=== PATIENT | male | born 1950 | race Caucasian/White ===

== ENCOUNTER 2019-07-11 11:51 | Emergency (ER) | payer MEDICARE, OTHER, SELFPAY ==
[2019-07-11 12:06] VITALS: BP 115/64; PULSE 85; RESP 18; TEMP 36.9; O2SAT 100
--- NOTE | 2019-07-11 12:30 | ED.WOUNDLAC ---
HPI - Wound/Laceration General Chief Complaint: Wound/Laceration Stated Complaint: fall Time Seen by Provider: 07/11/19 12:16 Source: patient and RN notes reviewed Mode of arrival: ambulatory Limitations: no limitations History of Present Illness HPI narrative: 69-year-old male presents with concern for skin tears after a fall last night. Reports bilateral skin tears on dorsal aspect of hands. Reports he dressed them last night, has not seen them since he put dressing on them. He denies any hand pain, decreased facial motion, swelling, decreased sensation. Extremity Location: Bilateral: hand Related Data Home Medications Medication Instructions Recorded Confirmed albuterol sulfate INHALATION 07/11/19 albuterol sulfate [ProAir HFA] INHALATION 07/11/19 atorvastatin 07/11/19 brimonidine 07/11/19 clobetasol TOPICAL 07/11/19 cyclobenzaprine mg 07/11/19 dorzolamide-timolol 07/11/19 furosemide 07/11/19 gabapentin 07/11/19 glimepiride mg 07/11/19 hydrochlorothiazide 07/11/19 meloxicam 07/11/19 metformin mg PO 07/11/19 prednisone 07/11/19 tamsulosin mg PO 07/11/19 tramadol mg 07/11/19 trimethoprim 07/11/19 Allergies Allergy/AdvReac Type Severity Reaction Status Date / Time No Known Allergies Allergy Unknown Verified 06/26/18 07:50 Review of Systems Review of Systems: Narrative: CONSTITUTIONAL: Denies malaise, chills, sweats, or fever. CARDIOVASCULAR: Denies chest pain, palpitations RESPIRATORY: Denies dyspnea. SKIN: Reports skin tears bilateral dorsal aspect of hands MUSCULOSKELETAL: Denies decreased range of motion, musculoskeletal pain NEUROLOGIC: Denies numbness, weakness. All systems reviewed & are unremarkable except as noted in HPI and below PMFSH Comments At time of signature, agree with nursing past medical, surgical, social and family history. There is no relevant family history pertinent to the presenting complaint Exam Narrative: Exam Narrative: GENERAL: Well-appearing, well-nourished, and in no acute distress. HEAD: Normocephalic, atraumatic. EYES: PERRLA, conjunctivae clear ENT: Mucous membranes moist. NECK: Supple. CHEST: No respiratory distress. Speaks in full sentences. HEART: Regular rate and rhythm EXTREMITIES: Bilateral upper extremities have normal range of motion, no edema, normal strength and sensation. SKIN: Warm, dry, no rash. Superficial skin tears noted to dorsal aspect of hands bilaterally, ranging in size from 2 cm x 1.5cm to 2 cm x 4 cm. No surrounding erythema, edema, induration, drainage, wound beds pink. NEURO: Alert and oriented x3. PSYCH: Normal mood and affect Course Course Emergency Course: Patient is aware of diagnosis, understands and agrees to treatment plan. Anticipatory guidance given. Patient agrees to follow-up as directed and is aware of reasons to seek care at the emergency department. Portions of this record may have been created with voice recognition software Vital Signs Vital signs: Vital Signs Temperature 98.5 F 07/11/19 12:06 Pulse Rate 85 07/11/19 12:06 Respiratory Rate 18 07/11/19 12:06 Blood Pressure 115/64 07/11/19 12:06 Pulse Oximetry 100 07/11/19 12:06 Temperature 98.5 F 07/11/19 12:06 Pulse Rate 85 07/11/19 12:06 Respiratory Rate 18 07/11/19 12:06 Blood Pressure 115/64 07/11/19 12:06 Pulse Oximetry 100 07/11/19 12:06 Reviewed. MDM - Wound/Laceration MDM Narrative Medical decision making narrative: Exam findings show no acute concerns or changes; patient is non-toxic appearing and is in no distress. Patient is appropriate for outpatient treatment and follow-up. Differential Diagnosis Differential diagnosis: Likely laceration, abrasion and avulsion of skin Critical Care Time Critical Care Time Critical Care Time: No Discharge Plan Discharge Clinical Impression: Skin tear of hand without complication Qualifiers: Encounter type: sequela Laterality: unspecified laterality Qu
== END 2019-07-11 12:43 | disposition home or self-care (01) ==
PROVIDERS: Emergency Provider Nurse Practitioner; PCP Family Medicine Adolescent Medicine
DX: S61.412A Laceration without foreign body of left hand, initial encounter (principal); S61.411A Laceration without foreign body of right hand, initial encounter; W19.XXXA Unspecified fall, initial encounter; E11.9 Type 2 diabetes mellitus without complications; Z79.84 Long term (current) use of oral hypoglycemic drugs
CPT/HCPCS: 99212; G0463

== ENCOUNTER 2019-10-27 05:35 | Emergency (ER) | payer MEDICARE, OTHER, SELFPAY ==
[2019-10-27] VITALS (19 sets, daily range): BP systolic 123–176; BP diastolic 95–125; PULSE 81–113; RESP 16–18; TEMP 36.1; O2SAT 70–100
--- NOTE | ~2019-10-27 | CT_ITS ---
EXAMINATION: CT abdomen pelvis w con INDICATION: Severe abdominal pain TECHNIQUE: Computed tomographic images of the abdomen and pelvis were obtained after the administrati on of 100 cc of Omnipaque 350 intravenous contrast. The dose-length product (DLP) was 990.89 mGy-cm. Automated exposure control and iterative reconstruction technique were employed. COMPARISON: 10/21/2016 FINDINGS: Minimal dependent atelectasis is present in the lung bases. The heart size is normal. Calci fied coronary artery atherosclerosis is noted. Punctate calcifications in otherwise normal appearing liver and spleen likely represent healed granulomatous disease. The pancreas, gallbladder, and adrena l glands are normal. Cysts of the kidneys measure up to 2.6 cm on the left. No pathologically enlarge d abdominal or pelvic lymph nodes are identified. There is no free intraperitoneal gas or evidence of bowel obstruction. A moderate volume of colonic stool is present. The appendix is normal. A a penile pump reservoir is present anteriorly in the left pelvis. There are changes of posterior fusion and l aminectomy from L3 through L5. There has been interval development of near-complete posterior subluxa tion of L2 on L3 with central canal stenosis. There is worsened anterior wedging of the L2 vertebral body. The L3 stabilization screw penetrates through the superior endplate of the vertebral body. Ther e are no significant signs to suggest discitis/osteomyelitis. Changes of right sacroiliac fusion are noted. IMPRESSION: 1. Near complete posterior subluxation of L2 on L3 with central canal stenosis. Emergent spine surgic al evaluation is recommended. These findings and recommendations were discussed with Dr. Leroy in the Emergency Department at 0750 hours on 10/27/2019. Reviewed, dictated and finalized at location A. IMPRESSION: 1. Near complete posterior subluxation of L2 on L3 with central canal stenosis. Emergent spine surgical evaluation is recommended. These findings and recommen dations were discussed with Dr. Leroy in the Emergency Department at 0750 hours on 10/27/2019.
--- NOTE | 2019-10-27 06:09 | ED.ABDPAIN ---
HPI - Abdominal Pain General Chief Complaint: Abdominal Pain <Ana Maria Rosales MD - Last Filed: 10/27/19 21:01> Stated Complaint: BACK & ABD PAIN <Ana Maria Rosales MD - Last Filed: 10/27/19 21:01> Time Seen by Provider: 10/27/19 05:58 <Ana Maria Rosales MD - Last Filed: 10/27/19 21:01> Source: patient <Ana Maria Rosales MD - Last Filed: 10/27/19 21:01> Mode of arrival: ambulatory <Ana Maria Rosales MD - Last Filed: 10/27/19 21:01> Limitations: no limitations <Ana Maria Rosales MD - Last Filed: 10/27/19 21:01> History of Present Illness HPI narrative: This patient is a 69 year old male who with chronic back pain who presents for evaluation of abdominal pain and back pain. PAtient reports he has history of chronic back pain and he is suppose to have surgery in November. His back pain has gotten worse over the past day. HE normally takes ibuprofen for his pain but he tried taking tramadol tonight. He reports his pain is 11/10 . He also developed diffuse abdominal pain last. He believe his back pain is so severe that it is causing his abdominal pain. He has nausea but no vomiting or diarrhea. He also denies fever , chills or urinary complaints, <Ana Maria Rosales MD - Last Filed: 10/27/19 21:01> Related Data Home Medications: Home Medications Medication Instructions Recorded Confirmed albuterol sulfate INHALATION 07/11/19 albuterol sulfate [ProAir HFA] INHALATION 07/11/19 atorvastatin 07/11/19 brimonidine 07/11/19 clobetasol TOPICAL 07/11/19 cyclobenzaprine mg 07/11/19 dorzolamide-timolol 07/11/19 furosemide 07/11/19 gabapentin 07/11/19 glimepiride mg 07/11/19 hydrochlorothiazide 07/11/19 meloxicam 07/11/19 metformin mg PO 07/11/19 prednisone 07/11/19 tamsulosin mg PO 07/11/19 tramadol mg 07/11/19 trimethoprim 07/11/19 <Ana Maria Rosales MD - Last Filed: 10/27/19 21:01> Allergies/Adverse Reactions: Allergies Allergy/AdvReac Type Severity Reaction Status Date / Time No Known Allergies Allergy Unknown Verified 10/27/19 05:37 <Ana Maria Rosales MD - Last Filed: 10/27/19 21:01> Review of Systems Review of Systems: All systems reviewed & are unremarkable except as noted in HPI and below <Ana Maria Rosales MD - Last Filed: 10/27/19 21:01> Constitutional: Constitutional: Denies chills and Denies fever(s) <Ana Maria Rosales MD - Last Filed: 10/27/19 21:01> Gastrointestinal: Gastrointestinal: Reports abdominal pain and Reports nausea <Ana Maria Rosales MD - Last Filed: 10/27/19 21:01> Genitourinary: Genitourinary: Denies hematuria, Denies dysuria, Denies urinary frequency and Denies urinary incontinence <Ana Maria Rosales MD - Last Filed: 10/27/19 21:01> Musculoskeletal: Musculoskeletal: Reports back pain <Ana Maria Rosales MD - Last Filed: 10/27/19 21:01> [facility] Past Medical History Medical History: Medical History (Updated 10/27/19 @ 11:27 by Efrain Leroy MD) Diabetes mellitus Hypertension <Ana Maria Rosales MD - Last Filed: 10/27/19 21:01> Surgical History Surgical History: Surgical History (Updated 10/27/19 @ 06:13 by Ana Maria Rosales MD) Previous back surgery <Ana Maria Rosales MD - Last Filed: 10/27/19 21:01> Social History Social History: Social History (Updated 10/27/19 @ 06:14 by Ana Maria Rosales MD) Smoking status: Never smoker Gender identity (if verbalized by the patient): Male <Ana Maria Rosales MD - Last Filed: 10/27/19 21:01> Exam Const: General: alert and ill appearing chronically <Ana Maria Rosales MD - Last Filed: 10/27/19 21:01> Nutritional Appearance: thin <Ana Maria Rosales MD - Last Filed: 10/27/19 21:01> Orientation/consciousness: patient oriented x3 <Ana Maria Rosales MD - Last Filed: 10/27/19 21:01> HENMT: Head: normocephalic and atraumatic <Ana Maria Roasles MD - Last Filed: 10/27/19 21:01> Mouth: Yes Normal oral and palatal mucosa present
[2019-10-27] MEDS: ONDANSETRON INJ 4 MG/2 ML VIAL IV PUSH (06:22)
[2019-10-27 06:45] LABS: Alanine Aminotransferase 16 U/L (4-50); Albumin Level 4.6 g/dL (3.5-5.1); Alkaline Phosphatase 93 U/L (38-126); Anion Gap 11 mmol/L (8-16); Aspartate Amino Transferase 27 U/L (17-59); Blood Urea Nitrogen 30 mg/dL (9-20); Calcium 9.6 mg/dL (8.4-10.2); Carbon Dioxide 23 mmol/L (22-30); Chloride 102 mmol/L (98-107); Estimated CRCL calculation 40 ml/min; Estimated Glomerular Filt Rate 43; Glucose 105 mg/dL (75-110); Lipase 115 U/L (23-300); Potassium 4.5 mmol/L (3.4-5.0); Sodium 136 mmol/L (137-145)
[2019-10-27 06:46] LABS: Basophils Absolute Auto 0.1 K/mm3 (0.0-0.1); Basophils Percent Auto 0.8 % (0.2-1.2); Eosinophils Absolute Auto 0.6 K/mm3 (0-0.3); Eosinophils Percent Auto 7.8 % (0-4.4); Hematocrit 42.3 % (42.0-52.0); Hemoglobin 14.2 g/dL (14.0-18.0); Immature Granulocyte Absolute 0.03 K/mm3 (0.00-0.031); Immature Granulocyte Percent A 0.4 % (0-0.5); Lymphocytes Absolute Auto 1.29 K/mm3 (0.9-3.2); Lymphocytes Percent Auto 17.1 % (18.3-44.2); Mean Corpuscular HGB Conc 33.6 g/dl (32-36); Mean Corpuscular Hemoglobin 29.5 pg (26-34); Mean Corpuscular Volume 87.8 fl (80-100); Mean Platelet Volume 10.7 fl (7.4-10.4); Monocytes Absolute Auto 0.6 K/mm3 (0.1-0.6); Monocytes Percent Auto 8.5 % (2.6-8.5); Neutrophils Percent Auto 65.4 % (45.5-73.1); Platelet Count Result 195 k/mm3 (150-375); Red Blood Count 4.82 M/mm3 (4.6-6.20); Red Cell Distribution Width 13.6 % (11.5-14.5); White Blood Count 7.6 K/mm3 (4.5-10.0)
--- NOTE | 2019-10-27 07:19 | PC.NURSE ---
Patient attempting to provide urine sample, stating I probably can't go . Patient refuses catheter for urine specimen. Urinal at bedside.
[2019-10-27 08:33] LABS: Add Urine Microscopic? YES; Appearance Urine Clear (Clear); Bilirubin Urine Negative (Negative); Blood Urine Negative (Negative); Color Urine Straw (Yellow); Glucose Urine UA Negative (Negative); Ketones Urine Trace mg/dL (Negative); Leukocyte Esterase Ur Negative LEU/UL (Negative); Nitrate Urine Negative (Negative); Protein Urine Negative (Negative); RBC Urine 0-2 /hpf (0-2); Specific Grav Ur 1.023 (1.001-1.035); Urobilinogen Urine Negative mg/dL (<2.0); WBC Urine 0-3 /hpf
--- NOTE | 2019-10-27 14:00 | PC.NURSE ---
Pt asking to speak to MD regarding transfer. MD informed and came to bedside to updated patient and answer questions. This RN attempting to obtain vital signs, pt stated get this off of me pointing to blood pressure cuff. Blood pressure cuff and monitoring leads removed per pt request. No distress noted.
--- NOTE | 2019-10-27 14:00 | PC.NURSE ---
Patient requesting to speak to MD. MD Leroy to bedside to discuss transfer with patient and answer all questions. All questions answered regarding transfer. This RN attempting to obtain vital signs, pt states get this off of me pointing to blood pressure cuff. Monitoring equipment removed per pt request.
--- NOTE | 2019-10-27 14:30 | PC.NURSE ---
Pt updated that we are waiting on a bed for him at other hospital for his transfer but that we are staying in contact with them and will update him.
--- NOTE | 2019-10-27 15:00 | PC.NURSE ---
Pt called out wanting to speak with MD. This RN spoke with pt. Pt states he doesn't want to wait for a bed at [facility] and states that he will just followup with them on Thursday. Spoke with MD and he states pt can either wait to be transferred or sign out AMA.
== END 2019-10-27 15:23 | disposition left against medical advice (07) ==
PROVIDERS: General Practice; Emergency Provider Emergency Medicine; PCP Family Medicine Adolescent Medicine
DX: M54.5 Low back pain (principal); R10.84 Generalized abdominal pain; E11.9 Type 2 diabetes mellitus without complications; I10 Essential (primary) hypertension; M48.061 Spinal stenosis, lumbar region without neurogenic claudication; M43.5X6 Other recurrent vertebral dislocation, lumbar region; Z79.84 Long term (current) use of oral hypoglycemic drugs
CPT/HCPCS: 36415; 74177; 80053; 81001; 83690; 85025; 96374; 96375; 99284; J1170; J2405; Q9967

== ENCOUNTER 2019-10-28 05:55 | Emergency (ER) | payer MEDICARE, OTHER, SELFPAY ==
[2019-10-28 05:58] VITALS: BP 171/96; PULSE 97; RESP 19; TEMP 36.3; O2SAT 99
[2019-10-28 06:22] VITALS: BP 146/103; PULSE 94; RESP 18; O2SAT 100
[2019-10-28 06:40] VITALS: BP 136/99; BP 161/98; PULSE 94; PULSE 99
[2019-10-28] MEDS: ONDANSETRON INJ 4 MG/2 ML VIAL IV PUSH (06:48)
[2019-10-28 07:18] LABS: Basophils Percent Auto 0.6 % (0.2-1.2); Eosinophils Absolute Auto 0.4 K/mm3 (0-0.3); Eosinophils Percent Auto 4.8 % (0-4.4); Hematocrit 47.2 % (42.0-52.0); Immature Granulocyte Absolute 0.02 K/mm3 (0.00-0.031); Immature Granulocyte Percent A 0.3 % (0-0.5); Lymphocytes Percent Auto 15.2 % (18.3-44.2); Mean Corpuscular HGB Conc 33.9 g/dl (32-36); Mean Corpuscular Hemoglobin 30.2 pg (26-34); Mean Corpuscular Volume 89.1 fl (80-100); Mean Platelet Volume 10.5 fl (7.4-10.4); Monocytes Absolute Auto 0.5 K/mm3 (0.1-0.6); Monocytes Percent Auto 7.5 % (2.6-8.5); Neutrophils Absolute Auto 5.2 K/mm3 (1.3-6.7); Neutrophils Percent Auto 71.6 % (45.5-73.1); Platelet Count Result 206 k/mm3 (150-375); Red Cell Distribution Width 13.8 % (11.5-14.5); White Blood Count 7.2 K/mm3 (4.5-10.0)
[2019-10-28 07:24] LABS: Alanine Aminotransferase 19 U/L (4-50); Albumin Level 5.3 g/dL (3.5-5.1); Alkaline Phosphatase 109 U/L (38-126); Anion Gap 14 mmol/L (8-16); Aspartate Amino Transferase 33 U/L (17-59); Bilirubin,Total 1.4 mg/dL (0.2-1.3); Blood Urea Nitrogen 25 mg/dL (9-20); Calcium 11.6 mg/dL (8.4-10.2); Carbon Dioxide 24 mmol/L (22-30); Chloride 101 mmol/L (98-107); Estimated Glomerular Filt Rate 50; Ethanol < 10 mg/dL (<10); Glucose 128 mg/dL (75-110); Lipase 114 U/L (23-300); Potassium 4.5 mmol/L (3.4-5.0); Sodium 139 mmol/L (137-145)
--- NOTE | 2019-10-28 08:13 | ED.NAVMDI ---
HPI - Nausea/Vomiting/Diarrhea General Chief complaint: Nausea/Vomiting/Diarrhea Stated complaint: Sick to stomach Time Seen by Provider: 10/28/19 06:59 History of Present Illness HPI Narrative: Patient is a 69-year-old male who presents the ER with nausea and vomiting. Reports he has had a couple episodes where he is vomited at home and wanted to be evaluated to receive medication for it. Patient was seen in the ER yesterday. He was diagnosed with near complete subluxation of L2 on L3 with severe central canal stenosis. It was recommended that he get an emergent neurosurgical consultation. Patient has history of chronic back issues and is scheduled for back surgery in November of this year. Due to the imaging results [facility] was contacted and patient was accepted to be a transfer and direct admit to the hospital over there. Patient reports he waited around for 4 to 5 hours and when he did not have a bed he signed out AGAINST MEDICAL ADVICE. Since going home there is been no change. Reports she has waves of pain from his back that will cause him to be nauseated and vomit. He has no new lower extremity weakness or numbness. No saddle anesthesia or difficulty sensing when he is going to urinate or defecate. He denies any incontinence or retention of stool/urine. Related Data Home Medications Medication Instructions Recorded Confirmed albuterol sulfate INHALATION 07/11/19 albuterol sulfate [ProAir HFA] INHALATION 07/11/19 atorvastatin 07/11/19 brimonidine 07/11/19 clobetasol TOPICAL 07/11/19 cyclobenzaprine mg 07/11/19 dorzolamide-timolol 07/11/19 furosemide 07/11/19 gabapentin 07/11/19 glimepiride mg 07/11/19 hydrochlorothiazide 07/11/19 meloxicam 07/11/19 metformin mg PO 07/11/19 prednisone 07/11/19 tamsulosin mg PO 07/11/19 tramadol mg 07/11/19 trimethoprim 07/11/19 Allergies Allergy/AdvReac Type Severity Reaction Status Date / Time No Known Allergies Allergy Unknown Verified 10/28/19 06:00 Review of Systems Review of Systems: All systems reviewed & are unremarkable except as noted in HPI and below Gastrointestinal: Gastrointestinal: Denies diarrhea, Reports nausea and Reports vomiting Genitourinary: Genitourinary: Denies oliguria, Denies urinary frequency and Denies urinary incontinence Musculoskeletal: Musculoskeletal: Reports back pain and Denies muscle cramps Neurologic: Denies focal weakness, Denies numbness and Denies weakness PMFSH Past Medical History Medical History (Updated 10/28/19 @ 10:43 by Mikhail Cervantes MD) Diabetes mellitus Hypertension Surgical History Surgical History (Updated 10/27/19 @ 06:13 by Ana Maria Rosales MD) Previous back surgery Social History Social History (Updated 10/27/19 @ 06:14 by Ana Maria Roasles MD) Smoking status: Never smoker Gender identity (if verbalized by the patient): Male Exam Narrative: Exam Narrative: GENERAL: Well-appearing, well-nourished, and in no acute distress. HEAD: Normocephalic, atraumatic. CHEST: Clear to auscultation. No respiratory distress. HEART: Regular rate and rhythm. Normal peripheral pulses. ABDOMEN: Soft, nontender, nondistended. EXTREMITIES: Normal range of motion with normal strength in the lower extremities. No edema. SKIN: Warm, dry, scabbing left posterior shoulder and neck where patient picks. NEURO: Lower extremity sensation and strength intact. Alert and oriented x3. PSYCH: Normal mood and affect. Course Course Emergency Course: Patient has been extensively educated on severity of his back imaging. The neurologist from [facility] is actually called him on his cell phone because he is not at the hospital today. They request a be transported to the ER for evaluation. Patient verbalizes understanding of this and is in agreement to be transferred to the ER where he is under standing that he may be there for several days. He understands that persistent ambulati
[2019-10-28 08:29] LABS: Amphetamine Screen Urine Negative (Negative); Barbiturate Screen Urine Negative (Negative); Benzodiazepines Screen Urine Negative (Negative); Cannabinoid Screen Urine Negative (Negative); Cocaine Screen Urine Negative (Negative); Methadone Screen Urine Negative (Negative); Opiate Screen Urine Negative (Negative); Phencyclidine Screen Urine Negative (Negative)
[2019-10-28 10:38] VITALS: BP 169/110; PULSE 82; O2SAT 100
--- NOTE | 2019-10-28 11:52 | PC.NURSE ---
To [facility] via [facility]. Condition stable.
== END 2019-10-28 11:52 | disposition short-term general hospital (02) ==
PROVIDERS: General Practice; Emergency Provider Emergency Medicine; PCP Family Medicine Adolescent Medicine
DX: M43.5X6 Other recurrent vertebral dislocation, lumbar region (principal); E11.9 Type 2 diabetes mellitus without complications; I10 Essential (primary) hypertension; Z79.84 Long term (current) use of oral hypoglycemic drugs; Z79.899 Other long term (current) drug therapy
CPT/HCPCS: 36415; 51701; 80053; 80307; 83690; 85025; 96374; 99285; J2405

== ENCOUNTER 2020-04-27 16:09 | Emergency (ER) | payer MEDICARE, OTHER, SELFPAY ==
--- NOTE | ~2020-04-27 | XR_ITS ---
EXAMINATION: XR abdomen/kub 1V INDICATION: Abdominal distention and left-sided abdominal lump TECHNIQUE: Supine views of the abdomen were obtained on 2 radiographs. COMPARISON: 10/27/2019 FINDINGS: There is been interval revision of previously described spinal hardware with posterior spin al fusion from T9 through the sacrum and apparent anterior body replacement device at L2-3. There is fusion of the right sacroiliac joint. New areas of vertebroplasty change are noted at T8-L1 and at L4 . The bowel gas pattern is normal. No definite abdominal mass is identified although sensitivity of r adiographs is low. Calcified atherosclerosis is noted. The visualized lung bases are clear. IMPRESSION: 1. Changes of interval spinal hardware revision without definite radiographic correlate for the patie nt's symptoms. Reviewed, dictated and finalized at location A. L SERVICES PROFESSIONAL IMPRESSION: 1. Changes of interval spinal hardware revision without definite radiographic c orrelate for the patient's symptoms.
[2020-04-27 16:10] VITALS: BP 127/60; PULSE 70; RESP 20; TEMP 36.3; O2SAT 100
--- NOTE | 2020-04-27 16:14 | ED.ABDPAIN ---
HPI - Abdominal Pain General Chief Complaint: Unspecified Stated Complaint: poss bowel obst Time Seen by Provider: 04/27/20 16:14 History of Present Illness HPI narrative: [facility] for abdominal mass and possible bowel obstruction. The patient reports that he has had a left flank mas for months, ever since he had spinal surgery. He has no pain, nausea, vomiting. He is passing gas and loose stool. He says that he showed the mass to staff today and he believes that they are over reacting. Related Data Home Medications Medication Instructions Recorded Confirmed albuterol sulfate INHALATION 07/11/19 albuterol sulfate [ProAir HFA] INHALATION 07/11/19 atorvastatin 07/11/19 brimonidine 07/11/19 clobetasol TOPICAL 07/11/19 cyclobenzaprine mg 07/11/19 dorzolamide-timolol 07/11/19 furosemide 07/11/19 gabapentin 07/11/19 glimepiride mg 07/11/19 hydrochlorothiazide 07/11/19 meloxicam 07/11/19 metformin mg PO 07/11/19 prednisone 07/11/19 tamsulosin mg PO 07/11/19 tramadol mg 07/11/19 trimethoprim 07/11/19 Allergies Allergy/AdvReac Type Severity Reaction Status Date / Time No Known Allergies Allergy Unknown Verified 04/27/20 16:23 Review of Systems Review of Systems: All systems reviewed & are unremarkable except as noted in HPI and below Constitutional: Constitutional: Denies chills and Denies fever(s) Cardiovascular: Cardiovascular: Denies chest pain Respiratory: Respiratory: Denies dyspnea Gastrointestinal: Gastrointestinal: Denies abdominal pain, Reports diarrhea, Denies nausea and Denies vomiting Genitourinary: Genitourinary: Denies hematuria and Denies dysuria [facility] Past Medical History Medical History Diabetes mellitus Hypertension Surgical History Surgical History Previous back surgery Social History Social History Smoking status: Never smoker Gender identity (if verbalized by the patient): Male Exam Const: General: no acute distress, alert and ill appearing chronically Nutritional Appearance: thin Orientation/consciousness: patient oriented x3 HENMT: Head: normal to inspection Neck: Neck: normal visual inspection Resp: Effort & Inspection: normal respiratory effort Auscultation: clear to auscultation bilaterally Cardio: Rate: regular rate Rhythm: regular rhythm GI: GI Palp: Yes Soft to palpation and No Tenderness to palpation present (GI) Other: He has a large bulging area ove rthe left flank adjacent to surgical scar. The mass is soft, nontender, and does not seem to contain bowel. the overlying skin is normal color with no signs of inflammation or infection. Course Vital Signs Vital signs: Vital Signs Temperature 36.3 C L 04/27/20 16:10 Pulse Rate 70 04/27/20 16:10 Respiratory Rate 20 04/27/20 16:10 Blood Pressure 127/60 04/27/20 16:10 Pulse Oximetry 100 04/27/20 16:10 Temperature 36.3 C L 04/27/20 16:10 Pulse Rate 70 04/27/20 17:37 Respiratory Rate 18 04/27/20 17:37 Blood Pressure 99/54 L 04/27/20 17:37 Pulse Oximetry 100 04/27/20 17:37 MDM - Abdominal Pain MDM Narrative Medical decision making narrative: No sign of bowel obstruction. Differential Diagnosis Differential diagnosis: Likely other (hernia, seroma, other) Medical Records Attestation: I reviewed the patient's medical records. Imaging Data Radiologist's impression: ITS Impressions Abdomen X-Ray 04/27/20 16:47 IMPRESSION: 1. Changes of interval spinal hardware revision without definite radiographic correlate for the patient's symptoms. Discharge Plan Discharge Clinical Impression: Abdominal distension Patient Disposition: NH Care Home/Asst Living Condition: Stable Instructions: Abdominal Pain (ED) Prescriptions: No Actio
--- NOTE | 2020-04-27 17:28 | PC.NURSE ---
[facility] return ETA 1999 Trip #[id number] [facility] contacted-return accepted by director [facility] cancelled
[2020-04-27 17:37] VITALS: BP 99/54; PULSE 70; RESP 18; O2SAT 100
== END 2020-04-27 17:39 ==
PROVIDERS: Emergency Provider Emergency Medicine; PCP Family Medicine Adolescent Medicine
DX: R14.0 Abdominal distension (gaseous) (principal); E11.9 Type 2 diabetes mellitus without complications; I10 Essential (primary) hypertension; Z79.84 Long term (current) use of oral hypoglycemic drugs
CPT/HCPCS: 74018; 99283

== ENCOUNTER 2021-01-31 11:00 | Outpatient (RCR) | payer MEDICARE, OTHER, SELFPAY ==
--- NOTE | 2020-12-06 10:14 | PTOPEVAL ---
PHYSICAL THERAPY EVALUATION AND PLAN OF CARE 12-06-20 Thank you for referring Santi Torrez to [facility].? The PT order is dated September; he states he had problems with insurance and getting in for therapy. He is scheduled to be seen for therapy? 2 x/week for 4 weeks. Please review, sign, date and return this plan of care HARMAN. I agree with and certify that the following plan of care is medically necessary. Referring Physician Date Attending Provider: Jaiden Sotelo MD PT Outpatient Evaluation Document 12/06/20 09:10 GABRIELA (Rec: 12/06/20 10:14 GABRIELA [id number]) Past Medical History Source of Past Medical History Recalled from Previous Visit, Confirmed with Patient/Family Neurological History Hx Neurological Disorders No Significant History Cardiovascular History Hx Hypercholesterolemia Yes: meds Hx Hypertension Yes: meds Respiratory History Hx COVID-19 Yes: about one year ago Gastrointestinal History Hx Gastrointestinal Disorders No Significant History Genitourinary History Hx Genitourinary Disorders No Significant History Musculoskeletal History Hx Back Pain Yes Hx Orthopedic Surgery Yes: R knee surgery Hx Osteoporosis Yes Hx Spinal Surgery Yes: Oct 2019-spinal fusion at [facility]--not sure what levels Hematological History Hx Hematological Disorders No Significant History Endocrine History Hx Diabetes Yes: meds HEENT History Hx HEENT Disorders No Significant History Integumentary History Hx Skin Disorders No Significant History Reproductive History Hx Reproductive Disorders No Significant History Psychosocial History Hx Psychiatric Disorders No Significant History Pain History History of Any Previous or Ongoing No Significant History Instance of Pain Anesthesia History Hx Anesthesia Reactions No Significant History Other History Hx Other Medical Conditions Yes: have had covid vaccine and booster Evaluation Information Problem Diagnosis leg weakness Onset Oct 2019 Subjective Information surgery on his spine Oct Query Text:As Reported By Patient/ 2019, was in hospital for 31 Family day, had 2 surgeries- had to move L lung to reach the vertebrae; to [facility] for rehab and in pt rehab, returned home May 2020; had home health therapy; Prior Level of Function Activity Level (Last 3 Months) Occupation retired Activity of Daily Living Ability Independent Indoor/H
--- NOTE | 2021-01-03 13:25 | PTOPEVAL ---
PHYSICAL THERAPY RE-EVALUATION AND UPDATED PLAN OF CARE 01-03-21 Refer to the clinical summary below, for his status today, compared to the initial evaluation. The goals were partially achieved. Continue PT 2x/wk for 4 weeks. Thank you for referring Santi Torrez to [facility].? Please review, sign, date and return this plan of care [facility]. I agree with and certify that the following plan of care is medically necessary. Referring Physician Date Attending Provider: Jaiden Sotelo MD Document 01/03/21 12:30 GABRIELA (Rec: 01/03/21 13:25 GABRIELA [id number]) Assessment Status Re-evaluation Subjective Information Santi reports: has not had any Query Text:As Reported By Patient/ falls; feels like therapy has Family really helped; is doing his exercises at home; have not have any falls; bought a cane but have not used it; is walking better; sometimes can get up from a chair that does not have arm rests, not need hands to get up; is stepping over the lip of the shower easier, with the L leg, do not have to use his hands to lift it up anymore; want to be able to walk without the walker; want to continue with therapy; Pain Assessment Timing of Pain Assessment Timing of Pain Assessment Assessment Self Report Self Report Pain Level 0 Pain Score Pain Score 0: Self Report Lower Extremity Muscle Strength Testing General Lower Extremity Strength Gross Lower Extremity Strength functional strength L LE: - supine SLR x 6 reps ~ 2 off mat; hip abduction x 20 reps - side lying hip abduction to 0' x 10 reps; Transfer Assessment Bed Transfer Assessment Sit to Stand Bed Transfer Ability Independent Stand to Sit Bed Transfer Ability Independent Bed Transfer Comments required B UE use for sit/ stand transfer; unable to perform with 1 UE use Bed Mobility Assessment Bed Mobility Bed Type Mat Overall Bed Mobility Ability Independent Cues Needed for Bed Mobility None Bed Mobility Comments indep with legs on/off mat with good speed Balance Assessment Tinetti Balance Assessment Sitting Balance Steady, safe Ability to Arise Able, uses arms to help Attempts to Arise Arises on 1st attempt Immediate Standing Dany
--- NOTE | 2021-01-10 15:34 | PCPTNOTE ---
Patient did not show up for scheduled appointment this date. Called and left voicemail about missed appointment. Reminded of upcoming appointment on Thursday01/15/21 @ 13:30. This is Pt's first N/S.
--- NOTE | 2021-01-15 13:59 | PCPTNOTE ---
Patient did not show up for scheduled appointment this date. Called and spoke with Pt, he apologized for forgetting his appointment the other day and fell asleep today. Reminded Pt of upcoming appointment on 01/18/21 @14:15. Pt confirmed he would be there.
--- NOTE | 2021-01-31 11:40 | PTOPEVAL ---
PHYSICAL THERAPY DISCHARGE 01-31-21 Refer to the clinical summary below for his status today, compared to the last reevaluation. The goals were partially achieved. He will be discharged at this time. And is to continue with his exercises and increase his walking tolerance at home. Santi reports frustration and disappointment that he has to use the wheeled walker to walk; stated he does not want to be a cripple. Reinforced to him that he is able to get around, live alone and does not need any assistance. Thank you for referring Santi Torrez to [facility].? Please review, sign, date and return this Discharge report HARMAN. I agree with and certify that the following plan of care is medically necessary. Referring Physician Date Attending Provider: Jaiden Sotelo MD Document 01/31/21 10:55 GABRIELA (Rec: 01/31/21 11:40 GABRIELA [id number]) Assessment Status Discharge Subjective Information Santi reports: walking is Query Text:As Reported By Patient/ better, using the cane Family sometimes in the house, but not very steady; have not had any falls; is walking out in the community with the walker- -do not like it, but need it to be steady; do not want to be a cripple anymore--wants to walk without any cane or walker; is doing all of the exercises at home; is able to do everything himself in his apartment and does not have to have anyone help him; Pain Assessment Timing of Pain Assessment Timing of Pain Assessment Assessment Pain Scale Pain Scale Used Numeric (1 - 10) Self Report Pain Assessment Bilateral Back Reported Pain Level 7 Pain Frequency Chronic,Continuous Pain Score Pain Score 7: Self Report Additional Pain Score Comments did not sleep well last night and back hurting more today; Interventions Used Interventions Used By Clinicians Education Lower Extremity Muscle Strength Testing General Lower Extremity Strength Gross Lower Extremity Strength supine: L SLR ~ 2 off mat x 7 reps; heel slide x 7 reps; side lying hip abduction 5-10' x 15 reps Balance Assessment Tinetti Balance Assessment Sitting Balance Steady, safe Ability to Arise Able, uses arms to help Attempts to Arise Arises on 1st attempt Immediate Standing Balance Steady w/o support Standing Balance Steady, wide stance Nudged Response Steady Standing with Eyes Closed Steady Step Pattern Turning 36
== END 2021-01-31 16:23 | disposition home or self-care (01) ==
LOC: ANHPT 11:00
PROVIDERS: PCP Family Medicine Adolescent Medicine; Visit Provider Family Medicine Adolescent Medicine
DX: M62.81 Muscle weakness (generalized) (principal); Z98.890 Other specified postprocedural states
CPT/HCPCS: 97110; 97116; 97140; 97162; 97530

== ENCOUNTER → 2021-03-15 11:37 | Outpatient (CLI) | payer MEDICARE, OTHER, SELFPAY ==
--- NOTE | ~2021-03-15 | US_ITS ---
EXAMINATION: US renal BI EXAM DATE: 03/15/2021 11:58 INDICATION: Essential primary hypertension . TECHNIQUE: Multiple grayscale and Doppler images of the kidneys were obtained (by a technologist who performed the scan) and subsequently reviewed. There is no prior study for comparison. FINDINGS: Mild bilateral renal cortical thinning. Right kidney: There is normal contour and mildly increased echogenicity. It measures 9.7 x 5.5 x 5.9 centimeters. There is a 1 cm cyst. There is no hydronephrosis. Left kidney: There is normal contour and mildly increased echogenicity. It measures 9.7 x 5.5 x 4.5 centimeters. Subcentimeter anechoic lesion consistent with cyst. There is no hydronephrosis. Bladder unremarkable. IMPRESSION: 1. No hydronephrosis. 2. Mild atrophy and medical renal disease. Reviewed, dictated and finalized at location B. TING VEHICLE INFANTRYMAN
== END ==
PROVIDERS: Visit Provider Internal Medicine Nephrology
DX: R79.89 Other specified abnormal findings of blood chemistry (principal); I10 Essential (primary) hypertension; E11.9 Type 2 diabetes mellitus without complications; N18.9 Chronic kidney disease, unspecified
CPT/HCPCS: 76775

== ENCOUNTER 2021-04-11 12:45 | Inpatient (IN) | payer MEDICARE, MEDICAID, SELFPAY ==
--- NOTE | ~2021-04-11 | XR_ITS ---
EXAMINATION: XR surgery orthopedic DATE: 04/12/2021 12:27 INDICATION: Right hip intertrochanteric nailing TECHNIQUE: 3 fluoroscopic images of the right hip were obtained during procedure performed by Dr. Taylor rabago. Radiologist was not present for the imaging or procedure. The amount of fluoroscopy time used d uring this procedure was 3.1 minutes. COMPARISON: 04/11/2021 FINDINGS: Internal fixation of the previously seen nondisplaced intratrochanteric fracture of the proximal righ t femur with an antegrade intramedullary woody and femoral neck dynamic compression. No new fractures i dentified. Mild osteoarthritis at the right hip. Vascular calcifications along the arteries at the pr oximal right thigh. IMPRESSION: 1. Internal fixation of an intratrochanteric fracture of the proximal right femur which remains in ne ar-anatomic alignment. Reviewed, dictated and finalized at location A. DENT BUYER IMPRESSION: 1. Internal fixation of an intratrochanteric fracture of the proximal right fem ur which remains in near-anatomic alignment.
--- NOTE | ~2021-04-11 | XR_ITS ---
EXAMINATION: XR chest 1V DATE: 04/11/2021 13:29 INDICATION: Preoperative evaluation post fall with hip fracture. TECHNIQUE: frontal view of the chest was obtained. COMPARISON: Chest radiograph dated 12/30/2018 FINDINGS: Lung volumes are small. Mild biapical pleural-parenchymal scarring. Calcified nodules at the right hugo ng base and calcified right hilar lymph nodes consistent with old granulomatous disease. No pulmonary edema, pleural effusion or pneumothorax. The cardiomediastinal silhouette is normal. Postoperative c hanges in the thoracic and lumbar spine including multiple vertebral plasties, extensive posterior sp inal fusion with bilateral vertical woody and pedicle screw fixations and likely corpectomy with interb héctor fusion device spanning at least one vertebral level at the upper lumbar spine. Correlate with jon gical history. IMPRESSION: 1. Small lung volumes. No acute cardiopulmonary disease. Reviewed, dictated and finalized at location A. ER TENDERS SUPERVISOR
--- NOTE | ~2021-04-11 | US_ITS ---
EXAMINATION: US carotid duplex BI DATE: 04/17/2021 11:05 INDICATION: Orthostasis. TECHNIQUE: Grayscale, color Doppler, and pulsed Doppler images of the cervical carotid arteries were obtained. The degree of vessel stenosis is placed in one of the following categories: normal, <50%, 5 0-69%, >=70% but less than near-occlusion, near-occlusion, or total occlusion. Note that percent sten osis relative to normal distal artery lumen diameter is indirectly measured from velocity measurement s as described by Noé, et al. Radiology 2003; 229:340-346. COMPARISON: None. FINDINGS: RIGHT: The right common carotid artery (CCA) peak systolic velocity (PSV) is 123 cm/s. The right internal ca rotid artery (ICA) PSV is 68 cm/s. The right ICA end-diastolic velocity (EDV) is 9 cm/s. The right IC A/CCA PSV ratio is 0.6. Grayscale and color Doppler images yield an estimate of <50% diameter reducti on from plaque in the ICA. The external carotid artery (ECA) PSV is 59 cm/s. There is antegrade flow in the right vertebral artery. LEFT: The left CCA PSV is 113 cm/s. The left ICA PSV is 93 cm/s. The left ICA EDV is 27 cm/s. The left ICA/ CCA PSV ratio is 0.8. Grayscale and color Doppler images yield an estimate of <50% diameter reduction from plaque in the ICA. The ECA PSV is 86 cm/s. There is antegrade flow in the left vertebral artery . IMPRESSION: 1. <50% stenosis in the right internal carotid artery. 2. <50% stenosis in the left internal carotid artery. Reviewed, dictated and finalized at location A. RATORY COORDINATOR
--- NOTE | ~2021-04-11 | CT_ITS ---
EXAMINATION: CT brain wo con INDICATION: Persistent orthostasis COMPARISON: None TECHNIQUE: Standard unenhanced head CT. The dose-length product (DLP) was 605.33 mGy-cm. The mA was a djusted according to patient size. Iterative reconstruction technique was employed. FINDINGS: There is no acute intraparenchymal hemorrhage. No evidence of mass lesion. No evidence of a cute infarction. There is moderate periventricular and subcortical hypodensity probably related to sm all vessel ischemic disease. There is moderate prominence of the sulci and ventricles related to cere bral atrophy. Intracranial calcified cerebral atherosclerosis is noted. There are no extra-axial tra ections. There is no mass effect or midline shift. Changes in the globes are likely from ocular lens surgery. There is mild mucosal thickening of the paranasal sinuses. IMPRESSION: 1. No acute intracranial abnormality. 2. Age related findings. Reviewed, dictated and finalized at location A. OMER OPERATOR
--- NOTE | ~2021-04-11 | US_ITS ---
US right upper quadrant INDICATION: History of ascites. PROCEDURE: Realtime right upper abdominal ultrasound. COMPARISON: No prior studies for comparison. FINDINGS: The pancreas is normal without focal mass or pancreatic ductal dilation. Liver echotexture is normal without focal mass or intrahepatic biliary dilatation. There is normal directional flow i n the portal vein. The gallbladder is normal without stones, gallbladder wall thickening or pericholecystic fluid. Comm on bile duct measures 4 mm. No sonographic Tesfaye's sign. IMPRESSION: 1: Unremarkable limited abdominal ultrasound. Reviewed, dictated and finalized at location A. RBACK MACHINE OPERATOR
--- NOTE | ~2021-04-11 | XR_ITS ---
XR hip RT 2V w AP pelvis DATE: 04/11/2021 13:29 INDICATION: Right hip deformity after fall TECHNIQUE: AP pelvis. AP and lateral views of right hip COMPARISON: None FINDINGS: There is a nondisplaced linear right intertrochanteric hip fracture. Diffuse osteopenia. Alignment is intact at the pubic symphysis and sacroiliac joints. Fusion across right sacroiliac joint. Posterior and interbody lumbosacral spinal surgical fusion. IMPRESSION: Nondisplaced linear right intertrochanteric hip fracture Reviewed, dictated and finalized at location B. CTOR OF HOUSING AND ENERGY SERVICES
--- NOTE | ~2021-04-11 | NM_ITS ---
EXAMINATION: NM herlinda stress w perfusion DATE: 04/15/2021 11:56 INDICATION: Elevated troponin. Abnormal EKG. TECHNIQUE: Rest images were obtained following intravenous administration of 9.51 mCi Tc99m tetrofosm in (Myoview). The patient was infused intravenously with Lexiscan (Regadenoson). Then, 28.7 mCi Tc99m tetrofosmin (Myoview) was administered intravenously, and stress images were obtained. Data was chandra nstructed into short axis and horizontal and vertical long axis SPECT images. Gated SPECT images were also obtained. COMPARISON: None. FINDINGS: There is no definite reversible or fixed perfusion abnormality to suggest ischemia or infar ction. There is normal left ventricular chamber size, wall motion and ejection fraction. Left ventr icular ejection fraction measures >70%. IMPRESSION: 1. Normal myocardial perfusion at rest and during stress. 2. Left ventricular ejection fraction measuring >70%. Reviewed, dictated and finalized at location A. AID
[2021-04-11 12:51] VITALS: BP 139/89; PULSE 73; RESP 16; TEMP 36.1; O2SAT 100
--- NOTE | 2021-04-11 12:59 | ECG_ITS ---
Measurements Intervals [place] Rate: 73 P: 37 AK: 177 QRS: 39 QRSD: 148 T: 19 QT: 398 QTc: 440 Interpretive Statements SINUS RHYTHM RIGHT BUNDLE BRANCH BLOCK MINIMAL Q WAVES- INFERIOR LEADS BASELINE ARTIFACT- I, II, III, AVR, AVL, AVF, V1-V6 ABNORMAL ECG Electronically Signed On 04-11-2021 13:07:57 FORGING ROLL OPERATOR by Abrahan Felipe D.O.
--- NOTE | 2021-04-11 13:07 | ED.FALL ---
HPI - Fall General Chief Complaint: Fall Stated Complaint: fall/hip pain Time Seen by Provider: 04/11/21 12:59 Source: patient, EMS and RN notes reviewed Mode of arrival: EMS Limitations: no limitations History of Present Illness HPI Narrative: 71-year-old male presented to the emergency department for evaluation of right hip pain after a fall in the parking lot. Patient denies striking his head. Patient denies loss of consciousness. Patient states the cause of the fall was slipping on ice. Patient did land on his right side and injured his right hip. Upon arrival to emerge department patient does have shortening and external rotation of the right hip. Patient reports no prior history of surgery on that hip. Patient does have a prior surgical history of spine surgery. Related Data Home Medications Medication Instructions Recorded Confirmed atorvastatin 20 mg PO DAILY 07/11/19 03/06/21 brimonidine 1 drp OPHTHALMIC (EYE) DAILY 07/11/19 03/06/21 doxazosin 2 mg tablet 2 mg PO DAILY 03/06/21 03/06/21 furosemide 20 mg tablet 60 mg PO DAILY tablet 03/06/21 03/06/21 gabapentin 600 mg tablet 1,200 mg PO BID tablet 03/06/21 03/06/21 glimepiride 2 mg tablet 2 mg PO DAILY tablet 03/06/21 03/06/21 metformin 500 mg tablet,extended 1,000 mg PO BID tablet 03/06/21 03/06/21 release 24 hr tamsulosin 0.4 mg capsule 0.8 mg PO QHS cap 03/06/21 03/06/21 trazodone 50 mg tablet 50 mg PO QHS PRN 03/06/21 03/06/21 B-complex with vitamin C 1 tablet PO DAILY 04/01/21 ascorbic acid (vitamin C) 500 mg 500 mg PO DAILY 04/01/21 tablet latanoprost 0.005 % eye drops 1 drp EACH EYE DAILY 04/01/21 pseudoephedrine HCl 120 mg 120 mg PO Q12H 04/01/21 tablet,extended release zinc 50 mg tablet 50 mg PO DAILY 04/01/21 Allergies Allergy/AdvReac Type Severity Reaction Status Date / Time No Known Allergies Allergy Unknown Verified 04/11/21 18:41 Review of Systems Review of Systems: CONSTITUTIONAL: Denies fever, chills, or sweats. EYES: Denies visual changes, redness, or discharge. ENT: Denies rhinorrhea, congestion, sore throat, or otalgia. CARDIOVASCULAR: Denies chest pain, palpitations, or edema. RESPIRATORY: Denies cough or dyspnea. GASTROINTESTINAL: Denies abdominal pain, nausea, vomiting, or diarrhea. GENITOURINARY: Denies dysuria or hematuria. SKIN: Denies rash or itching. MUSCULOSKELETAL: Right hip pain NEUROLOGIC: Denies headache, numbness, or weakness. PSYCHIATRIC: Denies anxiety or depression. All systems reviewed & are unremarkable except as noted in HPI and below PMFSH Past Medical History Medical History BPH with obstruction/lower urinary tract symptoms Chronic pain Diabetes mellitus Diabetes type 2, controlled GERD (gastroesophageal reflux disease) Hypertension Low back pain, unspecified Mild persistent asthma, uncomplicated Osteoporosis Polyneuropathy, unspecified Primary open-angle glaucoma, bilateral, moderate stage Surgical History Surgical History History of knee surgery Previous back surgery Family History Family History (Updated 04/01/21 @ 11:08 by Alicia Obregon MA) Father CAD (coronary artery disease) Alzheimer disease Mother Alzheimer disease Social History Social History (Updated 04/01/21 @ 11:09 by Alicia Obregon MA) Smoking status: Never smoker Second hand tobacco smoke exposure: No Alcohol intake: former Substance use: never Substance use type: does not use Gender identity (if verbalized by the patient): Male Sexual Orientation (if Verbalized by the Patient): Straight or Heterosexual Spiritual care concerns: No Agree to blood products: Yes Exam Narrative: APPEARANCE: Well appearing, no pain, no distress, well-nourished. HEAD: normocephalic, atraumatic. NECK: Supple. No adenopathy, no masses. RESPIRATORY: Airway patent, respirations nonlabored. Ambreen
[2021-04-11] MEDS: fentaNYL CITRATE INJ (*CRX) 100 MCG/2 ML VIAL 75 MCG IV PUSH (13:08)
[2021-04-11 13:17] LABS: Basophils Percent Auto 0.5 % (0.2-1.2); Eosinophils Absolute Auto 0.4 K/mm3 (0-0.3); Eosinophils Percent Auto 6.9 % (0-4.4); Hematocrit 32.2 % (42.0-52.0); Hemoglobin 10.6 g/dL (14.0-18.0); Immature Granulocyte Absolute 0.03 K/mm3 (0.00-0.031); Immature Granulocyte Percent A 0.5 % (0-0.5); Lymphocytes Absolute Auto 1.51 K/mm3 (0.9-3.2); Lymphocytes Percent Auto 26.1 % (18.3-44.2); Mean Corpuscular HGB Conc 32.9 g/dl (32-36); Mean Corpuscular Hemoglobin 29.9 pg (26-34); Mean Corpuscular Volume 90.7 fl (80-100); Mean Platelet Volume 10.7 fl (7.4-10.4); Monocytes Absolute Auto 0.7 K/mm3 (0.1-0.6); Monocytes Percent Auto 11.8 % (2.6-8.5); Neutrophils Absolute Auto 3.1 K/mm3 (1.3-6.7); Neutrophils Percent Auto 54.2 % (45.5-73.1); Platelet Count Result 148 k/mm3 (150-375); Red Blood Count 3.55 M/mm3 (4.6-6.20); Red Cell Distribution Width 14.2 % (11.5-14.5); White Blood Count 5.8 K/mm3 (4.5-10.0)
[2021-04-11 13:31] LABS: INR 1.1; Prothrombin Time 13.8 Seconds (11.1-14.7)
[2021-04-11 13:32] LABS: Partial Thromboplastin Time 27.4 SECONDS (22.3-36.8)
[2021-04-11 13:55] LABS: Alanine Aminotransferase 21 U/L (4-50); Albumin Level 4.6 g/dL (3.5-5.1); Alkaline Phosphatase 69 U/L (38-126); Anion Gap 11 mmol/L (8-16); Aspartate Amino Transferase 33 U/L (17-59); Bilirubin,Total 0.7 mg/dL (0.2-1.3); Blood Urea Nitrogen 43 mg/dL (9-20); Calcium 8.8 mg/dL (8.4-10.2); Carbon Dioxide 26 mmol/L (22-30); Chloride 102 mmol/L (98-107); Estimated CRCL calculation 33 ml/min; Estimated Glomerular Filt Rate 33; Glucose 133 mg/dL (65-110); Potassium 3.5 mmol/L (3.4-5.0); Sodium 139 mmol/L (137-145)
[2021-04-11] MEDS: HYDROmorphone HCL INJ (*CRX) 1 MG/ML SYR 0.5 MG IV PUSH ×3 (15:32→23:35)
[2021-04-11 16:31] VITALS: BP 120/76; PULSE 77; RESP 14; O2SAT 97
[2021-04-11 17:01] VITALS: BP 104/67; PULSE 80; RESP 14; O2SAT 96
[2021-04-11 18:15] VITALS: BP 118/67; PULSE 97; RESP 20; TEMP 37.1; O2SAT 94; BMI 26.1
[2021-04-11 18:20] VITALS: BMI 26.1
[2021-04-11 20:00] VITALS: PULSE 97; RESP 20; O2SAT 94
[2021-04-11 22:00] VITALS: BP 102/60; PULSE 107; RESP 18; TEMP 36.4; O2SAT 97
[2021-04-12] VITALS (16 sets, daily range): BP systolic 121–151; BP diastolic 66–90; PULSE 85–109; RESP 14–22; TEMP 36.1–37.1; O2SAT 92–100
--- NOTE | 2021-04-12 | ECHO_ITS ---
Patient Info Name: Santi Torrez Age: 71 years : 1950 Gender: Male Ht: 71 in Wt: 187 lbs BSA: 2.07 m2 HR: 99 bpm BP: 143 / 84 mmHg Heart Rhythm: Sinus Rhythm Technical Quality: Fair Exam Date: 04/12/2021 5:18 PM Exam Location: [facility] Pulmonary Patient Status: Inpatient Admit Date: 04/11/2021 Staff Ordering Physician: Samira Garcia PA-C Ict Programmer: Rachel Gallo RDCS Attending Provider: Samira Garcia PA-C Referring Physician: Jose ASHTON; Exam Type: CA echo doppler color flow Study Info Indications - Leg swelling Complete two-dimensional, color flow and Doppler transthoracic echocardiogram is performed. Summary 1. Left ventricular chamber dimension is normal. 2. Left ventricular systolic function is normal, estimated at 65-70%. 3. There is no increased left ventricular wall thickness. 4. The left ventricular diastolic function is grade I diastolic dysfunction. 5. Right ventricular chamber dimension is mildly enlarged. 6. There is no aortic valve stenosis. 7. There is trace tricuspid valve regurgitation. 8. No pulmonary hypertension, estimated pulmonary arterial systolic pressure is 30 mmHg. 9. Right ventricular systolic function is mild to moderately reduced with relative sparing of the apex consistent with Snigh sign which can be seen with pulmonary embolism and/or RV infarction. Clinical correlation advised. Left Ventricle Left ventricular chamber dimension is normal. Left ventricular systolic function is normal, estimated at 65-70%. There is no increased left ventricular wall thickness. The left ventricular diastolic function is grade I diastolic dysfunction. Right Ventricle Right ventricular chamber dimension is mildly enlarged. Right ventricular systolic function is mild to moderately reduced with relative sparing of the apex consistent with Singh sign which can be seen with pulmonary embolism and/or RV infarction. Clinical correlation advised. Left Atria Left atrial chamber dimension is normal. Right Atria Right atrial chamber dimension is normal. Aortic Valve The aortic valve is trileaflet. There is no aortic valve stenosis. There is no aortic valve regurgitation. There is mild aortic valve calcification. Pulmonic Valve The pulmonic valve is not well visualized. There is trace pulmonic regurgitation. Mitral Valve The mitral valve has normal leaflets. There is trace mitral valve regurgitation. The mitral valve annulus is mildly calcified. Tricuspid Valve The tricuspid valve leaflets are normal. There is trace tricuspid valve regurgitation. No pulmonary hypertension, estimated pulmonary arterial systolic pressure is 30 mmHg. Pericardium/Pleural The pericardium appears normal. There is no pericardial effusion. Inferior Vena Cava Normal inferior vena cava with >50% collapse upon inspiration consistent with normal right atrial pressure, 5 mmHg. Aorta The aortic root size at the sinus of Valsalva is normal. There is mild-moderate aortic atherosclerosis. Left Ventricular Outflow Tract Name Value Normal LVOT 2D LVOT Diameter 2.1 cm LVOT Doppler
--- NOTE | 2021-04-12 00:25 | PM.IMHP ---
H&P: HPI History of Present Illness Date/Time: 04/11/21 [id number] this is a 71-year-old male patient presented to the emergency room for evaluation of right hip pain that occurred at [facility]. The patient stated that he was coming in to get some labs drawn. He said that he slipped on the ice and fell but he did not hit his head or lose consciousness. The patient stated he just slipped on the ice and could not get up and was complaining of severe right hip pain. Upon arrival to the emergency room the patient had a shortened and externally rotated right hip. Patient stated he has had no prior history of having any hip surgery. Hip and pelvis x-ray was read as nondisplaced linear right intratrochanteric hip fracture. Chest x-ray small lung volumes. No acute cardiopulmonary disease. Patient's H&H is 10.6 and 32.2. Platelet count 148. Patient's BUN is 43 and creatinine is 2.0. The patient was given fentanyl and Dilaudid in the emergency room. The patient states that he still having a lot of discomfort. He also has chronic back pain as well. The patient is being admitted to inpatient services on the date of service of 04/11/2021. Chief Complaint: Fall right hip pain Review of Systems Review of Systems: All systems reviewed & are unremarkable except as noted in HPI and below Constitutional: Constitutional: Reports as per HPI and Reports no additional constitutional complaints Eyes: Eyes: Reports as per HPI and Reports no additional eye complaints ENT: Reports system reviewed and no additional complaints, except as documented and Reports Normal hearing present Cardiovascular: Cardiovascular: Reports no additional cardiovascular complaints Respiratory: Respiratory: Reports no additional respiratory complaints and Reports no additional respiratory complaints Gastrointestinal: Gastrointestinal: Reports as per HPI and Reports no additional gastrointestinal complaints Musculoskeletal: Musculoskeletal: Reports no additional musculoskeletal complaints Integumentary/Breasts: Skin/Breast: Reports system reviewed and no additional complaints, except as docu and Reports as per HPI Neurologic: Reports system reviewed and no additional complaints, except as documented, Reports as per HPI and Reports Normal hearing present Psychiatric: Psychiatric: Reports no additional psychiatric complaints and Reports as per HPI Endocrine: Endocrine: Reports no additional endocrine complaints Hematologic/Lymphatic: Hematologic/Lymphatic: Reports no additional hematologic/lymphatic complaints Allergic/Immunologic: Allergic/Immunologic: Reports no additional allergic/immunologic complaints [facility] Past Medical History Medical History (Updated 04/12/21 @ 00:34 by Sofia Spaulding NP) BPH with obstruction/lower urinary tract symptoms Chronic pain Diabetes mellitus Diabetes type 2, controlled GERD (gastroesophageal reflux disease) Hyperlipidemia Hypertension Low back pain, unspecified Mild persistent asthma, uncomplicated Osteoporosis Polyneuropathy, unspecified Primary open-angle glaucoma, bilateral, moderate stage Surgical History Surgical History History of knee surgery Previous back surgery Family History Family History Father CAD (coronary artery disease) Alzheimer disease Mother Alzheimer disease Social History Social History (Updated 04/12/21 @ 00:35 by Sofia Spaulding NP) Social History: The patient is a lifelong nonsmoker. The patient does not use any alcohol marijuana or illicit drugs. 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 He is . He has 1 son who is the durable power assisted living manager for healthcare. Code status full code Smoking status: Never smoker Second hand tobacco smoke exposure: No Alcohol intake: former Substance use: never Substance use type: does not use
[2021-04-12] MEDS: TAMSULOSIN HCL 0.4 MG CAPSULE 0.8 MG PO (00:51)
[2021-04-12] MEDS: GABAPENTIN 400 MG CAPSULE 1200 MG PO (00:51)
[2021-04-12 06:02] LABS: Basophils Percent Auto 0.4 % (0.2-1.2); Eosinophils Absolute Auto 0.2 K/mm3 (0-0.3); Eosinophils Percent Auto 3.1 % (0-4.4); Hematocrit 28.5 % (42.0-52.0); Hemoglobin 9.5 g/dL (14.0-18.0); Immature Granulocyte Absolute 0.02 K/mm3 (0.00-0.031); Immature Granulocyte Percent A 0.3 % (0-0.5); Lymphocytes Absolute Auto 1.07 K/mm3 (0.9-3.2); Lymphocytes Percent Auto 13.9 % (18.3-44.2); Mean Corpuscular HGB Conc 33.3 g/dl (32-36); Mean Corpuscular Hemoglobin 29.9 pg (26-34); Mean Corpuscular Volume 89.6 fl (80-100); Mean Platelet Volume 10.8 fl (7.4-10.4); Monocytes Absolute Auto 1.1 K/mm3 (0.1-0.6); Neutrophils Absolute Auto 5.3 K/mm3 (1.3-6.7); Neutrophils Percent Auto 68.3 % (45.5-73.1); Platelet Count Result 139 k/mm3 (150-375); Red Blood Count 3.18 M/mm3 (4.6-6.20); Red Cell Distribution Width 14.1 % (11.5-14.5); White Blood Count 7.7 K/mm3 (4.5-10.0)
[2021-04-12 06:41] LABS: Lactate Dehydrogenase 418 U/L (313-618)
[2021-04-12 07:48] LABS: Immature Reticulocyte Fraction 14.3 % (3.0-15.9); Reticulocyte Percent 1.99 % (0.7-4.3); Reticulocytes Absolute 0.06 B/L (32.2-175.7)
[2021-04-12 08:30] LABS: Glucose Point of Care 87 mg/dl (65-105)
[2021-04-12 08:55] LABS: Iron 23 ug/dL (49-181)
[2021-04-12 08:57] LABS: Alanine Aminotransferase 19 U/L (4-50); Albumin Level 3.8 g/dL (3.5-5.1); Alkaline Phosphatase 59 U/L (38-126); Anion Gap 8 mmol/L (8-16); Aspartate Amino Transferase 34 U/L (17-59); Bilirubin,Total 0.7 mg/dL (0.2-1.3); Blood Urea Nitrogen 38 mg/dL (9-20); Calcium 8.3 mg/dL (8.4-10.2); Carbon Dioxide 27 mmol/L (22-30); Chloride 104 mmol/L (98-107); Estimated CRCL calculation 38 ml/min; Estimated Glomerular Filt Rate 40; Glucose 93 mg/dL (65-110); Magnesium 1.4 mg/dL (1.6-2.3); Potassium 3.4 mmol/L (3.4-5.0); Sodium 139 mmol/L (137-145)
[2021-04-12 09:13] LABS: Percent Iron Saturation 8 % (20-50)
--- NOTE | 2021-04-12 09:29 | PM.CNOR ---
Assessment and Plan Assessment and plan (1) Closed fracture of right hip: Qualifiers: Encounter type: initial encounter Qualified Code(s): S72.001A - Fracture of unspecified part of neck of right femur, initial encounter for closed fracture <Isabel Madrid, HISTOLOGICAL ILLUSTRATOR - Last Filed: 04/12/21 10:04> Code(s): S72.001A - Fracture of unspecified part of neck of right femur, initial encounter for closed fracture <Isabelsa Sarah Madrid, HISTOLOGICAL ILLUSTRATOR - Last Filed: 04/12/21 10:04> Status: Acute <Isabel Madrid, HISTOLOGICAL ILLUSTRATOR - Last Filed: 04/12/21 10:04> Assessment and Plan: Radiographs of the right hip s/p injury reveal a nondisplaced linear right intertrochanteric hip fracture. History, exam and radiographs reviewed with the patient. Condition, nature, etiology and course of natural history discussed. Conservative and operative treatment options reviewed as well as the risks and benefits of both. The patients questions were answered. The patient desires operative treatment. Discussed Right Intertrochanteric Nail Risks of surgery including but not limited to neurovascular damage, wound complications, blood clot, pulmonary embolus, stroke, myocardial infarction, anesthetic risks up to and including were reviewed. Continued pain and possible dysfunction were explained. No guarantees were offered. The patient understands and wishes to proceed. Plan: Right Intertrochanteric Nail by Dr. Alma MENON. Bedrest. Pain control. Ice. <Isabel Madrid, HISTOLOGICAL ILLUSTRATOR - Last Filed: 04/12/21 10:04> (2) Knee effusion, right: Code(s): M25.461 - Effusion, right knee <Isabel Madrid, HISTOLOGICAL ILLUSTRATOR - Last Filed: 04/12/21 10:04> Status: Acute <Isabel Madrid, HISTOLOGICAL ILLUSTRATOR - Last Filed: 04/12/21 10:04> Assessment and Plan: History of right knee pain/effusion. Previous surgery for open meniscus repair per patient report. No radiographs on file. Patient does not report worsening knee pain since his fall. He does have a moderate knee joint effusion but no redness/warmth or signs of infection. Would benefit from knee radiograph after stabilization of hip joint. Possibly follow up as an outpatient. <BIANCA Villegas - Last Filed: 04/12/21 10:04> Additional Plan Reviewed history, radiographs and treatment options with attending MD, Dr. Marquez. Recommended proceeding with surgical intervention with right IT nail. <BIANCA Villegas - Last Filed: 04/12/21 10:04> History of Present Illness HPI Consult date: 04/12/21 <BIANCA Villegas - Last Filed: 04/12/21 10:04> 04/12/21 <Toi Marquez MD - Last Filed: 04/12/21 10:56> Consult reason: fracture <BIANCA Villegas - Last Filed: 04/12/21 10:04> Chief complaint: right hip fracture <BIANCA Villegas - Last Filed: 04/12/21 10:04> Narrative: 71 year old male admitted to [facility] s/p fall in the parking lot. He was coming to [place] to have a EKG performed as ordered by his PCP when he slipped on ice and fell in the hospital parking lot. He was then unable to stand or bear weight on the RLE. He denies hitting his head or LOC. He has a history of significant lower back pain and multiple surgeries. He has chronic right knee pain and a history of a right knee meniscal repair several years ago. Radiographs of the right hip in the ER revealed a a nondisplaced linear right intertrochanteric hip fracture. Orthopedic surgery consulted by ER physician. Patient admitted to the hospitalist service. <BIANCA Villegas - Last Filed: 04/12/21 10:04> Review of Systems Constitutional: Constitutional: Reports no additional constitutional complaints, Denies chills, Denies fatigue, Denies fever(s), Denies headache(s) and Denies weakness <BIANCA Villegas - Last Filed: 04/12/21 10:04> Eyes: Eyes: Denies change in vision <BIANCA Villegas - Last Filed: 04/12/21 10:04> ENT: Reports Normal hearing present and Denies headache(s) <Isabel Madrid
--- NOTE | 2021-04-12 09:45 | WPDANESEPPF ---
Anes - Initial Pre Proc Eval Procedure: Operation Date: 04/12/21 10:00 Proposed Procedures p Intertrochanteric Nail Right Hip - Toi Marquez MD Date/Time: 04/12/21 09:45 Surgeon: Samira Garcia PA-C Pre Op Diagnosis: right hip fracture Patient Data Age: 71 Gender: M Height: 1.8 m Weight: 85 kg Last Vital Signs Temp 36.9 C 04/12/21 06:00 Pulse 109 H 04/12/21 06:00 Resp 20 04/12/21 06:00 BP 121/73 04/12/21 06:00 Pulse Ox 99 04/12/21 06:00 Allergies Allergy/AdvReac Type Severity Reaction Status Date / Time No Known Allergies Allergy Unknown Verified 04/11/21 18:41 Home Medications Medication Instructions Recorded Confirmed Type atorvastatin 20 mg PO DAILY 07/11/19 04/11/21 History brimonidine 1 drp OPHTHALMIC (EYE) DAILY 07/11/19 04/11/21 History doxazosin 2 mg tablet 2 mg PO DAILY 03/06/21 04/11/21 History furosemide 20 mg tablet 60 mg PO DAILY tablet 03/06/21 04/11/21 History gabapentin 600 mg tablet 1,200 mg PO BID tablet 03/06/21 04/11/21 History glimepiride 2 mg tablet 2 mg PO DAILY tablet 03/06/21 04/11/21 History metformin 500 mg tablet,extended 1,000 mg PO BID tablet 03/06/21 04/11/21 History release 24 hr tamsulosin 0.4 mg capsule 0.8 mg PO QHS cap 03/06/21 04/11/21 History trazodone 50 mg tablet 50 mg PO QHS PRN 03/06/21 04/11/21 History B-complex with vitamin C 1 tablet PO DAILY 04/01/21 04/11/21 History ascorbic acid (vitamin C) 500 mg 500 mg PO DAILY 04/01/21 04/11/21 History tablet latanoprost 0.005 % eye drops 1 drp EACH EYE DAILY 04/01/21 04/11/21 History pseudoephedrine HCl 120 mg 120 mg PO Q12H PRN 04/01/21 04/11/21 History tablet,extended release zinc 50 mg tablet 50 mg PO DAILY 04/01/21 04/11/21 History Laboratory Tests 04/11/21 04/11/21 04/11/21 12:57 12:57 12:57 WBC 5.8 K/mm3 K/mm3 (4.5-10.0) RBC 3.55 M/mm3 L M/mm3 (4.6-6.20) Hgb 10.6 g/dL L D g/dL (14.0-18.0) Hct 32.2 % L % (42.0-52.0) MCV 90.7 fl fl (80-100) MCH 29.9 pg pg (26-34) MCHC 32.9 g/dl g/dl (32-36) RDW 14.2 % % (11.5-14.5) Plt Count 148 k/mm3 L k/mm3 (150-375) MPV 10.7 fl H fl (7.4-10.4) Immature Gran % (Auto) 0.5 % % (0-0.5) Neut % (Auto) 54.2 % % (45.5-73.1) Lymph % (Auto) 26.1 % % (18.3-44.2) Posey % (Auto) 11.8 % H % (2.6-8.5) Eos % (Auto) 6.9 % H % (0-4.4) Baso % (Auto) 0.5 % % (0.2-1.2) Lymph # (Auto) 1.51 K/mm3 K/mm3 (0.9-3.2) Posey # (Auto) 0.7 K/mm3 H K/mm3 (0.1-0.6) Eos # (Auto) 0.4 K/mm3 H K/mm3 (0-0.3) Baso # (Auto) 0.0 K/mm3 K/mm3 (0.0-0.1) Abs Immat Gran (auto) 0.03 K/mm3 K/mm3 (0.00-0.031) Absolute Neuts (auto) 3.1 K/mm3 K/mm3 (1.3-6.7) Absolute Nucleated RBC 0.0 K/mm3 K/mm3 (0.0-0.012) Nucleated RBC % 0.0 % % (0.0-0.2) Absolute Retic Percent Retic Immature Retic Fraction Retic Hgb Content PT 13.8 Seconds Seconds (11.1-14.7) INR 1.1 APTT 27.4 SECONDS SECONDS (22.3-36.8) Sodium 139 mmol/L mmol/L (137-145) Potassium 3.5 mmol/L mmol/L (3.4-5.0) Chloride 102 mmol/L mmol/L (98-107) Carbon Dioxide 26 mmol/L mmol/L (22-30) Anion Gap 11 mmol/L mmol/L (8-16) BUN 43 mg/dL H D mg/dL (9-20) Creatinine 2.00 mg/dL H mg/dL (0.7-1.3) Estim Creat Clear Calc 33 ml/min ml/min Estimated GFR 33 L (59 - ) Glucose 133 mg/dL H mg/dL (65-110) POC Capillary Glucose Hemoglobin A1c Lactic Acid Calcium 8.8 mg/dL mg/dL (8.4-10.2) Magnesium Iron TIBC % Saturation Ferritin Total Bilirubin 0.7 mg/dL
[2021-04-12] MEDS: LACTATED RINGERS 1,000 ML 30 ML IV CONT (09:53)
[2021-04-12] MEDS: TRANEXAMIC ACID 1,000MG/ISO100 1,000 MG/100 ML BAG 200 MG IVPB (09:53)
[2021-04-12 10:10] LABS: Folic Acid 12.3 ng/mL (2.76->20)
--- NOTE | 2021-04-12 10:56 | WPDHPUPDATE1 ---
History and Physical Update Update Date/Time: 04/12/21 10:56 History and Physical has been reviewed, including an updated exam of the patient. There are NO changes in the patient's condition. Risks, benefits, and alternatives have been discussed and questions answered. Patient agrees to proceed with procedure.
[2021-04-12] MEDS: ceFAZolin 2 GM/D5W 50 ML 2 GM/50 ML BAG IVPB ×2 (10:59→20:08)
--- NOTE | 2021-04-12 12:15 | P.OP_ITS ---
Procedure Note - Detailed Date of Procedure 04/12/21 Pre-op Diagnosis right intertrochanteric femur fracture Post-op Diagnosis same Procedure Performed INSERTION GAMMA CASS RIGHT HIP Surgeon Toi Marquez MD Anesthesia general Description of Procedure THE PATIENT WAS TAKEN TO THE OPERATING ROOM AND PLACED ON A FRACTURE TABLE AFTER GIVEN GENERAL ANESTHESIA. THE RIGHT LOWER EXTREMITY WAS PLACED IN A TRACTION BOOT AND USING SOME TRACTION AND INTERNAL ROTATION THE INNER TROCHANTERIC FRACTURE WAS REDUCED TO ANATOMIC POSITION. NEXT THE LEFT LOWER EXTREMITY WAS PREPPED AND DRAPED IN THE STERILE FASHION. AN INCISION WAS MADE PROXIMAL TO THE TIP OF THE GREATER TROCHANTER AND DISSECTION CONTINUED TILL THE TIP OF THE GREATER TROCHANTER WAS PALPATED. A GUIDE PIN WAS PLACED DOWN THE FEMORAL CANAL AND PAST THE FRACTURE SITE. THIS WAS CHECKED ON FLUOROSCOPY AND FOUND TO BE IN GOOD POSITION. AN INITIAL REAMER WAS USED TO REAM THE FEMORAL CANAL. A 10 BY 180 MM GAMMA CASS WAS INSERTED TILL THE CORRECT POSITION WAS IDENTIFIED ON XRAY. A GUIDE PIN WAS INSERTED THROUGH THE FEMORAL NECK AT 130 DEG ANGLE TILL IT REACHED THE TIP OF THE SUB CHONDRAL BONE SEEN ON XRAY. AFTER REAMING, LAG SCREW WAS INSERTED MEASURING 115 MM. XRAYS SHOWED IT TO BE IN GOOD POSITION. THE LAG SCREW WAS LOCKED PROXIMALLY. NEXT A DISTAL LOCKING SCREW WAS PLACED ACROSS THE CASS AND WAS IN GOOD POSITION ON XRAY. THE TRACTION WAS RELEASED. THE WOUNDS WERE WASHED. THE DEEP FASCIA WAS REPAIRED WITH 0 VICRYL SUTURE, THE SUB CUTANE OUS LAYER WITH 2-0 VICRYL, AND THE SKIN WITH MARY. THE WOUNDS WERE WASHED AND THEN STERILE DRESSING WAS APPLIED. PATIENT WAS EXTUBATED AND SENT TO RECOVERY ROOM. Estimated Blood Loss 50 Urine Output 300 Complications No immediate complications Condition stable Disposition PACU
[2021-04-12 12:36] LABS: Glucose Point of Care 120 mg/dl (65-105)
[2021-04-12] MEDS: fentaNYL CITRATE INJ (*CRX) 100 MCG/2 ML VIAL 25 MCG IV PUSH ×4 (12:42→13:38)
--- NOTE | 2021-04-12 13:12 | SUR.PHASEI ---
1220; PT INTO PACU. DR CORONA WITH PT. MONITOR SHOWS NSR/SA WITH PACs. DR CORONA OBSERVING TELEMETRY
--- NOTE | 2021-04-12 14:23 | PM.IMPN ---
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 Patient states he was getting echocardiogram because he had been having increased leg swelling over the last few weeks and had gained 25 lb. His primary care provider had increased his Lasix from 20 mg to 80 mg which she had been taking and he is now back to his normal weight and not having any leg swelling. He states he was walking into the hospital and slipped and fell landing on his right side and fractured his hip. Initial vitals showed blood pressure 139/89, heart rate 73 beats per minute, afebrile, normal oxygenation on room air. Initial labs showed normal white blood cell count, normocytic anemia with a hemoglobin of 10, hematocrit 32%, slight thrombocytopenia of 148,000. Normal coag panel. Slight creatinine elevation at 2.0, BUN 43. Potassium low normal at 3.5. Normal lactic acid. Normal LFTs. Hip x-ray showed nondisplaced linear right intertrochanteric hip fracture. Chest x-ray showed small lung volumes, no acute cardiopulmonary disease. Patient was admitted into the hospital for hip fracture with a consult to Orthopedic surgery. Patient was taken to surgery on 04/12/2021 (POD #0) to have insertion of gamma woody to the right hip by Dr. Marquez. Patient tolerated procedure well and is now sitting up in a chair and just got done working with therapy. Pain management, Discharge planning, Post-op care, DVT Prophylaxis per Dr. Marquez Continue monitoring (2) Leg swelling: Code(s): M79.89 - Other specified soft tissue disorders Status: Acute Assessment and Plan: Patient states he was coming to the hospital to get an echocardiogram because he had been having some leg swelling and a recent increase of his Lasix dosing from 20 mg to 80 mg daily. He states he is now back to his baseline weight and not having very much leg swelling at all. Will obtain echocardiogram while here in the hospital for better diagnosis Monitor fluid status during hospitalization He did have elevated kidney function from labs on 04/01/2021 at 2.3 and on arrival 2.0 which is most likely from an increase of his Lasix by his primary care provider. Creatinine today improved to 1.7 with IV fluids since he has been NPO. He currently has no leg swelling at this time and lungs are clear. Will restart his Lasix p.o. 20 mg daily. Obtain the echocardiogram and further evaluate during his hospitalization. (3) Iron deficiency anemia: Code(s): D50.9 - Iron deficiency anemia, unspecified Status: Acute Assessment and Plan: Patient has normocytic anemia with a hemoglobin of 9.5, hematocrit 28%. He is not on any chronic anticoagulation. Patient was found to be vitamin B12 deficient and is going to be replaced Patient's iron panel showed iron deficiency anemia with a% saturation of 8, low iron at 23 a ferritin 215. Will start oral ferrous sulfate b.i.d. with meals for iron deficiency anemia and he can follow-up with his primary care provider as an outpatient. Normal folic acid and TSH Continue monitoring H&H. No acute signs of bleeding. Continue Pepcid twi
[2021-04-12] MEDS: HYDROcodone/acetaminophen (*CRX) 7.5-325 MG TABLET 1 TAB PO ×2 (14:38→20:05)
[2021-04-12 16:15] LABS: Glucose Point of Care 287 mg/dl (65-105)
[2021-04-12] MEDS: SODIUM CHLORIDE 0.9% IV 1,000 ML 75 ML IV CONT (17:17)
[2021-04-12] MEDS: POTASSIUM CHLORIDE 20 MEQ TABLET 40 MEQ PO (17:18)
[2021-04-12] MEDS: CYANOCOBALAMIN INJ 1,000 MCG/ML VIAL 1000 MCG IM (17:18)
[2021-04-12] MEDS: MAGNESIUM SULFATE 3GM/D5W100ML 3 GM/100 ML BAG IVPB (17:18)
[2021-04-12] MEDS: RIVAROXABAN 10 MG TABLET PO (17:18)
[2021-04-12] MEDS: FERROUS SULFATE 324 MG TABLET PO (17:18)
[2021-04-12] MEDS: SENNA/DOCUSATE SODIUM TABLET 2 TAB PO (17:19)
[2021-04-12] MEDS: INSULIN ASPART (*BKC) 100 UNITS/ML SUB-Q (17:26)
[2021-04-12 17:45] LABS: Glucose Point of Care 258 mg/dl (65-105)
[2021-04-12] MEDS: FAMOTIDINE 20 MG TABLET PO (20:05)
[2021-04-12 20:59] LABS: Glucose Point of Care 235 mg/dl (65-105)
[2021-04-13] VITALS (8 sets, daily range): BP systolic 133–168; BP diastolic 76–86; PULSE 76–89; RESP 14–21; TEMP 36.2–37.2; O2SAT 96–100
[2021-04-13] MEDS: HYDROcodone/acetaminophen (*CRX) 7.5-325 MG TABLET 1 TAB PO ×4 (03:02→19:38)
[2021-04-13] MEDS: ceFAZolin 2 GM/D5W 50 ML 2 GM/50 ML BAG IVPB ×2 (04:06→11:16)
[2021-04-13 06:16] LABS: Basophils Percent Auto 0.1 % (0.2-1.2); Eosinophils Percent Auto 0.1 % (0-4.4); Hematocrit 28.9 % (42.0-52.0); Hemoglobin 9.4 g/dL (14.0-18.0); Immature Granulocyte Absolute 0.04 K/mm3 (0.00-0.031); Immature Granulocyte Percent A 0.5 % (0-0.5); Lymphocytes Absolute Auto 0.79 K/mm3 (0.9-3.2); Lymphocytes Percent Auto 8.9 % (18.3-44.2); Mean Corpuscular HGB Conc 32.5 g/dl (32-36); Mean Corpuscular Hemoglobin 30.1 pg (26-34); Mean Corpuscular Volume 92.6 fl (80-100); Mean Platelet Volume 10.8 fl (7.4-10.4); Monocytes Absolute Auto 0.9 K/mm3 (0.1-0.6); Monocytes Percent Auto 10.3 % (2.6-8.5); Neutrophils Absolute Auto 7.1 K/mm3 (1.3-6.7); Neutrophils Percent Auto 80.1 % (45.5-73.1); Platelet Count Result 123 k/mm3 (150-375); Red Blood Count 3.12 M/mm3 (4.6-6.20); Red Cell Distribution Width 14.2 % (11.5-14.5); White Blood Count 8.8 K/mm3 (4.5-10.0)
[2021-04-13 06:17] LABS: Anion Gap 6 mmol/L (8-16); Blood Urea Nitrogen 33 mg/dL (9-20); Calcium 8.3 mg/dL (8.4-10.2); Carbon Dioxide 25 mmol/L (22-30); Chloride 106 mmol/L (98-107); Creatine Kinase 309 U/L (55-170); Estimated CRCL calculation 46 ml/min; Estimated Glomerular Filt Rate 50; Glucose 150 mg/dL (65-110); Sodium 137 mmol/L (137-145)
[2021-04-13 07:48] LABS: Glucose Point of Care 114 mg/dl (65-105)
[2021-04-13] MEDS: FERROUS SULFATE 324 MG TABLET PO ×2 (08:18→16:51)
[2021-04-13] MEDS: FUROSEMIDE 20 MG TABLET PO (08:18)
[2021-04-13] MEDS: FAMOTIDINE 20 MG TABLET PO ×2 (08:18→21:04)
--- NOTE | 2021-04-13 08:20 | PM.IMPN ---
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 Patient states he was getting echocardiogram because he had been having increased leg swelling over the last few weeks and had gained 25 lb. His primary care provider had increased his Lasix from 20 mg to 80 mg which she had been taking and he is now back to his normal weight and not having any leg swelling. He states he was walking into the hospital and slipped and fell landing on his right side and fractured his hip. Initial vitals showed blood pressure 139/89, heart rate 73 beats per minute, afebrile, normal oxygenation on room air. Initial labs showed normal white blood cell count, normocytic anemia with a hemoglobin of 10, hematocrit 32%, slight thrombocytopenia of 148,000. Normal coag panel. Slight creatinine elevation at 2.0, BUN 43. Potassium low normal at 3.5. Normal lactic acid. Normal LFTs. Hip x-ray showed nondisplaced linear right intertrochanteric hip fracture. Chest x-ray showed small lung volumes, no acute cardiopulmonary disease. Patient was admitted into the hospital for hip fracture with a consult to Orthopedic surgery. Patient was taken to surgery on 04/12/2021 (POD #1) to have insertion of gamma woody to the right hip by Dr. Marquez. Patient tolerated procedure well and we will see how he works with therapy over the next few days. E Pain management, Discharge planning, Post-op care, DVT Prophylaxis per Dr. Marquez. Continue monitoring (2) Right-sided heart failure: Code(s): I50.810 - Right heart failure, unspecified Status: Acute Assessment and Plan: Patient states he was coming to the hospital to get an echocardiogram because he had been having some leg swelling and a recent increase of his Lasix dosing from 20 mg to 80 mg daily. He states he is now back to his baseline weight and not having very much leg swelling at all. Echocardiogram was completed showing Left ventricular chamber dimension is normal. Left ventricular systolic function is normal, estimated at 65-70%. There is no increased left ventricular wall thickness. The left ventricular diastolic function is grade I diastolic dysfunction. Right ventricular chamber dimension is mildly enlarged. There is no aortic valve stenosis. There is trace tricuspid valve regurgitation. No pulmonary hypertension, estimated pulmonary arterial systolic pressure is 30 mmHg. Right ventricular systolic function is mild to moderately reduced with relative sparing of the apex consistent with Singh sign which can be seen with pulmonary embolism and/or RV infarction. Clinical correlation advised I ordered a D dimer which was negative for PE so no further work up is needed Troponin ordered and it was elevated 0.263, will repeat 3 hour and see if trending up or down. Called Cardiology, Dr. Wheeler who will evaluate him in consultation. Monitor fluid status during hospitalization He did have elevated kidney function from labs on 04/01/2021 at 2.3 and on arrival 2.0 which is most likely from an increase of his Lasix by his primary care provider. Creatinine today improved to 1.4 with IV fluids. He currently has no leg swelling at thi
[2021-04-13] MEDS: CYANOCOBALAMIN INJ 1,000 MCG/ML VIAL 1000 MCG IM (08:25)
[2021-04-13] MEDS: ATORVASTATIN 20 MG TABLET PO (09:24)
[2021-04-13] MEDS: BRIMONIDINE TARTRATE 0.2% OP SOLN 5 ML BTL 1 DROP EACH EYE (09:24)
[2021-04-13] MEDS: ZINC SULFATE 220 MG CAPSULE PO (09:24)
[2021-04-13] MEDS: DOXAZOSIN MESYLATE 2 MG TABLET PO (09:24)
[2021-04-13] MEDS: VITAMIN B COMPLEX/VIT C CAPSULE 1 EACH PO (09:25)
[2021-04-13] MEDS: ASCORBIC ACID 500 MG TABLET PO (09:25)
[2021-04-13] MEDS: GABAPENTIN 400 MG CAPSULE 1200 MG PO ×2 (09:25→16:51)
[2021-04-13 09:31] LABS: D Dimer < 0.27 ug/mL (<0.48)
[2021-04-13 09:39] LABS: Troponin I 0.263 ng/mL (0.000-0.034)
[2021-04-13 11:50] LABS: Glucose Point of Care 151 mg/dl (65-105)
[2021-04-13 12:15] LABS: Troponin I 0.255 ng/mL (0.000-0.034)
--- NOTE | 2021-04-13 14:16 | PM.CNCAR ---
Assessment and Plan Assessment and plan (1) Right-sided heart failure: Code(s): I50.810 - Right heart failure, unspecified Status: Acute Assessment and Plan: Patient has what sounds to be right-sided heart failure. He does have evidence of RV enlargement and hypokinesis noted on echocardiogram but with normal left heart function. Cannot exclude portal hypertension or even liver disease. Echocardiogram does not show any LV involvement and isolated artery infarction would be rare. D-dimer was negative which nearly excludes pulmonary embolism. Will check an apnea link for evidence of sleep apnea which can be an etiology of RV failure also.. He states that he used to weigh 50 lb more than what he did even prior to his weight loss. He used to snore heavily he states. If initial workup is benign, will consider stress testing and depending on those results consider advanced outpatient imaging evaluating for things such as arrhythmogenic right ventricular dysplasia. (2) Hypertension associated with diabetes: Code(s): E11.59 - Type 2 diabetes mellitus with other circulatory complications; I15.2 - Hypertension secondary to endocrine disorders Status: Acute Assessment and Plan: Elevated. Will add low-dose metoprolol 12.5 mg p.o. b.i.d. (3) History of alcohol abuse: Code(s): F10.11 - Alcohol abuse, in remission Status: Acute Assessment and Plan: To evaluate his liver, will order a right upper quadrant ultrasound to evaluate for any evidence of cirrhosis given his ascites recently and lower extremity edema (4) Elevated troponin: Code(s): R77.8 - Other specified abnormalities of plasma proteins Status: Acute Assessment and Plan: Troponins are showing no significant rise or fall. May be related to underlying renal disease plus-minus fall/injury. Will repeat EKG now. (5) Hyperlipidemia associated with type 2 diabetes mellitus: Code(s): E11.69 - Type 2 diabetes mellitus with other specified complication; E78.5 - Hyperlipidemia, unspecified Status: Acute Assessment and Plan: Continue statin (6) Closed fracture of right hip: Qualifiers: Encounter type: initial encounter Qualified Code(s): S72.001A - Fracture of unspecified part of neck of right femur, initial encounter for closed fracture Code(s): S72.001A - Fracture of unspecified part of neck of right femur, initial encounter for closed fracture Status: Acute Assessment and Plan: Status post ORIF (7) Hypomagnesemia: Code(s): E83.42 - Hypomagnesemia Status: Acute Assessment and Plan: Will give an additional 2 g of IV magnesium today. History of Present Illness History of Present Illness Consult date/time: 04/13/21 14:16 Requesting physician: Samira Garcia PA-C Consult reason: Other (Abnormal echo) Reason For Visit: right hip fracture Narrative: Date of service 04/13/2021 Reason consultation abnormal echocardiogram, elevated troponins Requesting provider: Samira Garcia History: Patient is a 71-year-old male who sees Dr. Rodriguez her med as an outpatient. A few months ago he started developed significant abdominal distention and lower extremity edema. He was started on low-dose furosemide without much benefit. His furosemide was increased to 80 mg p.o. daily which did help his fluid status and he lost about 25 lb. He was coming into the hospital get some lab work done whenever he slipped and fell on ice. He did not hit his head or lose consciousness. He had right hip pain in a enter trochanteric hip fracture a is now status post ORIF. He does have chronic renal failure. Echocardiogram was ordered because of his history of edema. Echocardiogram with results as below showing some RV enlargement,? Geiger sign. D-dimer though is negative. Troponins were minimally elevated but did no significant rise or fall. Patient is sitting comfortably in
--- NOTE | 2021-04-13 14:37 | PM.PNORT ---
Progress Note: A&P Additional Plan POD 1 DOING WELL. HE WILL REQUIRE SNF ONCE OK TO BE DISCHARGED BY MEDICINE. HE WILL F/U IN 6 WEEKS AFTER DISCHARGE. Subjective Subjective Date/Time Seen: 04/13/21 14:37 POD 1 DOING WELL. 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 NV INTACT NEG HOMANS SIGN Objective Data Vital Signs Vital Signs: Vital Signs - 24 hr 04/12/21 14:57 04/12/21 15:00 04/12/21 16:00 Temperature 37.0 C 36.6 C Pulse Rate 97 100 Respiratory Rate 22 H 20 20 Blood Pressure 143/84 H 132/77 Pulse Oximetry 92 99 100 04/12/21 19:49 04/12/21 20:53 04/12/21 23:49 Temperature 37.1 C 36.1 C L Pulse Rate 94 89 85 Respiratory Rate 18 21 H 21 H Blood Pressure 135/73 150/86 H Pulse Oximetry 96 96 100 04/13/21 03:49 04/13/21 07:49 04/13/21 11:49 Temperature 36.2 C L 37.1 C 37.2 C Pulse Rate 82 89 89 Respiratory Rate 21 H 17 18 Blood Pressure 151/82 H 168/77 H 146/84 H Pulse Oximetry 100 96 100 04/13/21 12:00 Temperature Pulse Rate 85 Respiratory Rate Blood Pressure Pulse Oximetry Intake/Output Intake/Output: Intake & Output 04/10/21 04/11/21 04/12/21 04/13/21 23:59 23:59 23:59 23:59 Intake Total 1034 1025 Output Total 1200 1400 Balance -166 -375 Meds/Results Medications: Active Medications Generic Name Dose Route Start Last Admin Trade Name Freq PRN Reason Stop Dose Admin Acetaminophen 650 mg 04/12/21 14:04 Acetaminophen 325 Mg Tablet PO Q6H PRN Mild Pain (1-3) or Fever Hydrocodone Bitart/Acetaminophen 1 tab 04/12/21 14:04 04/13/21 08:26 Hydrocodone/Acetaminophen (*Crx) 7.5-325 Mg Tablet PO 1 tab Q3H PRN Administration Pain Rated 4-6 Ascorbic Acid 500 mg 04/13/21 09:00 04/13/21 09:25 Ascorbic Acid 500 Mg Tablet PO 500 mg DAILY ROCIO Administration Atorvastatin Calcium 20 mg 04/13/21 09:00 04/13/21 09:24 Atorvastatin 20 Mg Tablet PO 20 mg DAILY ROCIO Administration Brimonidine Tartrate 1 drop 04/13/21 09:00 04/13/21 09:24 Brimonidine Tartrate 0.2% Op Soln 5 Ml Btl EACH EYE 1 drop DAILY ROCIO Administration Cyanocobalamin 1,000 mcg 04/12/21 15:50 04/13/21 08:25 Cyanocobalamin Inj 1,000 Mcg/Ml Vial IM 04/14/21 09:01 1,000 mcg DAILY ROCIO Administration Cyanocobalamin 1,000 mcg 04/15/21 09:00 Cyanocobalamin 1,000 Mcg Tablet PO QAM ROCIO Dextrose 12.5 gm 04/12/21 17:13 Dextrose 50% 25 Gm/50 Ml Syringe IV PUSH PRN PRN Hypoglycemia Protocol Diazepam 5 mg 04/12/21 14:04 Diazepam (*Crx) 5 Mg Tablet PO Q8H PRN Muscle Spasm Doxazosin Mesylate 2 mg 04/13/21 09:00 04/13/21 09:24 Doxazosin Mesylate 2 Mg Tablet PO 2 mg DAILY ROCIO Administration Famotidine 20 mg 04/12/21 21:00 04/13/21 08:18 Famotidine 20 Mg Tablet PO 20 mg Q12HR ROCIO Administration Ferrous Sulfate 324 mg 04/12/21 17:00 04/13/21 08:18 Ferrous Sulfate 324 Mg Tablet PO 324 mg BIDWM ROCIO Administration Furosemide 20 mg 04/13/21 09:00 04/13/21 08:18 Furosemide 20 Mg Tablet PO 20 mg DAILY ROCIO Administration Gabapentin 1,200 mg 04/13/21 09:00 04/13/21 09:25 Gabapentin 400 Mg Capsule PO 1,200 mg BID ROCIO Administration Glucagon 1 mg 04/12/21 17:13 Glucagon For Inj 1 Mg Vial IM PRN PRN Hypoglycemia Protocol Glucose 15 gm 04/12/21 17:13 Glucose Oral Gel 15 Gm Of Glucse In 37.5 Gm Tube PO PRN PRN Hypoglycemia Protocol Hydroxyzine Pamoate 50 mg 04/12/21 14:04 Hydroxyzine Pamoate 25 Mg Capsule PO Q4H PRN Itching Dextrose 1,000 mls @ 100 mls/hr 04/12/21 17:13 Dextrose 5% 1,000 Ml IVPB PRN PRN Hypoglycemia Protocol Insulin Aspart 2 - 5 units 04/12/21 17:00 04/13/21 12:23 Insulin Aspart (*Bkc) 100 Units/Ml SUB-Q Not Given TIDWM ROCIO Protocol Latanoprost 1 drop 04/13/21 21:00 Latanoprost 0.005% Op Soln 2.5 Ml Btl EACH EYE HS SC
--- NOTE | 2021-04-13 14:38 | ECG_ITS ---
Measurements Intervals [place] Rate: 83 P: 80 VA: 166 QRS: 3 QRSD: 153 T: -28 QT: 384 QTc: 452 Interpretive Statements SINUS RHYTHM RIGHT BUNDLE BRANCH BLOCK CONSIDER INFERIOR INFARCT, AGE INDETERMINATE ABNORMAL ECG Electronically Signed On 04-13-2021 18:50:00 [employer]INO CHANGE ATTENDANT by Abrahan Felipe D.O.
[2021-04-13] MEDS: MAGNESIUM SULF 2 GM/WATER 50ML 2 GM/50 ML BAG IVPB (15:03)
[2021-04-13 16:29] LABS: Glucose Point of Care 148 mg/dl (65-105)
[2021-04-13] MEDS: RIVAROXABAN 10 MG TABLET PO (16:52)
[2021-04-13] MEDS: TAMSULOSIN HCL 0.4 MG CAPSULE 0.8 MG PO (21:04)
[2021-04-13] MEDS: LATANOPROST 0.005% OP SOLN 2.5 ML BTL 1 DROP EACH EYE (21:04)
[2021-04-13] MEDS: METOPROLOL TARTRATE 12.5 MG TABLET PO (21:04)
[2021-04-13 21:16] LABS: Glucose Point of Care 129 mg/dl (65-105)
[2021-04-14] VITALS (10 sets, daily range): BP systolic 115–136; BP diastolic 70–75; PULSE 68–88; RESP 18–21; TEMP 36.1–37; O2SAT 96–100
--- NOTE | 2021-04-14 00:04 | PCRCNOTE ---
Patient refused apnea link stating if his results came back positive for sleep apnea, that he would not comply with wearing a cpap. Therefore, he stated there isn't a reason to even find out.
[2021-04-14] MEDS: HYDROcodone/acetaminophen (*CRX) 7.5-325 MG TABLET 1 TAB PO ×5 (01:13→20:55)
[2021-04-14 05:58] LABS: Basophils Percent Auto 0.4 % (0.2-1.2); Eosinophils Absolute Auto 0.6 K/mm3 (0-0.3); Eosinophils Percent Auto 7.9 % (0-4.4); Hematocrit 30.5 % (42.0-52.0); Hemoglobin 9.8 g/dL (14.0-18.0); Immature Granulocyte Absolute 0.03 K/mm3 (0.00-0.031); Immature Granulocyte Percent A 0.4 % (0-0.5); Lymphocytes Absolute Auto 1.32 K/mm3 (0.9-3.2); Mean Corpuscular HGB Conc 32.1 g/dl (32-36); Mean Corpuscular Hemoglobin 30.1 pg (26-34); Mean Corpuscular Volume 93.6 fl (80-100); Mean Platelet Volume 10.6 fl (7.4-10.4); Monocytes Absolute Auto 0.8 K/mm3 (0.1-0.6); Monocytes Percent Auto 11.5 % (2.6-8.5); Neutrophils Absolute Auto 4.5 K/mm3 (1.3-6.7); Neutrophils Percent Auto 61.8 % (45.5-73.1); Platelet Count Result 139 k/mm3 (150-375); Red Blood Count 3.26 M/mm3 (4.6-6.20); Red Cell Distribution Width 14.2 % (11.5-14.5); White Blood Count 7.3 K/mm3 (4.5-10.0)
[2021-04-14 06:12] LABS: Anion Gap 6 mmol/L (8-16); Blood Urea Nitrogen 27 mg/dL (9-20); Calcium 8.7 mg/dL (8.4-10.2); Carbon Dioxide 28 mmol/L (22-30); Chloride 105 mmol/L (98-107); Estimated CRCL calculation 40 ml/min; Estimated Glomerular Filt Rate 43; Glucose 122 mg/dL (65-110); Potassium 3.6 mmol/L (3.4-5.0); Sodium 139 mmol/L (137-145)
[2021-04-14 07:50] LABS: Glucose Point of Care 113 mg/dl (65-105)
[2021-04-14] MEDS: FERROUS SULFATE 324 MG TABLET PO ×2 (08:15→17:49)
[2021-04-14] MEDS: FAMOTIDINE 20 MG TABLET PO ×2 (08:16→20:49)
[2021-04-14] MEDS: DOXAZOSIN MESYLATE 2 MG TABLET PO (08:16)
[2021-04-14] MEDS: FUROSEMIDE 20 MG TABLET PO (08:16)
[2021-04-14] MEDS: ATORVASTATIN 20 MG TABLET PO (08:16)
[2021-04-14] MEDS: GABAPENTIN 400 MG CAPSULE 1200 MG PO ×2 (08:16→17:49)
[2021-04-14] MEDS: BRIMONIDINE TARTRATE 0.2% OP SOLN 5 ML BTL 1 DROP EACH EYE (08:16)
[2021-04-14] MEDS: ASCORBIC ACID 500 MG TABLET PO (08:16)
[2021-04-14] MEDS: METOPROLOL TARTRATE 12.5 MG TABLET PO ×2 (08:16→20:49)
[2021-04-14] MEDS: ZINC SULFATE 220 MG CAPSULE PO (08:17)
[2021-04-14] MEDS: VITAMIN B COMPLEX/VIT C CAPSULE 1 EACH PO (08:17)
[2021-04-14] MEDS: CYANOCOBALAMIN INJ 1,000 MCG/ML VIAL 1000 MCG IM (08:18)
--- NOTE | 2021-04-14 09:27 | PM.PNCARD ---
Progress Note: A&P Assessment and Plan (1) Right-sided heart failure: Code(s): I50.810 - Right heart failure, unspecified Status: Acute Assessment and Plan: Patient has what sounds to be right-sided heart failure. He does have evidence of RV enlargement and hypokinesis noted on echocardiogram but with normal left heart function. Echocardiogram does not show any LV involvement and isolated right heart infarction would be rare. D-dimer was negative which nearly excludes pulmonary embolism. He refused ApneaLink last night. Will retry tonight to see he has sleep apnea as a cause of RV failure also.. He states that he used to weigh 50 lb more than what he did even prior to his weight loss. He used to snore heavily he states. Will keep NPO for Lexiscan stress test tomorrow. Depending on those results consider advanced outpatient imaging evaluating for things such as arrhythmogenic right ventricular dysplasia. (2) Hypertension associated with diabetes: Code(s): E11.59 - Type 2 diabetes mellitus with other circulatory complications; I15.2 - Hypertension secondary to endocrine disorders Status: Acute Assessment and Plan: Tolerating metoprolol (3) History of alcohol abuse: Code(s): F10.11 - Alcohol abuse, in remission Status: Acute Assessment and Plan: Right upper quadrant ultrasound unremarkable (4) Elevated troponin: Code(s): R77.8 - Other specified abnormalities of plasma proteins Status: Acute Assessment and Plan: Troponins are showing no significant rise or fall. May be related to underlying renal disease plus-minus fall/injury. Will repeat EKG now. (5) Hyperlipidemia associated with type 2 diabetes mellitus: Code(s): E11.69 - Type 2 diabetes mellitus with other specified complication; E78.5 - Hyperlipidemia, unspecified Status: Acute Assessment and Plan: Continue statin (6) Closed fracture of right hip: Qualifiers: Encounter type: initial encounter Qualified Code(s): S72.001A - Fracture of unspecified part of neck of right femur, initial encounter for closed fracture Code(s): S72.001A - Fracture of unspecified part of neck of right femur, initial encounter for closed fracture Status: Acute Assessment and Plan: Status post ORIF (7) Hypomagnesemia: Code(s): E83.42 - Hypomagnesemia Status: Acute Assessment and Plan: Replaced Subjective Date/time seen: 04/14/21 09:27 Interval history: 71-year-old following a fall status post or AF right hip Date of service 04/14/2021 The patient is feeling well today except for hip pain.. He denies any chest pain, SOB, orthopnea. No edema Review of Systems Review of Systems: All systems reviewed & are unremarkable except as noted in HPI and below Constitutional: Constitutional: Denies excessive sweating, Denies headache(s) and Denies weakness Eyes: Eyes: Denies blurry vision ENT: Reports Normal hearing present, Denies headache(s) and Denies neck pain Cardiovascular: Cardiovascular: Denies chest pain, Reports leg edema and Denies dyspnea Respiratory: Respiratory: Denies dyspnea Gastrointestinal: Gastrointestinal: Reports bloating Genitourinary: Genitourinary: Denies dysuria Musculoskeletal: Musculoskeletal: Reports arthralgias and Denies neck pain Integumentary/Breasts: Skin/Breast: Denies dry skin Neurologic: Reports Normal hearing present, Denies headache(s) and Denies weakness Psychiatric: Psychiatric: Denies anxiety Endocrine: Endocrine: Denies excessive sweating Hematologic/Lymphatic: Hematologic/Lymphatic: Denies easy bleeding Allergic/Immunologic: Allergic/Immunologic: Denies GI upset with certain foods Exam Narrative: Awake alert oriented. Appears to be no acute distress. Appears stated age Const: General: comfortable and no acute distress HENMT: General nose exam: Normal nares present Eyes: Sclera: scl
[2021-04-14] MEDS: ONDANSETRON INJ 4 MG/2 ML VIAL IV PUSH (10:51)
[2021-04-14 12:06] LABS: Glucose Point of Care 126 mg/dl (65-105)
--- NOTE | 2021-04-14 13:17 | PM.PNORT ---
Progress Note: A&P Additional Plan POD 2 DOING WELL. HE WILL MOST LIKELY REQUIRE SNF. HE IS STABLE AND CAN NBE DISCHARGED PER MEDICINE. HE WILL F/U IN 6 WEEKS Time Spent With Patient Time with patient: 15 - 25 minutes Subjective Subjective Date/Time Seen: 04/14/21 13:17POD 2 DOING WELL. SLOW PROGRESS WITH PT. NO CALF PAIN Exam Extrem: Other: VSS AFEBRIL DRESSING DRY [place] INTACT NEG HOMANS SIGN, CALF SOFT Objective Data Vital Signs Vital Signs: Vital Signs - 24 hr 04/13/21 15:49 04/13/21 16:00 04/13/21 20:00 Temperature 36.2 C L 36.3 C L Pulse Rate 81 80 76 Respiratory Rate 14 20 Blood Pressure 154/86 H 133/76 Pulse Oximetry 99 98 04/13/21 21:04 04/14/21 00:00 04/14/21 00:26 Temperature 36.4 C L Pulse Rate 80 73 88 Respiratory Rate 21 H Blood Pressure 136/75 Pulse Oximetry 100 04/14/21 04:00 04/14/21 06:00 04/14/21 08:00 Temperature 36.1 C L Pulse Rate 68 73 83 Respiratory Rate 20 Blood Pressure 115/75 Pulse Oximetry 98 04/14/21 08:16 04/14/21 12:00 Temperature Pulse Rate 78 78 Respiratory Rate Blood Pressure Pulse Oximetry Intake/Output Intake/Output: Intake & Output 04/11/21 04/12/21 04/13/21 04/14/21 23:59 23:59 23:59 23:59 Intake Total 1034 1795 Output Total 1200 2300 1300 Balance -166 -505 -1300 Meds/Results Medications: Active Medications Generic Name Dose Route Start Last Admin Trade Name Freq PRN Reason Stop Dose Admin Acetaminophen 650 mg 04/12/21 14:04 Acetaminophen 325 Mg Tablet PO Q6H PRN Mild Pain (1-3) or Fever Hydrocodone Bitart/Acetaminophen 1 tab 04/12/21 14:04 04/14/21 08:17 Hydrocodone/Acetaminophen (*Crx) 7.5-325 Mg Tablet PO 1 tab Q3H PRN Administration Pain Rated 4-6 Ascorbic Acid 500 mg 04/13/21 09:00 04/14/21 08:16 Ascorbic Acid 500 Mg Tablet PO 500 mg DAILY ROCIO Administration Atorvastatin Calcium 20 mg 04/13/21 09:00 04/14/21 08:16 Atorvastatin 20 Mg Tablet PO 20 mg DAILY ROCIO Administration Brimonidine Tartrate 1 drop 04/13/21 09:00 04/14/21 08:16 Brimonidine Tartrate 0.2% Op Soln 5 Ml Btl EACH EYE 1 drop DAILY ROCIO Administration Cyanocobalamin 1,000 mcg 04/15/21 09:00 Cyanocobalamin 1,000 Mcg Tablet PO QAM ROCIO Dextrose 12.5 gm 04/12/21 17:13 Dextrose 50% 25 Gm/50 Ml Syringe IV PUSH PRN PRN Hypoglycemia Protocol Diazepam 5 mg 04/12/21 14:04 Diazepam (*Crx) 5 Mg Tablet PO Q8H PRN Muscle Spasm Doxazosin Mesylate 2 mg 04/13/21 09:00 04/14/21 08:16 Doxazosin Mesylate 2 Mg Tablet PO 2 mg DAILY ROCIO Administration Famotidine 20 mg 04/12/21 21:00 04/14/21 08:16 Famotidine 20 Mg Tablet PO 20 mg Q12HR ROCIO Administration Ferrous Sulfate 324 mg 04/12/21 17:00 04/14/21 08:15 Ferrous Sulfate 324 Mg Tablet PO 324 mg BIDWM ROCIO Administration Furosemide 20 mg 04/13/21 09:00 04/14/21 08:16 Furosemide 20 Mg Tablet PO 20 mg DAILY ROCIO Administration Gabapentin 1,200 mg 04/13/21 09:00 04/14/21 08:16 Gabapentin 400 Mg Capsule PO 1,200 mg BID ROCIO Administration Glucagon 1 mg 04/12/21 17:13 Glucagon For Inj 1 Mg Vial IM PRN PRN Hypoglycemia Protocol Glucose 15 gm 04/12/21 17:13 Glucose Oral Gel 15 Gm Of Glucse In 37.5 Gm Tube PO PRN PRN Hypoglycemia Protocol Hydroxyzine Pamoate 50 mg 04/12/21 14:04 Hydroxyzine Pamoate 25 Mg Capsule PO Q4H PRN Itching Dextrose 1,000 mls @ 100 mls/hr 04/12/21 17:13 Dextrose 5% 1,000 Ml IVPB PRN PRN Hypoglycemia Protocol Insulin Aspart 2 - 5 units 04/12/21 17:00 04/14/21 12:10 Insulin Aspart (*Bkc) 100 Units/Ml SUB-Q Not Given TIDWM ROCIO Protocol Latanoprost 1 drop 04/13/21 21:00 04/13/21 21:04 Latanoprost 0.005% Op Soln 2.5 Ml Btl EACH EYE 1 drop HS ROCIO Administration Magnesium Hydroxide 30 ml 04/12/21 14:04 Cris
--- NOTE | 2021-04-14 13:23 | PM.IMPN ---
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 Patient states he was getting echocardiogram because he had been having increased leg swelling over the last few weeks and had gained 25 lb. His primary care provider had increased his Lasix from 20 mg to 80 mg which she had been taking and he is now back to his normal weight and not having any leg swelling. He states he was walking into the hospital and slipped and fell landing on his right side and fractured his hip. Initial vitals showed blood pressure 139/89, heart rate 73 beats per minute, afebrile, normal oxygenation on room air. Initial labs showed normal white blood cell count, normocytic anemia with a hemoglobin of 10, hematocrit 32%, slight thrombocytopenia of 148,000. Normal coag panel. Slight creatinine elevation at 2.0, BUN 43. Potassium low normal at 3.5. Normal lactic acid. Normal LFTs. Hip x-ray showed nondisplaced linear right intertrochanteric hip fracture. Chest x-ray showed small lung volumes, no acute cardiopulmonary disease. Patient was admitted into the hospital for hip fracture with a consult to Orthopedic surgery. Patient was taken to surgery on 04/12/2021 (POD #2) to have insertion of gamma woody to the right hip by Dr. Marquez. Patient tolerated procedure well and we will see how he works with therapy over the next few days. Pain management, Discharge planning, Post-op care, DVT Prophylaxis per Dr. Marquez. Continue monitoring (2) Right-sided heart failure: Code(s): I50.810 - Right heart failure, unspecified Status: Acute Assessment and Plan: Patient states he was coming to the hospital to get an echocardiogram because he had been having some leg swelling and a recent increase of his Lasix dosing from 20 mg to 80 mg daily. He states he is now back to his baseline weight and not having very much leg swelling at all. Echocardiogram was completed showing Left ventricular chamber dimension is normal. Left ventricular systolic function is normal, estimated at 65-70%. There is no increased left ventricular wall thickness. The left ventricular diastolic function is grade I diastolic dysfunction. Right ventricular chamber dimension is mildly enlarged. There is no aortic valve stenosis. There is trace tricuspid valve regurgitation. No pulmonary hypertension, estimated pulmonary arterial systolic pressure is 30 mmHg. Right ventricular systolic function is mild to moderately reduced with relative sparing of the apex consistent with Singh sign which can be seen with pulmonary embolism and/or RV infarction. Clinical correlation advised I ordered a D dimer which was negative for PE so no further work up is needed Troponin ordered and it was elevated 0.263, and trending down at 0.25. Called Cardiology, Dr. Wheeler who evaluated the patient and feels his fluid accumulation could have been due to right-sided heart failure verses liver cirrhosis/pulmonary hypertension given his history of alcohol abuse (no longer drinking alcohol) versus SHEFALI. Cardiology wanted to complete further workup with an apnea link which the patient says he will do tonight Right upper quadrant ultrasoun
[2021-04-14 17:35] LABS: Glucose Point of Care 187 mg/dl (65-105)
[2021-04-14] MEDS: RIVAROXABAN 10 MG TABLET PO (17:50)
[2021-04-14] MEDS: TAMSULOSIN HCL 0.4 MG CAPSULE 0.8 MG PO (20:49)
[2021-04-14] MEDS: LATANOPROST 0.005% OP SOLN 2.5 ML BTL 1 DROP EACH EYE (20:49)
[2021-04-14 21:33] LABS: Glucose Point of Care 130 mg/dl (65-105)
[2021-04-15] VITALS (10 sets, daily range): BP systolic 112–128; BP diastolic 67–85; PULSE 68–81; RESP 16–20; TEMP 36.3–36.8; O2SAT 96–99
[2021-04-15 05:51] LABS: Hematocrit 28.3 % (42.0-52.0); Hemoglobin 9.2 g/dL (14.0-18.0); Mean Corpuscular HGB Conc 32.5 g/dl (32-36); Mean Corpuscular Hemoglobin 29.3 pg (26-34); Mean Corpuscular Volume 90.1 fl (80-100); Mean Platelet Volume 10.6 fl (7.4-10.4); Platelet Count Result 148 k/mm3 (150-375); Red Blood Count 3.14 M/mm3 (4.6-6.20); Red Cell Distribution Width 14.1 % (11.5-14.5); White Blood Count 7.1 K/mm3 (4.5-10.0)
[2021-04-15 06:02] LABS: Anion Gap 8 mmol/L (8-16); Blood Urea Nitrogen 29 mg/dL (9-20); Calcium 8.5 mg/dL (8.4-10.2); Carbon Dioxide 26 mmol/L (22-30); Chloride 105 mmol/L (98-107); Estimated CRCL calculation 40 ml/min; Estimated Glomerular Filt Rate 43; Glucose 115 mg/dL (65-110); Potassium 3.5 mmol/L (3.4-5.0); Sodium 139 mmol/L (137-145)
[2021-04-15 08:00] LABS: Glucose Point of Care 118 mg/dl (65-105)
[2021-04-15] MEDS: GABAPENTIN 400 MG CAPSULE 1200 MG PO ×2 (08:02→16:30)
[2021-04-15] MEDS: POTASSIUM CHLORIDE 20 MEQ TABLET 40 MEQ PO (08:03)
[2021-04-15] MEDS: DOXAZOSIN MESYLATE 2 MG TABLET PO (08:03)
[2021-04-15] MEDS: FUROSEMIDE 20 MG TABLET PO (08:03)
[2021-04-15] MEDS: METOPROLOL TARTRATE 12.5 MG TABLET PO ×2 (08:03→20:16)
[2021-04-15] MEDS: VITAMIN B COMPLEX/VIT C CAPSULE 1 EACH PO (08:04)
[2021-04-15] MEDS: ATORVASTATIN 20 MG TABLET PO (08:04)
[2021-04-15] MEDS: CYANOCOBALAMIN 1,000 MCG TABLET 1000 MCG PO (08:04)
[2021-04-15] MEDS: FERROUS SULFATE 324 MG TABLET PO ×2 (08:04→16:30)
[2021-04-15] MEDS: ASCORBIC ACID 500 MG TABLET PO (08:04)
[2021-04-15] MEDS: FAMOTIDINE 20 MG TABLET PO ×2 (08:04→20:16)
[2021-04-15] MEDS: BRIMONIDINE TARTRATE 0.2% OP SOLN 5 ML BTL 1 DROP EACH EYE (08:05)
[2021-04-15] MEDS: HYDROcodone/acetaminophen (*CRX) 7.5-325 MG TABLET 1 TAB PO ×3 (08:14→17:38)
[2021-04-15] MEDS: polyethylene glycoL 3350 17 GM POWD.PACK PO (08:15)
[2021-04-15] MEDS: ZINC SULFATE 220 MG CAPSULE PO (08:51)
[2021-04-15] MEDS: SENNA/DOCUSATE SODIUM TABLET 2 TAB PO ×2 (08:51→16:30)
--- NOTE | 2021-04-15 09:38 | EST_ITS ---
Patient Info Name: Santi Torrez Age: 71 years : 1950 Gender: Male Ht: 61 in Wt: 187 lbs BSA: 1.95 m2 HR: 74 bpm BP: 109 / 86 mmHg Heart Rhythm: Sinus Rhythm Exam Date: 04/15/2021 10:55 AM Exam Location: [facility] Stress Patient Status: Inpatient Admit Date: 04/11/2021 Staff Ordering Physician: Elian Wheeler MD Attending Provider: Samira Garcia PA-C Exercise Technologist: Genie Calvo CT Nurse: MILI KURTZ Exam Type: CA stress herlinda w NM Study Info Indications R94.31 - Abnormal electrocardiogram ECG EKG Summary 1. Normal sinus rhythm. 2. Occasional PACs which conduct with right bundle branch block aberrancy. 3. No ST segment abnormalities noted following Lexiscan injection. 4. Clinically and electrocardiographically unremarkable Lexiscan stress test. 5. Myocardial perfusion imaging study to be reported by the Radiology Department. Protocol: Lexiscan Stress ECG Details Stage: REST Duration (min): 1 min : 22 sec HR (bpm): 71 SBP (mmHg): 109 DBP (mmHg): 86 Stage: REST Duration (min): 8 min : 49 sec HR (bpm): 71 SBP (mmHg): 109 DBP (mmHg): 86 Stage: STAGE 1 Duration (min): 0 min : 59 sec HR (bpm): 72 SBP (mmHg): 104 DBP (mmHg): 64 Stage: RECOVERY Duration (min): 1 min : 0 sec HR (bpm): 82 SBP (mmHg): 104 DBP (mmHg): 64 Stage: RECOVERY Duration (min): 2 min : 0 sec HR (bpm): 85 SBP (mmHg): 104 DBP (mmHg): 64 Stage: RECOVERY Duration (min): 3 min : 0 sec HR (bpm): 86 SBP (mmHg): 86 DBP (mmHg): 43 Stage: RECOVERY Duration (min): 4 min : 0 sec HR (bpm): 86 SBP (mmHg): 86 DBP (mmHg): 43 Stage: RECOVERY Duration (min): 5 min : 0 sec HR (bpm): 89 SBP (mmHg): 86 DBP (mmHg): 43 Stage: RECOVERY Duration (min): 5 min : 8 sec HR (bpm): 88 SBP (mmHg): 86 DBP (mmHg): 43 Rest HR: 71 bpm Peak HR: 89 bpm Rest Sys BP: 109 mmHg Peak Sys BP: 104 mmHg Max Pred HR: 148 bpm % Max Pred HR: 60 % Target HR: 126 bpm Max RPP: 9,256 bpm*mmHg Total Time: 1 min : 0 sec Rest Clifton BP: 86 mmHg Peak [place] BP: 64 mmHg Total Dose: 0.4 mg Resting ECG Normal sinus rhythm. Occasional PACs which conduct with right bundle branch block aberrancy. Stress ECG No ST segment abnormalities noted following Lexiscan injection. Report Signatures
--- NOTE | 2021-04-15 09:51 | PM.IMPN ---
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 Patient states he was getting echocardiogram because he had been having increased leg swelling over the last few weeks and had gained 25 lb. His primary care provider had increased his Lasix from 20 mg to 80 mg which she had been taking and he is now back to his normal weight and not having any leg swelling. He states he was walking into the hospital and slipped and fell landing on his right side and fractured his hip. Initial vitals showed blood pressure 139/89, heart rate 73 beats per minute, afebrile, normal oxygenation on room air. Initial labs showed normal white blood cell count, normocytic anemia with a hemoglobin of 10, hematocrit 32%, slight thrombocytopenia of 148,000. Normal coag panel. Slight creatinine elevation at 2.0, BUN 43. Potassium low normal at 3.5. Normal lactic acid. Normal LFTs. Hip x-ray showed nondisplaced linear right intertrochanteric hip fracture. Chest x-ray showed small lung volumes, no acute cardiopulmonary disease. Patient was admitted into the hospital for hip fracture with a consult to Orthopedic surgery. Patient was taken to surgery on 04/12/2021 (POD #3) to have insertion of gamma woody to the right hip by Dr. Marquez. Pain management, Discharge planning, Post-op care, DVT Prophylaxis per Dr. Marquez. Patient will be going to an SNF facility after discharge He still undergoing a cardiology evaluation at this time Continue monitoring (2) Right-sided heart failure: Code(s): I50.810 - Right heart failure, unspecified Status: Acute Assessment and Plan: Patient states he was coming to the hospital to get an echocardiogram because he had been having some leg swelling and a recent increase of his Lasix dosing from 20 mg to 80 mg daily. He states he is now back to his baseline weight and not having very much leg swelling at all. Echocardiogram was completed showing Left ventricular chamber dimension is normal. Left ventricular systolic function is normal, estimated at 65-70%. There is no increased left ventricular wall thickness. The left ventricular diastolic function is grade I diastolic dysfunction. Right ventricular chamber dimension is mildly enlarged. There is no aortic valve stenosis. There is trace tricuspid valve regurgitation. No pulmonary hypertension, estimated pulmonary arterial systolic pressure is 30 mmHg. Right ventricular systolic function is mild to moderately reduced with relative sparing of the apex consistent with Singh sign which can be seen with pulmonary embolism and/or RV infarction. Clinical correlation advised I ordered a D dimer which was negative for PE so no further work up is needed Troponin ordered and it was elevated 0.263, and trending down at 0.25. Called Cardiology, Dr. Wheeler who evaluated the patient and feels his fluid accumulation could have been due to right-sided heart failure verses liver cirrhosis/pulmonary hypertension given his history of alcohol abuse (no longer drinking alcohol) versus SHEFALI. Patient did not complain ApneaLink while here in the hospital this can be further set up outpatient if he would like to pr
--- NOTE | 2021-04-15 10:26 | PM.PNORT ---
Progress Note: A&P Assessment and Plan (1) Closed fracture of right hip: Qualifiers: Encounter type: initial encounter Qualified Code(s): S72.001A - Fracture of unspecified part of neck of right femur, initial encounter for closed fracture Code(s): S72.001A - Fracture of unspecified part of neck of right femur, initial encounter for closed fracture Status: Acute Assessment and Plan: POD #3: INSERTION GAMMA CASS RIGHT HIP Continue PT/OT. WBAT. Walker. HIGH FALL RISK. Monitor dressing. Transition to Mepilex Silver dressing today. Pain control. Ice Hip. SCDs. Incentive Spirometry. DVT prophylaxis. Dispo: ARF vs Swing Bed when medically cleared. Follow up arranged. (2) Right-sided heart failure: Code(s): I50.810 - Right heart failure, unspecified Status: Acute Assessment and Plan: Cardiology following Subjective Subjective Date/Time Seen: 04/15/21 0930 Interval history: POD#3: INSERTION GAMMA CASS RIGHT HIP Pain well controlled. No concerns regarding hip today. Review of Systems Review of Systems: All systems reviewed & are unremarkable except as noted in HPI and below Constitutional: Constitutional: Denies chills, Denies fever(s), Denies headache(s), Denies lethargy and Reports weakness ENT: Denies headache(s) Gastrointestinal: Gastrointestinal: Denies constipation, Denies diarrhea, Denies nausea and Denies vomiting Genitourinary: Genitourinary: Denies dysuria, Reports urinary frequency and Denies urinary hesitancy Musculoskeletal: Musculoskeletal: Reports joint swelling (Right Hip ) and Reports limited range of motion (Right Hip due to recent surgery ) Neurologic: Denies headache(s) and Reports weakness Endocrine: Endocrine: Denies palpitations Exam Const: General: comfortable and no acute distress Resp: Effort & Inspection: normal respiratory effort Cardio: Rate: regular rate Rhythm: regular rhythm GI: Inspection: non-distended Skin: General skin exam: normal color Other: Incision right hip c/d/i. Surrounding tissue without redness/warmth. Mild swelling consistent with recent surgery. No drainage. Neuro: Cognition (Neuro): normal cognition Speech: normal speech Other: Strength RLE decreased due to recent surgery. +ankle dorsiflexion/plantarflexion. NV intact. Moves toes. Sensaiton intact to light touch. Extrem: Right lower extremity: normal to inspection, normal capillary refill and hip/thigh Details: tenderness Location: of the hip (Thigh soft ) Location: laterally and anteriorly, swelling Location: at the hip, abnormal ROM (limited consistent with recent surgery ) and other (Incision c/d/i. ); no deformity and no unusual warmth Objective Data Vital Signs Vital Signs: Vital Signs - 24 hr 04/14/21 12:00 04/14/21 16:00 04/14/21 20:00 Temperature 37.0 C Pulse Rate 78 81 87 Respiratory Rate 18 Blood Pressure 117/70 Pulse Oximetry 96 04/14/21 20:49 04/15/21 00:00 04/15/21 04:00 Temperature 36.7 C 36.3 C L Pulse Rate 80 77 81 Respiratory Rate 18 20 Blood Pressure 124/74 128/70 Pulse Oximetry 96 98 04/15/21 08:03 Temperature Pulse Rate 76 Respiratory Rate Blood Pressure Pulse Oximetry Intake/Output Intake/Output: Intake & Output 04/12/21 04/13/21 04/14/21 04/15/21 23:59 23:59 23:59 23:59 Intake Total 1034 1795 785 Output Total 1200 2300 1500 900 Balance -166 -505 -715 -900 Meds/Results Medications: Active Medications Generic Name Dose Route Start Last Admin Trade Name Freq PRN Reason Stop Dose Admin Acetaminophen 650 mg 04/12/21 14:04 Acetaminophen 325 Mg Tablet PO Q6H PRN Mild Pain (1-3) or Fever Hydrocodone Bitart/Acetaminophen 1 tab 04/12/21 14:04 04/15/21 08:14 Hydrocodone/Acetaminophen (*Crx) 7.5-325 Mg Tablet PO 1 tab Q3H PRN Administration Pain Rated 4-6 Ascorbic Acid 500 mg 04/13/21 09:00 04/15/21 08:04 Ascorbic Acid 500 Mg Tablet PO
[2021-04-15 12:47] LABS: Glucose Point of Care 130 mg/dl (65-105)
--- NOTE | 2021-04-15 13:40 | PM.PNCARD ---
Progress Note: A&P Assessment and Plan (1) Right-sided heart failure: Code(s): I50.810 - Right heart failure, unspecified Status: Acute Assessment and Plan: Patient has what sounds to be right-sided heart failure. He does have evidence of RV enlargement and hypokinesis noted on echocardiogram but with normal left heart function. Echocardiogram does not show any LV involvement and isolated right heart infarction would be rare. D-dimer was negative which nearly excludes pulmonary embolism. He refused ApneaLink last night. Will retry tonight to see he has sleep apnea as a cause of RV failure also.. He states that he used to weigh 50 lb more than what he did even prior to his weight loss. Underwent Lexiscan stress test this morning that showed normal myocardial perfusion at rest and during stress, LVEF greater than 70%. Consider advanced outpatient imaging evaluating for things such as arrhythmogenic right ventricular dysplasia. (2) Hypertension associated with diabetes: Code(s): E11.59 - Type 2 diabetes mellitus with other circulatory complications; I15.2 - Hypertension secondary to endocrine disorders Status: Acute Assessment and Plan: At goal. (3) History of alcohol abuse: Code(s): F10.11 - Alcohol abuse, in remission Status: Acute Assessment and Plan: Right upper quadrant ultrasound unremarkable (4) Elevated troponin: Code(s): R77.8 - Other specified abnormalities of plasma proteins Status: Acute Assessment and Plan: Troponins are showing no significant rise or fall. May be related to underlying renal disease plus-minus fall/injury. Repeat EKG unchanged. (5) Hyperlipidemia associated with type 2 diabetes mellitus: Code(s): E11.69 - Type 2 diabetes mellitus with other specified complication; E78.5 - Hyperlipidemia, unspecified Status: Acute Assessment and Plan: Continue statin (6) Closed fracture of right hip: Qualifiers: Encounter type: initial encounter Qualified Code(s): S72.001A - Fracture of unspecified part of neck of right femur, initial encounter for closed fracture Code(s): S72.001A - Fracture of unspecified part of neck of right femur, initial encounter for closed fracture Status: Acute Assessment and Plan: Status post ORIF (7) Hypomagnesemia: Code(s): E83.42 - Hypomagnesemia Status: Acute Assessment and Plan: Replaced Subjective Date/time seen: 02/21/22 13:40 cardiology follow-up for heart failure Patient is not feeling well today. Complaining of right hip and back pain. This is currently exacerbated by the fact that the patient has had a lie flat for stress testing. He does not have any other complaints. Denies shortness of breath, chest pain. Review of Systems Review of Systems: All systems reviewed & are unremarkable except as noted in HPI and below Constitutional: Constitutional: Denies excessive sweating, Denies headache(s) and Denies weakness Eyes: Eyes: Denies blurry vision ENT: Reports Normal hearing present, Denies headache(s) and Denies neck pain Cardiovascular: Cardiovascular: Denies chest pain, Reports leg edema and Denies dyspnea Respiratory: Respiratory: Denies dyspnea Gastrointestinal: Gastrointestinal: Reports bloating Genitourinary: Genitourinary: Denies dysuria Musculoskeletal: Musculoskeletal: Reports arthralgias and Denies neck pain Integumentary/Breasts: Skin/Breast: Denies dry skin Neurologic: Reports Normal hearing present, Denies headache(s) and Denies weakness Psychiatric: Psychiatric: Denies anxiety Endocrine: Endocrine: Denies excessive sweating Hematologic/Lymphatic: Hematologic/Lymphatic: Denies easy bleeding Allergic/Immunologic: Allergic/Immunologic: Denies GI upset with certain foods Exam Narrative: Awake alert oriented. Appears to be no acute distress. Appears stated age Const: General: comfortable
[2021-04-15 16:07] LABS: Glucose Point of Care 164 mg/dl (65-105)
[2021-04-15] MEDS: RIVAROXABAN 10 MG TABLET PO (16:31)
[2021-04-15] MEDS: LATANOPROST 0.005% OP SOLN 2.5 ML BTL 1 DROP EACH EYE (20:16)
[2021-04-15] MEDS: TAMSULOSIN HCL 0.4 MG CAPSULE 0.8 MG PO (20:16)
[2021-04-16] VITALS (24 sets, daily range): BP systolic 83–151; BP diastolic 56–79; PULSE 68–89; RESP 14–16; TEMP 36.4–37.1; O2SAT 96–99
[2021-04-16 05:36] LABS: Glucose Point of Care 128 mg/dl (65-105)
[2021-04-16 06:13] LABS: Anion Gap 7 mmol/L (8-16); Blood Urea Nitrogen 28 mg/dL (9-20); Calcium 8.8 mg/dL (8.4-10.2); Carbon Dioxide 25 mmol/L (22-30); Chloride 107 mmol/L (98-107); Estimated CRCL calculation 46 ml/min; Estimated Glomerular Filt Rate 50; Glucose 121 mg/dL (65-110); Potassium 3.8 mmol/L (3.4-5.0); Sodium 139 mmol/L (137-145)
[2021-04-16] MEDS: MORPHINE SULFATE (*CRX) 4 MG/ML INJ 3 MG IV PUSH (06:26)
[2021-04-16 08:01] LABS: Glucose Point of Care 130 mg/dl (65-105)
[2021-04-16] MEDS: SENNA/DOCUSATE SODIUM TABLET 2 TAB PO ×2 (09:03→17:27)
[2021-04-16] MEDS: FAMOTIDINE 20 MG TABLET PO ×2 (09:03→20:10)
[2021-04-16] MEDS: VITAMIN B COMPLEX/VIT C CAPSULE 1 EACH PO (09:03)
[2021-04-16] MEDS: ASCORBIC ACID 500 MG TABLET PO (09:03)
[2021-04-16] MEDS: GABAPENTIN 400 MG CAPSULE 1200 MG PO ×2 (09:03→17:26)
[2021-04-16] MEDS: BRIMONIDINE TARTRATE 0.2% OP SOLN 5 ML BTL 1 DROP EACH EYE (09:03)
[2021-04-16] MEDS: polyethylene glycoL 3350 17 GM POWD.PACK PO (09:03)
[2021-04-16] MEDS: CYANOCOBALAMIN 1,000 MCG TABLET 1000 MCG PO (09:03)
[2021-04-16] MEDS: FERROUS SULFATE 324 MG TABLET PO ×2 (09:04→17:26)
[2021-04-16] MEDS: ATORVASTATIN 20 MG TABLET PO (09:04)
[2021-04-16] MEDS: FUROSEMIDE 20 MG TABLET PO (09:04)
[2021-04-16] MEDS: ZINC SULFATE 220 MG CAPSULE PO (09:04)
--- NOTE | 2021-04-16 09:17 | PM.PNORT ---
Progress Note: A&P Assessment and Plan (1) Closed fracture of right hip: Qualifiers: Encounter type: initial encounter Qualified Code(s): S72.001A - Fracture of unspecified part of neck of right femur, initial encounter for closed fracture Code(s): S72.001A - Fracture of unspecified part of neck of right femur, initial encounter for closed fracture Status: Acute Assessment and Plan: POD #4: INSERTION GAMMA CASS RIGHT HIP Continue PT/OT. WBAT. Walker. HIGH FALL RISK. Monitor dressing. Mepilex silver. Change on POD #7. Pain control. Ice Hip. SCDs. Incentive Spirometry. DVT prophylaxis. Dispo: [facility] Swing [facility] when medically cleared. Follow up arranged. (2) Right-sided heart failure: Code(s): I50.810 - Right heart failure, unspecified Status: Acute Assessment and Plan: Cardiology following. Plans for outpatient workup. Additional Plan Reviewed labs, VS and exam with attending MD, Dr. Marquez. Agrees with current plan of care. No further recommendations. Time Spent With Patient Time with patient: less than 15 minutes Subjective Subjective Date/Time Seen: 04/16/ 09:17 Interval history: POD#4: INSERTION GAMMA CASS RIGHT HIP Some pain with PT/OT this AM. Anxious to be discharge. Confused to time. No other concerns. Review of Systems Review of Systems: All systems reviewed & are unremarkable except as noted in HPI and below Constitutional: Constitutional: Denies chills, Denies fever(s), Denies headache(s), Denies lethargy and Reports weakness ENT: Denies headache(s) Gastrointestinal: Gastrointestinal: Denies constipation, Denies diarrhea, Denies nausea and Denies vomiting Genitourinary: Genitourinary: Denies dysuria, Reports urinary frequency and Denies urinary hesitancy Musculoskeletal: Musculoskeletal: Reports joint swelling (Right Hip ) and Reports limited range of motion (Right Hip due to recent surgery ) Neurologic: Denies headache(s) and Reports weakness Endocrine: Endocrine: Denies palpitations Exam Const: General: comfortable and no acute distress Resp: Effort & Inspection: normal respiratory effort Cardio: Rate: regular rate Rhythm: regular rhythm GI: Inspection: non-distended Skin: General skin exam: normal color Other: Incision right hip c/d/i. Surrounding tissue without redness/warmth. Mild swelling consistent with recent surgery. No drainage. Neuro: Cognition (Neuro): normal cognition Speech: normal speech Other: Strength RLE decreased due to recent surgery. +ankle dorsiflexion/plantarflexion. NV intact. Moves toes. Sensaiton intact to light touch. Extrem: Right lower extremity: normal to inspection, normal capillary refill and hip/thigh Details: tenderness Location: of the hip (Thigh soft ) Location: laterally and anteriorly, swelling Location: at the hip, abnormal ROM (limited consistent with recent surgery ) and other (Incision c/d/i. ); no deformity and no unusual warmth Objective Data Vital Signs Vital Signs: Vital Signs - 24 hr 04/15/21 12:00 04/15/21 14:06 04/15/21 16:00 Temperature 36.3 C L Pulse Rate 73 68 74 Respiratory Rate 16 Blood Pressure 112/67 Pulse Oximetry 99 04/15/21 18:45 04/15/21 20:00 04/15/21 20:16 Temperature 36.8 C Pulse Rate 77 71 77 Respiratory Rate 16 18 Blood Pressure 118/69 Pulse Oximetry 99 99 04/15/21 20:41 04/16/21 00:00 04/16/21 00:16 Temperature 36.4 C 36.8 C Pulse Rate 75 68 78 Respiratory Rate 18 16 Blood Pressure 122/85 129/79 Pulse Oximetry 99 97 04/16/21 01:17 04/16/21 04:00 04/16/21 06:00 Temperature 37.1 C Pulse Rate 71 76 Respiratory Rate 16 Blood Pressure 151/68 H Pulse Oximetry 98 99 Intake/Output Intake/Output: Intake & Output 04/13/21 04/14/21 04/15/21 04/16/21 23:59 23:59 23:59 23:59 Intake Total 1795 785 820 200 Output Total 2300 1500 1450 650 Balance -505 -715 -630 -450 Meds/Results Medications: Active
[2021-04-16 11:53] LABS: Glucose Point of Care 169 mg/dl (65-105)
--- NOTE | 2021-04-16 12:43 | PM.IMPN ---
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 Patient states he was getting echocardiogram because he had been having increased leg swelling over the last few weeks and had gained 25 lb. His primary care provider had increased his Lasix from 20 mg to 80 mg which she had been taking and he is now back to his normal weight and not having any leg swelling. He states he was walking into the hospital and slipped and fell landing on his right side and fractured his hip. Initial vitals showed blood pressure 139/89, heart rate 73 beats per minute, afebrile, normal oxygenation on room air. Initial labs showed normal white blood cell count, normocytic anemia with a hemoglobin of 10, hematocrit 32%, slight thrombocytopenia of 148,000. Normal coag panel. Slight creatinine elevation at 2.0, BUN 43. Potassium low normal at 3.5. Normal lactic acid. Normal LFTs. Hip x-ray showed nondisplaced linear right intertrochanteric hip fracture. Chest x-ray showed small lung volumes, no acute cardiopulmonary disease. Patient was admitted into the hospital for hip fracture with a consult to Orthopedic surgery. Patient was taken to surgery on 04/12/2021 (POD #4) to have insertion of gamma woody to the right hip by Dr. Marquez. Pain management, Discharge planning, Post-op care, DVT Prophylaxis per Dr. Marquez. Patient has been accepted into [facility] bed and will be discharged either today vs tomorrow (2) Right-sided heart failure: Code(s): I50.810 - Right heart failure, unspecified Status: Acute Assessment and Plan: Patient states he was coming to the hospital to get an echocardiogram because he had been having some leg swelling and a recent increase of his Lasix dosing from 20 mg to 80 mg daily. He states he is now back to his baseline weight and not having very much leg swelling at all. Echocardiogram was completed showing Left ventricular chamber dimension is normal. Left ventricular systolic function is normal, estimated at 65-70%. There is no increased left ventricular wall thickness. The left ventricular diastolic function is grade I diastolic dysfunction. Right ventricular chamber dimension is mildly enlarged. There is no aortic valve stenosis. There is trace tricuspid valve regurgitation. No pulmonary hypertension, estimated pulmonary arterial systolic pressure is 30 mmHg. Right ventricular systolic function is mild to moderately reduced with relative sparing of the apex consistent with Singh sign which can be seen with pulmonary embolism and/or RV infarction. Clinical correlation advised I ordered a D dimer which was negative for PE so no further work up is needed Troponin ordered and it was elevated 0.263, and trending down at 0.25. Called Cardiology, Dr. Wheeler who evaluated the patient and feels his fluid accumulation could have been due to right-sided heart failure verses liver cirrhosis/pulmonary hypertension given his history of alcohol abuse (no longer drinking alcohol) versus SHEFALI. Patient did not complain ApneaLink while here in the hospital this can be further set up outpatient if he would like to proceed. Patient does state that if he r
--- NOTE | 2021-04-16 12:55 | PM.DS ---
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 Patient states he was getting echocardiogram because he had been having increased leg swelling over the last few weeks and had gained 25 lb. His primary care provider had increased his Lasix from 20 mg to 80 mg which she had been taking and he is now back to his normal weight and not having any leg swelling. He states he was walking into the hospital and slipped and fell landing on his right side and fractured his hip. Initial vitals showed blood pressure 139/89, heart rate 73 beats per minute, afebrile, normal oxygenation on room air. Initial labs showed normal white blood cell count, normocytic anemia with a hemoglobin of 10, hematocrit 32%, slight thrombocytopenia of 148,000. Normal coag panel. Slight creatinine elevation at 2.0, BUN 43. Potassium low normal at 3.5. Normal lactic acid. Normal LFTs. Hip x-ray showed nondisplaced linear right intertrochanteric hip fracture. Chest x-ray showed small lung volumes, no acute cardiopulmonary disease. Patient was admitted into the hospital for hip fracture with a consult to Orthopedic surgery. Patient was taken to surgery on 04/12/2021 (POD #4) to have insertion of gamma woody to the right hip by Dr. Marquez. Pain management, Discharge planning, Post-op care, DVT Prophylaxis per Dr. Marquez. Patient has been accepted into [facility] swing bed and will be discharged either today vs tomorrow (2) Right-sided heart failure: Code(s): I50.810 - Right heart failure, unspecified Status: Acute Assessment and Plan: Patient states he was coming to the hospital to get an echocardiogram because he had been having some leg swelling and a recent increase of his Lasix dosing from 20 mg to 80 mg daily. He states he is now back to his baseline weight and not having very much leg swelling at all. Echocardiogram was completed showing Left ventricular chamber dimension is normal. Left ventricular systolic function is normal, estimated at 65-70%. There is no increased left ventricular wall thickness. The left ventricular diastolic function is grade I diastolic dysfunction. Right ventricular chamber dimension is mildly enlarged. There is no aortic valve stenosis. There is trace tricuspid valve regurgitation. No pulmonary hypertension, estimated pulmonary arterial systolic pressure is 30 mmHg. Right ventricular systolic function is mild to moderately reduced with relative sparing of the apex consistent with Singh sign which can be seen with pulmonary embolism and/or RV infarction. Clinical correlation advised I ordered a D dimer which was negative for PE so no further work up is needed Troponin ordered and it was elevated 0.263, and trending down at 0.25. Called Cardiology, Dr. Wheeler who evaluated the patient and feels his fluid accumulation could have been due to right-sided heart failure verses liver cirrhosis/pulmonary hypertension given his history of alcohol abuse (no longer drinking alcohol) versus SHEFALI. Patient did not complain ApneaLink while here in the hospital this can b
[2021-04-16] MEDS: LACTATED RINGERS 500 ML 80 ML IV CONT (12:59)
[2021-04-16] MEDS: HYDROcodone/acetaminophen (*CRX) 7.5-325 MG TABLET 1 TAB PO (12:59)
[2021-04-16 16:36] LABS: Glucose Point of Care 146 mg/dl (65-105)
[2021-04-16] MEDS: RIVAROXABAN 10 MG TABLET PO (17:26)
[2021-04-16] MEDS: MAGNESIUM HYDROXIDE SUSP 30 ML UDC PO (17:29)
[2021-04-16] MEDS: METOPROLOL TARTRATE 12.5 MG TABLET PO (20:10)
[2021-04-16] MEDS: LATANOPROST 0.005% OP SOLN 2.5 ML BTL 1 DROP EACH EYE (20:10)
[2021-04-16] MEDS: TAMSULOSIN HCL 0.4 MG CAPSULE 0.8 MG PO (20:10)
[2021-04-16 20:25] LABS: Glucose Point of Care 179 mg/dl (65-105)
[2021-04-17] VITALS (19 sets, daily range): BP systolic 90–149; BP diastolic 45–78; PULSE 66–98; RESP 14–18; TEMP 36.3–36.7; O2SAT 93–100
[2021-04-17 06:32] LABS: Anion Gap 6 mmol/L (8-16); Blood Urea Nitrogen 30 mg/dL (9-20); Calcium 8.4 mg/dL (8.4-10.2); Carbon Dioxide 26 mmol/L (22-30); Chloride 106 mmol/L (98-107); Estimated CRCL calculation 46 ml/min; Estimated Glomerular Filt Rate 50; Glucose 137 mg/dL (65-110); Potassium 3.9 mmol/L (3.4-5.0); Sodium 138 mmol/L (137-145)
[2021-04-17] MEDS: HYDROcodone/acetaminophen (*CRX) 7.5-325 MG TABLET 1 TAB PO ×4 (06:51→20:26)
[2021-04-17 08:02] LABS: Glucose Point of Care 141 mg/dl (65-105)
[2021-04-17] MEDS: CYANOCOBALAMIN 1,000 MCG TABLET 1000 MCG PO (08:25)
[2021-04-17] MEDS: polyethylene glycoL 3350 17 GM POWD.PACK PO (08:25)
[2021-04-17] MEDS: SENNA/DOCUSATE SODIUM TABLET 2 TAB PO ×2 (08:26→16:36)
[2021-04-17] MEDS: GABAPENTIN 400 MG CAPSULE 1200 MG PO ×2 (08:26→16:37)
[2021-04-17] MEDS: ASCORBIC ACID 500 MG TABLET PO (08:29)
[2021-04-17] MEDS: VITAMIN B COMPLEX/VIT C CAPSULE 1 EACH PO (08:29)
[2021-04-17] MEDS: FERROUS SULFATE 324 MG TABLET PO ×2 (08:29→16:37)
[2021-04-17] MEDS: DOXAZOSIN MESYLATE 2 MG TABLET PO (08:30)
[2021-04-17] MEDS: ZINC SULFATE 220 MG CAPSULE PO (08:30)
[2021-04-17] MEDS: FAMOTIDINE 20 MG TABLET PO ×2 (08:30→20:24)
[2021-04-17] MEDS: ATORVASTATIN 20 MG TABLET PO (08:30)
[2021-04-17] MEDS: BRIMONIDINE TARTRATE 0.2% OP SOLN 5 ML BTL 1 DROP EACH EYE (08:30)
[2021-04-17] MEDS: SODIUM CHLORIDE 0.9% IV 500 ML IV CONT (10:01)
[2021-04-17] MEDS: LIDOCAINE 5% PATCH 1 PATCH TRANSDERM (10:05)
[2021-04-17 12:21] LABS: Glucose Point of Care 158 mg/dl (65-105)
--- NOTE | 2021-04-17 12:58 | PM.IMPN ---
Progress Note: A&P Assessment and Plan (1) Closed fracture of right hip: Onset Date: 04/11/21 Qualifiers: Encounter type: initial encounter Qualified Code(s): S72.001A - Fracture of unspecified part of neck of right femur, initial encounter for closed fracture Code(s): S72.001A - Fracture of unspecified part of neck of right femur, initial encounter for closed fracture Status: Acute Assessment and Plan: - Today is post-operative Day #5 post insertion of Gamma woody by Dr. Marquez. - Manage pain with pain medications. - Awaiting to go to [facility] at discharge after pt's orthostasis has resolved. (2) Right-sided heart failure: Onset Date: Unknown Qualifiers: Heart failure chronicity: chronic Qualified Code(s): I50.812 - Chronic right heart failure Code(s): I50.810 - Right heart failure, unspecified Status: Chronic Assessment and Plan: - ECHO with preserved EF of 65-70%. - Current dose of Lasix is 80 mg po daily. - Right ventricular chamber is mildly enlarged, LVSD is grade 1. There is TVR and no pulmonary HTN. - Initial troponin's were slightly elevated and trended downward. - Will need Sleep study as ouptatient. Pt. refused Apnealink here as he states he would not be compliant with a CPAP anyway. - Lexiscan stress is normal. - Was discharged from Cardiology standpoint and requires follow up as outpatient only after discharge. (3) Iron deficiency anemia: Onset Date: ~04/17/21 Qualifiers: Iron deficiency anemia type: unspecified iron deficiency Qualified Code(s): D50.9 - Iron deficiency anemia, unspecified Code(s): D50.9 - Iron deficiency anemia, unspecified Status: Chronic Assessment and Plan: - Currently stable with H&H at baseline today at 9.2/28.3. - Will recheck with AM labs. (4) Vitamin B12 deficiency: Onset Date: Unknown Code(s): E53.8 - Deficiency of other specified B group vitamins Status: Chronic Assessment and Plan: - Continue Vitamin B-12 supplementation. (5) Hyperlipidemia: Onset Date: Unknown Qualifiers: Hyperlipidemia type: mixed hyperlipidemia Qualified Code(s): E78.2 - Mixed hyperlipidemia Code(s): E78.5 - Hyperlipidemia, unspecified Status: Chronic Assessment and Plan: - Continue a heart healthy diet. - Continue Lipitor 20 mg po daily. (6) BPH with obstruction/lower urinary tract symptoms: Onset Date: Unknown Code(s): N40.1 - Benign prostatic hyperplasia with lower urinary tract symptoms; N13.8 - Other obstructive and reflux uropathy Status: Chronic Assessment and Plan: - Continue with Tamsulosin and Doxazosin. (7) Orthostatic hypotension: Onset Date: 04/17/21 Code(s): I95.1 - Orthostatic hypotension Status: Acute Assessment and Plan: - Carotid Dopplers unremarkable (<50% stenosis) - CT of brain ordered. - Symptoms improved with bolus of 500 ml. - Start IVF of 100 ml/hr - Recheck Orthostatic VS every shift. Time Spent With Patient Time with patient: 25 - 35 minutes Subjective Date/time seen: 04/17/21 09 This pt. was examined at the bedside in interval assessment. He continues to report pain and it has been difficult to control. He has no new complaints at this time with exception of when he attempts to get out of bed. He reports dizziness and weakness when he attempts to get out of bed. NO change in vision and no focal symptoms, he just feels very dizzy and becomes weak. He is assessed to be orthostatic at these times. No CP, Dyspnea, N/V BP recovers with 500 ml bolus of NS and carotid dopplers were ordered and show <50% in both ICA's. CT of head is ordered. Will give IVF at a rate of 100 ml/hr and re-evaluate patient's Orthostats every shift. Possible discharge to [facility] tomorrow at [place] pending review of VS and data in the AM. Review of Systems Review of Systems: Jolie
[2021-04-17] MEDS: SODIUM CHLORIDE 0.9% IV 1,000 ML 100 ML IV CONT (14:21)
[2021-04-17] MEDS: RIVAROXABAN 10 MG TABLET PO (16:39)
[2021-04-17 16:49] LABS: Glucose Point of Care 145 mg/dl (65-105)
[2021-04-17] MEDS: TAMSULOSIN HCL 0.4 MG CAPSULE 0.8 MG PO (20:24)
[2021-04-17] MEDS: LATANOPROST 0.005% OP SOLN 2.5 ML BTL 1 DROP EACH EYE (20:25)
[2021-04-17 20:47] LABS: Glucose Point of Care 139 mg/dl (65-105)
[2021-04-18] VITALS (8 sets, daily range): BP systolic 98–141; BP diastolic 70–80; PULSE 72–90; RESP 16–18; TEMP 36.3–36.7; O2SAT 97–99
[2021-04-18] MEDS: SODIUM CHLORIDE 0.9% IV 1,000 ML 100 ML IV CONT (01:45)
[2021-04-18] MEDS: HYDROcodone/acetaminophen (*CRX) 7.5-325 MG TABLET 1 TAB PO (05:26)
[2021-04-18 06:18] LABS: Basophils Percent Auto 0.7 % (0.2-1.2); Eosinophils Absolute Auto 0.5 K/mm3 (0-0.3); Eosinophils Percent Auto 9.6 % (0-4.4); Hematocrit 28.7 % (42.0-52.0); Hemoglobin 9.3 g/dL (14.0-18.0); Immature Granulocyte Absolute 0.02 K/mm3 (0.00-0.031); Immature Granulocyte Percent A 0.4 % (0-0.5); Lymphocytes Absolute Auto 1.14 K/mm3 (0.9-3.2); Lymphocytes Percent Auto 21.1 % (18.3-44.2); Mean Corpuscular HGB Conc 32.4 g/dl (32-36); Mean Corpuscular Hemoglobin 29.9 pg (26-34); Mean Corpuscular Volume 92.3 fl (80-100); Mean Platelet Volume 10.6 fl (7.4-10.4); Monocytes Absolute Auto 0.7 K/mm3 (0.1-0.6); Monocytes Percent Auto 12.4 % (2.6-8.5); Neutrophils Percent Auto 55.8 % (45.5-73.1); Platelet Count Result 170 k/mm3 (150-375); Red Blood Count 3.11 M/mm3 (4.6-6.20); Red Cell Distribution Width 13.8 % (11.5-14.5); White Blood Count 5.4 K/mm3 (4.5-10.0)
--- NOTE | 2021-04-18 06:58 | PM.DS ---
DS: Admitting Diagnosis Discharge Date 04/18/2021 Admitting Diagnosis Fracture of unspecified part of neck of right femur, initial encounter for closed fracture. DS: Discharge Diagnosis Discharge Diagnosis (1) Femur fracture, right: Onset Date: 04/11/21 Qualifiers: Encounter type: initial encounter Code(s): S72.91XA - Unspecified fracture of right femur, initial encounter for closed fracture Status: Acute Assessment and Plan: [facility] [place] [address] Discharge SummaryDraft Patient: Santi Torrez LMR#: [id number]: 9Acct:[id number]/Sex: 71 / MADM Date: 04/11/21Loc: [id number] Dr: Samira Garcia PA-C cc: ~ DS: Admitting Diagnosis Discharge Date 04/16/21 Admitting Diagnosis Hip pain DS: Discharge Diagnosis Discharge Diagnosis (1) Closed fracture of right hip: Qualifiers: Encounter type: initial encounter Qualified Code(s): S72.001A - Fracture of unspecified part of neck of right femur, initial encounter for closed fracture Code(s): S72.001A - Fracture of unspecified part of neck of right femur, initial encounter for closed fracture Status: Acute Assessment and Plan: Patient is a 71-year-old man with a history of your 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 Patient states he was getting echocardiogram because he had been having increased leg swelling over the last few weeks and had gained 25 lb. His primary care provider had increased his Lasix from 20 mg to 80 mg which she had been taking and he is now back to his normal weight and not having any leg swelling. He states he was walking into the hospital and slipped and fell landing on his right side and fractured his hip. Initial vitals showed blood pressure 139/89, heart rate 73 beats per minute, afebrile, normal oxygenation on room air. Initial labs showed normal white blood cell count, normocytic anemia with a hemoglobin of 10, hematocrit 32%, slight thrombocytopenia of 148,000. Normal coag panel. Slight creatinine elevation at 2.0, BUN 43. Potassium low normal at 3.5. Normal lactic acid. Normal LFTs. Hip x-ray showed nondisplaced linear right intertrochanteric hip fracture. Chest x-ray showed small lung volumes, no acute cardiopulmonary disease. Patient was admitted into the hospital for hip fracture with a consult to Orthopedic surgery. Patient was taken to surgery on 04/12/2021 (POD #4) to have insertion of gamma woody to the right hip by Dr. Marquez. Pain management, Discharge planning, Post-op care, DVT Prophylaxis per Dr. Marquez. Patient has been accepted into [facility] bed and will be discharged today (2) Right-sided heart failure: Onset Date: Unknown Qualifiers: Heart failure chronicity: chronic Qualified Code(s): I50.812 - Chronic right heart failure Code(s): I50.810 - Right heart failure, unspecified Status: Chronic Assessment and Plan: Echocardiogram was completed showing Left ventricular chamber dimension is normal. Left ventricular systolic function is normal, estimated at 65-70%. There is no increased left ventricular wall thickness. The left ventricular diastolic function is grade I diastolic dysfunction. Right ventricular chamber dimension is mildly enlarged. There is no aortic valve stenosis. There is trace tricuspid valve regurgitation. No pulmonary hypertension, estimated pulmonary arterial systolic pressure is 30 mmHg. Right ventricular systolic function is mild to moderately reduced with relative sparing of the apex consistent with Singh sign which can be seen with pulmonary embolism and/or RV infa
[2021-04-18 07:52] LABS: Glucose Point of Care 132 mg/dl (65-105)
[2021-04-18 08:01] LABS: Alanine Aminotransferase 10 U/L (4-50); Albumin Level 3.4 g/dL (3.5-5.1); Alkaline Phosphatase 71 U/L (38-126); Anion Gap 5 mmol/L (8-16); Aspartate Amino Transferase 22 U/L (17-59); Bilirubin,Total 0.7 mg/dL (0.2-1.3); Blood Urea Nitrogen 24 mg/dL (9-20); Calcium 8.4 mg/dL (8.4-10.2); Carbon Dioxide 25 mmol/L (22-30); Chloride 107 mmol/L (98-107); Estimated CRCL calculation 46 ml/min; Estimated Glomerular Filt Rate 50; Glucose 138 mg/dL (65-110); Potassium 4.1 mmol/L (3.4-5.0); Sodium 137 mmol/L (137-145)
[2021-04-18] MEDS: ATORVASTATIN 20 MG TABLET PO (08:44)
[2021-04-18] MEDS: BRIMONIDINE TARTRATE 0.2% OP SOLN 5 ML BTL 1 DROP EACH EYE (08:44)
[2021-04-18] MEDS: SENNA/DOCUSATE SODIUM TABLET 2 TAB PO (08:44)
[2021-04-18] MEDS: GABAPENTIN 400 MG CAPSULE 1200 MG PO (08:44)
[2021-04-18] MEDS: ASCORBIC ACID 500 MG TABLET PO (08:45)
[2021-04-18] MEDS: ZINC SULFATE 220 MG CAPSULE PO (08:45)
[2021-04-18] MEDS: FERROUS SULFATE 324 MG TABLET PO (08:45)
[2021-04-18] MEDS: FAMOTIDINE 20 MG TABLET PO (08:46)
[2021-04-18] MEDS: DOXAZOSIN MESYLATE 2 MG TABLET PO (08:46)
[2021-04-18] MEDS: CYANOCOBALAMIN 1,000 MCG TABLET 1000 MCG PO (08:46)
[2021-04-18] MEDS: LIDOCAINE 5% PATCH 1 PATCH TRANSDERM (08:47)
[2021-04-18] MEDS: polyethylene glycoL 3350 17 GM POWD.PACK PO (08:54)
[2021-04-18] MEDS: VITAMIN B COMPLEX/VIT C CAPSULE 1 EACH PO (09:40)
[2021-04-18 10:36] LABS: EDCOVIDSCREEN Negative (Negative)
[2021-04-18 12:04] LABS: Glucose Point of Care 161 mg/dl (65-105)
--- NOTE | 2021-04-18 14:11 | PCNWS ---
Weekly nutritional screen. Patient is tolerating current diet with adequate intake. No weight loss reported. No nutritional needs at this time.
== END 2021-04-18 15:22 | disposition swing bed (61) | DRG 481 ==
LOC: ANHED 14:37 → ANH3MEDSUR 16:55 → ANH2MED 17:16
PROVIDERS: Nurse Practitioner; Orthopaedic Surgery; Physician Assistant; Admitting Provider Internal Medicine; Emergency Provider Emergency Medicine; PCP Family Medicine Adolescent Medicine; Visit Provider Nurse Practitioner Adult Health
PROC: 0QS634Z Reposition Right Upper Femur with Internal Fixation Device, Percutaneous Approach (ICD-10-PCS; CPT 27245; principal; 2021-04-12 10:00)
DX: S72.144A Nondisplaced intertrochanteric fracture of right femur, initial encounter for closed fracture (principal); N13.8 Other obstructive and reflux uropathy; N40.1 Benign prostatic hyperplasia with lower urinary tract symptoms; W00.0XXA Fall on same level due to ice and snow, initial encounter; Z20.822 Contact with and (suspected) exposure to COVID-19; I95.1 Orthostatic hypotension; R77.8 Other specified abnormalities of plasma proteins; E11.59 Type 2 diabetes mellitus with other circulatory complications; I15.2 Hypertension secondary to endocrine disorders; I11.0 Hypertensive heart disease with heart failure; I50.810 Right heart failure, unspecified; M25.461 Effusion, right knee; J45.30 Mild persistent asthma, uncomplicated; M81.0 Age-related osteoporosis without current pathological fracture; E11.69 Type 2 diabetes mellitus with other specified complication; E78.5 Hyperlipidemia, unspecified; D50.9 Iron deficiency anemia, unspecified; E53.8 Deficiency of other specified B group vitamins; E87.6 Hypokalemia; E83.42 Hypomagnesemia; K21.9 Gastro-esophageal reflux disease without esophagitis; F10.11 Alcohol abuse, in remission; H40.1132 Primary open-angle glaucoma, bilateral, moderate stage; M54.50 Low back pain, unspecified; G62.9 Polyneuropathy, unspecified; Z79.84 Long term (current) use of oral hypoglycemic drugs; Z79.899 Other long term (current) drug therapy; Z98.890 Other specified postprocedural states
CPT/HCPCS: 36415; 51702; 70450; 71045; 73502; 76705; 78452; 80048; 80053; 82550; 82607; 82728; 82746; 82948; 83036; 83540; 83550; 83605; 83615; 83735; 84443; 84484; 85025; 85027; 85046; 85380; 85610; 85730; 86850; 86880; 86900; 86901; 87426; 93005; 93017; 93306; 93880; 96374; 97110; 97161; 97165; 97530; 97535; 99285; A9270; A9502; C1713; C9803; J0690; J1100; J1170; J1815; J2250; J2270; J2405; J2704; J2785; J3010; J3420; J3475; J7030; J7040; J7120

== ENCOUNTER 2021-04-18 15:57 | Inpatient (IN) | payer MEDICARE, OTHER, MEDICAID, SELFPAY ==
[2021-04-18 16:35] VITALS: BP 162/82; PULSE 86; RESP 20; TEMP 37.4; O2SAT 96; BMI 24.9
[2021-04-18 17:10] LABS: Glucose Point of Care 120 mg/dl (65-105)
[2021-04-18] MEDS: metFORMIN HCL XR 500 MG TAB.SR.24H 1000 MG PO (17:27)
[2021-04-18] MEDS: RIVAROXABAN 10 MG TABLET PO (17:28)
[2021-04-18] MEDS: SENNA/DOCUSATE SODIUM TABLET 2 TAB PO (17:28)
[2021-04-18] MEDS: GABAPENTIN 400 MG CAPSULE 1200 MG PO (17:29)
--- NOTE | 2021-04-18 17:45 | ADMGEN ---
This patient, Santi Torrez, was admitted to 2nd Floor Room 209-1. Patient/family oriented to hospital policies and general routines including ID bracelet, bed and alarms, visiting hours, pain management, procedures, bathroom and other care routines, personal items, smoking policy, room service/diet, and visiting hours. Information on how to activate the Rapid Response Team has been discussed. Patient/Family are encouraged to report perceived risks to care and to ask questions if they do not understand what they are told or what they should do. here for ssb after fall and fx r hip. he is alert and orient but at times comes off a little confused. asks staff why they dumped his water out? explained that is his urinal and and it had urine in it. he didn't want to drink that. shakes his head and then realizes it is a urinal. drg dry and intact on hip.
[2021-04-18] MEDS: FERROUS SULFATE 324 MG TABLET PO (18:12)
[2021-04-18 18:13] VITALS: PULSE 86
[2021-04-18] MEDS: METOPROLOL TARTRATE 12.5 MG TABLET PO (18:13)
--- NOTE | 2021-04-18 18:26 | PC.NURSE ---
surgical drg to r hip is dry and intact. dr lincoln is to remove tomorrow (04-19-21).
[2021-04-18 20:51] LABS: Glucose Point of Care 141 mg/dl (65-105)
[2021-04-18] MEDS: TAMSULOSIN HCL 0.4 MG CAPSULE 0.8 MG PO (20:59)
[2021-04-18] MEDS: HYDROcodone/acetaminophen (*CRX) 7.5-325 MG TABLET 1 TAB PO (21:00)
[2021-04-19] VITALS: BP 148/70; PULSE 82; RESP 20; TEMP 37.1; O2SAT 96
--- NOTE | 2021-04-19 07:59 | PM.IMHP ---
H&P: HPI History of Present Illness Date/Time: 04/19/21 07:59 this is a 71-year-old male that was admitted to [facility] on 04/11/2021 for right hip pain status post mechanical fall. Imaging indicate closed fracture of the right hip. On 04/12/2021 a insertion of the gamma woody to the right hip was completed by Dr. Marquez. Patient admitted in swing bed for rehabilitation due to decreased balance decreased mobility in severe limited function endurant and/or mobility. The patient denies SOB, CP, palpitation, extremity numbness, lightheadedness, dizziness, constipation, diarrhea, chills, or fever. Chief Complaint: Weakness Review of Systems Review of Systems: A 14 organ system Review of Systems was performed and pertinent positives included in the HPI, otherwise remaining ROS is negative. [facility] Past Medical History Medical History (Updated 04/19/21 @ 08:31 by BIANCA Renner-C) BPH with obstruction/lower urinary tract symptoms (Unknown) Chronic pain Diabetes mellitus Diabetes type 2, controlled (Unknown) GERD (gastroesophageal reflux disease) (Unknown) Hyperlipidemia (Unknown) Hypertension Knee effusion, right Low back pain, unspecified Mild persistent asthma, uncomplicated Osteoporosis Polyneuropathy, unspecified Primary open-angle glaucoma, bilateral, moderate stage Surgical History Surgical History History of knee surgery History of penile implant Previous back surgery Family History Family History Father CAD (coronary artery disease) Alzheimer disease Mother Alzheimer disease Social History Social History Social History: The patient is a lifelong nonsmoker. The patient does not use any alcohol marijuana or illicit drugs. 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 He is . He has 1 son who is the durable power tax associate attorney for healthcare. Code status full code Smoking status: Never smoker Second hand tobacco smoke exposure: No Alcohol intake: former Substance use: never Substance use type: does not use Gender identity (if verbalized by the patient): Male Sexual Orientation (if Verbalized by the Patient): Straight or Heterosexual Spiritual care concerns: No Agree to blood products: Yes Meds Home Medications and Allergies Home Medications Medication Instructions Recorded Confirmed Type atorvastatin 20 mg PO DAILY 07/11/19 04/18/21 History brimonidine 1 drp OPHTHALMIC (EYE) DAILY 07/11/19 04/18/21 History doxazosin 2 mg tablet 2 mg PO DAILY 03/06/21 04/18/21 History furosemide 20 mg tablet 60 mg PO DAILY tablet 03/06/21 04/18/21 History gabapentin 600 mg tablet 1,200 mg PO BID tablet 03/06/21 04/18/21 History glimepiride 2 mg tablet 2 mg PO DAILY tablet 03/06/21 04/18/21 History metformin 500 mg tablet,extended 1,000 mg PO BID tablet 03/06/21 04/18/21 History release 24 hr tamsulosin 0.4 mg capsule 0.8 mg PO QHS cap 03/06/21 04/18/21 History trazodone 50 mg tablet 50 mg PO QHS PRN 03/06/21 04/18/21 History B-complex with vitamin C 1 tablet PO DAILY 04/01/21 04/18/21 History ascorbic acid (vitamin C) 500 mg 500 mg PO DAILY 04/01/21 04/18/21 History tablet latanoprost 0.005 % eye drops 1 drp EACH EYE DAILY 04/01/21 04/18/21 History pseudoephedrine HCl 120 mg 120 mg PO Q12H PRN 04/01/21 04/18/21 History tablet,extended release zinc 50 mg tablet 50 mg PO DAILY 04/01/21 04/18/21 History hydrocodone-acetaminophen 1 tablet PO Q4-6H PRN #56 tablet 04/15/21 04/18/21 Rx rivaroxaban [Xarelto] 10 mg PO DAILY@17 28 Days tablet 04/15/21 04/18/21 Rx sennosides-docusate sodium 2 tab PO BID 30 Days #60 tablet 04/15/21 04/18/21 Rx [Senokot-S] cyanocobalamin (vitamin B-12) 1,000 mcg PO QAM #30 tablet 04/16/21 04/18/21 Rx [Vitamin B-12] ferrous sulfate 324 mg PO BIDWM #60 tablet 04/16
[2021-04-19 08:00] VITALS: BP 164/74; PULSE 72; RESP 20; TEMP 37.1; O2SAT 97
[2021-04-19] MEDS: metFORMIN HCL XR 500 MG TAB.SR.24H 1000 MG PO ×2 (08:05→16:49)
[2021-04-19] MEDS: HYDROcodone/acetaminophen (*CRX) 7.5-325 MG TABLET 1 TAB PO ×3 (08:05→21:57)
[2021-04-19] MEDS: CYANOCOBALAMIN 1,000 MCG TABLET 1000 MCG PO (08:05)
[2021-04-19] MEDS: ASCORBIC ACID 500 MG TABLET PO (08:05)
[2021-04-19] MEDS: VITAMIN B COMPLEX CAPSULE 1 CAP PO (08:06)
[2021-04-19] MEDS: DOXAZOSIN MESYLATE 2 MG TABLET PO (08:07)
[2021-04-19] MEDS: SENNA/DOCUSATE SODIUM TABLET 2 TAB PO ×2 (08:07→16:50)
[2021-04-19] MEDS: ATORVASTATIN 10 MG TABLET 20 MG PO (08:07)
[2021-04-19] MEDS: FERROUS SULFATE 324 MG TABLET PO ×2 (08:08→16:49)
[2021-04-19] MEDS: BRIMONIDINE TARTRATE 0.2% OP SOLN 5 ML BTL 1 DROP EACH EYE (08:08)
[2021-04-19] MEDS: FUROSEMIDE 20 MG TABLET 60 MG PO (08:08)
[2021-04-19] MEDS: GLIMEPIRIDE 2 MG TABLET PO (08:08)
[2021-04-19 08:09] LABS: Glucose Point of Care 127 mg/dl (65-105)
[2021-04-19] MEDS: LIDOCAINE 5% PATCH 1 PATCH TRANSDERM (08:09)
[2021-04-19] MEDS: GABAPENTIN 400 MG CAPSULE 1200 MG PO ×2 (09:05→16:50)
[2021-04-19 09:43] VITALS: PULSE 78
[2021-04-19] MEDS: LORATADINE 5 MG TABLET PO (09:43)
[2021-04-19] MEDS: PANTOPRAZOLE SOD SESQUIHYDRATE 20 MG TAB PO (09:43)
[2021-04-19] MEDS: DICLOFENAC SODIUM 1% 100 GM GEL (*BKC) 1 APPLIC TOPICAL ×4 (09:43→21:56)
[2021-04-19] MEDS: METOPROLOL TARTRATE 12.5 MG TABLET PO ×2 (09:43→16:51)
[2021-04-19] MEDS: ZINC SULFATE 220 MG CAPSULE PO (09:43)
[2021-04-19 11:36] LABS: Glucose Point of Care 136 mg/dl (65-105)
[2021-04-19] MEDS: traMADol HCL (*CRX) 25 MG TABLET PO (12:33)
[2021-04-19 15:33] VITALS: BP 135/75; PULSE 69; RESP 18; TEMP 36.8; O2SAT 99
[2021-04-19 16:41] LABS: Glucose Point of Care 66 mg/dl (65-105)
[2021-04-19] MEDS: LATANOPROST 0.005% OP SOLN 2.5 ML BTL 1 DROP EACH EYE (16:49)
[2021-04-19 16:51] VITALS: PULSE 69
[2021-04-19] MEDS: RIVAROXABAN 10 MG TABLET PO (16:51)
[2021-04-19 20:21] LABS: Glucose Point of Care 96 mg/dl (65-105)
[2021-04-19] MEDS: TAMSULOSIN HCL 0.4 MG CAPSULE 0.8 MG PO (21:58)
[2021-04-20] VITALS: BP 120/75; PULSE 75; RESP 20; TEMP 37.1; O2SAT 98
[2021-04-20 07:51] LABS: Glucose Point of Care 90 mg/dl (65-105)
[2021-04-20 07:58] VITALS: BP 117/92; PULSE 94; RESP 14; TEMP 36.8; O2SAT 100
[2021-04-20] MEDS: ATORVASTATIN 10 MG TABLET 20 MG PO (08:57)
[2021-04-20] MEDS: DOXAZOSIN MESYLATE 2 MG TABLET PO (08:57)
[2021-04-20] MEDS: LIDOCAINE 5% PATCH 1 PATCH TRANSDERM (08:57)
[2021-04-20] MEDS: metFORMIN HCL XR 500 MG TAB.SR.24H 1000 MG PO ×2 (08:58→17:37)
[2021-04-20] MEDS: VITAMIN B COMPLEX CAPSULE 1 CAP PO (08:58)
[2021-04-20] MEDS: GABAPENTIN 400 MG CAPSULE 1200 MG PO ×2 (08:58→17:37)
[2021-04-20] MEDS: FUROSEMIDE 20 MG TABLET 60 MG PO (08:58)
[2021-04-20 08:59] VITALS: PULSE 77
[2021-04-20] MEDS: GLIMEPIRIDE 2 MG TABLET PO (08:59)
[2021-04-20] MEDS: METOPROLOL TARTRATE 12.5 MG TABLET PO ×2 (08:59→17:38)
[2021-04-20] MEDS: LORATADINE 5 MG TABLET PO (08:59)
[2021-04-20] MEDS: FERROUS SULFATE 324 MG TABLET PO ×2 (08:59→17:38)
[2021-04-20] MEDS: SENNA/DOCUSATE SODIUM TABLET 2 TAB PO ×2 (08:59→17:38)
[2021-04-20] MEDS: ZINC SULFATE 220 MG CAPSULE PO (09:00)
[2021-04-20] MEDS: HYDROcodone/acetaminophen (*CRX) 7.5-325 MG TABLET 1 TAB PO ×2 (09:00→21:25)
[2021-04-20] MEDS: CYANOCOBALAMIN 1,000 MCG TABLET 1000 MCG PO (09:01)
[2021-04-20] MEDS: DICLOFENAC SODIUM 1% 100 GM GEL (*BKC) 1 APPLIC TOPICAL ×3 (09:01→21:27)
[2021-04-20] MEDS: ASCORBIC ACID 500 MG TABLET PO (09:01)
[2021-04-20] MEDS: PANTOPRAZOLE SOD SESQUIHYDRATE 20 MG TAB PO (09:01)
[2021-04-20] MEDS: BRIMONIDINE TARTRATE 0.2% OP SOLN 5 ML BTL 1 DROP EACH EYE (09:02)
[2021-04-20 11:44] LABS: Glucose Point of Care 98 mg/dl (65-105)
[2021-04-20 16:00] VITALS: BP 90/64; PULSE 69; RESP 17; TEMP 36.4; O2SAT 97
--- NOTE | 2021-04-20 16:45 | PC.NURSE ---
Pt assisted with 2 staff members up to the bedside commode. Offered for pt to sit up in chair for dinner and he refused. Pt returned to bed.
[2021-04-20 16:59] LABS: Glucose Point of Care 96 mg/dl (65-105)
[2021-04-20 17:38] VITALS: PULSE 69
[2021-04-20] MEDS: LATANOPROST 0.005% OP SOLN 2.5 ML BTL 1 DROP EACH EYE (17:38)
[2021-04-20] MEDS: RIVAROXABAN 10 MG TABLET PO (17:38)
[2021-04-20] MEDS: TAMSULOSIN HCL 0.4 MG CAPSULE 0.8 MG PO (21:26)
[2021-04-20 21:38] LABS: Glucose Point of Care 92 mg/dl (65-105)
[2021-04-21] VITALS: BP 122/51; PULSE 66; RESP 18; TEMP 37.6; O2SAT 98
[2021-04-21 07:49] LABS: Glucose Point of Care 84 mg/dl (65-105)
[2021-04-21 07:59] VITALS: BP 131/83; PULSE 78; RESP 14; TEMP 36.9; O2SAT 96
[2021-04-21] MEDS: ASCORBIC ACID 500 MG TABLET PO (08:54)
[2021-04-21] MEDS: FERROUS SULFATE 324 MG TABLET PO ×2 (08:54→17:33)
[2021-04-21] MEDS: LORATADINE 5 MG TABLET PO (08:54)
[2021-04-21] MEDS: GABAPENTIN 400 MG CAPSULE 1200 MG PO ×2 (08:54→17:34)
[2021-04-21] MEDS: CYANOCOBALAMIN 1,000 MCG TABLET 1000 MCG PO (08:54)
[2021-04-21] MEDS: VITAMIN B COMPLEX CAPSULE 1 CAP PO (08:54)
[2021-04-21 08:55] VITALS: PULSE 74
[2021-04-21] MEDS: PANTOPRAZOLE SOD SESQUIHYDRATE 20 MG TAB PO (08:55)
[2021-04-21] MEDS: FUROSEMIDE 20 MG TABLET 60 MG PO (08:55)
[2021-04-21] MEDS: METOPROLOL TARTRATE 12.5 MG TABLET PO ×2 (08:55→17:35)
[2021-04-21] MEDS: ATORVASTATIN 10 MG TABLET 20 MG PO (08:55)
[2021-04-21] MEDS: SENNA/DOCUSATE SODIUM TABLET 2 TAB PO ×2 (08:56→17:34)
[2021-04-21] MEDS: ZINC SULFATE 220 MG CAPSULE PO (08:56)
[2021-04-21] MEDS: DOXAZOSIN MESYLATE 2 MG TABLET PO (08:56)
[2021-04-21] MEDS: metFORMIN HCL XR 500 MG TAB.SR.24H 1000 MG PO ×2 (08:56→17:34)
[2021-04-21] MEDS: GLIMEPIRIDE 2 MG TABLET PO (08:56)
[2021-04-21] MEDS: LIDOCAINE 5% PATCH 1 PATCH TRANSDERM (08:57)
[2021-04-21] MEDS: BRIMONIDINE TARTRATE 0.2% OP SOLN 5 ML BTL 1 DROP EACH EYE (08:59)
[2021-04-21] MEDS: DICLOFENAC SODIUM 1% 100 GM GEL (*BKC) 1 APPLIC TOPICAL ×3 (09:02→20:07)
[2021-04-21] MEDS: HYDROcodone/acetaminophen (*CRX) 7.5-325 MG TABLET 1 TAB PO ×2 (09:12→15:28)
[2021-04-21 11:54] LABS: Glucose Point of Care 104 mg/dl (65-105)
[2021-04-21] MEDS: traMADol HCL (*CRX) 25 MG TABLET PO ×2 (12:45→20:06)
[2021-04-21 16:00] VITALS: BP 118/75; PULSE 74; RESP 17; TEMP 37; O2SAT 99
[2021-04-21 16:58] LABS: Glucose Point of Care 78 mg/dl (65-105)
[2021-04-21 17:35] VITALS: PULSE 74
[2021-04-21] MEDS: LATANOPROST 0.005% OP SOLN 2.5 ML BTL 1 DROP EACH EYE (17:35)
[2021-04-21] MEDS: RIVAROXABAN 10 MG TABLET PO (17:37)
[2021-04-21] MEDS: TAMSULOSIN HCL 0.4 MG CAPSULE 0.8 MG PO (20:07)
[2021-04-21 20:19] LABS: Glucose Point of Care 132 mg/dl (65-105)
[2021-04-22] VITALS: BP 123/69; PULSE 80; RESP 18; TEMP 37; O2SAT 96
[2021-04-22] MEDS: HYDROcodone/acetaminophen (*CRX) 7.5-325 MG TABLET 1 TAB PO ×3 (05:16→18:22)
[2021-04-22 07:48] LABS: Glucose Point of Care 81 mg/dl (65-105)
[2021-04-22 07:57] VITALS: BP 125/65; PULSE 102; RESP 14; TEMP 36.4; O2SAT 96
[2021-04-22 08:01] VITALS: BP 125/65; PULSE 77; RESP 14; TEMP 36; O2SAT 98
[2021-04-22] MEDS: FERROUS SULFATE 324 MG TABLET PO ×2 (08:02→18:17)
[2021-04-22 09:00] VITALS: PULSE 77
[2021-04-22] MEDS: METOPROLOL TARTRATE 12.5 MG TABLET PO ×2 (09:00→18:18)
[2021-04-22] MEDS: metFORMIN HCL XR 500 MG TAB.SR.24H 1000 MG PO ×2 (09:00→18:17)
[2021-04-22] MEDS: LORATADINE 5 MG TABLET PO (09:00)
[2021-04-22] MEDS: ZINC SULFATE 220 MG CAPSULE PO (09:00)
[2021-04-22] MEDS: PANTOPRAZOLE SOD SESQUIHYDRATE 20 MG TAB PO (09:01)
[2021-04-22] MEDS: VITAMIN B COMPLEX CAPSULE 1 CAP PO (09:01)
[2021-04-22] MEDS: CYANOCOBALAMIN 1,000 MCG TABLET 1000 MCG PO (09:01)
[2021-04-22] MEDS: ATORVASTATIN 10 MG TABLET 20 MG PO (09:01)
[2021-04-22] MEDS: DOXAZOSIN MESYLATE 2 MG TABLET PO (09:02)
[2021-04-22] MEDS: GABAPENTIN 400 MG CAPSULE 1200 MG PO ×2 (09:02→18:17)
[2021-04-22] MEDS: GLIMEPIRIDE 2 MG TABLET PO (09:02)
[2021-04-22] MEDS: FUROSEMIDE 20 MG TABLET 60 MG PO (09:03)
[2021-04-22] MEDS: ASCORBIC ACID 500 MG TABLET PO (09:03)
[2021-04-22] MEDS: SENNA/DOCUSATE SODIUM TABLET 2 TAB PO ×2 (09:03→18:16)
[2021-04-22] MEDS: BRIMONIDINE TARTRATE 0.2% OP SOLN 5 ML BTL 1 DROP EACH EYE (09:04)
[2021-04-22] MEDS: traMADol HCL (*CRX) 25 MG TABLET PO (09:23)
[2021-04-22] MEDS: DICLOFENAC SODIUM 1% 100 GM GEL (*BKC) 1 APPLIC TOPICAL ×4 (09:59→21:05)
[2021-04-22] MEDS: LIDOCAINE 5% PATCH 1 PATCH TRANSDERM (09:59)
[2021-04-22 12:04] LABS: Glucose Point of Care 92 mg/dl (65-105)
[2021-04-22 16:00] VITALS: BP 104/71; PULSE 73; RESP 18; TEMP 36.7; O2SAT 97
[2021-04-22 16:44] LABS: Glucose Point of Care 104 mg/dl (65-105)
[2021-04-22 18:18] VITALS: PULSE 73
[2021-04-22] MEDS: RIVAROXABAN 10 MG TABLET PO (18:18)
[2021-04-22] MEDS: LATANOPROST 0.005% OP SOLN 2.5 ML BTL 1 DROP EACH EYE (18:19)
[2021-04-22] MEDS: TAMSULOSIN HCL 0.4 MG CAPSULE 0.8 MG PO (21:04)
[2021-04-22 21:10] LABS: Glucose Point of Care 76 mg/dl (65-105)
[2021-04-23] VITALS: BP 104/72; PULSE 70; RESP 18; TEMP 37; O2SAT 96
[2021-04-23] MEDS: HYDROcodone/acetaminophen (*CRX) 7.5-325 MG TABLET 1 TAB PO ×4 (01:28→22:41)
[2021-04-23 08:00] VITALS: BP 118/74; PULSE 80; RESP 20; TEMP 36.6; O2SAT 99
[2021-04-23 08:12] LABS: Glucose Point of Care 92 mg/dl (65-105)
[2021-04-23] MEDS: LIDOCAINE 5% PATCH 1 PATCH TRANSDERM (08:31)
[2021-04-23] MEDS: BRIMONIDINE TARTRATE 0.2% OP SOLN 5 ML BTL 1 DROP EACH EYE (08:31)
[2021-04-23] MEDS: DICLOFENAC SODIUM 1% 100 GM GEL (*BKC) 1 APPLIC TOPICAL ×4 (08:31→21:55)
[2021-04-23 08:32] VITALS: PULSE 64
[2021-04-23] MEDS: metFORMIN HCL XR 500 MG TAB.SR.24H 1000 MG PO ×2 (08:32→16:50)
[2021-04-23] MEDS: METOPROLOL TARTRATE 12.5 MG TABLET PO ×2 (08:32→16:51)
[2021-04-23] MEDS: VITAMIN B COMPLEX CAPSULE 1 CAP PO (08:33)
[2021-04-23] MEDS: LORATADINE 5 MG TABLET PO (08:33)
[2021-04-23] MEDS: PANTOPRAZOLE SOD SESQUIHYDRATE 20 MG TAB PO (08:33)
[2021-04-23] MEDS: GABAPENTIN 400 MG CAPSULE 1200 MG PO ×2 (08:33→16:49)
[2021-04-23] MEDS: DOXAZOSIN MESYLATE 2 MG TABLET PO (08:33)
[2021-04-23] MEDS: SENNA/DOCUSATE SODIUM TABLET 2 TAB PO ×2 (08:33→16:50)
[2021-04-23] MEDS: ATORVASTATIN 10 MG TABLET 20 MG PO (08:34)
[2021-04-23] MEDS: CYANOCOBALAMIN 1,000 MCG TABLET 1000 MCG PO (08:34)
[2021-04-23] MEDS: FERROUS SULFATE 324 MG TABLET PO ×2 (08:34→16:49)
[2021-04-23] MEDS: FUROSEMIDE 20 MG TABLET 60 MG PO (08:34)
[2021-04-23] MEDS: GLIMEPIRIDE 2 MG TABLET PO (08:35)
[2021-04-23] MEDS: ASCORBIC ACID 500 MG TABLET PO (08:35)
[2021-04-23] MEDS: ZINC SULFATE 220 MG CAPSULE PO (08:37)
[2021-04-23 15:57] VITALS: BP 136/78; PULSE 75; RESP 18; TEMP 37.1; O2SAT 99
[2021-04-23 16:51] VITALS: PULSE 75
[2021-04-23] MEDS: RIVAROXABAN 10 MG TABLET PO (16:51)
[2021-04-23] MEDS: LATANOPROST 0.005% OP SOLN 2.5 ML BTL 1 DROP EACH EYE (16:51)
--- NOTE | 2021-04-23 18:24 | PC.NURSE ---
pt requests stool soft be held in am, pt had med liq stool in bed, fresh gown and pad, new depend applied
[2021-04-23] MEDS: TAMSULOSIN HCL 0.4 MG CAPSULE 0.8 MG PO (21:54)
[2021-04-24] VITALS: BP 135/76; PULSE 78; RESP 16; TEMP 37; O2SAT 95
[2021-04-24] MEDS: traMADol HCL (*CRX) 25 MG TABLET PO (00:53)
[2021-04-24] MEDS: traZODone HCL 50 MG TABLET PO ×2 (00:54→20:22)
[2021-04-24 08:00] VITALS: BP 122/73; PULSE 84; RESP 20; TEMP 36.9; O2SAT 96
[2021-04-24] MEDS: VITAMIN B COMPLEX CAPSULE 1 CAP PO (08:45)
[2021-04-24] MEDS: DICLOFENAC SODIUM 1% 100 GM GEL (*BKC) 1 APPLIC TOPICAL ×4 (08:45→20:21)
[2021-04-24] MEDS: LORATADINE 5 MG TABLET PO (08:46)
[2021-04-24] MEDS: GLIMEPIRIDE 2 MG TABLET PO (08:46)
[2021-04-24] MEDS: PANTOPRAZOLE SOD SESQUIHYDRATE 20 MG TAB PO (08:46)
[2021-04-24] MEDS: HYDROcodone/acetaminophen (*CRX) 7.5-325 MG TABLET 1 TAB PO ×2 (08:47→17:06)
[2021-04-24] MEDS: metFORMIN HCL XR 500 MG TAB.SR.24H 1000 MG PO ×2 (08:47→17:04)
[2021-04-24] MEDS: FUROSEMIDE 20 MG TABLET 60 MG PO (08:48)
[2021-04-24] MEDS: ZINC SULFATE 220 MG CAPSULE PO (08:48)
[2021-04-24] MEDS: DOXAZOSIN MESYLATE 2 MG TABLET PO (08:48)
[2021-04-24] MEDS: ATORVASTATIN 10 MG TABLET 20 MG PO (08:49)
[2021-04-24 08:50] VITALS: PULSE 86
[2021-04-24] MEDS: METOPROLOL TARTRATE 12.5 MG TABLET PO ×2 (08:50→17:05)
[2021-04-24] MEDS: BRIMONIDINE TARTRATE 0.2% OP SOLN 5 ML BTL 1 DROP EACH EYE (08:50)
[2021-04-24] MEDS: CYANOCOBALAMIN 1,000 MCG TABLET 1000 MCG PO (08:50)
[2021-04-24] MEDS: FERROUS SULFATE 324 MG TABLET PO ×2 (08:50→17:04)
[2021-04-24] MEDS: LIDOCAINE 5% PATCH 1 PATCH TRANSDERM (08:51)
[2021-04-24] MEDS: ASCORBIC ACID 500 MG TABLET PO (08:52)
[2021-04-24] MEDS: GABAPENTIN 400 MG CAPSULE 1200 MG PO ×2 (08:53→17:04)
[2021-04-24 16:00] VITALS: BP 112/65; PULSE 88; RESP 20; TEMP 36.9; O2SAT 96
[2021-04-24] MEDS: LATANOPROST 0.005% OP SOLN 2.5 ML BTL 1 DROP EACH EYE (17:04)
[2021-04-24] MEDS: RIVAROXABAN 10 MG TABLET PO (17:04)
[2021-04-24 17:05] VITALS: PULSE 88
[2021-04-24] MEDS: TAMSULOSIN HCL 0.4 MG CAPSULE 0.8 MG PO (20:15)
[2021-04-25] VITALS: BP 119/75; PULSE 73; RESP 20; TEMP 36.3; O2SAT 97
[2021-04-25 08:00] VITALS: BP 105/69; PULSE 80; RESP 18; TEMP 36.8; O2SAT 100
[2021-04-25] MEDS: LIDOCAINE 5% PATCH 1 PATCH TRANSDERM (08:28)
[2021-04-25] MEDS: VITAMIN B COMPLEX CAPSULE 1 CAP PO (08:29)
[2021-04-25] MEDS: CYANOCOBALAMIN 1,000 MCG TABLET 1000 MCG PO (08:29)
[2021-04-25] MEDS: metFORMIN HCL XR 500 MG TAB.SR.24H 1000 MG PO ×2 (08:29→17:16)
[2021-04-25] MEDS: PANTOPRAZOLE SOD SESQUIHYDRATE 20 MG TAB PO (08:29)
[2021-04-25] MEDS: GABAPENTIN 400 MG CAPSULE 1200 MG PO ×2 (08:29→17:14)
[2021-04-25] MEDS: ATORVASTATIN 10 MG TABLET 20 MG PO (08:29)
[2021-04-25] MEDS: FUROSEMIDE 20 MG TABLET 60 MG PO (08:29)
[2021-04-25] MEDS: BRIMONIDINE TARTRATE 0.2% OP SOLN 5 ML BTL 1 DROP EACH EYE (08:30)
[2021-04-25] MEDS: DICLOFENAC SODIUM 1% 100 GM GEL (*BKC) 1 APPLIC TOPICAL ×4 (08:30→20:57)
[2021-04-25] MEDS: GLIMEPIRIDE 2 MG TABLET PO (08:30)
[2021-04-25] MEDS: FERROUS SULFATE 324 MG TABLET PO ×2 (08:30→17:14)
[2021-04-25] MEDS: ASCORBIC ACID 500 MG TABLET PO (08:30)
[2021-04-25 08:31] VITALS: PULSE 80
[2021-04-25] MEDS: ZINC SULFATE 220 MG CAPSULE PO (08:31)
[2021-04-25] MEDS: LORATADINE 5 MG TABLET PO (08:31)
[2021-04-25] MEDS: METOPROLOL TARTRATE 12.5 MG TABLET PO ×2 (08:31→17:16)
[2021-04-25] MEDS: DOXAZOSIN MESYLATE 2 MG TABLET PO (08:35)
[2021-04-25] MEDS: HYDROcodone/acetaminophen (*CRX) 7.5-325 MG TABLET 1 TAB PO ×2 (08:36→15:26)
--- NOTE | 2021-04-25 09:39 | P.PN_ITS ---
Progress Note: A&P Assessment and Plan (1) Weakness: Code(s): R53.1 - Weakness Status: Acute Assessment and Plan: ? Exhibit tolerance during physical activity as evidenced by a normal fluctuation of vital signs during physical activity. ? Patient will be ability to perform required activities of daily living. ? Provide appropriate nutrition for healing and strength. ? Use appropriate to prevent falls. ? Continue physical therapy/occupational therapy. will schedule pain medication so patient can work with therapy (2) Orthostatic hypotension: Onset Date: 04/17/21 Code(s): I95.1 - Orthostatic hypotension Status: Acute Assessment and Plan: * will monitored * instructed patient to stand up slowly * continue faheem hose (3) Femur fracture, right: Onset Date: 04/11/21 Qualifiers: Encounter type: initial encounter Code(s): S72.91XA - Unspecified fracture of right femur, initial encounter for closed fracture Status: Acute Assessment and Plan: * s/p INSERTION GAMMA CASS RIGHT HIP on 04/12/2021 * WBAT * continue DRS change * Cont pain management * Leslie to be removed on the 14th day after surgery. * Contact orthopedic office for a 6 week f/u appointment at [phone] * Continue Xarelto for 28 days * Will schedule pain medication in the am so he can work with physical therapy (4) Right-sided heart failure: Onset Date: Unknown Qualifiers: Heart failure chronicity: chronic Qualified Code(s): I50.812 - Chronic right heart failure Code(s): I50.810 - Right heart failure, unspecified Status: Chronic Assessment and Plan: * Compensated * Continue Lasix 20 mg daily * Elian Wheeler MD [Physician] bingo caller- 1 Week (5) BPH with obstruction/lower urinary tract symptoms: Onset Date: Unknown Code(s): N40.1 - Benign prostatic hyperplasia with lower urinary tract symptoms; N13.8 - Other obstructive and reflux uropathy Status: Chronic Assessment and Plan: * cont tamsulosin (6) Diabetes type 2, controlled: Onset Date: Unknown Qualifiers: Diabetes mellitus long chain beamer insulin use: without assisted use Diabetes mellitus complication status: with diabetic arthropathy Code(s): E11.9 - Type 2 diabetes mellitus without complications Status: Acute Assessment and Plan: * stable * a1c 5.0 04/12/2021 * Continue Accu-Chek with sliding scale hypoglycemic protocol * (7) Hypertension: Qualifiers: Hypertension type: primary hypertension Qualified Code(s): I10 - Essential (primary) hypertension Code(s): I10 - Essential (primary) hypertension Status: Chronic Assessment and Plan: * Slightly elevated, slightly secondary to pain will manage pain better * Continue metoprolol 12.5 * Vital signs as ordered * Will adjust medication as needed (8) GERD (gastroesophageal reflux disease): Onset Date: Unknown Qualifiers: Esophagitis presence: without esophagitis Qualified Code(s): K21.9 - Gastro-esophageal reflux disease without esophagitis Code(s): K21.9 - Gastro-esophageal reflux disease without esophagitis Status: Chronic Assessment and Plan: * Continue Protonix (9) Chronic pain: Code(s): G89.29 - Other chronic pain Status: Acute Assessment and Plan: * Continue Tylenol, tramadol, [place], lidocaine patch and diclofenac per order * Will adjust medication as needed (10) Hyperlipidemi
--- NOTE | 2021-04-25 09:39 | WPDPN ---
Progress Note: A&P Assessment and Plan (1) Weakness: Code(s): R53.1 - Weakness Status: Acute Assessment and Plan: ? Exhibit tolerance during physical activity as evidenced by a normal fluctuation of vital signs during physical activity. ? Patient will be ability to perform required activities of daily living. ? Provide appropriate nutrition for healing and strength. ? Use appropriate to prevent falls. ? Continue physical therapy/occupational therapy. will schedule pain medication so patient can work with therapy (2) Orthostatic hypotension: Onset Date: 04/17/21 Code(s): I95.1 - Orthostatic hypotension Status: Acute Assessment and Plan: will monitored instructed patient to stand up slowly continue faheem hose (3) Femur fracture, right: Onset Date: 04/11/21 Qualifiers: Encounter type: initial encounter Code(s): S72.91XA - Unspecified fracture of right femur, initial encounter for closed fracture Status: Acute Assessment and Plan: s/p INSERTION GAMMA CASS RIGHT HIP on 04/12/2021 WBAT continue DRS change Cont pain management [place] to be removed on the 14th day after surgery. Contact orthopedic office for a 6 week f/u appointment at [phone] Continue Xarelto for 28 days Will schedule pain medication in the am so he can work with physical therapy (4) Right-sided heart failure: Onset Date: Unknown Qualifiers: Heart failure chronicity: chronic Qualified Code(s): I50.812 - Chronic right heart failure Code(s): I50.810 - Right heart failure, unspecified Status: Chronic Assessment and Plan: Compensated Continue Lasix 20 mg daily Elian Wheeler MD [Physician] debt management counselor- 1 Week (5) BPH with obstruction/lower urinary tract symptoms: Onset Date: Unknown Code(s): N40.1 - Benign prostatic hyperplasia with lower urinary tract symptoms; N13.8 - Other obstructive and reflux uropathy Status: Chronic Assessment and Plan: cont tamsulosin (6) Diabetes type 2, controlled: Onset Date: Unknown Qualifiers: Diabetes mellitus detention insulin use: without radiological engineer use Diabetes mellitus complication status: with diabetic arthropathy Code(s): E11.9 - Type 2 diabetes mellitus without complications Status: Acute Assessment and Plan: stable a1c 5.0 04/12/2021 Continue Accu-Chek with sliding scale hypoglycemic protocol (7) Hypertension: Qualifiers: Hypertension type: primary hypertension Qualified Code(s): I10 - Essential (primary) hypertension Code(s): I10 - Essential (primary) hypertension Status: Chronic Assessment and Plan: Slightly elevated, slightly secondary to pain will manage pain better Continue metoprolol 12.5 Vital signs as ordered Will adjust medication as needed (8) GERD (gastroesophageal reflux disease): Onset Date: Unknown Qualifiers: Esophagitis presence: without esophagitis Qualified Code(s): K21.9 - Gastro-esophageal reflux disease without esophagitis Code(s): K21.9 - Gastro-esophageal reflux disease without esophagitis Status: Chronic Assessment and Plan: Continue Protonix (9) Chronic pain: Code(s): G89.29 - Other chronic pain Status: Acute Assessment and Plan: Continue Tylenol, tramadol, [place], lidocaine patch and diclofenac per order Will adjust medication as needed (10) Hyperlipidemia: Onset Date: Unknown Qualifiers: Hyperlipidemia type: mixed hyperlipidemia Qualified Code(s): E78.2 - Mixed hyperlipidemia Code(s): E78.5 - Hyperlipidemia, unspecified Status: Chronic Assessment and Plan: Continue atorvastatin Subjective Date/time seen: 04/25/21 09:39 Patient got up with therapy today stating that his pain is horrible and that he is not getting any pain medication. Af
--- NOTE | 2021-04-25 11:15 | PC.NURSE ---
Pt requested to go back to bed. Encouraged position change in chair, but pt declined. Pt returned to bed with assist of one, wheeled walker and gait belt.
[2021-04-25] MEDS: traMADol HCL (*CRX) 25 MG TABLET PO ×2 (13:47→20:50)
[2021-04-25 16:00] VITALS: BP 120/84; PULSE 80; RESP 17; TEMP 35.8; O2SAT 98
[2021-04-25] MEDS: SENNA/DOCUSATE SODIUM TABLET 2 TAB PO (17:14)
[2021-04-25 17:16] VITALS: PULSE 80
[2021-04-25] MEDS: LATANOPROST 0.005% OP SOLN 2.5 ML BTL 1 DROP EACH EYE (17:16)
[2021-04-25] MEDS: RIVAROXABAN 10 MG TABLET PO (17:17)
[2021-04-25] MEDS: TAMSULOSIN HCL 0.4 MG CAPSULE 0.8 MG PO (20:49)
[2021-04-25] MEDS: traZODone HCL 50 MG TABLET PO (20:49)
[2021-04-26] VITALS: BP 129/79; PULSE 79; RESP 14; TEMP 36.4; O2SAT 97
[2021-04-26] MEDS: HYDROcodone/acetaminophen (*CRX) 5-325 MG TABLET 1 TAB PO (06:04)
[2021-04-26 08:00] VITALS: BP 106/64; PULSE 63; RESP 18; TEMP 36.5; O2SAT 100
[2021-04-26 08:29] VITALS: PULSE 80
[2021-04-26] MEDS: METOPROLOL TARTRATE 12.5 MG TABLET PO ×2 (08:29→17:24)
[2021-04-26] MEDS: CYANOCOBALAMIN 1,000 MCG TABLET 1000 MCG PO (08:29)
[2021-04-26] MEDS: DICLOFENAC SODIUM 1% 100 GM GEL (*BKC) 1 APPLIC TOPICAL ×3 (08:29→20:14)
[2021-04-26] MEDS: BRIMONIDINE TARTRATE 0.2% OP SOLN 5 ML BTL 1 DROP EACH EYE (08:29)
[2021-04-26] MEDS: ZINC SULFATE 220 MG CAPSULE PO (08:29)
[2021-04-26] MEDS: LORATADINE 5 MG TABLET PO (08:29)
[2021-04-26] MEDS: FUROSEMIDE 20 MG TABLET 60 MG PO (08:30)
[2021-04-26] MEDS: PANTOPRAZOLE SOD SESQUIHYDRATE 20 MG TAB PO (08:30)
[2021-04-26] MEDS: FERROUS SULFATE 324 MG TABLET PO ×2 (08:30→17:24)
[2021-04-26] MEDS: VITAMIN B COMPLEX CAPSULE 1 CAP PO (08:30)
[2021-04-26] MEDS: ATORVASTATIN 10 MG TABLET 20 MG PO (08:30)
[2021-04-26] MEDS: DOXAZOSIN MESYLATE 2 MG TABLET PO (08:31)
[2021-04-26] MEDS: ASCORBIC ACID 500 MG TABLET PO (08:31)
[2021-04-26] MEDS: GLIMEPIRIDE 2 MG TABLET PO (08:31)
[2021-04-26] MEDS: metFORMIN HCL XR 500 MG TAB.SR.24H 1000 MG PO ×2 (08:31→17:23)
[2021-04-26] MEDS: GABAPENTIN 400 MG CAPSULE 1200 MG PO ×2 (08:31→17:24)
[2021-04-26] MEDS: LIDOCAINE 5% PATCH 1 PATCH TRANSDERM (08:31)
[2021-04-26] MEDS: HYDROcodone/acetaminophen (*CRX) 7.5-325 MG TABLET 1 TAB PO ×3 (13:13→20:01)
[2021-04-26 16:00] VITALS: BP 120/77; PULSE 70; RESP 18; TEMP 36.9; O2SAT 100
[2021-04-26 17:24] VITALS: PULSE 80
[2021-04-26] MEDS: SENNA/DOCUSATE SODIUM TABLET 2 TAB PO (17:24)
[2021-04-26] MEDS: RIVAROXABAN 10 MG TABLET PO (17:24)
[2021-04-26] MEDS: LATANOPROST 0.005% OP SOLN 2.5 ML BTL 1 DROP EACH EYE (17:25)
[2021-04-26] MEDS: traMADol HCL (*CRX) 25 MG TABLET PO (17:45)
[2021-04-26] MEDS: TAMSULOSIN HCL 0.4 MG CAPSULE 0.8 MG PO (20:01)
[2021-04-27] VITALS: BP 144/72; PULSE 77; RESP 18; TEMP 36.8; O2SAT 98
[2021-04-27] MEDS: HYDROcodone/acetaminophen (*CRX) 5-325 MG TABLET 1 TAB PO (06:29)
[2021-04-27 07:44] VITALS: BP 122/70; PULSE 68; RESP 18; TEMP 37.1; O2SAT 97
[2021-04-27] MEDS: FERROUS SULFATE 324 MG TABLET PO ×2 (08:07→17:09)
[2021-04-27] MEDS: metFORMIN HCL XR 500 MG TAB.SR.24H 1000 MG PO ×2 (08:07→17:10)
[2021-04-27] MEDS: GABAPENTIN 400 MG CAPSULE 1200 MG PO ×2 (08:08→17:09)
[2021-04-27] MEDS: ATORVASTATIN 10 MG TABLET 20 MG PO (08:08)
[2021-04-27] MEDS: FUROSEMIDE 20 MG TABLET 60 MG PO (08:09)
[2021-04-27] MEDS: DOXAZOSIN MESYLATE 2 MG TABLET PO (08:09)
[2021-04-27] MEDS: GLIMEPIRIDE 2 MG TABLET PO (08:10)
[2021-04-27] MEDS: ASCORBIC ACID 500 MG TABLET PO (08:11)
[2021-04-27] MEDS: CYANOCOBALAMIN 1,000 MCG TABLET 1000 MCG PO (08:11)
[2021-04-27] MEDS: VITAMIN B COMPLEX CAPSULE 1 CAP PO (08:11)
[2021-04-27 08:12] VITALS: PULSE 68
[2021-04-27] MEDS: METOPROLOL TARTRATE 12.5 MG TABLET PO ×2 (08:12→17:11)
[2021-04-27] MEDS: PANTOPRAZOLE SOD SESQUIHYDRATE 20 MG TAB PO (08:12)
[2021-04-27] MEDS: LORATADINE 5 MG TABLET PO (08:13)
[2021-04-27] MEDS: LIDOCAINE 5% PATCH 1 PATCH TRANSDERM (08:13)
[2021-04-27] MEDS: DICLOFENAC SODIUM 1% 100 GM GEL (*BKC) 1 APPLIC TOPICAL ×4 (08:14→21:13)
[2021-04-27] MEDS: ZINC SULFATE 220 MG CAPSULE PO (08:14)
[2021-04-27] MEDS: BRIMONIDINE TARTRATE 0.2% OP SOLN 5 ML BTL 1 DROP EACH EYE (08:14)
[2021-04-27] MEDS: traMADol HCL (*CRX) 25 MG TABLET PO ×2 (11:12→21:16)
[2021-04-27 16:00] VITALS: BP 137/81; PULSE 82; RESP 16; TEMP 36.9; O2SAT 98
[2021-04-27] MEDS: HYDROcodone/acetaminophen (*CRX) 7.5-325 MG TABLET 1 TAB PO (17:10)
[2021-04-27 17:11] VITALS: PULSE 82
[2021-04-27] MEDS: RIVAROXABAN 10 MG TABLET PO (17:11)
[2021-04-27] MEDS: LATANOPROST 0.005% OP SOLN 2.5 ML BTL 1 DROP EACH EYE (17:12)
[2021-04-27] MEDS: traZODone HCL 50 MG TABLET PO (21:11)
[2021-04-27] MEDS: TAMSULOSIN HCL 0.4 MG CAPSULE 0.8 MG PO (21:11)
[2021-04-28] VITALS: BP 119/72; PULSE 72; RESP 18; TEMP 37.1; O2SAT 93
[2021-04-28] MEDS: HYDROcodone/acetaminophen (*CRX) 7.5-325 MG TABLET 1 TAB PO ×3 (03:20→20:02)
[2021-04-28] MEDS: HYDROcodone/acetaminophen (*CRX) 5-325 MG TABLET 1 TAB PO (06:57)
[2021-04-28 08:00] VITALS: BP 135/70; PULSE 70; RESP 16; TEMP 36.9; O2SAT 94
[2021-04-28] MEDS: FERROUS SULFATE 324 MG TABLET PO ×2 (08:31→17:34)
[2021-04-28] MEDS: LIDOCAINE 5% PATCH 1 PATCH TRANSDERM (08:31)
[2021-04-28] MEDS: CYANOCOBALAMIN 1,000 MCG TABLET 1000 MCG PO (08:32)
[2021-04-28] MEDS: GLIMEPIRIDE 2 MG TABLET PO (08:33)
[2021-04-28] MEDS: VITAMIN B COMPLEX CAPSULE 1 CAP PO (08:33)
[2021-04-28] MEDS: GABAPENTIN 400 MG CAPSULE 1200 MG PO ×2 (08:33→17:33)
[2021-04-28] MEDS: ASCORBIC ACID 500 MG TABLET PO (08:33)
[2021-04-28] MEDS: PANTOPRAZOLE SOD SESQUIHYDRATE 20 MG TAB PO (08:34)
[2021-04-28] MEDS: metFORMIN HCL XR 500 MG TAB.SR.24H 1000 MG PO ×2 (08:34→17:33)
[2021-04-28] MEDS: FUROSEMIDE 20 MG TABLET 60 MG PO (08:35)
[2021-04-28] MEDS: ATORVASTATIN 10 MG TABLET 20 MG PO (08:35)
[2021-04-28] MEDS: DOXAZOSIN MESYLATE 2 MG TABLET PO (08:35)
[2021-04-28 08:36] VITALS: PULSE 70
[2021-04-28] MEDS: METOPROLOL TARTRATE 12.5 MG TABLET PO ×2 (08:36→17:34)
[2021-04-28] MEDS: LORATADINE 5 MG TABLET PO (08:36)
[2021-04-28] MEDS: BRIMONIDINE TARTRATE 0.2% OP SOLN 5 ML BTL 1 DROP EACH EYE (08:37)
[2021-04-28] MEDS: ZINC SULFATE 220 MG CAPSULE PO (08:37)
[2021-04-28] MEDS: DICLOFENAC SODIUM 1% 100 GM GEL (*BKC) 1 APPLIC TOPICAL ×3 (08:37→20:02)
[2021-04-28] MEDS: traMADol HCL (*CRX) 25 MG TABLET PO (11:42)
[2021-04-28 16:00] VITALS: BP 127/78; PULSE 80; RESP 16; TEMP 36.8; O2SAT 95
[2021-04-28 17:34] VITALS: PULSE 80
[2021-04-28] MEDS: LATANOPROST 0.005% OP SOLN 2.5 ML BTL 1 DROP EACH EYE (17:34)
[2021-04-28] MEDS: RIVAROXABAN 10 MG TABLET PO (17:34)
[2021-04-28] MEDS: TAMSULOSIN HCL 0.4 MG CAPSULE 0.8 MG PO (20:01)
[2021-04-28] MEDS: traZODone HCL 50 MG TABLET PO (20:04)
[2021-04-29] VITALS: BP 113/65; PULSE 75; RESP 16; TEMP 36.9; O2SAT 94
[2021-04-29] MEDS: traMADol HCL (*CRX) 25 MG TABLET PO ×2 (00:34→21:10)
[2021-04-29 05:24] LABS: Hematocrit 29.4 % (37.0-46.0); Hemoglobin 9.7 g/dL (12.4-15.3); Mean Corpuscular Hemoglobin 29.5 pg (27.0-31.0); Mean Corpuscular Volume 89.4 fL (78.0-102.0); Mean Platelet Volume 10.2 fl (8.7-11.0); Platelet Count Result 197 K/mm3 (150-420); Red Blood Count 3.29 M/mm3 (4.70-6.10); Red Cell Distribution Width 13.3 % (11.6-14.4); White Blood Count 5.5 K/mm3 (4.8-10.8)
[2021-04-29 05:35] LABS: Anion Gap 11 mmol/L (8-16); Blood Urea Nitrogen 47 mg/dL (7-18); Calcium 8.6 mg/dL (8.5-10.1); Carbon Dioxide 27 mmol/L (21-32); Chloride 104 mmol/L (98-108); Estimated CRCL calculation 37 ml/min; Estimated Glomerular Filt Rate 37; Glucose 76 mg/dL (70-99); Osmolality Calculated 305 mOsm/kg (285-295); Potassium 3.9 mmol/L (3.5-5.1); Sodium 142 mmol/L (136-145)
[2021-04-29] MEDS: HYDROcodone/acetaminophen (*CRX) 5-325 MG TABLET 1 TAB PO (06:24)
[2021-04-29 07:50] VITALS: BP 101/67; PULSE 77; RESP 18; TEMP 36.7; O2SAT 97
[2021-04-29 08:59] VITALS: PULSE 77
[2021-04-29] MEDS: LORATADINE 5 MG TABLET PO (08:59)
[2021-04-29] MEDS: METOPROLOL TARTRATE 12.5 MG TABLET PO ×2 (08:59→16:58)
[2021-04-29] MEDS: ZINC SULFATE 220 MG CAPSULE PO (09:00)
[2021-04-29] MEDS: ATORVASTATIN 10 MG TABLET 20 MG PO (09:00)
[2021-04-29] MEDS: PANTOPRAZOLE SOD SESQUIHYDRATE 20 MG TAB PO (09:02)
[2021-04-29] MEDS: ASCORBIC ACID 500 MG TABLET PO (09:02)
[2021-04-29] MEDS: DOXAZOSIN MESYLATE 2 MG TABLET PO (09:02)
[2021-04-29] MEDS: GLIMEPIRIDE 2 MG TABLET PO (09:02)
[2021-04-29] MEDS: FUROSEMIDE 20 MG TABLET 60 MG PO (09:02)
[2021-04-29] MEDS: GABAPENTIN 400 MG CAPSULE 1200 MG PO ×2 (09:03→16:58)
[2021-04-29] MEDS: metFORMIN HCL XR 500 MG TAB.SR.24H 1000 MG PO ×2 (09:03→16:58)
[2021-04-29] MEDS: CYANOCOBALAMIN 1,000 MCG TABLET 1000 MCG PO (09:03)
[2021-04-29] MEDS: VITAMIN B COMPLEX CAPSULE 1 CAP PO (09:03)
[2021-04-29] MEDS: DICLOFENAC SODIUM 1% 100 GM GEL (*BKC) 1 APPLIC TOPICAL ×4 (09:04→21:10)
[2021-04-29] MEDS: BRIMONIDINE TARTRATE 0.2% OP SOLN 5 ML BTL 1 DROP EACH EYE (09:04)
[2021-04-29] MEDS: FERROUS SULFATE 324 MG TABLET PO ×2 (09:04→16:59)
[2021-04-29] MEDS: LIDOCAINE 5% PATCH 1 PATCH TRANSDERM (09:05)
[2021-04-29] MEDS: HYDROcodone/acetaminophen (*CRX) 7.5-325 MG TABLET 1 TAB PO ×2 (09:08→17:04)
--- NOTE | 2021-04-29 11:34 | P.PNIM_ITS ---
Progress Note: A&P Assessment and Plan (1) Weakness: Code(s): R53.1 - Weakness Status: Acute Assessment and Plan: ? Exhibit tolerance during physical activity as evidenced by a normal fluctuation of vital signs during physical activity. ? Patient will be ability to perform required activities of daily living. ? Provide appropriate nutrition for healing and strength. ? Use appropriate to prevent falls. ? Continue physical therapy/occupational therapy. will schedule pain medication so patient can work with therapy Pain medication has helped patient is moving a lot better (2) Orthostatic hypotension: Onset Date: 04/17/21 Code(s): I95.1 - Orthostatic hypotension Status: Acute Assessment and Plan: * will monitored * instructed patient to stand up slowly * continue faheem hose (3) Femur fracture, right: Onset Date: 04/11/21 Qualifiers: Encounter type: initial encounter Code(s): S72.91XA - Unspecified fracture of right femur, initial encounter for closed fracture Status: Acute Assessment and Plan: * s/p INSERTION GAMMA CASS RIGHT HIP on 04/12/2021 * WBAT * continue DRS change * Cont pain management * [place] to be removed on the 14th day after surgery. [place] were removed last week * Contact orthopedic office for a 6 week f/u appointment at [phone] * Continue Xarelto for 28 days * Will schedule pain medication in the am so he can work with physical therapy (4) Right-sided heart failure: Onset Date: Unknown Qualifiers: Heart failure chronicity: chronic Qualified Code(s): I50.812 - Chronic right heart failure Code(s): I50.810 - Right heart failure, unspecified Status: Chronic Assessment and Plan: * Compensated * Continue Lasix 20 mg daily * Elian Wheeler MD [Physician] manager materials management- 1 Week (5) BPH with obstruction/lower urinary tract symptoms: Onset Date: Unknown Code(s): N40.1 - Benign prostatic hyperplasia with lower urinary tract symptoms; N13.8 - Other obstructive and reflux uropathy Status: Chronic Assessment and Plan: * cont tamsulosin (6) Diabetes type 2, controlled: Onset Date: Unknown Qualifiers: Diabetes mellitus fdc insulin use: without joint terminal attack controller use Diabetes mellitus complication status: with diabetic arthropathy Code(s): E11.9 - Type 2 diabetes mellitus without complications Status: Acute Assessment and Plan: * stable * a1c 5.0 04/12/2021 * Continue Accu-Chek with sliding scale hypoglycemic protocol * (7) Hypertension: Qualifiers: Hypertension type: primary hypertension Qualified Code(s): I10 - Essential (primary) hypertension Code(s): I10 - Essential (primary) hypertension Status: Chronic Assessment and Plan: * Slightly elevated, slightly secondary to pain will manage pain better * Continue metoprolol 12.5 * Vital signs as ordered * Will adjust medication as needed (8) GERD (gastroesophageal reflux disease): Onset Date: Unknown Qualifiers: Esophagitis presence: without esophagitis Qualified Code(s): K21.9 - Gastro-esophageal reflux disease without esophagitis Code(s): K21.9 - Gastro-esophageal reflux disease without esophagitis Status: Chronic Assessment and Plan: * Continue Protonix (9) Chronic pain: Code(s): G89.29 - Other chronic pain Status: Acute Assessment and Plan: * Continue Tylenol, tramadol, [place], lid
--- NOTE | 2021-04-29 11:34 | PM.IMPN ---
Progress Note: A&P Assessment and Plan (1) Weakness: Code(s): R53.1 - Weakness Status: Acute Assessment and Plan: ? Exhibit tolerance during physical activity as evidenced by a normal fluctuation of vital signs during physical activity. ? Patient will be ability to perform required activities of daily living. ? Provide appropriate nutrition for healing and strength. ? Use appropriate to prevent falls. ? Continue physical therapy/occupational therapy. will schedule pain medication so patient can work with therapy Pain medication has helped patient is moving a lot better (2) Orthostatic hypotension: Onset Date: 04/17/21 Code(s): I95.1 - Orthostatic hypotension Status: Acute Assessment and Plan: will monitored instructed patient to stand up slowly continue faheem may (3) Femur fracture, right: Onset Date: 04/11/21 Qualifiers: Encounter type: initial encounter Code(s): S72.91XA - Unspecified fracture of right femur, initial encounter for closed fracture Status: Acute Assessment and Plan: s/p INSERTION GAMMA CASS RIGHT HIP on 04/12/2021 WBAT continue DRS change Cont pain management [place] to be removed on the 14th day after surgery. [place] were removed last week Contact orthopedic office for a 6 week f/u appointment at [phone] Continue Xarelto for 28 days Will schedule pain medication in the am so he can work with physical therapy (4) Right-sided heart failure: Onset Date: Unknown Qualifiers: Heart failure chronicity: chronic Qualified Code(s): I50.812 - Chronic right heart failure Code(s): I50.810 - Right heart failure, unspecified Status: Chronic Assessment and Plan: Compensated Continue Lasix 20 mg daily Elian Wheeler MD [Physician] stave machine tender- 1 Week (5) BPH with obstruction/lower urinary tract symptoms: Onset Date: Unknown Code(s): N40.1 - Benign prostatic hyperplasia with lower urinary tract symptoms; N13.8 - Other obstructive and reflux uropathy Status: Chronic Assessment and Plan: cont tamsulosin (6) Diabetes type 2, controlled: Onset Date: Unknown Qualifiers: Diabetes mellitus fpc insulin use: without fpc use Diabetes mellitus complication status: with diabetic arthropathy Code(s): E11.9 - Type 2 diabetes mellitus without complications Status: Acute Assessment and Plan: stable a1c 5.0 04/12/2021 Continue Accu-Chek with sliding scale hypoglycemic protocol (7) Hypertension: Qualifiers: Hypertension type: primary hypertension Qualified Code(s): I10 - Essential (primary) hypertension Code(s): I10 - Essential (primary) hypertension Status: Chronic Assessment and Plan: Slightly elevated, slightly secondary to pain will manage pain better Continue metoprolol 12.5 Vital signs as ordered Will adjust medication as needed (8) GERD (gastroesophageal reflux disease): Onset Date: Unknown Qualifiers: Esophagitis presence: without esophagitis Qualified Code(s): K21.9 - Gastro-esophageal reflux disease without esophagitis Code(s): K21.9 - Gastro-esophageal reflux disease without esophagitis Status: Chronic Assessment and Plan: Continue Protonix (9) Chronic pain: Code(s): G89.29 - Other chronic pain Status: Acute Assessment and Plan: Continue Tylenol, tramadol, [facility], lidocaine patch and diclofenac per order Will adjust medication as needed (10) Hyperlipidemia: Onset Date: Unknown Qualifiers: Hyperlipidemia type: mixed hyperlipidemia Qualified Code(s): E78.2 - Mixed hyperlipidemia Code(s): E78.5 - Hyperlipidemia, unspecified Status: Chronic Assessment and Plan: Continue atorvastatin Subjective Date/time seen: 04/29/21 11:34 71-year-old up ambulate with
[2021-04-29 16:45] VITALS: BP 110/67; PULSE 68; RESP 18; TEMP 36.6; O2SAT 96
[2021-04-29 16:58] VITALS: PULSE 68
[2021-04-29] MEDS: RIVAROXABAN 10 MG TABLET PO (16:58)
[2021-04-29] MEDS: LATANOPROST 0.005% OP SOLN 2.5 ML BTL 1 DROP EACH EYE (16:59)
[2021-04-29] MEDS: TAMSULOSIN HCL 0.4 MG CAPSULE 0.8 MG PO (21:10)
[2021-04-29] MEDS: traZODone HCL 50 MG TABLET PO (21:11)
[2021-04-30] VITALS: BP 109/65; PULSE 68; RESP 18; TEMP 36.8; O2SAT 96
[2021-04-30] MEDS: HYDROcodone/acetaminophen (*CRX) 5-325 MG TABLET 1 TAB PO (06:41)
[2021-04-30 08:00] VITALS: BP 112/70; PULSE 72; RESP 16; TEMP 36.4; O2SAT 96
[2021-04-30] MEDS: FERROUS SULFATE 324 MG TABLET PO ×2 (08:20→18:03)
[2021-04-30] MEDS: metFORMIN HCL XR 500 MG TAB.SR.24H 1000 MG PO ×2 (09:00→18:02)
[2021-04-30 09:01] VITALS: PULSE 85
[2021-04-30] MEDS: LORATADINE 5 MG TABLET PO (09:01)
[2021-04-30] MEDS: METOPROLOL TARTRATE 12.5 MG TABLET PO ×2 (09:01→18:05)
[2021-04-30] MEDS: LIDOCAINE 5% PATCH 1 PATCH TRANSDERM (09:02)
[2021-04-30] MEDS: VITAMIN B COMPLEX CAPSULE 1 CAP PO (09:03)
[2021-04-30] MEDS: GABAPENTIN 400 MG CAPSULE 1200 MG PO ×2 (09:04→18:02)
[2021-04-30] MEDS: SENNA/DOCUSATE SODIUM TABLET 2 TAB PO ×2 (09:05→18:03)
[2021-04-30] MEDS: FUROSEMIDE 20 MG TABLET 60 MG PO (09:05)
[2021-04-30] MEDS: ATORVASTATIN 10 MG TABLET 20 MG PO (09:06)
[2021-04-30] MEDS: ASCORBIC ACID 500 MG TABLET PO (09:06)
[2021-04-30] MEDS: DOXAZOSIN MESYLATE 2 MG TABLET PO (09:07)
[2021-04-30] MEDS: BRIMONIDINE TARTRATE 0.2% OP SOLN 5 ML BTL 1 DROP EACH EYE (09:07)
[2021-04-30] MEDS: GLIMEPIRIDE 2 MG TABLET PO (09:07)
[2021-04-30] MEDS: ZINC SULFATE 220 MG CAPSULE PO (09:07)
--- NOTE | 2021-04-30 09:16 | PM.EVENT ---
Event Note Event Note Event Note: Went in to discuss with patient about discharging this week and explained to him the importance of exercise noted that patient has on his right knee spots almost looks like a small rash on left knee patient denies any itching and or pain we will continue to monitor.
[2021-04-30] MEDS: DICLOFENAC SODIUM 1% 100 GM GEL (*BKC) 1 APPLIC TOPICAL ×4 (09:20→20:13)
[2021-04-30] MEDS: CYANOCOBALAMIN 1,000 MCG TABLET 1000 MCG PO (09:20)
[2021-04-30] MEDS: PANTOPRAZOLE SOD SESQUIHYDRATE 20 MG TAB PO (09:24)
[2021-04-30 16:30] VITALS: BP 108/67; PULSE 65; RESP 18; TEMP 36.5; O2SAT 100
[2021-04-30] MEDS: RIVAROXABAN 10 MG TABLET PO (18:03)
[2021-04-30 18:05] VITALS: PULSE 65
[2021-04-30] MEDS: LATANOPROST 0.005% OP SOLN 2.5 ML BTL 1 DROP EACH EYE (18:05)
[2021-04-30] MEDS: HYDROcodone/acetaminophen (*CRX) 7.5-325 MG TABLET 1 TAB PO (18:08)
[2021-04-30] MEDS: TAMSULOSIN HCL 0.4 MG CAPSULE 0.8 MG PO (20:13)
[2021-04-30] MEDS: traMADol HCL (*CRX) 25 MG TABLET PO (20:14)
--- NOTE | 2021-04-30 20:22 | PC.NURSE ---
Pt ambulated from chair to bed with 1 assist, walker, and gait belt and performed well. Pt was very communicative and verbalized he is looking forward to discharging home. Call light was placed within reach of pt and bed alarm was put on since pt rolls in his sleep. Heels are elevated/floating to prevent any bed sores from forming.
[2021-04-30 23:26] VITALS: BP 130/69; PULSE 69; RESP 15; TEMP 36.5; O2SAT 98
[2021-05-01] MEDS: HYDROcodone/acetaminophen (*CRX) 5-325 MG TABLET 1 TAB PO (06:17)
[2021-05-01 08:00] VITALS: BP 106/70; PULSE 83; RESP 14; TEMP 37.1; O2SAT 99
[2021-05-01] MEDS: FUROSEMIDE 20 MG TABLET 60 MG PO (08:40)
[2021-05-01 08:47] VITALS: PULSE 83
[2021-05-01] MEDS: metFORMIN HCL XR 500 MG TAB.SR.24H 1000 MG PO ×2 (08:47→16:27)
[2021-05-01] MEDS: METOPROLOL TARTRATE 12.5 MG TABLET PO ×2 (08:47→16:51)
[2021-05-01] MEDS: ZINC SULFATE 220 MG CAPSULE PO (08:47)
[2021-05-01] MEDS: VITAMIN B COMPLEX CAPSULE 1 CAP PO (08:47)
[2021-05-01] MEDS: GABAPENTIN 400 MG CAPSULE 1200 MG PO ×2 (08:47→16:26)
[2021-05-01] MEDS: SENNA/DOCUSATE SODIUM TABLET 2 TAB PO (08:48)
[2021-05-01] MEDS: ATORVASTATIN 10 MG TABLET 20 MG PO (08:48)
[2021-05-01] MEDS: DOXAZOSIN MESYLATE 2 MG TABLET PO (08:49)
[2021-05-01] MEDS: LORATADINE 5 MG TABLET PO (08:49)
[2021-05-01] MEDS: PANTOPRAZOLE SOD SESQUIHYDRATE 20 MG TAB PO (08:49)
[2021-05-01] MEDS: FERROUS SULFATE 324 MG TABLET PO ×2 (08:49→16:25)
[2021-05-01] MEDS: GLIMEPIRIDE 2 MG TABLET PO (08:49)
[2021-05-01] MEDS: ASCORBIC ACID 500 MG TABLET PO (08:49)
[2021-05-01] MEDS: CYANOCOBALAMIN 1,000 MCG TABLET 1000 MCG PO (08:50)
[2021-05-01] MEDS: DICLOFENAC SODIUM 1% 100 GM GEL (*BKC) 1 APPLIC TOPICAL ×4 (09:22→21:28)
[2021-05-01] MEDS: BRIMONIDINE TARTRATE 0.2% OP SOLN 5 ML BTL 1 DROP EACH EYE (09:23)
[2021-05-01] MEDS: traMADol HCL (*CRX) 25 MG TABLET PO ×2 (12:50→21:19)
[2021-05-01 16:00] VITALS: BP 125/70; PULSE 74; RESP 16; TEMP 36.9; O2SAT 98
[2021-05-01] MEDS: LATANOPROST 0.005% OP SOLN 2.5 ML BTL 1 DROP EACH EYE (16:25)
[2021-05-01] MEDS: RIVAROXABAN 10 MG TABLET PO (16:27)
[2021-05-01 16:51] VITALS: PULSE 74
[2021-05-01] MEDS: TAMSULOSIN HCL 0.4 MG CAPSULE 0.8 MG PO (21:20)
[2021-05-01] MEDS: traZODone HCL 50 MG TABLET PO (21:20)
[2021-05-02] VITALS (7 sets, daily range): BP systolic 110–127; BP diastolic 62–72; PULSE 66–80; RESP 16–18; TEMP 36.9–37.6; O2SAT 97–100
--- NOTE | 2021-05-02 00:12 | PC.NURSE ---
Pt sleeping upon assessment but awakens easily and is A&Ox3. Pt denies any c/o at this time, VSS, call campos in pt reach.
--- NOTE | 2021-05-02 02:00 | PC.NURSE ---
Pt awake and stating he is having a little pain and discomfort and unable to get back to sleep. Pt requesting pain medication. Pt wanting to hold on [place] for now due to possibly going home in 1-2 days and offered Tylenol for mild discomfort and pain. tylenol 650mg PO given as per PRN order. Pt feet elevated on pillows and repositioned himself in bed. Call campos at pt side.
[2021-05-02] MEDS: ACETAMINOPHEN 325 MG TABLET 650 MG PO (02:02)
[2021-05-02] MEDS: VITAMIN B COMPLEX CAPSULE 1 CAP PO (08:18)
[2021-05-02] MEDS: BRIMONIDINE TARTRATE 0.2% OP SOLN 5 ML BTL 1 DROP EACH EYE (08:18)
[2021-05-02] MEDS: LIDOCAINE 5% PATCH 1 PATCH TRANSDERM (08:18)
[2021-05-02] MEDS: CYANOCOBALAMIN 1,000 MCG TABLET 1000 MCG PO (08:19)
[2021-05-02] MEDS: metFORMIN HCL XR 500 MG TAB.SR.24H 1000 MG PO ×2 (08:19→17:06)
[2021-05-02] MEDS: FERROUS SULFATE 324 MG TABLET PO ×2 (08:19→17:05)
[2021-05-02] MEDS: ASCORBIC ACID 500 MG TABLET PO (08:20)
[2021-05-02] MEDS: ATORVASTATIN 10 MG TABLET 20 MG PO (08:20)
[2021-05-02] MEDS: DOXAZOSIN MESYLATE 2 MG TABLET PO (08:20)
[2021-05-02] MEDS: FUROSEMIDE 20 MG TABLET 60 MG PO (08:21)
[2021-05-02] MEDS: GLIMEPIRIDE 2 MG TABLET PO (08:22)
[2021-05-02] MEDS: PANTOPRAZOLE SOD SESQUIHYDRATE 20 MG TAB PO (08:22)
[2021-05-02] MEDS: GABAPENTIN 400 MG CAPSULE 1200 MG PO ×2 (08:22→17:05)
[2021-05-02] MEDS: METOPROLOL TARTRATE 12.5 MG TABLET PO ×2 (08:23→17:07)
[2021-05-02] MEDS: ZINC SULFATE 220 MG CAPSULE PO (08:23)
[2021-05-02] MEDS: LORATADINE 5 MG TABLET PO (08:23)
[2021-05-02] MEDS: DICLOFENAC SODIUM 1% 100 GM GEL (*BKC) 1 APPLIC TOPICAL ×4 (08:24→21:03)
[2021-05-02] MEDS: traMADol HCL (*CRX) 25 MG TABLET PO (09:08)
[2021-05-02] MEDS: LATANOPROST 0.005% OP SOLN 2.5 ML BTL 1 DROP EACH EYE (17:04)
[2021-05-02] MEDS: RIVAROXABAN 10 MG TABLET PO (17:06)
[2021-05-02] MEDS: TAMSULOSIN HCL 0.4 MG CAPSULE 0.8 MG PO (21:02)
[2021-05-02] MEDS: traZODone HCL 50 MG TABLET PO (21:03)
[2021-05-03] VITALS: BP 118/73; PULSE 71; RESP 16; TEMP 36.9; O2SAT 96
[2021-05-03 06:18] LABS: Hematocrit 29.8 % (37.0-46.0); Hemoglobin 9.6 g/dL (12.4-15.3); Mean Corpuscular HGB Conc 32.2 g/dL (32.0-36.0); Mean Corpuscular Hemoglobin 28.7 pg (27.0-31.0); Mean Platelet Volume 10.8 fl (8.7-11.0); Platelet Count Result 190 K/mm3 (150-420); Red Blood Count 3.35 M/mm3 (4.70-6.10); Red Cell Distribution Width 13.4 % (11.6-14.4); White Blood Count 5.3 K/mm3 (4.8-10.8)
[2021-05-03 06:25] LABS: Anion Gap 11 mmol/L (8-16); Blood Urea Nitrogen 55 mg/dL (7-18); Calcium 8.4 mg/dL (8.5-10.1); Carbon Dioxide 26 mmol/L (21-32); Chloride 104 mmol/L (98-108); Estimated CRCL calculation 36 ml/min; Estimated Glomerular Filt Rate 36; Glucose 73 mg/dL (70-99); Osmolality Calculated 306 mOsm/kg (285-295); Potassium 3.9 mmol/L (3.5-5.1); Sodium 141 mmol/L (136-145)
[2021-05-03] MEDS: HYDROcodone/acetaminophen (*CRX) 5-325 MG TABLET 1 TAB PO (06:38)
[2021-05-03 07:39] VITALS: BP 104/60; PULSE 63; RESP 16; TEMP 37.3; O2SAT 98
[2021-05-03] MEDS: LIDOCAINE 5% PATCH 1 PATCH TRANSDERM (08:14)
[2021-05-03] MEDS: DICLOFENAC SODIUM 1% 100 GM GEL (*BKC) 1 APPLIC TOPICAL (08:16)
[2021-05-03] MEDS: metFORMIN HCL XR 500 MG TAB.SR.24H 1000 MG PO (08:17)
[2021-05-03] MEDS: BRIMONIDINE TARTRATE 0.2% OP SOLN 5 ML BTL 1 DROP EACH EYE (08:17)
[2021-05-03] MEDS: VITAMIN B COMPLEX CAPSULE 1 CAP PO (08:18)
[2021-05-03] MEDS: CYANOCOBALAMIN 1,000 MCG TABLET 1000 MCG PO (08:18)
[2021-05-03] MEDS: GABAPENTIN 400 MG CAPSULE 1200 MG PO (08:18)
[2021-05-03] MEDS: GLIMEPIRIDE 2 MG TABLET PO (08:19)
[2021-05-03] MEDS: FERROUS SULFATE 324 MG TABLET PO (08:20)
[2021-05-03] MEDS: ATORVASTATIN 10 MG TABLET 20 MG PO (08:20)
[2021-05-03] MEDS: PANTOPRAZOLE SOD SESQUIHYDRATE 20 MG TAB PO (08:21)
[2021-05-03] MEDS: FUROSEMIDE 20 MG TABLET 60 MG PO (08:21)
[2021-05-03] MEDS: DOXAZOSIN MESYLATE 2 MG TABLET PO (08:21)
[2021-05-03 08:22] VITALS: PULSE 63
[2021-05-03] MEDS: ASCORBIC ACID 500 MG TABLET PO (08:22)
[2021-05-03] MEDS: METOPROLOL TARTRATE 12.5 MG TABLET PO (08:22)
[2021-05-03] MEDS: LORATADINE 5 MG TABLET PO (08:23)
[2021-05-03] MEDS: ZINC SULFATE 220 MG CAPSULE PO (08:26)
--- NOTE | 2021-05-03 09:14 | P.DS_ITS ---
DS: Admitting Diagnosis Discharge Date 05/03/2021 Admitting Diagnosis Weakness DS: Discharge Diagnosis Discharge Diagnosis (1) Weakness: Code(s): R53.1 - Weakness Status: Acute Assessment and Plan: ? Patient ambulating 80 feet x 2 with 4 wheeled walker and standby assist * Patient will discharge home with home health (2) Orthostatic hypotension: Onset Date: 04/17/21 Code(s): I95.1 - Orthostatic hypotension Status: Acute Assessment and Plan: * will monitored * instructed patient to stand up slowly * continue faheem hose (3) Femur fracture, right: Onset Date: 04/11/21 Qualifiers: Encounter type: initial encounter Code(s): S72.91XA - Unspecified fracture of right femur, initial encounter for closed fracture Status: Acute Assessment and Plan: * s/p INSERTION GAMMA CASS RIGHT HIP on 04/12/2021 * WBAT * continue DRS change * Cont pain management * [place] to be removed on the 14th day after surgery. Everardo were removed last week * Contact orthopedic office for a 6 week f/u appointment at [phone] * Continue Xarelto for 28 days * Will schedule pain medication in the am so he can work with physical therapy Discharge Surgical site healed no obvious signs or symptoms of infection noted follow-up with Ortho Continue Xarelto for 18 days Surgical site open to air (4) Right-sided heart failure: Onset Date: Unknown Qualifiers: Heart failure chronicity: chronic Qualified Code(s): I50.812 - Chronic right heart failure Code(s): I50.810 - Right heart failure, unspecified Status: Chronic Assessment and Plan: * Compensated * Continue Lasix 20 mg daily * Elian Wheeler MD [Physician] safety attendant- 1 Week (5) BPH with obstruction/lower urinary tract symptoms: Onset Date: Unknown Code(s): N40.1 - Benign prostatic hyperplasia with lower urinary tract symptoms; N13.8 - Other obstructive and reflux uropathy Status: Chronic Assessment and Plan: * cont tamsulosin (6) Diabetes type 2, controlled: Onset Date: Unknown Qualifiers: Diabetes mellitus complication status: with diabetic arthropathy Diabetes mellitus middle or intermediate school principal insulin use: without snf use Code(s): E11.9 - Type 2 diabetes mellitus without complications Status: Acute Assessment and Plan: * stable * a1c 5.0 04/12/2021 * Continue home medication * (7) Hypertension: Qualifiers: Hypertension type: primary hypertension Qualified Code(s): I10 - Essential (primary) hypertension Code(s): I10 - Essential (primary) hypertension Status: Chronic Assessment and Plan: * Stable * Continue metoprolol 12.5 * Continue home medication (8) GERD (gastroesophageal reflux disease): Onset Date: Unknown Qualifiers: Esophagitis presence: without esophagitis Qualified Code(s): K21.9 - Gastro-esophageal reflux disease without esophagitis Code(s): K21.9 - Gastro-esophageal reflux disease without esophagitis Status: Chronic Assessment and Plan: * Continue Protonix (9) Chronic pain: Code(s): G89.29 - Other chronic pain Status: Acute Assessment and Plan: * Uncontrolled * Patient will discharge home with a limited amount of [place] (10) Hyperlipidemia: Onset Date: Unknown Qualifiers: Hyperlipidemia type: mixed hyperlipidemia Qualified Code(s): E78.2 - Mixed hyperlipidemi
--- NOTE | 2021-05-03 09:14 | PM.DS ---
DS: Admitting Diagnosis Discharge Date 05/03/2021 Admitting Diagnosis Weakness DS: Discharge Diagnosis Discharge Diagnosis (1) Weakness: Code(s): R53.1 - Weakness Status: Acute Assessment and Plan: ? Patient ambulating 80 feet x 2 with 4 wheeled walker and standby assist Patient will discharge home with home health (2) Orthostatic hypotension: Onset Date: 04/17/21 Code(s): I95.1 - Orthostatic hypotension Status: Acute Assessment and Plan: will monitored instructed patient to stand up slowly continue faheem hose (3) Femur fracture, right: Onset Date: 04/11/21 Qualifiers: Encounter type: initial encounter Code(s): S72.91XA - Unspecified fracture of right femur, initial encounter for closed fracture Status: Acute Assessment and Plan: s/p INSERTION GAMMA CASS RIGHT HIP on 04/12/2021 WBAT continue DRS change Cont pain management [place] to be removed on the 14th day after surgery. [place] were removed last week Contact orthopedic office for a 6 week f/u appointment at [phone] Continue Xarelto for 28 days Will schedule pain medication in the am so he can work with physical therapy Discharge Surgical site healed no obvious signs or symptoms of infection noted follow-up with Ortho Continue Xarelto for 18 days Surgical site open to air (4) Right-sided heart failure: Onset Date: Unknown Qualifiers: Heart failure chronicity: chronic Qualified Code(s): I50.812 - Chronic right heart failure Code(s): I50.810 - Right heart failure, unspecified Status: Chronic Assessment and Plan: Compensated Continue Lasix 20 mg daily Elian Wheeler MD [Physician] banquet houseperson- 1 Week (5) BPH with obstruction/lower urinary tract symptoms: Onset Date: Unknown Code(s): N40.1 - Benign prostatic hyperplasia with lower urinary tract symptoms; N13.8 - Other obstructive and reflux uropathy Status: Chronic Assessment and Plan: cont tamsulosin (6) Diabetes type 2, controlled: Onset Date: Unknown Qualifiers: Diabetes mellitus complication status: with diabetic arthropathy Diabetes mellitus terminal makeup operator insulin use: without terminal makeup operator use Code(s): E11.9 - Type 2 diabetes mellitus without complications Status: Acute Assessment and Plan: stable a1c 5.0 04/12/2021 Continue home medication (7) Hypertension: Qualifiers: Hypertension type: primary hypertension Qualified Code(s): I10 - Essential (primary) hypertension Code(s): I10 - Essential (primary) hypertension Status: Chronic Assessment and Plan: Stable Continue metoprolol 12.5 Continue home medication (8) GERD (gastroesophageal reflux disease): Onset Date: Unknown Qualifiers: Esophagitis presence: without esophagitis Qualified Code(s): K21.9 - Gastro-esophageal reflux disease without esophagitis Code(s): K21.9 - Gastro-esophageal reflux disease without esophagitis Status: Chronic Assessment and Plan: Continue Protonix (9) Chronic pain: Code(s): G89.29 - Other chronic pain Status: Acute Assessment and Plan: Uncontrolled Patient will discharge home with a limited amount of [place] (10) Hyperlipidemia: Onset Date: Unknown Qualifiers: Hyperlipidemia type: mixed hyperlipidemia Qualified Code(s): E78.2 - Mixed hyperlipidemia Code(s): E78.5 - Hyperlipidemia, unspecified Status: Chronic Assessment and Plan: Continue atorvastatin DS: Summary Hospital Course Reason for hospitalization: Weakness Hospital Course: this is a 71-year-old male that was admitted to [facility] on 04/11/2021 for right hip pain status post mechanical fall. Imaging indicate closed fracture of the right hip. On 04/12/2021 a insertion of the gamma cass to the right hip was completed by Damon
--- NOTE | 2021-05-03 13:40 | PC.NURSE ---
Patient discharged at 1340. Accompanied to nida in w/c by magnetic tape typewriter operator. Discharge instructions given to patient and patient's son. Both verbalized understanding. Personal belongings sent home with patient. Prescriptions transmitted to pharmacy and written prescription give to patient.
--- NOTE | 2021-05-06 12:43 | PC.NURSE ---
Pt states he received and understood his discharge instructions. Pt also states it was great .
== END 2021-05-03 13:40 | disposition home health service (06) | DRG 561 ==
PROVIDERS: Nurse Practitioner; Nurse Practitioner Family; Admitting Provider Internal Medicine; PCP Family Medicine Adolescent Medicine; Visit Provider Internal Medicine
DX: S72.001D Fracture of unspecified part of neck of right femur, subsequent encounter for closed fracture with routine healing (principal); I11.0 Hypertensive heart disease with heart failure; I50.812 Chronic right heart failure; I95.1 Orthostatic hypotension; E11.39 Type 2 diabetes mellitus with other diabetic ophthalmic complication; H40.1132 Primary open-angle glaucoma, bilateral, moderate stage; D50.9 Iron deficiency anemia, unspecified; E78.5 Hyperlipidemia, unspecified; E11.42 Type 2 diabetes mellitus with diabetic polyneuropathy; E53.8 Deficiency of other specified B group vitamins; J45.909 Unspecified asthma, uncomplicated; K21.9 Gastro-esophageal reflux disease without esophagitis; N40.1 Benign prostatic hyperplasia with lower urinary tract symptoms; M81.0 Age-related osteoporosis without current pathological fracture; M54.50 Low back pain, unspecified; G89.29 Other chronic pain; H42 Glaucoma in diseases classified elsewhere; R53.1 Weakness; W19.XXXD Unspecified fall, subsequent encounter; Z79.84 Long term (current) use of oral hypoglycemic drugs
CPT/HCPCS: 36415; 80048; 82948; 85027; 97110; 97161; 97165; 97530; 97535; A9270

== ENCOUNTER 2021-05-10 10:01 | Emergency (ER) | payer MEDICARE, MEDICAID, SELFPAY ==
--- NOTE | ~2021-05-10 | XR_ITS ---
EXAMINATION: XR chest 2V 05/10/2021 11:22 INDICATION: Increased weakness. PROCEDURE: 2 view chest COMPARISON: Comparison to multiple prior studies sequentially, with oldest reviewed study dated 11/07. FINDINGS: The lungs are clear. The cardiomediastinal silhouette is within normal limits. There are no pleural effusions. There is no pneumothorax suspected. There are partially visualized Jones rods overlying the lower thoracic spine. IMPRESSION: 1: NO ACUTE CARDIOPULMONARY DISEASE. Reviewed, dictated and finalized at location B.
--- NOTE | ~2021-05-10 | XR_ITS ---
XR hip RT min 3V w AP pelvis 05/10/2021 12:45 Indication: Recent right hip surgery Procedure: AP pelvis and 3 views right hip Comparison: 04/11/2021 Findings: Interval placement of dynamic compression screw and intramedullary woody transfixing a nondis placed right femoral intertrochanteric fracture. No significant alteration of alignment. There are smith rgical changes consistent with fusion of the lower lumbar spine, sacrum and pelvis. Osteopenia. Mild osteitis pubis. Extensive femoral vascular calcifications. No new fractures. No focal soft tissue abn ormality. Impression: 1: Stable alignment of healing right femoral intertrochanteric fracture transfixed by dynamic mike otto screw and intramedullary woody. Reviewed, dictated and finalized at location B. Impression: 1: Stable alignment of healing right femoral intertrochanteric fracture transfi xed by dynamic compression screw and intramedullary woody.
--- NOTE | ~2021-05-10 | XR_ITS ---
XR foot LT min 3V 05/10/2021 12:52 Indication: Sore on lateral side of left foot Procedure: 4 views left foot Comparison: No prior studies for comparison. Findings: Osteopenia. 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 There are vascular calcifi cations. No acute fracture, subluxation or dislocation. No focal soft tissue abnormality. No foreign bodies. Small degenerative calcaneal enthesophyte. Impression: 1: No acute bone or joint abnormality. If there is concern for osteomyelitis, correlation with MRI wi th contrast recommended. Reviewed, dictated and finalized at location B. Impression: 1: No acute bone or joint abnormality. If there is concern for osteomyelitis, c orrelation with MRI with contrast recommended.
[2021-05-10 10:05] VITALS: BP 120/50; PULSE 63; RESP 15; TEMP 36.6; O2SAT 100
--- NOTE | 2021-05-10 10:08 | ECG_ITS ---
Measurements Intervals [place] Rate: 70 P: NV: 0 QRS: -25 QRSD: 143 T: -30 QT: 393 QTc: 426 Interpretive Statements SINUS RHYTHM WITH PACS INDETERMINATE AXIS RIGHT BUNDLE BRANCH BLOCK [120+ ms QRS DURATION, UPRIGHT V1, 40+ ms S IN I/aVL/V4/V5/V6] COMPARED TO ECG 04/13/2021 14:56:08 ATRIAL ECTOPIC ACTIVITY IS NOW SEEN Electronically Signed On 05-10-2021 16:11:55 CDT by Farhat De La Cruz M.D.
[2021-05-10 10:25] LABS: Basophils Percent Auto 0.1 % (0.2-1.2); Eosinophils Absolute Auto 0.2 K/mm3 (0-0.3); Eosinophils Percent Auto 2.9 % (0-4.4); Hematocrit 32.3 % (42.0-52.0); Hemoglobin 10.4 g/dL (14.0-18.0); Immature Granulocyte Absolute 0.04 K/mm3 (0.00-0.031); Immature Granulocyte Percent A 0.5 % (0-0.5); Lymphocytes Absolute Auto 0.87 K/mm3 (0.9-3.2); Lymphocytes Percent Auto 11.5 % (18.3-44.2); Mean Corpuscular HGB Conc 32.2 g/dl (32-36); Mean Corpuscular Hemoglobin 28.7 pg (26-34); Mean Corpuscular Volume 89.2 fl (80-100); Mean Platelet Volume 10.2 fl (7.4-10.4); Monocytes Absolute Auto 0.8 K/mm3 (0.1-0.6); Monocytes Percent Auto 11.1 % (2.6-8.5); Neutrophils Absolute Auto 5.6 K/mm3 (1.3-6.7); Neutrophils Percent Auto 73.9 % (45.5-73.1); Platelet Count Result 163 k/mm3 (150-375); Red Blood Count 3.62 M/mm3 (4.6-6.20); Red Cell Distribution Width 13.5 % (11.5-14.5); White Blood Count 7.6 K/mm3 (4.5-10.0)
[2021-05-10 10:36] LABS: Alanine Aminotransferase 12 U/L (4-50); Albumin Level 4.6 g/dL (3.5-5.1); Alkaline Phosphatase 112 U/L (38-126); Anion Gap 12 mmol/L (8-16); Aspartate Amino Transferase 28 U/L (17-59); Bilirubin,Total 0.8 mg/dL (0.2-1.3); Blood Urea Nitrogen 52 mg/dL (9-20); Calcium 8.6 mg/dL (8.4-10.2); Carbon Dioxide 27 mmol/L (22-30); Chloride 99 mmol/L (98-107); Estimated Glomerular Filt Rate 31; Glucose 81 mg/dL (65-110); Potassium 3.6 mmol/L (3.4-5.0); Sodium 138 mmol/L (137-145)
[2021-05-10 11:50] VITALS: BP 138/78; PULSE 73; RESP 11; O2SAT 100
[2021-05-10 11:53] VITALS: RESP 11; O2SAT 100
--- NOTE | 2021-05-10 12:30 | ED.FALL ---
HPI - Fall General Chief Complaint: Fall Stated Complaint: weakness, fall Time Seen by Provider: 05/10/21 12:00 Source: patient History of Present Illness HPI Narrative: Patient presents with progressive weakness and a fall today. Versus recently hospitalized and had a hip repaired and has been at rehab for strengthening. Today at home he felt weak in his legs leaned up against a door jam himself to the ground. He had a hard time getting up so he crawled to his phone and called for assistance. Patient ports he is feeling improved now but he does report he had progressive weakness throughout the past few days. Initially had some right hip pain right-sided now resolved denies striking his head or any loss of conscious denies any focal numbness or weakness. Related Data Home Medications Medication Instructions Recorded Confirmed atorvastatin 20 mg PO DAILY 07/11/19 04/18/21 brimonidine 1 drp OPHTHALMIC (EYE) DAILY 07/11/19 04/18/21 doxazosin 2 mg tablet 2 mg PO DAILY 03/06/21 04/18/21 furosemide 20 mg tablet 60 mg PO DAILY tablet 03/06/21 04/18/21 gabapentin 600 mg tablet 1,200 mg PO BID tablet 03/06/21 04/18/21 glimepiride 2 mg tablet 2 mg PO DAILY tablet 03/06/21 04/18/21 metformin 500 mg tablet,extended 1,000 mg PO BID tablet 03/06/21 04/18/21 release 24 hr tamsulosin 0.4 mg capsule 0.8 mg PO QHS cap 03/06/21 04/18/21 trazodone 50 mg tablet 50 mg PO QHS PRN 03/06/21 04/18/21 B-complex with vitamin C 1 tablet PO DAILY 04/01/21 04/18/21 ascorbic acid (vitamin C) 500 mg 500 mg PO DAILY 04/01/21 04/18/21 tablet latanoprost 0.005 % eye drops 1 drp EACH EYE DAILY 04/01/21 04/18/21 pseudoephedrine HCl 120 mg 120 mg PO Q12H PRN 04/01/21 04/18/21 tablet,extended release zinc 50 mg tablet 50 mg PO DAILY 04/01/21 04/18/21 Allergies Allergy/AdvReac Type Severity Reaction Status Date / Time No Known Allergies Allergy Unknown Verified 05/10/21 11:53 Review of Systems Review of Systems: CONSTITUTIONAL: Denies fever, chills, or sweats. EYES: Denies visual changes, redness, or discharge. ENT: Denies rhinorrhea, congestion, sore throat, or otalgia. CARDIOVASCULAR: Denies chest pain, palpitations, or edema. RESPIRATORY: Denies cough or dyspnea. GASTROINTESTINAL: Denies abdominal pain, nausea, vomiting, or diarrhea. GENITOURINARY: Denies dysuria or hematuria. SKIN: Denies rash or itching. MUSCULOSKELETAL: Denies back pain, joint pain, or myalgia. NEUROLOGIC: Denies headache, numbness, dizziness, or focal weakness. PSYCHIATRIC: Denies anxiety or depression. All systems reviewed & are unremarkable except as noted in HPI and below PMFSH Past Medical History Medical History BPH with obstruction/lower urinary tract symptoms (Unknown) Chronic pain Diabetes mellitus Diabetes type 2, controlled (Unknown) GERD (gastroesophageal reflux disease) (Unknown) Hyperlipidemia (Unknown) Hypertension Knee effusion, right Low back pain, unspecified Mild persistent asthma, uncomplicated Osteoporosis Polyneuropathy, unspecified Primary open-angle glaucoma, bilateral, moderate stage Surgical History Surgical History History of knee surgery History of penile implant Previous back surgery Family History Family History Father CAD (coronary artery disease) Alzheimer disease Mother Alzheimer disease Social History Social History Social History: The patient is a lifelong nonsmoker. The patient does not use any alcohol marijuana or illicit drugs. 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 He is . He has 1 son who is the durable power immigration attorney for healthcare. Code status full code Smoking status: Never smoker Second hand tobacco smoke exposure: No Alcohol intake: former Substance use:
[2021-05-10] MEDS: SODIUM CHLORIDE 0.9% IV 500 ML 999 ML IV CONT (13:05)
[2021-05-10 14:32] LABS: Add Urine Microscopic? YES; Appearance Urine Clear (Clear); Bilirubin Urine Negative (Negative); Blood Urine 1+ (Negative); Color Urine Yellow (Yellow); Glucose Urine UA Negative (Negative); Ketones Urine Negative (Negative); Leukocyte Esterase Ur 3+ LEU/UL (Negative); Mucus Urine Rare /lpf; Nitrate Urine Negative (Negative); Protein Urine Negative (Negative); Specific Grav Ur 1.011 (1.001-1.035); Squamous Epithelial Cell Urine Rare /hpf (Few); Urobilinogen Urine Negative mg/dL (<2.0); WBC Urine 16-20 /hpf
[2021-05-10 14:49] VITALS: BP 127/69; PULSE 63; RESP 18; O2SAT 100
[2021-05-10] MEDS: CEPHALEXIN 500 MG CAPSULE PO (14:52)
[2021-05-10 15:18] VITALS: BP 99/65; PULSE 68; RESP 20; TEMP 37; O2SAT 99
== END 2021-05-10 15:40 | disposition home or self-care (01) ==
PROVIDERS: Emergency Medicine; Emergency Provider Emergency Medicine; PCP Family Medicine Adolescent Medicine
DX: N39.0 Urinary tract infection, site not specified (principal); E11.621 Type 2 diabetes mellitus with foot ulcer; L97.521 Non-pressure chronic ulcer of other part of left foot limited to breakdown of skin; E11.42 Type 2 diabetes mellitus with diabetic polyneuropathy; N40.1 Benign prostatic hyperplasia with lower urinary tract symptoms; E78.5 Hyperlipidemia, unspecified; I10 Essential (primary) hypertension; J45.30 Mild persistent asthma, uncomplicated; K21.9 Gastro-esophageal reflux disease without esophagitis; M81.0 Age-related osteoporosis without current pathological fracture; H40.10X2 Unspecified open-angle glaucoma, moderate stage; Z79.84 Long term (current) use of oral hypoglycemic drugs; I45.10 Unspecified right bundle-branch block
CPT/HCPCS: 36415; 71046; 73502; 73630; 80053; 81001; 85025; 87086; 87147; 87181; 87186; 93005; 96360; 99284; A9270; J7040

== ENCOUNTER 2021-05-29 08:48 | Outpatient (CLI) | payer MEDICARE, OTHER, MEDICAID, SELFPAY ==
--- NOTE | ~2021-05-29 | US_ITS ---
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 COMPARISON: None. FINDINGS: Right and left brachial artery pressures of 119 mm Hg and 131 mm Hg, respectively, are concordant (no rmal difference <= 30 mmHg). The right and left high-thigh pressure indices were unable to be obtaine d due to inability to occlude the vessels at the high thighs. The right ankle-brachial index (JAZZY) is 1.08 (normal >= 0.9-1). The right great toe-brachial index (T BI) is 0.67 (normal >= 0.6-0.8). Arterial waveforms are biphasic with brisk systolic upstrokes throug hout the arteries of the right lower limb. Cardiac arrhythmia is present. The left JAZZY is 0.34. No discernible arterial flow at the left great toe. The left lower extremity se gmental pressure gradients are increased between the left posterior tibial artery and the contralater al right posterior tibial artery. Arterial waveforms are biphasic with brisk systolic upstrokes at th e left common femoral, superficial femoral arteries. Parvus et tardus waveforms at the left popliteal artery with delayed upstrokes and more severely at the left posterior tibial and dorsalis pedis nohemy silvina. IMPRESSION: 1. Severe arterial occlusive disease to the left lower limb with severely decreased left JAZZY, no disc ernible pulse at the left great toe and parvus et tardus, nearly aphasic waveforms at the left glycerin supervisor ior tibial and dorsalis pedis arteries. 2. No significant arterial occlusive disease to the right lower limb with normal right JAZZY and border line right TBI. 3. Cardiac arrhythmia is present. Correlate with EKG. Reviewed, dictated and finalized at location B. IMPRESSION: 1. Severe arterial occlusive disease to the left lower limb with severely decre ased left JAZZY, no discernible pulse at the left great toe and parvus et tardus, nearly aphasic waveforms at the left posterior tibial and dorsalis pedis arter ies. 2. No significant arterial occlusive disease to the right lower limb with rajani l right JAZZY and borderline right TBI. 3. Cardiac arrhythmia is present. Correlate with EKG.
== END 2021-05-29 08:49 | disposition home or self-care (01) ==
LOC: ANHIMG 08:50
PROVIDERS: PCP Family Medicine Adolescent Medicine; Visit Provider Physician Assistant
DX: L97.529 Non-pressure chronic ulcer of other part of left foot with unspecified severity (principal)
CPT/HCPCS: 93923

== ENCOUNTER 2022-03-03 11:46 | Outpatient (CLI) | payer MEDICARE, MEDICAID, SELFPAY ==
--- NOTE | ~2022-03-03 | US_ITS ---
EXAMINATION: US venous doppler [facility] DATE: 03/03/2022 13:05 INDICATION: Lower limb swelling TECHNIQUE: Grayscale ultrasound images without and with compression and Doppler ultrasound images of the bilateral lower extremity veins were obtained. COMPARISON: None. FINDINGS: The visualized portions of right common femoral vein, profunda (deep) femoral vein, femoral vein, pop liteal vein, posterior tibial veins, peroneal veins, gastrocnemius vein and greater saphenous vein ou tflow are patent. The visualized portions of left common femoral vein, profunda femoral vein, femoral vein, popliteal v ein, posterior tibial veins, peroneal veins, gastrocnemius vein and greater saphenous vein outflow ar e patent. IMPRESSION: 1. No deep venous thrombosis in either lower limb. Reviewed, dictated and finalized at location A. 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
== END 2022-03-03 11:47 | disposition home or self-care (01) ==
PROVIDERS: PCP Family Medicine Adolescent Medicine; Visit Provider Physician Assistant
DX: R22.43 Localized swelling, mass and lump, lower limb, bilateral (principal)
CPT/HCPCS: 93970

== ENCOUNTER → 2022-06-04 13:37 | Outpatient (CLI) | payer MEDICARE, SELFPAY ==
--- NOTE | ~2022-06-04 | XR_ITS ---
EXAM: XR hip LT min 2V, XR femur LT min 2V, [id number] DATE: 06/04/2022 14:10 HISTORY: Pain in left thigh, hip, knee with weight-bearing . COMPARISON: None available. FINDINGS: Decreased mineralization. Partially visualized lumbar and sacral fusion hardware. Extensiv e vascular calcifications. Distal femoral artery stent. Penile prosthesis. Mild left hip and moderate -severe left knee osteoarthritis. Large loose intra-articular body in a posterior knee joint recess. Large left knee joint effusion. IMPRESSION: No acute osseous finding in the left hip, femur or knee. Reviewed, dictated and finalized at location K. IMPRESSION: No acute osseous finding in the left hip, femur or knee. IMPRESSION: No acute osseous finding in the left hip, femur or knee.
== END ==
PROVIDERS: PCP Family Medicine Adolescent Medicine; Visit Provider Family Medicine Adolescent Medicine
DX: M79.652 Pain in left thigh (principal); M25.552 Pain in left hip; M25.562 Pain in left knee
CPT/HCPCS: 73502; 73552; 73560

== ENCOUNTER → 2022-07-28 16:09 | Outpatient (CLI) | payer MEDICARE, SELFPAY ==
--- NOTE | ~2022-07-28 | XR_ITS ---
EXAMINATION: XR chest 2V DATE: 07/28/2022 16:28 INDICATION: Dyspnea on exertion TECHNIQUE: PA and lateral views of the chest are obtained. COMPARISON: 05/10/2021 FINDINGS: The lungs are free of acute opacities. No pleural effusion or pneumothorax. The cardiomedia stinal silhouette is normal. There are partially imaged changes of posterior thoracolumbar fusion. Ve rtebroplasty change is also noted at multiple levels in the thoracic spine. IMPRESSION: 1. No acute cardiopulmonary abnormality. Reviewed, dictated and finalized at location F.
== END ==
PROVIDERS: PCP Family Medicine Adolescent Medicine; Visit Provider Family Medicine Adolescent Medicine
DX: R06.09 Other forms of dyspnea (principal); E11.9 Type 2 diabetes mellitus without complications; I48.91 Unspecified atrial fibrillation; I50.9 Heart failure, unspecified
CPT/HCPCS: 71046

== ENCOUNTER 2022-08-12 11:45 | Outpatient (CLI) | payer MEDICARE, MEDICAID, SELFPAY ==
[2022-08-12 12:18] LABS: Albumin Level 4.4 g/dL (3.5-5.1); Anion Gap 7 mmol/L (8-16); Blood Urea Nitrogen 30 mg/dL (9-20); Calcium 8.7 mg/dL (8.4-10.2); Carbon Dioxide 28 mmol/L (22-30); Chloride 107 mmol/L (98-107); Estimated Glomerular Filt Rate 35; Glucose 70 mg/dL (65-110); Phosphorus 3.6 mg/dL (2.5-4.5); Potassium 4.2 mmol/L (3.4-5.0); Sodium 142 mmol/L (137-145)
[2022-08-12 13:15] LABS: Creatinine Urine 48.9 mg/dL; Total Protein Urine Random 27 mg/dL; Ur Ttl Prot Creatinine Ratio 0.55 mg/mg (0-0.20)
== END 2022-08-12 11:46 | disposition home or self-care (01) ==
PROVIDERS: PCP Family Medicine Adolescent Medicine; Visit Provider Internal Medicine Nephrology
DX: E11.22 Type 2 diabetes mellitus with diabetic chronic kidney disease (principal); I12.9 Hypertensive chronic kidney disease with stage 1 through stage 4 chronic kidney disease, or unspecified chronic kidney disease; N18.32 Chronic kidney disease, stage 3b
CPT/HCPCS: 36415; 80069; 82570; 84156

== ENCOUNTER 2022-11-13 13:07 | Outpatient (CLI) | payer MEDICARE, MEDICAID, SELFPAY ==
[2022-11-13 14:56] LABS: Albumin Level 4.1 g/dL (3.5-5.1); Anion Gap 8 mmol/L (8-16); Blood Urea Nitrogen 27 mg/dL (9-20); Carbon Dioxide 25 mmol/L (22-30); Chloride 103 mmol/L (98-107); Estimated Glomerular Filt Rate 37; Glucose 143 mg/dL (65-110); Phosphorus 3.6 mg/dL (2.5-4.5); Potassium 3.9 mmol/L (3.4-5.0); Sodium 136 mmol/L (137-145)
[2022-11-13 15:12] LABS: Creatinine Urine 68.8 mg/dL; Total Protein Urine Random 37 mg/dL; Ur Ttl Prot Creatinine Ratio 0.54 mg/mg (0-0.20)
[2022-11-13 15:32] LABS: Vitamin D 25 Hydroxy 49.2 ng/mL
[2022-11-13 15:38] LABS: Parathyroid Intact 121.4 pg/mL (7.5-53.5)
== END 2022-11-13 13:08 | disposition home or self-care (01) ==
PROVIDERS: PCP Family Medicine Adolescent Medicine; Visit Provider Internal Medicine Nephrology
DX: N25.81 Secondary hyperparathyroidism of renal origin (principal); I12.9 Hypertensive chronic kidney disease with stage 1 through stage 4 chronic kidney disease, or unspecified chronic kidney disease; N18.31 Chronic kidney disease, stage 3a; E55.9 Vitamin D deficiency, unspecified
CPT/HCPCS: 36415; 80069; 82306; 82570; 83970; 84156

== ENCOUNTER 2023-04-09 07:24 | Outpatient (CLI) | payer MEDICARE, MEDICAID, SELFPAY ==
[2023-04-09 07:58] LABS: Hematocrit 38.4 % (42.0-52.0); Hemoglobin 12.6 g/dL (14.0-18.0); Mean Corpuscular HGB Conc 32.8 g/dl (32-36); Mean Corpuscular Hemoglobin 29.9 pg (26-34); Mean Platelet Volume 10.7 fl (7.4-10.4); Platelet Count Result 143 k/mm3 (150-375); Red Blood Count 4.22 M/mm3 (4.6-6.20); Red Cell Distribution Width 13.2 % (11.5-14.5); White Blood Count 6.3 K/mm3 (4.5-10.0)
[2023-04-09 08:11] LABS: Alanine Aminotransferase 23 U/L (6-50); Albumin Level 4.1 g/dL (3.5-5.1); Alkaline Phosphatase 75 U/L (38-126); Anion Gap 9 mmol/L (8-16); Aspartate Amino Transferase 32 U/L (17-59); Bilirubin,Total 0.9 mg/dL (0.2-1.3); Blood Urea Nitrogen 32 mg/dL (9-20); Carbon Dioxide 26 mmol/L (22-30); Chloride 104 mmol/L (98-107); Cholesterol 109 mg/dL (0-200); Estimated Glomerular Filt Rate 40; Glucose 170 mg/dL (65-110); HDL Direct 36 mg/dL; Potassium 3.9 mmol/L (3.4-5.0); Sodium 139 mmol/L (137-145); Triglycerides 104 mg/dL (<150)
[2023-04-09 08:12] LABS: Albumin Level 4.1 g/dL (3.5-5.1); Anion Gap 7 mmol/L (8-16); Blood Urea Nitrogen 32 mg/dL (9-20); Calcium 8.9 mg/dL (8.4-10.2); Carbon Dioxide 25 mmol/L (22-30); Chloride 106 mmol/L (98-107); Estimated Glomerular Filt Rate 40; Glucose 168 mg/dL (65-110); Phosphorus 3.1 mg/dL (2.5-4.5); Potassium 3.8 mmol/L (3.4-5.0); Sodium 138 mmol/L (137-145)
[2023-04-09 08:22] LABS: LDL Cholesterol Direct 59 mg/dL; Parathyroid Intact 36.2 pg/mL (7.5-53.5)
[2023-04-09 08:30] LABS: Creatinine Urine 105.4 mg/dL; Total Protein Urine Random 54 mg/dL; Ur Ttl Prot Creatinine Ratio 0.51 mg/mg (0-0.20)
[2023-04-09 08:58] LABS: Creatinine Urine 104.9 mg/dL
[2023-04-09 09:29] LABS: MALB Creatinine Ratio 241.2 mg/g (0-30)
== END 2023-04-09 07:25 | disposition home or self-care (01) ==
PROVIDERS: PCP Family Medicine Adolescent Medicine; Referring Provider Internal Medicine Nephrology; Visit Provider Family Medicine Adolescent Medicine
DX: I12.9 Hypertensive chronic kidney disease with stage 1 through stage 4 chronic kidney disease, or unspecified chronic kidney disease (principal); N18.32 Chronic kidney disease, stage 3b; N25.81 Secondary hyperparathyroidism of renal origin; D50.9 Iron deficiency anemia, unspecified; E11.22 Type 2 diabetes mellitus with diabetic chronic kidney disease; E78.5 Hyperlipidemia, unspecified; N18.30 Chronic kidney disease, stage 3 unspecified; E78.2 Mixed hyperlipidemia; K21.9 Gastro-esophageal reflux disease without esophagitis
CPT/HCPCS: 36415; 80053; 80061; 80069; 82043; 82570; 83036; 83970; 84156; 85027

== ENCOUNTER 2023-04-20 07:14 | Outpatient (CLI) | payer MEDICARE, MEDICAID, SELFPAY ==
--- NOTE | ~2023-04-20 | US_ITS ---
EXAMINATION: US soft tissue abdomen DATE: 04/20/2023 07:58 INDICATION: Left abdominal mass. TECHNIQUE: Multiple grayscale and Doppler ultrasound images of the abdomen were obtained. COMPARISON: CT abdomen and pelvis 11/16/2019 FINDINGS: There is chronic borderline splenomegaly, which may be secondary to obesity. In the patient 's area of concern inferior to the spleen, there is a peripherally echogenic shadowing mass that may be bowel or a calcified mass. IMPRESSION: 1. Indeterminate mass in left abdomen inferior to the spleen. Abdomen and pelvis CT with contrast is recommended. Reviewed, dictated and finalized at location A. 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 Indeterminate mass in left abdomen inferior to the spleen. Abdomen and pelvi s CT with contrast is recommended.
== END 2023-04-20 07:15 | disposition home or self-care (01) ==
PROVIDERS: PCP Family Medicine Adolescent Medicine
DX: R10.9 Unspecified abdominal pain (principal)
CPT/HCPCS: 76705

== ENCOUNTER 2023-05-18 21:06 | Inpatient (IN) | payer MEDICARE, SELFPAY ==
[2023-05-18] VITALS (13 sets, daily range): BP systolic 146–226; BP diastolic 82–103; PULSE 69–79; RESP 12–18; TEMP 36.4; O2SAT 91–100
--- NOTE | ~2023-05-18 | XR_ITS ---
EXAMINATION: XR chest 1V INDICATION: Pain after fall TECHNIQUE: AP view of the chest is obtained. COMPARISON: 07/28/2022 FINDINGS: The lungs are free of acute opacities. No pleural effusion or pneumothorax. The cardiomedia stinal silhouette is normal. Changes of thoracic fusion procedure are noted. IMPRESSION: 1. No acute cardiopulmonary abnormality. Reviewed, dictated and finalized at location F.
--- NOTE | ~2023-05-18 | XR_ITS ---
EXAMINATION: XR hip LT 2V w AP pelvis INDICATION: Left hip pain, initial encounter TECHNIQUE: AP view the pelvis and two views of the left hip are obtained. COMPARISON: 06/04/2022 FINDINGS: There is an acute, nondisplaced intertrochanteric fracture of the left femur. The femoral h ead is well-seated in the acetabulum. There is mild osteoarthritis of the hips. There is antegrade in tramedullary woody and interlocking intratrochanteric screw fixation of the right femur. Changes of lum bosacral fusion and right sacroiliac joint fusion are noted. Calcified atherosclerosis is noted. IMPRESSION: 1. Acute intertrochanteric left femur fracture. Reviewed, dictated and finalized at location F.
--- NOTE | ~2023-05-18 | XR_ITS ---
XR surgery orthopedic Indication: Left IT nail placement TECHNIQUE: Fluoroscopy used during Left IT nail placement performed by [Toi Marquez MD] on 05/20/2023. 3 minutes 7 seconds fluoroscopy with 4 fluoroscopic images captured. FINDINGS: Correlate with procedure note. IMPRESSION: Fluoroscopy used during Left IT nail placement. Reviewed, dictated and finalized at location B.
--- NOTE | 2023-05-18 22:30 | ECG_ITS ---
Measurements Intervals [place] Rate: 69 P: 66 AK: 158 QRS: 46 QRSD: 154 T: 39 QT: 422 QTc: 453 Interpretive Statements SINUS RHYTHM RIGHT BUNDLE BRANCH BLOCK BASELINE ARTIFACT- I, III, AVR, AVL, AVF ABNORMAL ECG COMPARED TO ECG 05/10/2021 10:23:38 NO SIGNIFICANT CHANGES Electronically Signed On 05-19-2023 6:22:42 CDT by Abrahan Felipe D.O.
[2023-05-18] MEDS: ONDANSETRON INJ 4 MG/2 ML VIAL IV PUSH (22:54)
[2023-05-18] MEDS: MORPHINE SULFATE (*CRX) 4 MG/ML INJ IV PUSH (22:54)
[2023-05-18 23:00] LABS: Basophils Percent Auto 0.3 % (0.2-1.2); Eosinophils Absolute Auto 0.2 K/mm3 (0-0.3); Hematocrit 36.5 % (42.0-52.0); Hemoglobin 12.1 g/dL (14.0-18.0); Immature Granulocyte Absolute 0.05 K/mm3 (0.00-0.031); Immature Granulocyte Percent A 0.7 % (0-0.5); Immature Platelet Fraction Pct 4.2 % (0.9-11.2); Lymphocytes Absolute Auto 1.24 K/mm3 (0.9-3.2); Lymphocytes Percent Auto 18.5 % (18.3-44.2); Mean Corpuscular HGB Conc 33.2 g/dl (32-36); Mean Corpuscular Hemoglobin 29.8 pg (26-34); Mean Corpuscular Volume 89.9 fl (80-100); Mean Platelet Volume 10.7 fl (7.4-10.4); Monocytes Absolute Auto 0.5 K/mm3 (0.1-0.6); Monocytes Percent Auto 6.7 % (2.6-8.5); Neutrophils Absolute Auto 4.7 K/mm3 (1.3-6.7); Neutrophils Percent Auto 70.8 % (45.5-73.1); Platelet Count Result 133 k/mm3 (150-375); Red Blood Count 4.06 M/mm3 (4.6-6.20); Red Cell Distribution Width 12.8 % (11.5-14.5); White Blood Count 6.7 K/mm3 (4.5-10.0)
--- NOTE | 2023-05-18 23:05 | ED.FALL ---
HPI - Fall General Chief Complaint: Fall <Larissa Botello PA-C - Last Filed: 05/19/23 00:01> Stated Complaint: fall <Larissa Botello PA-C - Last Filed: 05/19/23 00:01> Time Seen by Provider: 05/18/23 21:41 <Larissa Botello PA-C - Last Filed: 05/19/23 00:01> Source: patient <MANDY Ferrer Last Filed: 05/19/23 00:01> Mode of arrival: EMS <Larissa Botello PA-C - Last Filed: 05/19/23 00:01> Limitations: no limitations <Larissa Botello PA-C - Last Filed: 05/19/23 00:01> History of Present Illness HPI Narrative: patient is a 73-year-old male who presents the ED via EMS with report of a fall. Patient reports he was sitting on the side of bed and slipped, falling onto his left side. He complains of pain to his left hip. Unable to get up off the ground. EMS was called. Denies any other injuries. Denies head injury or LOC. Denies numbness or tingling. Patient has history of right hip ORIF done within the last few years by Dr. Marquez. Patient takes an aspirin 81 mg daily. No other blood thinners. <Larissa Botello PA-C - Last Filed: 05/19/23 00:01> Related Data Home Medications: Home Medications Medication Instructions Recorded Confirmed brimonidine 0.2 % eye drops 1 drp ophthalmic (eye) DAILY 07/11/19 05/19/23 tamsulosin 0.4 mg capsule 0.8 mg PO QHS 03/06/21 05/19/23 B-complex with vitamin C 1 tablet PO DAILY 04/01/21 05/19/23 ascorbic acid (vitamin C) 500 mg 500 mg PO DAILY 04/01/21 05/19/23 tablet latanoprost 0.005 % eye drops 1 drp EACH EYE HS 04/01/21 05/19/23 pseudoephedrine HCl 120 mg 120 mg PO Q12H PRN Congestion 04/01/21 05/19/23 tablet,extended release ([employer] D) zinc 50 mg tablet 50 mg PO DAILY 04/01/21 05/19/23 aspirin 81 mg tablet,delayed 81 mg PO DAILY 05/21/22 05/19/23 release magnesium 200 mg tablet 200 mg PO DAILY 05/21/22 05/19/23 acetaminophen 500 mg capsule 1,000 mg PO Q6H PRN Pain (Scale 04/07/23 05/19/23 Score 1-3) timolol maleate 0.5 % eye drops 1 drp EACH EYE DAILY 05/19/23 05/19/23 <Larissa Botello PA-C - Last Filed: 05/19/23 00:01> Allergies/Adverse Reactions: Allergies Allergy/AdvReac Type Severity Reaction Status Date / Time antihistamines AdvReac Unknown Drowsy Uncoded 04/27/23 10:14 <Larissa Botello PA-C - Last Filed: 05/19/23 00:01> Review of Systems Review of Systems: CONSTITUTIONAL: Denies fever, chills, or sweats. MUSCULOSKELETAL: see HPI. NEUROLOGIC: See HPI. <Larissa Botello PA-C - Last Filed: 05/19/23 00:01> All systems reviewed & are unremarkable except as noted in HPI and below <Larissa Botello PA-C - Last Filed: 05/19/23 00:01> COUNT INCLUDES THE [facility] Past Medical History Medical History: Medical History Arthritis Atrial fib/flutter, transient BPH with obstruction/lower urinary tract symptoms (Unknown) CHF (congestive heart failure) Chronic pain Closed fracture of right hip (04/11/21) Decreased final inspector shuttle strength of left hand Decreased final inspector shuttle strength of right hand Diabetes mellitus Femur fracture, right (04/11/21) GERD (gastroesophageal reflux disease) (Unknown) History of alcohol abuse Hyperlipidemia (Unknown) Hypokalemia (Unknown) Knee effusion, right Left hand pain Low back pain, unspecified Mild persistent asthma, uncomplicated Numbness and tingling in both hands Numbness and tingling in left hand Osteoporosis Polyneuropathy, unspecified Primary open-angle glaucoma, bilateral, moderate stage Pulmonary embolism Stage 3b chronic kidney disease (CKD) UTI (urinary tract infection), bacterial Wears glasses <Larissa Botello PA-C - Last Filed: 05/19/23 00:01> Surgical History Surgical History: Surgical History History of hip surgery Right hip by [facility] 2021 History of knee surgery History of penile i
[2023-05-18 23:12] LABS: Appearance Urine Clear (Clear); Bilirubin Urine Negative (Negative); Blood Urine Negative (Negative); Color Urine Yellow (Yellow); Glucose Urine UA Negative (Negative); Ketones Urine Negative (Negative); Leukocyte Esterase Ur 1+ LEU/UL (Negative); Nitrate Urine Negative (Negative); Protein Urine 1+ mg/dL (Negative); Specific Grav Ur 1.015 (1.001-1.035)
[2023-05-18 23:13] LABS: Prothrombin Time 13.9 Seconds (11.1-14.7)
[2023-05-18 23:14] LABS: Partial Thromboplastin Time 27.9 Seconds (22.3-36.8)
[2023-05-18 23:15] LABS: Bacteria Urine 1+ /hpf; Non Pathogenic Casts 0-2; RBC Urine 0-2 /hpf (0-2); Squamous Epithelial Cell Urine None Seen /hpf (Few); WBC Urine 21-50 /hpf (0-3)
[2023-05-18 23:16] LABS: Alanine Aminotransferase 35 U/L (6-50); Albumin Level 3.8 g/dL (3.5-5.1); Alkaline Phosphatase 73 U/L (38-126); Anion Gap 6 mmol/L (8-16); Aspartate Amino Transferase 40 U/L (17-59); Bilirubin,Total 0.8 mg/dL (0.2-1.3); Blood Urea Nitrogen 31 mg/dL (9-20); Calcium 8.9 mg/dL (8.4-10.2); Carbon Dioxide 26 mmol/L (22-30); Chloride 105 mmol/L (98-107); Estimated CRCL calculation 40 ml/min; Estimated Glomerular Filt Rate 46; Glucose 147 mg/dL (65-110); Potassium 3.7 mmol/L (3.4-5.0); Sodium 137 mmol/L (137-145)
[2023-05-18 23:27] LABS: Add Urine Microscopic? YES
--- NOTE | 2023-05-18 23:57 | PM.IMHP ---
H&P: HPI History of Present Illness Date/Time: 05/18/23 23:57 Chief Complaint: fall Narrative: this is a 73-year-old male with past medical history significant for GERD, type diabetes mellitus, peripheral diabetic neuropathy, benign prostatic hyperplasia, congestive heart failure, chronic pain, history of alcohol abuse, low back pain chronic kidney disease. Patient was brought to the emergency room via EMS he fell out of his bed landing on his left hip was unable to get back up on his own, patient has been in his usual state of health, denies any loss of consciousness, no fevers, no rigors, no chills, no nausea, no vomiting. Preliminary workup in emergency room was significant for hip x-ray which shows intertrochanteric fracture of the left hip. Patient has been admitted for further evaluation management and treatment. EXAMINATION: XR hip LT 2V w AP pelvis INDICATION: Left hip pain, initial encounter TECHNIQUE: AP view the pelvis and two views of the left hip are obtained. COMPARISON: 06/04/2022 FINDINGS: There is an acute, nondisplaced intertrochanteric fracture of the left femur. The femoral head is well-seated in the acetabulum. There is mild osteoarthritis of the hips. There is antegrade intramedullary woody and interlocking intratrochanteric screw fixation of the right femur. Changes of lumbosacral fusion and right sacroiliac joint fusion are noted. Calcified atherosclerosis is noted. IMPRESSION: 1. Acute intertrochanteric left femur fracture. EXAMINATION: XR chest 1V INDICATION: Pain after fall TECHNIQUE: AP view of the chest is obtained. COMPARISON: 07/28/2022 FINDINGS: The lungs are free of acute opacities. No pleural effusion or pneumothorax. The cardiomediastinal silhouette is normal. Changes of thoracic fusion procedure are noted. IMPRESSION: 1. No acute cardiopulmonary abnormality. Review of Systems Review of Systems: Fall unable to bear weight on the left leg, pain of the left hip Constitutional: Constitutional: Denies chills, Denies fatigue, Denies fever(s), Denies malaise and Denies night sweats Eyes: Eyes: Denies change in vision ENT: Denies dysphagia, Denies vertigo, Denies dizziness and Denies odynophagia Cardiovascular: Cardiovascular: Denies chest pain, Denies radiating jaw, neck or arm pain and Denies palpitations Respiratory: Respiratory: Denies chest congestion, Denies cough, Denies excessive phlegm production and Denies dyspnea Gastrointestinal: Gastrointestinal: Denies abdominal pain, Denies dyspepsia, Denies diarrhea, Denies nausea and Denies vomiting Genitourinary: Genitourinary: Denies dysuria Musculoskeletal: Musculoskeletal: Reports deformity, Reports arthralgias ( left hip) and Reports limited range of motion Integumentary/Breasts: Skin/Breast: Denies rash Neurologic: Denies focal weakness and Denies Sensory deficit (Neuro) Psychiatric: Psychiatric: Reports no additional psychiatric complaints and Reports as per HPI Endocrine: Endocrine: Denies cold intolerance, Denies fatigue, Denies flushing, Denies heat intolerance, Denies polyphagia, Denies polydipsia, Denies polyuria and Denies palpitations Hematologic/Lymphatic: Hematologic/Lymphatic: Reports no additional hematologic/lymphatic complaints and Reports as per HPI Allergic/Immunologic: Allergic/Immunologic: Reports no additional allergic/immunologic complaints and Reports as per HPI PMFSH Past Medical History Medical History Arthritis Atrial fib/flutter, transient BPH with obstruction/lower urinary tract symptoms (Unknown) CHF (congestive heart failure) Chronic pain Closed fracture of right hip (04/11/21) Decreased jointer submarine cable strength of left hand Decreased jointer submarine cable strength of right hand Diabetes mellitus Femur fracture, right (04/11/21) GERD (gastroesophageal reflux disease) (Unknown) History of alcohol abuse Hyperlipidemia (Unknown) Hypokalemia (Unknown)
[2023-05-19] VITALS (19 sets, daily range): BP systolic 95–145; BP diastolic 59–78; PULSE 76–110; RESP 13–20; TEMP 36.4–37.3; O2SAT 84–98; BMI 27.3
--- NOTE | 2023-05-19 02:08 | ADMGEN ---
This patient, Santi Torrez, was admitted to 3 [facility] Surg Room 322-01. Patient/family oriented to hospital policies and general routines including ID bracelet, bed and alarms, visiting hours, pain management, procedures, bathroom and other care routines, personal items, smoking policy, room service/diet, and visiting hours. Information on how to activate the Rapid Response Team has been discussed. Patient/Family are encouraged to report perceived risks to care and to ask questions if they do not understand what they are told or what they should do.
[2023-05-19] MEDS: MORPHINE SULFATE (*CRX) 4 MG/ML INJ IV PUSH ×3 (02:25→11:47)
[2023-05-19 11:38] LABS: Glucose Point of Care 138 mg/dl (65-105)
--- NOTE | 2023-05-19 13:30 | P.PNIM_ITS ---
Progress Note: A&P Assessment and Plan (1) UTI (urinary tract infection): Qualifiers: Hematuria presence: without hematuria Urinary tract infection type: acute cystitis Qualified Code(s): N30.00 - Acute cystitis without hematuria Code(s): N39.0 - Urinary tract infection, site not specified Status: Acute Assessment and Plan: 05/19/2023: * UA showing 1+ urine protein, 1+ leukocytes, 21-50 urine wbc's, 1+ bacteria * urine culture obtained and pending * continue Rocephin (2) Closed intertrochanteric fracture of left hip: Qualifiers: Encounter type: initial encounter Fracture alignment: nondisplaced Qualified Code(s): S72.145A - Nondisplaced intertrochanteric fracture of left femur, initial encounter for closed fracture Code(s): S72.142A - Displaced intertrochanteric fracture of left femur, initial encounter for closed fracture Status: Acute Assessment and Plan: 05/18/2023: admit to regular medical floor bed rest ortho consult pain management 05/19/2023: * hip and pelvis x-ray showing acute intertrochanteric left femur fracture, nondisplaced * SCDs ordered, hold anticoagulation until after ortho consult * ortho consulted and plans to take patient to the OR tomorrow 2:00 p.m. for an IM pinning left hip * Adjusted his pain medication to 0.5 of Dilaudid every 4 hours as needed for pain, I discontinued the morphine 4 mg q.2 hours, and I increased his Tylenol to 1 g that can be given tonight up until midnight. * continue with bed rest orders * Case management working on placement at [facility] program for rehab needs postop (3) Accidental fall from bed: Qualifiers: Encounter type: initial encounter Qualified Code(s): W06.XXXA - Fall from bed, initial encounter Code(s): W06.XXXA - Fall from bed, initial encounter Status: Acute Assessment and Plan: 05/18/2023: no loss of consciousness fall precautions 05/19/2023: * fall precautions * consider PT and OT after ortho evaluation (4) Sepsis: Code(s): A41.9 - Sepsis, unspecified organism Status: Acute Assessment and Plan: 05/19/23: * Meeting sepsis criteria with increased HR, increased WBC, and known source of infection/UTI. However his increased white blood cell count can be due to inflammatory response and heart rate can be due to elevated pain level. So sepsis is less likely * Urine culture obtained and is pending * Lactic acid normal * VSS, low grade temp, currently on room air * Continue with Rocephin * Will obtain blood cultures however this is after he received antibiotics. (5) Type 2 diabetes mellitus with chronic kidney disease: Code(s): E11.22 - Type 2 diabetes mellitus with diabetic chronic kidney disease Status: Chronic Assessment and Plan: 05/19/2023: * blood sugars ranging 138-147 * last hemoglobin A1c on 04/09/2023 shows 6.0 * will hold glimepiride * low-dose sliding scale insulin ordered * Accu-Cheks AC and HS * hypoglycemic protocol in place (6) Stage 3b chronic kidney disease (CKD): Code(s): N18.32 - Chronic kidney disease, stage 3b Status: Chronic Assessment and Plan: 05/19/2023: * BUN 31, creatinine 1.5 on admission which is at his baseline * Creatinine now 2.4 on labs today, DEISY superimposed on chronic kidney disease (7) GERD (gastroesophageal reflux disease): Onset Date: Unknown Qualifiers: Esophagitis presence: without esophagitis Qualified Code(s): K21.9 - Gastro-esoph
--- NOTE | 2023-05-19 13:30 | PM.IMPN ---
Progress Note: A&P Assessment and Plan (1) UTI (urinary tract infection): Qualifiers: Hematuria presence: without hematuria Urinary tract infection type: acute cystitis Qualified Code(s): N30.00 - Acute cystitis without hematuria Code(s): N39.0 - Urinary tract infection, site not specified Status: Acute Assessment and Plan: 05/19/2023: UA showing 1+ urine protein, 1+ leukocytes, 21-50 urine wbc's, 1+ bacteria urine culture obtained and pending continue Rocephin (2) Closed intertrochanteric fracture of left hip: Qualifiers: Encounter type: initial encounter Fracture alignment: nondisplaced Qualified Code(s): S72.145A - Nondisplaced intertrochanteric fracture of left femur, initial encounter for closed fracture Code(s): S72.142A - Displaced intertrochanteric fracture of left femur, initial encounter for closed fracture Status: Acute Assessment and Plan: 05/18/2023: admit to regular medical floor bed rest ortho consult pain management 05/19/2023: hip and pelvis x-ray showing acute intertrochanteric left femur fracture, nondisplaced SCDs ordered, hold anticoagulation until after ortho consult ortho consulted and plans to take patient to the OR tomorrow 2:00 p.m. for an IM pinning left hip Adjusted his pain medication to 0.5 of Dilaudid every 4 hours as needed for pain, I discontinued the morphine 4 mg q.2 hours, and I increased his Tylenol to 1 g that can be given tonight up until midnight. continue with bed rest orders Case management working on placement at [facility] program for rehab needs postop (3) Accidental fall from bed: Qualifiers: Encounter type: initial encounter Qualified Code(s): W06.XXXA - Fall from bed, initial encounter Code(s): W06.XXXA - Fall from bed, initial encounter Status: Acute Assessment and Plan: 05/18/2023: no loss of consciousness fall precautions 05/19/2023: fall precautions consider PT and OT after ortho evaluation (4) Sepsis: Code(s): A41.9 - Sepsis, unspecified organism Status: Acute Assessment and Plan: 05/19/23: Meeting sepsis criteria with increased HR, increased WBC, and known source of infection/UTI. However his increased white blood cell count can be due to inflammatory response and heart rate can be due to elevated pain level. So sepsis is less likely Urine culture obtained and is pending Lactic acid normal VSS, low grade temp, currently on room air Continue with Rocephin Will obtain blood cultures however this is after he received antibiotics. (5) Type 2 diabetes mellitus with chronic kidney disease: Code(s): E11.22 - Type 2 diabetes mellitus with diabetic chronic kidney disease Status: Chronic Assessment and Plan: 05/19/2023: blood sugars ranging 138-147 last hemoglobin A1c on 04/09/2023 shows 6.0 will hold glimepiride low-dose sliding scale insulin ordered Accu-Cheks AC and HS hypoglycemic protocol in place (6) Stage 3b chronic kidney disease (CKD): Code(s): N18.32 - Chronic kidney disease, stage 3b Status: Chronic Assessment and Plan: 05/19/2023: BUN 31, creatinine 1.5 on admission which is at his baseline Creatinine now 2.4 on labs today, DEISY superimposed on chronic kidney disease (7) GERD (gastroesophageal reflux disease): Onset Date: Unknown Qualifiers: Esophagitis presence: without esophagitis Qualified Code(s): K21.9 - Gastro-esophageal reflux disease without esophagitis Code(s): K21.9 - Gastro-esophageal reflux disease without esophagitis Status: Chronic Assessment and Plan: 05/19/2023: continue Protonix Time Spent With Patient Time with patient: Greater than 35 minutes Subjective Date/time seen: 05/19/23 13:30 Interval history: This is a 73-year-old male who presented to the hospital on 05/18/2023 fo
[2023-05-19 15:04] LABS: Basophils Absolute Auto 0.1 K/mm3 (0.0-0.1); Basophils Percent Auto 0.6 % (0.2-1.2); Eosinophils Absolute Auto 0.3 K/mm3 (0-0.3); Eosinophils Percent Auto 2.1 % (0-4.4); Hematocrit 40.6 % (42.0-52.0); Hemoglobin 12.7 g/dL (14.0-18.0); Immature Granulocyte Percent A 0.6 % (0-0.5); Lymphocytes Absolute Auto 1.89 K/mm3 (0.9-3.2); Lymphocytes Percent Auto 12.2 % (18.3-44.2); Mean Corpuscular HGB Conc 31.3 g/dl (32-36); Mean Corpuscular Hemoglobin 29.3 pg (26-34); Mean Corpuscular Volume 93.8 fl (80-100); Mean Platelet Volume 10.9 fl (7.4-10.4); Monocytes Absolute Auto 1.5 K/mm3 (0.1-0.6); Monocytes Percent Auto 9.9 % (2.6-8.5); Neutrophils Absolute Auto 11.5 K/mm3 (1.3-6.7); Neutrophils Percent Auto 74.6 % (45.5-73.1); Platelet Count Result 152 k/mm3 (150-375); Red Blood Count 4.33 M/mm3 (4.6-6.20); Red Cell Distribution Width 13.2 % (11.5-14.5); White Blood Count 15.5 K/mm3 (4.5-10.0)
[2023-05-19 15:18] LABS: Alanine Aminotransferase 38 U/L (6-50); Albumin Level 4.2 g/dL (3.5-5.1); Alkaline Phosphatase 68 U/L (38-126); Anion Gap 8 mmol/L (4-12); Aspartate Amino Transferase 42 U/L (17-59); Bilirubin,Total 1.1 mg/dL (0.2-1.3); Blood Urea Nitrogen 36 mg/dL (9-20); Carbon Dioxide 26 mmol/L (22-30); Chloride 103 mmol/L (98-107); Estimated CRCL calculation 26 ml/min; Estimated Glomerular Filt Rate 27; Glucose 173 mg/dL (65-110); Magnesium 2.1 mg/dL (1.6-2.3); Potassium 4.5 mmol/L (3.4-5.0); Sodium 137 mmol/L (137-145)
[2023-05-19 16:22] LABS: Glucose Point of Care 166 mg/dl (65-105)
[2023-05-19] MEDS: SODIUM CHLORIDE 0.9% IV 1,000 ML 100 ML IV CONT (17:29)
[2023-05-19 18:03] LABS: Hemoglobin A1C 6.5 % (<5.7)
--- NOTE | 2023-05-19 19:37 | PM.CNOR ---
Assessment and Plan Assessment and plan (1) Closed intertrochanteric fracture of left hip: Qualifiers: Encounter type: initial encounter Fracture alignment: nondisplaced Qualified Code(s): S72.145A - Nondisplaced intertrochanteric fracture of left femur, initial encounter for closed fracture Code(s): S72.142A - Displaced intertrochanteric fracture of left femur, initial encounter for closed fracture Status: Acute Assessment and Plan: APRIL IS HERE FOR EVALUATION OF HIS LEFT HIP AFTER A FALL. HE HAS PAIN AND SWELLING. XRAYS SHOW A DISPLACED INTERTROCHANTERIC FEMUR FRACTURE. RECOMMEND IM CASS LEFT FEMUR. HISTORY, EXAM AND RADIOGRAPHS REVIEWED WITH THE PATIENT. REFERRING PHYSICIAN RECORDS AND IMAGES REVIEWED. CONDITION, NATURE, ETIOLOGY AND COURSE OF NATURAL HISTORY REVIEWED. CONSERVATIVE AND OPERATIVE TREATMENT OPTIONS REVIEWED WELL THE RISKS AND BENEFITS OF EACH. DISCUSSED NONOPERATIVE AND OPERATIVE TREATMENT OPTIONS WITH THE PATIENT. THE PATIENT'S QUESTIONS WERE ANSWERED. THE PATIENT DESIRES OPERATIVE TREATMENT. DISCUSSED ____INSWERTION OF IM CASS LEFT FEMUR . RISKS OF SURGERY INCLUDING BUT NOT LIMITED TO NEUROVASCULAR DAMAGE, WOUND COMPLICATIONS, BLOOD CLOT, PULMONARY EMBOLUS, STROKE, [place], ANESTHETIC RISKS UP TO AND INCLUDING WERE REVIEWED. CONTINUED PAIN AND POSSIBLE DYSFUNCTION WERE EXPLAINED. NO GUARANTEES WERE OFFERED. THE PATIENT UNDERSTANDS AND WISHES TO PROCEED. WE WILL PROCEED ONCE HE HAS BEEN CLEARED BY INTERNAL MEDICINE. History of Present Illness HPI Consult date: 05/19/23 Chief complaint: L intertrochanteric femur fx, Fall from bed, UTI Narrative: APRIL WAS SENT TO [facility] AFTER A FALL OUT OF BED. HE INJURED HIS LEFT HIP. HE NOW HAS A LEFT INTERTOCHANTERIC HIP FRACTURE. HE DENIES ANY OTHER PAIN. HE HAS NO NECK BACK OR OTHER EXTREMITY PAIN. HISTORY, EXAM AND RADIOGRAPHS REVIEWED WITH THE PATIENT. REFERRING PHYSICIAN RECORDS AND IMAGES REVIEWED. CONDITION, NATURE, ETIOLOGY AND COURSE OF NATURAL HISTORY REVIEWED. CONSERVATIVE AND OPERATIVE TREATMENT OPTIONS REVIEWED WELL THE RISKS AND BENEFITS OF EACH. 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 Decreased lidar scientist strength of right hand Diabetes mellitus Femur fracture, right (04/11/21) GERD (gastroesophageal reflux disease) (Unknown) History of alcohol abuse Hyperlipidemia (Unknown) Hypokalemia (Unknown) Knee effusion, right Left hand pain Low back pain, unspecified Mild persistent asthma, uncomplicated Numbness and tingling in both hands Numbness and tingling in left hand Osteoporosis Polyneuropathy, unspecified Primary open-angle glaucoma, bilateral, moderate stage Pulmonary embolism Stage 3b chronic kidney disease (CKD) UTI (urinary tract infection), bacterial Wears glasses Surgical History Surgical History History of hip surgery Right hip by [facility] 2021 History of knee surgery History of penile implant Previous back surgery Family History Family History Father CAD (coronary artery disease) Alzheimer disease Acute myocardial infarction Heart disease Hypertension Mother Alzheimer disease Hypertension Other Diabetes mellitus Social History Social History Social History: The patient is a lifelong nonsmoker. The patient does not use any alcohol marijuana or illicit drugs. 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 He is . He
[2023-05-19 20:36] LABS: Glucose Point of Care 154 mg/dl (65-105)
[2023-05-19] MEDS: TAMSULOSIN HCL 0.4 MG CAPSULE 0.8 MG PO (21:00)
[2023-05-20] VITALS (15 sets, daily range): BP systolic 109–169; BP diastolic 69–96; PULSE 83–100; RESP 13–20; TEMP 36.6–37.3; O2SAT 81–100
[2023-05-20] MEDS: SODIUM CHLORIDE 0.9% IV 1,000 ML 100 ML IV CONT (04:36)
[2023-05-20] MEDS: HYDROmorphone HCL INJ (*CRX) 1 MG/ML SYR 0.5 MG IV PUSH ×2 (04:37→08:53)
[2023-05-20 05:25] LABS: Glucose Point of Care 164 mg/dl (65-105)
--- NOTE | 2023-05-20 07:15 | WPDHPUPDATE1 ---
History and Physical Update Update Date/Time: 05/20/23 07:15 History and Physical has been reviewed, including an updated exam of the patient. There are NO changes in the patient's condition. Risks, benefits, and alternatives have been discussed and questions answered. Patient agrees to proceed with procedure.
--- NOTE | 2023-05-20 07:23 | P.PNIM_ITS ---
Progress Note: A&P Assessment and Plan (1) UTI (urinary tract infection): Qualifiers: Hematuria presence: without hematuria Urinary tract infection type: acute cystitis Qualified Code(s): N30.00 - Acute cystitis without hematuria Code(s): N39.0 - Urinary tract infection, site not specified Status: Acute Assessment and Plan: 05/19/2023: * UA showing 1+ urine protein, 1+ leukocytes, 21-50 urine wbc's, 1+ bacteria * urine culture obtained and pending * continue Rocephin 05/20/23: * Urine culture shown greater than 100,000 g positive organisms, none uropathogenic * Patient denies any urinary complaints * We will DC Rocephin (2) Closed intertrochanteric fracture of left hip: Qualifiers: Encounter type: initial encounter Fracture alignment: nondisplaced Qualified Code(s): S72.145A - Nondisplaced intertrochanteric fracture of left femur, initial encounter for closed fracture Code(s): S72.142A - Displaced intertrochanteric fracture of left femur, initial encounter for closed fracture Status: Acute Assessment and Plan: 05/18/2023: admit to regular medical floor bed rest ortho consult pain management 05/19/2023: * hip and pelvis x-ray showing acute intertrochanteric left femur fracture, nondisplaced * SCDs ordered, hold anticoagulation until after ortho consult * ortho consulted and plans to take patient to the OR tomorrow 2:00 p.m. for an IM pinning left hip * Adjusted his pain medication to 0.5 of Dilaudid every 4 hours as needed for pain, I discontinued the morphine 4 mg q.2 hours, and I increased his Tylenol to 1 g that can be given tonight up until midnight. * continue with bed rest orders * Case management working on placement at [facility] for rehab needs postop 05/20/23: * Continue pain control * Plan for IM pinning to left hip around 2:00 p.m. today with orthopedic services * Case management working on approval 1st on swing bed program for rehab needs postop * Will order PT and OT for tomorrow * Continue bed rest for now, will increase activity orders tomorrow (3) Accidental fall from bed: Qualifiers: Encounter type: initial encounter Qualified Code(s): W06.XXXA - Fall from bed, initial encounter Code(s): W06.XXXA - Fall from bed, initial encounter Status: Acute Assessment and Plan: 05/18/2023: no loss of consciousness fall precautions 05/19/2023: * fall precautions * consider PT and OT after ortho evaluation 05/20/23: * PT and OT ordered for evaluation and treatment postop (4) Sepsis: Code(s): A41.9 - Sepsis, unspecified organism Status: Acute Assessment and Plan: 05/19/23: * Meeting sepsis criteria with increased HR, increased WBC, and known source of infection/UTI. However his increased white blood cell count can be due to inf lammatory response and heart rate can be due to elevated pain level. So sepsis is less likely * Urine culture obtained and is pending * Lactic acid normal * VSS, low grade temp, currently on room air * Continue with Rocephin * Will obtain blood cultures however this is after he received antibiotics. 05/20/23: * Urine culture showing greater than 100,000 g positive organisms * Patient denies any urinary tract infection and Rocephin was DC * Blood cultures are showing no growth to date * White blood cell count down to 10.3, likely inflammatory response * Vital signs are stable, he is afebrile, he is currently on 2 L nasal cannula * Will order an incentive
--- NOTE | 2023-05-20 07:23 | PM.IMPN ---
Progress Note: A&P Assessment and Plan (1) UTI (urinary tract infection): Qualifiers: Hematuria presence: without hematuria Urinary tract infection type: acute cystitis Qualified Code(s): N30.00 - Acute cystitis without hematuria Code(s): N39.0 - Urinary tract infection, site not specified Status: Acute Assessment and Plan: 05/19/2023: UA showing 1+ urine protein, 1+ leukocytes, 21-50 urine wbc's, 1+ bacteria urine culture obtained and pending continue Rocephin 05/20/23: Urine culture shown greater than 100,000 g positive organisms, none uropathogenic Patient denies any urinary complaints We will DC Rocephin (2) Closed intertrochanteric fracture of left hip: Qualifiers: Encounter type: initial encounter Fracture alignment: nondisplaced Qualified Code(s): S72.145A - Nondisplaced intertrochanteric fracture of left femur, initial encounter for closed fracture Code(s): S72.142A - Displaced intertrochanteric fracture of left femur, initial encounter for closed fracture Status: Acute Assessment and Plan: 05/18/2023: admit to regular medical floor bed rest ortho consult pain management 05/19/2023: hip and pelvis x-ray showing acute intertrochanteric left femur fracture, nondisplaced SCDs ordered, hold anticoagulation until after ortho consult ortho consulted and plans to take patient to the OR tomorrow 2:00 p.m. for an IM pinning left hip Adjusted his pain medication to 0.5 of Dilaudid every 4 hours as needed for pain, I discontinued the morphine 4 mg q.2 hours, and I increased his Tylenol to 1 g that can be given tonight up until midnight. continue with bed rest orders Case management working on placement at [place] bed program for rehab needs postop 05/20/23: Continue pain control Plan for IM pinning to left hip around 2:00 p.m. today with orthopedic services Case management working on approval 1st on swing bed program for rehab needs postop Will order PT and OT for tomorrow Continue bed rest for now, will increase activity orders tomorrow (3) Accidental fall from bed: Qualifiers: Encounter type: initial encounter Qualified Code(s): W06.XXXA - Fall from bed, initial encounter Code(s): W06.XXXA - Fall from bed, initial encounter Status: Acute Assessment and Plan: 05/18/2023: no loss of consciousness fall precautions 05/19/2023: fall precautions consider PT and OT after ortho evaluation 05/20/23: PT and OT ordered for evaluation and treatment postop (4) Sepsis: Code(s): A41.9 - Sepsis, unspecified organism Status: Acute Assessment and Plan: 05/19/23: Meeting sepsis criteria with increased HR, increased WBC, and known source of infection/UTI. However his increased white blood cell count can be due to inflammatory response and heart rate can be due to elevated pain level. So sepsis is less likely Urine culture obtained and is pending Lactic acid normal VSS, low grade temp, currently on room air Continue with Rocephin Will obtain blood cultures however this is after he received antibiotics. 05/20/23: Urine culture showing greater than 100,000 g positive organisms Patient denies any urinary tract infection and Rocephin was DC Blood cultures are showing no growth to date White blood cell count down to 10.3, likely inflammatory response Vital signs are stable, he is afebrile, he is currently on 2 L nasal cannula Will order an incentive spirometer for postop use Will also get an ApneaLink on room air at some point this admission before he leaves as he was noted to dip down to 84% while sleeping (5) Type 2 diabetes mellitus with chronic kidney disease: Code(s): E11.22 - Type 2 diabetes mellitus with diabetic chronic kidney disease Status: Chronic Assessment and Plan: 05/19/2023: blood sugars ranging 138-147 last hemoglobin A1c on
[2023-05-20 07:32] LABS: Basophils Percent Auto 0.4 % (0.2-1.2); Eosinophils Absolute Auto 0.4 K/mm3 (0-0.3); Eosinophils Percent Auto 3.4 % (0-4.4); Hematocrit 37.5 % (42.0-52.0); Hemoglobin 12.1 g/dL (14.0-18.0); Immature Granulocyte Absolute 0.05 K/mm3 (0.00-0.031); Immature Granulocyte Percent A 0.5 % (0-0.5); Lymphocytes Absolute Auto 1.48 K/mm3 (0.9-3.2); Lymphocytes Percent Auto 14.3 % (18.3-44.2); Mean Corpuscular HGB Conc 32.3 g/dl (32-36); Mean Corpuscular Hemoglobin 30.3 pg (26-34); Mean Corpuscular Volume 93.8 fl (80-100); Monocytes Absolute Auto 0.8 K/mm3 (0.1-0.6); Neutrophils Absolute Auto 7.6 K/mm3 (1.3-6.7); Neutrophils Percent Auto 73.4 % (45.5-73.1); Platelet Count Result 131 k/mm3 (150-375); Red Cell Distribution Width 13.5 % (11.5-14.5); White Blood Count 10.3 K/mm3 (4.5-10.0)
[2023-05-20 07:57] LABS: Alanine Aminotransferase 37 U/L (6-50); Albumin Level 3.9 g/dL (3.5-5.1); Alkaline Phosphatase 61 U/L (38-126); Anion Gap 7 mmol/L (4-12); Aspartate Amino Transferase 67 U/L (17-59); Blood Urea Nitrogen 42 mg/dL (9-20); Calcium 8.6 mg/dL (8.4-10.2); Carbon Dioxide 26 mmol/L (22-30); Chloride 106 mmol/L (98-107); Estimated CRCL calculation 23 ml/min; Estimated Glomerular Filt Rate 23; Glucose 159 mg/dL (65-110); Potassium 4.1 mmol/L (3.4-5.0); Sodium 139 mmol/L (137-145)
[2023-05-20 08:05] LABS: Glucose Point of Care 152 mg/dl (65-105)
[2023-05-20] MEDS: DOCUSATE SODIUM 100 MG CAPSULE PO (08:50)
[2023-05-20] MEDS: ASCORBIC ACID 500 MG TABLET PO (08:50)
[2023-05-20] MEDS: ATORVASTATIN 20 MG TABLET PO (08:50)
[2023-05-20] MEDS: DOXAZOSIN MESYLATE 2 MG TABLET PO (08:50)
[2023-05-20] MEDS: TIMOLOL MALEATE 0.5% OP SOLN 5 ML BOTTLE 1 DROP EACH EYE (08:51)
[2023-05-20] MEDS: CYANOCOBALAMIN 1,000 MCG TABLET 1000 MCG PO (08:51)
[2023-05-20] MEDS: GABAPENTIN 400 MG CAPSULE 1200 MG PO ×2 (08:51→16:29)
[2023-05-20] MEDS: VITAMIN B COMPLEX/VIT C CAPSULE 1 EACH PO (08:51)
[2023-05-20] MEDS: BRIMONIDINE TARTRATE 0.2% OP SOLN 5 ML BTL 1 DROP EACH EYE (08:51)
[2023-05-20 11:39] LABS: Glucose Point of Care 146 mg/dl (65-105)
[2023-05-20 12:03] LABS: Creatine Kinase 1487 U/L (55-170)
--- NOTE | 2023-05-20 12:49 | WPDANESEPPF ---
Anes - Initial Pre Proc Eval Procedure: Operation Date: 05/20/23 14:00 Proposed Procedures p Left Intertrochanteric Nail - Toi Marquez MD Date/Time: 05/20/23 12:49 Surgeon: Hodan Randle MD Pre Op Diagnosis: L intertrochanteric femur fx, Fall from bed, UTI Patient Data Age: 73 Gender: M Height: 1.78 m Weight: 86.3 kg Last Vital Signs Temp 36.8 C 05/20/23 05:02 Pulse 84 05/20/23 05:02 Resp 13 05/20/23 05:02 BP 121/71 05/20/23 05:02 Pulse Ox 98 05/20/23 11:57 O2 Del Method Room Air 05/20/23 11:57 O2 Flow Rate 2 05/20/23 08:00 Allergies Allergy/AdvReac Type Severity Reaction Status Date / Time antihistamines AdvReac Unknown Drowsy Uncoded 04/27/23 10:14 Home Medications Medication Instructions Recorded Confirmed Type brimonidine 0.2 % eye drops 1 drp ophthalmic (eye) DAILY 07/11/19 05/19/23 History tamsulosin 0.4 mg capsule 0.8 mg PO QHS 03/06/21 05/19/23 History B-complex with vitamin C 1 tablet PO DAILY 04/01/21 05/19/23 History ascorbic acid (vitamin C) 500 mg 500 mg PO DAILY 04/01/21 05/19/23 History tablet latanoprost 0.005 % eye drops 1 drp EACH EYE HS 04/01/21 05/19/23 History pseudoephedrine HCl 120 mg 120 mg PO Q12H PRN Congestion 04/01/21 05/19/23 History tablet,extended release (Wal-Phed D) zinc 50 mg tablet 50 mg PO DAILY 04/01/21 05/19/23 History cyanocobalamin (vitamin B-12) 1,000 mcg PO QAM #30 tabs 04/16/21 05/19/23 Rx 1,000 mcg tablet (Vitamin B-12) aspirin 81 mg tablet,delayed 81 mg PO DAILY 05/21/22 05/19/23 History release magnesium 200 mg tablet 200 mg PO DAILY 05/21/22 05/19/23 History furosemide 20 mg tablet 20 mg PO BID #60 tabs 07/11/22 05/19/23 Rx calcitriol 0.25 mcg capsule 0.25 mcg PO 3XW #12 caps 12/11/22 05/19/23 Rx atorvastatin 20 mg tablet 20 mg PO DAILY #90 tabs 03/08/23 05/19/23 Rx doxazosin 2 mg tablet 2 mg PO DAILY #90 tabs 03/10/23 05/19/23 Rx acetaminophen 500 mg capsule 1,000 mg PO Q6H PRN Pain (Scale 04/07/23 05/19/23 History Score 1-3) glimepiride 2 mg tablet 2 mg PO DAILY #90 tabs 04/21/23 05/19/23 Rx gabapentin 600 mg tablet 1,200 mg PO BID #360 tabs 04/27/23 05/19/23 Rx timolol maleate 0.5 % eye drops 1 drp EACH EYE DAILY 05/19/23 05/19/23 History Laboratory Tests 05/19/23 05/19/23 05/19/23 14:39 16:09 19:49 WBC 15.5 H K/mm3 (4.5-10.0) RBC 4.33 L M/mm3 (4.6-6.20) Hgb 12.7 L g/dL (14.0-18.0) Hct 40.6 L % (42.0-52.0) MCV 93.8 fl (80-100) MCH 29.3 pg (26-34) MCHC 31.3 L g/dl (32-36) RDW 13.2 % (11.5-14.5) Plt Count 152 k/mm3 (150-375) MPV 10.9 H fl (7.4-10.4) Immature Gran % (Auto) 0.6 H % (0-0.5) Neut % (Auto) 74.6 H % (45.5-73.1) Lymph % (Auto) 12.2 L % (18.3-44.2) Green % (Auto) 9.9 H % (2.6-8.5) Eos % (Auto) 2.1 % (0-4.4) Baso % (Auto) 0.6 % (0.2-1.2) Lymph # (Auto) 1.89 K/mm3 (0.9-3.2) Green # (Auto) 1.5 H K/mm3 (0.1-0.6) Eos # (Auto) 0.3 K/mm3 (0-0.3) Baso # (Auto) 0.1 K/mm3 (0.0-0.1) Abs Immat Gran (auto) 0.10 H K/mm3 (0.00-0.031) Absolute Neuts (auto) 11.5 H K/mm3 (1.3-6.7) Absolute Nucleated RBC 0.000 K/mm3 (0.0-0.012) Nucleated RBC % 0.0 % (0.0-0.2) Sodium 137 mmol/L (137-145) Potassium 4.5 mmol/L (3.4-5.0) Chloride 103 mmol/L (98-107) Carbon Dioxide 26 mmol/L (22-30) Anion Gap 8 mmol/L (4-12) BUN 36 H mg/dL (9-20) Creatinine 2.40 H mg/dL (0.7-1.3) Estim Creat Clear Calc 26 ml/min Estimated GFR 27 L (59 - ) Glucose 173 H mg/dL (65-110) POC Capillary Glucose 166 H mg/dl 154 H mg/dl (65-105) (65-105) Hemoglobin A1c 6.5 H % (<5.7) Calcium 9.0 mg/dL (8.4-10.2)
[2023-05-20] MEDS: TRANEXAMIC ACID 1,000MG/ISO100 1,000 MG/100 ML BAG 200 MG IVPB (12:51)
[2023-05-20] MEDS: LACTATED RINGERS 1,000 ML 30 ML IV CONT (12:52)
[2023-05-20 13:06] LABS: Glucose Point of Care 147 mg/dl (65-105)
[2023-05-20] MEDS: ceFAZolin 2 GM/D5W 50 ML 2 GM/50 ML BAG IVPB ×2 (13:14→20:50)
[2023-05-20] MEDS: TRANEXAMIC ACID 1,000 MG/10 ML AMPUL 1000 MG IV PUSH (14:19)
--- NOTE | 2023-05-20 14:25 | W.PM.PROC2 ---
Procedure Note - Detailed Date of Procedure 05/20/23 Pre-op Diagnosis L intertrochanteric femur fx, Fall from bed, UTI Post-op Diagnosis Same Procedure Performed INSERTION FEMORAL CASS LEFT HIP Surgeon Toi Marquez MD Anesthesia General Description of Procedure THE PATIENT WAS TAKEN TO THE OPERATING ROOM AND PLACED ON A FRACTURE TABLE AFTER GIVEN GENERAL ANESTHESIA. THE LEFT LOWER EXTREMITY WAS PLACED IN A TRACTION BOOT AND USING SOME TRACTION AND INTERNAL ROTATION THE INNER TROCHANTERIC FRACTURE WAS REDUCED TO ANATOMIC POSITION. NEXT THE LEFT LOWER EXTREMITY WAS PREPPED AND DRAPED IN THE STERILE FASHION. AN INCISION WAS MADE PROXIMAL TO THE TIP OF THE GREATER TROCHANTER AND DISSECTION CONTINUED TILL THE TIP OF THE GREATER TROCHANTER WAS PALPATED. A GUIDE PIN WAS PLACED DOWN THE FEMORAL CANAL AND PAST THE FRACTURE SITE. THIS WAS CHECKED ON FLUOROSCOPY AND FOUND TO BE IN GOOD POSITION. AN INITIAL REAMER WAS USED TO REAM THE FEMORAL CANAL. A 11 BY 200 MM GAMMA CASS WAS INSERTED TILL THE CORRECT POSITION WAS IDENTIFIED ON XRAY. A GUIDE PIN WAS INSERTED THROUGH THE FEMORAL NECK AT [address] TILL IT REACHED THE TIP OF THE SUB CHONDRAL BONE SEEN ON XRAY. AFTER REAMING, LAG SCREW WAS INSERTED MEASURING 105 MM. XRAYS SHOWED IT TO BE IN GOOD POSITION. THE LAG SCREW WAS LOCKED PROXIMALLY WITH A LOCKING SCREW. NEXT A DISTAL LOCKING SCREW WAS PLACED ACROSS THE CASS AND WAS IN GOOD POSITION ON XRAY. THE TRACTION WAS RELEASED. THE WOUNDS WERE WASHED. THE DEEP FASCIA WAS REPAIRED WITH 0 VICRYL SUTURE, THE SUB CUTANEOUS LAYER WITH 2-0 VICRYL, AND THE SKIN WITH MARY. THE WOUNDS WERE WASHED AND THEN STERILE DRESSING WAS APPLIED. PATIENT WAS EXTUBATED AND SENT TO RECOVERY ROOM. Estimated Blood Loss 100 Urine Output 300 Complications No immediate complications Condition Stable Disposition PACU
[2023-05-20] MEDS: fentaNYL CITRATE INJ (*CRX) 100 MCG/2 ML VIAL 25 MCG IV PUSH (15:00)
[2023-05-20 15:01] LABS: Glucose Point of Care 154 mg/dl (65-105)
--- NOTE | 2023-05-20 16:07 | PC.NURSE ---
1520 patient arrived at 1535 from pacu. stable. 3 LNC, post op vitals started.
[2023-05-20] MEDS: SODIUM CHLORIDE 0.9% IV 1,000 ML 125 ML IV CONT (16:29)
[2023-05-20] MEDS: SENNA/DOCUSATE SODIUM TABLET 2 TAB PO (16:30)
[2023-05-20] MEDS: FUROSEMIDE 20 MG TABLET PO (16:30)
[2023-05-20 16:52] LABS: Glucose Point of Care 187 mg/dl (65-105)
--- NOTE | 2023-05-20 17:37 | PC.NURSE ---
called to update son Avery (POAlicia)that patient is stable, in the room. bed alarm on. call light in reach.
[2023-05-20] MEDS: HYDROcodone/acetaminophen (*CRX) 7.5-325 MG TABLET 1 TAB PO (18:16)
[2023-05-20 20:15] LABS: Glucose Point of Care 207 mg/dl (65-105)
[2023-05-20] MEDS: TAMSULOSIN HCL 0.4 MG CAPSULE 0.8 MG PO (20:49)
[2023-05-20] MEDS: ASPIRIN 325 MG ENTERIC TABLET PO (20:50)
[2023-05-20] MEDS: FAMOTIDINE 20 MG TABLET PO (20:50)
[2023-05-21] VITALS (8 sets, daily range): BP systolic 132–200; BP diastolic 73–110; PULSE 71–87; RESP 16–20; TEMP 35.9–36.6; O2SAT 92–95
[2023-05-21] MEDS: SODIUM CHLORIDE 0.9% IV 1,000 ML 125 ML IV CONT (01:13)
[2023-05-21] MEDS: HYDROcodone/acetaminophen (*CRX) 7.5-325 MG TABLET 1 TAB PO ×3 (02:09→20:43)
[2023-05-21] MEDS: ceFAZolin 2 GM/D5W 50 ML 2 GM/50 ML BAG IVPB ×2 (05:49→12:45)
[2023-05-21 07:17] LABS: Basophils Percent Auto 0.2 % (0.2-1.2); Eosinophils Percent Auto 0.2 % (0-4.4); Hematocrit 33.4 % (42.0-52.0); Hemoglobin 10.7 g/dL (14.0-18.0); Immature Granulocyte Absolute 0.08 K/mm3 (0.00-0.031); Immature Granulocyte Percent A 0.9 % (0-0.5); Lymphocytes Absolute Auto 0.78 K/mm3 (0.9-3.2); Lymphocytes Percent Auto 9.1 % (18.3-44.2); Mean Corpuscular Hemoglobin 29.5 pg (26-34); Mean Platelet Volume 10.6 fl (7.4-10.4); Monocytes Absolute Auto 0.8 K/mm3 (0.1-0.6); Monocytes Percent Auto 9.7 % (2.6-8.5); Neutrophils Absolute Auto 6.9 K/mm3 (1.3-6.7); Neutrophils Percent Auto 79.9 % (45.5-73.1); Platelet Count Result 128 k/mm3 (150-375); Red Blood Count 3.63 M/mm3 (4.6-6.20); Red Cell Distribution Width 13.2 % (11.5-14.5); White Blood Count 8.6 K/mm3 (4.5-10.0)
[2023-05-21 07:34] LABS: Alanine Aminotransferase 32 U/L (6-50); Albumin Level 3.6 g/dL (3.5-5.1); Alkaline Phosphatase 57 U/L (38-126); Anion Gap 8 mmol/L (4-12); Aspartate Amino Transferase 72 U/L (17-59); Bilirubin,Total 0.7 mg/dL (0.2-1.3); Blood Urea Nitrogen 36 mg/dL (9-20); Calcium 8.2 mg/dL (8.4-10.2); Carbon Dioxide 21 mmol/L (22-30); Chloride 109 mmol/L (98-107); Estimated CRCL calculation 32 ml/min; Estimated Glomerular Filt Rate 35; Glucose 174 mg/dL (65-110); Sodium 138 mmol/L (137-145)
--- NOTE | 2023-05-21 07:44 | WPDANESPN ---
Anes - Prog Note Post-Op Date/Time: 05/21/23 07:44 Cardiovascular status: normal Respiratory status: normal Airway patency: baseline Mental status: baseline Post-Op hydration status: normal Vital Signs: Last Vital Signs Temp 36.4 C 05/21/23 05:08 Pulse 85 05/21/23 05:08 Resp 16 05/21/23 05:08 BP 184/98 H 05/21/23 05:08 Pulse Ox 94 05/21/23 05:08 O2 Del Method Nasal Cannula 05/20/23 20:11 O2 Flow Rate 4 05/20/23 20:11 Pain Score (VAS): Patient asleep. No nonverbal signs of pain present at this time. I/O: Intake & Output 05/20/23 05/20/23 05/21/23 15:59 23:59 07:59 Intake Total 52 50 1850 Output Total 138 283 3793 Balance -683 -150 650 Laboratory Tests 05/21/23 07:03 05/21/23 07:03 05/20/23 05/20/23 05/20/23 06:52 07:50 11:25 WBC 10.3 H RBC 4.00 L Hgb 12.1 L Hct 37.5 L MCV 93.8 MCH 30.3 MCHC 32.3 RDW 13.5 Plt Count 131 L MPV 11.0 H Immature Gran % (Auto) 0.5 Neut % (Auto) 73.4 H Lymph % (Auto) 14.3 L [place] % (Auto) 8.0 Eos % (Auto) 3.4 Baso % (Auto) 0.4 Lymph # (Auto) 1.48 [place] # (Auto) 0.8 H Eos # (Auto) 0.4 H Baso # (Auto) 0.0 Abs Immat Gran (auto) 0.05 H Absolute Neuts (auto) 7.6 H Absolute Nucleated RBC 0.000 Nucleated RBC % 0.0 Sodium 139 Potassium 4.1 Chloride 106 Carbon Dioxide 26 Anion Gap 7 L BUN 42 H Creatinine 2.70 H Estim Creat Clear Calc 23 Estimated GFR 23 L Glucose 159 H POC Capillary Glucose 152 H 146 H Calcium 8.6 Total Bilirubin 1.0 AST 67 H ALT 37 Alkaline Phosphatase 61 Total Creatine Kinase 1487 H Total Protein 7.0 Albumin 3.9 05/20/23 05/20/23 05/20/23 13:03 14:54 16:46 WBC RBC Hgb Hct MCV MCH MCHC RDW Plt Count MPV Immature Gran % (Auto) Neut % (Auto) Lymph % (Auto) [place] % (Auto) Eos % (Auto) Baso % (Auto) Lymph # (Auto) [place] # (Auto) Eos # (Auto) Baso # (Auto) Abs Immat Gran (auto) Absolute Neuts (auto) Absolute Nucleated RBC Nucleated RBC % Sodium Potassium Chloride Carbon Dioxide Anion Gap BUN Creatinine Estim Creat Clear Calc Estimated GFR Glucose POC Capillary Glucose 147 H 154 H 187 H Calcium Total Bilirubin AST ALT Alkaline Phosphatase Total Creatine Kinase Total Protein Albumin 05/20/23 05/21/23 20:02 07:03 WBC 8.6 RBC 3.63 L Hgb 10.7 L Hct 33.4 L MCV 92.0 MCH 29.5 MCHC 32.0 RDW 13.2 Plt Count 128 L MPV 10.6 H Immature Gran % (Auto) 0.9 H Neut % (Auto) 79.9 H Lymph % (Auto) 9.1 L [place] % (Auto) 9.7 H Eos % (Auto) 0.2 Baso % (Auto) 0.2 Lymph # (Auto) 0.78 L [place] # (Auto) 0.8 H Eos # (Auto) 0.0 Baso # (Auto) 0.0 Abs Immat Gran (auto) 0.08 H Absolute Neuts (auto) 6.9 H Absolute Nucleated RBC 0.000 Nucleated RBC % 0.0 Sodium 138 Potassium 4.0 Chloride 109 H Carbon Dioxide 21 L Anion Gap 8 BUN 36 H Creatinine 1.90 H Estim Creat Clear Calc 32 Estimated GFR 35 L Glucose 174 H POC Capillary Glucose 207 H Calcium 8.2 L Total Bilirubin 0.7 AST 72 H ALT 32 Alkaline Phosphatase 57 Total Creatine Kinase Total Protein 6.0 L Albumin 3.6 Microbiology 05/19/23 17:48 Blood Blood Culture - Preliminary 05/19/23 17:49 Blood Blood Culture - Preliminary Post-procedural complaints: none Patient Feedback: Patient satisfied with anesthetic care.
--- NOTE | 2023-05-21 07:48 | WPDANESPN ---
Anes - Prog Note Post-Op Date/Time: 05/21/23 07:48 Cardiovascular status: normal Respiratory status: normal Airway patency: baseline Mental status: baseline (patient is confused but is oriented to self and situation) Post-Op hydration status: normal Vital Signs: Last Vital Signs Temp 36.4 C 05/21/23 05:08 Pulse 85 05/21/23 05:08 Resp 16 05/21/23 05:08 BP 184/98 H 05/21/23 05:08 Pulse Ox 94 05/21/23 05:08 O2 Del Method Nasal Cannula 05/20/23 20:11 O2 Flow Rate 4 05/20/23 20:11 Pain Score (VAS): 04/04 I/O: Intake & Output 05/20/23 05/20/23 05/21/23 15:59 23:59 07:59 Intake Total 52 50 1850 Output Total 746 581 5739 Balance -683 -150 650 Laboratory Tests 05/21/23 07:03 05/21/23 07:03 05/20/23 05/20/23 05/20/23 06:52 07:50 11:25 WBC 10.3 H RBC 4.00 L Hgb 12.1 L Hct 37.5 L MCV 93.8 MCH 30.3 MCHC 32.3 RDW 13.5 Plt Count 131 L MPV 11.0 H Immature Gran % (Auto) 0.5 Neut % (Auto) 73.4 H Lymph % (Auto) 14.3 L [place] % (Auto) 8.0 Eos % (Auto) 3.4 Baso % (Auto) 0.4 Lymph # (Auto) 1.48 [place] # (Auto) 0.8 H Eos # (Auto) 0.4 H Baso # (Auto) 0.0 Abs Immat Gran (auto) 0.05 H Absolute Neuts (auto) 7.6 H Absolute Nucleated RBC 0.000 Nucleated RBC % 0.0 Sodium 139 Potassium 4.1 Chloride 106 Carbon Dioxide 26 Anion Gap 7 L BUN 42 H Creatinine 2.70 H Estim Creat Clear Calc 23 Estimated GFR 23 L Glucose 159 H POC Capillary Glucose 152 H 146 H Calcium 8.6 Total Bilirubin 1.0 AST 67 H ALT 37 Alkaline Phosphatase 61 Total Creatine Kinase 1487 H Total Protein 7.0 Albumin 3.9 05/20/23 05/20/23 05/20/23 13:03 14:54 16:46 WBC RBC Hgb Hct MCV MCH MCHC RDW Plt Count MPV Immature Gran % (Auto) Neut % (Auto) Lymph % (Auto) [place] % (Auto) Eos % (Auto) Baso % (Auto) Lymph # (Auto) [place] # (Auto) Eos # (Auto) Baso # (Auto) Abs Immat Gran (auto) Absolute Neuts (auto) Absolute Nucleated RBC Nucleated RBC % Sodium Potassium Chloride Carbon Dioxide Anion Gap BUN Creatinine Estim Creat Clear Calc Estimated GFR Glucose POC Capillary Glucose 147 H 154 H 187 H Calcium Total Bilirubin AST ALT Alkaline Phosphatase Total Creatine Kinase Total Protein Albumin 05/20/23 05/21/23 20:02 07:03 WBC 8.6 RBC 3.63 L Hgb 10.7 L Hct 33.4 L MCV 92.0 MCH 29.5 MCHC 32.0 RDW 13.2 Plt Count 128 L MPV 10.6 H Immature Gran % (Auto) 0.9 H Neut % (Auto) 79.9 H Lymph % (Auto) 9.1 L [place] % (Auto) 9.7 H Eos % (Auto) 0.2 Baso % (Auto) 0.2 Lymph # (Auto) 0.78 L [place] # (Auto) 0.8 H Eos # (Auto) 0.0 Baso # (Auto) 0.0 Abs Immat Gran (auto) 0.08 H Absolute Neuts (auto) 6.9 H Absolute Nucleated RBC 0.000 Nucleated RBC % 0.0 Sodium 138 Potassium 4.0 Chloride 109 H Carbon Dioxide 21 L Anion Gap 8 BUN 36 H Creatinine 1.90 H Estim Creat Clear Calc 32 Estimated GFR 35 L Glucose 174 H POC Capillary Glucose 207 H Calcium 8.2 L Total Bilirubin 0.7 AST 72 H ALT 32 Alkaline Phosphatase 57 Total Creatine Kinase Total Protein 6.0 L Albumin 3.6 Microbiology 05/19/23 17:48 Blood Blood Culture - Preliminary 05/19/23 17:49 Blood Blood Culture - Preliminary Post-procedural complaints: none Patient Feedback: Patient satisfied with anesthetic care.
[2023-05-21 08:35] LABS: Glucose Point of Care 165 mg/dl (65-105)
--- NOTE | 2023-05-21 09:17 | PM.IMPN ---
Progress Note: A&P Assessment and Plan (1) Sepsis: Code(s): A41.9 - Sepsis, unspecified organism Status: Acute (2) Closed intertrochanteric fracture of left hip: Qualifiers: Encounter type: initial encounter Fracture alignment: nondisplaced Qualified Code(s): S72.145A - Nondisplaced intertrochanteric fracture of left femur, initial encounter for closed fracture Code(s): S72.142A - Displaced intertrochanteric fracture of left femur, initial encounter for closed fracture Status: Acute (3) Accidental fall from bed: Qualifiers: Encounter type: initial encounter Qualified Code(s): W06.XXXA - Fall from bed, initial encounter Code(s): W06.XXXA - Fall from bed, initial encounter Status: Acute (4) UTI (urinary tract infection): Qualifiers: Hematuria presence: without hematuria Urinary tract infection type: acute cystitis Qualified Code(s): N30.00 - Acute cystitis without hematuria Code(s): N39.0 - Urinary tract infection, site not specified Status: Acute Plan (1) UTI (urinary tract infection): ?Qualifiers: ?Hematuria presence:?without hematuria??Urinary tract infection type:?acute cystitis? Qualified Code(s):?N30.00 - Acute cystitis without hematuria ?Code(s): N39.0 - Urinary tract infection, site not specified ?Status:?Acute ?Assessment and Plan: ?05/19/2023: ?UA showing 1+ urine protein, 1+ leukocytes, 21-50 urine wbc's, 1+ bacteria ?urine culture obtained and pending ?continue Rocephin 05/20/23: Urine culture shown greater than 100,000 g positive organisms, none uropathogenic DC Rocephin now Patient is on Ancef IV Urinary retention Patient has history of penile implant Patient has urinary retention, Toure catheter was removed yesterday. Bladder scan today suggests urine retention Place the patient back on Toure catheter Consult urologist (2) Closed intertrochanteric fracture of left hip: ?Qualifiers: ?Encounter type:?initial encounter??Fracture alignment:?nondisplaced? Qualified Code(s):?S72.145A - Nondisplaced intertrochanteric fracture of left femur, initial encounter for closed fracture ?Code(s): S72.142A - Displaced intertrochanteric fracture of left femur, initial encounter for closed fracture ?Status:?Acute ?Assessment and Plan: ?05/18/2023: ?admit to regular medical floor ?bed rest ?ortho consult ?pain management ??05/19/2023: ? hip and pelvis? x-ray showing acute intertrochanteric left femur fracture, nondisplaced ?SCDs ordered, hold anticoagulation until after ortho consult ?ortho consulted and plans to take patient to the OR tomorrow 2:00 p.m. for an IM pinning left hip Adjusted his pain medication to 0.5 of Dilaudid every 4 hours as needed for pain, I discontinued the morphine 4 mg q.2 hours, and I increased his Tylenol to 1 g that can be given tonight up until midnight. ?continue with bed rest orders Case management working on placement at [place] swing bed program for rehab needs postop 05/20/23: Continue pain control Plan for IM pinning to left hip around 2:00 p.m. today with orthopedic services Case management working on approval [facility] bed program for rehab needs postop Will order PT and OT for tomorrow Continue bed rest for now, will increase activity orders tomorrow(3) Accidental fall from bed: ?Qualifiers: ?Encounter type:?initial encounter? Qualified Code(s):?W06.XXXA - Fall from bed, initial encounter ?Code(s): W06.XXXA - Fall from bed, initial encounter ?Status:?Acute ?Assessment and Plan: ? 05/18/2023: no loss of? consciousness ?fall precautions ?05/19/2023: ?fall precautions ? consider PT and OT? after ortho evaluation 05/20/23: PT and OT ordered for evaluation and treatment postop Chronic patient still has left hip pain, patient is unable to ambulate (4) Sepsis: ?Code(s): A41.9 - Sepsis, uns
[2023-05-21] MEDS: SENNA/DOCUSATE SODIUM TABLET 2 TAB PO ×2 (09:53→17:36)
[2023-05-21] MEDS: ASCORBIC ACID 500 MG TABLET PO (09:54)
[2023-05-21] MEDS: FAMOTIDINE 20 MG TABLET PO ×2 (09:54→20:43)
[2023-05-21] MEDS: VITAMIN B COMPLEX/VIT C CAPSULE 1 EACH PO (09:54)
[2023-05-21] MEDS: GLIMEPIRIDE 2 MG TABLET PO (09:54)
[2023-05-21] MEDS: GABAPENTIN 400 MG CAPSULE 1200 MG PO ×2 (09:56→17:36)
[2023-05-21] MEDS: DOXAZOSIN MESYLATE 2 MG TABLET PO (09:57)
[2023-05-21] MEDS: LORATADINE/PSEUDOEPHEDRINE (*CRX) 10/240 MG TABLET ER 24 HR 1 TAB PO (09:57)
[2023-05-21] MEDS: ASPIRIN 325 MG ENTERIC TABLET PO ×2 (09:57→20:43)
[2023-05-21] MEDS: CYANOCOBALAMIN 1,000 MCG TABLET 1000 MCG PO (09:57)
[2023-05-21] MEDS: ATORVASTATIN 20 MG TABLET PO (09:57)
[2023-05-21] MEDS: polyethylene glycoL 3350 17 GM POWD.PACK PO (09:57)
[2023-05-21] MEDS: BRIMONIDINE TARTRATE 0.2% OP SOLN 5 ML BTL 1 DROP EACH EYE (09:58)
[2023-05-21] MEDS: TIMOLOL MALEATE 0.5% OP SOLN 5 ML BOTTLE 1 DROP EACH EYE (09:58)
[2023-05-21] MEDS: amLODIPine BESYLATE 5 MG TABLET 10 MG PO (10:02)
[2023-05-21 11:44] LABS: Glucose Point of Care 149 mg/dl (65-105)
[2023-05-21] MEDS: MAGNESIUM OXIDE 200 MG TABLET PO (12:47)
[2023-05-21] MEDS: SODIUM CHLORIDE 0.9% IV 1,000 ML 75 ML IV CONT ×2 (13:00→20:42)
[2023-05-21] MEDS: ZINC SULFATE 220 MG CAPSULE PO (13:29)
[2023-05-21 16:42] LABS: Glucose Point of Care 192 mg/dl (65-105)
--- NOTE | 2023-05-21 16:57 | PM.PNORT ---
Progress Note: A&P Assessment and Plan (1) Closed intertrochanteric fracture of left hip: Qualifiers: Encounter type: initial encounter Fracture alignment: nondisplaced Qualified Code(s): S72.145A - Nondisplaced intertrochanteric fracture of left femur, initial encounter for closed fracture Code(s): S72.142A - Displaced intertrochanteric fracture of left femur, initial encounter for closed fracture Status: Acute Assessment and Plan: POD 1 DOING WELL. ADVANCE DIET TOLERATED. HE CAN BE WBAT. HE WILL NEED 4 WEEKS OF DVT PROPHYLAXIS. HE WILL F/U IN MY OFFICE IN 6 WEEKS. Subjective Subjective Date/Time Seen: 05/21/23 16:57 Interval history: POD 1 DOING WELL. 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 HOMANS SIGN CALF SOFT NON TENDER Objective Data Vital Signs Vital Signs: Vital Signs - 24 hr 05/20/23 17:08 05/20/23 20:50 05/20/23 20:10 Temperature 37.0 C 36.8 C Pulse Rate 88 100 Respiratory Rate 20 20 Blood Pressure 156/82 H 132/88 Pulse Oximetry 93 91 81 L Oxygen Delivery Room Air Oxygen Flow Rate 05/20/23 20:11 05/21/23 01:53 05/21/23 02:54 Temperature Pulse Rate Respiratory Rate Blood Pressure 200/110 H 173/83 H Pulse Oximetry 92 Oxygen Delivery Nasal Cannula Oxygen Flow Rate 4 05/21/23 05:08 05/21/23 08:42 05/21/23 08:00 Temperature 36.4 C 36.5 C Pulse Rate 85 81 Respiratory Rate 16 20 Blood Pressure 184/98 H 132/75 Pulse Oximetry 94 92 Oxygen Delivery Room Air Oxygen Flow Rate 05/21/23 10:50 05/21/23 13:08 Temperature 36.6 C Pulse Rate 76 Respiratory Rate 18 Blood Pressure 132/75 Pulse Oximetry 94 Oxygen Delivery Room Air Oxygen Flow Rate Intake/Output Intake/Output: Intake & Output 05/18/23 05/19/23 05/20/23 05/21/23 23:59 23:59 23:59 23:59 Intake Total 150 1652 3330 Output Total 100 1185 1200 Balance 50 467 2130 Meds/Results Medications: Active Medications Generic Name Dose Route Start Last Admin Trade Name Freq PRN Reason Stop Dose Admin Acetaminophen 1,000 mg 05/20/23 15:23 Acetaminophen 500 Mg Tablet PO Q6H PRN Pain (Scale Score 1-3) Hydrocodone Bitart/Acetaminophen 1 tab 05/20/23 15:23 05/21/23 06:57 Hydrocodone/Acetaminophen (*Crx) 7.5-325 Mg Tablet PO 1 tab Q3H PRN Administration Pain Rated 4-6 Hydrocodone Bitart/Acetaminophen 2 tab 05/20/23 15:23 Hydrocodone/Acetaminophen (*Crx) 7.5-325 Mg Tablet PO Q6H PRN Pain Rated 7-10 Al Hydrox/Mg Hydrox/Simethicone 30 ml 05/19/23 02:25 Mag Hydrox/Al Hydrox/Simeth 30 Ml Udc PO Q6H PRN Indigestion Amlodipine Besylate 10 mg 05/21/23 09:40 05/21/23 10:02 Amlodipine Besylate 5 Mg Tablet PO 10 mg QAM ROCIO Administration Ascorbic Acid 500 mg 05/19/23 13:55 05/21/23 09:54 Ascorbic Acid 500 Mg Tablet PO 500 mg DAILY ROCIO Administration Aspirin 325 mg 05/20/23 21:00 05/21/23 09:57 Aspirin 325 Mg Enteric Tablet PO 325 mg Q12HR ROCIO Administration Atorvastatin Calcium 20 mg 05/19/23 13:55 05/21/23 09:57 Atorvastatin 20 Mg Tablet PO 20 mg DAILY ROCIO Administration Bisacodyl 5 mg 05/19/23 13:34 Bisacodyl 5 Mg Tablet Ec PO DAILY PRN Constipation Brimonidine Tartrate 1 drop 05/19/23 13:55 05/21/23 09:58 Brimonidine Tartrate 0.2% Op Soln 5 Ml Btl EACH EYE 1 drop DAILY ROCIO Administration Calcitriol 0.25 mcg 05/22/23 09:00 Calcitriol 0.25 Mcg Capsule PO MoWeFr@0900 ROCIO Cyanocobalamin 1,000 mcg 05/19/23 13:55 05/21/23 09:57 Cyanocobalamin 1,000 Mcg Tablet PO 1,000 mcg QAM ROCIO Administration Dextrose 12.5 gm 05/19/23 14:00 Dextrose 50% 25 Gm/50 Ml Syringe IV PUSH PRN PRN Hypoglycemia Protocol Diazepam 5 mg 05/20/23 15:23 Diazepam (*Crx) 5 Mg Tablet PO Q8H PRN Muscle Spasm Doxazosin Mesylate 2
--- NOTE | 2023-05-21 18:28 | PC.NURSE ---
On 05/21/23, the STATE ARCHIVIST, Brittany Allen, provided care and completed [employer] documentation on this patient. I have reviewed the STATE ARCHIVIST's documentation and agree with the findings.
[2023-05-21] MEDS: TAMSULOSIN HCL 0.4 MG CAPSULE 0.8 MG PO (20:43)
[2023-05-21 21:08] LABS: Glucose Point of Care 167 mg/dl (65-105)
[2023-05-22 00:56] VITALS: BP 164/105; PULSE 88; RESP 20; TEMP 37.1; O2SAT 95
[2023-05-22 06:30] VITALS: BP 172/89; PULSE 75; RESP 18; TEMP 36.5; O2SAT 98
[2023-05-22] MEDS: hydrALAZINE HCL 20 MG/ML VIAL 10 MG IV PUSH (06:42)
[2023-05-22 07:05] LABS: Basophils Percent Auto 0.5 % (0.2-1.2); Eosinophils Absolute Auto 0.6 K/mm3 (0-0.3); Eosinophils Percent Auto 7.9 % (0-4.4); Hematocrit 32.1 % (42.0-52.0); Hemoglobin 10.4 g/dL (14.0-18.0); Immature Granulocyte Absolute 0.05 K/mm3 (0.00-0.031); Immature Granulocyte Percent A 0.7 % (0-0.5); Lymphocytes Absolute Auto 1.31 K/mm3 (0.9-3.2); Lymphocytes Percent Auto 17.3 % (18.3-44.2); Mean Corpuscular HGB Conc 32.4 g/dl (32-36); Mean Corpuscular Volume 92.5 fl (80-100); Mean Platelet Volume 10.6 fl (7.4-10.4); Monocytes Absolute Auto 0.7 K/mm3 (0.1-0.6); Monocytes Percent Auto 9.6 % (2.6-8.5); Neutrophils Absolute Auto 4.9 K/mm3 (1.3-6.7); Platelet Count Result 134 k/mm3 (150-375); Red Blood Count 3.47 M/mm3 (4.6-6.20); Red Cell Distribution Width 13.2 % (11.5-14.5); White Blood Count 7.6 K/mm3 (4.5-10.0)
[2023-05-22 07:08] LABS: Alanine Aminotransferase 17 U/L (6-50); Albumin Level 3.5 g/dL (3.5-5.1); Alkaline Phosphatase 54 U/L (38-126); Anion Gap 7 mmol/L (4-12); Aspartate Amino Transferase 55 U/L (17-59); Bilirubin,Total 0.8 mg/dL (0.2-1.3); Blood Urea Nitrogen 27 mg/dL (9-20); Calcium 8.4 mg/dL (8.4-10.2); Carbon Dioxide 22 mmol/L (22-30); Chloride 111 mmol/L (98-107); Estimated CRCL calculation 38 ml/min; Estimated Glomerular Filt Rate 42; Glucose 106 mg/dL (65-110); Potassium 3.7 mmol/L (3.4-5.0); Sodium 140 mmol/L (137-145)
[2023-05-22 08:00] VITALS: PULSE 80; RESP 18; O2SAT 99
[2023-05-22 08:46] LABS: Glucose Point of Care 116 mg/dl (65-105)
[2023-05-22] MEDS: ASCORBIC ACID 500 MG TABLET PO (09:46)
[2023-05-22] MEDS: GABAPENTIN 400 MG CAPSULE 1200 MG PO (09:46)
[2023-05-22] MEDS: LORATADINE/PSEUDOEPHEDRINE (*CRX) 10/240 MG TABLET ER 24 HR 1 TAB PO (09:46)
[2023-05-22] MEDS: DOXAZOSIN MESYLATE 2 MG TABLET PO (09:46)
[2023-05-22] MEDS: CYANOCOBALAMIN 1,000 MCG TABLET 1000 MCG PO (09:46)
[2023-05-22] MEDS: GLIMEPIRIDE 2 MG TABLET PO (09:47)
[2023-05-22] MEDS: ASPIRIN 325 MG ENTERIC TABLET PO (09:47)
[2023-05-22] MEDS: polyethylene glycoL 3350 17 GM POWD.PACK PO (09:47)
[2023-05-22] MEDS: FAMOTIDINE 20 MG TABLET PO (09:47)
[2023-05-22] MEDS: amLODIPine BESYLATE 5 MG TABLET 10 MG PO (09:47)
[2023-05-22] MEDS: TIMOLOL MALEATE 0.5% OP SOLN 5 ML BOTTLE 1 DROP EACH EYE (09:47)
[2023-05-22] MEDS: ATORVASTATIN 20 MG TABLET PO (09:47)
[2023-05-22] MEDS: BRIMONIDINE TARTRATE 0.2% OP SOLN 5 ML BTL 1 DROP EACH EYE (09:47)
[2023-05-22] MEDS: SENNA/DOCUSATE SODIUM TABLET 2 TAB PO (09:47)
[2023-05-22] MEDS: VITAMIN B COMPLEX/VIT C CAPSULE 1 EACH PO (09:47)
[2023-05-22] MEDS: calcitrioL 0.25 MCG CAPSULE PO (09:50)
--- NOTE | 2023-05-22 10:21 | PM.IMPN ---
Progress Note: A&P Assessment and Plan (1) Sepsis: Code(s): A41.9 - Sepsis, unspecified organism Status: Acute (2) Closed intertrochanteric fracture of left hip: Qualifiers: Encounter type: initial encounter Fracture alignment: nondisplaced Qualified Code(s): S72.145A - Nondisplaced intertrochanteric fracture of left femur, initial encounter for closed fracture Code(s): S72.142A - Displaced intertrochanteric fracture of left femur, initial encounter for closed fracture Status: Acute (3) Accidental fall from bed: Qualifiers: Encounter type: initial encounter Qualified Code(s): W06.XXXA - Fall from bed, initial encounter Code(s): W06.XXXA - Fall from bed, initial encounter Status: Acute (4) UTI (urinary tract infection): Qualifiers: Hematuria presence: without hematuria Urinary tract infection type: acute cystitis Qualified Code(s): N30.00 - Acute cystitis without hematuria Code(s): N39.0 - Urinary tract infection, site not specified Status: Acute Plan (1) UTI (urinary tract infection): ?Qualifiers: ?Hematuria presence:?without hematuria??Urinary tract infection type:?acute cystitis? Qualified Code(s):?N30.00 - Acute cystitis without hematuria ?Code(s): N39.0 - Urinary tract infection, site not specified ?Status:?Acute ?Assessment and Plan: ?05/19/2023: ?UA showing 1+ urine protein, 1+ leukocytes, 21-50 urine wbc's, 1+ bacteria ?urine culture obtained and pending ?continue Rocephin 05/20/23: Urine culture shown greater than 100,000 g positive organisms, none uropathogenic DC Rocephin Patient on Ancef IV 05/20 Urinary retention Patient has history of penile implant Patient has urinary retention, Toure catheter was removed yesterday. Bladder scan today suggests urine retention Place the patient back on Toure catheter Consulted urologist Will discharge patient with Toure catheter, patient needs to see urologist at scheduled appointment (2) Closed intertrochanteric fracture of left hip: ?Qualifiers: ?Encounter type:?initial encounter??Fracture alignment:?nondisplaced? Qualified Code(s):?S72.145A - Nondisplaced intertrochanteric fracture of left femur, initial encounter for closed fracture ?Code(s): S72.142A - Displaced intertrochanteric fracture of left femur, initial encounter for closed fracture ?Status:?Acute ?Assessment and Plan: ?05/18/2023: ?admit to regular medical floor ?bed rest ?ortho consult ?pain management ??05/19/2023: ? hip and pelvis? x-ray showing acute intertrochanteric left femur fracture, nondisplaced ?SCDs ordered, hold anticoagulation until after ortho consult ?ortho consulted and plans to take patient to the OR tomorrow 2:00 p.m. for an IM pinning left hip Adjusted his pain medication to 0.5 of Dilaudid every 4 hours as needed for pain, I discontinued the morphine 4 mg q.2 hours, and I increased his Tylenol to 1 g that can be given tonight up until midnight. ?continue with bed rest orders Case management working on placement at [place] swing bed program for rehab needs postop 05/20/23: Continue pain control Plan for IM pinning to left hip around 2:00 p.m. today with orthopedic services Case management working on approval [facility] swing bed program for rehab needs postop Will order PT and OT for tomorrow Continue bed rest for now, will increase activity orders tomorrow(3) Accidental fall from bed: ?Qualifiers: ?Encounter type:?initial encounter? Qualified Code(s):?W06.XXXA - Fall from bed, initial encounter ?Code(s): W06.XXXA - Fall from bed, initial encounter ?Status:?Acute ?Assessment and Plan: ? 05/18/2023: no loss of? consciousness ?fall precautions ?05/19/2023: ?fall precautions ? consider PT and OT? after ortho evaluation 05/20/23: PT and OT ordered for evaluation and treatment postop Chronic patient still
--- NOTE | 2023-05-22 10:35 | PM.PNORT ---
Progress Note: A&P Assessment and Plan (1) Closed intertrochanteric fracture of left hip: Qualifiers: Encounter type: initial encounter Fracture alignment: nondisplaced Qualified Code(s): S72.145A - Nondisplaced intertrochanteric fracture of left femur, initial encounter for closed fracture Code(s): S72.142A - Displaced intertrochanteric fracture of left femur, initial encounter for closed fracture Status: Acute Assessment and Plan: POD 2 LEFT IT NAIL DOING WELL. HE WILL REQUIRE SNF/REHAB AT TIME OF DISCHARGE. HE WILL NEED DVT PROPHYLAXIS FOR AT LEAST 3 WEEKS. HE WILL F/U IN 6 WEEKS IN MY OFFICE Subjective Subjective Date/Time Seen: 05/22/23 10:35 Interval history: POD 2 DOING WELL. SLOW PROGRESS WITH PT. 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 [place] INTACT [employer]G H[employer] SIGN CALF SOFT NON TENDER Objective Data Vital Signs Vital Signs: Vital Signs - 24 hr 05/21/23 10:50 05/21/23 13:08 05/21/23 17:08 Temperature 36.6 C 35.9 C L Pulse Rate 76 71 Respiratory Rate 18 18 Blood Pressure 132/75 134/73 Pulse Oximetry 94 93 Oxygen Delivery Room Air 05/21/23 20:00 05/21/23 22:15 05/22/23 00:56 Temperature 36.4 C L 37.1 C Pulse Rate 71 87 88 Respiratory Rate 18 18 20 Blood Pressure 150/86 H 164/105 H Pulse Oximetry 93 95 95 Oxygen Delivery Room Air 05/22/23 06:30 Temperature 36.5 C Pulse Rate 75 Respiratory Rate 18 Blood Pressure 172/89 H Pulse Oximetry 98 Oxygen Delivery Intake/Output Intake/Output: Intake & Output 05/19/23 05/20/23 05/21/23 05/22/23 23:59 23:59 23:59 23:59 Intake Total 150 1652 4147.5 120 Output Total 100 1185 2200 1300 Balance 50 467 1947.5 -1180 Meds/Results Medications: Active Medications Generic Name Dose Route Start Last Admin Trade Name Freq PRN Reason Stop Dose Admin Acetaminophen 1,000 mg 05/20/23 15:23 Acetaminophen 500 Mg Tablet PO Q6H PRN Pain (Scale Score 1-3) Hydrocodone Bitart/Acetaminophen 1 tab 05/20/23 15:23 05/21/23 20:43 Hydrocodone/Acetaminophen (*Crx) 7.5-325 Mg Tablet PO 1 tab Q3H PRN Administration Pain Rated 4-6 Hydrocodone Bitart/Acetaminophen 2 tab 05/20/23 15:23 Hydrocodone/Acetaminophen (*Crx) 7.5-325 Mg Tablet PO Q6H PRN Pain Rated 7-10 Al Hydrox/Mg Hydrox/Simethicone 30 ml 05/19/23 02:25 Mag Hydrox/Al Hydrox/Simeth 30 Ml Udc PO Q6H PRN Indigestion Amlodipine Besylate 10 mg 05/21/23 09:40 05/22/23 09:47 Amlodipine Besylate 5 Mg Tablet PO 10 mg QAM ROCIO Administration Ascorbic Acid 500 mg 05/19/23 13:55 05/22/23 09:46 Ascorbic Acid 500 Mg Tablet PO 500 mg DAILY ROCIO Administration Aspirin 325 mg 05/20/23 21:00 05/22/23 09:47 Aspirin 325 Mg Enteric Tablet PO 325 mg Q12HR ROCIO Administration Atorvastatin Calcium 20 mg 05/19/23 13:55 05/22/23 09:47 Atorvastatin 20 Mg Tablet PO 20 mg DAILY ROCIO Administration Bisacodyl 5 mg 05/19/23 13:34 Bisacodyl 5 Mg Tablet Ec PO DAILY PRN Constipation Brimonidine Tartrate 1 drop 05/19/23 13:55 05/22/23 09:47 Brimonidine Tartrate 0.2% Op Soln 5 Ml Btl EACH EYE 1 drop DAILY ROCIO Administration Calcitriol 0.25 mcg 05/22/23 09:00 05/22/23 09:50 Calcitriol 0.25 Mcg Capsule PO 0.25 mcg MoWeFr@0900 ROCIO Administration Cyanocobalamin 1,000 mcg 05/19/23 13:55 05/22/23 09:46 Cyanocobalamin 1,000 Mcg Tablet PO 1,000 mcg QAM ROCIO Administration Dextrose 12.5 gm 05/19/23 14:00 Dextrose 50% 25 Gm/50 Ml Syringe IV PUSH PRN PRN Hypoglycemia Protocol Diazepam 5 mg 05/20/23 15:23 Diazepam (*Crx) 5 Mg Tablet PO Q8H PRN Muscle Spasm Doxazosin Mesylate 2 mg 05/19/23 13:55 05/22/23 09:46 Doxazosin Mesylate 2 Mg Tablet PO 2 mg DAILY ROCIO Administration Famotidine 20 mg 05/20/23 21:00 05/22/23 09:47 Famotidine 20 Mg Tablet PO 20 mg Q12HR ROCIO
[2023-05-22 11:16] LABS: Glucose Point of Care 145 mg/dl (65-105)
[2023-05-22] MEDS: MAGNESIUM OXIDE 200 MG TABLET PO (12:47)
[2023-05-22] MEDS: ZINC SULFATE 220 MG CAPSULE PO (12:47)
[2023-05-22 13:53] VITALS: BP 136/87; PULSE 80; RESP 18; TEMP 35.9; O2SAT 99
--- NOTE | 2023-05-22 15:33 | PM.DS ---
DS: Admitting Diagnosis Discharge Date 05/22/23 Admitting Diagnosis (1) Sepsis: ?Code(s): A41.9 - Sepsis, unspecified organism ?Status:?Acute (2) Closed intertrochanteric fracture of left hip: ?Qualifiers: ?Encounter type:?initial encounter??Fracture alignment:?nondisplaced? Qualified Code(s):?S72.145A - Nondisplaced intertrochanteric fracture of left femur, initial encounter for closed fracture ?Code(s): S72.142A - Displaced intertrochanteric fracture of left femur, initial encounter for closed fracture ?Status:?Acute (3) Accidental fall from bed: ?Qualifiers: ?Encounter type:?initial encounter? Qualified Code(s):?W06.XXXA - Fall from bed, initial encounter ?Code(s): W06.XXXA - Fall from bed, initial encounter ?Status:?Acute (4) UTI (urinary tract infection): ?Qualifiers: ?Hematuria presence:?without hematuria??Urinary tract infection type:?acute cystitis? Qualified Code(s):?N30.00 - Acute cystitis without hematuria ?Code(s): N39.0 - Urinary tract infection, site not specified ?Status:?Acute DS: Discharge Diagnosis Discharge Diagnosis (1) Sepsis: Code(s): A41.9 - Sepsis, unspecified organism Status: Acute (2) Closed intertrochanteric fracture of left hip: Qualifiers: Encounter type: initial encounter Fracture alignment: nondisplaced Qualified Code(s): S72.145A - Nondisplaced intertrochanteric fracture of left femur, initial encounter for closed fracture Code(s): S72.142A - Displaced intertrochanteric fracture of left femur, initial encounter for closed fracture Status: Acute (3) Accidental fall from bed: Qualifiers: Encounter type: initial encounter Qualified Code(s): W06.XXXA - Fall from bed, initial encounter Code(s): W06.XXXA - Fall from bed, initial encounter Status: Acute (4) UTI (urinary tract infection): Qualifiers: Hematuria presence: without hematuria Urinary tract infection type: acute cystitis Qualified Code(s): N30.00 - Acute cystitis without hematuria Code(s): N39.0 - Urinary tract infection, site not specified Status: Acute DS: Summary Hospital Course Hospital Course: Per H&P, this is a 73-year-old male with past medical history significant for GERD, type diabetes mellitus, peripheral diabetic neuropathy, benign prostatic hyperplasia, congestive heart failure, chronic pain, history of alcohol abuse, low back pain chronic kidney disease.? Patient was brought to the emergency room via EMS he fell out of his bed landing on his left hip was unable to get back up on his? own,? patient has been in his usual state of health, denies any loss of consciousness, no fevers, no rigors, no chills, no nausea, no vomiting.? Preliminary workup in emergency room was significant for hip x-ray which shows intertrochanteric fracture of the left hip.? Patient has been admitted for further evaluation management and treatment. The following med issues have been addressed during hospitalization (1) UTI (urinary tract infection): ?Qualifiers: ?Hematuria presence:?without hematuria??Urinary tract infection type:?acute cystitis? Qualified Code(s):?N30.00 - Acute cystitis without hematuria ?Code(s): N39.0 - Urinary tract infection, site not specified ?Status:?Acute ?Assessment and Plan: ?05/19/2023: ?UA showing 1+ urine protein, 1+ leukocytes, 21-50 urine wbc's, 1+ bacteria ?urine culture obtained and pending ?continue Rocephin 05/20/23: Urine culture shown greater than 100,000 g positive organisms, none uropathogenic DC Rocephin Patient on Ancef IV 05/20 Urinary retention Patient has history of penile implant Patient has urinary retention, Toure catheter was removed yesterday. Bladder scan today suggests urine retention Place the patient back on Toure catheter Consulted urologist Will discharge patient with Toure catheter, patient
[2023-05-22 16:13] LABS: Glucose Point of Care 132 mg/dl (65-105)
== END 2023-05-22 16:48 | DRG 853 ==
LOC: ANHED 23:19 → ANH3MEDSUR 05-19 00:44
PROVIDERS: Nurse Practitioner Acute Care; Orthopaedic Surgery; Admitting Provider Internal Medicine; Emergency Provider Physician Assistant; PCP Family Medicine Adolescent Medicine; Visit Provider Hospitalist
PROC: 0QS736Z Reposition Left Upper Femur with Intramedullary Internal Fixation Device, Percutaneous Approach (ICD-10-PCS; CPT 27245; principal; 2023-05-20 14:00)
DX: A41.9 Sepsis, unspecified organism (principal); S72.145A Nondisplaced intertrochanteric fracture of left femur, initial encounter for closed fracture; I48.20 Chronic atrial fibrillation, unspecified; N39.0 Urinary tract infection, site not specified; I12.9 Hypertensive chronic kidney disease with stage 1 through stage 4 chronic kidney disease, or unspecified chronic kidney disease; I50.9 Heart failure, unspecified; N18.32 Chronic kidney disease, stage 3b; E11.22 Type 2 diabetes mellitus with diabetic chronic kidney disease; E11.42 Type 2 diabetes mellitus with diabetic polyneuropathy; K21.9 Gastro-esophageal reflux disease without esophagitis; E78.5 Hyperlipidemia, unspecified; J45.30 Mild persistent asthma, uncomplicated; N40.1 Benign prostatic hyperplasia with lower urinary tract symptoms; R33.8 Other retention of urine; M81.0 Age-related osteoporosis without current pathological fracture; M19.90 Unspecified osteoarthritis, unspecified site; M54.50 Low back pain, unspecified; G89.29 Other chronic pain; H40.1132 Primary open-angle glaucoma, bilateral, moderate stage; W06.XXXA Fall from bed, initial encounter; F10.11 Alcohol abuse, in remission; Z86.711 Personal history of pulmonary embolism; Z79.82 Long term (current) use of aspirin
CPT/HCPCS: 36415; 71045; 73502; 80053; 81001; 82550; 82948; 83036; 83735; 84443; 85025; 85055; 85610; 85730; 86850; 86900; 86901; 87040; 87086; 93005; 96365; 96375; 96376; 97110; 97116; 97161; 97166; 97530; 97535; 99199; 99285; A9270; C1713; G0378; J0360; J0690; J0696; J1100; J1170; J1596; J2270; J2371; J2405; J2704; J3010; J7030; J7120

== ENCOUNTER 2023-05-22 17:26 | Inpatient (IN) | payer MEDICARE, SELFPAY ==
--- NOTE | ~2023-05-22 | XR_ITS ---
Clinical Indication: Cough PA and lateral views of the chest: Comparison: 05/13/2023 Findings: The lungs are clear, without evidence of focal consolidation or pleural effusion. Cardiome diastinal silhouette is within normal limits. Extensive thoracolumbar spinal fixation hardware is unc hanged. Impression: Clear lungs. Stable extensive thoracolumbar spinal fixation hardware. Reviewed, dictated and finalized at location . Impression: Clear lungs. Stable extensive thoracolumbar spinal fixation hardware.
[2023-05-22 17:28] VITALS: BMI 27.6
[2023-05-22 17:30] VITALS: O2SAT 98
--- NOTE | 2023-05-22 17:30 | ADMGEN ---
This patient, Santi Torrez, was admitted to 2nd Floor Room 226-1. Patient/family oriented to hospital policies and general routines including ID bracelet, bed and alarms, visiting hours, pain management, procedures, bathroom and other care routines, personal items, smoking policy, room service/diet, and visiting hours. Information on how to activate the Rapid Response Team has been discussed. Patient/Family are encouraged to report perceived risks to care and to ask questions if they do not understand what they are told or what they should do.
[2023-05-22 18:50] VITALS: O2SAT 98
[2023-05-22] MEDS: ASPIRIN 325 MG ENTERIC TABLET PO (21:13)
[2023-05-22] MEDS: LATANOPROST 0.005% OP SOLN 2.5 ML BTL 1 DROP EACH EYE (21:13)
[2023-05-22] MEDS: TAMSULOSIN HCL 0.4 MG CAPSULE 0.8 MG PO (21:13)
[2023-05-22 21:24] LABS: Glucose Point of Care 102 mg/dl (65-105)
[2023-05-23] VITALS: BP 157/118; PULSE 80; RESP 18; TEMP 36.1; O2SAT 95
[2023-05-23] MEDS: HYDROcodone/acetaminophen (*CRX) 7.5-325 MG TABLET 1 TAB PO ×3 (02:55→19:17)
--- NOTE | 2023-05-23 04:06 | PC.NURSE ---
Patient anxious/agitated/confused, sitting in recliner, requesting phone to Call the police , phone given, pt unable to state exactly why he needs the police. Pt believes that someone has stolen his wallet and credit cards. Multiple attempts made to reorient pt by 3 nurses, all ineffective. Pt safe and comfortable, will continue to monitor and assist as staff is able.
--- NOTE | 2023-05-23 07:06 | PM.IMHP ---
H&P: HPI History of Present Illness Date/Time: 05/23/23 07:06 Chief Complaint: Swing bed, right hip fracture repair , Narrative: This is a 73 year old that is being admitted to our swing bed after left sided orif after he had a fall. Mr. Torrez has continued to improve although he has urinary retention with a urinary tract infection. Patient has has confusion and more than likley sun downers and he is only alert and orientented x2. Patient dressing to his left hip is dry and intact. Mr. Torrez has edema noted on the left side with minimal swellin go on the right . 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 I did explain to him that he was confused and our goal is to get him home for therapy to work with him. Review of Systems Review of Systems: Left his dressing dry iand intact no erythem noted down leg 1+ edema noted chowdhury catheter flowing clear yellow urine All systems reviewed & are unremarkable except as noted in HPI and below PMFSH Past Medical History Medical History (Updated 05/24/23 @ 19:27 by Katharine Garcia NP) Arthritis Atrial fib/flutter, transient BPH with obstruction/lower urinary tract symptoms (Unknown) CHF (congestive heart failure) Chronic pain Closed fracture of right hip (04/11/21) Decreased crnp strength of left hand Decreased crnp strength of right hand Diabetes mellitus Femur fracture, right (04/11/21) GERD (gastroesophageal reflux disease) (Unknown) History of alcohol abuse Hyperlipidemia (Unknown) Hypokalemia (Unknown) Knee effusion, right Left hand pain Low back pain, unspecified Mild persistent asthma, uncomplicated Numbness and tingling in both hands Numbness and tingling in left hand Osteoporosis Polyneuropathy, unspecified Primary open-angle glaucoma, bilateral, moderate stage Pulmonary embolism Stage 3b chronic kidney disease (CKD) Urinary retention UTI (urinary tract infection), bacterial Wears glasses Surgical History Surgical History History of hip surgery Right hip by [facility] 2021 History of hip surgery (04/2023) ORIF left IT hip fx History of knee surgery History of penile implant Previous back surgery Family History Family History Father CAD (coronary artery disease) Alzheimer disease Acute myocardial infarction Heart disease Hypertension Mother Alzheimer disease Hypertension Other Diabetes mellitus Social History Social History Social History: The patient is a lifelong nonsmoker. The patient does not use any alcohol marijuana or illicit drugs. 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 He is . He has 1 son who is the durable power commercial litigation attorney for healthcare. Code status full code Smoking status: Never smoker Second hand tobacco smoke exposure: No Alcohol intake: former Substance use: never Substance use type: does not use Do You Feel Safe in your Home?: Yes Lack of Transportation: No Lack of Food: Never True Current Housing: I Have Housing Concerned About Future Housing: No Difficulty Paying Gas/Electric Bills: No Difficulty Paying for Meds: No Currently Unemployed: No Education: High School Diploma/GED Difficulty w/ Childcare or Family Care: No Living arrangements: alone Occupation/Education: retired Gender identity (if verbalized by the patient): Male Sexual Orientation (if Verbalized by the Patient): Straight or Heterosexual Spiritual care concerns: No Agree to blood products: Yes Meds Home Medications and Allergies Home Medications Medication Instructions Recorded Confirmed Type brimonidine 0.2 % eye drops 1 drp ophthalmic (eye) DAILY 07/11/19 05/22/23 History tamsulosin
[2023-05-23 08:00] VITALS: BP 160/90; PULSE 78; RESP 18; TEMP 36.6; O2SAT 98
[2023-05-23 08:22] LABS: Glucose Point of Care 115 mg/dl (65-105)
[2023-05-23] MEDS: ASPIRIN 325 MG ENTERIC TABLET PO ×2 (09:13→20:28)
[2023-05-23] MEDS: polyethylene glycoL 3350 17 GM POWD.PACK PO (09:13)
[2023-05-23] MEDS: DOXAZOSIN MESYLATE 2 MG TABLET PO (09:13)
[2023-05-23] MEDS: GABAPENTIN 400 MG CAPSULE 1200 MG PO ×2 (09:13→17:19)
[2023-05-23] MEDS: CYANOCOBALAMIN 1,000 MCG TABLET 1000 MCG PO (09:13)
[2023-05-23] MEDS: MAGNESIUM OXIDE 400 MG TABLET 200 MG PO (09:15)
[2023-05-23] MEDS: amLODIPine BESYLATE 5 MG TABLET 10 MG PO (09:15)
[2023-05-23] MEDS: ATORVASTATIN 10 MG TABLET 20 MG PO (09:16)
[2023-05-23] MEDS: GLIMEPIRIDE 2 MG TABLET PO (09:16)
[2023-05-23] MEDS: FUROSEMIDE 20 MG TABLET PO ×2 (09:16→17:20)
[2023-05-23] MEDS: ASCORBIC ACID 500 MG TABLET PO (09:17)
[2023-05-23] MEDS: BRIMONIDINE TARTRATE 0.2% OP SOLN 5 ML BTL 1 DROP EACH EYE (09:17)
[2023-05-23] MEDS: ZINC SULFATE 220 MG CAPSULE PO (09:40)
[2023-05-23] MEDS: TIMOLOL MALEATE 0.5% OP SOLN 5 ML BOTTLE 1 DROP EACH EYE (09:40)
[2023-05-23 12:11] LABS: Glucose Point of Care 171 mg/dl (65-105)
[2023-05-23 12:20] VITALS: TEMP 36.6
[2023-05-23 16:00] VITALS: BP 138/86; PULSE 84; RESP 18; TEMP 36.6; O2SAT 98
[2023-05-23 17:18] LABS: Glucose Point of Care 163 mg/dl (65-105)
[2023-05-23 19:48] VITALS: PULSE 84; RESP 18; O2SAT 98
[2023-05-23] MEDS: LATANOPROST 0.005% OP SOLN 2.5 ML BTL 1 DROP EACH EYE (20:28)
[2023-05-23] MEDS: TAMSULOSIN HCL 0.4 MG CAPSULE 0.8 MG PO (20:28)
[2023-05-23 20:32] LABS: Glucose Point of Care 184 mg/dl (65-105)
[2023-05-24] VITALS: BP 119/74; PULSE 65; RESP 18; TEMP 36.3; O2SAT 97
[2023-05-24] MEDS: HYDROcodone/acetaminophen (*CRX) 7.5-325 MG TABLET 1 TAB PO ×3 (02:36→20:21)
--- NOTE | 2023-05-24 04:30 | PC.NURSE ---
Remains A&Ox1, is cooperative with staff, able to reorient for short times. Patient affectionate with staff, requesting hugs and hand holding, no overt inappropriate sexual behaviors noted.
[2023-05-24 07:58] LABS: Glucose Point of Care 142 mg/dl (65-105)
[2023-05-24 08:00] VITALS: BP 135/70; PULSE 66; RESP 16; TEMP 36.8; O2SAT 96
[2023-05-24] MEDS: TIMOLOL MALEATE 0.5% OP SOLN 5 ML BOTTLE 1 DROP EACH EYE (08:27)
[2023-05-24] MEDS: BRIMONIDINE TARTRATE 0.2% OP SOLN 5 ML BTL 1 DROP EACH EYE (08:27)
[2023-05-24] MEDS: polyethylene glycoL 3350 17 GM POWD.PACK PO (08:27)
[2023-05-24] MEDS: DOXAZOSIN MESYLATE 2 MG TABLET PO (08:27)
[2023-05-24] MEDS: GABAPENTIN 400 MG CAPSULE 1200 MG PO ×2 (08:28→17:07)
[2023-05-24] MEDS: VITAMIN B COMPLEX CAPSULE 1 CAP PO (08:28)
[2023-05-24] MEDS: CYANOCOBALAMIN 1,000 MCG TABLET 1000 MCG PO (08:28)
[2023-05-24] MEDS: ASCORBIC ACID 500 MG TABLET PO (08:28)
[2023-05-24] MEDS: ASPIRIN 325 MG ENTERIC TABLET PO ×2 (08:29→20:21)
[2023-05-24] MEDS: FUROSEMIDE 20 MG TABLET PO ×2 (08:29→17:07)
[2023-05-24] MEDS: MAGNESIUM OXIDE 400 MG TABLET 200 MG PO (08:29)
[2023-05-24] MEDS: ATORVASTATIN 10 MG TABLET 20 MG PO (08:29)
[2023-05-24] MEDS: amLODIPine BESYLATE 5 MG TABLET 10 MG PO (08:29)
[2023-05-24] MEDS: ZINC SULFATE 220 MG CAPSULE PO (08:29)
[2023-05-24 10:25] LABS: Hemoglobin A1C 6.1 % (<5.7)
[2023-05-24 16:00] VITALS: BP 122/69; PULSE 54; RESP 18; TEMP 36.6; O2SAT 95
[2023-05-24 20:00] VITALS: PULSE 54; RESP 18; O2SAT 95
[2023-05-24] MEDS: LATANOPROST 0.005% OP SOLN 2.5 ML BTL 1 DROP EACH EYE (20:20)
[2023-05-24] MEDS: TAMSULOSIN HCL 0.4 MG CAPSULE 0.8 MG PO (20:21)
[2023-05-24 23:54] VITALS: BP 131/75; PULSE 67; RESP 16; TEMP 36.8; O2SAT 97
[2023-05-25] MEDS: HYDROcodone/acetaminophen (*CRX) 7.5-325 MG TABLET 1 TAB PO ×3 (05:41→19:24)
[2023-05-25 07:43] VITALS: BP 129/72; PULSE 62; RESP 16; TEMP 36.7; O2SAT 92
[2023-05-25] MEDS: polyethylene glycoL 3350 17 GM POWD.PACK PO (09:33)
[2023-05-25] MEDS: GABAPENTIN 400 MG CAPSULE 1200 MG PO ×2 (09:34→17:56)
[2023-05-25] MEDS: amLODIPine BESYLATE 5 MG TABLET 10 MG PO (09:34)
[2023-05-25] MEDS: FUROSEMIDE 20 MG TABLET PO ×2 (09:34→17:56)
[2023-05-25] MEDS: VITAMIN B COMPLEX CAPSULE 1 CAP PO (09:35)
[2023-05-25] MEDS: ATORVASTATIN 10 MG TABLET 20 MG PO (09:35)
[2023-05-25] MEDS: ASPIRIN 325 MG ENTERIC TABLET PO ×2 (09:35→21:11)
[2023-05-25] MEDS: MAGNESIUM OXIDE 400 MG TABLET 200 MG PO (09:35)
[2023-05-25] MEDS: DOXAZOSIN MESYLATE 2 MG TABLET PO (09:35)
[2023-05-25] MEDS: ASCORBIC ACID 500 MG TABLET PO (09:35)
[2023-05-25] MEDS: CYANOCOBALAMIN 1,000 MCG TABLET 1000 MCG PO (09:36)
[2023-05-25] MEDS: ZINC SULFATE 220 MG CAPSULE PO (09:37)
[2023-05-25] MEDS: TIMOLOL MALEATE 0.5% OP SOLN 5 ML BOTTLE 1 DROP EACH EYE (09:37)
[2023-05-25] MEDS: BRIMONIDINE TARTRATE 0.2% OP SOLN 5 ML BTL 1 DROP EACH EYE (09:38)
[2023-05-25] MEDS: calcitrioL 0.25 MCG CAPSULE PO (10:08)
[2023-05-25 16:30] VITALS: BP 111/74; PULSE 67; RESP 16; TEMP 36.9; O2SAT 95
[2023-05-25 20:00] VITALS: PULSE 67; RESP 16; O2SAT 95
[2023-05-25] MEDS: QUEtiapine FUMARATE 25 MG TABLET PO (21:11)
[2023-05-25] MEDS: LATANOPROST 0.005% OP SOLN 2.5 ML BTL 1 DROP EACH EYE (21:11)
[2023-05-25] MEDS: TAMSULOSIN HCL 0.4 MG CAPSULE 0.8 MG PO (21:11)
[2023-05-26] VITALS: BP 141/74; PULSE 63; RESP 18; TEMP 37.1; O2SAT 95
[2023-05-26 07:35] VITALS: BP 152/78; PULSE 61; RESP 16; TEMP 37.4; O2SAT 98
[2023-05-26 08:30] VITALS: O2SAT 98
[2023-05-26] MEDS: VITAMIN B COMPLEX CAPSULE 1 CAP PO (09:06)
[2023-05-26] MEDS: ASPIRIN 325 MG ENTERIC TABLET PO ×2 (09:06→20:24)
[2023-05-26] MEDS: MAGNESIUM OXIDE 400 MG TABLET 200 MG PO (09:06)
[2023-05-26] MEDS: ZINC SULFATE 220 MG CAPSULE PO (09:06)
[2023-05-26] MEDS: amLODIPine BESYLATE 5 MG TABLET 10 MG PO (09:06)
[2023-05-26] MEDS: ASCORBIC ACID 500 MG TABLET PO (09:06)
[2023-05-26] MEDS: DOXAZOSIN MESYLATE 2 MG TABLET PO (09:07)
[2023-05-26] MEDS: FUROSEMIDE 20 MG TABLET PO ×2 (09:07→16:35)
[2023-05-26] MEDS: ATORVASTATIN 10 MG TABLET 20 MG PO (09:07)
[2023-05-26] MEDS: BRIMONIDINE TARTRATE 0.2% OP SOLN 5 ML BTL 1 DROP EACH EYE (09:07)
[2023-05-26] MEDS: GABAPENTIN 400 MG CAPSULE 1200 MG PO ×2 (09:07→16:35)
[2023-05-26] MEDS: CYANOCOBALAMIN 1,000 MCG TABLET 1000 MCG PO (09:07)
[2023-05-26] MEDS: TIMOLOL MALEATE 0.5% OP SOLN 5 ML BOTTLE 1 DROP EACH EYE (09:08)
[2023-05-26] MEDS: HYDROcodone/acetaminophen (*CRX) 7.5-325 MG TABLET 1 TAB PO ×2 (10:29→20:23)
[2023-05-26 16:35] VITALS: BP 110/67; PULSE 60; RESP 16; TEMP 37.2; O2SAT 96
[2023-05-26] MEDS: TAMSULOSIN HCL 0.4 MG CAPSULE 0.8 MG PO (20:23)
[2023-05-26] MEDS: LATANOPROST 0.005% OP SOLN 2.5 ML BTL 1 DROP EACH EYE (20:24)
[2023-05-27] VITALS: BP 128/77; PULSE 64; RESP 20; TEMP 37.2; O2SAT 96
[2023-05-27] MEDS: QUEtiapine FUMARATE 25 MG TABLET PO ×2 (00:40→20:41)
--- NOTE | 2023-05-27 00:40 | PC.NURSE ---
Pt attempting to get out of bed without assist. Pt states he has to go but couldnt say where he was going. Pt assisted back into bed and pt was given Seroquel 25 mg PO to relieve restlessness.
--- NOTE | 2023-05-27 02:15 | PC.NURSE ---
Pt asleep and no signs of restlessness noted.
--- NOTE | 2023-05-27 04:12 | PC.NURSE ---
Pt asleep and no signs of agitation noted.
--- NOTE | 2023-05-27 06:00 | PC.NURSE ---
Pt is somewhat restless and states he needs to go to the bank; Attempted to reorient pt but with limited success. Pt assisted with repositioning in bed.
[2023-05-27 08:00] VITALS: BP 124/66; PULSE 65; TEMP 36.8; O2SAT 95
[2023-05-27] MEDS: VITAMIN B COMPLEX CAPSULE 1 CAP PO (08:30)
[2023-05-27] MEDS: GABAPENTIN 400 MG CAPSULE 1200 MG PO ×2 (09:32→16:45)
[2023-05-27] MEDS: CYANOCOBALAMIN 1,000 MCG TABLET 1000 MCG PO (09:32)
[2023-05-27] MEDS: ASPIRIN 325 MG ENTERIC TABLET PO ×2 (09:32→20:40)
[2023-05-27] MEDS: FUROSEMIDE 20 MG TABLET PO ×2 (09:32→16:44)
[2023-05-27] MEDS: ATORVASTATIN 10 MG TABLET 20 MG PO (09:33)
[2023-05-27] MEDS: DOXAZOSIN MESYLATE 2 MG TABLET PO (09:33)
[2023-05-27] MEDS: ASCORBIC ACID 500 MG TABLET PO (09:33)
[2023-05-27] MEDS: MAGNESIUM OXIDE 400 MG TABLET 200 MG PO (09:33)
[2023-05-27] MEDS: ZINC SULFATE 220 MG CAPSULE PO (09:34)
[2023-05-27] MEDS: amLODIPine BESYLATE 5 MG TABLET 10 MG PO (09:34)
[2023-05-27] MEDS: calcitrioL 0.25 MCG CAPSULE PO (09:34)
[2023-05-27] MEDS: polyethylene glycoL 3350 17 GM POWD.PACK PO (09:34)
[2023-05-27] MEDS: TIMOLOL MALEATE 0.5% OP SOLN 5 ML BOTTLE 1 DROP EACH EYE (09:40)
[2023-05-27] MEDS: BRIMONIDINE TARTRATE 0.2% OP SOLN 5 ML BTL 1 DROP EACH EYE (09:40)
[2023-05-27] MEDS: HYDROcodone/acetaminophen (*CRX) 7.5-325 MG TABLET 1 TAB PO (11:18)
[2023-05-27 15:41] VITALS: BP 145/76; PULSE 71; RESP 18; TEMP 36.6; O2SAT 98
--- NOTE | 2023-05-27 16:18 | PC.NURSE ---
Pts son is in room at this time visiting. He notices that his father is more confused over past couple days. Asking about UTI and if possible that he could have infection back again. Pt c/o some discomfort c his chowdhury cath. Noted patent and draingin but ouput is less today. Per report pt only has had about 450 ml in his chowdhury cath output all day today. Pt given ice water to drink and assistance in drinking and encouraged to increase water. Spoke c stock worker Patty to obtain another UTI since noted last urine collection was around 05/20 when pt d/c from previous facility. POC discussed c pt and his son.
[2023-05-27 18:45] LABS: Appearance Urine Clear (Clear); Bilirubin Urine Negative (Negative); Blood Urine Negative (Negative); Color Urine Light Yellow (Yellow); Glucose Urine UA Negative (Negative); Ketones Urine Negative (Negative); Leukocyte Esterase Ur Negative LEU/UL (Negative); Nitrate Urine Negative (Negative); Protein Urine Trace (Negative); Urobilinogen Urine 0.2 mg/dL (0.2-1.0); pH Urine 5.5 (5.0-8.0)
[2023-05-27 18:56] LABS: Add Urine Microscopic? YES; Bacteria Urine Trace /hpf; RBC Urine 0-2 /hpf (0-2); Squamous Epithelial Cell Urine Rare /hpf (Few); WBC Urine 0-3 /hpf (0-3)
[2023-05-27 19:53] VITALS: PULSE 74; RESP 18; O2SAT 95
[2023-05-27] MEDS: LATANOPROST 0.005% OP SOLN 2.5 ML BTL 1 DROP EACH EYE (20:40)
[2023-05-27] MEDS: TAMSULOSIN HCL 0.4 MG CAPSULE 0.8 MG PO (20:40)
[2023-05-27 23:57] VITALS: BP 150/76; PULSE 79; RESP 18; TEMP 37.7; O2SAT 94
[2023-05-28] MEDS: HYDROcodone/acetaminophen (*CRX) 7.5-325 MG TABLET 1 TAB PO ×3 (00:24→17:20)
--- NOTE | 2023-05-28 00:28 | PC.NURSE ---
Pt is very confused at this time, attempting to get out of bed. Pt assisted back to bed and repositioned, he is very warm to touch, temp at 100.0 Attempts made to reorient pt to surroundings, pt. c/o pain in his legs and hip. Pain pill given for pain.
--- NOTE | 2023-05-28 07:57 | PM.EVENT ---
Event Note Event Note Event Note: Patient is possibly aspirating on his food a order for speech and chest xray has been order. Patient has been confused when I initally assessed him . Family is concerned this mentation may be patient new normal as this is not a new finding for me . Family informs me they thought he would come out of this confusion. UA is negative.
[2023-05-28 08:00] VITALS: BP 101/52; PULSE 67; RESP 18; TEMP 37.1; O2SAT 99
--- NOTE | 2023-05-28 08:05 | PC.NURSE ---
speech aware of need for eval. will be here around 12n
[2023-05-28] MEDS: polyethylene glycoL 3350 17 GM POWD.PACK PO (09:12)
[2023-05-28] MEDS: ZINC SULFATE 220 MG CAPSULE PO (09:12)
[2023-05-28] MEDS: GABAPENTIN 400 MG CAPSULE 1200 MG PO ×2 (09:12→17:19)
[2023-05-28] MEDS: CYANOCOBALAMIN 1,000 MCG TABLET 1000 MCG PO (09:13)
[2023-05-28] MEDS: DOXAZOSIN MESYLATE 2 MG TABLET PO (09:13)
[2023-05-28] MEDS: ATORVASTATIN 10 MG TABLET 20 MG PO (09:13)
[2023-05-28] MEDS: ASPIRIN 325 MG ENTERIC TABLET PO ×2 (09:13→20:17)
[2023-05-28] MEDS: MAGNESIUM OXIDE 400 MG TABLET 200 MG PO (09:13)
[2023-05-28] MEDS: FUROSEMIDE 20 MG TABLET PO ×2 (09:13→17:20)
[2023-05-28] MEDS: VITAMIN B COMPLEX CAPSULE 1 CAP PO (09:13)
[2023-05-28] MEDS: BRIMONIDINE TARTRATE 0.2% OP SOLN 5 ML BTL 1 DROP EACH EYE (09:14)
[2023-05-28] MEDS: TIMOLOL MALEATE 0.5% OP SOLN 5 ML BOTTLE 1 DROP EACH EYE (09:15)
[2023-05-28] MEDS: ASCORBIC ACID 500 MG TABLET PO (09:15)
[2023-05-28 16:00] VITALS: BP 131/70; PULSE 60; RESP 20; TEMP 36.6; O2SAT 98
[2023-05-28 20:00] VITALS: PULSE 60; RESP 20; O2SAT 98
[2023-05-28] MEDS: TAMSULOSIN HCL 0.4 MG CAPSULE 0.8 MG PO (20:17)
[2023-05-28] MEDS: QUEtiapine FUMARATE 25 MG TABLET PO (20:17)
[2023-05-28] MEDS: LATANOPROST 0.005% OP SOLN 2.5 ML BTL 1 DROP EACH EYE (20:18)
[2023-05-28] MEDS: ACETAMINOPHEN 500 MG TABLET 1000 MG PO (20:18)
[2023-05-29] VITALS: BP 158/69; PULSE 67; RESP 17; TEMP 37; O2SAT 97
--- NOTE | 2023-05-29 05:53 | PC.NURSE ---
Patient was in bed at the start of the shift. He had received [place] for pain at dinner time. He had some pain at bedtime, and was given tylenol for pain, and seroquel to help him remain calm. Patient was then able to sleep well. Patient has three incision sites with jose intact. It is well approximated with no signs of infection or drainage. He remains weight bearing as tolerated. Patient was using a awa stedy with one assist earlier in the day. His vitals were WNL with the exception of blood pressure, which was 158/69.
[2023-05-29 08:00] VITALS: BP 133/67; PULSE 60; RESP 20; TEMP 36.9; O2SAT 95
[2023-05-29] MEDS: CYANOCOBALAMIN 1,000 MCG TABLET 1000 MCG PO (08:40)
[2023-05-29] MEDS: DOXAZOSIN MESYLATE 2 MG TABLET PO (08:40)
[2023-05-29] MEDS: ASPIRIN 325 MG ENTERIC TABLET PO ×2 (08:40→20:42)
[2023-05-29] MEDS: ATORVASTATIN 10 MG TABLET 20 MG PO (08:40)
[2023-05-29] MEDS: GABAPENTIN 400 MG CAPSULE 1200 MG PO ×2 (08:40→17:27)
[2023-05-29] MEDS: ASCORBIC ACID 500 MG TABLET PO (08:40)
[2023-05-29] MEDS: FUROSEMIDE 20 MG TABLET PO ×2 (08:40→17:27)
[2023-05-29] MEDS: VITAMIN B COMPLEX CAPSULE 1 CAP PO (08:40)
[2023-05-29] MEDS: amLODIPine BESYLATE 5 MG TABLET 10 MG PO (08:41)
[2023-05-29] MEDS: BRIMONIDINE TARTRATE 0.2% OP SOLN 5 ML BTL 1 DROP EACH EYE (08:41)
[2023-05-29] MEDS: MAGNESIUM OXIDE 400 MG TABLET 200 MG PO (08:41)
[2023-05-29] MEDS: TIMOLOL MALEATE 0.5% OP SOLN 5 ML BOTTLE 1 DROP EACH EYE (08:41)
[2023-05-29] MEDS: polyethylene glycoL 3350 17 GM POWD.PACK PO (08:41)
[2023-05-29] MEDS: ZINC SULFATE 220 MG CAPSULE PO (08:41)
[2023-05-29] MEDS: calcitrioL 0.25 MCG CAPSULE PO (08:50)
--- NOTE | 2023-05-29 10:07 | PM.EVENT ---
Event Note Event Note Event Note: I am assuming care of this patient. He is resting in bed in no acute distress. He asked me how'd you get in here ? He thinks he is at his home. He knows that he had fall with the femur fracture and recent surgery. He is also able to tell me that it is May 2023. Per the notes and nursing reports, this seems to be how his orientation has been. He is a urinary catheter for urinary retention. He has been receiving Flomax at night. Will trial void trial today. P.r.n. bladder scans and straight cath as needed. Repeat UA today prior to Toure removal just to make sure he does not have UTI from the catheter that could be contributing to his mentation. He has been afebrile. Will check CBC today just to make sure does not have a white count. Suspect his confusion is delirium. He has no complaints for me today other than some left-sided hip tenderness. Incision was assessed is clean dry and intact and approximated with jose and open air.
--- NOTE | 2023-05-29 10:32 | PC.NURSE ---
1000 chowdhury removed pt nirav well pt educated on using the urinal
[2023-05-29 10:40] LABS: Basophils Absolute Auto 0.05 K/mm3 (0.00-0.10); Basophils Percent Auto 0.6 % (0.0-1.0); Eosinophils Absolute Auto 0.53 K/mm3 (0.02-0.50); Eosinophils Percent Auto 6.3 % (1.0-6.0); Hematocrit 31.4 % (37.0-46.0); Hemoglobin 10.2 g/dL (12.4-15.3); Immature Granulocyte Absolute 0.04 K/mm3 (0.00-0.00); Immature Granulocyte Percent A 0.5 % (0.0-0.0); Lymphocytes Absolute Auto 1.67 K/mm3 (1.10-4.50); Lymphocytes Percent Auto 19.9 % (18.0-42.0); Mean Corpuscular HGB Conc 32.5 g/dL (32-36); Mean Corpuscular Hemoglobin 29.3 pg (27.0-31.0); Mean Corpuscular Volume 90.2 fL (78.0-102.0); Monocytes Absolute Auto 0.76 K/mm3 (0.10-0.90); Monocytes Percent Auto 9.1 % (2.0-11.0); Neutrophils Absolute Auto 5.34 K/mm3 (1.70-7.20); Neutrophils Percent Auto 63.6 % (50.0-70.0); Platelet Count Result 208 K/mm3 (150-420); Red Blood Count 3.48 M/mm3 (4.70-6.10); Red Cell Distribution Width 13.2 % (11.6-14.4); White Blood Count 8.4 K/mm3 (4.8-10.8)
[2023-05-29 16:00] VITALS: BP 139/72; PULSE 58; RESP 20; TEMP 36.7; O2SAT 99
[2023-05-29] MEDS: HYDROcodone/acetaminophen (*CRX) 7.5-325 MG TABLET 1 TAB PO (18:46)
--- NOTE | 2023-05-29 18:54 | PC.NURSE ---
1830 pt unable to void for 8 hrs #16 fr chowdhury inserted 350 ml out
[2023-05-29] MEDS: TAMSULOSIN HCL 0.4 MG CAPSULE 0.8 MG PO (20:42)
[2023-05-29] MEDS: LATANOPROST 0.005% OP SOLN 2.5 ML BTL 1 DROP EACH EYE (20:42)
[2023-05-29] MEDS: QUEtiapine FUMARATE 25 MG TABLET PO (23:26)
[2023-05-29] MEDS: ACETAMINOPHEN 500 MG TABLET 1000 MG PO (23:26)
[2023-05-30] VITALS: BP 140/72; PULSE 68; RESP 17; TEMP 36.8; O2SAT 96
[2023-05-30 08:00] VITALS: BP 128/64; PULSE 70; RESP 17; TEMP 36.6; O2SAT 95
[2023-05-30] MEDS: GABAPENTIN 400 MG CAPSULE 1200 MG PO ×2 (09:49→17:48)
[2023-05-30] MEDS: MAGNESIUM OXIDE 400 MG TABLET 200 MG PO (09:50)
[2023-05-30] MEDS: ASCORBIC ACID 500 MG TABLET PO (09:50)
[2023-05-30] MEDS: amLODIPine BESYLATE 5 MG TABLET 10 MG PO (09:50)
[2023-05-30] MEDS: VITAMIN B COMPLEX CAPSULE 1 CAP PO (09:51)
[2023-05-30] MEDS: DOXAZOSIN MESYLATE 2 MG TABLET PO (09:51)
[2023-05-30] MEDS: ASPIRIN 325 MG ENTERIC TABLET PO ×2 (09:51→21:25)
[2023-05-30] MEDS: FUROSEMIDE 20 MG TABLET PO ×2 (09:51→17:48)
[2023-05-30] MEDS: BRIMONIDINE TARTRATE 0.2% OP SOLN 5 ML BTL 1 DROP EACH EYE (09:51)
[2023-05-30] MEDS: ZINC SULFATE 220 MG CAPSULE PO (09:51)
[2023-05-30] MEDS: ATORVASTATIN 10 MG TABLET 20 MG PO (09:51)
[2023-05-30] MEDS: CYANOCOBALAMIN 1,000 MCG TABLET 1000 MCG PO (09:51)
[2023-05-30] MEDS: TIMOLOL MALEATE 0.5% OP SOLN 5 ML BOTTLE 1 DROP EACH EYE (09:52)
[2023-05-30 16:00] VITALS: BP 139/68; PULSE 80; RESP 17; TEMP 36.6; O2SAT 97
[2023-05-30] MEDS: ACETAMINOPHEN 500 MG TABLET 1000 MG PO (18:25)
[2023-05-30] MEDS: TAMSULOSIN HCL 0.4 MG CAPSULE 0.8 MG PO (21:25)
[2023-05-30] MEDS: QUEtiapine FUMARATE 25 MG TABLET PO (21:25)
[2023-05-30] MEDS: LATANOPROST 0.005% OP SOLN 2.5 ML BTL 1 DROP EACH EYE (21:27)
[2023-05-31] VITALS: BP 132/70; PULSE 56; RESP 18; TEMP 36.9; O2SAT 96
[2023-05-31 08:00] VITALS: BP 134/68; PULSE 64; RESP 20; TEMP 36.1; O2SAT 97
[2023-05-31] MEDS: TIMOLOL MALEATE 0.5% OP SOLN 5 ML BOTTLE 1 DROP EACH EYE (09:14)
[2023-05-31] MEDS: GABAPENTIN 400 MG CAPSULE 1200 MG PO ×2 (09:15→17:30)
[2023-05-31] MEDS: BRIMONIDINE TARTRATE 0.2% OP SOLN 5 ML BTL 1 DROP EACH EYE (09:15)
[2023-05-31] MEDS: ATORVASTATIN 10 MG TABLET 20 MG PO (09:17)
[2023-05-31] MEDS: amLODIPine BESYLATE 5 MG TABLET 10 MG PO (09:17)
[2023-05-31] MEDS: ASCORBIC ACID 500 MG TABLET PO (09:17)
[2023-05-31] MEDS: CYANOCOBALAMIN 1,000 MCG TABLET 1000 MCG PO (09:17)
[2023-05-31] MEDS: MAGNESIUM OXIDE 400 MG TABLET 200 MG PO (09:18)
[2023-05-31] MEDS: FUROSEMIDE 20 MG TABLET PO ×2 (09:19→17:31)
[2023-05-31] MEDS: ZINC SULFATE 220 MG CAPSULE PO (09:19)
[2023-05-31] MEDS: ASPIRIN 325 MG ENTERIC TABLET PO ×2 (09:19→21:44)
[2023-05-31] MEDS: VITAMIN B COMPLEX CAPSULE 1 CAP PO (09:19)
[2023-05-31] MEDS: DOXAZOSIN MESYLATE 2 MG TABLET PO (09:19)
[2023-05-31] MEDS: ACETAMINOPHEN 500 MG TABLET 1000 MG PO ×2 (09:41→18:17)
[2023-05-31] MEDS: NEOMYCIN/POLYMYXIN/BACITRACIN OINTMENT 15 GM TUBE 1 APPLIC TOPICAL (10:00)
[2023-05-31 16:00] VITALS: BP 133/77; PULSE 63; RESP 16; TEMP 36.9; O2SAT 96
--- NOTE | 2023-05-31 17:16 | P.PNCROSS_ITS ---
Event Note Event Note Event Note: Patient is complaining of his penis hurting. On assessment his penis has some d ependent swelling to the posterior aspect of his penial shaft. He also appears to have the start of some skin break down to the left side of his meatus with pink, red skin present. Penis was elevated with a towel and stat lock moved to his right thigh to provide off loading of pressure to the meatus. Will add Neosporin to be applied daily as well.
[2023-05-31 20:00] VITALS: PULSE 63; RESP 16; O2SAT 96
[2023-05-31] MEDS: LATANOPROST 0.005% OP SOLN 2.5 ML BTL 1 DROP EACH EYE (21:43)
[2023-05-31] MEDS: QUEtiapine FUMARATE 25 MG TABLET PO (21:44)
[2023-05-31] MEDS: TAMSULOSIN HCL 0.4 MG CAPSULE 0.8 MG PO (21:44)
[2023-05-31 23:58] VITALS: BP 129/64; PULSE 52; RESP 16; TEMP 36.9; O2SAT 98
[2023-06-01 08:00] VITALS: BP 126/69; PULSE 52; RESP 14; TEMP 36.8; O2SAT 97
[2023-06-01] MEDS: VITAMIN B COMPLEX CAPSULE 1 CAP PO (09:20)
[2023-06-01] MEDS: ASCORBIC ACID 500 MG TABLET PO (09:20)
[2023-06-01] MEDS: CYANOCOBALAMIN 1,000 MCG TABLET 1000 MCG PO (09:21)
[2023-06-01] MEDS: GABAPENTIN 400 MG CAPSULE 1200 MG PO ×2 (09:21→17:02)
[2023-06-01] MEDS: ASPIRIN 325 MG ENTERIC TABLET PO ×2 (09:21→21:06)
[2023-06-01] MEDS: MAGNESIUM OXIDE 400 MG TABLET 200 MG PO (09:21)
[2023-06-01] MEDS: FUROSEMIDE 20 MG TABLET PO ×2 (09:21→17:03)
[2023-06-01] MEDS: ATORVASTATIN 10 MG TABLET 20 MG PO (09:21)
[2023-06-01] MEDS: amLODIPine BESYLATE 5 MG TABLET 10 MG PO (09:23)
[2023-06-01] MEDS: DOXAZOSIN MESYLATE 2 MG TABLET PO (09:23)
[2023-06-01] MEDS: BRIMONIDINE TARTRATE 0.2% OP SOLN 5 ML BTL 1 DROP EACH EYE (09:23)
[2023-06-01] MEDS: ZINC SULFATE 220 MG CAPSULE PO (09:23)
[2023-06-01] MEDS: TIMOLOL MALEATE 0.5% OP SOLN 5 ML BOTTLE 1 DROP EACH EYE (09:25)
[2023-06-01] MEDS: NEOMYCIN/POLYMYXIN/BACITRACIN OINTMENT 15 GM TUBE 1 APPLIC TOPICAL (09:25)
[2023-06-01] MEDS: ACETAMINOPHEN 325 MG TABLET 650 MG PO ×2 (14:26→21:06)
--- NOTE | 2023-06-01 15:12 | PC.NURSE ---
Patient resting in bed. PT here to work with patient. Pateint alert and oriented. Call light and belongings within reach.
[2023-06-01 16:00] VITALS: BP 125/83; PULSE 62; RESP 16; TEMP 36.6; O2SAT 95
--- NOTE | 2023-06-01 16:01 | PC.NURSE ---
Patient resting quietly. C/O being cold, warm blanket given. Patient c/o continued pain. New order received for prn Tramadol and Lidocaine gel for penis.
[2023-06-01] MEDS: traMADol HCL (*CRX) 25 MG TABLET PO (17:03)
--- NOTE | 2023-06-01 17:14 | PC.NURSE ---
Patient participated with therapy doing bed exercises. States he feels a little better but pain is still at 7. PRN Tramadol given. Patient currently feeding self supper.
--- NOTE | 2023-06-01 17:42 | PC.NURSE ---
Urine observed on floor. Clamp to chowdhury found open. Area mopped up and housekeeping callled.
--- NOTE | 2023-06-01 18:22 | PC.NURSE ---
Patient resting quietly in bed. Patient states the Tramadol has helped his pain and patient appears relaxed. Toure cath patent and draining clear yellow urine. Call light and belongings within reach.
[2023-06-01 19:40] VITALS: PULSE 62; RESP 16; O2SAT 95
[2023-06-01] MEDS: TAMSULOSIN HCL 0.4 MG CAPSULE 0.8 MG PO (21:06)
[2023-06-01] MEDS: QUEtiapine FUMARATE 25 MG TABLET PO (21:06)
[2023-06-01] MEDS: LATANOPROST 0.005% OP SOLN 2.5 ML BTL 1 DROP EACH EYE (21:06)
[2023-06-01] MEDS: LIDOCAINE/PRILOCAINE CREAM 2.5-2.5% TUBE 1 EACH TOPICAL (21:06)
[2023-06-02] VITALS: BP 134/74; PULSE 57; RESP 16; TEMP 36.9; O2SAT 98
[2023-06-02 08:00] VITALS: BP 134/65; PULSE 52; RESP 18; TEMP 36.7; O2SAT 97
--- NOTE | 2023-06-02 09:34 | PM.EVENT ---
Event Note Event Note Event Note: Patient is having discharge from penis which is grayish and yellow. Patient has a soreor scab on tip of penis and he had a chowdhury catheter replaced yesterday. infromed by nursing staff that patient penis was swollen. I did go in and assess patient has a penile implant that at some point had been inflated. I did deflate the implant and his penis is soft and no t swollen. Because of the discharge I have placed him on IV antibioitc and obtained a culture so that we can confirm there is nothing growing. I discussed with patient if he has had a STI or STD and he denies it at this time . We will do Rocephin and Vancomycin.
[2023-06-02] MEDS: ZINC SULFATE 220 MG CAPSULE PO (09:42)
[2023-06-02] MEDS: CYANOCOBALAMIN 1,000 MCG TABLET 1000 MCG PO (09:42)
[2023-06-02] MEDS: VITAMIN B COMPLEX CAPSULE 1 CAP PO (09:42)
[2023-06-02] MEDS: ASCORBIC ACID 500 MG TABLET PO (09:42)
[2023-06-02] MEDS: ATORVASTATIN 10 MG TABLET 20 MG PO (09:43)
[2023-06-02] MEDS: GABAPENTIN 400 MG CAPSULE 1200 MG PO ×2 (09:43→16:43)
[2023-06-02] MEDS: amLODIPine BESYLATE 5 MG TABLET 10 MG PO (09:43)
[2023-06-02] MEDS: MAGNESIUM OXIDE 400 MG TABLET 200 MG PO (09:43)
[2023-06-02] MEDS: ASPIRIN 325 MG ENTERIC TABLET PO ×2 (09:43→20:51)
[2023-06-02] MEDS: FUROSEMIDE 20 MG TABLET PO ×2 (09:44→16:45)
[2023-06-02] MEDS: TIMOLOL MALEATE 0.5% OP SOLN 5 ML BOTTLE 1 DROP EACH EYE (09:44)
[2023-06-02] MEDS: BRIMONIDINE TARTRATE 0.2% OP SOLN 5 ML BTL 1 DROP EACH EYE (09:44)
[2023-06-02] MEDS: NEOMYCIN/POLYMYXIN/BACITRACIN OINTMENT 15 GM TUBE 1 APPLIC TOPICAL (09:44)
[2023-06-02] MEDS: DOXAZOSIN MESYLATE 2 MG TABLET PO (09:44)
[2023-06-02] MEDS: cefTRIAXone 2 GM/NS 100 ML 2 GM/100 ML BAG IVPB (11:22)
[2023-06-02] MEDS: VANCOMYCIN 1,500 MG/NS 500 ML 1,500 MG/500 ML BAG 250 MG IVPB (12:43)
[2023-06-02 15:43] VITALS: BP 125/67; PULSE 50; RESP 16; TEMP 36.4; O2SAT 97
[2023-06-02] MEDS: ACETAMINOPHEN 325 MG TABLET 650 MG PO (16:45)
[2023-06-02] MEDS: LIDOCAINE/PRILOCAINE CREAM 2.5-2.5% TUBE 1 EACH TOPICAL ×2 (16:47→20:56)
[2023-06-02 20:00] VITALS: PULSE 50; RESP 16; O2SAT 97
[2023-06-02] MEDS: LATANOPROST 0.005% OP SOLN 2.5 ML BTL 1 DROP EACH EYE (20:51)
[2023-06-02] MEDS: TAMSULOSIN HCL 0.4 MG CAPSULE 0.8 MG PO (20:51)
[2023-06-02] MEDS: QUEtiapine FUMARATE 25 MG TABLET PO (20:52)
[2023-06-02] MEDS: traMADol HCL (*CRX) 25 MG TABLET PO (20:53)
[2023-06-02 21:51] VITALS: TEMP 36.4
[2023-06-03] VITALS: BP 129/66; PULSE 59; RESP 16; TEMP 36.6; O2SAT 98
[2023-06-03 05:31] LABS: Estimated CRCL calculation 34 ml/min; Estimated Glomerular Filt Rate 38
[2023-06-03 08:00] VITALS: BP 123/67; PULSE 58; RESP 20; TEMP 36.2; O2SAT 98
[2023-06-03] MEDS: ZINC SULFATE 220 MG CAPSULE PO (09:02)
[2023-06-03] MEDS: ASPIRIN 325 MG ENTERIC TABLET PO ×2 (09:02→20:50)
[2023-06-03] MEDS: amLODIPine BESYLATE 5 MG TABLET 10 MG PO (09:02)
[2023-06-03] MEDS: ATORVASTATIN 10 MG TABLET 20 MG PO (09:02)
[2023-06-03] MEDS: DOXAZOSIN MESYLATE 2 MG TABLET PO (09:02)
[2023-06-03] MEDS: VITAMIN B COMPLEX CAPSULE 1 CAP PO (09:02)
[2023-06-03] MEDS: GABAPENTIN 400 MG CAPSULE 1200 MG PO ×2 (09:03→17:36)
[2023-06-03] MEDS: ASCORBIC ACID 500 MG TABLET PO (09:03)
[2023-06-03] MEDS: FUROSEMIDE 20 MG TABLET PO ×2 (09:03→17:36)
[2023-06-03] MEDS: MAGNESIUM OXIDE 400 MG TABLET 200 MG PO (09:03)
[2023-06-03] MEDS: CYANOCOBALAMIN 1,000 MCG TABLET 1000 MCG PO (09:03)
[2023-06-03] MEDS: traMADol HCL (*CRX) 25 MG TABLET PO (09:04)
[2023-06-03] MEDS: ACETAMINOPHEN 325 MG TABLET 650 MG PO ×2 (09:04→20:56)
[2023-06-03] MEDS: BRIMONIDINE TARTRATE 0.2% OP SOLN 5 ML BTL 1 DROP EACH EYE (09:05)
[2023-06-03] MEDS: LIDOCAINE/PRILOCAINE CREAM 2.5-2.5% TUBE 1 EACH TOPICAL ×2 (09:05→20:58)
[2023-06-03] MEDS: TIMOLOL MALEATE 0.5% OP SOLN 5 ML BOTTLE 1 DROP EACH EYE (09:05)
[2023-06-03] MEDS: NEOMYCIN/POLYMYXIN/BACITRACIN OINTMENT 15 GM TUBE 1 APPLIC TOPICAL (09:05)
[2023-06-03] MEDS: cefTRIAXone 2 GM/NS 100 ML 2 GM/100 ML BAG IVPB (09:23)
[2023-06-03] MEDS: calcitrioL 0.25 MCG CAPSULE PO (09:28)
[2023-06-03 16:00] VITALS: BP 134/71; PULSE 56; RESP 18; TEMP 36.6; O2SAT 98
[2023-06-03] MEDS: LATANOPROST 0.005% OP SOLN 2.5 ML BTL 1 DROP EACH EYE (20:49)
[2023-06-03] MEDS: TAMSULOSIN HCL 0.4 MG CAPSULE 0.8 MG PO (20:50)
[2023-06-03] MEDS: VANCOMYCIN 1,500 MG/NS 500 ML 1,500 MG/500 ML BAG 250 MG IVPB (23:53)
[2023-06-04] VITALS: BP 140/66; PULSE 57; RESP 15; TEMP 36.8; O2SAT 97
[2023-06-04 05:29] LABS: Estimated CRCL calculation 33 ml/min; Estimated Glomerular Filt Rate 36
[2023-06-04] MEDS: ACETAMINOPHEN 325 MG TABLET 650 MG PO ×2 (07:20→16:14)
--- NOTE | 2023-06-04 07:35 | PM.IMPN ---
Progress Note: A&P Assessment and Plan (1) Closed intertrochanteric fracture of left hip: Qualifiers: Encounter type: initial encounter Fracture alignment: nondisplaced Qualified Code(s): S72.145A - Nondisplaced intertrochanteric fracture of left femur, initial encounter for closed fracture Code(s): S72.142A - Displaced intertrochanteric fracture of left femur, initial encounter for closed fracture Status: Acute Assessment and Plan: Weakness Physical therapy pain medication prn 06/03: Improved mobility weight-bearing as tolerated. Continue therapy (2) UTI (urinary tract infection): Qualifiers: Hematuria presence: without hematuria Urinary tract infection type: acute cystitis Qualified Code(s): N30.00 - Acute cystitis without hematuria Code(s): N39.0 - Urinary tract infection, site not specified Status: Acute Assessment and Plan: oral antibiotic chowdhury catheter due to retention (3) Memory deficit: Code(s): R41.3 - Other amnesia Status: Acute Assessment and Plan: Chronic, stable (4) Urinary retention: Code(s): R33.9 - Retention of urine, unspecified Status: Acute Assessment and Plan: Chronic indwelling Chowdhury catheter unable to attempt voiding trial at this time due to infection at the head of the penis (5) BPH with obstruction/lower urinary tract symptoms: Onset Date: Unknown Code(s): N40.1 - Benign prostatic hyperplasia with lower urinary tract symptoms; N13.8 - Other obstructive and reflux uropathy Status: Chronic Assessment and Plan: See 4. (6) Infection of penis: Code(s): N48.29 - Other inflammatory disorders of penis Status: Acute Assessment and Plan: Patient is on IV Rocephin and vancomycin attending in wound culture. Time Spent With Patient Time with patient: Greater than 35 minutes Subjective Date/time seen: 06/04/23 07:35 Interval history: Patient is feeling well today. Couple days ago he was placed on IV antibiotics due infection at the head of the penis with purulence drainage. Wound cultures in process. He is on vancomycin Rocephin after consultation with [facility]. Labs obtained today showed normal white blood cell count, stable mild anemia, renal function near baseline. Nursing staff notes mobility improvement is significant over the last 1 week. He still requires assistance with ambulation but is getting stronger. Review of Systems Review of Systems: All systems reviewed & are unremarkable except as noted in HPI and below Exam Narrative: GENERAL: well-nourished and in no acute distress. HEAD: Normocephalic, atraumatic. ENT:? Mucous membranes moist. CHEST: Clear to auscultation.? No respiratory distress. HEART: Regular rate and rhythm. ? Normal peripheral pulses. ABDOMEN: Soft, nontender, nondistended. GENITOURINARY: Chowdhury catheter remains in place, clear yellow urine. Swelling and erythema at the head of the penis present with small amount of purulence drainage. Penile pump in place deflated at this time EXTREMITIES: Normal range of motion. No peripheral edema. Surgical incisions left hip well-healed SKIN: Warm dry normal color NEURO: Alert and oriented to baseline. Improving mobility with therapy. PSYCH: Normal mood and affect Objective Data Vital Signs Vital Signs: Vital Signs - 24 hr 06/03/23 08:00 06/03/23 16:00 06/04/23 00:00 Temperature 36.2 C L 36.6 C 36.8 C Pulse Rate 58 L 56 L 57 L Respiratory Rate 20 18 15 Blood Pressure 123/67 134/71 140/66 Pulse Oximetry 98 98 97 Oxygen Delivery Room Air Room Air Room Air Intake/Output Intake/Output: Intake & Output 06/01/23 06/02/23 06/03/23 06/04/23 23:59 23:59 23:59 23:59 Intake Total 2595 2260 2630 760 Output Total 7945 1884 7745 2422 Balance -1105 -665 -745 -1190 Meds/Results Medications: Active Medications Generic Name Dose Route Start Las
[2023-06-04 08:00] VITALS: BP 130/68; PULSE 58; RESP 17; TEMP 36.6; O2SAT 99
[2023-06-04] MEDS: cefTRIAXone 2 GM/NS 100 ML 2 GM/100 ML BAG IVPB (10:21)
[2023-06-04] MEDS: CYANOCOBALAMIN 1,000 MCG TABLET 1000 MCG PO (10:22)
[2023-06-04] MEDS: ASPIRIN 325 MG ENTERIC TABLET PO ×2 (10:22→20:53)
[2023-06-04] MEDS: DOXAZOSIN MESYLATE 2 MG TABLET PO (10:22)
[2023-06-04] MEDS: GABAPENTIN 400 MG CAPSULE 1200 MG PO ×2 (10:22→16:15)
[2023-06-04] MEDS: amLODIPine BESYLATE 5 MG TABLET 10 MG PO (10:22)
[2023-06-04] MEDS: VITAMIN B COMPLEX CAPSULE 1 CAP PO (10:22)
[2023-06-04] MEDS: ZINC SULFATE 220 MG CAPSULE PO (10:23)
[2023-06-04] MEDS: FUROSEMIDE 20 MG TABLET PO ×2 (10:23→16:16)
[2023-06-04] MEDS: MAGNESIUM OXIDE 400 MG TABLET 200 MG PO (10:23)
[2023-06-04] MEDS: ASCORBIC ACID 500 MG TABLET PO (10:23)
[2023-06-04] MEDS: ATORVASTATIN 10 MG TABLET 20 MG PO (10:23)
[2023-06-04] MEDS: TIMOLOL MALEATE 0.5% OP SOLN 5 ML BOTTLE 1 DROP EACH EYE (10:31)
[2023-06-04] MEDS: NEOMYCIN/POLYMYXIN/BACITRACIN OINTMENT 15 GM TUBE 1 APPLIC TOPICAL (10:31)
[2023-06-04] MEDS: BRIMONIDINE TARTRATE 0.2% OP SOLN 5 ML BTL 1 DROP EACH EYE (10:31)
[2023-06-04 11:07] LABS: Basophils Absolute Auto 0.05 K/mm3 (0.00-0.10); Basophils Percent Auto 0.7 % (0.0-1.0); Eosinophils Absolute Auto 0.41 K/mm3 (0.02-0.50); Eosinophils Percent Auto 5.9 % (1.0-6.0); Hematocrit 33.7 % (37.0-46.0); Hemoglobin 10.9 g/dL (12.4-15.3); Immature Granulocyte Absolute 0.02 K/mm3 (0.00-0.00); Immature Granulocyte Percent A 0.3 % (0.0-0.0); Lymphocytes Absolute Auto 1.34 K/mm3 (1.10-4.50); Lymphocytes Percent Auto 19.4 % (18.0-42.0); Mean Corpuscular HGB Conc 32.3 g/dL (32-36); Mean Corpuscular Volume 89.6 fL (78.0-102.0); Mean Platelet Volume 9.9 fl (8.7-11.0); Monocytes Absolute Auto 0.65 K/mm3 (0.10-0.90); Monocytes Percent Auto 9.4 % (2.0-11.0); Neutrophils Absolute Auto 4.44 K/mm3 (1.70-7.20); Neutrophils Percent Auto 64.3 % (50.0-70.0); Platelet Count Result 213 K/mm3 (150-420); Red Blood Count 3.76 M/mm3 (4.70-6.10); White Blood Count 6.9 K/mm3 (4.8-10.8)
[2023-06-04 11:23] LABS: Albumin Level 3.4 g/dL (3.4-5.0); Anion Gap 8 mmol/L (4-12); Blood Urea Nitrogen 37 mg/dL (7-18); Calcium 8.3 mg/dL (8.5-10.1); Carbon Dioxide 28 mmol/L (21-32); Chloride 103 mmol/L (98-108); Estimated CRCL calculation 32 ml/min; Estimated Glomerular Filt Rate 35; Glucose 254 mg/dL (70-99); Osmolality Calculated 305 mOsm/kg (285-295); Phosphorus 4.3 mg/dL (2.6-4.7); Potassium 4.2 mmol/L (3.5-5.1); Sodium 139 mmol/L (136-145)
[2023-06-04 16:00] VITALS: BP 124/60; PULSE 64; RESP 15; TEMP 35.5; O2SAT 98
[2023-06-04] MEDS: TAMSULOSIN HCL 0.4 MG CAPSULE 0.8 MG PO (20:52)
[2023-06-04] MEDS: QUEtiapine FUMARATE 25 MG TABLET PO (20:53)
[2023-06-04] MEDS: LATANOPROST 0.005% OP SOLN 2.5 ML BTL 1 DROP EACH EYE (20:53)
--- NOTE | 2023-06-04 22:23 | PC.NURSE ---
Edwardo Churchill, BREAKER TABLE WORKER/Hospitalist, notified that patient's swab result is staph aureus. No changes at this time.
[2023-06-05] VITALS: BP 126/74; PULSE 68; RESP 15; TEMP 36.9; O2SAT 98
[2023-06-05 08:00] VITALS: BP 141/68; PULSE 60; RESP 17; TEMP 36.6; O2SAT 99
[2023-06-05] MEDS: TIMOLOL MALEATE 0.5% OP SOLN 5 ML BOTTLE 1 DROP EACH EYE (09:27)
[2023-06-05] MEDS: amLODIPine BESYLATE 5 MG TABLET 10 MG PO (09:27)
[2023-06-05] MEDS: BRIMONIDINE TARTRATE 0.2% OP SOLN 5 ML BTL 1 DROP EACH EYE (09:27)
[2023-06-05] MEDS: VITAMIN B COMPLEX CAPSULE 1 CAP PO (09:27)
[2023-06-05] MEDS: NEOMYCIN/POLYMYXIN/BACITRACIN OINTMENT 15 GM TUBE 1 APPLIC TOPICAL (09:27)
[2023-06-05] MEDS: LIDOCAINE/PRILOCAINE CREAM 2.5-2.5% TUBE 1 EACH TOPICAL (09:27)
[2023-06-05] MEDS: ATORVASTATIN 10 MG TABLET 20 MG PO (09:28)
[2023-06-05] MEDS: ZINC SULFATE 220 MG CAPSULE PO (09:28)
[2023-06-05] MEDS: GABAPENTIN 400 MG CAPSULE 1200 MG PO ×2 (09:28→16:55)
[2023-06-05] MEDS: MAGNESIUM OXIDE 400 MG TABLET 200 MG PO (09:28)
[2023-06-05] MEDS: DOXAZOSIN MESYLATE 2 MG TABLET PO (09:28)
[2023-06-05] MEDS: CYANOCOBALAMIN 1,000 MCG TABLET 1000 MCG PO (09:28)
[2023-06-05] MEDS: ASPIRIN 325 MG ENTERIC TABLET PO ×2 (09:28→21:10)
[2023-06-05] MEDS: FUROSEMIDE 20 MG TABLET PO ×2 (09:28→16:55)
[2023-06-05] MEDS: ASCORBIC ACID 500 MG TABLET PO (09:28)
[2023-06-05] MEDS: ACETAMINOPHEN 325 MG TABLET 650 MG PO ×2 (09:39→16:53)
[2023-06-05] MEDS: calcitrioL 0.25 MCG CAPSULE PO (09:44)
[2023-06-05] MEDS: cefTRIAXone 2 GM/NS 100 ML 2 GM/100 ML BAG IVPB (10:35)
[2023-06-05 10:39] LABS: Estimated CRCL calculation 32 ml/min; Estimated Glomerular Filt Rate 35; Vancomycin Trough 11.7 ug/mL (10.0-15.0)
[2023-06-05] MEDS: VANCOMYCIN 1,500 MG/NS 500 ML 1,500 MG/500 ML BAG 250 MG IVPB (11:00)
--- NOTE | 2023-06-05 11:25 | P.PNCROSS_ITS ---
Event Note Event Note Event Note: Dr. Winkler is it consultant for urology today and we will schedule him a appointm ent for retention and chowdhury with staph in urine.
--- NOTE | 2023-06-05 11:25 | PM.EVENT ---
Event Note Event Note Event Note: Dr. Winkler is client integration manager for urology today and we will schedule him a appointment for retention and chowdhury with leonelah in urine.
[2023-06-05 16:00] VITALS: BP 120/74; PULSE 65; RESP 16; TEMP 36.7; O2SAT 94
[2023-06-05 20:00] VITALS: PULSE 72; RESP 20; O2SAT 98
[2023-06-05] MEDS: TAMSULOSIN HCL 0.4 MG CAPSULE 0.8 MG PO (21:10)
[2023-06-05] MEDS: LATANOPROST 0.005% OP SOLN 2.5 ML BTL 1 DROP EACH EYE (21:10)
--- NOTE | 2023-06-05 21:37 | PC.NURSE ---
Pt resting, awakens easily, it somewhat disoriented at first awakening. Alert x2, then p reoriented pt able to answer questions and reorients to 3. Pt denies any pain at this time, watching TV show, assists c repositioning for comfort. Call campos at pt side.
[2023-06-05] MEDS: QUEtiapine FUMARATE 25 MG TABLET PO (21:40)
[2023-06-06] VITALS: BP 126/68; PULSE 72; RESP 18; TEMP 37; O2SAT 98
[2023-06-06 08:00] VITALS: BP 128/68; PULSE 84; RESP 15; TEMP 36.6; O2SAT 95
--- NOTE | 2023-06-06 09:03 | P.PNCROSS_ITS ---
Event Note Event Note Event Note: Deflated penis pump . drainage still noted MRSA noted from culture patient alyssa ins on vancomycin.
[2023-06-06] MEDS: ASCORBIC ACID 500 MG TABLET PO (09:36)
[2023-06-06] MEDS: LIDOCAINE/PRILOCAINE CREAM 2.5-2.5% TUBE 1 EACH TOPICAL (09:36)
[2023-06-06] MEDS: BRIMONIDINE TARTRATE 0.2% OP SOLN 5 ML BTL 1 DROP EACH EYE (09:36)
[2023-06-06] MEDS: TIMOLOL MALEATE 0.5% OP SOLN 5 ML BOTTLE 1 DROP EACH EYE (09:36)
[2023-06-06] MEDS: NEOMYCIN/POLYMYXIN/BACITRACIN OINTMENT 15 GM TUBE 1 APPLIC TOPICAL (09:36)
[2023-06-06] MEDS: CYANOCOBALAMIN 1,000 MCG TABLET 1000 MCG PO (09:37)
[2023-06-06] MEDS: MAGNESIUM OXIDE 400 MG TABLET 200 MG PO (09:37)
[2023-06-06] MEDS: ZINC SULFATE 220 MG CAPSULE PO (09:37)
[2023-06-06] MEDS: GABAPENTIN 400 MG CAPSULE 1200 MG PO ×2 (09:38→16:55)
[2023-06-06] MEDS: VITAMIN B COMPLEX CAPSULE 1 CAP PO (09:38)
[2023-06-06] MEDS: ATORVASTATIN 10 MG TABLET 20 MG PO (09:39)
[2023-06-06] MEDS: amLODIPine BESYLATE 5 MG TABLET 10 MG PO (09:40)
[2023-06-06] MEDS: FUROSEMIDE 20 MG TABLET PO ×2 (09:42→16:55)
[2023-06-06] MEDS: ASPIRIN 325 MG ENTERIC TABLET PO ×2 (09:42→20:18)
[2023-06-06] MEDS: DOXAZOSIN MESYLATE 2 MG TABLET PO (09:42)
[2023-06-06] MEDS: HYDROCORTISONE 1% 30 GM CREAM 1 APPLIC TOPICAL ×2 (14:02→20:18)
[2023-06-06 16:00] VITALS: BP 134/70; PULSE 59; RESP 18; TEMP 36.8; O2SAT 95
[2023-06-06] MEDS: ACETAMINOPHEN 325 MG TABLET 650 MG PO (16:54)
[2023-06-06] MEDS: traMADol HCL (*CRX) 25 MG TABLET PO (20:17)
[2023-06-06] MEDS: QUEtiapine FUMARATE 25 MG TABLET PO (20:18)
[2023-06-06] MEDS: TAMSULOSIN HCL 0.4 MG CAPSULE 0.8 MG PO (20:18)
[2023-06-06] MEDS: LATANOPROST 0.005% OP SOLN 2.5 ML BTL 1 DROP EACH EYE (20:18)
[2023-06-06] MEDS: VANCOMYCIN 1,500 MG/NS 500 ML 1,500 MG/500 ML BAG 250 MG IVPB (23:54)
[2023-06-07] VITALS: BP 135/65; PULSE 55; RESP 16; TEMP 36.7; O2SAT 94
[2023-06-07 08:00] VITALS: BP 132/71; PULSE 72; PULSE 75; RESP 18; TEMP 36.8; O2SAT 96
[2023-06-07] MEDS: FUROSEMIDE 20 MG TABLET PO ×2 (08:40→17:07)
[2023-06-07] MEDS: ASPIRIN 325 MG ENTERIC TABLET PO ×2 (08:40→20:35)
[2023-06-07] MEDS: ASCORBIC ACID 500 MG TABLET PO (08:40)
[2023-06-07] MEDS: MAGNESIUM OXIDE 400 MG TABLET 200 MG PO (08:41)
[2023-06-07] MEDS: VITAMIN B COMPLEX CAPSULE 1 CAP PO (08:42)
[2023-06-07] MEDS: DOXAZOSIN MESYLATE 2 MG TABLET PO (08:42)
[2023-06-07] MEDS: ATORVASTATIN 10 MG TABLET 20 MG PO (08:43)
[2023-06-07] MEDS: GABAPENTIN 400 MG CAPSULE 1200 MG PO ×2 (08:44→17:07)
[2023-06-07] MEDS: CYANOCOBALAMIN 1,000 MCG TABLET 1000 MCG PO (08:44)
[2023-06-07] MEDS: ZINC SULFATE 220 MG CAPSULE PO (08:44)
[2023-06-07] MEDS: amLODIPine BESYLATE 5 MG TABLET 10 MG PO (08:44)
[2023-06-07] MEDS: HYDROCORTISONE 1% 30 GM CREAM 1 APPLIC TOPICAL ×2 (08:45→20:36)
[2023-06-07] MEDS: BRIMONIDINE TARTRATE 0.2% OP SOLN 5 ML BTL 1 DROP EACH EYE (08:46)
[2023-06-07] MEDS: TIMOLOL MALEATE 0.5% OP SOLN 5 ML BOTTLE 1 DROP EACH EYE (08:46)
[2023-06-07] MEDS: NEOMYCIN/POLYMYXIN/BACITRACIN OINTMENT 15 GM TUBE 1 APPLIC TOPICAL (08:47)
--- NOTE | 2023-06-07 11:30 | PC.NURSE ---
Chowdhury cath removed per order, explained to pt and family reason on why chowdhury cath being removed, POC discussed and will continue to follow if pt is able or unable to void on own. Pt then assisted c gait belt and walker to walk to chair and pt given sponge bath and hair cleaned and shampooed. Pt dressed and assisted back to chair to eat dinner.
--- NOTE | 2023-06-07 13:41 | PM.IMPN ---
Progress Note: A&P Assessment and Plan (1) Closed intertrochanteric fracture of left hip: Qualifiers: Encounter type: initial encounter Fracture alignment: nondisplaced Qualified Code(s): S72.145A - Nondisplaced intertrochanteric fracture of left femur, initial encounter for closed fracture Code(s): S72.142A - Displaced intertrochanteric fracture of left femur, initial encounter for closed fracture Status: Acute Assessment and Plan: Weakness Physical therapy pain medication prn Improved mobility weight-bearing as tolerated. Continue therapy (2) UTI (urinary tract infection): Qualifiers: Hematuria presence: without hematuria Urinary tract infection type: acute cystitis Qualified Code(s): N30.00 - Acute cystitis without hematuria Code(s): N39.0 - Urinary tract infection, site not specified Status: Acute Assessment and Plan: oral antibiotic chowdhury catheter due to retention 06/06: attempt voiding trial remove Chowdhury (3) Memory deficit: Code(s): R41.3 - Other amnesia Status: Acute Assessment and Plan: Chronic, stable (4) Urinary retention: Code(s): R33.9 - Retention of urine, unspecified Status: Acute Assessment and Plan: Chronic indwelling Chowdhury catheter unable to attempt voiding trial at this time due to infection at the head of the penis 06/06: Will attempt void trial/Chowdhury removal with bladder scan and parameters to replace catheter. (5) BPH with obstruction/lower urinary tract symptoms: Onset Date: Unknown Code(s): N40.1 - Benign prostatic hyperplasia with lower urinary tract symptoms; N13.8 - Other obstructive and reflux uropathy Status: Chronic Assessment and Plan: See 4. (6) Infection of penis: Code(s): N48.29 - Other inflammatory disorders of penis Status: Acute Assessment and Plan: Patient is on IV vancomycin, still with small amount of drainage Time Spent With Patient Time with patient: 25 - 35 minutes Subjective Date/time seen: 06/07/23 08:41 Interval history: Patient reports that he is feeling somewhat better, still having pain distal penis. Patient has Chowdhury catheter in place due to urinary retention from BPH. He has been on 0.8 mg tamsulosin daily for a few weeks. We will attempt voiding trial. Review of Systems Review of Systems: All systems reviewed & are unremarkable except as noted in HPI and below Exam Narrative: GENERAL: well-nourished and in no acute distress. HEAD: Normocephalic, atraumatic. ENT:? Mucous membranes moist. CHEST: Clear to auscultation.? No respiratory distress. HEART: Regular rate and rhythm. ? Normal peripheral pulses. ABDOMEN: Soft, nontender, nondistended. GENITOURINARY: Chowdhury catheter remains in place, clear yellow urine. Swelling and erythema at the head of the penis present with small amount of purulence drainage. Penile pump in place deflated at this time EXTREMITIES: Normal range of motion. No peripheral edema. Surgical incisions left hip well-healed SKIN: Warm dry normal color NEURO: Alert and oriented to baseline. Improving mobility with therapy. PSYCH: Normal mood and affect Objective Data Vital Signs Vital Signs: Vital Signs - 24 hr 06/06/23 16:00 06/07/23 00:00 06/07/23 08:00 Temperature 36.8 C 36.7 C Pulse Rate 59 L 55 L 75 Respiratory Rate 18 16 18 Blood Pressure 134/70 135/65 Pulse Oximetry 95 94 96 Oxygen Delivery Room Air Room Air Room Air 06/07/23 08:00 Temperature 36.8 C Pulse Rate 72 Respiratory Rate 18 Blood Pressure 132/71 Pulse Oximetry 96 Oxygen Delivery Room Air Intake/Output Intake/Output: Intake & Output 06/04/23 06/05/23 06/06/23 06/07/23 23:59 23:59 23:59 23:59 Intake Total 2540 2370 1210 1660 Output Total 3050 3075 2200 1650 Balance -510 -705 -990 10 Meds/Results Medications: Active Medications Generic Name Dose Route Start Last Adm
[2023-06-07 15:51] VITALS: BP 124/64; PULSE 74; RESP 16; TEMP 36.6; O2SAT 94
--- NOTE | 2023-06-07 18:05 | PC.NURSE ---
patient has voided a total of 600ml ervin urine from 2149-9406. he did this 5 different voids. is so worried that he will have to have chowdhury replaced that he is attemping to void every 15min or half hour.
[2023-06-07] MEDS: TAMSULOSIN HCL 0.4 MG CAPSULE 0.8 MG PO (20:35)
[2023-06-07] MEDS: QUEtiapine FUMARATE 25 MG TABLET PO (20:35)
[2023-06-07] MEDS: traMADol HCL (*CRX) 25 MG TABLET PO (20:35)
[2023-06-07] MEDS: LATANOPROST 0.005% OP SOLN 2.5 ML BTL 1 DROP EACH EYE (20:37)
[2023-06-08] VITALS: BP 132/76; PULSE 56; RESP 16; TEMP 36.9; O2SAT 94
[2023-06-08 08:00] VITALS: BP 140/70; PULSE 56; RESP 14; TEMP 36.6; O2SAT 94
[2023-06-08] MEDS: DOXAZOSIN MESYLATE 2 MG TABLET PO (09:04)
[2023-06-08] MEDS: ZINC SULFATE 220 MG CAPSULE PO (09:04)
[2023-06-08] MEDS: calcitrioL 0.25 MCG CAPSULE PO (09:04)
[2023-06-08] MEDS: CYANOCOBALAMIN 1,000 MCG TABLET 1000 MCG PO (09:05)
[2023-06-08] MEDS: GABAPENTIN 400 MG CAPSULE 1200 MG PO ×2 (09:05→17:36)
[2023-06-08] MEDS: MAGNESIUM OXIDE 400 MG TABLET 200 MG PO (09:05)
[2023-06-08] MEDS: ASCORBIC ACID 500 MG TABLET PO (09:06)
[2023-06-08] MEDS: VITAMIN B COMPLEX CAPSULE 1 CAP PO (09:06)
[2023-06-08] MEDS: FUROSEMIDE 20 MG TABLET PO ×2 (09:06→17:36)
[2023-06-08] MEDS: ATORVASTATIN 10 MG TABLET 20 MG PO (09:06)
[2023-06-08] MEDS: HYDROCORTISONE 1% 30 GM CREAM 1 APPLIC TOPICAL ×2 (09:07→20:33)
[2023-06-08] MEDS: amLODIPine BESYLATE 5 MG TABLET 10 MG PO (09:07)
[2023-06-08] MEDS: ASPIRIN 325 MG ENTERIC TABLET PO ×2 (09:08→20:32)
[2023-06-08] MEDS: BRIMONIDINE TARTRATE 0.2% OP SOLN 5 ML BTL 1 DROP EACH EYE (09:08)
[2023-06-08] MEDS: NEOMYCIN/POLYMYXIN/BACITRACIN OINTMENT 15 GM TUBE 1 APPLIC TOPICAL (09:10)
[2023-06-08] MEDS: TIMOLOL MALEATE 0.5% OP SOLN 5 ML BOTTLE 1 DROP EACH EYE (09:10)
[2023-06-08 10:23] LABS: Basophils Absolute Auto 0.05 K/mm3 (0.00-0.10); Basophils Percent Auto 0.8 % (0.0-1.0); Eosinophils Absolute Auto 0.46 K/mm3 (0.02-0.50); Eosinophils Percent Auto 7.4 % (1.0-6.0); Hematocrit 33.2 % (37.0-46.0); Hemoglobin 10.7 g/dL (12.4-15.3); Immature Granulocyte Absolute 0.02 K/mm3 (0.00-0.00); Immature Granulocyte Percent A 0.3 % (0.0-0.0); Lymphocytes Absolute Auto 1.27 K/mm3 (1.10-4.50); Lymphocytes Percent Auto 20.3 % (18.0-42.0); Mean Corpuscular HGB Conc 32.2 g/dL (32-36); Mean Corpuscular Hemoglobin 28.7 pg (27.0-31.0); Mean Platelet Volume 10.2 fl (8.7-11.0); Neutrophils Absolute Auto 3.95 K/mm3 (1.70-7.20); Neutrophils Percent Auto 63.2 % (50.0-70.0); Platelet Count Result 187 K/mm3 (150-420); Red Blood Count 3.73 M/mm3 (4.70-6.10); Red Cell Distribution Width 13.1 % (11.6-14.4); White Blood Count 6.3 K/mm3 (4.8-10.8)
[2023-06-08 10:43] LABS: Albumin Level 3.3 g/dL (3.4-5.0); Anion Gap 10 mmol/L (4-12); Blood Urea Nitrogen 31 mg/dL (7-18); Calcium 8.2 mg/dL (8.5-10.1); Carbon Dioxide 28 mmol/L (21-32); Chloride 101 mmol/L (98-108); Estimated CRCL calculation 35 ml/min; Estimated Glomerular Filt Rate 39; Glucose 244 mg/dL (70-99); Magnesium 1.6 mg/dL (1.8-2.4); Osmolality Calculated 302 mOsm/kg (285-295); Phosphorus 4.2 mg/dL (2.6-4.7); Potassium 4.4 mmol/L (3.5-5.1); Sodium 139 mmol/L (136-145)
[2023-06-08 11:01] LABS: Vancomycin Trough 11.1 ug/mL (10.0-15.0)
[2023-06-08] MEDS: VANCOMYCIN 1,500 MG/NS 500 ML 1,500 MG/500 ML BAG 250 MG IVPB (11:53)
--- NOTE | 2023-06-08 13:25 | PC.NURSE ---
Pt voided 200ml at 1315. Bladder scan was done and showed 88ml remaining in blader. ro
[2023-06-08] MEDS: traMADol HCL (*CRX) 25 MG TABLET PO ×2 (14:26→20:31)
[2023-06-08 16:00] VITALS: BP 135/66; PULSE 57; RESP 20; TEMP 36.8; O2SAT 99
[2023-06-08] MEDS: MAGNESIUM OXIDE 400 MG TABLET PO (17:37)
[2023-06-08 20:00] VITALS: PULSE 58; RESP 20; O2SAT 99
[2023-06-08] MEDS: TAMSULOSIN HCL 0.4 MG CAPSULE 0.8 MG PO (20:31)
[2023-06-08] MEDS: LATANOPROST 0.005% OP SOLN 2.5 ML BTL 1 DROP EACH EYE (20:32)
[2023-06-08] MEDS: QUEtiapine FUMARATE 25 MG TABLET PO (21:46)
[2023-06-09] VITALS: BP 134/62; PULSE 60; RESP 20; TEMP 36.7; O2SAT 99
[2023-06-09 08:00] VITALS: BP 138/58; PULSE 68; RESP 14; TEMP 36.6; O2SAT 97
[2023-06-09] MEDS: ASPIRIN 325 MG ENTERIC TABLET PO ×2 (09:26→21:06)
[2023-06-09] MEDS: MAGNESIUM OXIDE 400 MG TABLET PO ×2 (09:26→17:28)
[2023-06-09] MEDS: GABAPENTIN 400 MG CAPSULE 1200 MG PO ×2 (09:26→17:24)
[2023-06-09] MEDS: ASCORBIC ACID 500 MG TABLET PO (09:27)
[2023-06-09] MEDS: DOXYCYCLINE HYCLATE 100 MG TABLET PO ×2 (09:27→21:06)
[2023-06-09] MEDS: CYANOCOBALAMIN 1,000 MCG TABLET 1000 MCG PO (09:27)
[2023-06-09] MEDS: VITAMIN B COMPLEX CAPSULE 1 CAP PO (09:27)
[2023-06-09] MEDS: ZINC SULFATE 220 MG CAPSULE PO (09:27)
[2023-06-09] MEDS: FUROSEMIDE 20 MG TABLET PO ×2 (09:27→17:25)
[2023-06-09] MEDS: ATORVASTATIN 10 MG TABLET 20 MG PO (09:27)
[2023-06-09] MEDS: NEOMYCIN/POLYMYXIN/BACITRACIN OINTMENT 15 GM TUBE 1 APPLIC TOPICAL (09:28)
[2023-06-09] MEDS: amLODIPine BESYLATE 5 MG TABLET 10 MG PO (09:28)
[2023-06-09] MEDS: BRIMONIDINE TARTRATE 0.2% OP SOLN 5 ML BTL 1 DROP EACH EYE (09:28)
[2023-06-09] MEDS: DOXAZOSIN MESYLATE 2 MG TABLET PO (09:29)
[2023-06-09] MEDS: HYDROCORTISONE 1% 30 GM CREAM 1 APPLIC TOPICAL ×2 (09:29→21:14)
[2023-06-09] MEDS: TIMOLOL MALEATE 0.5% OP SOLN 5 ML BOTTLE 1 DROP EACH EYE (09:29)
[2023-06-09 16:00] VITALS: BP 142/78; PULSE 79; RESP 18; TEMP 36.9; O2SAT 99
[2023-06-09] MEDS: traMADol HCL (*CRX) 25 MG TABLET PO (18:05)
[2023-06-09] MEDS: LATANOPROST 0.005% OP SOLN 2.5 ML BTL 1 DROP EACH EYE (21:05)
[2023-06-09] MEDS: TAMSULOSIN HCL 0.4 MG CAPSULE 0.8 MG PO (21:05)
[2023-06-09] MEDS: QUEtiapine FUMARATE 25 MG TABLET PO (21:06)
[2023-06-09 23:51] VITALS: BP 137/74; PULSE 65; RESP 18; TEMP 37.1; O2SAT 95
[2023-06-10] MEDS: ACETAMINOPHEN 325 MG TABLET 650 MG PO ×2 (04:38→16:51)
--- NOTE | 2023-06-10 04:40 | PC.NURSE ---
Pt assisted to stand and urinated in urinal. Pt c/o some pain and discomfort in his legs and back. Tylenol given for pain per request.
[2023-06-10 08:00] VITALS: BP 119/74; PULSE 53; RESP 14; TEMP 36.6; O2SAT 97
[2023-06-10] MEDS: GABAPENTIN 400 MG CAPSULE 1200 MG PO ×2 (09:31→16:50)
[2023-06-10] MEDS: CYANOCOBALAMIN 1,000 MCG TABLET 1000 MCG PO (09:31)
[2023-06-10] MEDS: DOXYCYCLINE HYCLATE 100 MG TABLET PO ×2 (09:32→21:01)
[2023-06-10] MEDS: ASCORBIC ACID 500 MG TABLET PO (09:32)
[2023-06-10] MEDS: ATORVASTATIN 10 MG TABLET 20 MG PO (09:32)
[2023-06-10] MEDS: MAGNESIUM OXIDE 400 MG TABLET PO ×2 (09:32→16:51)
[2023-06-10] MEDS: ASPIRIN 325 MG ENTERIC TABLET PO ×2 (09:32→21:01)
[2023-06-10] MEDS: TIMOLOL MALEATE 0.5% OP SOLN 5 ML BOTTLE 1 DROP EACH EYE (09:32)
[2023-06-10] MEDS: VITAMIN B COMPLEX CAPSULE 1 CAP PO (09:32)
[2023-06-10] MEDS: ZINC SULFATE 220 MG CAPSULE PO (09:32)
[2023-06-10] MEDS: FUROSEMIDE 20 MG TABLET PO ×2 (09:33→16:51)
[2023-06-10] MEDS: amLODIPine BESYLATE 5 MG TABLET 10 MG PO (09:33)
[2023-06-10] MEDS: calcitrioL 0.25 MCG CAPSULE PO (09:33)
[2023-06-10] MEDS: DOXAZOSIN MESYLATE 2 MG TABLET PO (09:33)
[2023-06-10] MEDS: HYDROCORTISONE 1% 30 GM CREAM 1 APPLIC TOPICAL ×2 (09:34→21:02)
[2023-06-10] MEDS: BRIMONIDINE TARTRATE 0.2% OP SOLN 5 ML BTL 1 DROP EACH EYE (09:34)
[2023-06-10] MEDS: NEOMYCIN/POLYMYXIN/BACITRACIN OINTMENT 15 GM TUBE 1 APPLIC TOPICAL (09:34)
[2023-06-10 16:00] VITALS: BP 109/71; PULSE 69; RESP 18; TEMP 36.4; O2SAT 98
[2023-06-10] MEDS: LATANOPROST 0.005% OP SOLN 2.5 ML BTL 1 DROP EACH EYE (21:00)
[2023-06-10] MEDS: traMADol HCL (*CRX) 25 MG TABLET PO (21:00)
[2023-06-10] MEDS: TAMSULOSIN HCL 0.4 MG CAPSULE 0.8 MG PO (21:01)
[2023-06-10] MEDS: QUEtiapine FUMARATE 25 MG TABLET PO (21:01)
[2023-06-11] VITALS: BP 138/67; PULSE 60; RESP 18; TEMP 36.3; O2SAT 99
[2023-06-11 08:00] VITALS: BP 112/62; PULSE 62; RESP 18; TEMP 36.6; O2SAT 95
[2023-06-11] MEDS: VITAMIN B COMPLEX CAPSULE 1 CAP PO (09:14)
[2023-06-11] MEDS: GABAPENTIN 400 MG CAPSULE 1200 MG PO ×2 (09:14→17:48)
[2023-06-11] MEDS: polyethylene glycoL 3350 17 GM POWD.PACK PO (09:14)
[2023-06-11] MEDS: traMADol HCL (*CRX) 25 MG TABLET PO ×2 (09:15→17:47)
[2023-06-11] MEDS: MAGNESIUM OXIDE 400 MG TABLET PO ×2 (09:15→17:48)
[2023-06-11] MEDS: ASPIRIN 325 MG ENTERIC TABLET PO ×2 (09:15→20:16)
[2023-06-11] MEDS: DOXAZOSIN MESYLATE 2 MG TABLET PO (09:16)
[2023-06-11] MEDS: ATORVASTATIN 10 MG TABLET 20 MG PO (09:16)
[2023-06-11] MEDS: ASCORBIC ACID 500 MG TABLET PO (09:16)
[2023-06-11] MEDS: DOXYCYCLINE HYCLATE 100 MG TABLET PO ×2 (09:16→20:16)
[2023-06-11] MEDS: ZINC SULFATE 220 MG CAPSULE PO (09:16)
[2023-06-11] MEDS: FUROSEMIDE 20 MG TABLET PO ×2 (09:17→17:48)
[2023-06-11] MEDS: CYANOCOBALAMIN 1,000 MCG TABLET 1000 MCG PO (09:17)
[2023-06-11] MEDS: TIMOLOL MALEATE 0.5% OP SOLN 5 ML BOTTLE 1 DROP EACH EYE (09:17)
[2023-06-11] MEDS: BRIMONIDINE TARTRATE 0.2% OP SOLN 5 ML BTL 1 DROP EACH EYE (09:17)
[2023-06-11] MEDS: amLODIPine BESYLATE 5 MG TABLET 10 MG PO (09:17)
[2023-06-11] MEDS: HYDROCORTISONE 1% 30 GM CREAM 1 APPLIC TOPICAL ×2 (09:18→20:17)
[2023-06-11] MEDS: NEOMYCIN/POLYMYXIN/BACITRACIN OINTMENT 15 GM TUBE 1 APPLIC TOPICAL (09:18)
[2023-06-11 16:00] VITALS: BP 132/58; PULSE 62; RESP 18; TEMP 36.1; O2SAT 95
[2023-06-11] MEDS: TAMSULOSIN HCL 0.4 MG CAPSULE 0.8 MG PO (20:16)
[2023-06-11] MEDS: QUEtiapine FUMARATE 25 MG TABLET PO (20:16)
[2023-06-11] MEDS: LATANOPROST 0.005% OP SOLN 2.5 ML BTL 1 DROP EACH EYE (20:17)
[2023-06-12] VITALS: BP 140/69; PULSE 66; RESP 16; TEMP 36.6; O2SAT 97
[2023-06-12] MEDS: traMADol HCL (*CRX) 25 MG TABLET PO ×2 (00:19→17:08)
[2023-06-12 08:00] VITALS: BP 134/74; PULSE 82; RESP 18; TEMP 36.6; O2SAT 98
[2023-06-12] MEDS: GABAPENTIN 400 MG CAPSULE 1200 MG PO ×2 (08:48→17:09)
[2023-06-12] MEDS: ASCORBIC ACID 500 MG TABLET PO (08:48)
[2023-06-12] MEDS: BRIMONIDINE TARTRATE 0.2% OP SOLN 5 ML BTL 1 DROP EACH EYE (08:48)
[2023-06-12] MEDS: ASPIRIN 325 MG ENTERIC TABLET PO (08:48)
[2023-06-12] MEDS: TIMOLOL MALEATE 0.5% OP SOLN 5 ML BOTTLE 1 DROP EACH EYE (08:48)
[2023-06-12] MEDS: DOXYCYCLINE HYCLATE 100 MG TABLET PO ×2 (08:48→20:33)
[2023-06-12] MEDS: VITAMIN B COMPLEX CAPSULE 1 CAP PO (08:48)
[2023-06-12] MEDS: ZINC SULFATE 220 MG CAPSULE PO (08:49)
[2023-06-12] MEDS: NEOMYCIN/POLYMYXIN/BACITRACIN OINTMENT 15 GM TUBE 1 APPLIC TOPICAL (08:49)
[2023-06-12] MEDS: amLODIPine BESYLATE 5 MG TABLET 10 MG PO (08:49)
[2023-06-12] MEDS: MAGNESIUM OXIDE 400 MG TABLET PO ×2 (08:49→17:09)
[2023-06-12] MEDS: FUROSEMIDE 20 MG TABLET PO ×2 (08:49→17:09)
[2023-06-12] MEDS: DOXAZOSIN MESYLATE 2 MG TABLET PO (08:50)
[2023-06-12] MEDS: ATORVASTATIN 10 MG TABLET 20 MG PO (08:50)
[2023-06-12] MEDS: CYANOCOBALAMIN 1,000 MCG TABLET 1000 MCG PO (09:03)
[2023-06-12] MEDS: HYDROCORTISONE 1% 30 GM CREAM 1 APPLIC TOPICAL ×2 (09:05→20:40)
[2023-06-12] MEDS: polyethylene glycoL 3350 17 GM POWD.PACK PO (10:13)
[2023-06-12] MEDS: calcitrioL 0.25 MCG CAPSULE PO (10:16)
[2023-06-12 15:27] VITALS: BP 111/71; PULSE 59; RESP 16; TEMP 36.1; O2SAT 99
[2023-06-12] MEDS: TAMSULOSIN HCL 0.4 MG CAPSULE 0.8 MG PO (20:33)
[2023-06-12] MEDS: LATANOPROST 0.005% OP SOLN 2.5 ML BTL 1 DROP EACH EYE (20:33)
[2023-06-12] MEDS: QUEtiapine FUMARATE 25 MG TABLET PO (20:33)
[2023-06-12] MEDS: ACETAMINOPHEN 325 MG TABLET 650 MG PO (20:33)
[2023-06-13] VITALS: BP 127/58; PULSE 60; RESP 16; TEMP 36.6; O2SAT 97
[2023-06-13 08:00] VITALS: BP 137/84; PULSE 80; RESP 17; TEMP 36.7; O2SAT 97
[2023-06-13] MEDS: VITAMIN B COMPLEX CAPSULE 1 CAP PO (09:25)
[2023-06-13] MEDS: TIMOLOL MALEATE 0.5% OP SOLN 5 ML BOTTLE 1 DROP EACH EYE (09:25)
[2023-06-13] MEDS: ZINC SULFATE 220 MG CAPSULE PO (09:25)
[2023-06-13] MEDS: BRIMONIDINE TARTRATE 0.2% OP SOLN 5 ML BTL 1 DROP EACH EYE (09:25)
[2023-06-13] MEDS: GABAPENTIN 400 MG CAPSULE 1200 MG PO ×2 (09:25→17:24)
[2023-06-13] MEDS: DOXYCYCLINE HYCLATE 100 MG TABLET PO ×2 (09:26→20:37)
[2023-06-13] MEDS: FUROSEMIDE 20 MG TABLET PO ×2 (09:26→17:24)
[2023-06-13] MEDS: amLODIPine BESYLATE 5 MG TABLET 10 MG PO (09:26)
[2023-06-13] MEDS: DOXAZOSIN MESYLATE 2 MG TABLET PO (09:26)
[2023-06-13] MEDS: CYANOCOBALAMIN 1,000 MCG TABLET 1000 MCG PO (09:26)
[2023-06-13] MEDS: NEOMYCIN/POLYMYXIN/BACITRACIN OINTMENT 15 GM TUBE 1 APPLIC TOPICAL (09:26)
[2023-06-13] MEDS: ATORVASTATIN 10 MG TABLET 20 MG PO (09:26)
[2023-06-13] MEDS: HYDROCORTISONE 1% 30 GM CREAM 1 APPLIC TOPICAL ×2 (09:26→20:36)
[2023-06-13] MEDS: MAGNESIUM OXIDE 400 MG TABLET PO ×2 (09:26→17:24)
[2023-06-13] MEDS: ASCORBIC ACID 500 MG TABLET PO (09:26)
--- NOTE | 2023-06-13 11:03 | P.PNCROSS_ITS ---
Event Note Event Note Event Note: Spoke with patient and son about discharge. Son is requesting Santi be dischar gesammie tomorrow instead of on Thursday. patient is doing well with therapy and there is a plan set in place for home health on June 15 would be the 1st visit. It is reasonable to go ahead and discharge him tomorrow as he has good family support. We will plan for this discharge tomorrow morning.
[2023-06-13 16:00] VITALS: BP 129/75; PULSE 66; RESP 17; TEMP 36.6; O2SAT 95
[2023-06-13] MEDS: traMADol HCL (*CRX) 25 MG TABLET PO (17:23)
[2023-06-13 19:53] VITALS: PULSE 66; RESP 17; O2SAT 95
[2023-06-13] MEDS: LATANOPROST 0.005% OP SOLN 2.5 ML BTL 1 DROP EACH EYE (20:36)
[2023-06-13] MEDS: TAMSULOSIN HCL 0.4 MG CAPSULE 0.8 MG PO (20:36)
[2023-06-14] VITALS: BP 137/69; PULSE 56; RESP 20; TEMP 37.1; O2SAT 98
--- NOTE | 2023-06-14 00:05 | PC.NURSE ---
Pt resting in bed and watching TV; Pt doesnt voice any c/o discomfort at this time.
--- NOTE | 2023-06-14 01:12 | PC.NURSE ---
Pt asleep and no signs of discomfort noted.
--- NOTE | 2023-06-14 04:00 | PC.NURSE ---
Pt asleep and no signs of discomfort noted.
--- NOTE | 2023-06-14 04:40 | PC.NURSE ---
Pt attempting to get out of bed unassisted. Pt states he has to brush his teeth. Pt assisted to the bathroom with the walker, gait belt and standby assist. Pt brushed his teeth and voided in the toilet and returned to bed with the walker, gait belt and assist of one.
[2023-06-14 08:00] VITALS: BP 131/68; PULSE 56; RESP 16; TEMP 36.6; O2SAT 98
[2023-06-14] MEDS: ATORVASTATIN 10 MG TABLET 20 MG PO (09:19)
[2023-06-14] MEDS: amLODIPine BESYLATE 5 MG TABLET 10 MG PO (09:19)
[2023-06-14] MEDS: ASCORBIC ACID 500 MG TABLET PO (09:20)
[2023-06-14] MEDS: GABAPENTIN 400 MG CAPSULE 1200 MG PO (09:20)
[2023-06-14] MEDS: VITAMIN B COMPLEX CAPSULE 1 CAP PO (09:20)
[2023-06-14] MEDS: DOXYCYCLINE HYCLATE 100 MG TABLET PO (09:20)
[2023-06-14] MEDS: FUROSEMIDE 20 MG TABLET PO (09:20)
[2023-06-14] MEDS: CYANOCOBALAMIN 1,000 MCG TABLET 1000 MCG PO (09:21)
[2023-06-14] MEDS: ZINC SULFATE 220 MG CAPSULE PO (09:21)
[2023-06-14] MEDS: DOXAZOSIN MESYLATE 2 MG TABLET PO (09:21)
[2023-06-14] MEDS: BRIMONIDINE TARTRATE 0.2% OP SOLN 5 ML BTL 1 DROP EACH EYE (09:21)
[2023-06-14] MEDS: MAGNESIUM OXIDE 400 MG TABLET PO (09:21)
[2023-06-14] MEDS: NEOMYCIN/POLYMYXIN/BACITRACIN OINTMENT 15 GM TUBE 1 APPLIC TOPICAL (09:21)
[2023-06-14] MEDS: TIMOLOL MALEATE 0.5% OP SOLN 5 ML BOTTLE 1 DROP EACH EYE (09:21)
[2023-06-14] MEDS: traMADol HCL (*CRX) 25 MG TABLET PO (09:23)
--- NOTE | 2023-06-14 10:53 | PM.DS ---
DS: Admitting Diagnosis Discharge Date 06/14/23 Admitting Diagnosis Closed intratrochanteric fracture of left hip UTI memory deficit urinary retention BPH with obstruction / lower urinary tract symptoms DS: Discharge Diagnosis Discharge Diagnosis (1) Closed intertrochanteric fracture of left hip: Qualifiers: Encounter type: initial encounter Fracture alignment: nondisplaced Qualified Code(s): S72.145A - Nondisplaced intertrochanteric fracture of left femur, initial encounter for closed fracture Code(s): S72.142A - Displaced intertrochanteric fracture of left femur, initial encounter for closed fracture Status: Acute (2) UTI (urinary tract infection): Qualifiers: Hematuria presence: without hematuria Urinary tract infection type: acute cystitis Qualified Code(s): N30.00 - Acute cystitis without hematuria Code(s): N39.0 - Urinary tract infection, site not specified Status: Acute (3) Memory deficit: Code(s): R41.3 - Other amnesia Status: Acute (4) Urinary retention: Code(s): R33.9 - Retention of urine, unspecified Status: Acute (5) BPH with obstruction/lower urinary tract symptoms: Onset Date: Unknown Code(s): N40.1 - Benign prostatic hyperplasia with lower urinary tract symptoms; N13.8 - Other obstructive and reflux uropathy Status: Chronic (6) Infection of penis: Code(s): N48.29 - Other inflammatory disorders of penis Status: Acute DS: Summary Hospital Course Reason for hospitalization: losed intratrochanteric fracture of left hip UTI memory deficit urinary retention BPH with obstruction / lower urinary tract symptoms Hospital Course: 05/23/23: This is a 73 year old that is being admitted to our swing bed after left sided orif after he had a fall.? Mr. Torrez has continued to improve although he has urinary retention with a urinary tract infection. Patient has has confusion and more than likley sun downers and he is only alert and orientented x2. Patient dressing to his left hip is dry and intact. Mr. Torrez has edema noted on the left side with minimal swellin go on the right . Staff from overnight cashier informs me he was up all night and was very hard to redirect,? As I speak with him he is questioning why he is here and why he seems confused. I did explain to him that he was confused and our goal is to get him home for therapy to work with him. 06/04/23: Patient is feeling well today.? Couple days ago he was placed on IV antibiotics due infection at the head of the penis with purulence drainage.? Wound cultures in process.? He is on vancomycin Rocephin after consultation with [facility].? Labs obtained today showed normal white blood cell count, stable mild anemia, renal function near baseline.? Nursing staff notes mobility improvement is significant over the last 1 week.? He still requires assistance with ambulation but is getting stronger 06/14/23: patient denies any new complaints today. He states he is feeling much stronger since starting the swing bed program. Plan was for him to discharge tomorrow however patient and family requesting that he be discharged today. He does have strong family support and home health has already been set up for him. Home health will be coming out on Thursday to see him in his home. He is stable for discharge at this time. He will need to follow up with Urology on Thursday as already scheduled. He will also need to follow up with his primary care physician within 1 week. he will need to finish 2 more days of antibiotic for his urinary tract infection. Final diagnosis: ORIF of left hip, weakness, UTI, urinary retention Status at Discharge Cognitive/behavioral status at discharge: alert oriented x3 Functional status at discharge: uses cane/walker Overall status at discharge: patient is progressing back to baseline Time Spent with Patient Time attestation: Total time spent pr
--- NOTE | 2023-06-14 11:50 | PC.NURSE ---
Discharge instructions reviewed with pt's son. All questions answered. Pt transported via wheelchair and assisted into private vehicle.
--- NOTE | 2023-06-15 09:41 | PC.NURSE ---
discharge call back attempted, no answer
--- NOTE | 2023-06-16 08:55 | PC.NURSE ---
Discharge call back attempted, no answer
--- NOTE | 2023-06-17 09:34 | PC.NURSE ---
Discharge call back attempted no answer
== END 2023-06-14 11:50 | disposition home or self-care (01) | DRG 560 ==
PROVIDERS: Nurse Practitioner; Nurse Practitioner Acute Care; Nurse Practitioner Family; Admitting Provider Internal Medicine; PCP Family Medicine Adolescent Medicine; Visit Provider Internal Medicine
DX: S72.142D Displaced intertrochanteric fracture of left femur, subsequent encounter for closed fracture with routine healing (principal); I48.20 Chronic atrial fibrillation, unspecified; T83.511A Infection and inflammatory reaction due to indwelling urethral catheter, initial encounter; T83.61XA Infection and inflammatory reaction due to implanted penile prosthesis, initial encounter; I50.9 Heart failure, unspecified; J45.30 Mild persistent asthma, uncomplicated; E78.5 Hyperlipidemia, unspecified; E11.42 Type 2 diabetes mellitus with diabetic polyneuropathy; K21.9 Gastro-esophageal reflux disease without esophagitis; N18.32 Chronic kidney disease, stage 3b; M19.90 Unspecified osteoarthritis, unspecified site; M81.0 Age-related osteoporosis without current pathological fracture; N40.1 Benign prostatic hyperplasia with lower urinary tract symptoms; R33.8 Other retention of urine; R41.3 Other amnesia; H40.1132 Primary open-angle glaucoma, bilateral, moderate stage; W19.XXXD Unspecified fall, subsequent encounter; Y95 Nosocomial condition; Z96.0 Presence of urogenital implants; Z86.711 Personal history of pulmonary embolism; Z79.82 Long term (current) use of aspirin
CPT/HCPCS: 36415; 71046; 80069; 80202; 81001; 82565; 82948; 83036; 83735; 85025; 87070; 87147; 87181; 92526; 92610; 97110; 97161; 97166; 97530; 97535; A9270; J0696; J3370

== ENCOUNTER 2023-07-31 15:53 | Outpatient (CLI) | payer MEDICARE, SELFPAY ==
[2023-07-31 16:26] LABS: Albumin Level 4.4 g/dL (3.5-5.1); Anion Gap 9 mmol/L (4-12); Blood Urea Nitrogen 30 mg/dL (9-20); Calcium 9.2 mg/dL (8.4-10.2); Carbon Dioxide 25 mmol/L (22-30); Chloride 109 mmol/L (98-107); Estimated Glomerular Filt Rate 37; Glucose 91 mg/dL (65-110); Phosphorus 3.6 mg/dL (2.5-4.5); Potassium 3.9 mmol/L (3.4-5.0); Sodium 143 mmol/L (137-145)
[2023-07-31 18:27] LABS: Creatinine Urine 88.9 mg/dL; Total Protein Urine Random 18 mg/dL
[2023-07-31 18:31] LABS: Parathyroid Intact 56.9 pg/mL (7.5-53.5)
[2023-07-31 18:37] LABS: Vitamin D 25 Hydroxy 59.4 ng/mL
== END 2023-07-31 15:54 | disposition home or self-care (01) ==
PROVIDERS: PCP Family Medicine Adolescent Medicine; Visit Provider Internal Medicine Nephrology
DX: N25.81 Secondary hyperparathyroidism of renal origin (principal); E55.9 Vitamin D deficiency, unspecified; N18.32 Chronic kidney disease, stage 3b
CPT/HCPCS: 36415; 80069; 82306; 82570; 83970; 84156

== ENCOUNTER 2023-10-07 11:26 | Outpatient (CLI) | payer MEDICARE, SELFPAY ==
--- NOTE | ~2023-10-07 | XR_ITS ---
3 VIEWS LUMBAR SPINE Ordering provider: Jaiden Sotelo MD History: . Worsening of chronic low back pain . Comparison: None. FINDINGS: VERTEBRAL BODIES:Postoperative changes in the lumbar spine and iliac bones with fixation of the right sacroiliac joint. Postoperative changes in both femoral neck and proximal femurs. No hardware failur e seen. Multilevel vertebroplasty in the lower thoracic area. SOFT TISSUES: Normal. IMPRESSION: No definite acute osseous abnormality visualized.. Postoperative changes in the spine, iliac bones and both femurs Reviewed, dictated and finalized at location A.
== END 2023-10-07 11:27 ==
PROVIDERS: PCP Family Medicine Adolescent Medicine; Visit Provider Family Medicine Adolescent Medicine
DX: M54.50 Low back pain, unspecified (principal); R29.898 Other symptoms and signs involving the musculoskeletal system
CPT/HCPCS: 72100

== ENCOUNTER 2023-10-27 11:32 | Outpatient (CLI) | payer MEDICARE, SELFPAY ==
--- NOTE | ~2023-10-27 | XR_ITS ---
EXAMINATION: XR lumbar spine bending only DATE: 10/27/2023 12:02 INDICATION: Lumbar instability. TECHNIQUE: Lateral flexion and extension views of the lumbar spine on 6 radiographs were obtained. COMPARISON: Lumbar spine radiographs 10/07/2023 FINDINGS: L5 is a transitional segment. There are changes of posterior fusion procedure from the thor acic spine to S1. There are changes of anterior fusion procedures at L3-L4 and L4-L5 with interbody d evices. There are changes of corpectomy and interbody spacer in upper lumbar spine. There is no motio n with flexion or extension. IMPRESSION: 1. No motion with flexion or extension. 2. Anterior and posterior fusion procedures in lumbar spine. Reviewed, dictated and finalized at location A.
== END 2023-10-27 11:33 | disposition home or self-care (01) ==
PROVIDERS: PCP Family Medicine Adolescent Medicine; Visit Provider Family Medicine Adolescent Medicine
DX: M53.2X6 Spinal instabilities, lumbar region (principal); Z98.1 Arthrodesis status
CPT/HCPCS: 72120

== ENCOUNTER 2023-11-26 13:39 | Outpatient (CLI) | payer MEDICARE, SELFPAY ==
--- NOTE | ~2023-11-26 | DEXA_ITS ---
Bone Density Report Name: APRIL ALMODOVAR Age: 73 Sex: Male Ethnicity: White Date of : 1950 Indication: screening for osteoporosis; height loss; prior fracture; Referring Provider: MT GARCIAS Study: Bone densitometry was performed. Exam Date: November 26, 2023 Accession number: [id number] Bone Density: Region BMD T-score Z-score Classification Total Forearm (Right) 0.458 -4.4 -2.9 1/3 Forearm (Right) 0.592 -4.3 -2.6 UD Forearm (Right) 0.349 -3.3 -1.8 World Health Organization criteria for BMD impression classify patients as: Normal (T-score at or above -1.0), Osteopenia (T-score between -1.0 and -2.5), or Osteoporosis (T-score at or below -2.5). Clinical Information Provided by Patient: Have had a previous hip or vertebral fracture Has had a low trauma fracture Has used the following medications: Vitamin D, Calcium Patient maximum height was 62 No regular weight bearing exercise Does not regularly consume dairy products Drinks caffeinated beverages Impression: The patient has established osteoporosis, based on the Right Third Radius T-score and the existence of a prior fracture. The patient has risk factors, including: previous fracture. Discussion: HIGH RISK OF FRACTURE. BONE DENSITY IS UNDESIRABLY LOW AT ONE OR MORE SKELETAL SITES, CONSISTENT WITH OSTEOPOROSIS. This patient's lowest T-score, in a patient who has previously fractured, meets the World Health Organization's (WHO) criteria for severe osteoporosis. In untreated patients, the risk of osteoporotic fracture increases approximately two-fold for each 1.0 SD decrease in T-score. Low bone density is not the only risk factor for fracture; also consider factors such as patient's age, frailty or poor health, risk of falling, risk of injury, previous osteoporotic fracture, family history of osteoporosis, cigarette smoking, low body weight, etc. Not everyone with low bone mineral density has osteoporosis; osteomalacia and other metabolic bone disorders should also be considered. Patients who have osteoporosis should be evaluated for specific diseases and conditions (secondary causes) that may cause or contribute to bone loss. The National Osteoporosis Foundation (NOF) recommends pharmacologic intervention for men with BMD at this level (a T-score of -2.5 or below). The patient should follow a healthful lifestyle (good nutrition with adequate calcium and vitamin D, and appropriate weight-bearing exercise). Follow-Up: Consider a repeat BMD and Vertebral Fracture Assessment (VFA) exam in 2 years or sooner if medically necessary, to reassess this patient's status. Reported by: NEEL on 11/26/2023 2:04:00 PM. Reviewed, dictated and finalized at location [facility]
== END 2023-11-26 13:40 | disposition home or self-care (01) ==
LOC: CHSIMG 13:40
PROVIDERS: PCP Family Medicine Adolescent Medicine; Visit Provider Family Medicine Adolescent Medicine
DX: M81.0 Age-related osteoporosis without current pathological fracture (principal)
CPT/HCPCS: 77080

== ENCOUNTER 2023-12-11 11:24 | Outpatient (CLI) | payer MEDICARE, SELFPAY ==
[2023-12-11 12:08] LABS: Albumin Level 4.5 g/dL (3.5-5.1); Anion Gap 9 mmol/L (4-12); Blood Urea Nitrogen 26 mg/dL (9-20); Calcium 9.1 mg/dL (8.4-10.2); Carbon Dioxide 25 mmol/L (22-30); Chloride 104 mmol/L (98-107); Estimated Glomerular Filt Rate 40; Glucose 145 mg/dL (65-110); Phosphorus 3.5 mg/dL (2.5-4.5); Potassium 4.1 mmol/L (3.4-5.0); Sodium 138 mmol/L (137-145)
[2023-12-11 12:08] LABS: Creatinine Urine 90.6 mg/dL; Total Protein Urine Random 45 mg/dL
== END 2023-12-11 11:25 | disposition home or self-care (01) ==
LOC: ANHLAB 11:27
PROVIDERS: PCP Family Medicine Adolescent Medicine; Visit Provider Internal Medicine Nephrology
DX: I12.9 Hypertensive chronic kidney disease with stage 1 through stage 4 chronic kidney disease, or unspecified chronic kidney disease (principal); N18.32 Chronic kidney disease, stage 3b
CPT/HCPCS: 36415; 80069; 82570; 84156

== ENCOUNTER 2024-02-11 10:46 | Outpatient (CLI) | payer MEDICARE, SELFPAY ==
--- NOTE | ~2024-02-11 | CT_ITS ---
CT head without contrast Indication: Loss of sensation COMPARISON: 04/17/2021 Technique: Serial scans were obtained through the brain without the administration of contrast. Dose reduction technique was used on this scan by utilizing automated exposure control and iterative recon struction technique. The dose-length product (DLP) was 674.51 mGy-cm. Findings: There is no evidence of intracranial hemorrhage, mass lesion, or acute infarct. The ventri cles and subarachnoid spaces are dilated, consistent with mild to moderate atrophy. Mild low attenuat ion regions are seen within the periventricular white matter bilaterally, likely representing changes from chronic microvascular ischemic disease. There is no evidence of edema, mass effect or midline shift. The visualized paranasal sinuses and mastoid air cells are clear. Impression: No intracranial hemorrhage, mass, or acute infarct. Atrophy and chronic white matter changes, as above. Reviewed, dictated and finalized at [facility]. H GRINDER Impression: No intracranial hemorrhage, mass, or acute infarct. Atrophy and chronic white matter changes, as above.
--- NOTE | ~2024-02-11 | CT_ITS ---
EXAMINATION: CT cervical spine wo con DATE: 02/11/2024 11:09 INDICATION: Progressive numbness in left leg and arm. TECHNIQUE: Computed tomography (CT) of the cervical spine was performed without intravenous contrast. Automated exposure control and iterative reconstruction technique were employed. The dose-length pro duct was 337.67 mGy-cm. COMPARISON: None FINDINGS: There is 2 mm anterolisthesis of C4 on C5. There is interbody fusion at C5-C6 with focal ky phosis. Vertebral body heights are normal. There is moderately decreased disc height at C2-C3, severe ly decreased disc height at C3-C4, mildly decreased disc height at C4-C5, and severely decreased disc height at C6-C7. The following disc levels are specifically discussed: C2-C3: There is mild bilateral uncovertebral joint osteoarthritis. There is severe bilateral facet faith int osteoarthritis. There is no neural foraminal stenosis. There is mild central canal stenosis. C3-C4: There is severe bilateral uncovertebral joint osteoarthritis. There is severe bilateral facet joint osteoarthritis. There is mild bilateral neural foraminal stenosis. There is mild central canal stenosis. C4-C5: There is mild bilateral uncovertebral joint osteoarthritis. There is severe bilateral facet faith int osteoarthritis. There is mild bilateral neural foraminal stenosis. There is mild central canal st enosis. C5-C6: There is mild right uncovertebral joint hypertrophy. There is mild left facet joint hypertroph y. There is mild bilateral neural foraminal stenosis. There is no central canal stenosis. C6-C7: There is severe bilateral uncovertebral joint osteoarthritis. There is severe bilateral facet joint osteoarthritis. There is mild bilateral neural foraminal stenosis. There is mild central canal stenosis. C7-T1: There is no uncovertebral joint osteoarthritis. There is severe bilateral facet joint osteoart hritis. There is mild bilateral neural foraminal stenosis. There is no central canal stenosis. IMPRESSION: 1. Severe cervical spondylosis. Reviewed, dictated and finalized at location A. 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
== END 2024-02-11 10:47 | disposition home or self-care (01) ==
LOC: MICIMG 10:47
PROVIDERS: PCP Family Medicine Adolescent Medicine; Visit Provider Family Medicine Adolescent Medicine
DX: R20.0 Anesthesia of skin (principal); M47.892 Other spondylosis, cervical region; R90.82 White matter disease, unspecified
CPT/HCPCS: 70450; 72125

== ENCOUNTER 2024-04-18 11:13 | Outpatient (CLI) | payer MEDICARE, SELFPAY ==
[2024-04-18 12:32] LABS: Alanine Aminotransferase 23 U/L (6-50); Albumin Level 4.4 g/dL (3.5-5.1); Alkaline Phosphatase 84 U/L (38-126); Anion Gap 14 mmol/L (4-12); Aspartate Amino Transferase 27 U/L (17-59); Bilirubin,Total 0.7 mg/dL (0.2-1.3); Blood Urea Nitrogen 35 mg/dL (9-20); Calcium 9.3 mg/dL (8.4-10.2); Carbon Dioxide 25 mmol/L (22-30); Chloride 102 mmol/L (98-107); Estimated Glomerular Filt Rate 36; Glucose 187 mg/dL (65-110); Potassium 3.9 mmol/L (3.4-5.0); Sodium 141 mmol/L (137-145)
[2024-04-18 12:34] LABS: Albumin Level 4.3 g/dL (3.5-5.1); Anion Gap 14 mmol/L (4-12); Blood Urea Nitrogen 35 mg/dL (9-20); Calcium 9.2 mg/dL (8.4-10.2); Carbon Dioxide 24 mmol/L (22-30); Chloride 102 mmol/L (98-107); Estimated Glomerular Filt Rate 35; Glucose 189 mg/dL (65-110); Phosphorus 3.9 mg/dL (2.5-4.5); Potassium 3.9 mmol/L (3.4-5.0); Sodium 140 mmol/L (137-145)
[2024-04-18 12:34] LABS: Total Protein Urine Random 18 mg/dL; Ur Ttl Prot Creatinine Ratio 0.27 mg/mg (0-0.20)
[2024-04-18 12:42] LABS: Parathyroid Intact 24.5 pg/mL (14.5-75.2)
--- OUTSIDE RECORDS SUMMARY | 2024-04-18 13:16 | XMS_ITS | Continuity of Care Document ---
Author Organization [facility] Address [address] [place] [address] [address] [place] [address] Phone Care Team Providers Care Punch Card Operator Name Role Phone [facility] Unavailable Unavail able James Cee Unavailable Unavailable Procedures Procedure Date Progressive Lens, Plastic Progressive Lens, Plastic Frames Deluxe Tax - Medical Visual Field Examination(s) Eye Exam, New Patient Refraction Advance Directives Directive Yes / No Effective Date File Name No Information Encounters Encounter Description Practice Location Reason(s) For Visit Diagnoses Date Provider Providers Copied on Encounter [facility], [address] [place] [address] [address], [place], [place], [id number], [place] tel:[phone] [facility] No Information 8-200 7 [facility] . [address], [id number], [place]. tel:[phone] Referring Provider: Juancarlos Vargas, [address] [place] [address] [address], [place], [address]. tel:[phone] sulting Provider: James Cee, [address] [place] [address], [place], [address]. tel:[phone] [facility], [id number] [place] [address] [address], [place], [place], [id number], [place] tel:[phone] [facility] No Information 0-200 7 [facility] . [address], [address], [place], [place], [id number], . tel:[phone] Referring Provider: Juancarlos Vargas, [address] [place] [address] [address], [place], [address]. tel:[phone] Provider: James Cee, [address] [place] [address], [place], [address]. tel:[phone] [facility], [address] [place], [place] [address], [place], [place], [id number], tel:[phone] [facility] No Information May-3 0-200 7 [place] OD Juancarlos. [address] [place] [address] , [facility] [address], [place], [address], [place]. tel:[phone] Referring Provider: Juancarlos Vargas, [address] [place] [address] [address], [place], [place], [facility] tel:[phone] [facility], [address] [place], [place] [address], [place], [place], [id number], tel:[phone] [facility] No Information May-0 9-200 7 [place] OD Juancarlos. [address] [place] [address] , [address], [place], [address], [place]. tel:[phone] Family History Family Member Type Diagnosis Age At Onset No Information Payers Payer name Insurance type Covered alliance party ID Authoriza tion(s) No Information Social History [...]
--- OUTSIDE RECORDS SUMMARY | 2024-04-18 13:16 | XMS_ITS | Encounter Summary ---
Author Organization [facility] Address [address] [place] [address] Care Team Providers Care Director Of Global Talent Name Role Phone Jaiden Sotelo MD Primary Care Provider + Encounter Details Date Type Department Care Team (Late st Contact Info) Description 08/16/2018 [facility] Unknown, Provider Social History Tobacco Use Types Packs/Day Years Used Date Smoking Tobacco: Never Smokeless Tobacco: Never Alcohol Use Standard Drinks/Week Comments Yes 2 (1 standard drink = 0.6 oz pur e alcohol) week Sex and Gender Information Value Date Recorded Sex Assigned at Not on file Gender Identity Not on file Sexual Orientation Not on file documented as of this encounter Functional Status Functional Status Response Date of Assess ment Is person deaf or have serious hearing difficult y? No 07/02/2018 Is person blind or have serious difficulty seein g? No 07/02/2018 Does person have serious dif ficulty walking/climbing stairs? No 07/02/2018 Does person have difficulty dressing/bathing? No 07/02/2018 Does person have difficulty doing errands alone? No 07/02/2018 Cognitive Status Response Date of Assessm ent Does person have difficulty concentrating/remembering/making decisions? No 07/02/2018 documented as of this encounter Plan of Treatment Not on file documented as of this encounter Visit Diagnoses Not on filedocumented in this encounter Additional Health Concerns Infection Onset Date Last Indicated Resolved Time COVID-19 Under Investigation 11/01/2019 11/01/2019 11/02/2019 7:12 PM CDT documented as of this encounter Care Teams Director Of Global Talent Relationship Specialty Start Date End Date Jaiden Sotelo MD [address] [address] PCP - General Family Medicine 10/01/16 documented as of this encounter
--- OUTSIDE RECORDS SUMMARY | 2024-04-18 13:16 | XMS_ITS | Encounter Summary ---
Author Organization [facility] Address [address] [place] [address] Care Team Providers Care Senior Support Engineer Name Role Phone Jaiden Sotelo MD Primary Care Provider + Encounter Details Date Type Department Care Team (Late st Contact Info) Description 07/22/2018 [facility] Unknown, [...] documented as of this encounter Care Teams Senior Support Engineer Relationship Specialty Start Date End Date Jaiden Sotelo MD [address] [address] PCP - General Family Medicine 10/01/16 documented as of this encounter
--- OUTSIDE RECORDS SUMMARY | 2024-04-18 13:16 | XMS_ITS | Referral Summary ---
Author Organization [facility] Address [address] [place] [address] Care Team Providers Care Customer Support Agent Name Role Phone Jaiden Sotelo MD Primary Care Provider + Source Comments [facility],non-owned Affiliates and Associated Physician Practices is amultiple site organization consisting of ambulatory clinics and hospital sitesin [place], [place], [place] and [place]. This disclosure is being madepursuant to the Care Everywhere program and may not contain all information available regarding this patient. Last updated 17.[facility] Allergies Active Allergy Reactions Criticality Noted Date Comments Codeine Other Low 04/13/2018 Really bad constipation Medications * Be aware that medications may not be up to date on this document. Alwaysverify current medications with the patient. Medication Sig Dispensed Refills Start Date End Date Status doxazosin (CARDURA) 2 MG tablet Take 2 mg by mouth once daily Active gabapentin (NEURONTIN) 600 MG tablet TAKE 2 TABLETS(1200 MG) BY MOUTH THREE TIMES DAILY 12/24/2015 Active glimepiride (AMARYL) 2 MG tablet Take 2 mg by mouth daily with breakfast Active omeprazole (PRILOSEC) 20 MG capsule Take 20 mg by mouth daily before breakfast Active clobetasol (TEMOVATE) 0.05 % solution Apply to scalp, up to twice daily as needed 10/27/2014 Active PROAIR HFA 108 (90 BASE) MCG/ACT inhaler Inhale 2 puffs by mouth every 6 hours as needed 03/30/2018 Active ascorbic acid (VITAMIN C) 250 MG tablet Take 250 mg by mouth once daily Active B Complex Vitamins (VITAMIN B COMPLEX PO) Take 1 capsule by mouth once daily Active [id number]-[id number] INC PO Take 1 tablet by mouth Active hydroCHLOROthiazide (HYDRODIURIL) 25 MG tablet Take 25 mg by mouth once daily 05/16/2018 Active atorvastatin (LIPITOR) 20 MG tablet Take 20 mg by mouth at bedtime Active calcium carbonate (TUMS) 500 MG chew tablet Take 1 tablet by mouth every 4 hours as needed for Heartburn 11/30/2019 Active Additional Information Patient not taking.Reported on 09/16/2021 predniSONE (DELTASONE) 10 MG tablet Take 1.5 tablets by mouth once daily 12/14/2019 Active Additional Information Patient not taking.Reported on 09/16/2021 docusate sodium (COLACE) 100 MG capsule Take 1 capsule by mouth 2 times daily 11/30/2019 Active Additional Information Patient not taking.Reported on 09/16/2021 methocarbamol (ROBAXIN) 750 MG tablet Take 1 tablet by mouth 2 times daily as needed for Muscle Spasms 60 tablet 1 11/30/2019 Active Additional Information Patient not taking.Reported on 09/16/2021 aspirin (ASPIRIN) 81 MG chew tablet Take 81 mg by mouth once daily 04/18/2020 Active busPIRone (BUSPAR) 10 MG tablet 05/13/2020 Active ELIQUIS 5 MG tablet 05/21/2020 Activ e melatonin 5 MG tablet Take 10 mg by mouth once daily as needed Active metFORMIN (GLUCOPHAGE) 1000 MG tablet 05/14/2020 Active tiZANidine (ZANAFLEX) 4 MG tablet 06/02/2020 Active traZODone (DESYREL) 50 MG tablet 05/14/2020 Active diphenhydramine (BENADRYL) 25mg/50ml SOLN ivpb 25 mg by Intravenous route Active BRIMONIDINE 0.15%-DORZOLAMIDE 2% PF EYE DROPS (COMPOUNDED) 1 drop Active furosemide (LASIX) 40 MG tablet Take 40 mg by mouth once daily Active lidocaine (LIDODERM) 5 % patch Apply 1 patch to skin once daily Active B Vocboxv-W-Ndvqu Acid (RENAL VITAMIN) 0.8 MG TABS Active metFORMIN ER 24hr (GLUCOPHAGE XR) 500 MG tablet Take 1,000 mg by mouth 2 times daily 08/13/2020 Active Active Problems Problem Noted Date Diagnosed Date Shortness of breath 11/22/2019 Chronic midline low back pain 10/28/2019 Abdominal pain 10/27/2019 Preop examination 07/02/2018 Spine deformity, acquired Immunizations Name Administration Dates Next Due INFLUENZA VACCINE 10/15/2018 INFLUENZA VACCINE, HIGH-DOSE , QUADR. (FLUZONE HIGH-DOSE QUADRIVALENT; 65Y+), 0.7 ML (HD-IIV4) 11/16/2019 Zoster Hzv Vacc Recombinant Inj Im 10/18/2018 Social History Tobacco Use Types Packs/Day Years Used Date Smoking Tobacco: Never Smokeless Tobacco: Never Tobacco Cessation:Counseling Given: No Alcohol Use Standard Drinks/Week Comments Not Currently [...] on file Sexual Orientation Not on file Last Filed Vital Signs Vital Sign Reading Time Taken Comments Blood Pressure 125/77 09/16/2021 1:43 PM CDT Pulse 69 09/16/2021 1:43 PM CDT Temperature 36.4 C (97.5 F) 11/19/2020 11:35 AM CDT Respiratory Rate 14 01/16/2020 8:59 AM [employer] ACCESS DEVELOPER Oxygen Saturation 100% 09/16/2021 1:43 PM CDT Inhaled Oxygen Concentration 21% 12/10/2019 1 :16 PM CDT Weight 73.5 kg (162 lb) 11/19/2020 11:35 AM CDT Height 177.8 cm (5' 10 ) 11/19/2020 11:35 AM CDT Body Mass Index 23.24 11/19/2020 11:35 AM CDT Functional Status Functional Status Response Date of Assess ment Is person deaf or have serious hearing difficult y? No 11/30/2019 Is person blind or have serious difficulty seein g? No 11/30/2019 Does person have serious dif ficulty walking/climbing stairs? Yes 11/30/2019 Does person have difficulty dressing/bathing? Ye s 11/30/2019 Does person have difficulty doing errands alone? Yes 11/30/2019 Cognitive Status Response Date of Assessm ent Does person have difficulty concentrating/remembering/making decisions? No 11/30/2019 Plan of Treatment Not on file Medical Devices Implanted Type Area Business Professor Device Identifier Shelf Expiration Date Model / Serial / Lot Penile Implant Other (Type not listed) Penis Coloplast Co TITAN / / Graft Bone Canc 1-4mm 15ml Frzdr Crsh Implanted:Qty: 1 on 10/29/2016 by Yuniel Fuchs MD at [facility] Spine Lumbar Allosource 05/03/2020 [id number] / / [id number] Sub Bngf Progenix Dbm Bvn Clgn Ptty 10ml Implanted:Qty: 1 on 10/29/2016 by Yuniel Fuchs MD at [facility] Spine Lumbar Medtronic Sofamor Danek Inc 04/14/2018 [id number] / / [id number] Locking Nuts Implanted:Qty: 6 on 10/29/2016 by Yuniel Fuchs MD at [facility] Spine Lumbar [id number] / / Corelink Connectors Implanted:Qty: 6 on 10/29/2016 at [facility] Spine Lumbar [id number] / / Corelink 6.5 X 55 Screw Implanted:Qty: 4 on 10/29/2016 by Yuniel Fuchs MD at [facility] Spine Lumbar [id number] / / Corelink 6.5 X 50 Screw Implanted:Qty: 2 on 10/29/2016 by Yuniel Fuchs MD at [facility] Spine Lumbar [id number] / / Corelink 65mm Khoi Implanted:Qty: 2 on 10/29/2016 by Yuniel Fuchs MD at [facility] Spine Lumbar [id number] / / Corelink 22mm Crosslink Implanted:Qty: 1 on 10/29/2016 by Yuniel Fuchs MD at [facility] Spine Lumbar [id number] / / Implt Dual Lead Sacroiliac 11.5 X 55 Implanted:Qty: 1 on 07/02/2018 by Yuniel Fuchs MD at [facility] Right: Spine [employer]c [id number] / / Implt Dual Lead Sacroiliac 11.5 X 45 Implanted:Qty: 1 on 07/02/2018 by Yuniel Fuchs MD at [facility] Right: Spine [employer] [id number] / / Graft Bone Alfs Dbm 10ml Gel Implanted:Qty: 1 on 07/02/2018 by Yuniel Fuchs MD at [facility] Right: Spine Allosource 07/25/2020 [id number] / / [id number] Cmnt Bone Kyphon Xpede Spnl Mxr Implanted:Qty: 1 on 11/11/2019 by Grzegorz Mi MD at [facility] N/A: Spine Kyphon Inc 04/22/2022 [id number] / / [id number] Cmnt Bone Hv-R Kphx Mxr Grad Mrk Dspns Implanted:Qty: 1 on 11/11/2019 by Grzegorz Mi MD at [facility] N/A: Spine Kyphon Inc 04/22/2022 [id number] / / [id number] Cmnt Bone Kyphon Xpede Spnl Mxr Implanted:Qty: 1 on 11/11/2019 by Grzegorz Mi MD at [facility] N/A: Spine Kyphon Inc 12/23/2021 [id number] / / [id number] Cmnt Bone Kyphon Xpede Spnl Mxr Implanted:Qty: 1 on 11/11/2019 by Grzegorz Mi MD at [facility] N/A: Spine Kyphon Inc 05/23/2022 [id number] / / [id number] Medtronic Interbody Fusion Device Implanted:Qty: 1 on 11/11/2019 by Grzegorz Mi MD at [facility] N/A: Spine 07/23/2025 [id number] / / [id number] Graft Bone Grftn Dbm Aspt 5x2.5cm Post - [id number] Implanted:Qty: 1 on 11/11/2019 by Grzegorz Mi MD at [facility] N/A: Spine Osteotech Inc 07/12/2022 [id number] / [id number] / Graft Bone Grftn Dbm Aspt 5x2.5cm Post - [id number] Implanted:Qty: 1 on 11/11/2019 by Grzegorz Mi MD at [facility] N/A: Spine Osteotech Inc 05/30/2022 [id number] / [id number] / Interbody Fusion Device Implanted:Qty: 1 on 11/11/2019 by Grzegorz Mi MD at [facility] N/A: Spine Medtronic Neurological 04/28/2025 [id number] / / [id number] Graft Bone Grftn Dbm Aspt 5x2.5cm Post - [id number] Implanted:Qty: 1 on 11/11/2019 by Grzegorz Mi MD at [facility] N/A: Spine Osteotech Inc 07/12/2022 [id number] / [id number] / Screw Set .25in Std 32 Thrd Spne Cap Implanted:Qty: 8 on 11/11/2019 by Grzegorz Mi MD at [facility] N/A: Spine Medtronic Sofamor Danek Inc [id number] / / Screw 9.5mm 90mm Ma Spne Solera Cd Hzn Implanted:Qty: 2 on 11/11/2019 by Grzegorz Mi MD at [facility] N/A: Spine Medtronic Sofamor Danek Inc [id number] / / Screw Set Ti Spnl Brk Off Cd Hzn Nonster Implanted:Qty: 18 on 11/11/2019 by Grzegorz Mi MD at [facility] N/A: Spine Medtronic Sofamor Danek Inc [id number] / / Khoi Spnl Rd 500mm 6mm Str Ccm Ln Implanted:Qty: 2 on 11/11/2019 by Grzegorz Mi MD at [facility] N/A: Spine Medtronic Sofamor Danek Inc [id number] / / Khoi Spnl 500mm 5.5mm Cd Hzn Str Ti Ln Cp Implanted:Qty: 1 on 11/11/2019 by Grzegorz Mi MD at [facility] N/A: Spine Medtronic Inc [id number] / / Laminal Connector Screw Implanted:Qty: 4 on 11/11/2019 by Grzegorz Mi MD at [facility] N/A: Spine Medtronic Inc [id number] / / 6.5 X 45 Screw Implanted:Qty: 2 on 11/11/2019 by Grzegorz Mi MD at [facility] N/A: Spine Medtronic Inc [id number] / / 7.5 X 45 Screw Implanted:Qty: 4 on 11/11/2019 by Grzegorz Mi MD at [facility] N/A: Spine Medtronic Inc [id number] / / 7.5 X 50 Screw Implanted:Qty: 4 on 11/11/2019 by Grzegorz Mi MD at [facility] N/A: Spine Medtronic Inc [id number] / / 7.5 X 55 Screw Implanted:Qty: 4 on 11/11/2019 by Grzegorz Mi MD at [facility] N/A: Spine Medtronic Inc [id number] / / Inner Trs Adapter Implanted:Qty: 16 on 11/11/2019 by Grzegorz Mi MD at [facility] N/A: Spine Medtronic Inc [id number] / / 6.5 X 50 Screws Implanted:Qty: 2 on 11/11/2019 by Grzegorz Mi MD at [facility] N/A: Spine Medtronic Inc [id number] / / Graft Bone Grftn Dbm 5cc Ptty Jr - [id number] Implanted:Qty: 1 on 11/21/2019 by Grzegorz Mi MD at [facility] N/A: Spine Osteotech Inc 08/02/2022 [id number] / [id number] / Stpl Bone 2 Hl Lopro Top Ld Intchn Ti Implanted:Qty: 1 on 11/21/2019 by Grzegorz Mi MD at [facility] N/A: Spine Medtronic Sofamor Danek Inc [id number] / / Stpl Bone 2 Hl Lopro Top Ld Intchn Ti Implanted:Qty: 1 on 11/21/2019 by Grzegorz Mi MD at [facility] N/A: Spine Medtronic Sofamor Danek Inc [id number] / / Screw 5.5mm 35mm Spne Thor Ant Slf-Tap Implanted:Qty: 4 on 11/21/2019 by Grzegorz Mi MD at [facility] N/A: Spine Medtronic Sofamor Danek Inc [id number] / / 8cm Plate Implanted:Qty: 1 on 11/21/2019 by Grzegorz Mi MD at [facility] N/A: Spine Medtronic Sofamor Danek Spine [id number] / / Nut Lck Vntg Ant Thorlmbr Spne Ti Screw Implanted:Qty: 2 on 11/21/2019 by Grzegorz Mi MD at [facility] N/A: Spine Medtronic Sofamor Danek Inc [id number] / / 20mm E Stratosphere Cage Implanted:Qty: 1 on 11/21/2019 by Grzegorz Mi MD at [facility] N/A: Spine Medtronic Sofamor Danek Inc [id number] / / Advance Directives Documents on File Type Date Recorded Patient Padder Cushion Expl anation Adv Directive/Living Will/POA 12/04/2019 2:33 PM * Full Code (Latest Code Status on File) Date Activated Date Inactivated Comments 04/04/2020 6:51 PM 04/18/2020 3:16 PM * Full Code Date Activated Date Inactivated Comments 11/11/2019 9:39 PM 11/30/2019 4:41 PM * Full Code Date Activated Date Inactivated Comments 10/29/2019 7:29 AM 11/11/2019 9:39 PM * Full Code Date Activated Date Inactivated Comments 07/02/2018 4:50 PM 07/03/2018 12:29 PM * Full Code Date Activated Date Inactivated Comments 10/29/2016 4:59 PM 10/31/2016 4:30 PM Care Teams Customer Support Agent Relationship Specialty Start Date End Date Jaiden Sotelo MD [address] [address] PCP - General Family Medicine 10/01/16
--- OUTSIDE RECORDS SUMMARY | 2024-04-18 13:16 | XMS_ITS | Encounter Summary ---
Author Organization [facility] Health Address [address] [address] Care Team Providers Care Research Lab Assistant Name Role Phone Jaiden Sotelo MD Primary Care Provider + Encounter Details Date Type Department Care Team (Late st Contact Info) Description 09/16/2018 [facility] Unknown, [...] documented as of this encounter Care Teams Research Lab Assistant Relationship Specialty Start Date End Date Jaiden Sotelo MD [address] [address] PCP - General Family Medicine 10/01/16 documented as of this encounter
--- OUTSIDE RECORDS SUMMARY | 2024-04-18 13:16 | XMS_ITS | Encounter Summary ---
Author Organization [facility] Address [address] [place] [address] Care Team Providers Care Book Packer Name Role Phone Jaiden Sotelo MD Primary Care Provider + Encounter Details Date Type Department Care Team (Latest Contact Info) Description 03/30/2020 11:28 AM PUBLIC ADDRESS SERVICER Hospital Encounter [address] [address] Iris Wu MD [address] [place] [address] [address] [place] [id number] Select Direct Social History Tobacco Use Types [...] on file Sexual Orientation Not on file COVID-19 Exposure Response Date Recorded In the last 10 days, have yo u been in contact with someone who was [...] person have difficulty concentrating/remembering/making decisions? No 11/30/2019 documented as of this encounter Plan of Treatment Not on file documented as of this encounter Visit Diagnoses Not on filedocumented in this encounter Care Teams Book Packer Relationship Specialty Start Date End Date Jaiden Sotelo MD [address] [address] PCP - General Family Medicine 10/01/16 documented as of this encounter
--- OUTSIDE RECORDS SUMMARY | 2024-04-18 13:16 | XMS_ITS | Encounter Summary ---
Author Organization [facility] Health Address [address] [place] [address] Care Team Providers Care Radio Station Operator Name Role Phone Jaiden Sotelo MD Primary Care Provider + Encounter Details Date Type Department Care Team (Late st Contact Info) Description 11/16/2018 [facility] Unknown, [...] documented as of this encounter Care Teams Radio Station Operator Relationship Specialty Start Date End Date Jaiden Sotelo MD [address] [address] PCP - General Family Medicine 10/01/16 documented as of this encounter
--- OUTSIDE RECORDS SUMMARY | 2024-04-18 13:16 | XMS_ITS | Encounter Summary ---
Author Organization [facility] Health Address [address] [place] [address] Care Team Providers Care Joint Supervisor Name Role Phone Jaiden Sotelo MD Primary Care Provider + Encounter Details Date Type Department Care Team (Late st Contact Info) Description 10/14/2018 [facility] Unknown, [...] documented as of this encounter Care Teams Joint Supervisor Relationship Specialty Start Date End Date Jaiden Sotelo MD [address] [address] PCP - General Family Medicine 10/01/16 documented as of this encounter
--- OUTSIDE RECORDS SUMMARY | 2024-04-18 13:17 | XMS_ITS | Encounter Summary ---
Author Organization [facility] Health Address [address] [place] [address] Care Team Providers Care Tire Finisher Name Role Phone Jaiden Sotelo MD Primary Care Provider + Encounter Details Date Type Department Care Team (Late st Contact Info) Description 01/12/2017 [facility] Unknown, [...] or have serious hearing difficult y? No 10/29/2016 Is person blind or have serious difficulty seein g? No 10/29/2016 Does person have serious dif ficulty walking/climbing stairs? Yes 10/29/2016 Does person have difficulty dressing/bathing? No 10/29/2016 Does person have difficulty doing errands alone? No 10/29/2016 Cognitive Status Response Date of Assessm ent Does person have difficulty concentrating/remembering/making decisions? No 10/29/2016 documented as of this encounter Plan of Treatment Not on file documented as of this encounter Visit Diagnoses Not on filedocumented in this encounter Additional Health Concerns Infection Onset Date Last Indicated Resolved Time COVID-19 Under Investigation 11/01/2019 11/01/2019 11/02/2019 7:12 PM CDT documented as of this encounter Care Teams Tire Finisher Relationship Specialty Start Date End Date Jaiden Sotelo MD [address] [address] PCP - General Family Medicine 10/01/16 documented as of this encounter
--- OUTSIDE RECORDS SUMMARY | 2024-04-18 13:17 | XMS_ITS | Clinical Summary ---
Author Organization [facility] Address [address], [place] [address] Phone Care Team Providers Care Psychotherapist Counselor Name Role Phone Jaiden Mendez MD Primary Care Provider [phone] Allergies Active Allergy Reactions Criticality Noted Date Comments Codeine Other (see comments) Low 04/13/2018 Really bad constipation Really bad constipation Medications Medication Sig Dispensed Refills Start Date End Date Status furosemide (LASIX) 20 MG tablet Take 1 tablet (20 mg total) by mouth 2 (two) times a day 60 tablet 11 03/13/2021 Active atorvastatin (LIPITOR) 20 MG tablet Take 20 mg by mouth 1 (one) time each day 02/11/2021 Active brimonidine (ALPHAGAN) 0.15 % ophthalmic solution Administer 1 drop into both eyes 2 (two) times a day 02/18/2021 Active diclofenac (VOLTAREN) 75 MG EC tablet Take 75 mg by mouth 2 (two) times a day 01/03/2021 Active doxazosin (CARDURA) 2 MG tablet Take 2 mg by mouth 1 (one) time each day 02/11/2021 Active gabapentin (NEURONTIN) 600 MG tablet Take 1,200 mg by mouth 2 (two) times a day 02/18/2021 Active glimepiride (AMARYL) 2 MG tablet Take 2 mg by mouth 1 (one) time each day 02/11/2021 Active metFORMIN XR 500 MG 24 hr tablet Take 1,000 mg by mouth 2 (two) times a day 02/28/2021 Active predniSONE (DELTASONE) 10 MG tablet 02/15/2021 Active tamsulosin (FLOMAX) 0.4 MG 24 hr capsule Take 0.8 mg by mouth every night 02/28/2021 Active traZODone (DESYREL) 50 MG tablet Take 50 mg by mouth every night 12/21/2020 Active clopidogrel (PLAVIX) 75 MG tablet Take 75 mg by mouth 1 (one) time each day 08/06/2021 Active traMADol (ULTRAM) 50 MG tablet Take 50 mg by mouth every 6 (six) hours if needed for pain 06/10/2021 Active Brimonidine-Dorzola mide 0.15-2 % solution Administer 1 drop into affected eye(s) Active Active Problems Problem Noted Date Diagnosed Date Acquired deformity of spine 03/24/2021 Debility 04/05/2020 Neuropathy 04/05/2020 Shortness of breath 11/22/2019 Chronic low back pain 10/28/2019 Abdominal pain 10/27/2019 Epiretinal membrane of right eye 04/06/2019 Punctate keratitis of left eye 01/14/2019 Mechanical complication of intraocular lens 10/24 Overview (03/24/2021): Last Assessment & Plan: OS VF worse - will recheck. Sulcus IOL may be causing chafe - has moments of floaters that clear up - slightly more TM pigmentation. IOP OS higher. Poor surgical candidate from diabetes but if vision is worsening and IOP not controlled may need Ahmed (then attempt optic capture IOL vs leaving as is). 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 Recommend IOP in mid to low teens - pt is hesitant to do surgery. If IOP in 20's recommend ahmed and IOL repos (try optic capture). Try agan BID OS to lower IOP. F/U Optometry Q4 mo IOP checks and yearly HVF Peripheral chorioretinal scar 11/29/2014 Immunizations Name Administration Dates Next Due Influenza, Quadrivalent 11/16/2019 Influenza, Unspecified 10/15/2018 Sars-cov-2, Unspecified 04/30/2021,11/28/2020,,05/11/2020 Zoster Recombinant 10/18/2018 Family History Medical History Relation Comments Alzheimer's disease Father Glaucoma Father Alzheimer's disease Mother Kidney disease Neg Hx Relation Status Comments Father Mother Social History Tobacco Use Types Packs/Day Years Used Date Smoking Tobacco: Never Smokeless Tobacco: Never Alcohol Use Standard Drinks/Week Comments Not Currently 0 (1 standard drink = 0.6 oz pur e alcohol) Sex and Gender Information Value Date Recorded Sex Assigned at Not on file Gender Identity Not on file Sexual Orientation Not on file Last Filed Vital Signs Vital Sign Reading Time Taken Comments Blood Pressure 128/74 09/04/2021 10:40 AM CDT Pulse - - Temperature 35.8 C (96.5 F) 09/04/2021 10:40 AM CDT Respiratory Rate 18 09/04/2021 10:40 AM CDT Oxygen Saturation - - Inhaled Oxygen Concentration - - Weight 82.8 kg (182 lb 9.6 oz) 09/04/2021 10:40 AM CDT Height 182.9 cm (6') 09/04/2021 10:40 AM CDT Body Mass Index 24.77 09/04/2021 10:40 AM CDT Plan of Treatment Health Maintenance Due Date Last Done Comments Pneumococcal PPSV23/PCV13 65 + Years / Low and Medium Risk (1 of 4 - PCV) 2014 Influenza Vaccine (#1) 2023 10/15/2018 Care Teams Psychotherapist Counselor Relationship Specialty Start Date End Date Jaidne Mendez MD [address] [address] PCP - General Family Medicine 03/12/21
--- OUTSIDE RECORDS SUMMARY | 2024-04-18 13:17 | XMS_ITS | Clinical Summary ---
Author Organization [facility] Address [address] [place] [address] Care Team Providers Care Golf Ball Cover Treater Name Role Phone Jaiden Sotelo MD Primary Care Provider + Source Comments [facility]non-owned Affiliates and Associated Physician Practices is amultiple site organization consisting of ambulatory clinics and hospital sitesin [place], [place], [place] and [place]. This disclosure is being madepursuant to the Care Everywhere program and may not contain all information available regarding this patient. Last updated 17.[facility] Allergies Active Allergy Reactions Criticality Noted Date [...] 1 capsule by mouth once daily Active [id number]-[id number] INC PO Take 1 tablet by mouth [...] patch to skin once daily Active B Iezwirm-F-Lrwwl Acid (RENAL VITAMIN) 0.8 MG TABS Active [...] Zoster Hzv Vacc Recombinant Inj Im 10/18/2018 Family History Medical History Relation Name Comments Arthritis - Rheumatoid Father CAD (Coronary Artery Disease) Father Heart Failure Father Hypertension Father Arthritis - Rheumatoid Mother Hypertension Mother Relation Name Status Comments Father Mother Social History Tobacco [...] CDT Respiratory Rate 14 01/16/2020 8:59 AM CIAIO LUMITE INJECTOR Oxygen Saturation 100% 09/16/2021 1:43 PM CDT Inhaled Oxygen Concentration 21% 12/10/2019 1 :16 PM CDT Weight 73.5 kg (162 lb) 11/19/2020 11:35 AM CDT Height 177.8 cm (5' 10 ) 11/19/2020 11:35 AM CDT Body Mass Index 23.24 11/19/2020 11:35 AM CDT Plan of Treatment Health Maintenance Due Date Last Done Comments KISHA (AGES 45-75) - COL ON CA SCREENING 1950 COLON MONITORING 1950 COLONOSCOPY - COLON CA SCREENING 1949 CT COLONOGRAPHY - COLON CA SCREENING 1950 Colorectal Cancer Screening 1950 FIT - COLON CA SCREENING 1949 FLEX SIG - COLON CA SCREENING 1949 HEPATITIS C SCREENING 01/15/1967 DTAP/TDAP/TD VACCINES (1 - Tdap) 01/20/1968 PNEUMOCOCCAL VACCINE 50+ (1 of 1 - PCV) 1999 ZOSTER VACCINE (2 of 2) 12/13/2018 10/18/2018 COVID-19 VACCINE (1 - 2023-2 5 season) 2023 INFLUENZA VACCINE (#1) 2023 0, 10/15/2018 Respiratory Syncytial Virus (RSV) Vaccine Pt: or over 60 yrs (1 - 1-dose 75+ series) 01/20/2024 DEPRESSION SCREENING 02/24/2024 MEDICARE AWV CALENDAR YEAR 2024 HEPATITIS B VACCINE Aged Out No longe r eligible based on patient's age to complete this topic HIB VACCINE Aged Out No longer eligi ble based on patient's age to complete this topic HPV VACCINE Aged Out No longer eligi ble based on patient's age to complete this topic MENINGOCOCCAL (Group B) VACCINE Aged Out No longer eligible b ased on patient's age to complete this topic MENINGOCOCCAL VACCINE Aged Out No gurvinder kamala eligible based on patient's age to complete this topic Medical Devices Implanted Type Area Middle Card Tender Device Identifier Shelf Expiration Date Model / Serial / Lot Penile Implant Other (Type not listed) Penis Coloplast Co TITAN / / Graft Bone Canc 1-4mm 15ml Frzdr Crsh Implanted:Qty: 1 on 10/29/2016 by Yuniel Fuchs MD at [facility] Spine Lumbar Allosource 05/03/2020 [id number] / / [id number] Sub Bngf Progenix Dbm Bvn Clgn Ptty 10ml Implanted:Qty: 1 on 10/29/2016 by Yuniel Fuchs MD at [facility] Spine Lumbar Medtronic Sofamor Danek Inc 04/14/2018 [id number] / / [id number] Locking Nuts Implanted:Qty: 6 on 10/29/2016 by Yuniel Fuchs MD at [facility] Spine Lumbar [id number] / / Corelink Connectors Implanted:Qty: 6 on 10/29/2016 at [facility] Spine Lumbar [id number] / / Corelink 6.5 X 55 Screw Implanted:Qty: 4 on 10/29/2016 by Yuniel Fuchs MD at [facility] Spine Lumbar [id number] / / Corelink 6.5 X 50 Screw Implanted:Qty: 2 on 10/29/2016 by Yuniel Fuchs MD at [facility] Spine Lumbar 70071.50 / / Corelink 65mm Khoi Implanted:Qty: 2 on 10/29/2016 by Yuniel Fuchs MD at [facility] Spine Lumbar [id number] / / Corelink 22mm Crosslink Implanted:Qty: 1 on 10/29/2016 by Yuniel Fuchs MD at [facility] Spine Lumbar [id number] / / Implt Dual Lead Sacroiliac 11.5 X 55 Implanted:Qty: 1 on 07/02/2018 by Yuniel Fuchs MD at [facility] Right: Spine [employer] [id number] / / Implt Dual Lead Sacroiliac 11.5 X 45 Implanted:Qty: 1 on 07/02/2018 by Yuniel Fuchs MD at [facility] Right: Spine [employer] [id number] / / Graft Bone Alfs Dbm 10ml Gel Implanted:Qty: 1 on 07/02/2018 by Yuniel Fuchs MD at [facility] Right: Spine Allosource 07/25/2020 [id number] / / [id number] Cmnt Bone Kyphon Xpede Spnl Mxr Implanted:Qty: 1 on 11/11/2019 by Grzegorz Mi MD at [facility] N/A: Spine Kyphon Inc 04/22/2022 [id number] / / [id number] Cmnt Bone Hv-R Kphx Mxr Grad Mrk Dspns Implanted:Qty: 1 on 11/11/2019 by Grzegorz Mi MD at [facility] N/A: Spine Kyphon Inc 04/22/2022 [id number] / / [id number] Cmnt Bone Kyphon Xpede Spnl Mxr Implanted:Qty: 1 on 11/11/2019 by Grzegorz Mi MD at [facility] N/A: Spine Kyphon Inc 12/23/2021 [id number] / / [id number] Cmnt Bone Kyphon Xpede Spnl Mxr Implanted:Qty: 1 on 11/11/2019 by Grzegorz Mi MD at [facility] N/A: Spine Kyphon Inc 05/23/2022 [id number] / / [id number] Medtronic Interbody Fusion Device Implanted:Qty: 1 on 11/11/2019 by Grzegorz Mi MD at [facility] N/A: Spine 07/23/2025 [id number] / / [id number] Graft Bone Grftn Dbm Aspt 5x2.5cm Post - [id number] Implanted:Qty: 1 on 11/11/2019 by Grzegorz Mi MD at [facility] N/A: Spine Osteotech Inc 07/12/2022 [id number] / [id number] / Graft Bone Grftn Dbm Aspt 5x2.5cm Post - [id number] Implanted:Qty: 1 on 11/11/2019 by Grzegorz Mi MD at [facility] N/A: Spine Osteotech Inc 05/30/2022 [id number] / [id number] / Interbody Fusion Device Implanted:Qty: 1 on 11/11/2019 by Grzegorz Mi MD at [facility] N/A: Spine Medtronic Neurological 04/28/2025 [id number] / / [id number] Graft Bone Grftn Dbm Aspt 5x2.5cm Post - [id number] Implanted:Qty: 1 on 11/11/2019 by Grzegorz Mi MD at [facility] N/A: Spine Osteotech Inc 07/12/2022 [id number] / [id number] / Screw Set .25in Std 32 Thrd Spne Cap Implanted:Qty: 8 on 11/11/2019 by Grzegorz Mi MD at [facility] N/A: Spine Medtronic Sofamor Danek Inc [id number] / / Screw 9.5mm 90mm Ma Spne Solera Cd Hzn Implanted:Qty: 2 on 11/11/2019 by Grzegorz Mi MD at [facility] N/A: Spine Medtronic Sofamor Danek Inc [id number] / / Screw Set Ti Spnl Brk Off Cd Hzn Nonster Implanted:Qty: 18 on 11/11/2019 by Grzegorz Mi MD at [facility] N/A: Spine Medtronic Sofamor Danek Inc [id number] / / Khoi Spnl Rd 500mm 6mm Str Ccm Ln Implanted:Qty: 2 on 11/11/2019 by Grzegorz Mi MD at [facility] N/A: Spine Medtronic Sofamor Danek Inc [id number] / / Khoi Spnl 500mm 5.5mm Cd Hzn Str Ti Ln Cp Implanted:Qty: 1 on 11/11/2019 by Grzegorz Mi MD at [facility] N/A: Spine Medtronic Inc [id number] / / Laminal Connector Screw Implanted:Qty: 4 on 11/11/2019 by Grzegorz Mi MD at [facility] N/A: Spine Medtronic Inc [id number] / / 6.5 X 45 Screw Implanted:Qty: 2 on 11/11/2019 by Grzegorz Mi MD at [facility] N/A: Spine Medtronic Inc [id number] / / 7.5 X 45 Screw Implanted:Qty: 4 on 11/11/2019 by Grzegorz Mi MD at [facility] N/A: Spine Medtronic Inc [id number] / / 7.5 X 50 Screw Implanted:Qty: 4 on 11/11/2019 by Grzegorz Mi MD at [facility] N/A: Spine Medtronic Inc [id number] / / 7.5 X 55 Screw Implanted:Qty: 4 on 11/11/2019 by Grzegorz Mi MD at [facility] N/A: Spine Medtronic Inc [id number] / / Inner Trs Adapter Implanted:Qty: 16 on 11/11/2019 by Grzegorz Mi MD at [facility] N/A: Spine Medtronic Inc [id number] / / 6.5 X 50 Screws Implanted:Qty: 2 on 11/11/2019 by Grzegorz Mi MD at [facility] N/A: Spine Medtronic Inc [id number] / / Graft Bone Grftn Dbm 5cc Ptty Jr - [id number] Implanted:Qty: 1 on 11/21/2019 by Grzegorz Mi MD at [facility] N/A: Spine Osteotech Inc 08/02/2022 [id number] / [id number] / Stpl Bone 2 Hl Lopro Top Ld Intchn Ti Implanted:Qty: 1 on 11/21/2019 by Grzegorz Mi MD at [facility] N/A: Spine Medtronic Sofamor Danek Inc [id number] / / Stpl Bone 2 Hl Lopro Top Ld Intchn Ti Implanted:Qty: 1 on 11/21/2019 by Grzegorz Mi MD at [facility] N/A: Spine Medtronic Sofamor Danek Inc [id number] / / Screw 5.5mm 35mm Spne Thor Ant Slf-Tap Implanted:Qty: 4 on 11/21/2019 by Grzegorz Mi MD at [facility] N/A: Spine Medtronic Sofamor Danek Inc [id number] / / 8cm Plate Implanted:Qty: 1 on 11/21/2019 by Grzegorz Mi MD at [facility] N/A: Spine Medtronic Sofamor Danek Spine [id number] / / Nut Lck Vntg Ant Thorlmbr Spne Ti Screw Implanted:Qty: 2 on 11/21/2019 by Grzegorz Mi MD at [facility] N/A: Spine Medtronic Sofamor Danek Inc [id number] / / 20mm E Stratosphere Cage Implanted:Qty: 1 on 11/21/2019 by Grzegorz Mi MD at [facility] N/A: Spine Medtronic Sofamor Danek Inc [id number] / / Advance Directives Documents on File Type Date Recorded Patient Spring Tacker Expl anation Adv Directive/Living Will/POA 12/04/2019 2:33 [...] 4:59 PM 10/31/2016 4:30 PM Care Teams Golf Ball Cover Treater Relationship Specialty Start Date End Date Jaiden Sotelo MD [address] [address] PCP - General Family Medicine 10/01/16
--- OUTSIDE RECORDS SUMMARY | 2024-04-18 13:17 | XMS_ITS | Encounter Summary ---
Author Organization [facility] Address [address] [place] [address] Care Team Providers Care Lockstitch Topstitcher Name Role Phone Jaiden Sotelo MD Primary Care Provider + Encounter Details Date Type Department Care Team (Late st Contact Info) Description 12/11/2016 [facility] Unknown, [...] documented as of this encounter Care Teams Lockstitch Topstitcher Relationship Specialty Start Date End Date Jaiden Sotelo MD [address] [address] PCP - General Family Medicine 10/01/16 documented as of this encounter
--- OUTSIDE RECORDS SUMMARY | 2024-04-18 13:17 | XMS_ITS | Patient Health Summary ---
Author Organization [facility] [employer] Address [address] 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 This disclosure is being madepursuant to the Care Everywhere program and may not contain all information available regarding this patient. Last updated 17.[facility] Allergies * Codeine(Other) -Low Criticality Medications * Be aware that medications may not be up to date on this document. Alwaysverify current medications with the patient. * doxazosin (CARDURA) 2 MG tablet Take 2 mg by mouth once daily * gabapentin (NEURONTIN) 600 MG tablet(Started 12/24/2015) TAKE 2 TABLETS(1200 MG) BY MOUTH THREE TIMES DAILY * glimepiride (AMARYL) 2 MG tablet Take 2 mg by mouth daily with breakfast * omeprazole (PRILOSEC) 20 MG capsule Take 20 mg by mouth daily before breakfast * clobetasol (TEMOVATE) 0.05 % solution(Started 10/27/2014) Apply to scalp, up to twice daily as needed * PROAIR HFA 108 (90 BASE) MCG/ACT inhaler(Started 03/30/2018) Inhale 2 puffs by mouth every 6 hours as needed * ascorbic acid (VITAMIN C) 250 MG tablet Take 250 mg by mouth once daily * B Complex Vitamins (VITAMIN B COMPLEX PO) Take 1 capsule by mouth once daily * OMDDEPQ-UGISALXGT-LRTI PO Take 1 tablet by mouth * hydroCHLOROthiazide (HYDRODIURIL) 25 MG tablet(Started 05/16/2018) Take 25 mg by mouth once daily * atorvastatin (LIPITOR) 20 MG tablet Take 20 mg by mouth at bedtime * calcium carbonate (TUMS) 500 MG chew tablet(Started 11/30/2019) Take 1 tablet by mouth every 4 hours as needed for Heartburn * predniSONE (DELTASONE) 10 MG tablet(Started 12/14/2019) Take 1.5 tablets by mouth once daily * docusate sodium (COLACE) 100 MG capsule(Started 11/30/2019) Take 1 capsule by mouth 2 times daily * methocarbamol (ROBAXIN) 750 MG tablet(Started 11/30/2019) Take 1 tablet by mouth 2 times daily as needed for Muscle Spasms 1 refill by 11/29/2020 * aspirin (ASPIRIN) 81 MG chew tablet(Started 04/18/2020) Take 81 mg by mouth once daily * busPIRone (BUSPAR) 10 MG tablet(Started 05/13/2020) * ELIQUIS 5 MG tablet(Started 05/21/2020) * melatonin 5 MG tablet Take 10 mg by mouth once daily as needed * metFORMIN (GLUCOPHAGE) 1000 MG tablet(Started 05/14/2020) * tiZANidine (ZANAFLEX) 4 MG tablet(Started 06/02/2020) * traZODone (DESYREL) 50 MG tablet(Started 05/14/2020) * diphenhydramine (BENADRYL) 25mg/50ml SOLN ivpb 25 mg by Intravenous route * BRIMONIDINE 0.15%-DORZOLAMIDE 2% PF EYE DROPS (COMPOUNDED) 1 drop * furosemide (LASIX) 40 MG tablet Take 40 mg by mouth once daily * lidocaine (LIDODERM) 5 % patch Apply 1 patch to skin once daily * B Wrwxjnf-U-Onjgn Acid (RENAL VITAMIN) 0.8 MG TABS * metFORMIN ER 24hr (GLUCOPHAGE XR) 500 MG tablet(Started 08/13/2020) Take 1,000 mg by mouth 2 times daily Active Problems Problem Noted Date Diagnosed Date Shortness of breath 11/22/2019 Chronic midline low back pain 10/28/2019 Abdominal pain 10/27/2019 Preop examination 07/02/2018 Spine deformity, acquired Immunizations * INFLUENZA VACCINE(Given 10/15/2018) * INFLUENZA VACCINE, HIGH-DOSE, QUADR. 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% 09/16/2021 1:43 PM CDT Inhaled Oxygen Concentration 21% 12/10/2019 1 :16 PM CDT Weight 73.5 kg (162 lb) 11/19/2020 11:35 AM CDT Height 177.8 cm (5' 10 ) 11/19/2020 11:35 AM CDT Body Mass Index 23.24 11/19/2020 11:35 AM CDT Medical Devices Implanted Type Area Combination Welder Device Identifier Shelf Expiration Date Model / Serial / Lot Penile Implant Other (Type not listed) Penis Coloplast Co TITAN / / Graft Bone Canc 1-4mm 15ml Frzdr Crsh Implanted:Qty: 1 on 10/29/2016 by Yuniel Fuchs MD at [facility] Spine Lumbar Allosource 05/03/2020 [id number] / / [id number] Sub Bngf Progenix Dbm Bvn Clgn Ptty 10ml Implanted:Qty: 1 on 10/29/2016 by Yuniel Fuchs MD at [facility] Spine Lumbar Medtronic Sofamor Danek Inc 04/14/2018 [id number] / / [id number] Locking Nuts Implanted:Qty: 6 on 10/29/2016 by Yuniel Fuchs MD at [facility] Spine Lumbar [id number] / / Corelink Connectors Implanted:Qty: 6 on 10/29/2016 at [facility] Spine Lumbar [id number] / / Corelink 6.5 X 55 Screw Implanted:Qty: 4 on 10/29/2016 by Yuniel Fuchs MD at [facility] Spine Lumbar 33844.55 / / Corelink 6.5 X 50 Screw Implanted:Qty: 2 on 10/29/2016 by Yuniel Fuchs MD at [facility] Spine Lumbar 47969.50 / / Corelink 65mm Woody Implanted:Qty: 2 on 10/29/2016 by Yuniel Fuchs MD at [facility] Spine Lumbar [id number] / / Corelink 22mm Crosslink Implanted:Qty: 1 on 10/29/2016 by Yuniel Fuchs MD at [facility] Spine Lumbar [id number] / / Implt Dual Lead Sacroiliac 11.5 X 55 Implanted:Qty: 1 on 07/02/2018 by Yuniel Fuchs MD at [facility] Right: Spine [employer]c [id number] / / Implt Dual Lead Sacroiliac 11.5 X 45 Implanted:Qty: 1 on 07/02/2018 by Yuniel Fuchs MD at [facility] Right: Spine [employer]c [id number] / / Graft Bone Alfs Dbm 10ml Gel Implanted:Qty: 1 on 07/02/2018 by Yuniel Fuchs MD at [facility] Right: Spine Allosource 07/25/2020 [id number] / / [id number] Cmnt Bone Kyphon Xpede Spnl Mxr Implanted:Qty: 1 on 11/11/2019 by Grzegorz Mi MD at [facility] N/A: Spine Kyphon Inc 04/22/2022 [id number] / / [id number] Cmnt Bone Hv-R Kphx Mxr Grad Mrk Dspns Implanted:Qty: 1 on 11/11/2019 by Grzegorz Mi MD at [facility] N/A: Spine Kyphon Inc 04/22/2022 [id number] / / [id number] Cmnt Bone Kyphon Xpede Spnl Mxr Implanted:Qty: 1 on 11/11/2019 by Grzegorz Mi MD at [facility] N/A: Spine Kyphon Inc 12/23/2021 [id number] / / [id number] Cmnt Bone Kyphon Xpede Spnl Mxr Implanted:Qty: 1 on 11/11/2019 by Grzegorz Mi MD at [facility] N/A: Spine Kyphon Inc 05/23/2022 [id number] / / [id number] Medtronic Interbody Fusion Device Implanted:Qty: 1 on 11/11/2019 by Grzegorz Mi MD at [facility] N/A: Spine 07/23/2025 [id number] / / [id number] Graft Bone Grftn Dbm Aspt 5x2.5cm Post - [id number] Implanted:Qty: 1 on 11/11/2019 by Grzegorz Mi MD at [facility] N/A: Spine Osteotech Inc 07/12/2022 [id number] / [id number] / Graft Bone Grftn Dbm Aspt 5x2.5cm Post - [id number] Implanted:Qty: 1 on 11/11/2019 by Grzegorz Mi MD at [facility] N/A: Spine Osteotech Inc 05/30/2022 [id number] / [id number] / Interbody Fusion Device Implanted:Qty: 1 on 11/11/2019 by Grzegorz Mi MD at [facility] N/A: Spine Medtronic Neurological 04/28/2025 [id number] / / [id number] Graft Bone Grftn Dbm Aspt 5x2.5cm Post - [id number] Implanted:Qty: 1 on 11/11/2019 by Grzegorz Mi MD at [facility] N/A: Spine Osteotech Inc 07/12/2022 [id number] / [id number] / Screw Set .25in Std 32 Thrd Spne Cap Implanted:Qty: 8 on 11/11/2019 by Grzegorz Mi MD at [facility] N/A: Spine Medtronic Sofamor Danek Inc [id number] / / Screw 9.5mm 90mm Ma Spne Solera Cd Hzn Implanted:Qty: 2 on 11/11/2019 by Grzegorz Mi MD at [facility] N/A: Spine Medtronic Sofamor Danek Inc [id number] / / Screw Set Ti Spnl Brk Off Cd Hzn Nonster Implanted:Qty: 18 on 11/11/2019 by Grzegorz Mi MD at [facility] N/A: Spine Medtronic Sofamor Danek Inc [id number] / / Woody Spnl Rd 500mm 6mm Str Ccm Ln Implanted:Qty: 2 on 11/11/2019 by Grzegorz Mi MD at [facility] N/A: Spine Medtronic Sofamor Danek Inc [id number] / / Woody Spnl 500mm 5.5mm Cd Hzn Str Ti Ln Cp Implanted:Qty: 1 on 11/11/2019 by Grzegorz Mi MD at [facility] N/A: Spine Medtronic Inc [id number] / / Laminal Connector Screw Implanted:Qty: 4 on 11/11/2019 by Grzegorz Mi MD at [facility] N/A: Spine Medtronic Inc [id number] / / 6.5 X 45 Screw Implanted:Qty: 2 on 11/11/2019 by Grzegorz Mi MD at [facility] N/A: Spine Medtronic Inc [id number] / / 7.5 X 45 Screw Implanted:Qty: 4 on 11/11/2019 by Grzegorz Mi MD at [facility] N/A: Spine Medtronic Inc [id number] / / 7.5 X 50 Screw Implanted:Qty: 4 on 11/11/2019 by Grzegorz Mi MD at [facility] N/A: Spine Medtronic Inc [id number] / / 7.5 X 55 Screw Implanted:Qty: 4 on 11/11/2019 by Grzegorz iM MD at [facility] N/A: Spine Medtronic Inc [id number] / / Inner Trs Adapter Implanted:Qty: 16 on 11/11/2019 by Grzegorz Mi MD at [facility] N/A: Spine Medtronic Inc [id number] / / 6.5 X 50 Screws Implanted:Qty: 2 on 11/11/2019 by Grzegorz Mi MD at [facility] N/A: Spine Medtronic Inc [id number] / / Graft Bone Grftn Dbm 5cc Ptty Jr - [id number] Implanted:Qty: 1 on 11/21/2019 by Grzegorz Mi MD at [facility] N/A: Spine Osteotech Inc 08/02/2022 [id number] / [id number] / Stpl Bone 2 Hl Lopro Top Ld Intchn Ti Implanted:Qty: 1 on 11/21/2019 by Grzegorz Mi MD at [facility] N/A: Spine Medtronic Sofamor Danek Inc [id number] / / Stpl Bone 2 Hl Lopro Top Ld Intchn Ti Implanted:Qty: 1 on 11/21/2019 by Grzegorz Mi MD at [facility] N/A: Spine Medtronic Sofamor Danek Inc [id number] / / Screw 5.5mm 35mm Spne Thor Ant Slf-Tap Implanted:Qty: 4 on 11/21/2019 by Grzegorz Mi MD at [facility] N/A: Spine Medtronic Sofamor Danek Inc [id number] / / 8cm Plate Implanted:Qty: 1 on 11/21/2019 by Grzegorz Mi MD at [facility] N/A: Spine Medtronic Sofamor Danek Spine [id number] / / Nut Lck Vntg Ant Thorlmbr Spne Ti Screw Implanted:Qty: 2 on 11/21/2019 by Grzegorz Mi MD at [facility] N/A: Spine Medtronic Sofamor Danek Inc [id number] / / 20mm E Stratosphere Cage Implanted:Qty: 1 on 11/21/2019 by Grzegorz Mi MD at [facility] N/A: Spine Medtronic Sofamor Danek Inc [id number] / / Procedures * XR SKULL TO ANKLE ASAD(Performed 09/24/2021) Performed for S/P lumbar fusion * XR SCOLIOSIS 2 OR 3VW(Performed 11/19/2020) Performed for S/P lumbar fusion * CT ABDOMEN WO CONTRAST(Performed 06/27/2020) Performed for Abdominal wall bulge * XR SKULL TO ANKLE ASAD(Performed 05/15/2020) Performed for Other closed fracture of second lumbar vertebra, sequela, Other fracture of fourth lumbar vertebra, initial encounter for open fracture * CBC W/O DIFFERENTIAL(Performed 04/17/2020) * BASIC METABOLIC PANEL (CALCIUM TOTAL)(Performed 04/16/2020) * BASIC METABOLIC PANEL (CALCIUM TOTAL)(Performed 04/12/2020) * BASIC METABOLIC PANEL (CALCIUM TOTAL)(Performed 04/09/2020) * CBC W/O DIFFERENTIAL(Performed 04/08/2020) * CBC W/O DIFFERENTIAL(Performed 04/07/2020) * XR KNEE LEFT 2VW OR LESS(Performed 04/06/2020) * CBC W/O DIFFERENTIAL(Performed 04/06/2020) * COMPREHENSIVE METABOLIC PANEL(Performed 04/05/2020) * CBC W/O DIFFERENTIAL(Performed 04/05/2020) * PREALBUMIN(Performed 12/21/2019) Performed for Open wound * ALBUMIN BLOOD(Performed 12/21/2019) Performed for Open wound * PTT [facility](Performed 12/21/2019) Performed for Pre-op testing * PT-INR [facility](Performed 12/21/2019) Performed for Pre-op testing * CBC W AUTO DIFFERENTIAL(Performed 12/21/2019) Performed for Pre-op testing * BASIC METABOLIC PANEL (CALCIUM TOTAL)(Performed 12/21/2019) Performed for Pre-op testing * LACTIC ACID BLOOD(Performed 12/10/2019) * TYPE + SCREEN PANEL(Performed 12/10/2019) * COMPREHENSIVE METABOLIC PANEL(Performed 12/10/2019) * CBC W AUTO DIFFERENTIAL(Performed 12/10/2019) * PT-INR [facility](Performed 12/10/2019) * LACTIC ACID BLOOD(Performed 12/10/2019) * APHERESIS/TRANSFUSION ORDER(Performed 12/05/2019) * CARDIAC EKG ORDER(Performed 12/04/2019) * GLUCOSE - POINT OF CARE(Performed 11/30/2019) * GLUCOSE - POINT OF CARE(Performed 11/30/2019) * GLUCOSE - POINT OF CARE(Performed 11/30/2019) * CBC W AUTO DIFFERENTIAL(Performed 11/30/2019) * BASIC METABOLIC PANEL (CALCIUM TOTAL)(Performed 11/30/2019) * GLUCOSE - POINT OF CARE(Performed 11/30/2019) * GLUCOSE - POINT OF CARE(Performed 11/29/2019) * GLUCOSE - POINT OF CARE(Performed 11/29/2019) * GLUCOSE - POINT OF CARE(Performed 11/29/2019) * SARS-COV-2 (COVID-19) RAPID(Performed 11/29/2019) * GLUCOSE - POINT OF CARE(Performed 11/29/2019) * CBC W AUTO DIFFERENTIAL(Performed 11/29/2019) * BASIC METABOLIC PANEL (CALCIUM TOTAL)(Performed 11/29/2019) * GLUCOSE - POINT OF CARE(Performed 11/29/2019) * GLUCOSE - POINT OF CARE(Performed 11/28/2019) * GLUCOSE - POINT OF CARE(Performed 11/28/2019) * GLUCOSE - POINT OF CARE(Performed 11/28/2019) * GLUCOSE - POINT OF CARE(Performed 11/28/2019) * CBC W AUTO DIFFERENTIAL(Performed 11/28/2019) * BASIC METABOLIC PANEL (CALCIUM TOTAL)(Performed 11/28/2019) * GLUCOSE - POINT OF CARE(Performed 11/28/2019) * GLUCOSE - POINT OF CARE(Performed 11/27/2019) * GLUCOSE - POINT OF CARE(Performed 11/27/2019) * CBC W AUTO DIFFERENTIAL(Performed 11/27/2019) * BASIC METABOLIC PANEL (CALCIUM TOTAL)(Performed 11/27/2019) * GLUCOSE - POINT OF CARE(Performed 11/27/2019) * GLUCOSE - POINT OF CARE(Performed 11/27/2019) * GLUCOSE - POINT OF CARE(Performed 11/27/2019) * GLUCOSE - POINT OF CARE(Performed 11/26/2019) * GLUCOSE - POINT OF CARE(Performed 11/26/2019) * GLUCOSE - POINT OF CARE(Performed 11/26/2019) * GLUCOSE - POINT OF CARE(Performed 11/26/2019) * GLUCOSE - POINT OF CARE(Performed 11/26/2019) * GLUCOSE - POINT OF CARE(Performed 11/26/2019) * CBC W AUTO DIFFERENTIAL(Performed 11/26/2019) * BASIC METABOLIC PANEL (CALCIUM TOTAL)(Performed 11/26/2019) * GLUCOSE - POINT OF CARE(Performed 11/25/2019) * GLUCOSE - POINT OF CARE(Performed 11/25/2019) * GLUCOSE - POINT OF CARE(Performed 11/25/2019) * GLUCOSE - POINT OF CARE(Performed 11/25/2019) * GLUCOSE - POINT OF CARE(Performed 11/25/2019) * CBC W AUTO DIFFERENTIAL(Performed 11/25/2019) * BASIC METABOLIC PANEL (CALCIUM TOTAL)(Performed 11/25/2019) * XR CHEST 1VW PORTABLE(Performed 11/24/2019) Performed for Subluxation of lumbar vertebra, initial encounter * GLUCOSE - POINT OF CARE(Performed 11/24/2019) * GLUCOSE - POINT OF CARE(Performed 11/24/2019) * GLUCOSE - POINT OF CARE(Performed 11/24/2019) * XR THORACOLUMBAR SPINE 2VW(Performed 11/24/2019) Performed for Subluxation of lumbar vertebra, initial encounter * XR CHEST 2VW(Performed 11/24/2019) Performed for Subluxation of lumbar vertebra, initial encounter * GLUCOSE - POINT OF CARE(Performed 11/24/2019) * GLUCOSE - POINT OF CARE(Performed 11/24/2019) * CBC W AUTO DIFFERENTIAL(Performed 11/24/2019) * BASIC METABOLIC PANEL (CALCIUM TOTAL)(Performed 11/24/2019) * GLUCOSE - POINT OF CARE(Performed 11/23/2019) * GLUCOSE - POINT OF CARE(Performed 11/23/2019) * GLUCOSE - POINT OF CARE(Performed 11/23/2019) * GLUCOSE - POINT OF CARE(Performed 11/23/2019) * CBC W AUTO DIFFERENTIAL(Performed 11/23/2019) * GLUCOSE - POINT OF CARE(Performed 11/23/2019) * BASIC METABOLIC PANEL (CALCIUM TOTAL)(Performed 11/22/2019) * GLUCOSE - POINT OF CARE(Performed 11/22/2019) * GLUCOSE - POINT OF CARE(Performed 11/22/2019) * GLUCOSE - POINT OF CARE(Performed 11/22/2019) * GLUCOSE - POINT OF CARE(Performed 11/22/2019) * EKG 12-LEAD(Performed 11/22/2019) Performed for Shortness of breath * TYPE + SCREEN PANEL(Performed 11/21/2019) * CBC W AUTO DIFFERENTIAL(Performed 11/21/2019) * BASIC METABOLIC PANEL (CALCIUM TOTAL)(Performed 11/21/2019) * BLOOD GASES ART COMPLETE [facility] OR(Performed 11/21/2019) Performed for Spinal stenosis, lumbosacral region * CT LUMBAR SPINE WO CONTRAST(Performed 11/21/2019) Performed for Subluxation of lumbar vertebra, initial encounter * BLOOD GASES ART COMPLETE [facility] OR(Performed 11/21/2019) * FL SIMÓN SURGERY(Performed 11/21/2019) Performed for Subluxation of lumbar vertebra, initial encounter * TRANSFUSE RED BLOOD CELL LEUKOREDUCED UNIT(S)(Performed 11/21/2019) * BLOOD GASES ART COMPLETE [facility] OR(Performed 11/21/2019) Performed for Spinal stenosis of lumbar region, unspecified whether neurogenic claudication present * BLOOD GASES ART COMPLETE [facility] OR(Performed 11/21/2019) Performed for Spinal stenosis of lumbar region, unspecified whether neurogenic claudication present * TRANSFUSE RED BLOOD CELL LEUKOREDUCED UNIT(S)(Performed 11/21/2019) * BLOOD GASES ART COMPLETE [facility] OR(Performed 11/21/2019) Performed for Spinal stenosis of lumbar region, unspecified whether neurogenic claudication present * ARTERIAL LINE NOTE(Performed 11/21/2019) * ENDOTRACHEAL TUBE NOTE(Performed 11/21/2019) * CORPECTOMY DECOMPRESSION THORACIC/LUMBAR/SACRAL(Performed 11/21/2019) Performed for Pseudoarthrosis of lumbar spine * GLUCOSE - POINT OF CARE(Performed 11/21/2019) * CBC W AUTO DIFFERENTIAL(Performed 11/21/2019) * BASIC METABOLIC PANEL (CALCIUM TOTAL)(Performed 11/21/2019) * GLUCOSE - POINT OF CARE(Performed 11/20/2019) * SARS-COV-2 (COVID-19) IN HOUSE(Performed 11/20/2019) * GLUCOSE - POINT OF CARE(Performed 11/20/2019) * BASIC METABOLIC PANEL (CALCIUM TOTAL)(Performed 11/20/2019) Performed for Spinal stenosis, lumbosacral region * GLUCOSE - POINT OF CARE(Performed 11/20/2019) * GLUCOSE - POINT OF CARE(Performed 11/20/2019) * CBC W AUTO DIFFERENTIAL(Performed 11/20/2019) * BASIC METABOLIC PANEL (CALCIUM TOTAL)(Performed 11/20/2019) * TRANSFUSE RED BLOOD CELL LEUKOREDUCED UNIT(S)(Performed 11/19/2019) * PREPARE RBC LEUKOREDUCED UNIT(Performed 11/19/2019) Performed for Chronic midline low back pain, unspecified whether sciatica present * PREPARE RBC LEUKOREDUCED UNIT(Performed 11/19/2019) * PREPARE RBC LEUKOREDUCED UNIT(Performed 11/19/2019) * PREPARE RBC LEUKOREDUCED UNIT(Performed 11/19/2019) Performed for Chronic midline low back pain, unspecified whether sciatica present * TYPE + SCREEN PANEL(Performed 11/19/2019) * PREPARE RBC LEUKOREDUCED UNIT(Performed 11/19/2019) * GLUCOSE - POINT OF CARE(Performed 11/19/2019) * GLUCOSE - POINT OF CARE(Performed 11/19/2019) * GLUCOSE - POINT OF CARE(Performed 11/19/2019) * GLUCOSE - POINT OF CARE(Performed 11/19/2019) * CBC W AUTO DIFFERENTIAL(Performed 11/19/2019) * BASIC METABOLIC PANEL (CALCIUM TOTAL)(Performed 11/19/2019) * GLUCOSE - POINT OF CARE(Performed 11/19/2019) * GLUCOSE - POINT OF CARE(Performed 11/18/2019) * GLUCOSE - POINT OF CARE(Performed 11/18/2019) * GLUCOSE - POINT OF CARE(Performed 11/18/2019) * GLUCOSE - POINT OF CARE(Performed 11/18/2019) * GLUCOSE - POINT OF CARE(Performed 11/18/2019) * CBC W AUTO DIFFERENTIAL(Performed 11/18/2019) * BASIC METABOLIC PANEL (CALCIUM TOTAL)(Performed 11/18/2019) * GLUCOSE - POINT OF CARE(Performed 11/17/2019) * GLUCOSE - POINT OF CARE(Performed 11/17/2019) * GLUCOSE - POINT OF CARE(Performed 11/17/2019) * GLUCOSE - POINT OF CARE(Performed 11/17/2019) * GLUCOSE - POINT OF CARE(Performed 11/17/2019) * CBC W AUTO DIFFERENTIAL(Performed 11/17/2019) * BASIC METABOLIC PANEL (CALCIUM TOTAL)(Performed 11/17/2019) * GLUCOSE - POINT OF CARE(Performed 11/16/2019) * GLUCOSE - POINT OF CARE(Performed 11/16/2019) * GLUCOSE - POINT OF CARE(Performed 11/16/2019) * BASIC METABOLIC PANEL (CALCIUM TOTAL)(Performed 11/15/2019) * CBC W AUTO DIFFERENTIAL(Performed 11/15/2019) * GLUCOSE - POINT OF CARE(Performed 11/15/2019) * GLUCOSE - POINT OF CARE(Performed 11/15/2019) * GLUCOSE - POINT OF CARE(Performed 11/15/2019) * BASIC METABOLIC PANEL (CALCIUM TOTAL)(Performed 11/15/2019) * GLUCOSE - POINT OF CARE(Performed 11/15/2019) * CBC W AUTO DIFFERENTIAL(Performed 11/14/2019) * GLUCOSE - POINT OF CARE(Performed 11/14/2019) * GLUCOSE - POINT OF CARE(Performed 11/14/2019) * CBC W AUTO DIFFERENTIAL(Performed 11/14/2019) * GLUCOSE - POINT OF CARE(Performed 11/14/2019) * TYPE + SCREEN PANEL(Performed 11/14/2019) * PREPARE RBC LEUKOREDUCED UNIT(Performed 11/14/2019) * BASIC METABOLIC PANEL (CALCIUM TOTAL)(Performed 11/14/2019) * CBC W AUTO DIFFERENTIAL(Performed 11/14/2019) * GLUCOSE - POINT OF CARE(Performed 11/14/2019) * CBC W AUTO DIFFERENTIAL(Performed 11/14/2019) * GLUCOSE - POINT OF CARE(Performed 11/13/2019) * GLUCOSE - POINT OF CARE(Performed 11/13/2019) * CT LUMBAR SPINE WO CONTRAST(Performed 11/13/2019) Performed for Subluxation of lumbar vertebra, initial encounter * CT THORACIC SPINE WO CONTRAST(Performed 11/13/2019) Performed for Subluxation of lumbar vertebra, initial encounter * GLUCOSE - POINT OF CARE(Performed 11/13/2019) * GLUCOSE - POINT OF CARE(Performed 11/13/2019) * BASIC METABOLIC PANEL (CALCIUM TOTAL)(Performed 11/13/2019) * GLUCOSE - POINT OF CARE(Performed 11/13/2019) * CBC W AUTO DIFFERENTIAL(Performed 11/12/2019) * GLUCOSE - POINT OF CARE(Performed 11/12/2019) * BLOOD GASES ARTERIAL(Performed 11/12/2019) * BLOOD GASES ART COMPLETE [facility] OR(Performed 11/12/2019) * GLUCOSE - POINT OF CARE(Performed 11/12/2019) * GLUCOSE - POINT OF CARE(Performed 11/12/2019) * BLOOD GASES ARTERIAL(Performed 11/12/2019) * XR CHEST 1VW(Performed 11/12/2019) Performed for Subluxation of lumbar vertebra, initial encounter * GLUCOSE - POINT OF CARE(Performed 11/12/2019) * CT HEAD WO CONTRAST(Performed 11/12/2019) Performed for Subluxation of lumbar vertebra, initial encounter * GLUCOSE - POINT OF CARE(Performed 11/12/2019) * BASIC METABOLIC PANEL (CALCIUM TOTAL)(Performed 11/11/2019) * PTT [facility](Performed 11/11/2019) * PT-INR [facility](Performed 11/11/2019) * CBC W AUTO DIFFERENTIAL(Performed 11/11/2019) * GLUCOSE - POINT OF CARE(Performed 11/11/2019) * BASIC METABOLIC PANEL (CALCIUM TOTAL)(Performed 11/11/2019) * XR CHEST 1VW PORTABLE(Performed 11/11/2019) Performed for Subluxation of lumbar vertebra, initial encounter * GLUCOSE - POINT OF CARE(Performed 11/11/2019) * FL OARM SURGERY(Performed 11/11/2019) Performed for Subluxation of lumbar vertebra, initial encounter * FL SIMÓN SURGERY(Performed 11/11/2019) Performed for Subluxation of lumbar vertebra, initial encounter * BLOOD GASES ART COMPLETE [facility] OR(Performed 11/11/2019) Performed for Spinal stenosis of lumbar region, unspecified whether neurogenic claudication present * BLOOD GASES ART COMPLETE [facility] OR(Performed 11/11/2019) Performed for Spinal stenosis of lumbar region, unspecified whether neurogenic claudication present * TRANSFUSE RED BLOOD CELL LEUKOREDUCED ML(S)(Performed 11/11/2019) * BLOOD GASES ART COMPLETE [facility] OR(Performed 11/11/2019) Performed for Spinal stenosis of lumbar region, unspecified whether neurogenic claudication present * BLOOD GASES ART COMPLETE [facility] OR(Performed 11/11/2019) Performed for Spinal stenosis, lumbosacral region * LAMINECTOMY/DECOMPRESSION LUMBAR(Performed 11/11/2019) Performed for Injury * CENTRAL LINE NOTE(Performed 11/11/2019) * ARTERIAL LINE NOTE(Performed 11/11/2019) * PERIPHERAL IV NOTE(Performed 11/11/2019) * ENDOTRACHEAL TUBE NOTE(Performed 11/11/2019) * GLUCOSE - POINT OF CARE(Performed 11/11/2019) * ABO TYPE: RETYPE-PATIENT RESULT ONLY(Performed 11/11/2019) * BASIC METABOLIC PANEL (CALCIUM TOTAL)(Performed 11/11/2019) * CBC W AUTO DIFFERENTIAL(Performed 11/11/2019) * GLUCOSE - POINT OF CARE(Performed 11/11/2019) * GLUCOSE - POINT OF CARE(Performed 11/10/2019) * GLUCOSE - POINT OF CARE(Performed 11/10/2019) * PREPARE FFP UNIT(S)(Performed 11/10/2019) * PREPARE PLATELET PHERESIS UNIT(S)(Performed 11/10/2019) * PREPARE RBC LEUKOREDUCED UNIT(Performed 11/10/2019) * TYPE + SCREEN PANEL(Performed 11/10/2019) * CBC W AUTO DIFFERENTIAL(Performed 11/10/2019) * PTT [facility](Performed 11/10/2019) * PT-INR [facility](Performed 11/10/2019) * GLUCOSE - POINT OF CARE(Performed 11/10/2019) * GLUCOSE - POINT OF CARE(Performed 11/10/2019) * GLUCOSE - POINT OF CARE(Performed 11/10/2019) * GLUCOSE - POINT OF CARE(Performed 11/09/2019) * GLUCOSE - POINT OF CARE(Performed 11/09/2019) * GLUCOSE - POINT OF CARE(Performed 11/09/2019) * GLUCOSE - POINT OF CARE(Performed 11/09/2019) * GLUCOSE - POINT OF CARE(Performed 11/09/2019) * GLUCOSE - POINT OF CARE(Performed 11/08/2019) * GLUCOSE - POINT OF CARE(Performed 11/08/2019) * GLUCOSE - POINT OF CARE(Performed 11/08/2019) * GLUCOSE - POINT OF CARE(Performed 11/08/2019) * GLUCOSE - POINT OF CARE(Performed 11/08/2019) * GLUCOSE - POINT OF CARE(Performed 11/07/2019) * GLUCOSE - POINT OF CARE(Performed 11/07/2019) * GLUCOSE - POINT OF CARE(Performed 11/07/2019) * GLUCOSE - POINT OF CARE(Performed 11/07/2019) * GLUCOSE - POINT OF CARE(Performed 11/07/2019) * GLUCOSE - POINT OF CARE(Performed 11/06/2019) * GLUCOSE - POINT OF CARE(Performed 11/06/2019) * GLUCOSE - POINT OF CARE(Performed 11/06/2019) * GLUCOSE - POINT OF CARE(Performed 11/06/2019) * CBC W AUTO DIFFERENTIAL(Performed 11/06/2019) * BASIC METABOLIC PANEL (CALCIUM TOTAL)(Performed 11/06/2019) * GLUCOSE - POINT OF CARE(Performed 11/06/2019) * GLUCOSE - POINT OF CARE(Performed 11/05/2019) * GLUCOSE - POINT OF CARE(Performed 11/05/2019) * GLUCOSE - POINT OF CARE(Performed 11/05/2019) * GLUCOSE - POINT OF CARE(Performed 11/05/2019) * GLUCOSE - POINT OF CARE(Performed 11/05/2019) * GLUCOSE - POINT OF CARE(Performed 11/04/2019) * GLUCOSE - POINT OF CARE(Performed 11/04/2019) * GLUCOSE - POINT OF CARE(Performed 11/04/2019) * C-REACTIVE PROTEIN SENSITIVE(Performed 11/04/2019) * ERYTHROCYTE SEDIMENTATION RATE(Performed 11/04/2019) * GLUCOSE - POINT OF CARE(Performed 11/04/2019) * GLUCOSE - POINT OF CARE(Performed 11/04/2019) * GLUCOSE - POINT OF CARE(Performed 11/03/2019) * GLUCOSE - POINT OF CARE(Performed 11/03/2019) * GLUCOSE - POINT OF CARE(Performed 11/03/2019) * GLUCOSE - POINT OF CARE(Performed 11/03/2019) * GLUCOSE - POINT OF CARE(Performed 11/03/2019) * GLUCOSE - POINT OF CARE(Performed 11/02/2019) * GLUCOSE - POINT OF CARE(Performed 11/02/2019) * GLUCOSE - POINT OF CARE(Performed 11/02/2019) * GLUCOSE - POINT OF CARE(Performed 11/02/2019) * MRI LUMBAR SPINE WO CONTRAST(Performed 11/02/2019) Performed for Chronic midline low back pain, unspecified whether sciatica present * GLUCOSE - POINT OF CARE(Performed 11/02/2019) * GLUCOSE - POINT OF CARE(Performed 11/01/2019) * GLUCOSE - POINT OF CARE(Performed 11/01/2019) * SARS-COV-2 (COVID-19) IN HOUSE(Performed 11/01/2019) Performed for Subluxation of lumbar vertebra, initial encounter, Preop examination * GLUCOSE - POINT OF CARE(Performed 11/01/2019) * GLUCOSE - POINT OF CARE(Performed 11/01/2019) * CBC W AUTO DIFFERENTIAL(Performed 11/01/2019) Performed for Chronic midline low back pain, unspecified whether sciatica present * BASIC METABOLIC PANEL (CALCIUM TOTAL)(Performed 11/01/2019) Performed for Chronic midline low back pain, unspecified whether sciatica present * GLUCOSE - POINT OF CARE(Performed 11/01/2019) * GLUCOSE - POINT OF CARE(Performed 11/01/2019) * GLUCOSE - POINT OF CARE(Performed 10/31/2019) * GLUCOSE - POINT OF CARE(Performed 10/31/2019) * GLUCOSE - POINT OF CARE(Performed 10/31/2019) * GLUCOSE - POINT OF CARE(Performed 10/31/2019) * CBC W AUTO DIFFERENTIAL(Performed 10/31/2019) Performed for Chronic midline low back pain, unspecified whether sciatica present * BASIC METABOLIC PANEL (CALCIUM TOTAL)(Performed 10/31/2019) Performed for Chronic midline low back pain, unspecified whether sciatica present * GLUCOSE - POINT OF CARE(Performed 10/31/2019) * GLUCOSE - POINT OF CARE(Performed 10/30/2019) * GLUCOSE - POINT OF CARE(Performed 10/30/2019) * GLUCOSE - POINT OF CARE(Performed 10/30/2019) * CBC W AUTO DIFFERENTIAL(Performed 10/30/2019) Performed for Chronic midline low back pain, unspecified whether sciatica present * BASIC METABOLIC PANEL (CALCIUM TOTAL)(Performed 10/30/2019) Performed for Chronic midline low back pain, unspecified whether sciatica present * GLUCOSE - POINT OF CARE(Performed 10/30/2019) * GLUCOSE - POINT OF CARE(Performed 10/30/2019) * GLUCOSE - POINT OF CARE(Performed 10/29/2019) * GLUCOSE - POINT OF CARE(Performed 10/29/2019) * GLUCOSE - POINT OF CARE(Performed 10/29/2019) * GLUCOSE - POINT OF CARE(Performed 10/29/2019) * BASIC METABOLIC PANEL (CALCIUM TOTAL)(Performed 10/29/2019) * PTT [facility](Performed 10/28/2019) * PT-INR [facility](Performed 10/28/2019) * CBC W AUTO DIFFERENTIAL(Performed 10/28/2019) * DEXA BONE DENSITY AXIAL SKELETON(Performed 10/12/2019) Performed for Preop examination * XR SPINE ENTIRE 2 OR 3VW(Performed 03/08/2019) Performed for Preop examination, Lumbar radiculitis * DEXA BONE DENSITY AXIAL SKELETON(Performed 03/01/2019) Performed for Other fracture of fourth lumbar vertebra, initial encounter for open fracture , Preopexamination, Lumbar radiculitis * CT LUMBAR SPINE WO CONTRAST(Performed 03/01/2019) Performed for Preop examination, Lumbar radiculitis, Other fracture of fourth lumbar vertebra, initial encounter for open fracture * MRI LUMBAR SPINE WO CONTRAST(Performed 03/01/2019) Performed for Preop examination, Lumbar radiculitis * EMG WITH NERVE CONDUCTION STUDY(Performed 02/28/2019) Performed for Preop examination, Lumbar radiculitis * CT PELVIS WO CONTRAST(Performed 09/27/2018) Performed for Sacroiliitis (HCC), S/P neurological surgery * PAIN MANAGEMENT PROCEDURE TIME(Performed 09/15/2018) Performed for Failed back surgical syndrome, Radiculopathy of lumbar region, Low back pain, unspecified back pain laterality, unspecified chronicity, with sciatica presence unspecified, Other chronicpain * PAIN MANAGEMENT PROCEDURE TIME(Performed 08/20/2018) Performed for Radiculopathy of lumbar region, Low back pain, unspecified back pain laterality, unspecified chronicity, with sciatica presence unspecified, Failed back syndrome, Other chronic pain * CT PELVIS WO CONTRAST(Performed 07/26/2018) Performed for Sacroiliitis (HCC) * APHERESIS/TRANSFUSION ORDER(Performed 07/06/2018) * GLUCOSE - POINT OF CARE(Performed 07/03/2018) * GLUCOSE - POINT OF CARE(Performed 07/02/2018) * PT EVAL AND TREAT(Performed 07/02/2018) * GLUCOSE - POINT OF CARE(Performed 07/02/2018) * FL SIMÓN SURGERY(Performed 07/02/2018) Performed for Sacroiliac joint pain * ENDOTRACHEAL TUBE NOTE(Performed 07/02/2018) * FUSION SACROILIAC JOINT(Performed 07/02/2018) * GLUCOSE - POINT OF CARE(Performed 07/02/2018) * BLOOD TYPE VERIFICATION(Performed 07/02/2018) * URINE MICROSCOPIC ONLY(Performed 07/02/2018) * URINALYSIS REFLEX TO MICROSCOPIC NO CULTURE(Performed 07/02/2018) * BASIC METABOLIC PANEL (CALCIUM TOTAL)(Performed 07/02/2018) Performed for Preop examination * EKG 12-LEAD(Performed 06/23/2018) Performed for Preop examination * CULTURE MSSA/MRSA(Performed 06/23/2018) Performed for Preop examination * TYPE + SCREEN PANEL(Performed 06/23/2018) Performed for Preop examination * COMPREHENSIVE METABOLIC PANEL(Performed 06/23/2018) Performed for Preop examination * HEMOGLOBIN A1C(Performed 06/23/2018) Performed for Preop examination, Type 2 diabetes mellitus without complication, without long-term current use of insulin (HCC) * IMAGING/RADIOLOGY/XRAY RESULTS ORDER(Performed 03/30/2018) * XR LUMBAR SP FLEX EXT 2 OR 3VW(Performed 04/16/2017) Performed for S/P lumbar fusion * EMG(Performed 04/02/2017) Performed for S/P lumbar fusion, Transient alteration of awareness, Disorientation * CT HEAD WO CONTRAST(Performed 03/09/2017) Performed for Transient alteration of awareness, Disorientation * XR LUMBAR SPINE 2 OR 3VW(Performed 03/09/2017) Performed for S/P lumbar fusion * XR LUMBAR SPINE 2 OR 3VW(Performed 2017) Performed for S/P lumbar fusion * XR LUMBAR SPINE 2 OR 3VW(Performed 12/08/2016) Performed for S/P lumbar fusion * EMG(Performed 11/04/2016) * APHERESIS/TRANSFUSION ORDER(Performed 11/04/2016) * GLUCOSE - POINT OF CARE(Performed 10/29/2016) * FL SIMÓN SURGERY LESS 60 MIN(Performed 10/29/2016) Performed for Low back pain with right-sided sciatica, unspecified back pain laterality, unspecified chronicity * LAMINECTOMY/DECOMPRESSION LUMBAR(Performed 10/29/2016) * GLUCOSE - POINT OF CARE(Performed 10/29/2016) * BLOOD TYPE VERIFICATION(Performed 10/29/2016) * CULTURE MSSA/MRSA(Performed 10/21/2016) Performed for Preop examination * TYPE + SCREEN PANEL(Performed 10/21/2016) Performed for Preop examination * HGB HCT PANEL(Performed 10/21/2016) Performed for Preop examination * BASIC METABOLIC PANEL (CALCIUM TOTAL)(Performed 10/21/2016) Performed for Preop examination * EKG 12-LEAD(Performed 10/21/2016) Performed for Preop examination * IMAGING/RADIOLOGY/XRAY RESULTS ORDER(Performed 09/09/2016) * CULTURE ANAEROBE+AEROBE+GRAM STAIN(Performed 11/08/2014) * IMAGING/RADIOLOGY/XRAY RESULTS ORDER(Performed 10/13/2013) Results * XR SKULL TO ANKLE ASAD (09/24/2021 10:39 AM CDT) Only the most recent of2 resultswithin the time period is included. Anatomical Region Laterality Modality Radiographic Kinsey ging 09/24/2021 11:1 2 AM CDT Impressions 09/24/2021 11:21 AM CDT IMPRESSION: Instrumented spinal fusion, not significantly changed. > Interpreting Provider: Titi Antonio MD on 09/24/2021 11:21 AM Narrative 09/24/2021 11:21 AM CDT PROCEDURE: XR SKULL TO ANKLE ASAD, DATE/TIME OF EXAM: 09/24/2021 10:40 AM, LOCATION [facility] INDICATION: Z98.1: S/P lumbar fusion ADDITIONAL CLINICAL INFORMATION: Ordering Provider Reason For Exam: Technologist Note: Additional: COMPARISON: 05/15/2020 TECHNIQUE: 2 view FINDINGS: Instrumented spinal fusion is present with posterior rods and screws from T9 to the sacrum and iliac bones. There has been corpectomy and placement of a vertebral body prosthesis in the region of L2 and L3. A left lateral plate and screws is visible at L1-L4. Lumbar interbody devices are present. Cement is present in multiple mid to lower thoracic vertebra. Lumbar laminectomies are evident. There is sagittal and coronal plane imbalance measuring +11 and -6.4 cm respectively. The visualized skull is unremarkable. The visualized lower extremities are notable for a right proximal femoral cephalomedullary nail, bilateral knee osteoarthritis, and vascular calcification. Fusion devices at the right sacroiliac joint. Procedure Note Titi Antonio MD - 09/24/2021 PROCEDURE: XR SKULL TO ANKLE ASAD, DATE/TIME OF EXAM: 09/24/2021 10:40AM, LOCATION [facility] INDICATION: Z98.1: S/P lumbar fusion ADDITIONAL CLINICAL INFORMATION: Ordering Provider Reason For Exam: Technologist Note: Additional: COMPARISON: 05/15/2020 TECHNIQUE: 2 view FINDINGS: Instrumented spinal fusion is present with posterior rods and screwsfrom T9 to the sacrum and iliac bones. There has been corpectomy andplacement of a vertebral body prosthesis in the region of L2 and L3. A leftlateral plate and screws is visible at L1-L4. Lumbar interbody devices arepresent. Cement is present in multiple mid to lower thoracic vertebra. Lumbar laminectomies are evident. There is sagittal and coronal plane imbalance measuring +11 and -6.4 cm respectively. The visualized skull is unremarkable. The visualized lower extremities are notable for a right proximal femoral cephalomedullary nail, bilateral knee osteoarthritis,and vascular calcification. Fusion devices at the right sacroiliac joint. IMPRESSION: Instrumented spinal fusion, not significantly changed. > Interpreting Provider: Titi Antnoio MD on 09/24/2021 11:21 AM Laura Ceja APRN-FIELD CASE MANAGER DIAGNOSTIC IMAGI NG ORDERABLES * XR SCOLIOSIS 2VW (11/19/2020 1:09 PM CDT) Anatomical Region Laterality Modality Spine Radiographic Kinsey ging 11/19/2020 1:18 PM CDT Impressions 11/19/2020 1:24 PM CDT 1. Extensive thoracolumbar-sacral posterior metallic fusion including a thoracolumbar corpectomy spacer. *Reading Radiologist: Josep Burns on 11/19/2020 at 1:24 PM Narrative 11/19/2020 1:24 PM CDT Scoliosis 2 views standing DATE: 11/19/2020. INDICATION: Arthrodesis status. COMPARISONS: Lumbar spine CT from 03/01/2019. FINDINGS: There is extensive thoracolumbar sacral posterior metallic fusion including a corpectomy in the upper lumbar spine. The L5 vertebral body is lumbarized. Hardware extends from T7 into the sacrum. Vertebral body cement is also present at T6. The thoracic kyphosis and lumbar lordosis are normal. No visible hardware failure or displacement. Several right SI joint screws are also present. Incidentally noted is peripheral atherosclerosis. Procedure Note Josep Burns MD - 11/19/2020 Scoliosis 2 views standing DATE: 11/19/2020. INDICATION: Arthrodesis status. COMPARISONS: Lumbar spine CT from 03/01/2019. FINDINGS: There is extensive thoracolumbar sacral posterior metallic fusion including a corpectomy in the upper lumbar spine. The L5 vertebral body is lumbarized. Hardware extends from T7 into the sacrum. Vertebral body cement is also present at T6. The thoracic kyphosis and lumbar lordosis are normal. No visible hardware failure or displacement. Several right SI joint screws are also present. Incidentally noted is peripheral atherosclerosis. IMPRESSION 1. Extensive thoracolumbar-sacral posterior metallic fusion including a thoracolumbar corpectomy spacer. *Reading Radiologist: Josep Burns on 11/19/2020 at 1:24 PM Grzegorz Mi MD DIAGNOSTIC IMAGI NG ORDERABLES * CT ABDOMEN WO CONTRAST (06/27/2020 10:32 AM CDT) Anatomical Region Laterality Modality Abdomen Computed Tomogra phy 06/27/2020 11:1 8 AM CDT Impressions 06/27/2020 4:22 PM CDT Impression: No abdominal herniation within the [id number]. Report drafted by Graciela Keen (resident) I, Dr. RUPALI SWAIN have personally reviewed and interpreted this examination/study. This report was electronically signed by RUPALI SWAIN on 06/27/2020 4:22 PM . Narrative 06/27/2020 4:22 PM CDT Procedure Information DATE: 06/27/2020 EXAMINATION: Computed tomography (CT) of the abdomen without contrast. TECHNIQUE: CT of the abdomen was performed without contrast according to standard protocol. Clinical Information HISTORY: R19.00: Abdominal wall bulge COMPARISON: Comparison is made to a prior study from 10/27/2019. Findings Evaluation of visceral and vascular structures is degraded due to lack of intravenous contrast administration. Lower Chest: There are multiple calcifications in the right hilum in addition to an 8 mm calcified nodule in the right lower lobe likely representing healed granulomas. There is subsegmental atelectasis in the lower lobes bilaterally. Atherosclerotic changes in the coronary arteries and an annular calcification in the region of the aortic valve are noted. Hepatobiliary: Two subcentimeter calcified granuloma in the right hepatic lobe, unremarkable otherwise. Pancreas: Normal. Evaluation is limited due to extensive metallic artifacts. Spleen: Numerous calcified granulomas scattered, normal otherwise. Kidneys: Grossly have normal contours. No hydronephrosis. Metallic artifacts are limiting proper evaluation. Adrenals: Normal. Retroperitoneum: Obscured due to artifact, but grossly normal. Peritoneum: Normal. Gastrointestinal: The stomach and visualized loops of bowel are unremarkable. No hernia identified. Appendix: Normal. Vasculature: Scattered atherosclerotic vasculature changes. Bones: Extensive metallic artifacts in the spine extending from T9 down to the sacrum likely related to multiple surgical interventions (laminectomy, woody fixation and fusion) and hardware insertion. Soft tissues: Normal. No umbilical hernia identified. Procedure Note Rupali Swain MD - 06/27/2020 Procedure Information DATE: 06/27/2020 EXAMINATION: Computed tomography (CT) of the abdomen without contrast. TECHNIQUE: CT of the abdomen was performed without contrast according to standard protocol. Clinical Information HISTORY: R19.00: Abdominal wall bulge COMPARISON: Comparison is made to a prior study from 10/27/2019. Findings Evaluation of visceral and vascular structures is degraded due to lackof intravenous contrast administration. Lower Chest: There are multiple calcifications in the right hilum in addition to an 8 mm calcified nodule in the right lower lobe likely representing healed granulomas. There is subsegmental atelectasis in the lower lobes bilaterally. Atherosclerotic changes in the coronary arteries and an annular calcification in the region of the aortic valve are noted. Hepatobiliary: Two subcentimeter calcified granuloma in the right hepatic lobe, unremarkable otherwise. Pancreas: Normal. Evaluation is limited due to extensive metallic artifacts. Spleen: Numerous calcified granulomas scattered, normal otherwise. Kidneys: Grossly have normal contours. No hydronephrosis. Metallic artifacts are limiting proper evaluation. Adrenals: Normal. Retroperitoneum: Obscured due to artifact, but grossly normal. Peritoneum: Normal. Gastrointestinal: The stomach and visualized loops of bowel are unremarkable. No hernia identified. Appendix: Normal. Vasculature: Scattered atherosclerotic vasculature changes. Bones: Extensive metallic artifacts in the spine extending from T9 down to the sacrum likely related to multiple surgical interventions (laminectomy,woody fixation and fusion) and hardware insertion. Soft tissues: Normal. No umbilical hernia identified. Impression: No abdominal herniation within the [id number]. Report drafted by Graciela Keen (resident) I, Dr. RUPALI SWAIN have personally reviewed and interpreted this examination/study. This report was electronically signed by RUPALI SWAIN on 14:22 PM . Clair Ramirez MD CT ORDERABLES * (ABNORMAL) CBC W/O DIFFERENTIAL (04/17/2020 5:33 AM COVERING MACHINE OPERATOR HELPER) Only the most recent of5 resultswithin the time period is included. WBC 6.7 4.4 - 10.7 x10E9/L 04/17/2020 6:07 AM [facility] RBC 3.97 3.80 - 5.40 x10E12/L 04/17/2020 6:07 AM [facility] Hemoglobin 11.2(L) 12.0 - 17.6 gm/dL 04/17/2020 6:07 AM [facility] Hematocrit 34.7(L) 35.2 - 51.7 % 04/17/2020 6:07 AM [facility] MCV 87.4 80.7 - 98.3 fl 04/17/2020 6:07 AM [facility] MCH 28.2 26.7 - 34.0 pg 04/17/2020 6:07 AM [facility] MCHC 32.3 30.8 - 35.9 gm/dL 04/17/2020 6:07 AM [facility] Platelet Count 173 153 - 416 x10E9/L 04/17/2020 6:07 AM [facility] RDW-CV 15.6(H) 12.1 - 14.9 % 04/17/2020 6:07 AM [facility] MPV 10.7 9.4 - 12.9 fl 04/17/2020 6:07 AM [facility] Blood BLOOD SPECIMEN / Unknown Lab Venipuncture / Unknown 04/17/2020 5:33 AM COVERING MACHINE OPERATOR HELPER 04/17/2020 6:00 AM COVERING MACHINE OPERATOR HELPER Clair Mason APRN-MARLENA LAB - HEMAT OLOGY ORDERABLES [facility] [address] [place] [address] * (ABNORMAL) BASIC METABOLIC PANEL (CALCIUM TOTAL) (04/16/2020 2:33 PM COVERING MACHINE OPERATOR HELPER) Only the most recent of33 resultswithin the time period is included. Glucose 84 70 - 105 mg/dL 04/16/2020 4:23 PM [facility] Sodium 137 136 - 145 mmol/L 04/16/2020 4:23 PM [facility] Potassium 4.1 3.5 - 5.1 mmol/L 04/16/2020 4:23 PM [facility] Chloride 99 98 - 107 mmol/L 04/16/2020 4:23 PM [facility] CO2 24 23 - 31 mmol/L 04/16/2020 4:23 PM [facility] Calcium 9.1 8.4 - 10.4 mg/dL 04/16/2020 4:23 PM [facility] Anion Gap 14 8 - 18 mmol/L 04/16/2020 4:23 PM [facility] Comment:Attention clinician: Reference Range change. BUN 38(H) 8.4 - 25.7 mg/dL 04/16/2020 4:23 PM [facility] Creatinine 1.13 0.72 - 1.25 mg/dL 04/16/2020 4:23 PM [facility] eGFR by MDRD >60 mL/min/1.7 3m2 04/16/2020 4:23 PM [facility] eGFR by MDRD >60 mL/min/1.7 3m2 04/16/2020 4:23 PM [facility] Blood BLOOD SPECIMEN / Unknown Venipuncture / Unknown 04/16/2020 2:33 PM COVERING MACHINE OPERATOR HELPER 04/16/2020 4:01 PM COVERING MACHINE OPERATOR HELPER Clair MONTERO LAB - CHEMI STRY ORDERABLES [facility] [address] [place] [address] * XR KNEE LEFT 2VW OR LESS (04/06/2020 1:56 PM COVERING MACHINE OPERATOR HELPER) Anatomical Region Laterality Modality Lower Extremity Radiographic Kinsey ging 04/06/2020 2:07 PM COVERING MACHINE OPERATOR HELPER Narrative 04/06/2020 2:20 PM COVERING MACHINE OPERATOR HELPER LEFT KNEE 2 VIEW HISTORY: Chronic pain. There is tricompartmental hypertrophic degenerative change with mild joint space narrowing. Chondrocalcinosis of the menisci is present. There is a moderate-sized joint effusion. Edited by Krys Morales on 04/06/2020 2:13 PM *Reading Radiologist: Vivek Gaston on 04/06/2020 at 2:20 PM Procedure Note Vivek Gaston MD - 04/06/2020 LEFT KNEE 2 VIEW HISTORY: Chronic pain. There is tricompartmental hypertrophic degenerative change with mild joint space narrowing. Chondrocalcinosis of the menisci is present. There is a moderate-sized joint effusion. Edited by Krys Morales on 04/06/2020 2:13 PM *Reading Radiologist: Vivek Gaston on 04/06/2020 at 2:20 PM Iris Wu MD DIAGNOSTIC IMAGING O RDERABLES * (ABNORMAL) COMPREHENSIVE METABOLIC PANEL (04/05/2020 7:22 AM COVERING MACHINE OPERATOR HELPER) Only the most recent of3 resultswithin the time period is included. Glucose 98 70 - 105 mg/dL 04/05/2020 9:24 AM [facility] Sodium 142 136 - 145 mmol/L 04/05/2020 9:24 AM [facility] Potassium 3.6 3.5 - 5.1 mmol/L 04/05/2020 9:24 AM [facility] Chloride 106 98 - 107 mmol/L 04/05/2020 9:24 AM [facility] CO2 30 23 - 31 mmol/L 04/05/2020 9:24 AM [facility] Calcium 8.5 8.4 - 10.4 mg/dL 04/05/2020 9:24 AM [facility] Anion Gap 6(L) 8 - 18 mmol/L 04/05/2020 9:24 AM [facility] Comment:Attention clinician: Reference Range change. BUN 15 8.4 - 25.7 mg/dL 04/05/2020 9:24 AM [facility] Creatinine 0.76 0.72 - 1.25 mg/dL 04/05/2020 9:24 AM [facility] Alkaline Phosphatase 58 40 - 150 U/L 04/05/2020 9:24 AM [facility] Comment:Attention clinician: Reference Range change. ALT 8 0 - 61 U/L 04/05/2020 9:24 AM [facility] AST 12 5 - 34 U/L 04/05/2020 9:24 AM [facility] Protein Total 5.7(L) 6.4 - 8.3 gm/dL 04/05/2020 9:24 AM [facility] Albumin 3.2 3.2 - 4.6 gm/dL 04/05/2020 9:24 AM [facility] Bilirubin Total 0.4 0.2 - 1.2 mg/dL 04/05/2020 9:24 AM [facility] Comment:Attention clinician: Reference Range change. eGFR by MDRD >60 mL/min/1.7 3m2 04/05/2020 9:24 AM [facility] eGFR by MDRD >60 mL/min/1.7 3m2 04/05/2020 9:24 AM [facility] Blood BLOOD SPECIMEN / Unknown Lab Venipuncture / Unknown 04/05/2020 7:22 AM COVERING MACHINE OPERATOR HELPER 04/05/2020 8:40 AM COVERING MACHINE OPERATOR HELPER Clair Mason BAR HELPER-FIELD CASE MANAGER LAB - CHEMI STRY ORDERABLES [facility] [address] [place] [address] * PTT [facility] (12/21/2019 12:55 PM CDT) Only the most recent of4 resultswithin the time period is included. APTT 30.9 23.0 - 38.4 Seconds 12/21/2019 1:25 PM CDT [facility] Comment:Suggested therapeuti c range for full dose I.V. unfractionated heparin therapy for venous thromboembolism is 71 to 109 seconds. Blood BLOOD SPECIMEN / Unknown Lab Venipuncture / Unknown 12/21/2019 12:55 PM CDT 12/21/2019 1:16 PM CDT Grzegorz Mi MD LAB - COAGULATIO N ORDERABLES Performing Organization Address [facility] Co de Phone Number [address] [address], [facility] [phone] * PT-INR [facility] (12/21/2019 12:55 PM CDT) Only the most recent of5 resultswithin the time period is included. PT 13.2 12.1 - 14.8 Seconds 12/21/2019 1:25 PM CDT [facility] INR 1.0 See Comment 12/21/2019 1:25 PM CDT [facility] Comment:The suggested therap eutic range for standard coumadin (warfarin) therapy is an INR of 2.0-3.0. For high-risk patients (Mechanical Mitral Valve Prosthesis, etc.), the suggested prophylactic therapeutic range is an INR of 2.5-3.5. Blood BLOOD SPECIMEN / Unknown Lab Venipuncture / Unknown 12/21/2019 12:55 PM CDT 12/21/2019 1:16 PM CDT Grzegorz Mi MD LAB - COAGULATIO N ORDERABLES Performing Organization Address City/[facility] Co de Phone Number [address] [phone], [facility] [phone] * (ABNORMAL) CBC WITH DIFFERENTIAL (12/21/2019 12:55 PM CDT) Only the most recent of30 resultswithin the time period is included. WBC 7.6 3.5 - 10.5 10 3/uL 12/21/2019 1:22 PM CDT [facility] RBC 4.28(L) 4.30 - 5.70 10 6/uL 12/21/2019 1:22 PM [facility] Hemoglobin 11.2(L) 13.5 - 17.5 g/dL 12/21/2019 1: PM [facility] Hematocrit 35.2(L) 39.0 - 50.0 % 12/21/2019 1: PM [facility] MCV 82.2 81.0 - 97.0 fL 12/21/2019 1: PM [facility] MCH 26.2(L) 28.0 - 34.0 pg 12/21/2019 1: PM [facility] MCHC 31.8(L) 32.0 - 36.0 g/dL 12/21/2019 1: PM [facility] Platelet Count 203 150 - 400 10 3/uL 12/21/2019 1: PM [facility] RDW-SD 47.8 36.0 - 50.0 fL 12/21/2019 1: PM [facility] RDW-CV 16.6(H) 11.2 - 14.8 % 12/21/2019 1: PM [facility] MPV 9.9 9.3 - 12.8 fL 12/21/2019 1: PM [facility] nRBC Absolute 0.00 0 10 3/uL 12/21/2019 1: PM [facility] nRBC Auto 0.0 0 /100 WBC 12/21/2019 1: PM [facility] Neutrophils % 86.2(H) 35.0 - 70.0 % 12/21/2019 1: PM [facility] Lymphocytes % 6.8(L) 19.7 - 55.1 % 12/21/2019 1: PM [facility] Monocytes % 6.3 3.0 - 15.0 % 12/21/2019 1: PM [facility] Eosinophils % 0.3 0.0 - 6.0 % 12/21/2019 1: PM [facility] Basophil % 0.1 0.0 - 1.5 % 12/21/2019 1: PM [facility] Neutrophils Absolute 6.6 1.6 - 7.0 10 3/uL 12/21/2019 1:22 PM [facility] Lymphocyte Absolute 0.5(L) 0.8 - 2.9 10 3/uL 12/21/2019 1:22 PM CDT [facility] Monocytes Absolute 0.48 0.14 - 0.66 10 3/uL 12/21/2019 1:22 PM CDT [facility] Eosinophils Absolute 0.02 0.00 - 0.45 10 3/uL 12/21/2019 1:22 PM CDT [facility] Basophils Absolute 0.01 0.00 - 0.06 10 3/uL 12/21/2019 1:22 PM CDT [facility] Immature Granulocytes % 0.3 0.0 - 1.0 % 12/21/2019 1:22 PM CDT [facility] Blood BLOOD SPECIMEN / Unknown Lab Venipuncture / Unknown 12/21/2019 12:55 PM CDT 12/21/2019 1:16 PM CDT Grzegorz Mi MD LAB - HEMATOLOGY ORDERABLES [address] [address], [facility] [phone] * PREALBUMIN (12/21/2019 12:55 PM CDT) Prealbumin 25 16 - 45 mg/dL 12/21/2019 1:49 PM CDT [facility] Blood BLOOD SPECIMEN / Unknown Lab Venipuncture / Unknown 12/21/2019 12:55 PM CDT 12/21/2019 1:16 PM CDT Clair Ramirez MD LAB - CHEMISTRY ORD ERABLES [address] [address], [facility] [phone] * ALBUMIN BLOOD (12/21/2019 12:55 PM CDT) Albumin 3.6 3.4 - 5.0 g/dL 12/21/2019 1:49 PM CDT [facility] Blood BLOOD SPECIMEN / Unknown Lab Venipuncture / Unknown 12/21/2019 12:55 PM CDT 12/21/2019 1:16 PM CDT Clair Ramirez MD LAB - CHEMISTRY ORD ORI Performing Organization Address City/[facility]/ZIP Co de Phone Number [facility] [address] [place] [address], [place] [phone] * LACTIC ACID BLOOD (12/10/2019 5:51 PM CDT) Only the most recent of2 resultswithin the time period is included. [facility] Lactic Acid-Stat 1.2 0.5 - 2.0 mmol/L 12/10/2019 6:27 PM CDT [facility] Blood BLOOD SPECIMEN / Unknown Venipuncture / Unknown 12/10/2019 5:51 PM CDT 12/10/2019 6:01 PM CDT Johnathan Parrish MD LAB - CHEMISTRY CAYETANO VALDEZ Performing Organization Address City/[facility]/ZIP Co de Phone Number [address] [address], [place] [phone] * TYPE + SCREEN PANEL (12/10/2019 1:43 PM CDT) Only the most recent of7 resultswithin the time period is included. [facility] Antibody Screen NEG 12/10/2019 3:27 PM CDT [facility] ABO Rh AB POS 12/10/2019 3:27 PM CDT [facility] Comment:RCVD A+ RBCS. Blood Bank BLOOD SPECIMEN / Unknown Venipuncture / Unknown 12/10/2019 1:43 PM CDT 12/10/2019 2:07 PM CDT Johnathan Parrish MD LAB - BLOOD BANK ORD ORI Performing Organization Address City/[facility]/ZIP Co de Phone Number [facility] [address] [place] [address], [place] [phone] * APHERESIS/TRANSFUSION ORDER (12/05/2019 6:23 AM CDT) Only the most recent of3 resultswithin the time period is included. Narrative 12/05/2019 6:23 AM CDT Ordered by an unspecified provider. Scanned Document NURSING - VITAL SIGN S AND ASSESSMENT * CARDIAC EKG ORDER (12/04/2019 7:57 AM CDT) Narrative 12/04/2019 7:57 AM CDT Ordered by an unspecified provider. Scanned Document CARDIAC SERVICES ORD ERABLES * (ABNORMAL) GLUCOSE - POINT OF CARE (11/30/2019 1:40 PM CDT) Only the most recent of160 resultswithin the time period is included. Pathologist [facility] Glucose WB/POC 118(H) 70 - 115 mg/dL 11/30/2019 1:45 PM CDT [facility] Specimen Type Arterial/C apillary 11/30/2019 1:45 PM CDT [facility] Blood BLOOD SPECIMEN / Unknown 11/30/2019 1:40 PM CDT 11/30/2019 1:45 PM CDT Grzegorz Mi MD LAB - POINT OF C ARE ORDERABLES [facility] [address] [place] [phone], [facility] [phone] * SARS-COV-2 (COVID-19) RAPID (11/29/2019 11:15 AM CDT) Pathologist [facility] COVID-19 PCR Not detected Not detected 11/29/19 20 1:29 PM CDT [facility] Microbiology SPECIMEN FROM NASOPHARYNGEAL STRUCTURE / Unknown Collection / Unknown 11/29/2019 11:15 AM CDT 11/29/2019 11:23 AM CDT Narrative [facility] - 11/29/2019 1:29 PM CDT The Cepheid Xpert Xpress SARS_COV_2 has been authorized by the Food and Drug administration (FDA) under an Emergency Use Authorization (EUA). This test has been validated in accordance with the FDA's guidance document Policy for Diagnostic Testing in Laboratories Certified to perfom High Complexity Testing under CLIA prior to Emergency Use Authorization for Coronavirus Disease-2019 during the Public Health Emergency issued on April 23, 2019. FDA independent review of this validation is pending. This test is only authorized for the duration of the time the declaration that circumstances exsit justifying the authorization of emergency use of in vitro diagnostic tests for detection of SARS-COV-2 virus and/or diagnosis of COVID-19 infection under 564(b) (1) of the Act. 21 U.S.C. 360bbb-3 (b) (1), unless the authorization is terminated or revoked sooner. Fact Sheets for this EAU assay are available upon request. Rosalba Rdedy APRN-FIELD CASE MANAGER LAB - MICROBIOLOGY O RDERABLES [address] [address], [facility] [phone] * XR CHEST 1VW PORTABLE (11/24/2019 8:23 PM CDT) Only the most recent of2 resultswithin the time period is included. Anatomical Region Laterality Modality Chest Radiographic Kinsey ging 11/25/2019 7:37 AM CDT Impressions 11/25/2019 3:20 PM CDT FINDINGS/IMPRESSION: Lines and tubes: *Partial visualization of thoracolumbar spinal fusion hardware and multilevel vertebroplasty. *Interval removal of left-sided chest tube. Low lung volumes bilaterally with vascular crowding. Small left apical pneumothorax is demonstrated. Hazy opacity has developed in the left mid and lower lung field that may represent atelectasis and/or airspace disease. Trace left-sided pleural effusion, improved from prior. No right-sided pleural effusion. There is no right pneumothorax. The cardiomediastinal silhouette is normal. Left skin jose are again seen. Dictated by Tara Toledo MD (president & founder). I, Dr. LISSETTE ACUÑA M.D. have personally reviewed and interpreted this examination/study. This report was electronically signed by LISSETTE ACUÑA M.D. on 11/25/2019 3:20 PM . Narrative 11/25/2019 3:20 PM CDT EXAMINATION: XR CHEST 1VW PORTABLE HISTORY: S33.100A: Subluxation of lumbar vertebra, initial encounter COMPARISON: Chest x-ray dated 11/24/2019 at 11:46 a.m. Procedure Note Lissette Acuña MD - 11/25/2019 EXAMINATION: XR CHEST 1VW PORTABLE HISTORY: S33.100A: Subluxation of lumbar vertebra, initial encounter COMPARISON: Chest x-ray dated 11/24/2019 at 11:46 a.m. FINDINGS/IMPRESSION: Lines and tubes: *Partial visualization of thoracolumbar spinal fusion hardware and multilevel vertebroplasty. *Interval removal of left-sided chest tube. Low lung volumes bilaterally with vascular crowding. Small left apical pneumothorax is demonstrated. Hazy opacity has developed in the left mid and lower lung field that may represent atelectasis and/or airspace disease. Trace left-sided pleural effusion, improved from prior. No right-sided pleural effusion. There is no right pneumothorax. The cardiomediastinal silhouette is normal. Left skin jose are againseen. Dictated by Tara Toledo MD (president & founder). Dr. LISSETTE Chaudhari M.D. have personally reviewed and interpreted this examination/study. This report was electronically signed by LISSETET ACUÑA M.D. on 11/25/2019 3:20 PM . Boogie Romero MD DIAGNOSTIC IMAGING O RDERABLES * XR THORACOLUMBAR SPINE 2VW (11/24/2019 12:17 PM CDT) Anatomical Region Laterality Modality Spine Radiographic Kinsey ging 11/24/2019 1:02 PM CDT Impressions 11/24/2019 4:14 PM CDT FINDINGS/IMPRESSION: Postoperative changes of of posttreatment spinal fusion from T9 to the iliac bones with an expandable vertebral body cage extending from L1-L2 to L3-L4. There is no periprosthetic fracture. The overlying hardware obscures underlying spine. Cement is present at multiple pedicular screw tips. There are 2 additional screws in the right sacroiliac joint. Skin staple line coursing in the lateral abdominal wall and multiple metallic clips in the midline lower abdomen are seen. Dictated by Torsten Mejía MD (president & founder). Dr. LEILA Chaudhari have personally reviewed and interpreted this examination/study. This report was electronically signed by LEILA SINCLAIR on 11/24/2019 4:14 PM . Narrative 11/24/2019 4:14 PM CDT EXAMINATION: XR THORACOLUMBAR SPINE 2VW HISTORY: S33.100A: Subluxation of lumbar vertebra, initial encounter COMPARISON: CT lumbar spine dated 11/21/2019 Procedure Note Leila Sinclair MD - 11/24/2019 EXAMINATION: XR THORACOLUMBAR SPINE 2VW HISTORY: S33.100A: Subluxation of lumbar vertebra, initial encounter COMPARISON: CT lumbar spine dated 11/21/2019 FINDINGS/IMPRESSION: Postoperative changes of of posttreatment spinal fusion from T9 to the iliac bones with an expandable vertebral body cage extending from L1-L2to L3-L4. There is no periprosthetic fracture. The overlying hardware obscures underlying spine. Cement is present at multiple pedicular screw tips. There are 2 additional screws in the right sacroiliac joint. Skin staple line coursing in the lateral abdominal wall and multiple metallic clips in the midline lower abdomen are seen. Dictated by Torsten Mejía MD (president & founder). I, Dr. LEILA SINCLAIR have personally reviewed and interpreted this examination/study. This report was electronically signed by LEILA SINCLAIR on 11/24/2019 4:14PM . Madison Castillo MD DIAGNOSTIC IMAGING O RDERABLES * XR CHEST 2VW (11/24/2019 12:16 PM CDT) Anatomical Region Laterality Modality Chest Radiographic Kinsey ging 11/24/2019 1:05 PM CDT Impressions 11/24/2019 4:15 PM CDT FINDINGS/IMPRESSION: Lines and tubes: *Partial visualization of thoracolumbar spine fusion hardware. *Interval placement of left-sided chest tube, which terminates in the left lung. *Interval removal of right subclavian central venous catheter. Lung volumes are small with vascular crowding. Trace left-sided pleural effusion with associated atelectasis/airspace disease. No right-sided pleural effusion. There is no pneumothorax. The cardiomediastinal silhouette is normal. Dictated by Tara Toledo MD (president & founder). I, Dr. LEILA SHOELA have personally reviewed and interpreted this examination/study. This report was electronically signed by LEILA SINCLAIR on 11/24/2019 4:15 PM . Narrative 11/24/2019 4:15 PM CDT EXAMINATION: XR CHEST 2VW HISTORY: S33.100A: Subluxation of lumbar vertebra, initial encounter COMPARISON: Chest x-ray dated 11/12/2019. Procedure Note Leila Sinclair MD - 11/24/2019 EXAMINATION: XR CHEST 2VW HISTORY: S33.100A: Subluxation of lumbar vertebra, initial encounter COMPARISON: Chest x-ray dated 11/12/2019. FINDINGS/IMPRESSION: Lines and tubes: *Partial visualization of thoracolumbar spine fusion hardware. *Interval placement of left-sided chest tube, which terminates in theleft lung. *Interval removal of right subclavian central venous catheter. Lung volumes are small with vascular crowding. Trace left-sided pleural effusion with associated atelectasis/airspace disease. No right-sided pleural effusion. There is no pneumothorax. The cardiomediastinal silhouette is normal. Dictated by Tara Toledo MD (president & founder). Dr. LEILA Chaudhari have personally reviewed and interpreted this examination/study. This report was electronically signed by LEILA SINCLAIR on 11/24/2019 4:15PM . Sai Wilkinson MD DIAGNOSTIC IMAGING O RDERABLES * EKG 12-LEAD (11/22/2019 2:34 AM CDT) Only the most recent of3 resultswithin the time period is included. Ventricular Rate 108 BPM [facility] Atrial Rate 108 BPM [facility] P-R Interval 150 ms [facility] QRS Duration ms 82 ms [facility] Q-T Interval ms 332 ms [facility] QTC Calculation (Bezet) 444 ms [facility] Calculated P Hiller 40 degrees [facility] Calculated R Hiller 53 degrees [facility] Calculated T Hiller 59 degrees H MUSE Interpretation EKG SINUS TACHYCARDIA LOW VOLTAGE QRS T WAVE ABNORMALITY, CONSIDER ANTEROLATERAL ISCHEMIA ABNORMAL ECG NO PREVIOUS ECGS AVAILABLE Confirmed by Hossein Nagel ([id number]) on 12/17/2019 11:55:48 AM [facility] 11/22/2019 2:34 AM CDT 12/17/2019 11:55 AM CDT Davey Marcum BAR HELPER-FIELD CASE MANAGER ECG ORDERABLES [facility] * (ABNORMAL) BLOOD GASES ART COMPLETE [facility] OR (11/21/2019 11:56 PM CDT) Only the most recent of10 resultswithin the time period is included. pH Arterial 7.46(H) 7.35 - 7.45 11/22/2019 12:06 AM [facility] pCO2 Arterial 30(L) 35 - 45 mmHg 11/22/2019 12:06 AM [facility] pO2 Arterial 131(H) 71 - 95 mmHg 11/22/2019 12:06 AM [facility] HCO3 Arterial 20.6(L) 22.0 - 26.0 mmol/L 11/22/2019 12:06 AM [facility] TCO2 Arterial 21.5(L) 25.0 - 29.0 mmol/L 11/22/2019 12:06 AM [facility] Base Excess Arterial -2.5(L) -2.0 - 2.0 mmol/L 11/22/2019 12:06 AM [facility] Hemoglobin Arterial 9.7(L) 13.5 - 17.5 g/dL 11/22/2019 12:06 AM [facility] Oxyhemoglobin Arterial 97.5 95.0 - 100.0 % 11/22/2019 12:06 AM [facility] Carboxyhemoglobin 0.3 0.0 - 3.0 % 11/22/2019 12:06 AM [facility] Methemoglobin 0.0 0.0 - 2.0 % 11/22/2019 12:06 AM [facility] FI O2 Arterial 44.0 % 11/22/2019 12:06 AM [facility] Ionized Calcium Whole Blood 1.06 mmol/L 11/22/2019 12:06 AM [facility] Adjusted Ionized Calcium 1.09(L) 1.19 - 1.34 mmol/L 11/22/2019 12:06 AM CDT [facility] Sodium Whole Blood 132(L) 135 - 145 mmol/L 11/22/2019 12:06 AM CDT [facility] Potassium Whole Blood 4.4 3.5 - 5.5 mmol/L 11/22/2019 12:06 AM CDT [facility] Chloride Whole Blood 103 101 - 111 mmol/L 11/22/2019 12:06 AM CDT [facility] Glucose Whole Blood 159(H) 70 - 110 mg/dL 11/22/2019 12:06 AM T [facility] Lactic Acid Whole Blood 1.1 0.5 - 3.4 mmol/L 11/22/2019 12:06 AM T [facility] Blood ARTERIAL BLOOD SPECIMEN / Unknown Venipuncture / Unknown 11/21/2019 11:56 PM CDT 11/22/2019 12:03 AM CDT James Chairez MD LAB - BLOOD GASES OR DERABLES [facility] [address] [place] [phone], [facility] [phone] * CT LUMBAR SPINE WO CONTRAST (11/21/2019 10:03 PM CDT) Only the most recent of3 resultswithin the time period is included. Anatomical Region Laterality Modality Spine Computed Tomogra phy 11/22/2019 10:2 8 AM CDT Impressions 11/22/2019 10:36 AM CDT IMPRESSION: Postsurgical changes. Intact hardware in expected alignment. The spinal canal is completely obscured at the surgical levels. This report was electronically signed by VINCENZO SOLOMON on 11/22/2019 10:36 AM . Narrative 11/22/2019 10:[address] scan of the lumbar spine without intravenous contrast INDICATION: Status post surgery COMPARISON: CT lumbar spine from 11/13/2019 and MRI lumbar spine from 11/02/2019 was reviewed. TECHNIQUE: CT scan of the lumbar spine was performed without intravenous contrast according to standard protocol. FINDINGS: The patient is now status post vertebral body cage placement extending from L1-2 to L3-4 disc level. A left lateral fixation plate is also in place. The hardware is intact and in expected alignment. At the inferior aspect of the vertebral body cage, the posterior margin of the metallic cage projects slightly dorsal to the cortex of L4 vertebral body. Extensive posterior fixation hardware extending from the thoracic spine to the pelvis is partially visualized. Intervertebral disc spacers are again seen at L4-5 and L5-S1. The included hardware is intact and in expected anatomic alignment. There are laminectomies from L1 to upper sacrum as before. Vertebral body cement is again seen in multiple vertebrae. There is significant artifact from this metallic hardware. The spinal canal is completely obscured at the surgical levels. No large fluid collection is seen in the overlying dorsal soft tissues. The lumbar lordosis is maintained. There is stable 3 to 4 mm anterolisthesis of L5 relative to S1. Diffuse osseous demineralization is noted. Procedure Note Vincenzo Solomon MD - 11/22/2019 CT scan of the lumbar spine without intravenous contrast INDICATION: Status post surgery COMPARISON: CT lumbar spine from 11/13/2019 and MRI lumbar spine from 11/02/2019 was reviewed. TECHNIQUE: CT scan of the lumbar spine was performed without intravenous contrast according to standard protocol. FINDINGS: The patient is now status post vertebral body cage placement extending from L1-2 to L3-4 disc level. A left lateral fixation plate is also in place. The hardware is intact and in expected alignment. At the inferior aspect of the vertebral body cage, the posterior margin of the metallic cage projects slightly dorsal to the cortex of L4 vertebral body. Extensive posterior fixation hardware extending from the thoracic spineto the pelvis is partially visualized. Intervertebral disc spacers areagain seen at L4-5 and L5-S1. The included hardware is intact and in expected anatomic alignment. There are laminectomies from L1 to upper sacrum as before. Vertebral body cement is again seen in multiple vertebrae. There is significant artifact from this metallic hardware. The spinal canal is completely obscured at the surgical levels. No large fluid collection is seen in the overlying dorsal soft tissues. The lumbar lordosis is maintained. There is stable 3 to 4 mm anterolisthesis of L5 relative to S1. Diffuse osseous demineralizationis noted. IMPRESSION: Postsurgical changes. Intact hardware in expected alignment. The spinal canal is completely obscured at the surgical levels. This report was electronically signed by VINCENZO SOLOMON on 11/22/2019 10:36 AM . Amaury Willams MD CT ORDERABLES * FL SIMÓN SURGERY (11/21/2019 6:10 PM CDT) Only the most recent of3 resultswithin the time period is included. Narrative [facility] - 11/21/2019 6:12 PM CDT Fluoroscopy was used for this exam in the OR. Please see the Operative report. Grzegorz Mi MD FLUOROSCOPY CAYETANO VALDEZ [facility] * TRANSFUSE RED BLOOD CELL LEUKOREDUCED UNIT(S) (11/21/2019 5:33 PM CDT) Grzegorz Mi MD NURSING - BLOOD PROD TRANSFUSION * TRANSFUSE RED BLOOD CELL LEUKOREDUCED UNIT(S) (11/21/2019 2:32 PM CDT) Grzegorz Mi MD NURSING - BLOOD PROD TRANSFUSION * ARTERIAL LINE PERFORMABLE (11/21/2019 1:07 PM CDT) Narrative Kvng Fletcher DO - 11/21/2019 1:07 PM CDT Kvng Fletcher DO 11/21/2019 1:08 PM Arterial Line Placement Procedure Note Patient Location: OR. Procedure: Arterial Line ([id number]). Procedure Section Indications: continuous blood pressure monitoring and blood sampling needed. Consent: informed consent was obtained for the procedure. Skin Prep: Chloraprep. Location: left radial. Site Identification: palpation. Sterile Technique: cap and mask. Gauge: 20. Catheter Length: 1 and 3/4 inch. Catheter Type: Arrow. Seldinger Technique Used? Yes Number of Attempts: 3. Line Secured with: Tegaderm and tape. Procedure Tolerance: performed while patient under general anesthesia. Events: none. Procedure Start Time: 11/21/2019 12:17 PM. Staff Section Anesthesia Provider: Rupali Russell MD, Performed the procedure Provider #1: Kvng Fletcher DO. Additional Comments: Resident attempted twice. Attending was successful on the third attempt. No complications. Secured with tape and tegaderm. Rupali Russell MD GENERAL ANESTHESIA O RDERABLES * ETT LINE PERFORMABLE (11/21/2019 12:56 PM CDT) Narrative Kvng Fletcher DO - 11/21/2019 12:56 PM CDT Kvng Fletcher DO 11/21/2019 12:58 PM Endotracheal Tube Placement: Patient Location: OR. Intubation Event Date/Time: 11/21/2019 11:58 AM Procedure: intubation ([id number]). Procedure Section: Sedation: under general anesthesia. Indications for Airway Management: anesthesia Induction: standard IV Patient Position: sniffing and supine Mask Ventilation: easy. Blade Type: Video Blade Size: 4 Laryngoscopy View: grade 1 (full cords) Intubation Adjuncts: stylet and video laryngoscope Tube: endotracheal tube Placement: oral Tube type: cuff - inflated Tube Size (MM): 8 Depth of Insertion (CM): 23 Measured From: teeth Cuff Inflated With: air Number of Attempts: 1. Placement Verified By: direct visualization, bilateral breath sounds, chest auscultation and CO2 monitor Tube secured with: adhesive tape. Difficult Airway? No. Procedure Start Time: 11/21/2019 11:58 AM. Staff Section Anesthesia Provider: Rupali Russell MD Provider #1: Kvng Fletcher DO, Performed the procedure. Rupali Russell MD GENERAL ANESTHESIA O RDERABLES * SARS-COV-2 (COVID-19) IN HOUSE (11/20/2019 5:53 PM CDT) Only the most recent of2 resultswithin the time period is included. COVID-19 PCR Not detected Not detected, Invalid 11/21/2019 4:11 AM CDT [facility] Microbiology SPECIMEN FROM NASOPHARYNGEAL STRUCTURE / Unknown Collection / Unknown 11/20/2019 5:53 PM CDT 11/20/2019 6:17 PM CDT Narrative [facility] - 11/21/2019 4:11 AM CDT This nucleic acid amplification assay performance was validated by [facility]. This test has been authorized by the Food and Drug administration (FDA)under an Emergency Use Authorization (EUA). This test has been validated in accordance with the FDA's guidance document Policy for Diagnostic Testing in Laboratories Certified to perform High Complexity Testing under CLIA prior to Emergency Use Authorization for Coronavirus Disease-2019 during the Public Health Emergency issued on April 23, 2019. FDA independent review of this validation is pending. This test is only authorized for the duration of time the declaration that circumstances exist justifying the authorization of emergency use of in vitro diagnostic tests for detection of SARS-CoV-2 virus and/or diagnosis of COVID-19 infection under section 564(b)(1) of the Act, 21 U.S.C 360bbb-3 (b)(1), unless the authorization is terminated or revoked sooner. Cesar Guillory MD LAB - MICROBI OLOGY ORDERABLES Performing Organization Address City/[facility]/ZIP Co de Phone Number [facility] [address] [place] [address], [facility] [phone] * TRANSFUSE RED BLOOD CELL LEUKOREDUCED UNIT(S) (11/20/2019 1:53 AM CDT) Dallas Deal MD NURSING - BLOOD PROD TRANSFUSION * PREPARE (CROSSMATCH) RBC UNIT(S), 1 Units (11/19/2019 8:56 PM CDT) Only the most recent of7 resultswithin the time period is included. Unit Description N/A [facility] Blood Bank BLOOD SPECIMEN / Unknown 11/19/2019 8:56 PM CDT 11/19/2019 9:06 PM CDT James Chairez MD LAB - BLOOD BANK ORD ERABLES Performing Organization Address City/[facility]/ZIP Co de Phone Number [facility] [address] [place] [address], [place] [phone] * CT THORACIC SPINE WO CONTRAST (11/13/2019 2:12 PM CDT) Anatomical Region Laterality Modality Spine Computed Tomogra phy 11/14/2019 7:27 AM CDT Impressions 11/14/2019 7:46 AM CDT IMPRESSION: Expected postsurgical changes status post extension of spinal fixation hardware, now involving T9 to the pelvis. Interval near complete resolution of the subluxation seen at L2-3 on the prior study. Evaluation of the spinal canal contents is significantly limited. However, no large volume acute hemorrhage is noted. Scattered hyperdense material is seen within the spinal canal at L2-3 disc level, possibly representing residual bone fragments. This report was electronically signed by VINCENZO SOLOMON on 11/14/2019 7:46 AM . Narrative 11/14/2019 7:46 AM CDT EXAMINATION: CT of the thoracic spine CT of the lumbar spine HISTORY: S33.100A: Subluxation of lumbar vertebra, initial encounter TECHNIQUE: CT images of the thoracic and lumbar spines were obtained without intravenous contrast according to standard protocol. COMPARISON: MRI of the lumbar spine from 11/02/2019, CT scan of the abdomen and pelvis from 11/13/2019 performed at another institution, spine radiographs from 03/08/2019 FINDINGS: The spine numbering system used in this report is in keeping with the system used in prior reports. The last well-formed disc is labeled as L5-S1. Since the prior MRI, there has been interval extension of the posterior fixation hardware, now extending from T9 to the pelvis. Bilateral transpedicular screws (except at L1 and L2) and paired interconnecting rods are seen. Evaluation of the hardware is limited due to motion and significant streak artifact. However, the hardware appears grossly intact and in expected alignment without spinal canal or foraminal encroachment. There is no periprosthetic lucency or fracture. Intervertebral disc spacers are seen at L3-4 and L4-5, in expected location. Postsurgical superficial and deep soft tissues changes are seen with surgical drains in place. The significantly eroded L2 and L3 vertebrae are again seen, grossly similar in morphology to prior study. However, the significant subluxation at this level seen previously has been surgically treated with slight anterolisthesis of the residual L2 vertebral body. Scattered hyperdense material is seen within the spinal canal at L2-3 disc level, possibly representing residual bone fragments. The lumbar lordosis is otherwise maintained. 3 mm anterolisthesis of L5 relative to lumbarized S1 is again seen. Bilateral laminectomy of L3 and partial right laminectomy of L5 is again seen. There is diffuse osseous demineralization. Vertebral body cement material is seen in nearly all these vertebrae without extravasation outside the bone. Evaluation of the spinal canal contents is significantly limited due to metallic streak artifact as well as CT technique. No large volume acute hemorrhage is seen within the spinal canal or in the soft tissue surgical bed. There is no osseous spinal canal stenosis. Significant vascular calcification of the internal iliac arteries is seen. Procedure Note Vincenzo Solomon MD - 11/14/2019 EXAMINATION: CT of the thoracic spine CT of the lumbar spine HISTORY: S33.100A: Subluxation of lumbar vertebra, initial encounter TECHNIQUE: CT images of the thoracic and lumbar spines were obtained without intravenous contrast according to standard protocol. COMPARISON: MRI of the lumbar spine from 11/02/2019, CT scan of theabdomen and pelvis from 11/13/2019 performed at another institution, spine radiographs from 03/08/2019 FINDINGS: The spine numbering system used in this report is in keeping with the system used in prior reports. The last well-formed disc is labeled as L5-S1. Since the prior MRI, there has been interval extension of the posterior fixation hardware, now extending from T9 to the pelvis. Bilateral transpedicular screws (except at L1 and L2) and paired interconnecting rods are seen. Evaluation of the hardware is limited due to motion and significant streak artifact. However, the hardware appears grosslyintact and in expected alignment without spinal canal or foraminalencroachment. There is no periprosthetic lucency or fracture. Intervertebral disc spacers are seen at L3-4 and L4-5, in expected location. Postsurgical superficial and deep soft tissues changes are seen with surgical drainsin place. The significantly eroded L2 and L3 vertebrae are again seen, grossly similar in morphology to prior study. However, the significantsubluxation at this level seen previously has been surgically treated with slight anterolisthesis of the residual L2 vertebral body. Scattered hyperdense material is seen within the spinal canal at L2-3 disc level, possibly representing residual bone fragments. The lumbar lordosis is otherwise maintained. 3 mm anterolisthesis of L5 relative to lumbarized S1 is again seen. Bilateral laminectomy of L3 and partial right laminectomy of L5 is again seen. There is diffuse osseous demineralization. Vertebral body cement material is seen in nearly all these vertebrae without extravasation outside the bone. Evaluation of the spinal canal contents is significantly limited due to metallic streak artifact as well as CT technique. No large volume acute hemorrhage is seen within the spinal canal or in the soft tissuesurgical bed. There is no osseous spinal canal stenosis. Significant vascular calcification of the internal iliac arteries isseen. IMPRESSION: Expected postsurgical changes status post extension of spinal fixation hardware, now involving T9 to the pelvis. Interval near complete resolution of the subluxation seen at L2-3 on the prior study.Evaluation of the spinal canal contents is significantly limited. However, no large volume acute hemorrhage is noted. Scattered hyperdense material is seen within the spinal canal at L2-3 disc level, possibly representingresidual bone fragments. This report was electronically signed by VINCENZO SOLOMON on 11/14/2019 7:46AM . Rupali Esteban MD CT ORDERABLES * (ABNORMAL) BLOOD GASES ARTERIAL (11/12/2019 7:09 PM [facility]) Only the most recent of2 resultswithin the time period is included. pH Arterial 7.45 7.35 - 7.45 11/12/2019 7:20 PM [facility] pCO2 Arterial 32(L) 35 - 45 mmHg 11/12/2019 7:20 PM [facility] pO2 Arterial 80 71 - 95 mmHg 11/12/2019 7:20 PM [facility] HCO3 Arterial 21.8(L) 22.0 - 26.0 mmol/L 11/12/2019 7:20 PM [facility] TCO2 Arterial 22.8(L) 25.0 - 29.0 mmol/L 11/12/2019 7:20 PM [facility] Base Excess Arterial -1.8 -2.0 - 2.0 mmol/L 11/12/2019 7:20 PM [facility] Hemoglobin Arterial 7.9(L) 13.5 - 17.5 g/dL 11/12/2019 7:20 PM [facility] Oxyhemoglobin Arterial 95.1 95.0 - 100.0 % 11/12/2019 7:20 PM [facility] Carboxyhemoglobin 0.2 0.0 - 3.0 % 11/12/2019 7:20 PM [facility] Methemoglobin 0.1 0.0 - 2.0 % 11/12/2019 7:20 PM [facility] FI O2 Arterial 4.0 % 11/12/2019 7:20 PM [facility] Comment:L NC Blood, arterial ARTERIAL BLOOD SPECIMEN / Unknown Arterial Puncture / Unknown 11/12/2019 7:09 PM CDT 11/12/2019 7:16 PM CDT Sai Wilkinson MD LAB - BLOOD GASES OR DERABLES [facility] [address] [place] [address], [facility] [phone] * XR CHEST PORTABLE/BEDSIDE (11/12/2019 8:56 AM CDT) Anatomical Region Laterality Modality Chest Radiographic Kinsey ging 11/12/2019 1:21 PM CDT Impressions 11/12/2019 1:47 PM CDT FINDINGS/IMPRESSION: A right subclavian approach CVC extends into the right IJ vein, unchanged from prior. Thoracolumbar fusion instrumentation is redemonstrated, unchanged. Lung volumes are diminished bilaterally. There is no focal consolidation, pleural effusion, or pneumothorax. The cardiac silhouette is normal. The mediastinal silhouette is normal. Findings d/w Zayra Oniel by Dr. Jacobsen at 1332 hours on 11/12/2019 Report dictated by Gerson Jacobsen MD (president & founder). I, Dr. RUTHY DUONG have personally reviewed and interpreted this examination/study. This report was electronically signed by RUTHY DUONG on 11/12/2019 1:47 PM . Narrative 11/12/2019 1:47 PM CDT EXAMINATION: XR CHEST 1VW, 11/12/2019 8:56 AM HISTORY: S33.100A: Subluxation of lumbar vertebra, initial encounter COMPARISON: Chest radiograph 11/11/2019 Procedure Note Ruthy Duong DO - 11/12/2019 EXAMINATION: XR CHEST 1VW, 11/12/2019 8:56 AM HISTORY: S33.100A: Subluxation of lumbar vertebra, initial encounter COMPARISON: Chest radiograph 11/11/2019 FINDINGS/IMPRESSION: A right subclavian approach CVC extends into the right IJ vein,unchanged from prior. Thoracolumbar fusion instrumentation is redemonstrated, unchanged. Lung volumes are diminished bilaterally. There is no focalconsolidation, pleural effusion, or pneumothorax. The cardiac silhouette is normal. The mediastinal silhouette is normal. Findings d/w Zayra Oniel by Dr. Jacobsen at 1332 hours on 11/12/2019 Report dictated by Gerson Jacobsen MD (president & founder). IDr. RUTHY have personally reviewed and interpreted this examination/study. This report was electronically signed by RUTHY DUONG on 11/12/2019 1:47 PM . Dallas Deal MD DIAGNOSTIC IMAGI NG ORDERABLES * CT HEAD WO CONTRAST (11/12/2019 8:26 AM CDT) Only the most recent of2 resultswithin the time period is included. Anatomical Region Laterality Modality Head Computed Tomogra phy 11/12/2019 9:31 AM CDT Impressions 11/12/2019 4:16 PM CDT IMPRESSION: No acute intracranial hemorrhage, midline shift, or significant mass effect. Report dictated by Gerson Jacobsen MD (president & founder). IDr. LINDEN have personally reviewed and interpreted this examination/study. This report was electronically signed by LINDEN BROWNE on 11/12/2019 4:16 PM . Narrative 11/12/2019 4:16 PM CDT EXAMINATION: CT OF THE HEAD WITHOUT CONTRAST HISTORY: S33.100A: Subluxation of lumbar vertebra, initial encounter TECHNIQUE: CT of the head was performed without contrast according to standard protocol. COMPARISON: No prior study is available for comparison at the time of this dictation. FINDINGS: No acute intracranial hemorrhage or extra-axial fluid collection. There is mild to moderate cerebral volume loss with associated ex vacuo ventricular dilatation. The basilar cisterns are patent. No mass effect or midline shift is seen. The martinez-white matter differentiation is normal. Periventricular white matter hypoattenuation is indicative of chronic small vessel ischemic disease. There is vascular calcification of the carotid siphons. There is mild mucosal thickening and a small mucus retention cysts in the left maxillary sinus. The paranasal sinuses, and mastoid air cells otherwise are clear. The patient is status post bilateral cataract extraction. No acute fracture is identified. Procedure Note Linden Browne MD - 11/12/2019 EXAMINATION: CT OF THE HEAD WITHOUT CONTRAST HISTORY: S33.100A: Subluxation of lumbar vertebra, initial encounter TECHNIQUE: CT of the head was performed without contrast according to standard protocol. COMPARISON: No prior study is available for comparison at the time ofthis dictation. FINDINGS: No acute intracranial hemorrhage or extra-axial fluid collection. Thereis mild to moderate cerebral volume loss with associated ex vacuoventricular dilatation. The basilar cisterns are patent. No mass effect or midline shift is seen. The martinez-white matter differentiation is normal. Periventricular white matter hypoattenuation is indicative of chronic small vessel ischemic disease. There is vascular calcification of the carotid siphons. There is mild mucosal thickening and a small mucus retention cysts in the left maxillary sinus. The paranasal sinuses, and mastoid air cells otherwise are clear. The patient is status post bilateral cataract extraction. No acute fracture is identified. IMPRESSION: No acute intracranial hemorrhage, midline shift, or significant mass effect. Report dictated by Gerson Jacobsen MD (president & founder). I, Dr. LINDEN BROWNE have personally reviewed and interpreted this examination/study. This report was electronically signed by LINDEN BROWNE on 11/12/2019 4:16 PM . Dallas Deal MD CT ORDERABLES * FL OARM SURGERY (11/11/2019 6:36 PM CDT) Narrative [facility] - 11/11/2019 6:38 PM CDT Fluoroscopy was used for this exam in the OR. Please see the Operative report. Grzegorz Mi MD FLUOROSCOPY CAYTEANO VALDEZ [facility] * TRANSFUSE RED BLOOD CELL LEUKOREDUCED ML(S) (11/11/2019 12:42 PM CDT) James Chairez MD NURSING - BLOOD PROD TRANSFUSION * CENTRAL LINE PERFORMABLE (11/11/2019 8:55 AM CDT) Narrative James Chairez MD - 11/11/2019 8:55 AM CDT James Chairez MD 11/11/2019 8:56 AM Central Line Placement Procedure Note/LDA Patient Location: OR. Procedure: central line > 5yr ([id number]). Procedure Section: Indications: IV access and CVP monitoring. Patient Sedated? Yes Sedation Type: general anesthesia Patient Position: Trendelenburg Site: subclavian Skin Prep: Chloraprep. Local Anesthetic Used? No Site Identification: palpation. Seldinger Technique Used? Yes Intravenous Verification: all ports aspirated/flushed easily. Lumens: triple lumen Port Insertion: guidewire removed intact, all ports aspirated/flushed, sutured in place, biopatch applied and dressing applied. Number of Attempts: 3. Procedure Tolerance: tolerated well Maximal Sterile Barriers: Cap, mask, sterile gloves, a large sterile sheet, hand hygiene, and chlorhexidine for cutaneous antisepsis (6030F) Procedure Start Time: 11/11/2019 8:35 AM. Procedure End Time: 11/11/2019 8:45 AM. Procedure Total Time: 10 minutes. Staff Section Anesthesia Provider: James Chairez MD, Performed the procedure James Chairez MD GENERAL ANESTHESIA O RDERABLES * ARTERIAL LINE PERFORMABLE (11/11/2019 8:47 AM CDT) Jim Bob APRN-CRNA (Nick) - 11/11/2019 8:47 AM CDT Jim Sandy)DEMETRIO 11/11/2019 8:51 AM Arterial Line Placement Procedure Note Patient Location: OR. Procedure: Arterial Line ([id number]). Procedure Section Indications: continuous blood pressure monitoring. Patient Sedated? No Skin Prep: Chloraprep. Location: left radial. Sterile Technique: cap, mask, sterile gloves and small sterile fenestrated drape. Gauge: 20. Catheter Length: 1 and 3/4 inch. Catheter Type: Arrow. Seldinger Technique Used? Yes Number of Attempts: 2. Line Secured with: Tegaderm. Procedure Tolerance: performed while patient under general anesthesia. Events: none. Procedure Start Time: 11/11/2019 8:40 AM. Staff Section Anesthesia Provider: Jim Sandy APRN-CRNA (Nick), Performed the procedure James Chairez MD GENERAL ANESTHESIA O RDERABLES * IV PLACEMENT PERFORMABLE (11/11/2019 8:43 AM CDT) Jim Bob APRN-CRNA (Nick) - 11/11/2019 8:43 AM CDT Jim Sandy APRN-CRNA (Nick) 11/11/2019 8:45 AM Peripheral IV Line Placement: Procedure: IV start ([id number]). Procedure Section: Skin Prep: Chloraprep. Orientation: left Location: wrist Local Anesthetic Used? No Brand Name: karina. Catheter Gauge: 18 Catheter Length (in): 1.25 Number of Attempts: 1. Procedure Tolerance: performed while patient under general anesthesia. Procedure Start Time: 11/11/2019 8:34 AM. Staff Section Anesthesia Provider: Keeley Rowan APRN-CRNA, Performed the procedure James Chairez MD GENERAL ANESTHESIA O SAMANTHA * ETT LINE PERFORMABLE (11/11/2019 8:30 AM CDT) Jim Bob)DEMETRIO - 11/11/2019 8:30 AM CDT Jim Sandy)DEMETRIO 11/11/2019 8:43 AM Endotracheal Tube Placement: Patient Location: OR. Intubation Event Date/Time: 11/11/2019 8:27 AM Procedure: intubation (70361). Procedure Section: Sedation: under general anesthesia. Indications for Airway Management: anesthesia Procedure pretreatments used? No Induction: modified rapid sequence Patient Position: sniffing Mask Ventilation: easy. Blade Type: Video (cmac) Blade Size: 4 Laryngoscopy View: grade 1 (full cords) Intubation Adjuncts: stylet Tube: endotracheal tube Placement: oral Tube type: cuff - inflated Tube Size (MM): 8 Depth of Insertion (CM): 23 Measured From: lips Cuff volume (mL): 8 Ventilation between attempts: No. Placement Verified By: direct visualization, bilateral breath sounds and CO2 monitor Tube secured with: adhesive tape. Dentition unchanged? Yes Difficult Airway? No. Procedure Start Time: 11/11/2019 8:27 AM. Staff Section Anesthesia Provider: Jim Sandy APRN-CRNA (Nick), Performed the procedure James Chairez MD GENERAL ANESTHESIA O SAMANTHA * RETYPE PATIENT (11/11/2019 4:49 AM CDT) ABO 11/11/2019 6:30 AM CDT [facility] Rh Type 11/11/2019 6:30 AM CDT [facility] Typem 11/11/2019 6:30 AM CDT [facility] Interpretation 11/11/2019 6:30 AM CDT [facility] Blood BLOOD SPECIMEN / Unknown Venipuncture / Unknown 11/11/2019 4:49 AM CDT 11/11/2019 5:08 AM CDT Narrative [facility] - 11/11/2019 6:30 AM CDT Re-type confirmed per [facility] Blood Bank policies & procedures. Results documented in department. Provider Unknown LAB - BLOOD BANK ORD ERABLES [facility] [address] [place] [address], [place] [phone] * PREPARE PLATELET PHERESIS UNIT(S), 2 Units (11/10/2019 12:24 PM CDT) Unit Description N/A [facility] Blood Bank BLOOD SPECIMEN / Unknown 11/10/2019 12:24 PM CDT 11/10/2019 12:33 PM CDT Grzegorz Mi MD LAB - BLOOD BANK ORDERABLES Performing Organization Address City/[facility]/ZIP Co de Phone Number [facility] [address] [place] [address], [place] [phone] * PREPARE FFP UNIT(S), 1 Units (11/10/2019 12:24 PM CDT) Unit Description N/A [facility] Blood Bank BLOOD SPECIMEN / Unknown 11/10/2019 12:24 PM CDT 11/10/2019 12:33 PM CDT Grzegorz Mi MD LAB - BLOOD BANK ORDERABLES Performing Organization Address [facility]/ZIP Co de Phone Number [facility] [address] [place] [address], [place] [phone] * (ABNORMAL) C-REACTIVE PROTEIN SENSITIVE (11/04/2019 10:42 AM CDT) Pathologist [facility] C-Reactive Protein High Sensitivity 7.2(H) <=3.0 mg/L 11/07/2019 8:06 AM CDT [facility] ([facility]) Comment: INTERPRETIVE INFORMATION: CRP, High Sensitivity Patients with higher hs-CRP concentrations are more likely to develop stroke, myocardial infarction, and severe peripheral vascular disease. CRP is a nonspecific marker of inflammation and a variety of conditions other than atherosclerosis may cause elevated concentrations. If the first result is greater than 3.0 mg/L, recommend repeating test at least 2 weeks later in a metabolically stable state, free of infection or acute illness. The lower of the two results should be used to determine the patient's risk. Significantly decreased CRP values may result in specimens from patients treated with carboxypenicillins. hs-CRP results are used to assign risk as follows (Clin Chem 2009;55:378-84): less than 1.0 mg/L .... low risk 1.0 - 3.0 mg/L ........ average risk 3.1 - 9.9 mg/L ........ high risk greater than 9.9 mg/L . very high risk Performed By: [facility] [address] [place] [address] Privacy Compliance Manager: Azalea Khan MD Blood BLOOD SPECIMEN / Unknown Lab Venipuncture / Unknown 11/04/2019 10:42 AM CDT 11/04/2019 12:30 PM CDT Amaury Willams MD LAB - CHEMISTRY CAYETANO VALDEZ Performing Organization Address City/[facility]/ZIP Co de Phone Number [facility]) [address] * ERYTHROCYTE SEDIMENTATION RATE (11/04/2019 10:42 AM CDT) Pathologist [facility] Erythrocyte Sedimentation Rate Red Budergren 11 0 - 20 MM/HR 11/04/2019 11:53 AM CDT [facility] Blood BLOOD SPECIMEN / Unknown Lab Venipuncture / Unknown 11/04/2019 10:42 AM CDT 11/04/2019 11:28 AM CDT Amaury Willams MD LAB - HEMATOLOGY ORD ERABLES [facility] [address] [place] [address], [facility] [phone] * MRI LUMBAR SPINE WO CONTRAST (11/02/2019 2:44 AM CDT) Only the most recent of2 resultswithin the time period is included. Anatomical Region Laterality Modality Spine Magnetic Resonan ce 11/02/2019 8:12 AM CDT Impressions 11/02/2019 11:59 AM CDT IMPRESSION: 1. Retrolisthesis of L2 on L3 with posterior distraction of the thoracic and upper lumbar spine as compared to lower lumbar spine is similar to outside CT abdomen and pelvis, but it is new from the previous radiographic examination in February 2019. There is no evidence of marrow edema or interval changes in the resorbed anterior and inferior navarro and wedge-shaped appearance of L2 vertebral body or interval changes in the height of L3 vertebral body. There is stretching of anterior longitudinal ligament and bulging of the posterior longitudinal ligament. The CT images favor a small epidural hematoma in ventral epidural space, along the posterior wall of L2. Severe central canal stenosis and bilateral neural foraminal stenosis at L2-L3 is evident and impingement on exiting and traversing nerves at this level is probable. Convex levoscoliosis of the thoracolumbar spine centered at L2-L3 is similar to the radiographic study. 2. The tip of conus medullaris terminates at L1-L2 and the conus is not affected. 3. There are postoperative changes of L3-L4-L5 are described in detail in the text. 4. Please see text for details and additional findings. I, Dr. LINDEN BROWNE have personally reviewed and interpreted this examination/study. This report was electronically signed by LINDEN BROWNE on 11/02/2019 11:59 AM . Narrative 11/02/2019 11:59 AM CDT EXAMINATION: MRI OF THE LUMBAR SPINE WITHOUT CONTRAST HISTORY: M54.5: Chronic midline low back pain, unspecified whether sciatica present; G89.29: Chronic midline low back pain, unspecified whether sciatica present TECHNIQUE: MRI of the lumbar spine was performed without contrast according to standard protocol. COMPARISON: Outside CT abdomen and pelvis from 10/27/2019-[place], [place]. CORRELATION: Entire spine radiographs dated 03/08/2019 FINDINGS: Using the nomenclature used on the previous radiographic study, the CT of abdomen pelvis demonstrates the postsurgical changes bilateral laminectomy of L3 and partial right laminectomy of L5 as well as posterior fusion of L3-L4-L5 using paired transpedicular screws and vertical interconnecting rods. The course of bilateral transpedicular screws of L3 is through the superior endplate of L3. There is a minimal fracture of anterior aspect of superior endplate of L3 and complete erosion of anterior and inferior aspect of L2 vertebral body sparing most of its superior endplate and most of the posterior wall of L2 with a residual wedge-shaped appearance of L2. This wedge-shaped appearance of L2 is similar to the previous radiographic study. Radiographically on 03/08/2019, there was focal kyphosis of the thoracolumbar spine centered at L2 without evidence of a spondylolisthesis at L2-L3. Based on this nomenclature, the CT images demonstrate bilateral accessory ribs of L1 which demonstrates chronic partially healed fractures. Similar to CT abdomen and pelvis, the MRI images demonstrate distraction of the thoracic spine and upper lumbar spine in relation to the lumbar spine associated with retrolisthesis of L2 on L3 measuring 2 cm, which has developed since February 2019. There is no change in the wedge-shaped morphology of L2 vertebral body or the height of the L3 vertebral body. There is no evidence of marrow edema to indicate an acute fracture. The coronal T2-weighted imaging was performed which demonstrates a convex levoscoliosis of the thoracolumbar spine centered at L2-L3. The gap between the remaining L2 vertebral body and superior endplate of L3 is filled with fluid which has a wedge-shaped morphology pointing posteriorly, measuring 31 mm AP by 33 mm in cephalocaudal height (series 4, image 13). There is no evidence of a residual disc at L2-L3 level. There is stretching and partial tear of the anterior longitudinal ligament. There is buckling with high T2 signal seen within the posterior longitudinal ligament which likely represents injury. A possible edema in the region of the posterior ligamentous complex is not well seen in this region secondary to artifact from instrumented posterior spinal fusion hardware extending from L3 to L5 as well as extensive posterior paravertebral muscular atrophy with significant increased fat content. The anterior aspect of the L3 vertebral body abuts the abdominal aorta. The conus medullaris terminates at the level of L1-2 and the distal spinal cord signal intensity is normal. Mild disc space height loss is seen at L4-L5 and L5-S1 with mild desiccation of the discs. There is 6 mm grade 1 anterospondylolisthesis of L5 on S1 due to severe facet osteoarthritis. There is no evidence of a spondylolysis of L5. Multiple well-circumscribed T2 hyperintense bilateral renal lesions are present some of which are too small to characterize, but the largest one on the left side. Does not enhance on the CT images and represents a simple cyst measuring 2.5 cm. Otherwise, no suspicious soft tissue abnormality is identified. T11-T12 and T12-L1: The discs, central canal, lower cord, neural foramina, exiting nerves and ligamentum flavum are normal. Mild degenerative changes of bilateral facets and costovertebral articulations are visible. L1-L2: There is no evidence of disc bulging or herniation. The central canal and the left neural foramen are normal in size. Mild narrowing of right neural foramen is due to scoliosis. The conus and cauda equina are normal. There is mild bilateral facet osteoarthritis. L2-L3: There is distraction injury with approximately 2 cm of retrolisthesis of L2 on L3 and fluid filled cleft between the remaining vertebral bodies. Best seen on the CT images, there is a focal hyperdensity in the ventral epidural space, dorsal to posterior wall of L2 and at the level of L2-3 which may represent a ventral epidural hematoma. However, evaluation of signal changes on MRI in this region is severely limited. Spondylolisthesis results in severe central canal in a short segment and severe bilateral neural foraminal stenosis at this level. Impingement on exiting and traversing nerves at this level is probable. L3-L4: There is no posterior disc bulging or herniation. The central canal and lateral recesses are well decompressed after laminectomy. The traversing nerves are unremarkable. The facets are obscured by susceptibility artifact of transpedicular screws. There is mild bilateral neural foraminal stenosis without evidence of impingement on exiting L3 nerves. L4-L5: There is mild broad-based posterior disc bulging more eccentric to the right side. Advanced bilateral facet osteoarthritis is present. There is a focal area of central canal stenosis to a caliber of 7 mm at the disc level followed caudally by a decompressed thecal sac due to right laminectomy of L5. Moderate to severe bilateral neural foraminal stenosis is evident. L5-S1: There is grade 1 anterolisthesis of L5 on S1 with disc uncovering and mild disc space height loss. Advanced bilateral facet osteoarthritis is present. There is central canal stenosis to 8 mm, at the level of superior endplate of S1, but the thecal sac is decompressed at the level of inferior endplate of L5 due to partial right L5 hemilaminectomy. Evaluation of size of neural foramina is limited on the sagittal images, but there is no evidence of neural foraminal stenosis or impingement on exiting L5 nerves on the axial images. Procedure Note Linden Browne MD - 11/02/2019 EXAMINATION: MRI OF THE LUMBAR SPINE WITHOUT CONTRAST HISTORY: M54.5: Chronic midline low back pain, unspecified whether sciatica present; G89.29: Chronic midline low back pain, unspecified whether sciatica present TECHNIQUE: MRI of the lumbar spine was performed without contrast according to standard protocol. COMPARISON: Outside CT abdomen and pelvis from 10/27/2019-[place], [place]. CORRELATION: Entire spine radiographs dated 03/08/2019 FINDINGS: Using the nomenclature used on the previous radiographic study, the CTof abdomen pelvis demonstrates the postsurgical changes bilaterallaminectomy of L3 and partial right laminectomy of L5 as well as posterior fusion of L3-L4-L5 using paired transpedicular screws and vertical interconnecting rods. The course of bilateral transpedicular screws of L3 is through the superior endplate of L3. There is a minimal fracture of anterior aspectof superior endplate of L3 and complete erosion of anterior and inferior aspect of L2 vertebral body sparing most of its superior endplate andmost of the posterior wall of L2 with a residual wedge-shaped appearance ofL2. This wedge-shaped appearance of L2 is similar to the previousradiographic study. Radiographically on 03/08/2019, there was focal kyphosis of the thoracolumbar spine centered at L2 without evidence of aspondylolisthesis at L2-L3. Based on this nomenclature, the CT images demonstrate bilateralaccessory ribs of L1 which demonstrates chronic partially healed fractures. Similar to CT abdomen and pelvis, the MRI images demonstrate distraction of the thoracic spine and upper lumbar spine in relation to the lumbar spine associated with retrolisthesis of L2 on L3 measuring 2 cm, whichhas developed since February 2019. There is no change in the wedge-shaped morphology of L2 vertebral body or the height of the L3 vertebral body. There is no evidence of marrow edema to indicate an acute fracture. The coronal T2-weighted imaging was performed which demonstrates a convex levoscoliosis of the thoracolumbar spine centered at L2-L3. The gap between the remaining L2 vertebral body and superior endplate of L3 is filled with fluid which has a wedge-shaped morphology pointing posteriorly, measuring 31 mm AP by 33 mm in cephalocaudal height (series 4, image 13). There is no evidence of a residual disc at L2-L3 level. There is stretching and partial tear of the anterior longitudinal ligament. There is buckling with high T2 signal seen within theposterior longitudinal ligament which likely represents injury. A possible edemain the region of the posterior ligamentous complex is not well seen in this region secondary to artifact from instrumented posterior spinal fusion hardware extending from L3 to L5 as well as extensive posterior paravertebral muscular atrophy with significant increased fat content. The anterior aspect of the L3 vertebral body abuts the abdominal aorta. The conus medullaris terminates at the level of L1-2 and the distalspinal cord signal intensity is normal. Mild disc space height loss is seen at L4-L5 and L5-S1 with mild desiccation of the discs. There is 6 mm grade1 anterospondylolisthesis of L5 on S1 due to severe facet osteoarthritis. There is no evidence of a spondylolysis of L5. Multiplewell-circumscribed T2 hyperintense bilateral renal lesions are present some of which aretoo small to characterize, but the largest one on the left side. Does not enhance on the CT images and represents a simple cyst measuring 2.5 cm. Otherwise, no suspicious soft tissue abnormality is identified. T11-T12 and T12-L1: The discs, central canal, lower cord, neuralforamina, exiting nerves and ligamentum flavum are normal. Mild degenerativechanges of bilateral facets and costovertebral articulations are visible. L1-L2: There is no evidence of disc bulging or herniation. The central canal and the left neural foramen are normal in size. Mild narrowing of right neural foramen is due to scoliosis. The conus and cauda equina are normal. There is mild bilateral facet osteoarthritis. L2-L3: There is distraction injury with approximately 2 cm of retrolisthesis of L2 on L3 and fluid filled cleft between the remaining vertebral bodies. Best seen on the CT images, there is a focal hyperdensity in the ventral epidural space, dorsal to posterior wall ofL2 and at the level of L2-3 which may represent a ventral epiduralhematoma. However, evaluation of signal changes on MRI in this region is severely limited. Spondylolisthesis results in severe central canal in a short segment and severe bilateral neural foraminal stenosis at this level. Impingement on exiting and traversing nerves at this level is probable. L3-L4: There is no posterior disc bulging or herniation. The centralcanal and lateral recesses are well decompressed after laminectomy. The traversing nerves are unremarkable. The facets are obscured by susceptibility artifact of transpedicular screws. There is mildbilateral neural foraminal stenosis without evidence of impingement on exiting L3 nerves. L4-L5: There is mild broad-based posterior disc bulging more eccentricto the right side. Advanced bilateral facet osteoarthritis is present.There is a focal area of central canal stenosis to a caliber of 7 mm at thedisc level followed caudally by a decompressed thecal sac due to right laminectomy of L5. Moderate to severe bilateral neural foraminalstenosis is evident. L5-S1: There is grade 1 anterolisthesis of L5 on S1 with disc uncovering and mild disc space height loss. Advanced bilateral facet osteoarthritis is present. There is central canal stenosis to 8 mm, at the level of superior endplate of S1, but the thecal sac is decompressed at the level of inferior endplate of L5 due to partial right L5 hemilaminectomy. Evaluation of size of neural foramina is limited on the sagittal images, but there is no evidence of neural foraminal stenosis or impingement on exiting L5 nerves on the axial images. IMPRESSION: 1. Retrolisthesis of L2 on L3 with posterior distraction of the thoracic and upper lumbar spine as compared to lower lumbar spine is similar to outside CT abdomen and pelvis, but it is new from the previous radiographic examination in February 2019. There is no evidence of marrow edema or interval changes in the resorbed anterior and inferior wallsand wedge-shaped appearance of L2 vertebral body or interval changes in the height of L3 vertebral body. There is stretching of anteriorlongitudinal ligament and bulging of the posterior longitudinal ligament. The CTimages favor a small epidural hematoma in ventral epidural space, along the posterior wall of L2. Severe central canal stenosis and bilateral neural foraminal stenosis at L2-L3 is evident and impingement on exiting and traversing nerves at this level is probable. Convex levoscoliosis of the thoracolumbar spine centered at L2-L3 is similar to the radiographic study. 2. The tip of conus medullaris terminates at L1-L2 and the conus is not affected. 3. There are postoperative changes of L3-L4-L5 are described in detailin the text. 4. Please see text for details and additional findings. I, Dr. LINDEN BROWNE have personally reviewed and interpreted this examination/study. This report was electronically signed by LINDEN BROWNE on 11/02/2019 11:59 AM . Vivek Gann MD MR ORDERABLES * BONE DENSITY AXIAL SKELETON(1OR MORE SITES)[id number] (10/12/2019 1:42 PM CDT) Only the most recent of2 resultswithin the time period is included. Anatomical Region Laterality Modality Other 10/13/2019 8:04 AM CDT Narrative 10/13/2019 1:40 PM CDT EXAMINATION: Dual energy x-ray absorptiometry of the lumbar spine and hip. CLINICAL INDICATION: Z01.818: Preop examination. Patient's height 70 inches; lb. FINDINGS: Detailed data from the exam is sent separately to the ordering physician and is also available on [employer], the Radiology Department's computerized picture archive system. COMPARISON: No prior study is available for comparison. SUMMARY: BONE MINERAL DENSITY (BMD) of mid 1/3 of radius: Osteoporotic: T score -3.9 Fracture risk: High per WHO classification osteoporosis. DEFINITIONS: T-score = Standard Deviation Normal: A value for bone mineral density(BMD) within 1 standard deviation of the young adult reference mean. (T-score above -1) Low bone mass(osteopenia): A value for bone mineral density(BMD) more than 1 standard deviation below the young adult mean, but less than 2.5 standard deviations below the young adult mean. ( T-score between -1 and -2.5) Osteoporosis: A value for bone mineral density 2.5 standard deviations or more below the young adult mean. ( T-score at or below -2.5) Severe osteoporosis: Osteoporosis + the presence of one or more fragility fractures. Please note that T-score values are important in determining increased risk for fractures. The T-score represents the standard deviation above or below the mean bone mineral density for young adults. With each -1 standard deviation decrease in bone mineral density, the risk for fracture doubles exponentially. A T-score of -1 will double the risk , and -2 will be 4 times the risk. As a rule of thumb, a T-score of -1 to -2.5 indicates increasing degrees of osteopenia. Dictated by Awa Simental MD (president & founder). This report was approved by Awa Simental on 10/13/2019 8:52 AM . I, Dr. ROJAS SANCHEZ D.O. have personally reviewed and interpreted this examination/study. This report was electronically signed by ROJAS SANCHEZ D.O. on 10/13/2019 1:40 PM . Procedure Note Rojas Sanchez, DO - 10/13/2019 EXAMINATION: Dual energy x-ray absorptiometry of the lumbar spine andhip. CLINICAL INDICATION: Z01.818: Preop examination. Patient's height 70 inches; [id number] lb. FINDINGS: Detailed data from the exam is sent separately to the ordering physician and is also available on [employer], the Radiology Department's computerized picture archive system. COMPARISON: No prior study is available for comparison. SUMMARY: BONE MINERAL DENSITY (BMD) of mid 1/3 of radius: Osteoporotic: T score -3.9 Fracture risk: High per WHO classification osteoporosis. DEFINITIONS: T-score = Standard Deviation Normal: A value for bone mineral density(BMD) within 1 standarddeviation of the young adult reference mean. (T-score above -1) Low bone mass(osteopenia): A value for bone mineral density(BMD) morethan 1 standard deviation below the young adult mean, but less than 2.5 standard deviations below the young adult mean. ( T-score between -1 and -2.5) Osteoporosis: A value for bone mineral density 2.5 standard deviationsor more below the young adult mean. ( T-score at or below -2.5) Severe osteoporosis: Osteoporosis + the presence of one or morefragility fractures. Please note that T-score values are important in determining increased risk for fractures. The T-score represents the standard deviation aboveor below the mean bone mineral density for young adults. With each -1 standard deviation decrease in bone mineral density, the risk forfracture doubles exponentially. A T-score of -1 will double the risk , and -2will be 4 times the risk. As a rule of thumb, a T-score of -1 to -2.5indicates increasing degrees of osteopenia. Dictated by Awa Simental MD (president & founder). This report was approved by Awa Simental on 10/13/2019 8:[address] ROJAS Chaudhari D.O. have personally reviewed and interpreted this examination/study. This report was electronically signed by ROJAS SANCHEZ D.O. on10/13/2019 1:40 PM . Grzegorz Mi MD DEXA ORDERABLES * XR SPINE ENTIRE 2 OR 3VW (03/08/2019 2:09 PM COVERING MACHINE OPERATOR HELPER) Anatomical Region Laterality Modality Radiographic Kinsey ging 03/08/2019 2:11 PM COVERING MACHINE OPERATOR HELPER Impressions 03/08/2019 2:34 PM COVERING MACHINE OPERATOR HELPER IMPRESSION: 1. Markedly degraded radiograph due to insufficient penetration. 2. Focal kyphosis at L2-3 immediately superior to the posterior joint fixation at L3-L5. 3. Marked thoracolumbar scoliosis with coronal and sagittal imbalance. This report was dictated by Surendra Zamudio M.D. (president & founder). Dr. RUTHY Chaudhari have personally reviewed and interpreted this examination/study. This report was electronically signed by RUTHY DUONG on 03/08/2019 2:34 PM . Narrative 03/08/2019 2:34 PM COVERING MACHINE OPERATOR HELPER EXAMINATION: AP and lateral radiographs of the entire spine. COMPARISON: No prior study is available for comparison. HISTORY: Scoliosis FINDINGS: Radiographs are markedly degraded by insufficient penetration related to patient body habitus. Posterior instrumented spinal fixation with bipedicle screws and paired rods is seen at L3-L4-L5. Two sacroiliac joint screws are seen traversing the right sacroiliac joint. There is marked focal kyphosis at L2-3. S-shaped thoracolumbar scoliosis is seen on AP view radiographs, but the vertebral body endplates are obscured and accurate, angles cannot be determined. Multilevel intervertebral degenerative disc disease is present. There is marked positive sagittal imbalance and negative coronal imbalance. There is pelvic tilt measuring approximately 2.0 cm, with the right iliac crest higher than the left. Procedure Note Ruthy Duong DO - 03/08/2019 EXAMINATION: AP and lateral radiographs of the entire spine. COMPARISON: No prior study is available for comparison. HISTORY: Scoliosis FINDINGS: Radiographs are markedly degraded by insufficient penetration related to patient body habitus. Posterior instrumented spinal fixation with bipedicle screws and paired rods is seen at L3-L4-L5. Two sacroiliacjoint screws are seen traversing the right sacroiliac joint. There is marked focal kyphosis at L2-3. S-shaped thoracolumbar scoliosis is seen on AP view radiographs, but the vertebral body endplates are obscured and accurate, angles cannot be determined. Multilevel intervertebral degenerative disc disease is present. There is marked positive sagittal imbalance and negative coronal imbalance. There is pelvic tilt measuring approximately 2.0 cm, with the right iliac crest higher than the left. IMPRESSION: 1. Markedly degraded radiograph due to insufficient penetration. 2. Focal kyphosis at L2-3 immediately superior to the posterior joint fixation at L3-L5. 3. Marked thoracolumbar scoliosis with coronal and sagittal imbalance. This report was dictated by Surendra Zamudio M.D. (president & founder). I, Dr. RUTHY DUNOG have personally reviewed and interpreted this examination/study. This report was electronically signed by RUTHY DUONG on 03/08/2019 2:34 PM . Grzegorz Mi MD DIAGNOSTIC IMAGI NG ORDERABLES * EMG WITH NERVE CONDUCTION STUDY (02/28/2019 11:59 PM COVERING MACHINE OPERATOR HELPER) Narrative Lavon Quiroz MD - 02/28/2019 11:59 PM COVERING MACHINE OPERATOR HELPER Lavon Quiroz MD 03/01/2019 4:57 PM [facility] [address] [place] [address], [address] [phone] Patient: Santi Torrez V #: Physician: Lavon Quiroz MD Sex: Male ID#: [id number] Ref Phys: Grzegorz Mi MD : 1950 Date: 02/28/2019 Dehydrator Operator: Mina Meyer Patient Complaints: The patient is a 69 year old male with complaints of back pain, pain, numbness, weakness, and tingling in the left lower extremities. The symptoms have been present for years. EMG & NCV Findings: 1. The left peroneal motor nerve conduction study showed no response (Ankle), no response (B Fib), no response (Poplt), no response (Ankle), no response (B Fib), and no response (Poplt). 2. The right peroneal motor nerve conduction study showed small amplitude (0.5 mV) and slow conduction velocity (B Fib-Ankle, 31 m/s). 3. The left peroneal motor nerve conduction study from tibialis anterior motor nerve conduction study showed small amplitude (3.7 mV). 4. The right peroneal motor nerve conduction study from tibialis anterior motor nerve conduction study showed small amplitude (2.1 mV) and prolonged onset latency (Poplit, 7.7 ms). 5. The left tibial motor nerve conduction study showed prolonged onset latency (8.3 ms), small amplitude (0.2 mV), and slow conduction velocity (Knee-Ankle, 27 m/s). 6. The right tibial motor nerve conduction study showed prolonged onset latency (8.0 ms) and small amplitude (0.1 mV). 7. The left superficial peroneal antidromic sensory Anti Sensory and the right superficial peroneal antidromic sensory Anti Sensory nerve conduction studies showed no response (12 cm). 8. The left sural antidromic sensory Anti Sensory and the right sural antidromic sensory Anti Sensory nerve conduction studies showed no response (Calf). 9. All left vs. right side differences were within normal limits. 10. F Wave minimal latencies the left peroneal F wave was no response. 11. The right peroneal F wave was no response. 12. The left tibial F wave was no response. 13. The right tibial F wave was no response. 14. H-reflex studies indicate that the left tibial H-reflex has no response. 15. The right tibial H-reflex has prolonged latency (40.00 ms). ? Needle EMG evaluation of the left extensor digitorum brevis, the left DIP IV, and the right lateral gastrocnemius muscles showed mildly reduced recruitment. ? The left lateral gastrocnemius muscle showed few fasciculation potentials, few polyphasic potentials, and mildly reduced recruitment. ? The left medial gastrocnemius and the left anterior tibialis muscles showed few fasciculation potentials and mildly reduced recruitment. ? The left Lower LS paraspinal and the right Lower LS paraspinal muscles showed increased insertional activity. ? The right medial gastrocnemius muscle showed few polyphasic potentials and mildly reduced recruitment. ? The right Upper Lumbar Paraspinals and the right Middle Lumbar Paraspinals muscles showed few fasciculation potentials. ? EMG of all remaining muscles (as indicated in the following table) was normal. IMPRESSION 1. Severe chronic sensorimotor axonal polyneuropathy with chronic changes on needle EMG and mild active denervation. Given history of chronic DM, it may be consistent with Diabetic neuropathy apart from other conditions like dysimmune, paraproteinemic and metabolic. 2. Bilateral upper and middle lumbosacral radiculopathy, based on presence of mild neurogenic changes in lumbar PSM and limb muscles. However, detailed needle EMG was not possible due to posture, unable to relax and recent lower back surgery. 3. Clinical correlations. Lavon Quiroz MD Diplomate, Neuromuscular and Electrodiagnostic Medicine Nerve Conduction Studies Motor Summary Table Stim Site NR Onset (ms) Norm Onset (ms) O-P Amp (mV) Norm O-P Amp Neg Area (mVms) Site1 Site2 Delta-0 (ms) Dist (cm) José (m/s) Norm José (m/s) Left Peroneal Motor Run #1 (Ext Dig Brev) 29.5 C Ankle NR <6.6 >2.0 B Fib Ankle 0.0 >42 B Fib NR Poplt B Fib 0.0 >42 Poplt NR Left Peroneal Motor Run #2 (Ext Dig Brev) 29.9 C Ankle NR <6.6 >2.0 B Fib Ankle 0.0 >42 B Fib NR Poplt B Fib 0.0 >42 Poplt NR Right Peroneal Motor (Ext Dig Brev) 29.8 C Ankle 3.6 <6.6 0.5 >2.0 2.80 B Fib Ankle 12.4 38.0 31 >42 B Fib 16.0 0.2 0.89 Poplt B Fib 1.0 7.0 70 >42 Poplt 17.0 0.3 1.18 Left Peroneal TA Motor (Tib Ant) 29.9 C Fib Head 4.9 <6.6 3.7 >5.0 18.42 Poplit Fib Head 0.4 6.0 150 >42 Poplit 5.3 <5.7 3.9 20.84 Right Peroneal TA Motor (Tib Ant) 29.9 C Fib Head 6.3 <6.6 2.1 >5.0 15.38 Poplit Fib Head 1.4 7.0 50 >42 Poplit 7.7 <5.7 2.1 18.19 Left Tibial ADH Motor (Abd Vick Brev) 29.9 C Ankle 8.3 <6.6 0.2 >2.0 0.73 Knee Ankle 15.3 42.0 27 >42 Knee 23.6 0.4 3.00 Right Tibial ADH Motor (Abd Vick Brev) 29.8 C Ankle 8.0 <6.6 0.1 >2.0 0.70 Site 3 20.9 0.0 0.23 Anti Sensory Summary Table Stim Site NR Onset (ms) Peak (ms) Norm Onset (ms) O-P Amp ( V) Norm O-P Amp Site1 Site2 Delta-0 (ms) Dist (cm) José (m/s) Norm José (m/s) Left Sup Peron Anti Sensory (Ant Lat Mall) 29.9 C 12 cm NR >6.0 12 cm Ant Lat Mall 14.0 >40 Right Sup Peron Anti Sensory (Ant Lat Mall) 29.9 C 12 cm NR >6.0 12 cm Ant Lat Mall 14.0 >40 Left Sural Anti Sensory (Lat Mall) 29.9 C Calf NR <4.0 >5.0 Calf Lat Mall 14.0 >46 Right Sural Anti Sensory (Lat Mall) 29.9 C Calf NR <4.0 >5.0 Calf Lat Mall 14.0 >46 F Wave Studies NR F-Lat (ms) Lat Norm (ms) L-R F-Lat (ms) L-R Lat Norm Left Peroneal (Mrkrs) (EDB) 29.6 C NR <56 <5.1 Right Peroneal (Mrkrs) (EDB) 29.9 C NR <56 <5.1 Left Tibial (Mrkrs) (Abd Hallucis) 29.7 C NR <58 <5.7 Right Tibial (Mrkrs) (Abd Hallucis) 29.8 C NR <58 <5.7 H Reflex Studies NR H-Lat (ms) Lat Norm (ms) L-R H-Lat (ms) L-R Lat Norm Left Tibial (Soleus) 30.9 C NR <34 <2.0 Right Tibial (Soleus) 31.1 C 40.00 <34 <2.0 EMG Side Muscle Nerve Root Insrt Fibs Psw Fasc Amp Dur Poly Recrt Comm Left Ext Dig Brev Dp Br Peron L5, S1 Nml Nml Nml 0 Nml Nml 0 Reduced (mild) Left DIP IV LatPlantar S1-2 Nml Nml Nml 0 Nml Nml 0 Reduced (mild) Left LatGastroc Tibial S1-2 Nml Nml Nml 1+ Nml Nml 1+ Reduced (mild) Left MedGastroc Tibial S1-2 Nml Nml Nml 1+ Nml Nml 0 Reduced (mild) Left AntTibialis Dp Br Peron L4-5 Nml Nml Nml 1+ Nml Nml 0 Reduced (mild) Left Upper Lumbar Paraspinals Rami L1-L2 Nml Nml Nml 0 Nml Nml 0 Nml Left Middle Lumbar Paraspinals Rami L2-L4 Nml Nml Nml 0 Nml Nml 0 Nml Left Lower LS paraspinal Rami L4-S2 Incr Nml Nml 0 Nml Nml 0 Nml Right Ext Dig Brev Dp Br Peron L5, S1 Nml Nml Nml 0 Nml Nml 0 Nml Right DIP IV LatPlantar S1-2 Nml Nml Nml 0 Nml Nml 0 Nml Right LatGastroc Tibial S1-2 Nml Nml Nml 0 Nml Nml 0 Reduced (mild) Right MedGastroc Tibial S1-2 Nml Nml Nml 0 Nml Nml 1+ Reduced (mild) Right AntTibialis Dp Br Peron L4-5 Nml Nml Nml 0 Nml Nml 0 Nml Right Upper Lumbar Paraspinals Rami L1-L2 Nml Nml Nml 1+ Nml Nml 0 Nml Right Middle Lumbar Paraspinals Rami L2-L4 Nml Nml Nml 1+ Nml Nml 0 Nml Right Lower LS paraspinal Rami L4-S2 Incr Nml Nml 0 Nml Nml 0 Nml Waveforms: Grzegorz Mi MD NEUROLOGY ORDERA BLES * CT PELVIS WO CONTRAST (09/27/2018 1:37 PM CDT) Only the most recent of2 resultswithin the time period is included. Anatomical Region Laterality Modality Pelvis Computed Tomogra phy 09/27/2018 1:50 PM CDT Impressions 09/27/2018 2:03 PM CDT Incidental high density material within the spinal canal at the L1-L2 level causing stenosis, please correlate clinically and correlation with MRI or CT could be obtained. Discussed with Dr. Fuchs at 2:00 PM 09/27/2018. Edited by Krys Morales on 09/27/2018 1:59 PM Reading Radiologist: Santi Redmond MD on 09/27/2018 at 2:03 PM Narrative 09/27/2018 2:[address] PELVIS WITHOUT CONTRAST INDICATION: Sacroiliitis, right-sided SI joint fusion aftercare. TECHNIQUE: Axial images of the pelvis were obtained without contrast and reconstructions performed FINDINGS: Lower lumbar fusion. Changes of right SI joint fusion are unremarkable. Incidental note of some high density material within the spinal canal L1-L2 level is indeterminate. Also incidentally seen, there is question of a fracture of the left 12th rib posteriorly. Incidental note of chronic appearing breakdown at the transition level of L2-L3 with significant loss of the L2 vertebral body. Procedure Note Santi Redmond MD - 09/27/2018 CT PELVIS WITHOUT CONTRAST INDICATION: Sacroiliitis, right-sided SI joint fusion aftercare. TECHNIQUE: Axial images of the pelvis were obtained without contrast and reconstructions performed FINDINGS: Lower lumbar fusion. Changes of right SI joint fusion are unremarkable. Incidental note of some high density material within the spinal canal L1-L2 level is indeterminate. Also incidentally seen, there is question of a fracture of the left 12th rib posteriorly. Incidental note of chronic appearing breakdown at the transition level of L2-L3 with significant loss of the L2 vertebral body. IMPRESSION Incidental high density material within the spinal canal at the L1-L2 level causing stenosis, please correlate clinically and correlation with MRI or CT could be obtained. Discussed with Dr. Fuchs at 2:00 PM 09/27/2018. Edited by Krys Morales on 09/27/2018 1:59 PM Reading Radiologist: Santi Redmond MD on 09/27/2018 at 2:03 PM Yuniel Fuchs MD CT ORDERABLES * PAIN MANAGEMENT PROCEDURE TIME (09/15/2018 12:09 PM CDT) Only the most recent of2 resultswithin the time period is included. Anatomical Region Laterality Modality X-Ray Angiograph y Narrative 09/15/2018 12:11 PM CDT Titi Batista MD 09/15/2018 12:11 PM Epidural Neurolysis Patient Name: Santi Pageumer Provider: Titi Batista MD Date of : 1950 Date: 09/15/2018 PCP: Jaiden Sotelo MD Allergies: Allergies as of 09/15/2018 - Juancarlos as Reviewed 09/15/2018 Allergen Reaction Noted Codeine Other 04/13/2018 Pt. presents today for an injection. Procedure: Epidural Neurolysis injection Diagnosis/Indication: M54.16, M54.5, G96.19 Other conservative therapies and/or treatments provided inadequate pain relief. Informed Consent: After the patient was informed of the risks and benefits of the procedure and all questions were answered, consent was signed.Risks benefits, and alternative were discussed including risk of infection, bleeding , nerve damage, worsening pain, no pain relief whatsoever, transient increase in blood pressure, blood sugar, fluid retention,possibility of headache, possibility of shingles, or any other viral outbreak secondary to immunosuppressant effects of steroid use Prep: Pt identified, proper procedure identified, site identified, and marked by Dr. Batista. Pt is not on Coumidin, Plavix or other blood thinners. Responsible ready mix truck driver is not needed due to the patient not having sedation. The patient was placed in a prone position and was prepped with Chloraprep. Procedure: Lidocaine 1% was injected with a 25 gauge needle at L5-S1 verifying placement with guided fluoroscopy. An 18 gauge Touhy needle was placed into the epidural space using loss of resistance technique with preservative free (PF) normal saline. No cerebral spinal fluid or blood was aspirated prior to the injection. Isovue-M 200 4cc was injected to localize the area of scarring. The Touhy needle was repositioned to place 150 units hyalurondiase into the epidural scarring and 80mg Depo Medrol. 6cc of Isovue-M 200 were wasted Complications: None Estimated Blood Loss: None The patient tolerated the procedure well and there were no complications. The patient was allowed to rest and recover after the procedure. The patient remained in stable condition with no apparent complications. Vital signs stable. Injection site clean, dry and intact. Post procedure instructions were given to the patient and a follow up appointment was confirmed. The patient was discharged with information on how to reach the clinic at anytime for questions or concerns. Patient ambulatory, denies complaints, discharged to home. Patient survey given. Procedure code: Epi Lum/cad, Flouro Titi Batista MD Titi Batista MD DIAGNOSTIC IMAGING O RDERABLES * BLOOD TYPE VERIFICATION (07/02/2018 8:15 AM CDT) Only the most recent of2 resultswithin the time period is included. ABO AB 07/02/2018 9:06 AM CDT [facility] Rh Type Positive 07/02/2018 9:06 AM CDT [facility] Blood Bank BLOOD SPECIMEN / Unknown Venipuncture / Unknown 07/02/2018 8:15 AM CDT 07/02/2018 8:33 AM CDT Yuniel Fuchs MD LAB - BLOOD BAN K ORDERABLES [facility] [address] * (ABNORMAL) URINALYSIS REFLEX TO MICROSCOPIC NO CULTURE (07/02/2018 8:15 AM CDT) Color UA Yellow Straw, Yellow 07/02/2018 8:39 AM CDT [facility] Clarity UA Slt Cloudy(A) Clear 07/02/2018 8:39 AM CDT [facility] Glucose UA Negative Negative 07/02/2018 8:39 AM CDT [facility] Bilirubin UA Negative Negative 07/02/2018 8:39 AM CDT [facility] Ketone UA 1+(A) Negative 07/02/2018 8:39 AM CDT [facility] Specific [place] UA 1.021 1.005 - 1.030 07/02/2018 8:39 AM CDT [facility] Blood UA Negative Negative 07/02/2018 8:39 AM CDT [facility] pH UA 5.0 5.0 - 8.0 pH 07/02/2018 8:39 AM CDT [facility] Protein UA Negative Negative 07/02/2018 8:39 AM CDT [facility] Urobilinogen UA Negative Negative mg/dL 07/02/2018 8:39 AM CDT [facility] Nitrite UA Negative Negative 07/02/2018 8:39 AM CDT [facility] Leukocyte UA 1+(A) Negative 07/02/2018 8:39 AM CDT [facility] Urine Microscopy Urine microscopy to follow 07/02/2018 8:39 AM CDT [facility] Urine URINE SPECIMEN OBTAINED BY CLEAN CATCH PROCEDURE / Unknown Collection / Unknown 07/02/2018 8:15 AM CDT 07/02/2018 8:32 AM CDT Narrative [facility] - 07/02/2018 8:39 AM CDT Yuniel Fuchs MD LAB - URINALYSI S ORDERABLES [facility] [address] [place] [address] * (ABNORMAL) URINE MICROSCOPIC ONLY (07/02/2018 8:15 AM CDT) RBC UA 3-5 None Seen, 0-2, 3-5 # /hpf 07/02/2018 8:47 AM CDT [facility] WBC UA 21-50(A) None Seen, 0-5 # /hpf 07/02/2018 8:47 AM CDT [facility] Hyaline Casts 11-20(A) None Seen, 0-2 # /lpf 07/02/2018 8:47 AM CDT [facility] Bacteria UA None Seen None Seen 07/02/2018 8:47 AM CDT [facility] Squamous Epithelial Cells 3-5 None Seen, 0-2, 3-5 /hpf 07/02/2018 8:47 AM CDT [facility] Mucus UA 4+ /LPF 07/02/2018 8:47 AM CDT [facility] Urine URINE SPECIMEN OBTAINED BY CLEAN CATCH PROCEDURE / Unknown Collection / Unknown 07/02/2018 8:15 AM CDT 07/02/2018 8:32 AM CDT Narrative [facility] - 07/02/2018 8:47 AM CDT Yuniel Fuchs MD LAB - URINALYSI S ORDERABLES Performing Organization Address City/[facility] Co de Phone Number [facility] [address] [place] [address] * CULTURE MSSA/MRSA (06/23/2018 2:56 PM CDT) Only the most recent of2 resultswithin the time period is included. Culture Negative for Staphylococcus aureus (MRSA/MSSA) GERRY 06/25/2018 8:59 AM CDT [facility] Microbiology SPECIMEN FROM NASAL FOSSAE / Unknown Collection / Unknown 06/23/2018 2:56 PM CDT 06/23/2018 3:08 PM CDT Shirin Ortega APRN-MARLENA LAB - MICR OBIOLOGY ORDERABLES Performing Organization Address [facility] Co de Phone Number [facility] [address] [place] [address], [facility] [phone] * HEMOGLOBIN A1C (06/23/2018 2:55 PM CDT) Hemoglobin A1c 6.0 4.0 - 6.1 % 06/23/2018 3:25 PM CDT [facility] Estimated Average Glucose 126 mg/dL 06/23/2018 3:25 PM CDT [facility] Blood BLOOD SPECIMEN / Unknown Venipuncture / Unknown 06/23/2018 2:55 PM CDT 06/23/2018 3:08 PM CDT Narrative [facility] - 06/23/2018 3:25 PM CDT Attention clinician: Reference Range has changed. Shirin Ortega APRN-FIELD CASE MANAGER LAB - CHEM ISTRY ORDERABLES Performing Organization Address [facility] Co de Phone Number [facility] [address] [place] [address] * IMAGING/RADIOLOGY/XRAY RESULTS ORDER (03/30/2018) Only the most recent of3 resultswithin the time period is included. Anatomical Region Laterality Modality Other Woody Serrato MD IMAGING * XR LUMBAR SPINE FLEX/EXT 2 VIEW (04/16/2017 9:15 AM COVERING MACHINE OPERATOR HELPER) Anatomical Region Laterality Modality Spine Radiographic Kinsye ging 04/16/2017 9:40 AM COVERING MACHINE OPERATOR HELPER Narrative 04/16/2017 9:41 AM COVERING MACHINE OPERATOR HELPER EXAM: XR LUMBAR SPINE FLEX/EXT 2 VIEW*[id number] INDICATION: Arthrodesis status COMPARISON: 03/09/2017 FINDINGS: Patient has undergone posterior decompression/fusion which extends from L3 to L5. Hardware is appropriately positioned. There is no evidence of loosening or breakage. There is no compression or osseous destruction. Previously described grade 2 anterolisthesis of L5 in regards to S1 is redemonstrated and is unchanged. There is decreased intervertebral disc space height, degenerative endplate change, hypertrophic spurring and facet arthropathy at L4-L5 and L5-S1. Procedure Note Garrett Harry MD - 04/16/2017 EXAM: XR LUMBAR SPINE FLEX/EXT 2 VIEW*[id number] INDICATION: Arthrodesis status COMPARISON: 03/09/2017 FINDINGS: Patient has undergone posterior decompression/fusion which extends from L3 to L5. Hardware is appropriately positioned. There is no evidence of loosening or breakage. There is no compression or osseous destruction. Previously described grade 2 anterolisthesis of L5 in regards to S1 is redemonstrated and is unchanged. There is decreased intervertebral disc space height, degenerative endplate change, hypertrophic spurring and facet arthropathy at L4-L5 and L5-S1. Yuniel Fuchs MD DIAGNOSTIC IMAG ING ORDERABLES * EMG (04/02/2017 4:52 PM COVERING MACHINE OPERATOR HELPER) Narrative Chao De La Rosa MD - 04/02/2017 4:52 PM COVERING MACHINE OPERATOR HELPER Chao De La Rosa MD 04/02/2017 4:52 PM [facility] Neurosciences [place] [facility] [address] [facility] , [address], [facility] [address] Test Date: 03/30/2017 Patient: Santi Torrez : 1950 Physician: Chao De La Rosa MD Sex: Male Height: 6' 0 Ref Phys: Yuniel Fuchs MD ID#: [id number] Weight: 195 lbs. Patient Complaints: Patient is a 67 year old male who presents with complaints of unsteady gait and weakness in the bilateral lower extremities. Symptoms have been present for 6 months. History type 2 DM and S/P lumbar fusion 10/2016. Nerve Conduction Studies Anti Sensory Summary Table Stim Site NR Peak (ms) Norm Peak (ms) P-T Amp ( V) Norm P-T Amp Site1 Site2 Delta-P (ms) Dist (cm) José (m/s) Norm José (m/s) Left Sup Peroneal Anti Sensory (Ant Lat Mall) 27.2 C 14 cm *NR <4.4 >5.0 14 cm Ant Lat Mall 14.0 >32 Site 2 *NR Right Sup Peroneal Anti Sensory (Ant Lat Mall) 28.6 C 14 cm *NR <4.4 >5.0 14 cm Ant Lat Mall 14.0 >32 Site 2 *NR Left Sural Anti Sensory (Lat Mall) 27.3 C Calf *NR <4.0 >5.0 Calf Lat Mall 14.0 >35 Site 2 *NR Right Sural Anti Sensory (Lat Mall) 28.6 C Calf *NR <4.0 >5.0 Calf Lat Mall 14.0 >35 Site 2 *NR Motor Summary Table Stim Site NR Onset (ms) Norm Onset (ms) O-P Amp (mV) Norm O-P Amp Amp (Prev) (%) Site1 Site2 Delta-0 (ms) Dist (cm) José (m/s) Norm José (m/s) Left Fibular TA Motor (Tib Ant) 26.6 C Fib Head 2.7 <4.2 2.9 100.0 Poplit Fib Head 1.8 10.0 56 >40.5 Poplit 4.5 <5.7 2.5 86.2 Left Peroneal Motor (Ext Dig Brev) 26 C Ankle *NR <6.1 >2.5 B Fib Ankle 0.0 >38 B Fib *NR Poplt B Fib 0.0 >40 Poplt *NR Right Peroneal Motor (Ext Dig Brev) 27 C Ankle 4.5 <6.1 *1.5 >2.5 100.0 B Fib Ankle 12.3 35.0 *28 >38 B Fib 16.8 0.4 26.7 Poplt B Fib 2.8 10.0 *36 >40 Poplt 19.6 1.0 250.0 Left Tibial Motor (Abd Vick Brev) 26.9 C Ankle *NR <6.1 >3.0 Knee Ankle 0.0 >35 Knee *NR Right Tibial Motor (Abd Vick Brev) 28.4 C Ankle *7.0 <6.1 *0.7 >3.0 100.0 Knee Ankle 12.8 42.0 *33 >35 Knee 19.8 0.3 42.9 F Wave Studies NR F-Lat (ms) Lat Norm (ms) L-R F-Lat (ms) L-R Lat Norm Left Peroneal (Mrkrs) (EDB) 26.3 C *NR <55.2 <5.1 Right Peroneal (Mrkrs) (EDB) 28.3 C *NR <55.2 <5.1 Left Tibial (Mrkrs) (Abd Hallucis) 27 C *NR <58.9 <5.7 Right Tibial (Mrkrs) (Abd Hallucis) 25.8 C *NR <58.9 <5.7 EMG Side Muscle Nerve Root Ins Act Fibs Psw Fasc Amp Dur Poly Recrt Int Pat Comment Right VastusMed Femoral L2-4 Nml Nml Nml Nml Nml Nml *2+ Nml Nml Right AntTibialis Dp Br Peron L4-5 Nml Nml *1+ Nml Nml *>12ms 0 *Reduced Nml Right Gastroc Tibial S1-2 Nml *1+ Nml Nml Nml *>12ms 0 *Reduced Nml Right Ext Dig Brev Dp Br Peron L5, S1 Nml Nml Nml Nml Nml *>12ms *3+ *Reduced Nml Left VastusMed Femoral L2-4 Nml Nml Nml Nml Nml Nml *1+ Nml Nml Left AntTibialis Dp Br Peron L4-5 Nml Nml Nml Nml Nml Nml *2+ Nml Nml Left Gastroc Tibial S1-2 Nml Nml Nml Nml Nml Nml *2+ Nml Nml Left Ext Dig Brev Dp Br Peron L5, S1 Nml Nml Nml Nml Nml Nml 0 Nml Nml no units Nerve Conduction Studies Anti Sensory Left/Right Comparison Stim Site L Lat (ms) R Lat (ms) L-R Lat (ms) L Amp ( V) R Amp ( V) L-R Amp (%) Site1 Site2 L José (m/s) R José (m/s) L-R José (m/s) Sup Peroneal Anti Sensory (Ant Lat Mall) 27.2 C 14 cm 14 cm Ant Lat Mall Site 2 Sural Anti Sensory (Lat Mall) 27.3 C Calf Calf Lat Mall Site 2 Motor Left/Right Comparison Stim Site L Lat (ms) R Lat (ms) L-R Lat (ms) L Amp (mV) R Amp (mV) L-R Amp (%) Site1 Site2 L José (m/s) R José (m/s) L-R José (m/s) Fibular TA Motor (Tib Ant) 26.6 C Fib Head 2.7 2.9 Poplit Fib Head 56 Poplit 4.5 2.5 Peroneal Motor (Ext Dig Brev) 26 C Ankle 4.5 *1.5 B Fib Ankle 28 B Fib 16.8 0.4 Poplt B Fib 36 Poplt 19.6 1.0 Tibial Motor (Abd Vick Brev) 26.9 C Ankle *7.0 *0.7 Knee Ankle 33 Knee 19.8 0.3 NCV Findings: ? Evaluation of the left peroneal motor nerve showed no response (Ankle), no response (B Fib), and no response (Poplt). ? The right peroneal motor nerve showed reduced amplitude (1.5 mV), decreased conduction velocity (B Fib-Ankle, 28 m/s), and decreased conduction velocity (Poplt-B Fib, 36 m/s). ? The left tibial motor nerve showed no response (Ankle) and no response (Knee). ? The right tibial motor nerve showed prolonged distal onset latency (7.0 ms), reduced amplitude (0.7 mV), and decreased conduction velocity (Knee-Ankle, 33 m/s). ? The left Sup Peroneal sensory and the right Sup Peroneal sensory nerves showed no response (14 cm) and no response (Site 2). ? The left sural sensory and the right sural sensory nerves showed no response (Calf) and no response (Site 2). ? All remaining nerves (as indicated in the following tables) were within normal limits. EMG Findings: ? Needle evaluation of the right vastus medialis, the left anterior tibialis, and the left gastroc muscles showed moderately increased polyphasic potentials. ? The right anterior tibialis and the right gastroc muscles showed slightly increased spontaneous activity, increased motor unit duration, and diminished recruitment. ? The right extensor digitorum brevis muscle showed increased motor unit duration, increased polyphasic potentials, and diminished recruitment. ? The left vastus medialis muscle showed slightly increased polyphasic potentials. ? All remaining muscles (as indicated in the following table) showed no evidence of electrical instability. Impression: 1. 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 There are acute findings that are asymmetric in the right L5 and S1 nerve root distribution and superimposed radiculopathies cannot be excluded Chao De La Rosa MD Waveforms: Yuniel Fuchs MD NEUROLOGY ORDER JORDYN * XR LUMBAR SPINE 2 OR 3 VW (03/09/2017 10:10 AM COVERING MACHINE OPERATOR HELPER) Only the most recent of3 resultswithin the time period is included. Anatomical Region Laterality Modality Spine Radiographic Kinsey ging 03/09/2017 11:5 0 AM COVERING MACHINE OPERATOR HELPER Impressions 03/09/2017 12:03 PM COVERING MACHINE OPERATOR HELPER 1. NO CHANGE POSTERIOR FUSION L3 TO L5 2. ANTEROLISTHESIS L5 UPON S1, SIMILAR TO PRIOR. Edited by Jayshree Chen on 03/09/2017 12:01 PM Narrative 03/09/2017 12:03 PM COVERING MACHINE OPERATOR HELPER LUMBAR SPINE 3 VIEWS INDICATION: Lumbar spine pain FINDINGS: Three views of the lumbar spine, compared to 2017, redemonstrates posterior fusion of L3 through L5 with pedicle screws and metallic hardware. Anterolisthesis of L5 upon S1 is unchanged. No hardware complication is otherwise seen. Bony demineralization is redemonstrated. There is no acute fracture. Procedure Note Ruthy Alatorre MD - 03/09/2017 LUMBAR SPINE 3 VIEWS INDICATION: Lumbar spine pain FINDINGS: Three views of the lumbar spine, compared to 2017, redemonstrates posterior fusion of L3 through L5 with pedicle screws and metallic hardware. Anterolisthesis of L5 upon S1 is unchanged. No hardware complication is otherwise seen. Bony demineralization is redemonstrated. There is no acute fracture. IMPRESSION 1. NO CHANGE POSTERIOR FUSION L3 TO L5 2. ANTEROLISTHESIS L5 UPON S1, SIMILAR TO PRIOR. Edited by Jayshree Chen on 03/09/2017 12:01 PM Yuniel Fuchs MD DIAGNOSTIC IMAG ING ORDERABLES * EMG (11/04/2016 12:44 AM CDT) Narrative 11/04/2016 12:44 AM CDT Ordered by an unspecified provider. Scanned Document NEUROLOGY ORDERABLES * FL SIMÓN SURGERY LESS 60 MIN (10/29/2016 10:09 AM CDT) Anatomical Region Laterality Modality Radiographic Kinsey ging 10/29/2016 10:4 1 AM CDT Narrative 10/29/2016 10:41 AM CDT Fluoroscopy was rendered. No radiologist present. Fluoroscopy time was 95 seconds. 6 images were submitted. Procedure Note Lucy Agosto MD - 10/29/2016 Fluoroscopy was rendered. No radiologist present. Fluoroscopy time was 95 seconds. 6 images were submitted. Yuniel Fuchs MD FLUOROSCOPY ORD ERABLES * HGB HCT PANEL (10/21/2016 1:38 PM CDT) Hemoglobin 13.3 12.0 - 17.6 gm/dL 10/21/2016 3:49 PM CDT [facility] Hematocrit 39.0 35.2 - 51.7 % 10/21/2016 3:49 PM CDT [facility] Blood BLOOD SPECIMEN / Unknown Venipuncture / Unknown 10/21/2016 1:38 PM CDT 10/21/2016 3:40 PM CDT Yuniel Fuchs MD LAB - HEMATOLOG Y ORDERABLES Performing Organization Address [facility]/ZIP Co de Phone Number [facility] [address] [place] [address] * (ABNORMAL) CULTURE ANAEROBE+AEROBE+GRAM STAIN (11/08/2014) Culture SEE NOTE [facility]) Comment: CULTURE, ANAEROBIC BACTERIA W/GRAM STAIN MICRO NUMBER: [id number] TEST STATUS: FINAL SPECIMEN SOURCE: SKIN SPECIMEN QUALITY: ADEQUATE GRAM STAIN: No organisms or white blood cells seen RESULT: No anaerobes isolated. Culture SEE NOTE(A) [facility]) Comment: CULTURE, AEROBIC BACTERIA MICRO NUMBER: [id number] TEST STATUS: FINAL SPECIMEN SOURCE: SKIN BACK SPECIMEN QUALITY: ADEQUATE RESULT: Scant growth of Methicillin resistant Staphylococcus aureus (MRSA) Negative for inducible clindamycin resistance. COMMENT: Skin nikki also present. MRSA INT GERRY AMOX/CLAVULANATE R NR AMP/SULBACTAM R NR CEFAZOLIN R NR CIPROFLOXACIN R >2 CLINDAMYCIN S 0.5 ERYTHROMYCIN R >4 GENTAMICIN S <=1 LEVOFLOXACIN R >4 OXACILLIN R NR 1 TETRACYCLINE R >8 TRIMETHOPRIM/SULFA S <=0.5/9.5 VANCOMYCIN S 2 S=Susceptible I=Intermediate R=Resistant * = Not Tested NR = Not Reported NN = See Therapy Comments THERAPY COMMENTS Note 1: Oxacillin-resistant staphylococci are resistant to all currently available beta-lactam antimicrobial agents including penicillins, beta lactam/beta- lactamase inhibitor combinations, and cephems with staphylococcal indications, including Cefazolin. REPORT COMMENT: SPECIMEN TYPE->SKIN Test Performed at: [facility] [id number] [place] [phone] ROBB SALVADOR MD Skin (tissue) specimen (specimen) 11/08/2014 11/09/2014 2:32 PM CDT Narrative [facility]) - 11/14/2014 8:00 AM CDT Specimen Type->Skin Yuniel Olivares MD LAB - MICROBIOLOGY O RDERABLES Performing Organization Address [facility]/ZIP Co de Phone Number [facility]) Care Teams Piano Bench Assembler Relationship Specialty Start Date End Date Jaiden Sotelo MD [address] [place] [id number] PCP - General Family Medicine 10/01/16
--- OUTSIDE RECORDS SUMMARY | 2024-04-18 13:17 | XMS_ITS | Clinical Summary ---
Author Organization [facility] Address [address] [place] [address] Care Team Providers Care Tier In Name Role Phone Unavailable Primary Care Provider Unavailabl e Allergies Active Allergy Reactions Criticality Noted Date Comments Codeine 04/04/2020 Medications brimonidine (ALPHAGAN) 0.15 % ophthalmic solution Administer 1 drop into the left eye 2 (two) times a day. Active renal multivitamin (B Complex) Tab/Cap tab/cap Take 1 each by mouth daily. Active doxazosin (CARDURA) 2 MG tablet Take 2 mg by mouth daily. Active glimepiride (AMARYL) 2 MG tablet Take 2 mg by mouth Daily before breakfast. Active melatonin 5 MG tablet Take 10 mg by mouth nightly as needed for sleep. Active omeprazole (PriLOSEC) 20 MG capsule Take 20 mg by mouth daily. Active latanoprost (XALATAN) 0.005 % ophthalmic solution Administer 1 drop into both eyes 2 (two) times a day. This was being given bid at [email or web address] but changed to nightly while in Rehab Active aspirin 81 MG chewable tablet Chew 1 tablet (81 mg total) daily. 0 1 Active docusate sodium (COLACE) 100 MG capsule Take 1 capsule (100 mg total) by mouth 2 (two) times a day as needed for constipation. 0 1 Active latanoprost (XALATAN) 0.005 % ophthalmic solution Administer 1 drop into both eyes nightly. 2.5 mL 1 Active ascorbic acid (VITAMIN C) 250 MG tablet Take 1 tablet (250 mg total) by mouth daily. 0 1 Active calcium carbonate (TUMS) 500 MG chewable tablet Chew 1 tablet (500 mg total) every 4 (four) hours as needed for indigestion or heartburn. 0 Active Active Problems Problem Noted Date Diagnosed Date Diabetes mellitus 04/05/2020 Debility 04/05/2020 Neuropathy 04/05/2020 Spinal stenosis, lumbar region 04/04/2020 Family History Medical History Relation Name Comments Hypertension Father Relation Name Status Comments Father Social History Tobacco Use Types Packs/Day Years Used Date Smoking Tobacco: Never Smokeless Tobacco: Never Alcohol Use Standard Drinks/Week Comments Not Currently 0 (1 standard drink = 0.6 oz pur e alcohol) Sex and Gender Information Value Date Recorded Sex Assigned at Not on file Legal Sex Male 12:33 PM EST Gender Identity Not on file Sexual Orientation Not on file Last Filed Vital Signs Vital Sign Reading Time Taken Comments Blood Pressure 115/72 04/18/2020 8:32 AM [facility] Pulse 74 04/18/2020 8:32 AM [facility] Temperature 36.4 C (97.6 F) 04/18/2020 8:32 AM [facility] Respiratory Rate 18 04/18/2020 8:32 AM [facility] Oxygen Saturation 97% 04/18/2020 8:32 AM [facility] Inhaled Oxygen Concentration - - Weight 61.2 kg (135 lb) 04/08/2020 7:36 PM [facility] Height 180.3 cm (5' 11 ) 04/08/2020 7:36 PM [facility] Body Mass Index 18.83 04/08/2020 7:36 PM [facility] Plan of Treatment Not on file Advance Directives * Full Resuscitation (Latest Code Status on File) Date Activated Date Inactivated Comments 04/04/2020 7:09 PM 04/18/2020 5:20 PM Full code
--- OUTSIDE RECORDS SUMMARY | 2024-04-18 13:17 | XMS_ITS | Referral Summary ---
Author Organization [facility] [place] [address] Address [address] [place] [address] Care Team Providers Care Machine Finisher Name Role Phone Jaiden Sotelo MD Primary Care Prov ider Lasha Askew MD Unavailable [phone] Lasha Askew MD Unavailable [phone] Allergies Active Allergy Reactions Criticality Noted Date Comments Codeine Other (See comments) Low 04/13/2018 Really bad constipation Medications aspirin 81 mg chewable tablet aspirin Acti ve doxazosin (CARDURA) 2 mg tablet Take 2 mg by mouth daily. Active hydroCHLOROthia zide (HYDRODIURIL) 25 mg tablet Take 25 mg by mouth daily. Active glimepiride (AMARYL) 2 mg tabletIndicatio ns:type 2 diabetes mellitus Take 2 mg by mouth daily before breakfast. 8 Active meloxicam (MOBIC) 15 mg tablet Take 15 mg by mouth daily. Active omeprazole (PriLOSEC) 20 mg capsule Take 20 mg by mouth daily. Active tamsulosin (FLOMAX) 0.4 mg extended release capsule Take 0.4 mg by mouth nightly. Active PROAIR HFA 90 mcg/actuation inhaler Inhale 2 puffs every 4 (four) hours as needed. 8 Active clobetasol (TEMOVATE) 0.05 % external solutionIndicat ions:Dermatosis of the Scalp Apply 1 application topically 2 (two) times a day as needed. 8 Active predniSONE (DELTASONE) 10 mg tablet Take 10 mg by mouth daily Taking 15mg daily 8 Active gabapentin (NEURONTIN) 600 mg tablet Take 1,200 mg by mouth 2 (two) times a day. Active metFORMIN (GLUCOPHAGE) 1,000 mg tablet Take 1,000 mg by mouth 2 (two) times a day with meals. Active multivitamin capsule Take 1 capsule by mouth daily. Active trimethoprim (TRIMPEX) 100 mg tablet Take 200 mg by mouth 2 (two) times a day. Active b complex vitamins capsule Take 1 capsule by mouth daily. Active cyanocobalamin (Vitamin B-12) 250 mcg tablet Take 250 mcg by mouth daily. Active vitamin E (AQUASOL E) 200 unit capsule Take 200 Units by mouth daily. Active ascorbic acid (VITAMIN C) 250 mg tablet Take 250 mg by mouth daily. Active calcium-magnesi um-zinc tablet Take 1 tablet by mouth 3 (three) times a day. Active cholecalciferol (VITAMIN D-3) 1,000 unit tablet Take 1,000 Units by mouth daily. Active acetaminophen (TYLENOL) 500 mg tablet Take 500 mg by mouth every 6 (six) hours as needed for pain. Active diphenhydrAMINE (diphenhydrAMIN E) 25 mg capsule Take 25 mg by mouth nightly as needed for itching. Active acetaminophen-c odeine (TYLENOL with CODEINE #3) 300-30 mg per tablet Take 1 tablet by mouth every 6 (six) hours as needed. 9 Active brimonidine (ALPHAGAN) 0.2 % ophthalmic solutionIndicat ions:Primary open angle glaucoma (POAG) of both eyes, severe stage INSTILL 1 DROP IN BOTH EYES TWICE DAILY 10 mL 11 9 Active trimethoprim, bulk, 100 % powder Take 100 mg by mouth Active SYMBICORT 80-4.5 mcg/actuation inhaler INL 2 PFS PO BID 2 9 Active dorzolamide-yolanda olol (COSOPT) 22.3-6.8 mg/mL ophthalmic solution Administer 1 drop into both eyes 2 (two) times a day 10 mL 11 9 Active atorvastatin (LIPITOR) 20 mg tablet TK 1 T PO QD 2 9 Active glucosamine sulfate (SYNOVACIN ORAL) Glucosamine Active traMADol (ULTRAM) 50 mg tablet TK 1 TO 2 TS PO D PRN P 0 9 Active latanoprost (XALATAN) 0.005 % ophthalmic solution Administer 1 drop into both eyes nightly 10 mL 3 0 Active clopidogreL (PLAVIX) 75 mg tablet Take 1 tablet (75 mg total) by mouth daily 30 tablet 11 2 Active Active Problems Problem Noted Date Diagnosed Date Epiretinal membrane (ERM) of right eye 0 Punctate keratitis, left eye 01/14/2019 Mechanical complication due to ocular lens prosthesis, initial encounter 11/02/2018 Assessment & Plan (11/02/2018 10:58 AM CDT): OS VF worse - will recheck. Sulcus [...] 2 mo F/U with me 3 mo [facility] Dry eye syndrome of both eyes 10/15/2018 Assessment & Plan (10/15/2018 11:01 AM CDT): Retaine tears QID both eyes (OU) and S[place]DHARTH at bedtime (QHS) Meibomian gland disease 10/15/2018 Assessment & Plan (10/15/2018 11:02 AM CDT): Warm compresses, digital massage Erectile dysfunction 02/02/2018 Overview (02/02/2018): Added automatically from request for surgery [id number] Primary open angle glaucoma (POAG) of left eye, severe stage 10/21/2017 Assessment & Plan (02/01/2019 2:13 PM [employer]): Reviewing UBM - unlikely that chafe is causing the issue. Recommend IOP in mid to low teens - pt is hesitant to do surgery. If IOP in 20's recommend ahmed and IOL repos (try optic capture). Try agan BID OS to lower IOP. 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 Pain of lower extremity 10/31/2015 Spinal stenosis of lumbar region 10/31/2015 Spondylolisthesis of lumbar region 10/31/2015 Diabetic neuropathy 10/31/2015 Lumbar radiculopathy 10/11/2015 History of cataract extraction 08/10/2015 Macular scar 07/09/2015 Vitreous floaters 07/09/2015 Diabetes mellitus 11/29/2014 Hypertension 11/29/2014 Combined forms of age-related cataract 5 Primary open angle glaucoma (POAG) of right eye, moderate stage 11/29/2014 Peripheral chorioretinal scars 11/29/2014 Resolved Problems Problem Noted Date Diagnosed Date Resolved Date Glaucoma 10/31/2015 10/21/2017 Nuclear senile cataract 12/06/201409/24 Social History Tobacco Use Types Packs/Day Years Used Date Smoking Tobacco: Never Smokeless Tobacco: Never Alcohol Use Standard Drinks/Week Comments No 0 (1 standard drink = 0.6 oz pur e alcohol) none in over a year Personal Safety Answer Date Recorded Getting School Help Needed Not on file 04/19 Sex and Gender Information Value Date Recorded Sex Assigned at Not on file Legal Sex Male 11:16 PM [employer] Gender Identity Not on file Sexual Orientation Not on file Last Filed Vital Signs Vital Sign Reading Time Taken Comments Blood Pressure 140/75 12/02/2021 5:45 PM CDT Pulse 74 12/02/2021 5:45 PM CDT Temperature 36.5 C (97.7 F) 12/02/2021 10:48 AM CDT Respiratory Rate 16 12/02/2021 5:45 PM CDT Oxygen Saturation 97% 12/02/2021 5:45 PM CDT Inhaled Oxygen Concentration - - Weight 80.3 kg (177 lb) 12/02/2021 10:49 AM CDT Height 172.7 cm (5' 8 ) 12/02/2021 10:49 AM CDT Body Mass Index 26.91 12/02/2021 10:49 AM CDT Plan of Treatment Not on file Medical Devices Implanted Type Area Line Controller Device Identifier Shelf Expiration Date Model / Serial / Lot Coloplast Yash [id number] Titan Lock-Out Inflatable Self Contain Fluid Fill Tube Standard Latex Free - [id number] Implanted:Qty: 1 on 03/22/2018 by Jarett Mittal MD at [facility] N/A: Penis [employer]oplast Yash 10/11/2022 [id number] / / [id number] [employer]oplast Yash [id number] Titan Coloplast Lock-Out Inflatable Self Contain Fluid Fill Valve Latex Free - [id number] Implanted:Qty: 1 on 03/22/2018 by Jarett Mittal MD at [facility] Left: Groin Coloplast Yash 11/01/2022 [id number] / / [id number] Coloplast Yash [id number] Pros 0d Penile Cyl Pump Set - [id number] Implanted:Qty: 1 on 03/22/2018 by Jarett Mittal MD at [facility] N/A: Penis Coloplast Yash 01/06/2023 [id number] / / [id number] [employer] Yash Angio-Seal Vip 6fr Closere Device [id number] - [id number] Implanted:Qty: 1 on 12/02/2021 at [facility] [employer] Yash 07/23/2022 [id number] / / [id number] Procedures Procedure Name Priority Date/Time Associated Diagnosis Comments CTA ABDOMINAL AORTA AND BILATERAL ILIOFEMORAL RUNOFF Schedule Routine, Read Routine (OP Routine) 11/06/2021 2:14 PM CDT PAD (peripheral artery disease) (CMS/HCC) (HCC) EGFR Routine 03/11/2018 11:28 AM [employer] Erectile dysfunction due to diseases classified elsewhere HEMOGLOBIN A1C Routine 03/04/2018 12:28 PM [employer] Preop testing POCT LIPID PANEL Routine 06/30/2017 4:07 PM CDT Lipid screening from Last 3 Months or Most Recently Relevant to Health Maintenance Results * CTA Abdominal Aorta And Bilateral Iliofemoral Runoff (11/06/2021 2:14 PM CDT) Anatomical Region Laterality Modality Body Bilateral Computed Tomogra phy 11/06/2021 4:04 PM CDT Impressions 11/07/2021 12:26 AM CDT 1. Right lower extremity: Severe stenosis of right distal popliteal artery and proximal anterior tibial artery, complete occlusion of posterior tibial artery with severe multilevel disease in right distal anterior tibial artery. Two-vessel runoff with anterior tibial artery and peroneal artery to the ankle with complete occlusion of proximal dorsalis pedis artery, reformation and continuation into the plantar arch. 2. Left lower extremity: Multilevel mild disease in the left superficial femoral and popliteal artery with severe stenosis/near occlusion of the tibioperoneal trunk and proximal peroneal artery. single vessel runoff with peroneal artery to ankle with multilevel tandem occlusions of JOY LOADING MACHINE OPERATOR and SONIDO. Extensive calcific atherosclerosis of tibial vessels. Dictated by: Rene Jaimes M.D. The radiology attending physician has personally reviewed this study, and had reviewed and/or edited this written report and agrees with it. Electronically signed by: Taz Pak M.D. Narrative 11/07/2021 12:26 AM CDT EXAMINATION: CT ANGIOGRAPHY OF THE ABDOMEN, PELVIS, AND LOWER EXTREMITIES WITH CONTRAST HISTORY: Left fifth metatarsal wound TECHNIQUE: CT angiography of the abdomen, pelvis, and lower extremities was performed following the uneventful intravenous administration of 114 ml Optiray-350. Vascular 3D images were generated on a dedicated workstation and also reviewed. COMPARISON: None FINDINGS: VASCULAR FINDINGS: Abdominal Aorta and Branches: Celiac axis: no significant stenosis SMA: no significant stenosis ZOFIA: no significant stenosis Right renal vessels: no significant stenosis Left renal vessels: no significant stenosis Infrarenal aorta: no significant stenosis. No aneurysm. Pelvic Vessels: R. Common iliac artery: no significant stenosis R. External iliac artery: no significant stenosis R. Internal iliac artery: no significant stenosis L. Common iliac artery: no significant stenosis L. External iliac artery: no significant stenosis L. Internal iliac artery: no significant stenosis Right Lower Extremity: R. Common femoral artery: Mild diffuse calcific atherosclerosis without significant stenosis. R. Profunda femoris artery: Mild diffuse calcific atherosclerosis without significant stenosis. R. Superficial femoral artery: Mild/moderate multilevel stenosis, worst at the level of the right adductor canal on table position 647.0. R. Popliteal artery: Moderate to severe stenosis, predominantly in the distal popliteal artery R. Anterior tibial artery: Severe stenosis at the ostium R. Tibioperoneal trunk: Severe stenosis R. Posterior tibial artery: Total occlusion with diffuse calcific atherosclerosis R. Peroneal artery: Mild multilevel stenosis R. Dorsalis pedis artery: Occlusion in the proximal dorsalis pedis artery with the formation R. Plantar artery: reformation from dorsalis pedis artery Left Lower Extremity: L. Common femoral artery: Mild multilevel stenosis. L. Profunda femoris artery: Mild diffuse calcific atherosclerosis without mild multilevel stenosis L. Superficial femoral artery: Mild to moderate multilevel stenosis. Left distal superficial femoral artery stent across the left adductor canal is patent. Mild in-stent stenosis. L. Popliteal artery: Mild multilevel stenosis. L. Anterior tibial artery: Focal occlusion in the proximal aspect on table position 878.0 to the distal reformation and multiple tandem occlusions with extensive calcific atherosclerosis. L. Tibioperoneal trunk: Severe multifocal stenosis/near occlusion L. Posterior tibial artery: Multifocal tandem occlusions with reformation of the artery in the distal leg L. Peroneal artery: Ostiomeatal occlusion with mild multilevel disease, continuation to the ankle L. Dorsalis pedis artery: Severe multilevel disease with multiple tandem occlusions. L. Plantar artery: Mild multilevel disease. NON-VASCULAR FINDINGS: Lung bases are clear. Heart size is normal. Coronary artery calcification. No pericardial or pleural effusion. Mild bibasilar atelectasis. Evidence of old granulomatous disease in right lung. Liver, spleen, pancreas, both adrenal glands, gallbladder are normal. Kidneys are symmetrically enhancing. Extensive long segment corpectomy of L1-L3 vertebral bodies with posterior spinal fixation extending from the lower thoracic through S1 and iliac screws. In addition, there is left lateral fixation of the corpectomy hardware. Stomach is distended with food debris. Small bowel large bowel loops are normal. No free fluid or free air. Urinary bladder is distended without focal wall thickening. Urinary bladder is moderately distended. Penile implant is noted. Bones do not show aggressive osseous disease. Right dynamic hip screw seen. Right knee joint effusion. Procedure Note Taz Pak MD - 11/07/2021 EXAMINATION: CT ANGIOGRAPHY OF THE ABDOMEN, PELVIS, AND LOWER EXTREMITIES WITH CONTRAST HISTORY: Left fifth metatarsal wound TECHNIQUE: CT angiography of the abdomen, pelvis, and lower extremities was performed following the uneventful intravenous administration of 114 ml Optiray-350. Vascular 3D images were generated on a dedicated workstation and also reviewed. COMPARISON: None FINDINGS: VASCULAR FINDINGS: Abdominal Aorta and Branches: Celiac axis: no significant stenosis SMA: no significant stenosis ZOFIA: no significant stenosis Right renal vessels: no significant stenosis Left renal vessels: no significant stenosis Infrarenal aorta: no significant stenosis. No aneurysm. Pelvic Vessels: R. Common iliac artery: no significant stenosis R. External iliac artery: no significant stenosis R. Internal iliac artery: no significant stenosis L. Common iliac artery: no significant stenosis L. External iliac artery: no significant stenosis L. Internal iliac artery: no significant stenosis Right Lower Extremity: R. Common femoral artery: Mild diffuse calcific atherosclerosis without significant stenosis. R. Profunda femoris artery: Mild diffuse calcific atherosclerosis without significant stenosis. R. Superficial femoral artery: Mild/moderate multilevel stenosis, worst at the level of the right adductor canal on table position 647.0. R. Popliteal artery: Moderate to severe stenosis, predominantly in the distal popliteal artery R. Anterior tibial artery: Severe stenosis at the ostium R. Tibioperoneal trunk: Severe stenosis R. Posterior tibial artery: Total occlusion with diffuse calcific atherosclerosis R. Peroneal artery: Mild multilevel stenosis R. Dorsalis pedis artery: Occlusion in the proximal dorsalis pedis artery with the formation R. Plantar artery: reformation from dorsalis pedis artery Left Lower Extremity: L. Common femoral artery: Mild multilevel stenosis. L. Profunda femoris artery: Mild diffuse calcific atherosclerosis without mild multilevel stenosis L. Superficial femoral artery: Mild to moderate multilevel stenosis. Left distal superficial femoral artery stent across the left adductor canal is patent. Mild in-stent stenosis. L. Popliteal artery: Mild multilevel stenosis. L. Anterior tibial artery: Focal occlusion in the proximal aspect on table position 878.0 to the distal reformation and multiple tandem occlusions with extensive calcific atherosclerosis. L. Tibioperoneal trunk: Severe multifocal stenosis/near occlusion L. Posterior tibial artery: Multifocal tandem occlusions with reformation of the artery in the distal leg L. Peroneal artery: Ostiomeatal occlusion with mild multilevel disease, continuation to the ankle L. Dorsalis pedis artery: Severe multilevel disease with multiple tandem occlusions. L. Plantar artery: Mild multilevel disease. NON-VASCULAR FINDINGS: Lung bases are clear. Heart size is normal. Coronary artery calcification. No pericardial or pleural effusion. Mild bibasilar atelectasis. Evidence of old granulomatous disease in right lung. Liver, spleen, pancreas, both adrenal glands, gallbladder are normal. Kidneys are symmetrically enhancing. Extensive long segment corpectomy of L1-L3 vertebral bodies with posterior spinal fixation extending from the lower thoracic through S1 and iliac screws. In addition, there is left lateral fixation of the corpectomy hardware. Stomach is distended with food debris. Small bowel large bowel loops are normal. No free fluid or free air. Urinary bladder is distended without focal wall thickening. Urinary bladder is moderately distended. Penile implant is noted. Bones do not show aggressive osseous disease. Right dynamic hip screw seen. Right knee joint effusion. IMPRESSION: 1. Right lower extremity: Severe stenosis of right distal popliteal artery and proximal anterior tibial artery, complete occlusion of posterior tibial artery with severe multilevel disease in right distal anterior tibial artery. Two-vessel runoff with anterior tibial artery and peroneal artery to the ankle with complete occlusion of proximal dorsalis pedis artery, reformation and continuation into the plantar arch. 2. Left lower extremity: Multilevel mild disease in the left superficial femoral and popliteal artery with severe stenosis/near occlusion of the tibioperoneal trunk and proximal peroneal artery. single vessel runoff with peroneal artery to ankle with multilevel tandem occlusions of JOY LOADING MACHINE OPERATOR and SONIDO. Extensive calcific atherosclerosis of tibial vessels. Dictated by: Rene Jaimes M.D. The radiology attending physician has personally reviewed this study, and had reviewed and/or edited this written report and agrees with it. Electronically signed by: Taz Pak M.D. Lasha Askwe MD IMG CT PROCEDURES Final Result * eGFR (03/11/2018 11:28 AM [employer]) eGFR 50 mL/min/1.7 3 m2 [facility] Comment: Interpretive Data Reference Interval Normal >/= 90 mL/min/1.73m2 Mildly decreased* 60 - 89 mL/min/1.73m2 Mildly to moderately decreased 45 - 59 mL/min/1.73m2 Moderately to severely decreased 30 - 44 mL/min/1.73m2 Severely decreased 15 - 29 mL/min/1.73m2 Kidney Failure < 15 mL/min/1.73m2 *Relative to young adult level If -Vincentian multiply value by 1.16. Estimated glomerular filtration rate is determined by the CKD-EPI equation recommended by the National Kidney Foundation (KDIGO 2012 Clinical Practice Guideline for the Evaluation and Management of Chronic Kidney Disease. Kidney Intnl Suppl Feb 2012;3:1). The CKD-EPI equation should not be used for patients with unstable renal function and has not been validated in children and those over 70. Current interpretive data was last reviewed 2015. Blood specimen (specimen) 03/11/2018 11:28 AM [employer] 03/11/2018 11:34 AM [employer] Haleigh CERNA CH - 03/11/2018 11:50 AM [employer] Jarett Mittal MD LAB BLOOD ORDERABLES Fi nal Result [facility] [id number] Department [place] [address] * (ABNORMAL) Hemoglobin A1c (03/04/2018 12:28 PM [employer]) Hgb A1C 5.9(H) 4.0 - 5.6 % [facility] Estimated Average Glucose 123 mg/dL [facility] Comment: The ADA recommends reporting an estimated Average Glucose (eAG) with all Hemoglobin A1c results using the equation derived from a study of 507 normal and diabetic adults. Minority populations were underrepresented and children were not included. (Diabetes Care 31:1084-9986, 2008). The eAG is not equivalent to a fasting glucose. Blood specimen (specimen) 03/04/2018 12:28 PM [employer] 03/04/2018 1:48 PM [employer] Haleigh CERNA - 03/04/2018 2:13 PM [employer] us Jarett Mittal MD LAB BLOOD ORDERABLES Fi nal Result [facility] [address] [place] [address] * POCT lipid panel (06/30/2017 4:07 PM CDT) Cholesterol, POC 217 mg/dL Triglycerides, POC >650 mg/dL Blood specimen (specimen) 06/30/2017 4:07 PM CDT us Farhat De La Cruz MD POINT OF CARE TEST ORDER JORDYN Final Result from Last 3 Months or Most Recently Relevant to Health Maintenance Insurance [facility] IDPA AETNA MEDICARE GOLD AETNA MEDICARE GOLD IDPA Advance Directives For more information, please contact: [phone] * Full Code (Latest Code Status on File) Date Activated Date Inactivated Comments 12/02/2021 10:48 AM 12/03/2021 5:04 AM * Full Code Date Activated Date Inactivated Comments 03/22/2018 1:47 PM 03/23/2018 8:17 PM Care Teams Machine Finisher Relationship Specialty Start Date End Date Jaiden Sotelo MD [address] [place] [address] PCP - General 06/11/16 Lasha Askew MD [id number] [place] [address] Consulting Physician [facility] 12/04/21 Lasha Askew MD [id number] [place] [address] Consulting Physician [facility] 01/10/22
--- OUTSIDE RECORDS SUMMARY | 2024-04-18 13:17 | XMS_ITS | Clinical Summary ---
Author Organization [facility] Address [address] [place] [address] Care Team Providers Care Welder Oxyhydrogen Name Role Phone Jaiden Sotelo MD Primary Care Provider [phone] Allergies No known active allergies Medications B Complex Vitamins (B COMPLEX 1 OR) Take 1 capsule by mouth daily. Active Brimonidine-Gordon zolamide 0.15-2 % Solution Apply 1 drop to eye 2 (two) times a day. Active calcium-magnesi um-zinc 333-133-5 MG Tab Take 1 tablet by mouth daily. Active atorvastatin 20 MG tablet Take 20 mg by mouth daily. 02/11/2021 Active doxazosin 2 MG tablet Take 2 mg by mouth daily. 02/11/2021 Active gabapentin 600 MG tablet Take 1,200 mg by mouth 2 (two) times daily. 02/18/2021 Active glimepiride 2 MG tablet Take 2 mg by mouth daily. 02/11/2021 Active latanoprost 0.005 % ophthalmic solution Apply 1 drop to eye 2 (two) times daily. Active melatonin 5 MG tablet Take 10 mg by mouth daily as needed. Active metFORMIN ER 500 MG 24 hr tablet Take 1,000 mg by mouth 2 (two) times daily. 08/13/2020 Active tamsulosin 0.4 MG Cap Take 0.8 mg by mouth nightly. 02/28/2021 Active clopidogrel 75 MG tablet Take 75 mg by mouth daily. Active Social History Tobacco Use Types Packs/Day Years Used Date Smoking Tobacco: Never Sex and Gender Information Value Date Recorded Sex Assigned at Not on file Legal Sex Male 7:15 AM CDT Gender Identity Not on file Sexual Orientation Not on file Last Filed Vital Signs Vital Sign Reading Time Taken Comments Blood Pressure 167/93 07/31/2022 3:55 PM CDT Pulse 65 07/31/2022 3:55 PM CDT Temperature 36.9 C (98.5 F) 07/31/2022 2:46 PM CDT Respiratory Rate 16 07/31/2022 3:55 PM CDT Oxygen Saturation 98% 07/31/2022 3:55 PM CDT Inhaled Oxygen Concentration - - Weight 92.1 kg (203 lb 0.7 oz) 07/31/2022 2:46 P M CDT Height 182.9 cm (6') 07/31/2022 2:46 PM CDT Body Mass Index 27.54 07/31/2022 2:46 PM CDT Plan of Treatment Health Maintenance Due Date Last Done Comments Colorectal Cancer Screening Colonoscopy (10 Years) 1950 Hepatitis C 1967 DTaP, Tdap and Td Vaccines ( 1 - Tdap) 01/20/1968 Annual Medicare Wellness Visit 2014 Pneumococcal Vaccine: 65+ Years (1 of 1 - PCV) 2014 Zoster Vaccines (3 of 3) 12/13/2018 019, 01/21/2014 COVID-19 Vaccine (4 - 2023-2 5 season) 2023 11/24/2020, 03/25/2020, 03/04/2020 Influenza Adult (#1) 2023 11/16/2019, 10/15/2018, 02/10/2012 RSV Immunization or 60+ Years (1 - 1-dose 75+ series) 01/20/2024 Meningococcal B Vaccine Aged Out No l onger eligible based on patient's age to complete this topic Meningococcal Vaccine Aged Out No gurvinder kamala eligible based on patient's age to complete this topic RSV Immunizations Under 20 Months Aged Out No longer eligible b ased on patient's age to complete this topic Insurance DR DOMINGUE[address] [place] [address] MEDICAID AETNA MEDICAL REIMBURSEMENTS OF EDDIE Advance Directives * Full Code (Latest Code Status on File) Date Activated Date Inactivated Comments 08/08/2021 12:10 PM 08/09/2021 12:47 PM * Full Code Date Activated Date Inactivated Comments 06/18/2021 12:13 PM 06/19/2021 8:31 AM Care Teams Welder Oxyhydrogen Relationship Specialty Start Date End Date Jaiden Sotelo MD [address] [address] PCP - General FAMILY PRACTICE 06/18/21
--- OUTSIDE RECORDS SUMMARY | 2024-04-18 13:17 | XMS_ITS | Clinical Summary ---
Author Organization [facility] [address] Address [address] [place] [address] Care Team Providers Care Shuttle Buggy Operator Name Role Phone Jaiden Sotelo MD Primary Care Prov ider Lasha Askew MD Unavailable [phone] Lasha Askew MD Unavailable [phone] Allergies Active Allergy Reactions Criticality Noted Date [...] 2 mo F/U with me 3 mo [facility] Dry eye syndrome of both eyes 10/15/2018 Assessment & Plan (10/15/2018 11:01 AM CDT): Retaine tears QID both eyes (OU) and SIDDHARTH at bedtime (QHS) Meibomian gland disease 10/15/2018 Assessment & Plan (10/15/2018 11:02 AM CDT): Warm compresses, digital massage Erectile dysfunction 02/02/2018 Overview (02/02/2018): Added automatically from request for surgery [id number] Primary open angle glaucoma (POAG) of left eye, severe stage 10/21/2017 Assessment & Plan (02/01/2019 2:13 PM ELL TEACHER): Reviewing UBM - unlikely that chafe is [...] amount of preservative CPMEDS for now Fu [place]bed[place] Pseudophakia of both eyes 10/21/2017 Assessment & [...] Glaucoma 10/31/2015 10/21/2017 Nuclear senile cataract 12/06/201409/24 Surgical History Surgery Date Site/Laterality Comments BACK SURGERY Back Surgery - 1998 (Added by TW Conv) KNEE SURGERY Right Knee Surgery - 1970 (Added by TW Conv) LUMBAR FUSION 02/23/2017 - 02/22/2018 CATARACT EXTRACTION Bilateral Medical History Medical History Date Comments Primary open-angle glaucoma, severe stage COAG (chronic open-angle glaucoma), severe stage - (Added by TW Conv) Cataract Hypertension Asthma GERD (gastroesophageal reflux disease) Type 2 diabetes mellitus (HCC) Neuropathy (CMS/HCC) Arthritis ED (erectile dysfunction) Family History Medical History Relation Name Comments Alzheimer's disease Father Family h istory of Alzheimer's disease - (Added by TW Conv) Glaucoma Father Family history of glaucoma - (Added by TW Conv) Macular degeneration Father Family history of macular degeneration - (Added by TW Conv) Alzheimer's disease Mother Family h istory of Alzheimer's disease - (Added by TW Conv) Relation Name Status Comments Father Mother Social [...] on file Legal Sex Male 11:16 PM ELL TEACHER Gender Identity Not on file Sexual Orientation Not on file Obstetrics History Last Filed Vital Signs Vital Sign Reading [...] 12/02/2021 10:49 AM CDT Plan of Treatment Health Maintenance Due Date Last Done Comments Albumin Creatinine Ratio, Urine 1950 Colon Cancer Screening-Colonoscopy 1950 Depression Screening 1950 Hepatitis C Screening 1950 Foot Exam 1950 DTaP/Tdap/Td Vaccine (1 - Tdap) 01/20/1960 Hepatitis B Screening 1967 Pneumococcal vaccine 65+ (1 of 2 - PCV) 01/20/1968 Well Visit 65+ 2014 Lipid Panel 06/30/2018 06/30/2017 Hemoglobin A1C 09/01/2018 03/04/2018 Zoster Vaccine (3 of 3) 12/13/2018 10/18/2018, 01/21 eGFR 03/11/2019 03/11/2018, 03/04/2018 Dilated Eye Exam 04/06/2020 04/06/2019, 11/2018, 10/21/2017 Fall Risk Assessment 12/02/2022 12/02/2021 Influenza Vaccine (#1) 2023 0, 10/15/2018, 02/10/2012 Abdominal Aortic Aneurysm (A AA) Screen Completed 11/06/2021 Medical Devices Implanted Type Area Packer Operator Automatic Device Identifier Shelf Expiration Date Model / Serial / Lot Coloplast Yash [id number] Titan Lock-Out Inflatable Self Contain Fluid Fill Tube Standard Latex Free - [id number] Implanted:Qty: 1 on 03/22/2018 by Jarett Mittal MD at [facility] N/A: Penis Coloplast Yash 10/11/2022 [id number] / / [id number] Coloplast Yash [id number] Titan Coloplast Lock-Out Inflatable Self Contain Fluid Fill Valve Latex Free - [id number] Implanted:Qty: 1 on 03/22/2018 by Jarett Mittal MD at [facility] Left: Groin Coloplast Yash 11/01/2022 [id number] / / [id number] Coloplast Yash [id number] Pros 0d Penile Cyl Pump Set - [id number] Implanted:Qty: 1 on 03/22/2018 by Jarett Mittal MD at [facility] N/A: Penis Coloplast Yash 01/06/2023 [id number] / / [id number] [employer] Angio-Seal Vip 6fr Closere Device [id number] - [id number] Implanted:Qty: 1 on 12/02/2021 at [facility] [employer] 07/23/2022 [id number] / / [id number] Procedures Procedure Name Priority Date/Time Associated Diagnosis Comments CTA ABDOMINAL AORTA AND BILATERAL ILIOFEMORAL RUNOFF Schedule Routine, Read Routine (OP Routine) 11/06/2021 2:14 PM CDT PAD (peripheral artery disease) (CMS/HCC) (HCC) EGFR Routine 03/11/2018 11:28 AM ELL TEACHER Erectile dysfunction due to diseases classified elsewhere HEMOGLOBIN A1C Routine 03/04/2018 12:28 PM ELL TEACHER Preop testing POCT LIPID PANEL Routine 06/30/2017 [...] to ankle with multilevel tandem occlusions of ICING MIXER and SONIDO. Extensive calcific atherosclerosis of tibial [...] to ankle with multilevel tandem occlusions of ICING MIXER and SONIDO. Extensive calcific atherosclerosis of tibial vessels. Dictated by: Rene Jaimes M.D. The radiology attending physician has personally reviewed this study, and had reviewed and/or edited this written report and agrees with it. Electronically signed by: Taz Pak M.D. Lasha Askew MD IM CT PROCEDURES Final Result * eGFR (03/11/2018 11:28 AM ELL TEACHER) eGFR 50 mL/min/1.7 3 m2 ERYN BUSCH Comment: Interpretive Data Reference Interval Normal >/= 90 mL/min/1.73m2 Mildly decreased* 60 - 89 mL/min/1.73m2 Mildly to moderately decreased 45 - 59 mL/min/1.73m2 Moderately to severely decreased 30 - 44 mL/min/1.73m2 Severely decreased 15 - 29 mL/min/1.73m2 Kidney Failure < 15 mL/min/1.73m2 *Relative to young adult level If -Ivorian multiply value by 1.16. Estimated glomerular filtration [...] 2015. Blood specimen (specimen) 03/11/2018 11:28 AM ELL TEACHER 03/11/2018 11:34 AM ELL TEACHER Narrative ERYN - 03/11/2018 11:50 AM ELL TEACHER Jarett Mittal MD LAB BLOOD ORDERABLES Fi nal Result Performing Organization Address [facility] de Phone Number [facility] [address] [employer] [place] [address] * (ABNORMAL) Hemoglobin A1c (03/04/2018 12:28 PM ELL TEACHER) Hgb A1C 5.9(H) 4.0 - 5.6 % ERYN Estimated Average Glucose 123 mg/dL ERYN Comment: The ADA recommends reporting an estimated Average Glucose (eAG) with all Hemoglobin A1c results using the equation derived from a study of 507 normal and diabetic adults. Minority populations were underrepresented and children were not included. (Diabetes Care 31:3620-1550, 2008). The eAG is not equivalent to a fasting glucose. Blood specimen (specimen) 03/04/2018 12:28 PM ELL TEACHER 03/04/2018 1:48 PM ELL TEACHER Narrative ERYN BUSCH - 03/04/2018 2:13 PM ELL TEACHER Jarett Mittal MD LAB BLOOD ORDERABLES Fi nal Result Performing Organization Address [facility] de Phone Number ERYN [address] Department [place] [address] * POCT lipid panel (06/30/2017 4:07 PM CDT) Cholesterol, POC 217 mg/dL Triglycerides, POC >650 mg/dL Blood specimen (specimen) 06/30/2017 4:07 PM CDT Farhat De La Cruz MD POINT OF CARE TEST ORDER JORDYN Final Result from Last 3 Months or Most Recently Relevant to Health Maintenance Insurance [facility] AETNA MEDICARE GOLD AETNA MEDICARE GOLD IDPA Advance Directives For more information, please contact: [phone] * Full Code (Latest Code Status on File) Date Activated Date Inactivated Comments 12/02/2021 10:48 AM 12/03/2021 5:04 AM * Full Code Date Activated Date Inactivated Comments 03/22/2018 1:47 PM 03/23/2018 8:17 PM Care Teams Shuttle Buggy Operator Relationship Specialty Start Date End Date Jaiden Sotelo MD [address] [place] [address] PCP - General 06/11/16 Lasha Askew MD [address] [facility] [address] [place] [address] Consulting Physician Vascular & Interven Rad 12/04/21 Lasha Askew MD [address] [facility] [address] [place] [address] Consulting Physician Vascular & Interven Rad 01/10/22
--- OUTSIDE RECORDS SUMMARY | 2024-04-18 13:17 | XMS_ITS | Encounter Summary ---
Author Organization [facility] Address [address] [place] [address] Care Team Providers Care Standpipe Tender Name Role Phone Jaiden Sotelo MD Primary Care Provider + Reason for Visit * Reason Onset Date Comments Appointment 05/11/2020 Encounter Details Date Type Department Care Team (Late st Contact Info) Description 05/11/2020 Telephone [facility] [address] [place] [id number] Daphne Valera Appointment Social History Tobacco Use Types Packs/Day Years [...] No 11/30/2019 documented as of this encounter Miscellaneous Notes * Telephone Encounter - Daphne Valera - 05/11/2020 10:20 AM CDT Left vm to get x-ray prior to appt. Left number to call back if any questions documented in this encounter Plan of Treatment Not on file documented as of this encounter Visit Diagnoses Not on filedocumented in this encounter Care Teams Standpipe Tender Relationship Specialty Start Date End Date Jaiden Sotelo MD [address] [address] PCP - General Family Medicine 10/01/16 documented as of this encounter
[2024-04-18 13:35] LABS: Vitamin D 25 Hydroxy 85.1 ng/mL
[2024-04-18 14:18] LABS: Hemoglobin A1C 7.1 % (<5.7)
== END 2024-04-18 11:14 | disposition home or self-care (01) ==
LOC: ANHLAB 11:18
PROVIDERS: PCP Family Medicine Adolescent Medicine; Visit Provider Internal Medicine Nephrology
DX: I12.9 Hypertensive chronic kidney disease with stage 1 through stage 4 chronic kidney disease, or unspecified chronic kidney disease (principal); E11.22 Type 2 diabetes mellitus with diabetic chronic kidney disease; N25.81 Secondary hyperparathyroidism of renal origin; N18.32 Chronic kidney disease, stage 3b; E55.9 Vitamin D deficiency, unspecified
CPT/HCPCS: 36415; 80053; 80069; 82306; 82570; 83036; 83970; 84156

== ENCOUNTER 2024-08-16 13:49 | Outpatient (CLI) | payer MEDICARE, SELFPAY ==
[2024-08-16 14:23] LABS: Basophils Absolute Auto 0.1 K/mm3 (0.0-0.1); Basophils Percent Auto 0.5 % (0.2-1.2); Eosinophils Absolute Auto 0.3 K/mm3 (0-0.3); Eosinophils Percent Auto 2.6 % (0-4.4); Hematocrit 37.3 % (42.0-52.0); Hemoglobin 12.2 g/dL (14.0-18.0); Immature Granulocyte Absolute 0.09 K/mm3 (0.00-0.031); Immature Granulocyte Percent A 0.8 % (0-0.5); Lymphocytes Absolute Auto 1.22 K/mm3 (0.9-3.2); Lymphocytes Percent Auto 10.8 % (18.3-44.2); Mean Corpuscular HGB Conc 32.7 g/dl (32-36); Mean Corpuscular Hemoglobin 28.8 pg (26-34); Mean Platelet Volume 9.9 fl (7.4-10.4); Monocytes Absolute Auto 1.1 K/mm3 (0.1-0.6); Neutrophils Absolute Auto 8.5 K/mm3 (1.3-6.7); Neutrophils Percent Auto 75.3 % (45.5-73.1); Platelet Count Result 150 k/mm3 (150-375); Red Blood Count 4.24 M/mm3 (4.6-6.20); Red Cell Distribution Width 14.6 % (11.5-14.5); White Blood Count 11.3 K/mm3 (4.5-10.0)
[2024-08-16 14:36] LABS: Alanine Aminotransferase 23 U/L (6-50); Albumin Level 4.1 g/dL (3.5-5.1); Alkaline Phosphatase 60 U/L (38-126); Anion Gap 13 mmol/L (4-12); Aspartate Amino Transferase 36 U/L (17-59); Bilirubin,Total 0.9 mg/dL (0.2-1.3); Blood Urea Nitrogen 32 mg/dL (9-20); Calcium 9.6 mg/dL (8.4-10.2); Carbon Dioxide 22 mmol/L (22-30); Chloride 100 mmol/L (98-107); Estimated Glomerular Filt Rate 34; Glucose 206 mg/dL (65-110); Sodium 135 mmol/L (137-145); Total Protein 7.4 g/dL (6.3-8.2)
[2024-08-16 15:01] LABS: Hemoglobin A1C 7.2 % (<5.7)
== END 2024-08-16 13:50 | disposition home or self-care (01) ==
PROVIDERS: PCP Nurse Practitioner Family; Visit Provider Nurse Practitioner Family
DX: R41.0 Disorientation, unspecified (principal); I12.9 Hypertensive chronic kidney disease with stage 1 through stage 4 chronic kidney disease, or unspecified chronic kidney disease; N18.30 Chronic kidney disease, stage 3 unspecified; I50.812 Chronic right heart failure; E78.2 Mixed hyperlipidemia; E11.22 Type 2 diabetes mellitus with diabetic chronic kidney disease; M81.0 Age-related osteoporosis without current pathological fracture; N25.81 Secondary hyperparathyroidism of renal origin; E53.8 Deficiency of other specified B group vitamins; E55.9 Vitamin D deficiency, unspecified
CPT/HCPCS: 36415; 80053; 82306; 82607; 83036; 83735; 84443; 85025

== ENCOUNTER 2024-08-17 11:44 | Inpatient (IN) | payer MEDICARE, MEDICAID, SELFPAY ==
--- NOTE | ~2024-08-17 | CT_ITS ---
EXAM: CT cervical spine wo con - 08/17/2024 12:30 CDT History: 74 years old Male with ams, falls COMPARISON: 02/11/2024 PROCEDURE: CT of the cervical spine without contrast. Axial, sagittal and coronal reformatted plane s were evaluated. Automatic exposure control was used for this study. FINDINGS: No acute fracture or subluxation. No significant interval change since 2023. Straightening of cervical lordosis, likely positional or may be related to muscle spasm. Multilevel d egenerative changes of the cervical spine include varying degrees of disk space narrowing, endplate o steophytosis as well as facet and uncal arthropathy. Prevertebral soft tissues are within normal limi ts. Visualized lung apices are clear. IMPRESSION: No evidence for cervical spine fracture or traumatic subluxation. Multilevel degenerative changes of the cervical spine. Reviewed, dictated and finalized at location A.
--- NOTE | ~2024-08-17 | CT_ITS ---
CT brain wo con Ordering provider: Yenifer Mccall MD History: 74 years Male with . ams, falls . Comparison: None. Technique: CT of the head without contrast. Radiation reduction technique utilized. The dose-length p roduct was 681 mGy-cm. FINDINGS: BRAIN PARENCHYMA AND CSF SPACES: Mild leukoaraiosis and diffuse cortical atrophy. Mild atheromatous d isease. No midline shift, mass effect or hemorrhage. The brain parenchyma and CSF spaces are otherwi se normal. VISUALIZED PARANASAL SINUSES: Well aerated. MASTOIDS: Well aerated. BONES: The bones appear intact. SOFT TISSUES: Visualized nasopharynx is normal. Right frontal scalp hematoma. Otherwise, Superficial soft tissues are normal. IMPRESSION: No acute intracranial findings. Reviewed, dictated and finalized at location A.
--- NOTE | ~2024-08-17 | XR_ITS ---
XR chest 2V Ordering provider: Mikhail Cervantes MD History: 74 years Male with . weak . Comparison: May 28, 2023 FINDINGS: MEDIASTINUM: The cardiac silhouette is not enlarged. LUNGS: No infiltrates, effusions or pneumothorax. OTHER: No free air under the diaphragm. Postoperative changes in the thoracolumbar area IMPRESSION: No acute cardiopulmonary pathology. Reviewed, dictated and finalized at location A.
[2024-08-17 11:39] VITALS: BP 146/77; PULSE 93; RESP 20; TEMP 37.3; O2SAT 97
--- NOTE | 2024-08-17 11:57 | ECG_ITS ---
Test Date: 2024-08-17 11:58:33 Measurements Intervals [place] Rate: 92 P: 38 ME: 174 QRS: 50 QRSD: 141 T: 3 QT: 365 QTc: 454 Interpretive Statements SINUS RHYTHM RIGHT BUNDLE BRANCH BLOCK BASELINE ARTIFACT- I, III, AVR, AVL, AVF, V4-V6 ABNORMAL ECG No previous ECG available for comparison Electronically Signed On 08-17-2024 12:35:51 CDT by Abrahan Felipe D.O.
[2024-08-17 12:08] LABS: Basophils Absolute Auto 0.1 K/mm3 (0.0-0.1); Basophils Percent Auto 0.4 % (0.2-1.2); Hematocrit 36.7 % (42.0-52.0); Hemoglobin 12.1 g/dL (14.0-18.0); Immature Granulocyte Absolute 0.08 K/mm3 (0.00-0.031); Immature Granulocyte Percent A 0.6 % (0-0.5); Lymphocytes Absolute Auto 0.79 K/mm3 (0.9-3.2); Lymphocytes Percent Auto 6.2 % (18.3-44.2); Mean Corpuscular Hemoglobin 28.8 pg (26-34); Mean Corpuscular Volume 87.4 fl (80-100); Mean Platelet Volume 10.1 fl (7.4-10.4); Monocytes Absolute Auto 1.4 K/mm3 (0.1-0.6); Monocytes Percent Auto 11.1 % (2.6-8.5); Neutrophils Absolute Auto 10.5 K/mm3 (1.3-6.7); Neutrophils Percent Auto 81.7 % (45.5-73.1); Platelet Count Result 143 k/mm3 (150-375); Red Cell Distribution Width 14.3 % (11.5-14.5); White Blood Count 12.8 K/mm3 (4.5-10.0)
[2024-08-17 12:18] LABS: Add Urine Microscopic? YES; Appearance Urine Turbid (Clear); Bacteria Urine 4+ /hpf; Bilirubin Urine Negative (Negative); Blood Urine 3+ (Negative); Color Urine Yellow (Yellow); Glucose Urine UA Negative (Negative); Ketones Urine 1+ mg/dL (Negative); Leukocyte Esterase Ur 3+ LEU/UL (Negative); Need Manual Microscopic Reviewed; Nitrate Urine Positive (Negative); Protein Urine 3+ mg/dL (Negative); Specific Grav Ur 1.013 (1.001-1.035); Squamous Epithelial Cell Urine Few /hpf (Few); WBC Clumps Urine Present /HPF; WBC Urine >100 /hpf (0-3)
--- NOTE | 2024-08-17 12:25 | ED_ITS ---
HPI - Weakness General Chief complaint: Weakness Stated complaint: weak, increased falls, AMS, pain all over Time Seen by Provider: 08/17/24 12:15 Source: patient and RN notes reviewed Mode of arrival: EMS Limitations: no limitations History of Present Illness HPI Narrative: Patient presents with report of altered mental status/decrease level of consciousness and multiple falls. Caregiver and daughter in-law had reported the patient had not been acting like himself. EMS had reported that they had presented to patient's residence 3 times this week for a lift this is due to falls but he had refused transportation each time. He is alert oriented x4 at baseline but x1 today. History of diabetes mellitus on metformin. Blood sugar for EMS with 181 mg/dL. It was reported that in route he kept asking to urinate but was unable to do so. Patient had initially reported pain all over for EMS but denies any pain on triage in denies any pain to myself including no headache, chest pain, abdominal plain, extremity pain. He denies any shortness of breath, vomiting, cough. No history solid organ transplant or stem cell replacement per patient. Patient has no complaints. He states he eats falling because he is getting old. Related Data Home Medications ?Medication ?Instructions ?Recorded ?Confirmed ?Last Taken ?Type brimonidine 0.2 % eye drops 1 drp ophthalmic (eye) DAILY 07/11/19 08/16/24 05/22/23 09:45 History B-complex with vitamin C 1 tablet PO DAILY 04/01/21 08/16/24 05/22/23 09:45 History ascorbic acid (vitamin C) 500 mg 500 mg PO DAILY 04/01/21 08/16/24 05/22/23 09:45 History tablet latanoprost 0.005 % eye drops 1 drp EACH EYE HS 04/01/21 08/16/24 05/18/23 21:00 History pseudoephedrine HCl 120 mg 120 mg PO Q12H PRN Congestion 04/01/21 08/16/24 05/22/23 09:45 History tablet,extended release (Wal-Phed D) zinc 50 mg tablet 50 mg PO DAILY 04/01/21 08/16/24 05/21/23 13:30 History aspirin 81 mg tablet,delayed 81 mg PO DAILY 05/21/22 08/16/24 05/18/23 09:00 History release magnesium 200 mg tablet 200 mg PO DAILY 05/21/22 08/16/24 05/21/23 12:45 History acetaminophen 500 mg capsule 1,000 mg PO Q6H PRN Pain (Scale 04/07/23 08/16/24 Unknown History Score 1-3) timolol maleate 0.5 % eye drops 1 drp EACH EYE DAILY 05/19/23 08/16/24 05/22/23 09:45 History tamsulosin 0.4 mg capsule 0.8 mg PO DAILY 08/16/24 08/16/24 Unknown History Allergies Allergy/AdvReac Type Severity Reaction Status Date / Time Antihistamines - Alkylamine AdvReac Intermediate Hallucinati Verified 06/29/24 13:58 ng [facility] Past Medical History Medical History BMI 28.0-28.9,adult Urinary retention 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 Numbness and tingling in both hands 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 strength of left hand Numbness and tingling in left hand Left hand pain Arthritis UTI (urinary tract infection), bacterial CHF (congestive heart failure) Atrial fib/flutter, transient Wears glasses Pulmonary embolism Stage 3b chronic kidney disease (CKD) Femur fracture, right (04/11/21) History of alcohol abuse Hypokalemia (Unknown) Knee effusion, right Hyperlipidemia (Unknown) Closed fracture of right hip (04/11/21) Osteoporosis BPH with obstruction/lower urinary tract symptoms (Unknown) Chronic pain Low back pain, unspecified Mild persistent asthma, uncomplicated Polyneuropathy, unspecified Primary open-angle glaucoma, bilateral, moderate stage GERD (gastroesophageal reflux disease) (Unknown) Diabetes mellitus Surgical History Surgical History History of hip surgery (04/2023) ORIF left IT hip fx History of hip surgery Right Gamma Khoi 2021- Dr. Marquez History of penile implant History of knee surgery Previous back surgery Family History Family History Father CAD (coronary artery disease) Alzheimer disease Acute myocardial infarction Heart disease Hypertension Mother Alzheimer disease Hypertension Other Diabetes mellitus Social History Social History Social History: The patient is a lifelong nonsmoker. The patient does not use any alcohol marijuana or illicit drugs. 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 He is . He has 1 son who is the durable power research attorney for healthcare. 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 HEAD: Normocephalic, atraumatic. EYES: Non injected, non icteric ENT: Nares clear, no rhinorrhea or epistaxis. Gross auditory acuity intact. Slightly bulbous nose with prominent telangiectasias. NECK: Supple. No meningismus. CHEST: Speaking in full sentences. No respiratory distress. HEART: Regular rate and rhythm. . ABDOMEN: Soft, nondistended. No rigidity or guarding. Not peritoneal EXTREMITIES: Normal range of motion. No bilateral lower extremity edema. SKIN: Warm, dry. Very superficial lacerations on legs but otherwise no mónica rash including no purpura. NEURO: No focal deficits. Alert and oriented to self but location (hospital) but does not know year. Answering questions. Following commands. Normal speech without aphasia or dysarthria though slightly slowed. PSYCH: Congruent mood and affect. Course Vital Signs Vital signs: Vital Signs Temperature 99.1 F 08/17/24 11:39 Pulse Rate 93 08/17/24 11:39 Respiratory Rate 20 08/17/24 11:39 Blood Pressure 146/77 H 08/17/24 11:39 Pulse Oximetry 97 08/17/24 11:39 Oxygen Delivery Room Air 08/17/24 11:39 Temperature 99.1 F 08/17/24 11:39 Pulse Rate 88 08/17/24 14:08 Respiratory Rate 19 08/17/24 14:08 Blood Pressure 133/77 08/17/24 14:08 Pulse Oximetry 99 08/17/24 14:08 Oxygen Delivery Room Air 08/17/24 11:39 MDM - Weakness MDM Narrative Medical decision making narrative: Patient presents with report of frequent falls, altered mental status, increased weakness. Was initially reported that he had complained of pain all over although he denies this and has no complaints. In route he kept asking to urinate but was unable to do so per EMS. In the emergency department he is afebrile with acceptable vital signs a slightly elevated systolic blood pressure. Leukocytosis, normocytic anemia, and mild thrombocytopenia. The thrombocytopenia had previously been appreciated and then with resolution. The anemia stable. Creatinine appears stable from baseline, consistent with CKD. Hyperglycemia without anion gap and not frankly acidotic. Patient appears to have urinary tract infection on urinalysis. Previous urine culture from 05/12/2021 grew coagulase-negative Staph (not saprophyti). Culture is reviewed and at that time was sensitive to vancomycin, gentamicin, nitrofurantoin, tetracycline (resistant to ciprofloxacin/levofloxacin, oxacillin, and Bactrim and moxifloxacin). Will start ceftriaxone but also add the vancomycin given this detail. Mildly elevated CPK. Will give 1 L IV fluids. 2nd L IV fluids ordered given flags for sepsis though Lactic acid normal and otherwise hemodynamically stable. Considered TTP given the urinary complaints, AMS, anemia, and mild thrombocytopenia however other etiologies seem more likely. Patient failed ability to ambulate even with assistance per nurse. Discussed this with the patient and informed him of his urinary tract infection in the need for admission given this. He verifies understanding. Patient discussed with on-call hospitalist SHIMON Maynard. Accepted for admission. PT/OT orders for DC planning placed. Differential Diagnosis Differential diagnosis: Likely acute myocardial infarction, anemia, hypoglycemia, hypothyroidism, rhabdomyolysis, sepsis, dehydration and other (TTP; infection (UTI, pneumonia, acute viral syndrome); deconditioning; dementia, Wernecke's/ Korsakoff; liver failure; renal failure; encephalitis; normal pressure hydrocephalus) Lab Data 08/17/24 12:03 08/17/24 12:02 Labs: Lab Results 08/17/24 08/17/24 08/17/24 Range/Units 12:02 12:03 12:30 WBC 12.8 H (4.5-10.0) K/mm3 RBC 4.20 L (4.6-6.20) M/mm3 Hgb 12.1 L (14.0-18.0) g/dL Hct 36.7 L (42.0-52.0) % MCV 87.4 (80-100) fl MCH 28.8 (26-34) pg MCHC 33.0 (32-36) g/dl RDW 14.3 (11.5-14.5) % Plt Count 143 L (150-375) k/mm3 MPV 10.1 (7.4-10.4) fl Immature Gran % (Auto) 0.6 H (0-0.5) % Neut % (Auto) 81.7 H (45.5-73.1) % Lymph % (Auto) 6.2 L (18.3-44.2) % Dawson % (Auto) 11.1 H (2.6-8.5) % Eos % (Auto) 0.0 (0-4.4) % Baso % (Auto) 0.4 (0.2-1.2) % Lymph # (Auto) 0.79 L (0.9-3.2) K/mm3 [place] # (Auto) 1.4 H (0.1-0.6) K/mm3 Eos # (Auto) 0.0 (0-0.3) K/mm3 Baso # (Auto) 0.1 (0.0-0.1) K/mm3 Abs Immat Gran (auto) 0.08 H (0.00-0.031) K/mm3 Absolute Neuts (auto) 10.5 H (1.3-6.7) K/mm3 Absolute Nucleated RBC 0.000 (0.0-0.012) K/mm3 Nucleated RBC % 0.0 (0.0-0.2) % Absolute Retic 0.09 (0.02-0.10) 10^6/uL Percent Retic 2.18 (0.7-4.3) % Immature Retic Fraction 20.3 H (3.0-15.9) % Retic Hgb Content 27.5 L (28.2-36.6) pg Haptoglobin PT 14.7 (11.1-14.7) Seconds INR 1.2 APTT 26.4 (22.3-36.8) Seconds Fibrinogen 494 (215-510) mg/dl [id number] Activity [id number] Activity Intrp Sodium 137 (137-145) mmol/L Potassium 3.8 (3.4-5.0) mmol/L Chloride 104 (98-107) mmol/L Carbon Dioxide 21 L (22-30) mmol/L Anion Gap 12 (4-12) mmol/L BUN 29 H (9-20) mg/dL Creatinine 1.90 H (0.7-1.3) mg/dL Estim Creat Clear Calc 33 ml/min Estimated GFR 35 L (59 - ) Glucose 211 H (65-110) mg/dL Lactic Acid (0.7-2.0) mmol/L Calcium 9.0 (8.4-10.2) mg/dL Total Bilirubin 1.0 (0.2-1.3) mg/dL AST 39 (17-59) U/L ALT 21 (6-50) U/L Alkaline Phosphatase 58 (38-126) U/L Ammonia (9-30) umol/L Lactate Dehydrogenase 211 (120-246) U/L Total Creatine Kinase 734 H (55-170) U/L Troponin I < 0.012 (0.000-0.034) ng/mL Total Protein 7.5 (6.3-8.2) g/dL Albumin 4.0 (3.5-5.1) g/dL TSH 1.900 (0.465-4.680) uIU/mL Urine Color Yellow (Yellow) Urine Appearance Turbid H (Clear) Urine pH 6.0 (5.0-9.0) Ur Specific [place] 1.013 (1.001-1.035) Urine Protein 3+ H (Negative) mg/dL Urine Glucose (UA) Negative (Negative) mg/dL Urine Ketones 1+ H (Negative) mg/dL Ur Blood (Man) 3+ H (Negative) Urine Nitrate Positive H (Negative) Urine Bilirubin Negative (Negative) Urine Urobilinogen 1.0 (<2.0) mg/dL Add Ur Microanalysis Reviewed Leukocyte Esterase Rfl 3+ H (Negative) ELVIRA/UL Urine RBC 11-20 H (0-2) /hpf Urine WBC >100 H (0-3) /hpf Urine WBC Clumps Present H (None) /HPF Ur Squamous Epith Cells Few (Few) /hpf Urine Bacteria 4+ /hpf Urine Casts 6-10 Salicylates (2-20) mg/dL Urine Opiates Screen Negative (Negative) Urine Methadone Screen Negative (Negative) Acetaminophen (10-30) ug/mL Ur Barbiturates Screen Negative (Negative) Ur Phencyclidine Scrn Negative (Negative) Ur Amphetamine Screen Negative (Negative) U Benzodiazepines Scrn Negative (Negative) Urine Cocaine Screen Negative (Negative) U Cannabinoids Screen Negative (Negative) Ethyl Alcohol (<10) mg/dL Influenza A (RT-PCR) Negative (Negative) Influenza B (RT-PCR) Negative (Negative) RSV (RT-PCR) Negative (Negative) SARS-CoV-2 RNA (RT-PCR) Negative (Negative) 08/17/24 08/17/24 Range/Units 12:45 12:55 WBC (4.5-10.0) K/mm3 RBC (4.6-6.20) M/mm3 Hgb (14.0-18.0) g/dL Hct (42.0-52.0) % MCV (80-100) fl MCH (26-34) pg MCHC (32-36) g/dl RDW (11.5-14.5) % Plt Count (150-375) k/mm3 MPV (7.4-10.4) fl Immature Gran % (Auto) (0-0.5) % Neut % (Auto) (45.5-73.1) % Lymph % (Auto) (18.3-44.2) % Dawson % (Auto) (2.6-8.5) % Eos % (Auto) (0-4.4) % Baso % (Auto) (0.2-1.2) % Lymph # (Auto) (0.9-3.2) K/mm3 [place] # (Auto) (0.1-0.6) K/mm3 Eos # (Auto) (0-0.3) K/mm3 Baso # (Auto) (0.0-0.1) K/mm3 Abs Immat Gran (auto) (0.00-0.031) K/mm3 Absolute Neuts (auto) (1.3-6.7) K/mm3 Absolute Nucleated RBC (0.0-0.012) K/mm3 Nucleated RBC % (0.0-0.2) % Absolute Retic (0.02-0.10) 10^6/uL Percent Retic (0.7-4.3) % Immature Retic Fraction (3.0-15.9) % Retic Hgb Content (28.2-36.6) pg Haptoglobin Pending PT (11.1-14.7) Seconds INR APTT (22.3-36.8) Seconds Fibrinogen (215-510) mg/dl [id number] Activity Pending [id number] Activity Intrp Pending Sodium (137-145) mmol/L Potassium (3.4-5.0) mmol/L Chloride (98-107) mmol/L Carbon Dioxide (22-30) mmol/L Anion Gap (4-12) mmol/L BUN (9-20) mg/dL Creatinine (0.7-1.3) mg/dL Estim Creat Clear Calc ml/min Estimated GFR (59 - ) Glucose (65-110) mg/dL Lactic Acid 1.1 (0.7-2.0) mmol/L Calcium (8.4-10.2) mg/dL Total Bilirubin (0.2-1.3) mg/dL AST (17-59) U/L ALT (6-50) U/L Alkaline Phosphatase (38-126) U/L Ammonia < 9 L (9-30) umol/L Lactate Dehydrogenase (120-246) U/L Total Creatine Kinase (55-170) U/L Troponin I (0.000-0.034) ng/mL Total Protein (6.3-8.2) g/dL Albumin (3.5-5.1) g/dL TSH (0.465-4.680) uIU/mL Urine Color (Yellow) Urine Appearance (Clear) Urine pH (5.0-9.0) Ur Specific [place] (1.001-1.035) Urine Protein (Negative) mg/dL Urine Glucose (UA) (Negative) mg/dL Urine Ketones (Negative) mg/dL Ur Blood (Man) (Negative) Urine Nitrate (Negative) Urine Bilirubin (Negative) Urine Urobilinogen (<2.0) mg/dL Add Ur Microanalysis Leukocyte Esterase Rfl (Negative) ELVIRA/UL Urine RBC (0-2) /hpf Urine WBC (0-3) /hpf Urine WBC Clumps (None) /HPF Ur Squamous Epith Cells (Few) /hpf Urine Bacteria /hpf Urine Casts Salicylates < 1.0 L (2-20) mg/dL Urine Opiates Screen (Negative) Urine Methadone Screen (Negative) Acetaminophen < 10 L (10-30) ug/mL Ur Barbiturates Screen (Negative) Ur Phencyclidine Scrn (Negative) Ur Amphetamine Screen (Negative) U Benzodiazepines Scrn (Negative) Urine Cocaine Screen (Negative) U Cannabinoids Screen (Negative) Ethyl Alcohol < 10 (<10) mg/dL Influenza A (RT-PCR) (Negative) Influenza B (RT-PCR) (Negative) RSV (RT-PCR) (Negative) SARS-CoV-2 RNA (RT-PCR) (Negative) ECG Data EKG #1: Attestation: I personally reviewed and interpreted this ECG as follows: ECG completion date: 08/17/24 ECG completion time: 11:58 Prior ECG tracings: available for review (Right bundle-branch block/interventricular conduction delay appreciated on previous EKGs) Interpretation: Normal sinus rhythm at a rate of 92 beats per minute. AR interval 174. QRS 141. QT/QTC 365/415. RBBB given QRS greater [id number]; RSR' M-shaped pattern in V1-V3; wide, slurred S wave in lateral leads (I, aVL, V5-6). T-wave inversion in lead 3, possibly due to lead placement. No other T-wave inversions in precordial leads V4 through V6. T-wave inversion in 3 and AVF but upright in normal in contiguous inferior lead 2. Discharge Plan Discharge Clinical Impression: Frequent falls, Leukocytosis, Anemia, Thrombocytopenia, CKD (chronic kidney disease), Hyperglycemia due to diabetes mellitus, Weakness, Urinary tract infection in male, Altered mental state, Degenerative disc disease, cervical Patient Disposition: Still a Patient Condition: Stable Patient Language: [place] Prescriptions: No Action brimonidine 0.2 % drops 1 drp ophthalmic (eye) DAILY latanoprost 0.005 % drops 1 drp EACH EYE HS zinc 50 mg tablet 50 mg PO DAILY ascorbic acid (vitamin C) 500 mg tablet 500 mg PO DAILY B-complex with vitamin C Tablet 1 tablet PO DAILY pseudoephedrine HCl [Wal-Phed D] 120 mg tablet extended release 120 mg PO Q12H PRN (Reason: Congestion) aspirin 81 mg tablet,delayed release (DR/EC) 81 mg PO DAILY magnesium 200 mg tablet 200 mg PO DAILY acetaminophen 500 mg capsule 1,000 mg PO Q6H PRN (Reason: Pain (Scale Score 1-3)) triamcinolone acetonide 0.1 % cream 1 applic topical BID Qty: 454 0RF trazodone 50 mg tablet See Rx Instructions PO QHS PRN (Reason: insomnia) Qty: 90 0RF Rx Instructions: 1/2-1 tab orally every day at bedtime PRN; prednisone 20 mg tablet 20 mg PO .COMPLEX Qty: 18 0RF Rx Instructions: 20 mg orally 3 tabs x 3 days, 2 tabs x 3 days, 1 tabs x 3 days; tamsulosin 0.4 mg capsule 0.8 mg PO DAILY cyanocobalamin (vitamin B-12) [Vitamin B-12] 1,000 mcg Tablet 1,000 mcg PO QAM Qty: 30 0RF timolol maleate 0.5 % drops 1 drp EACH EYE DAILY polyethylene glycol 3350 [Miralax] 17 gram Powder In Packet 17 g PO QAM Qty: 30 0RF atorvastatin 20 mg tablet 20 mg PO DAILY Qty: 90 2RF Tymlos 80 mcg (3,120 mcg/1.56 mL) pen injector 80 mcg subcut DAILY Qty: 1.56 11RF Rx Instructions: inject into abdomen; do not inject within 2 inches of belly button/navel; rotate sites doxazosin 2 mg tablet 2 mg PO DAILY Qty: 90 3RF furosemide 20 mg tablet 20 mg PO BID Qty: 60 6RF metformin 500 mg tablet extended release 24 hr 1,000 mg PO DAILY Qty: 180 2RF gabapentin 600 mg tablet 1,200 mg PO TID Qty: 360 2RF calcitriol 0.25 mcg capsule See Rx Instructions .ROUTE .COMPLEX Qty: 12 12RF Dose Instruction: TAKE 1 CAPSULE BY MOUTH THREE TIMES WEEKLY. TAKE ON MONDAYS, WEDNESDAYS, AND FRIDAYS Rx Instructions: TAKE 1 CAPSULE BY MOUTH THREE TIMES WEEKLY. TAKE ON MONDAYS, WEDNESDAYS, AND FRIDAYS amlodipine [Norvasc] 5 mg tablet 10 mg PO QAM Qty: 60 5RF Follow-up/Referrals: Brittany Hwang, [employer] IN[employer] [Primary Care Provider] - Time of Disposition: 15:44
[2024-08-17 12:26] LABS: Alanine Aminotransferase 21 U/L (6-50); Alkaline Phosphatase 58 U/L (38-126); Anion Gap 12 mmol/L (4-12); Aspartate Amino Transferase 39 U/L (17-59); Blood Urea Nitrogen 29 mg/dL (9-20); Carbon Dioxide 21 mmol/L (22-30); Chloride 104 mmol/L (98-107); Estimated CRCL calculation 33 ml/min; Estimated Glomerular Filt Rate 35; Glucose 211 mg/dL (65-110); Potassium 3.8 mmol/L (3.4-5.0); Sodium 137 mmol/L (137-145); Total Protein 7.5 g/dL (6.3-8.2)
[2024-08-17 12:53] LABS: Creatine Kinase 734 U/L (55-170)
[2024-08-17 12:56] LABS: Immature Reticulocyte Fraction 20.3 % (3.0-15.9); Reticulocyte Hemoglobin Conten 27.5 pg (28.2-36.6); Reticulocyte Percent 2.18 % (0.7-4.3); Reticulocytes Absolute 0.09 10^6/uL (0.02-0.10)
[2024-08-17 12:58] LABS: INR 1.2; Partial Thromboplastin Time 26.4 Seconds (22.3-36.8); Prothrombin Time 14.7 Seconds (11.1-14.7)
[2024-08-17 12:59] LABS: Fibrinogen 494 mg/dl (215-510)
[2024-08-17 13:02] LABS: Amphetamine Screen Urine Negative (Negative); Barbiturate Screen Urine Negative (Negative); Benzodiazepines Screen Urine Negative (Negative); Cannabinoid Screen Urine Negative (Negative); Cocaine Screen Urine Negative (Negative); Methadone Screen Urine Negative (Negative); Opiate Screen Urine Negative (Negative); Phencyclidine Screen Urine Negative (Negative)
[2024-08-17 13:03] LABS: Acetaminophen < 10 ug/mL (10-30); Ammonia < 9 umol/L (9-30); Ethanol < 10 mg/dL (<10); Lactic Acid Reflex 1.1 mmol/L (0.7-2.0); Salicylate < 1.0 mg/dL (2-20)
[2024-08-17 13:08] LABS: Troponin I < 0.012 ng/mL (0.000-0.034)
[2024-08-17 13:10] LABS: Influenza A QL RT-PCR Negative (Negative); Influenza B QL RT-PCR Negative (Negative); RSV RNA, RT-PCR. Negative (Negative); SARS-CoV-2 RNA PCR Negative (Negative)
[2024-08-17 13:16] LABS: Lactate Dehydrogenase 211 U/L (120-246)
[2024-08-17] MEDS: SODIUM CHLORIDE 0.9% IV 1,000 ML 999 ML IV CONT ×2 (13:25→14:07)
[2024-08-17 14:08] VITALS: BP 133/77; PULSE 88; RESP 19; O2SAT 99
[2024-08-17] MEDS: VANCOMYCIN 1,500 MG/NS 500 ML 1,500 MG/500 ML BAG 250 MG IVPB (15:21)
--- NOTE | 2024-08-17 15:52 | PM.IMHP ---
H&P: HPI History of Present Illness Date/Time: 08/17/24 15:52 Chief Complaint: Falls, Confusion Narrative: 74 y/o M with PMH of urinary retention, CHF, AFib/flutter, PE, CKD, alcohol abuse, osteoporosis, BPH, asthma, GERD, diabetes, and polyneuropathy presents here with multiple falls and confusion. The patient presents here from home via EMS for further evaluation of multiple falls, weakness, and increased confusion. HPI detained through chart review, patient interview, and EMS report. Per [id number], and caregiver the patient has not been acting like himself. EMS reported they have been to the patient's residence approximately 3 times this week for a lift assist secondary to falls. Patient refused transport 3 times prior. At baseline the patient is orientated A&Ox4, arrived to the emergency department A&O x1. EMS reported that the patient complained of inability to urinate while in route. He denies accompanying abdominal pain, suprapubic pain, dysuria, urinary frequency, fever, chills, or body aches. He has a history of weakness and numbness to his left hand and weakness in his left lower extremity. The left lower extremity weakness has been ongoing since October of 2023. Left hand weakness was first noted in his office visit notes in January of 2024. He recently followed up with neuro surgery in June of 2024 -during this visit the provider recommended an MRI of his cervical spine/brain with and without contrast as well as an EMG of his bilateral upper extremities. The patient reports he has not had these images/EMG completed. He currently lives at home alone and has a caregiver who helps 3 times per week. Currently uses a walker. Patient feels he is falling more because he is getting old. Initial VS at presentation: 99.1? F, HR 93, R 20, 146/77, and 97% on RA. ED workup showed: WBC 12.8, hemoglobin 12.1, normal coags, creatinine 1.9 and GFR 35 (at baseline), glucose 211, lactic 1.1, ammonia negative, CK 734, and initial troponin negative. UA suggestive of UTI. UDS negative, ethanol negative, viral PCR negative. CXR showed no acute cardiopulmonary pathology. Head CT showed no acute intracranial findings. C-spine CT showed no evidence of cervical spine fracture or traumatic subluxation, multilevel degenerative changes of the C-spine. Review of Systems Review of Systems: All systems reviewed & are unremarkable except as noted in HPI and below PMFSH Past Medical History Medical History BMI 28.0-28.9,adult Urinary retention Decreased emergency planning and response manager strength of right hand Numbness and tingling in both hands Decreased emergency planning and response manager strength of left hand Numbness and tingling in left hand Left hand pain Arthritis UTI (urinary tract infection), bacterial CHF (congestive heart failure) Atrial fib/flutter, transient Wears glasses Pulmonary embolism Stage 3b chronic kidney disease (CKD) Femur fracture, right (04/11/21) History of alcohol abuse Hypokalemia (Unknown) Knee effusion, right Hyperlipidemia (Unknown) Closed fracture of right hip (04/11/21) Osteoporosis BPH with obstruction/lower urinary tract symptoms (Unknown) Chronic pain Low back pain, unspecified Mild persistent asthma, uncomplicated Polyneuropathy, unspecified Primary open-angle glaucoma, bilateral, moderate stage GERD (gastroesophageal reflux disease) (Unknown) Diabetes mellitus Surgical History Surgical History History of hip surgery (04/2023) ORIF left IT hip fx History of hip surgery Right Gamma Khoi 2021- Dr. Marquez History of penile implant History of knee surgery Previous back surgery Family History Family History Father CAD (coronary artery disease) Alzheimer disease Acute myocardial infarction Heart disease Hypertension Mother Alzheimer disease Hypertension Other Diabetes mellitus Social History Social History Social History: The patient is a lifelong nonsmoker. The patient does not use any alcohol marijuana or illicit drugs. 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 He is . He has 1 son who is the durable power metal buffer for healthcare. 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[employer] Gender identity (if verbalized by the patient): Male Sexual Orientation (if Verbalized by the Patient): Straight or Heterosexual Spiritual care concerns: No Agree to blood products: Yes Meds Home Medications and Allergies Home Medications ?Medication ?Instructions ?Recorded ?Confirmed ?Type brimonidine 0.2 % eye drops 1 drp ophthalmic (eye) DAILY 07/11/19 08/17/24 History B-complex with vitamin C 1 tablet PO DAILY 04/01/21 08/16/24 History ascorbic acid (vitamin C) 500 mg 500 mg PO DAILY 04/01/21 08/16/24 History tablet latanoprost 0.005 % eye drops 1 drp EACH EYE HS 04/01/21 08/17/24 History pseudoephedrine HCl 120 mg 120 mg PO Q12H PRN Congestion 04/01/21 08/17/24 History tablet,extended release ([employer] D) zinc 50 mg tablet 50 mg PO DAILY 04/01/21 08/16/24 History cyanocobalamin (vitamin B-12) 1,000 mcg PO QAM #30 tabs 04/16/21 08/16/24 Rx 1,000 mcg tablet (Vitamin B-12) aspirin 81 mg tablet,delayed 81 mg PO DAILY 05/21/22 08/16/24 History release magnesium 200 mg tablet 200 mg PO DAILY 05/21/22 08/16/24 History acetaminophen 500 mg capsule 1,000 mg PO Q6H PRN Pain (Scale 04/07/23 08/16/24 History Score 1-3) timolol maleate 0.5 % eye drops 1 drp EACH EYE DAILY 05/19/23 08/17/24 History triamcinolone acetonide 0.1 % 1 applic topical BID #454 grams 10/15/23 08/16/24 Rx topical cream atorvastatin 20 mg tablet 20 mg PO DAILY #90 tabs 10/19/23 08/17/24 Rx abaloparatide (Tymlos) 80 mcg (0.04 mL) subcut DAILY 01/06/24 08/16/24 Rx #1.56 mL doxazosin 2 mg tablet 2 mg PO DAILY #90 tabs 02/01/24 08/17/24 Rx furosemide 20 mg tablet 20 mg PO BID #60 tabs 02/01/24 08/17/24 Rx metformin 500 mg tablet,extended 1,000 mg (2 x 500 mg) PO DAILY 03/28/24 08/17/24 Rx release 24 hr #180 tabs gabapentin 600 mg tablet 1,200 mg (2 x 600 mg) PO TID #360 05/30/24 08/17/24 Rx tabs calcitriol 0.25 mcg capsule See Rx Instructions .Route 06/14/24 08/17/24 Rx .COMPLEX #12 caps amlodipine 5 mg tablet (Norvasc) 10 mg (2 x 5 mg) PO QAM #60 tabs 08/05/24 08/17/24 Rx prednisone 20 mg tablet 20 mg PO .COMPLEX #18 tabs 08/16/24 08/16/24 Rx tamsulosin 0.4 mg capsule 0.8 mg PO DAILY 08/16/24 08/17/24 History trazodone 50 mg tablet See Rx Instructions PO QHS PRN 08/16/24 08/17/24 Rx insomnia #90 tabs polyethylene glycol 3350 17 gram 17 g PO QAM PRN constipation 08/17/24 08/17/24 History oral powder packet (Miralax) Allergies Allergy/AdvReac Type Severity Reaction Status Date / Time Antihistamines - Alkylamine AdvReac Intermediate Hallucinati Verified 08/17/24 17:34 ng Vital Signs Vital Signs - 24 hr 08/17/24 11:39 08/17/24 14:08 Temperature 99.1 F Pulse Rate 93 88 Respiratory Rate 20 19 Blood Pressure 146/77 H 133/77 Pulse Oximetry 97 99 Oxygen Delivery Room Air Exam Const: General: comfortable and no acute distress Other: , male, elderly, chronically ill-appearing HENMT: Face/Nose/Sinus: Normal nares present Mouth: Yes moist mucous membranes Eyes: General: appearance normal, both eyes and all related structures Sclera: sclerae normal Pupils: Equal, round and reactive pupils present EOM: EOMs intact bilaterally Resp: Effort & Inspection: normal respiratory effort Auscultation: clear to auscultation bilaterally Cardio: Rate: regular rate Rhythm: regular rhythm Other: S1-S2 present without murmur, rub, ectopy GI: Other: Abdomen soft, nondistended, nontender. Normoactive bowel sounds in all quadrants. Skin: General skin exam: normal color and no rashes or lesions noted Wounds: no wounds Neuro: Speech: normal speech Other: A/Ox self, place, and poor situational recall. Could not recall year. Generalized weakness. +4 in all extremities. Decreased sensation in the left upper extremity. Normal sensation in all other extremities. Extrem: General: normal to inspection Psych: Mental Status: mental status grossly normal Affect: normal affect Other: Fair to poor insight and judgment. H&P: Results Labs Labs: Short CBC 08/17/24 Range/Units 12:03 WBC 12.8 H (4.5-10.0) K/mm3 Hgb 12.1 L (14.0-18.0) g/dL Hct 36.7 L (42.0-52.0) % Plt Count 143 L (150-375) k/mm3 BMP 08/17/24 12:02 Sodium 137 Potassium 3.8 Chloride 104 Carbon Dioxide 21 L BUN 29 H Creatinine 1.90 H Glucose 211 H Calcium 9.0 Cardiac Enzymes 08/17/24 Range/Units 12:02 Total Creatine Kinase 734 H (55-170) U/L Troponin I < 0.012 (0.000-0.034) ng/mL Liver Function 08/17/24 Range/Units 12:02 Total Bilirubin 1.0 (0.2-1.3) mg/dL AST 39 (17-59) U/L ALT 21 (6-50) U/L Alkaline Phosphatase 58 (38-126) U/L Albumin 4.0 (3.5-5.1) g/dL Urine 08/17/24 Range/Units 12:03 Urine Color Yellow (Yellow) Urine Appearance Turbid H (Clear) Urine pH 6.0 (5.0-9.0) Ur Specific [place] 1.013 (1.001-1.035) Urine Protein 3+ H (Negative) mg/dL Urine Glucose (UA) Negative (Negative) mg/dL Assessment and Plan Assessment and plan (1) UTI (urinary tract infection): Qualifiers: Hematuria presence: without hematuria Urinary tract infection type: acute cystitis Qualified Code(s): N30.00 - Acute cystitis without hematuria Code(s): N39.0 - Urinary tract infection, site not specified Status: Acute Assessment and Plan: - UA: Turbid, 3+ protein, 1+ ketones, 3+ blood, positive nitrates, 3+ leuks, 11-20 RBC, greater than 100 WBC, WBC clumps present, few epithelial cells, 4+ bacteria. Could be contamination, however given nitrates and 4+ bacteria with only few epithelial cells in favor of infection. 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 - started on Ceftriaxone and vancomycin on 08/17 - 400 mL retained post-void, chowdhury to be placed and continue Flomax. Has hx of same, likely exacerbated by current UTI. (2) Confusion: Code(s): R41.0 - Disorientation, unspecified Status: Acute Assessment and Plan: - head CT: No acute intracranial findings - reviewed previous office visit notes and d/c summary from May of 2023 - intermittent confusion appears to be a frequent complaint/noted finding. may be exacerbated by acute UTI. - ammonia negative, UDS negative, viral PCR negative, ethanol negative - neuro checks q.6 - did not meet SIRS criteria, however blood cultures obtained in ED on 08/17, follow - history of alcoholism -> check B12, folate, thiamine. ETOH negative. (3) Left-sided muscle weakness: Code(s): M62.81 - Muscle weakness (generalized) Status: Acute Assessment and Plan: - undergoing outpatient work up, chronic for some time. - likely contributing to falls - PT/OT eval for placement vs acute rehab - care coordination for d/c planning (4) Frequent falls: Code(s): R29.6 - Repeated falls Status: Acute Assessment and Plan: - head CT, C-spine CT, and CXR negative for acute findings post falls - increased number of falls over the past week, requiring 3 lift assist at home where patient refused transport - chronic left-sided weakness in the left lower extremity and numbness in the left upper extremity, currently undergoing workup through neuro surgery - PT/OT/care coordination consulted - fall precaution - may be exacerbated by acute UTI (5) Type 2 diabetes mellitus with chronic kidney disease: Qualifiers: Chronic kidney disease stage: stage 3 (moderate) Chronic kidney disease stage 3 subtype: stage 3a (GFR 45-59) 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 mellitus 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 truck driver insulin use: without intermodal truck driver use Qualified Code(s): E11.22 - Type 2 diabetes mellitus with diabetic chronic kidney disease; N18.31 - Chronic kidney disease, stage 3a Code(s): E11.22 - Type 2 diabetes mellitus with diabetic chronic kidney disease Status: Chronic Assessment and Plan: - hypoglycemia protocol - POC blood glucose ACHS - home medication: Hold metformin in case of need for contrast - correct regimen ordered - low/high dose TIDWM - A1C 7.2% on 08/16/2024 (6) CKD (chronic kidney disease): Qualifiers: Chronic kidney disease stage: stage 3 (moderate) Chronic kidney disease stage 3 subtype: stage 3b (GFR 30-44) Qualified Code(s): N18.32 - Chronic kidney disease, stage 3b Code(s): N18.9 - Chronic kidney disease, unspecified Status: Chronic Assessment and Plan: - creatinine 1.9, GFR 35. Previously 1.89 and GFR 35 on 04/18/2024. - trend renal function - trend electrolytes, correct as needed (7) Benign hypertension with CKD (chronic kidney disease) stage III: Code(s): I12.9 - Hypertensive chronic kidney disease with stage 1 through stage 4 chronic kidney disease, or unspecified chronic kidney disease; N18.30 - Chronic kidney disease, stage 3 unspecified Status: Chronic Assessment and Plan: - chronic, currently 133/77 - continue home medications: Amlodipine - monitor Plan Diet: Diabetic GI Prophylaxis: Not currently indicated DVT Prophylaxis: SCDs IV fluids: 2 L bolus Lines/Tubes: Peripheral IV Code Status: Full code Quality VTE Prophylaxis VTE prophylaxis: mechanical ordered Hospitalist MIPS Advance Care Plan I have confirmed that the patient's Advanced Care Plan is present, code status is documented, or surrogate decision maker is listed in patient medical record.: Yes Medication Reconciliation I have utilized all available resources to obtain, update and review the patients current medications (includes all prescriptions, OTC, herbals, cannabis, and nutritional supplements).: Yes
--- NOTE | 2024-08-17 16:42 | ADMGEN ---
This patient, Santi Torrez, was admitted to Medical Room 244-. Patient/family oriented to hospital policies and general routines including ID bracelet, bed and alarms, visiting hours, pain management, procedures, bathroom and other care routines, personal items, smoking policy, room service/diet, and visiting hours. Information on how to activate the Rapid Response Team has been discussed. Patient/Family are encouraged to report perceived risks to care and to ask questions if they do not understand what they are told or what they should do.
[2024-08-17 17:15] VITALS: BMI 26.3
[2024-08-17 17:20] VITALS: BP 144/71; PULSE 97; RESP 18; TEMP 37.3; O2SAT 95
[2024-08-17] MEDS: LIDOCAINE 2% GEL UROJET 10 ML PKG MUCOUS MEM (20:30)
[2024-08-17 21:41] VITALS: BP 127/71; PULSE 81; RESP 20; TEMP 36.3; O2SAT 99
[2024-08-18] MEDS: GABAPENTIN 400 MG CAPSULE 1200 MG PO ×4 (00:10→20:52)
[2024-08-18] MEDS: LATANOPROST 0.005% OP SOLN 2.5 ML BTL 1 DROP EACH EYE ×2 (00:12→20:52)
[2024-08-18 05:44] LABS: Basophils Percent Auto 0.4 % (0.2-1.2); Eosinophils Absolute Auto 0.1 K/mm3 (0-0.3); Eosinophils Percent Auto 0.5 % (0-4.4); Hematocrit 34.4 % (42.0-52.0); Hemoglobin 11.1 g/dL (14.0-18.0); Immature Granulocyte Absolute 0.05 K/mm3 (0.00-0.031); Immature Granulocyte Percent A 0.5 % (0-0.5); Lymphocytes Percent Auto 13.7 % (18.3-44.2); Mean Corpuscular HGB Conc 32.3 g/dl (32-36); Mean Corpuscular Hemoglobin 28.8 pg (26-34); Mean Corpuscular Volume 89.4 fl (80-100); Mean Platelet Volume 10.7 fl (7.4-10.4); Monocytes Absolute Auto 1.6 K/mm3 (0.1-0.6); Monocytes Percent Auto 14.4 % (2.6-8.5); Neutrophils Absolute Auto 7.7 K/mm3 (1.3-6.7); Neutrophils Percent Auto 70.5 % (45.5-73.1); Platelet Count Result 142 k/mm3 (150-375); Red Blood Count 3.85 M/mm3 (4.6-6.20); Red Cell Distribution Width 14.6 % (11.5-14.5); White Blood Count 10.9 K/mm3 (4.5-10.0)
[2024-08-18 06:00] VITALS: BP 110/61; PULSE 61; RESP 20; TEMP 36.2; O2SAT 98
[2024-08-18 06:11] LABS: Anion Gap 9 mmol/L (4-12); Blood Urea Nitrogen 26 mg/dL (9-20); Calcium 8.3 mg/dL (8.4-10.2); Carbon Dioxide 23 mmol/L (22-30); Chloride 110 mmol/L (98-107); Estimated CRCL calculation 39 ml/min; Estimated Glomerular Filt Rate 42; Glucose 130 mg/dL (65-110); Potassium 4.1 mmol/L (3.4-5.0); Sodium 142 mmol/L (137-145)
[2024-08-18 07:03] LABS: Folic Acid > 20.0 ng/mL (2.76->20)
[2024-08-18] MEDS: amLODIPine BESYLATE 10 MG TABLET PO (10:08)
[2024-08-18] MEDS: FUROSEMIDE 20 MG TABLET PO ×2 (10:08→16:50)
[2024-08-18] MEDS: TIMOLOL MALEATE 0.5% OP SOLN 5 ML BOTTLE 1 DROP EACH EYE (10:08)
[2024-08-18] MEDS: BRIMONIDINE TARTRATE 0.2% OP SOLN 5 ML BTL 1 DROP EACH EYE (10:08)
[2024-08-18] MEDS: ATORVASTATIN 20 MG TABLET PO (10:08)
[2024-08-18 10:13] VITALS: O2SAT 99
--- NOTE | 2024-08-18 10:13 | PM.IMHP ---
H&P: HPI History of Present Illness Date/Time: 08/18/24 10:13 Chief Complaint: Falls PMFSH Past Medical History Medical History BMI 28.0-28.9,adult Urinary retention Decreased psychiatric tech strength of right hand Numbness and tingling in both hands Decreased psychiatric tech strength of left hand Numbness and tingling in left hand Left hand pain Arthritis UTI (urinary tract infection), bacterial CHF (congestive heart failure) Atrial fib/flutter, transient Wears glasses Pulmonary embolism Stage 3b chronic kidney disease (CKD) Femur fracture, right (04/11/21) History of alcohol abuse Hypokalemia (Unknown) Knee effusion, right Hyperlipidemia (Unknown) Closed fracture of right hip (04/11/21) Osteoporosis BPH with obstruction/lower urinary tract symptoms (Unknown) Chronic pain Low back pain, unspecified Mild persistent asthma, uncomplicated Polyneuropathy, unspecified Primary open-angle glaucoma, bilateral, moderate stage GERD (gastroesophageal reflux disease) (Unknown) Diabetes mellitus Surgical History Surgical History History of hip surgery (04/2023) ORIF left IT hip fx History of hip surgery Right Gamma Khoi 2021- Dr. Marquez History of penile implant History of knee surgery Previous back surgery Family History Family History Father CAD (coronary artery disease) Alzheimer disease Acute myocardial infarction Heart disease Hypertension Mother Alzheimer disease Hypertension Other Diabetes mellitus Social History Social History Social History: The patient is a lifelong nonsmoker. The patient does not use any alcohol marijuana or illicit drugs. 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 He is . He has 1 son who is the durable power clock and watch hands dipper for healthcare. 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[employer] Gender identity (if verbalized by the patient): Male Sexual Orientation (if Verbalized by the Patient): Straight or Heterosexual Spiritual care concerns: No Agree to blood products: Yes Meds Home Medications and Allergies Home Medications ?Medication ?Instructions ?Recorded ?Confirmed ?Type brimonidine 0.2 % eye drops 1 drp ophthalmic (eye) DAILY 07/11/19 08/17/24 History B-complex with vitamin C 1 tablet PO DAILY 04/01/21 08/16/24 History ascorbic acid (vitamin C) 500 mg 500 mg PO DAILY 04/01/21 08/16/24 History tablet latanoprost 0.005 % eye drops 1 drp EACH EYE HS 04/01/21 08/17/24 History pseudoephedrine HCl 120 mg 120 mg PO Q12H PRN Congestion 04/01/21 08/17/24 History tablet,extended release ([employer] D) zinc 50 mg tablet 50 mg PO DAILY 04/01/21 08/16/24 History cyanocobalamin (vitamin B-12) 1,000 mcg PO QAM #30 tabs 04/16/21 08/16/24 Rx 1,000 mcg tablet (Vitamin B-12) aspirin 81 mg tablet,delayed 81 mg PO DAILY 05/21/22 08/16/24 History release magnesium 200 mg tablet 200 mg PO DAILY 05/21/22 08/16/24 History acetaminophen 500 mg capsule 1,000 mg PO Q6H PRN Pain (Scale 04/07/23 08/16/24 History Score 1-3) timolol maleate 0.5 % eye drops 1 drp EACH EYE DAILY 05/19/23 08/17/24 History triamcinolone acetonide 0.1 % 1 applic topical BID #454 grams 10/15/23 08/16/24 Rx topical cream atorvastatin 20 mg tablet 20 mg PO DAILY #90 tabs 10/19/23 08/17/24 Rx abaloparatide (Tymlos) 80 mcg (0.04 mL) subcut DAILY 01/06/24 08/16/24 Rx #1.56 mL doxazosin 2 mg tablet 2 mg PO DAILY #90 tabs 02/01/24 08/17/24 Rx furosemide 20 mg tablet 20 mg PO BID #60 tabs 02/01/24 08/17/24 Rx metformin 500 mg tablet,extended 1,000 mg (2 x 500 mg) PO DAILY 03/28/24 08/17/24 Rx release 24 hr #180 tabs gabapentin 600 mg tablet 1,200 mg (2 x 600 mg) PO TID #360 05/30/24 08/17/24 Rx tabs calcitriol 0.25 mcg capsule See Rx Instructions .Route 06/14/24 08/17/24 Rx .COMPLEX #12 caps amlodipine 5 mg tablet (Norvasc) 10 mg (2 x 5 mg) PO QAM #60 tabs 08/05/24 08/17/24 Rx prednisone 20 mg tablet 20 mg PO .COMPLEX #18 tabs 08/16/24 08/16/24 Rx tamsulosin 0.4 mg capsule 0.8 mg PO DAILY 08/16/24 08/17/24 History trazodone 50 mg tablet See Rx Instructions PO QHS PRN 08/16/24 08/17/24 Rx insomnia #90 tabs polyethylene glycol 3350 17 gram 17 g PO QAM PRN constipation 08/17/24 08/17/24 History oral powder packet (Miralax) Allergies Allergy/AdvReac Type Severity Reaction Status Date / Time Antihistamines - Alkylamine AdvReac Intermediate Hallucinati Verified 08/17/24 17:34 ng Vital Signs Vital Signs - 24 hr 08/17/24 11:39 08/17/24 14:08 08/17/24 17:20 Temperature 99.1 F 99.1 F Pulse Rate 93 88 97 Respiratory Rate 20 19 18 Blood Pressure 146/77 H 133/77 144/71 H Pulse Oximetry 97 99 95 Oxygen Delivery Room Air 08/17/24 18:01 08/17/24 20:30 08/17/24 21:41 Temperature 97.4 F L Pulse Rate 81 Respiratory Rate 20 Blood Pressure 127/71 Pulse Oximetry 99 Oxygen Delivery Room Air Room Air 08/18/24 06:00 Temperature 97.2 F L Pulse Rate 61 Respiratory Rate 20 Blood Pressure 110/61 Pulse Oximetry 98 Oxygen Delivery H&P: Results Labs Labs: Short CBC 08/17/24 08/18/24 Range/Units 12:03 05:05 WBC 12.8 H 10.9 H (4.5-10.0) K/mm3 Hgb 12.1 L 11.1 L (14.0-18.0) g/dL Hct 36.7 L 34.4 L (42.0-52.0) % Plt Count 143 L 142 L (150-375) k/mm3 BMP 08/17/24 08/18/24 12:02 05:05 Sodium 137 142 Potassium 3.8 4.1 Chloride 104 110 H Carbon Dioxide 21 L 23 BUN 29 H 26 H Creatinine 1.90 H 1.62 H Glucose 211 H 130 H Calcium 9.0 8.3 L Cardiac Enzymes 08/17/24 Range/Units 12:02 Total Creatine Kinase 734 H (55-170) U/L Troponin I < 0.012 (0.000-0.034) ng/mL Liver Function 08/17/24 Range/Units 12:02 Total Bilirubin 1.0 (0.2-1.3) mg/dL AST 39 (17-59) U/L ALT 21 (6-50) U/L Alkaline Phosphatase 58 (38-126) U/L Albumin 4.0 (3.5-5.1) g/dL Urine 08/17/24 Range/Units 12:03 Urine Color Yellow (Yellow) Urine Appearance Turbid H (Clear) Urine pH 6.0 (5.0-9.0) Ur Specific [place] 1.013 (1.001-1.035) Urine Protein 3+ H (Negative) mg/dL Urine Glucose (UA) Negative (Negative) mg/dL
--- NOTE | 2024-08-18 10:14 | PM.IMPN ---
Progress Note: A&P Assessment and Plan (1) UTI (urinary tract infection): Qualifiers: Hematuria presence: without hematuria Urinary tract infection type: acute cystitis Qualified Code(s): N30.00 - Acute cystitis without hematuria Code(s): N39.0 - Urinary tract infection, site not specified Status: Acute Assessment and Plan: - UA: Turbid, 3+ protein, 1+ ketones, 3+ blood, positive nitrates, 3+ leuks, 11-20 RBC, greater than 100 WBC, WBC clumps present, few epithelial cells, 4+ bacteria. Could be contamination, however given nitrates and 4+ bacteria with only few epithelial cells in favor of infection. 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 - started on Ceftriaxone and vancomycin on 08/17 - 400 mL retained post-void, chowdhury to be placed and continue Flomax. Has hx of same, likely exacerbated by current UTI. (2) Confusion: Code(s): R41.0 - Disorientation, unspecified Status: Acute Assessment and Plan: - head CT: No acute intracranial findings - reviewed previous office visit notes and d/c summary from May of 2023 - intermittent confusion appears to be a frequent complaint/noted finding. may be exacerbated by acute UTI. - ammonia negative, UDS negative, viral PCR negative, ethanol negative - neuro checks q.6 - did not meet SIRS criteria, however blood cultures obtained in ED on 08/17, follow - history of alcoholism -> check B12, folate, thiamine. ETOH negative. (3) Left-sided muscle weakness: Code(s): M62.81 - Muscle weakness (generalized) Status: Acute Assessment and Plan: - undergoing outpatient work up, chronic for some time. - likely contributing to falls - PT/OT eval for placement vs acute rehab - care coordination for d/c planning (4) Frequent falls: Code(s): R29.6 - Repeated falls Status: Acute Assessment and Plan: - head CT, C-spine CT, and CXR negative for acute findings post falls - increased number of falls over the past week, requiring 3 lift assist at home where patient refused transport - chronic left-sided weakness in the left lower extremity and numbness in the left upper extremity, currently undergoing workup through neuro surgery - PT/OT/care coordination consulted - fall precaution - may be exacerbated by acute UTI (5) Type 2 diabetes mellitus with chronic kidney disease: Qualifiers: Chronic kidney disease stage: stage 3 (moderate) Chronic kidney disease stage 3 subtype: stage 3a (GFR 45-59) Diabetes mellitus custodial insulin use: without custodial use Qualified Code(s): E11.22 - Type 2 diabetes mellitus with diabetic chronic kidney disease; N18.31 - Chronic kidney disease, stage 3a Code(s): E11.22 - Type 2 diabetes mellitus with diabetic chronic kidney disease Status: Chronic Assessment and Plan: - hypoglycemia protocol - POC blood glucose ACHS - home medication: Hold metformin in case of need for contrast - correct regimen ordered - low/high dose TIDWM - A1C 7.2% on 08/16/2024 (6) CKD (chronic kidney disease): Qualifiers: Chronic kidney disease stage: stage 3 (moderate) Chronic kidney disease stage 3 subtype: stage 3b (GFR 30-44) Qualified Code(s): N18.32 - Chronic kidney disease, stage 3b Code(s): N18.9 - Chronic kidney disease, unspecified Status: Chronic Assessment and Plan: - creatinine 1.9>1.6, GFR 39. Previously 1.89 and GFR 35 on 04/18/2024. - trend renal function - trend electrolytes, correct as needed (7) Benign hypertension with CKD (chronic kidney disease) stage III: Code(s): I12.9 - Hypertensive chronic kidney disease with stage 1 through stage 4 chronic kidney disease, or unspecified chronic kidney disease; N18.30 - Chronic kidney disease, stage 3 unspecified Status: Chronic Assessment and Plan: - chronic, currently 133/77 - continue home medications: Amlodipine - monitor (8) Sepsis: Code(s): A41.9 - Sepsis, unspecified organism Status: Resolved Assessment and Plan: Blood cultures positive, growing GNB. Stopped Vanc and started empiric Cefepime Plan Diet: Diabetic GI Prophylaxis: Not currently indicated DVT Prophylaxis: SCDs IV fluids: 2 L bolus Lines/Tubes: Peripheral IV Code Status: Full code Time Spent With Patient Time: 45 minutes Subjective Date/time seen: 08/18/24 10:14 Interval history: Afebrile. VSS. 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 Stopping Vanc and start empiric Cefepime Review of Systems Review of Systems: All systems reviewed & are unremarkable except as noted in HPI and below Exam Narrative: General - Awake and alert. No acute distress Eyes - PERRLA, EOM intact ENT - No thrush, No erythema Neck - No noticeable or palpable swelling Lymph Nodes - No lymphadenopathy Cardiovascular - RRR no m/r/g, no JVD Lungs: Clear to auscultation, No wheezing, use of accessory muscles, no crackles Skin - Skin warm and dry, no wounds or rashes Abdomen - Normal bowel sounds, abdomen soft and nontender Extremities - No edema, cyanosis or clubbing Musculoskeletal - 5/5 strength, normal range of motion, no swollen or erythematous joints. Neurological ? Alert and oriented x2-3, forgetful, CN 2-12 grossly intact. Psych: Normal mood and affect Objective Data Vital Signs Vital Signs: Vital Signs - 24 hr 08/17/24 11:39 08/17/24 14:08 08/17/24 17:20 Temperature 99.1 F 99.1 F Pulse Rate 93 88 97 Respiratory Rate 20 19 18 Blood Pressure 146/77 H 133/77 144/71 H Pulse Oximetry 97 99 95 Oxygen Delivery Room Air 08/17/24 18:01 08/17/24 20:30 08/17/24 21:41 Temperature 97.4 F L Pulse Rate 81 Respiratory Rate 20 Blood Pressure 127/71 Pulse Oximetry 99 Oxygen Delivery Room Air Room Air 08/18/24 06:00 Temperature 97.2 F L Pulse Rate 61 Respiratory Rate 20 Blood Pressure 110/61 Pulse Oximetry 98 Oxygen Delivery Intake/Output Intake/Output: Intake & Output 08/15/24 08/16/24 08/17/24 08/18/24 23:59 23:59 23:59 23:59 Intake Total 2550 420 Output Total 900 1400 Balance 1650 -980 Meds/Results Medications: Active Medications Generic Name Dose Route Start Last Admin Trade Name Freq PRN Reason Stop Dose Admin Acetaminophen 650 mg 08/17/24 15:40 Acetaminophen 325 Mg Tablet PO Q4H PRN Mild Pain (1-3) or Fever Amlodipine Besylate 10 mg 08/18/24 09:00 08/18/24 10:08 Amlodipine Besylate 10 Mg Tablet PO 10 mg QAM [facility] Administration Atorvastatin Calcium 20 mg 08/18/24 09:00 08/18/24 10:08 Atorvastatin 20 Mg Tablet PO 20 mg DAILY [facility] Administration Brimonidine Tartrate 1 drop 08/18/24 09:00 08/18/24 10:08 Brimonidine Tartrate 0.2% Op Soln 5 Ml Btl EACH EYE 1 drop DAILY [facility] Administration Calcitriol 0.25 mcg 08/19/24 09:00 Calcitriol 0.25 Mcg Capsule PO [id number] [facility] Doxazosin Mesylate 2 mg 08/18/24 09:00 Doxazosin Mesylate 2 Mg Tablet PO DAILY [facility] Furosemide 20 mg 08/18/24 09:00 08/18/24 10:08 Furosemide 20 Mg Tablet PO 20 mg BID [facility] Administration Gabapentin 1,200 mg 08/17/24 22:15 08/18/24 06:08 Gabapentin 400 Mg Capsule PO 1,200 mg Q8HR [facility] Administration Vancomycin HCl 1,500 mg in 500 mls @ 250 mls/hr 08/17/24 15:00 08/17/24 17:47 Vancomycin 1,500 Mg/Ns 500 Ml IVPB Infused Q36H [facility] Infusion Latanoprost 1 drop 08/17/24 22:15 08/18/24 00:12 Latanoprost 0.005% Op Soln 2.5 Ml Btl EACH EYE 1 drop HS [facility] Administration Miscellaneous Information 1 each 08/18/24 00:01 08/18/24 07:50 Clarify Trazodone--Unable To Do A Ranged Dose Unless Each Dose Has Prn Parameters. Ok To D XX 09/17/24 00:00 Not Given [facility] Miscellaneous Information 1 each 08/18/24 00:01 08/18/24 07:50 Malika Is Duplicate Therapy--According To External Med History Flomax Was Last XX 09/17/24 00:00 Not Given [facility] Ondansetron HCl 4 mg 08/17/24 15:40 Ondansetron Inj 4 Mg/2 Ml Vial IV PUSH Q4H PRN Nausea Polyethylene Glycol 17 gm 08/17/24 22:05 Polyethylene Glycol 3350 17 Gm Powd.Pack PO QAM PRN constipation Tamsulosin HCl 0.8 mg 08/18/24 09:00 Tamsulosin Hcl 0.4 Mg Capsule PO DAILY [facility] Timolol Maleate 1 drop 08/18/24 09:00 08/18/24 10:08 Timolol Maleate 0.5% Op Soln 5 Ml Bottle EACH EYE 1 drop DAILY [facility] Administration Trazodone HCl 0 mg 08/17/24 22:05 Trazodone Hcl 50 Mg Tablet PO QHS PRN insomnia Radiology Results: ITS Impressions Chest X-Ray 08/17/24 12:33 IMPRESSION: No acute cardiopulmonary pathology. Head CT 08/17/24 12:42 IMPRESSION: No acute intracranial findings. Cervical Spine CT 08/17/24 13:02 IMPRESSION: No evidence for cervical spine fracture or traumatic subluxation. Multilevel degenerative changes of the cervical spine. Labs Labs: Laboratory Results - last 24 hr 08/17/24 08/17/24 08/17/24 12:02 12:03 12:30 WBC 12.8 H RBC 4.20 L Hgb 12.1 L Hct 36.7 L MCV 87.4 MCH 28.8 MCHC 33.0 RDW 14.3 Plt Count 143 L MPV 10.1 Immature Gran % (Auto) 0.6 H Neut % (Auto) 81.7 H Lymph % (Auto) 6.2 L Beadle % (Auto) 11.1 H Eos % (Auto) 0.0 Baso % (Auto) 0.4 Lymph # (Auto) 0.79 L Beadle # (Auto) 1.4 H Eos # (Auto) 0.0 Baso # (Auto) 0.1 Abs Immat Gran (auto) 0.08 H Absolute Neuts (auto) 10.5 H Absolute Nucleated RBC 0.000 Nucleated RBC % 0.0 Absolute Retic 0.09 Percent Retic 2.18 Immature Retic Fraction 20.3 H Retic Hgb Content 27.5 L PT 14.7 INR 1.2 APTT 26.4 Fibrinogen 494 Sodium 137 Potassium 3.8 Chloride 104 Carbon Dioxide 21 L Anion Gap 12 BUN 29 H Creatinine 1.90 H Estim Creat Clear Calc 33 Estimated GFR 35 L Glucose 211 H Lactic Acid Calcium 9.0 Total Bilirubin 1.0 AST 39 ALT 21 Alkaline Phosphatase 58 Ammonia Lactate Dehydrogenase 211 Total Creatine Kinase 734 H Troponin I < 0.012 Total Protein 7.5 Albumin 4.0 Vitamin B12 Folate TSH 1.900 Urine Color Yellow Urine Appearance Turbid H Urine pH 6.0 Ur Specific Dixon 1.013 Urine Protein 3+ H Urine Glucose (UA) Negative Urine Ketones 1+ H Ur Blood (Man) 3+ H Urine Nitrate Positive H Urine Bilirubin Negative Urine Urobilinogen 1.0 Add Ur Microanalysis Reviewed Leukocyte Esterase Rfl 3+ H Urine RBC 11-20 H Urine WBC >100 H Urine WBC Clumps Present H Ur Squamous Epith Cells Few Urine Bacteria 4+ Urine Casts 6-10 Salicylates Urine Opiates Screen Negative Urine Methadone Screen Negative Acetaminophen Ur Barbiturates Screen Negative Ur Phencyclidine Scrn Negative Ur Amphetamine Screen Negative U Benzodiazepines Scrn Negative Urine Cocaine Screen Negative U Cannabinoids Screen Negative Ethyl Alcohol Influenza A (RT-PCR) Negative Influenza B (RT-PCR) Negative RSV (RT-PCR) Negative SARS-CoV-2 RNA (RT-PCR) Negative 08/17/24 08/18/24 12:45 05:05 WBC 10.9 H RBC 3.85 L Hgb 11.1 L Hct 34.4 L MCV 89.4 MCH 28.8 MCHC 32.3 RDW 14.6 H Plt Count 142 L MPV 10.7 H Immature Gran % (Auto) 0.5 Neut % (Auto) 70.5 Lymph % (Auto) 13.7 L Beadle % (Auto) 14.4 H Eos % (Auto) 0.5 Baso % (Auto) 0.4 Lymph # (Auto) 1.50 Beadle # (Auto) 1.6 H Eos # (Auto) 0.1 Baso # (Auto) 0.0 Abs Immat Gran (auto) 0.05 H Absolute Neuts (auto) 7.7 H Absolute Nucleated RBC 0.000 Nucleated RBC % 0.0 Absolute Retic Percent Retic Immature Retic Fraction Retic Hgb Content PT INR APTT Fibrinogen Sodium 142 Potassium 4.1 Chloride 110 H Carbon Dioxide 23 Anion Gap 9 BUN 26 H Creatinine 1.62 H Estim Creat Clear Calc 39 Estimated GFR 42 L Glucose 130 H Lactic Acid 1.1 Calcium 8.3 L Total Bilirubin AST ALT Alkaline Phosphatase Ammonia < 9 L Lactate Dehydrogenase Total Creatine Kinase Troponin I Total Protein Albumin Vitamin B12 218.0 L Folate > 20.0 H TSH Urine Color Urine Appearance Urine pH Ur Specific Dixon Urine Protein Urine Glucose (UA) Urine Ketones Ur Blood (Man) Urine Nitrate Urine Bilirubin Urine Urobilinogen Add Ur Microanalysis Leukocyte Esterase Rfl Urine RBC Urine WBC Urine WBC Clumps Ur Squamous Epith Cells Urine Bacteria Urine Casts Salicylates < 1.0 L Urine Opiates Screen Urine Methadone Screen Acetaminophen < 10 L Ur Barbiturates Screen Ur Phencyclidine Scrn Ur Amphetamine Screen U Benzodiazepines Scrn Urine Cocaine Screen U Cannabinoids Screen Ethyl Alcohol < 10 Influenza A (RT-PCR) Influenza B (RT-PCR) RSV (RT-PCR) SARS-CoV-2 RNA (RT-PCR) Quality VTE Prophylaxis VTE prophylaxis: mechanical ordered Hospitalist MIPS Advance Care Plan I have confirmed that the patient's Advanced Care Plan is present, code status is documented, or surrogate decision maker is listed in patient medical record.: Yes Medication Reconciliation I have utilized all available resources to obtain, update and review the patients current medications (includes all prescriptions, OTC, herbals, cannabis, and nutritional supplements).: Yes
[2024-08-18] MEDS: CEFEPIME 2 GM/NS 50 ML 2 GM/50 ML BAG IVPB ×2 (11:45→20:50)
[2024-08-18] MEDS: polyethylene glycoL 3350 17 GM POWD.PACK PO (13:20)
[2024-08-18 14:00] VITALS: BP 116/60; PULSE 65; RESP 18; TEMP 36.4; O2SAT 99
[2024-08-18 20:53] VITALS: BP 135/71; PULSE 63; RESP 18; TEMP 36.5; O2SAT 100
[2024-08-19] MEDS: GABAPENTIN 400 MG CAPSULE 1200 MG PO ×3 (05:53→22:26)
[2024-08-19 06:00] VITALS: BP 139/69; PULSE 66; RESP 18; TEMP 37.1; O2SAT 98
--- NOTE | 2024-08-19 08:11 | PM.IMPN ---
Progress Note: A&P Assessment and Plan (1) Sepsis: Code(s): A41.9 - Sepsis, unspecified organism Status: Resolved Assessment and Plan: VSS 08/17 Blood cultures positive, growing GNB. Stopped Vanc/Cefe and started empiric Cefepime Urine culture 08/17 growing ecoli--sensitivities pending (2) UTI (urinary tract infection): Qualifiers: Hematuria presence: without hematuria Urinary tract infection type: acute cystitis Qualified Code(s): N30.00 - Acute cystitis without hematuria Code(s): N39.0 - Urinary tract infection, site not specified Status: Acute Assessment and Plan: - UA: Turbid, 3+ protein, 1+ ketones, 3+ blood, positive nitrates, 3+ leuks, 11-20 RBC, greater than 100 WBC, WBC clumps present, few epithelial cells, 4+ bacteria. Could be contamination, however given nitrates and 4+ bacteria with only few epithelial cells in favor of infection. 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 - started on Ceftriaxone and vancomycin on 08/17. Now on Cefepime pending cultures given bacteremia - 400 mL retained post-void, chowdhury to be placed and continue Flomax. Has hx of same, likely exacerbated by current UTI. -Void trial today. DC Chowdhury (3) Confusion: Code(s): R41.0 - Disorientation, unspecified Status: Acute Assessment and Plan: Head CT: No acute intracranial findings - reviewed previous office visit notes and d/c summary from May of 2023 - intermittent confusion appears to be a frequent complaint/noted finding. may be exacerbated by acute UTI. - ammonia negative, UDS negative, viral PCR negative, ethanol negative - neuro checks q.6 - did not meet SIRS criteria, however blood cultures obtained in ED on 08/17, follow - history of alcoholism, not drinking recently-> B12 low, folace >20, thiamine pending. ETOH negative. (4) Left-sided muscle weakness: Code(s): M62.81 - Muscle weakness (generalized) Status: Acute Assessment and Plan: - undergoing outpatient work up, chronic for some time. - likely contributing to falls - PT/OT eval for placement vs acute rehab - care coordination for d/c planning (5) Frequent falls: Code(s): R29.6 - Repeated falls Status: Acute Assessment and Plan: - head CT, C-spine CT, and CXR negative for acute findings post falls - increased number of falls over the past week, requiring 3 lift assist at home where patient refused transport - chronic left-sided weakness in the left lower extremity and numbness in the left upper extremity, currently undergoing workup through neuro surgery - PT/OT/care coordination consulted - fall precaution - may be exacerbated by acute UTI -Thamine 500mg x3 doses (6) Type 2 diabetes mellitus with chronic kidney disease: Qualifiers: Chronic kidney disease stage: stage 3 (moderate) Chronic kidney disease stage 3 subtype: stage 3a (GFR 45-59) Diabetes mellitus intermediate insulin use: without intermediate use Qualified Code(s): E11.22 - Type 2 diabetes mellitus with diabetic chronic kidney disease; N18.31 - Chronic kidney disease, stage 3a Code(s): E11.22 - Type 2 diabetes mellitus with diabetic chronic kidney disease Status: Chronic Assessment and Plan: - hypoglycemia protocol - POC blood glucose ACHS - home medication: Hold metformin in case of need for contrast - correct regimen ordered - low/high dose TIDWM - A1C 7.2% on 08/16/2024 (7) CKD (chronic kidney disease): Qualifiers: Chronic kidney disease stage: stage 3 (moderate) Chronic kidney disease stage 3 subtype: stage 3b (GFR 30-44) Qualified Code(s): N18.32 - Chronic kidney disease, stage 3b Code(s): N18.9 - Chronic kidney disease, unspecified Status: Chronic Assessment and Plan: - creatinine 1.9>1.6, GFR 39. Previously 1.89 and GFR 35 on 04/18/2024. - trend renal function - trend electrolytes, correct as needed (8) Benign hypertension with CKD (chronic kidney disease) stage III: Code(s): I12.9 - Hypertensive chronic kidney disease with stage 1 through stage 4 chronic kidney disease, or unspecified chronic kidney disease; N18.30 - Chronic kidney disease, stage 3 unspecified Status: Chronic Assessment and Plan: - chronic, currently 133/77 - continue home medications: Amlodipine - monitor (9) Anemia: Code(s): D64.9 - Anemia, unspecified Status: Acute Assessment and Plan: Reported to take daily b12 injections, but patient reports that is not accurate Check methylmalonic acid 1 dose 1000mcg B12 today then change to PO. Discharge with sublingual --MVI Plan Diet: Diabetic GI Prophylaxis: Not currently indicated DVT Prophylaxis: SCDs IV fluids: 2 L bolus Lines/Tubes: Peripheral IV Code Status: Full code Time Spent With Patient Time: 45 minutes Subjective Date/time seen: 08/19/24 08:11 Interval history: Afebrile. VSS. Falling at home Blood cultures positive, growing GNB. Stopped Vanc and start empiric Cefepime Void trial today, discontinuing Chowdhury Review of Systems Review of Systems: All systems reviewed & are unremarkable except as noted in HPI and below Exam Narrative: General - Awake and alert. No acute distress Eyes - PERRLA, EOM intact ENT - No thrush, No erythema Neck - No noticeable or palpable swelling Lymph Nodes - No lymphadenopathy Cardiovascular - RRR no m/r/g, no JVD Lungs: Clear to auscultation, No wheezing, use of accessory muscles, no crackles Skin - Skin warm and dry, no wounds or rashes Abdomen - Normal bowel sounds, abdomen soft and nontender Extremities - No edema, cyanosis or clubbing Musculoskeletal - 5/5 strength, normal range of motion, no swollen or erythematous joints. Neurological ? Alert and oriented x2-3, forgetful, CN 2-12 grossly intact. Psych: Normal mood and affect Objective Data Vital Signs Vital Signs: Vital Signs - 24 hr 08/18/24 10:13 08/18/24 12:52 08/18/24 14:00 Temperature 97.6 F Pulse Rate 65 Respiratory Rate 18 Blood Pressure 116/60 Pulse Oximetry 99 99 Oxygen Delivery Room Air Room Air 08/18/24 14:25 08/18/24 20:00 08/18/24 20:53 Temperature 97.7 F Pulse Rate 63 Respiratory Rate 18 Blood Pressure 135/71 Pulse Oximetry 100 Oxygen Delivery Room Air Room Air 08/19/24 06:00 Temperature 98.7 F Pulse Rate 66 Respiratory Rate 18 Blood Pressure 139/69 Pulse Oximetry 98 Oxygen Delivery Intake/Output Intake/Output: Intake & Output 08/16/24 08/17/24 08/18/24 08/19/24 23:59 23:59 23:59 23:59 Intake Total 2550 1000 150 Output Total 900 2050 1075 Balance 8497 -6699 -433 Meds/Results Medications: Active Medications Generic Name Dose Route Start Last Admin Trade Name Freq PRN Reason Stop Dose Admin Acetaminophen 650 mg 08/17/24 15:40 Acetaminophen 325 Mg Tablet PO Q4H PRN Mild Pain (1-3) or Fever Amlodipine Besylate 10 mg 08/18/24 09:00 08/18/24 10:08 Amlodipine Besylate 10 Mg Tablet PO 10 mg QAM [facility] Administration Atorvastatin Calcium 20 mg 08/18/24 09:00 08/18/24 10:08 Atorvastatin 20 Mg Tablet PO 20 mg DAILY [facility] Administration Brimonidine Tartrate 1 drop 08/18/24 09:00 08/18/24 10:08 Brimonidine Tartrate 0.2% Op Soln 5 Ml Btl EACH EYE 1 drop DAILY [facility] Administration Calcitriol 0.25 mcg 08/19/24 09:00 Calcitriol 0.25 Mcg Capsule PO [email or web address] [facility] Cyanocobalamin 500 mcg 08/19/24 09:00 Cyanocobalamin Inj 1,000 Mcg/Ml Vial IM 08/22/24 08:59 DAILY [facility] Diphenhydramine HCl 25 mg 08/18/24 16:15 Diphenhydramine Hcl Cap 25 Mg Capsule PO Q6H PRN Itching Doxazosin Mesylate 2 mg 08/18/24 09:00 Doxazosin Mesylate 2 Mg Tablet PO DAILY [facility] Furosemide 20 mg 08/18/24 09:00 08/18/24 16:50 Furosemide 20 Mg Tablet PO 20 mg BID [facility] Administration Gabapentin 1,200 mg 08/17/24 22:15 08/19/24 05:53 Gabapentin 400 Mg Capsule PO 1,200 mg Q8HR [facility] Administration Cefepime HCl 2 gm in 50 mls @ 100 mls/hr 08/18/24 10:40 08/18/24 21:10 Maxipime 2 Gm/Ns 50 Ml IVPB Infused Q12HR [facility] Infusion Latanoprost 1 drop 08/17/24 22:15 08/18/24 20:52 Latanoprost 0.005% Op Soln 2.5 Ml Btl EACH EYE 1 drop HS [facility] Administration Miscellaneous Information 1 each 08/18/24 00:01 08/18/24 07:50 Clarify Trazodone--Unable To Do A Ranged Dose Unless Each Dose Has Prn Parameters. Ok To D XX 09/17/24 00:00 Not Given [facility] Miscellaneous Information 1 each 08/18/24 00:01 08/18/24 07:50 Cardura And Flomax Is Duplicate Therapy--According To External Med History Flomax Was Last XX 09/17/24 00:00 Not Given CL[facility]IFY [facility] Miscellaneous Information 0 each 08/18/24 00:01 Tymlos Is Non-Formulary. Use Pt Own Supply? XX 09/17/24 00:00 [facility]IFY [facility] Non-Formulary Medication 80 mcg 08/19/24 09:00 Abaloparatide [Tymlos] SUB-Q 09/18/24 08:59 DAILY [facility] Ondansetron HCl 4 mg 08/17/24 15:40 Ondansetron Inj 4 Mg/2 Ml Vial IV PUSH Q4H PRN Nausea Polyethylene Glycol 17 gm 08/17/24 22:05 08/18/24 13:20 Polyethylene Glycol 3350 17 Gm Powd.Pack PO 17 gm QAM PRN Administration constipation Tamsulosin HCl 0.8 mg 08/18/24 09:00 Tamsulosin Hcl 0.4 Mg Capsule PO DAILY [facility] Timolol Maleate 1 drop 08/18/24 09:00 08/18/24 10:08 Timolol Maleate 0.5% Op Soln 5 Ml Bottle EACH EYE 1 drop DAILY [facility] Administration Trazodone HCl 0 mg 08/17/24 22:05 Trazodone Hcl 50 Mg Tablet PO QHS PRN insomnia Radiology Results: ITS Impressions Chest X-Ray 08/17/24 12:33 IMPRESSION: No acute cardiopulmonary pathology. Head CT 08/17/24 12:42 IMPRESSION: No acute intracranial findings. Cervical Spine CT 08/17/24 13:02 IMPRESSION: No evidence for cervical spine fracture or traumatic subluxation. Multilevel degenerative changes of the cervical spine. Quality VTE Prophylaxis VTE prophylaxis: mechanical ordered Hospitalist MIPS Advance Care Plan I have confirmed that the patient's Advanced Care Plan is present, code status is documented, or surrogate decision maker is listed in patient medical record.: Yes Medication Reconciliation I have utilized all available resources to obtain, update and review the patients current medications (includes all prescriptions, OTC, herbals, cannabis, and nutritional supplements).: Yes
[2024-08-19 08:39] LABS: Basophils Absolute Auto 0.1 K/mm3 (0.0-0.1); Basophils Percent Auto 0.8 % (0.2-1.2); Eosinophils Absolute Auto 0.2 K/mm3 (0-0.3); Hematocrit 38.3 % (42.0-52.0); Hemoglobin 12.3 g/dL (14.0-18.0); Immature Granulocyte Absolute 0.05 K/mm3 (0.00-0.031); Immature Granulocyte Percent A 0.6 % (0-0.5); Lymphocytes Absolute Auto 1.18 K/mm3 (0.9-3.2); Lymphocytes Percent Auto 15.3 % (18.3-44.2); Mean Corpuscular HGB Conc 32.1 g/dl (32-36); Mean Corpuscular Hemoglobin 28.6 pg (26-34); Mean Corpuscular Volume 89.1 fl (80-100); Mean Platelet Volume 10.5 fl (7.4-10.4); Monocytes Absolute Auto 0.7 K/mm3 (0.1-0.6); Monocytes Percent Auto 9.3 % (2.6-8.5); Neutrophils Absolute Auto 5.5 K/mm3 (1.3-6.7); Platelet Count Result 145 k/mm3 (150-375); Red Cell Distribution Width 14.3 % (11.5-14.5); White Blood Count 7.7 K/mm3 (4.5-10.0)
[2024-08-19 08:50] LABS: Lactic Acid Reflex 0.7 mmol/L (0.7-2.0)
[2024-08-19 08:56] LABS: Alanine Aminotransferase 27 U/L (6-50); Albumin Level 3.9 g/dL (3.5-5.1); Alkaline Phosphatase 53 U/L (38-126); Anion Gap 10 mmol/L (4-12); Aspartate Amino Transferase 55 U/L (17-59); Bilirubin,Total 0.8 mg/dL (0.2-1.3); Blood Urea Nitrogen 27 mg/dL (9-20); Calcium 8.7 mg/dL (8.4-10.2); Carbon Dioxide 24 mmol/L (22-30); Chloride 108 mmol/L (98-107); Estimated CRCL calculation 36 ml/min; Estimated Glomerular Filt Rate 38; Glucose 177 mg/dL (65-110); Potassium 4.2 mmol/L (3.4-5.0); Sodium 142 mmol/L (137-145); Total Protein 7.4 g/dL (6.3-8.2)
[2024-08-19] MEDS: BRIMONIDINE TARTRATE 0.2% OP SOLN 5 ML BTL 1 DROP EACH EYE (09:20)
[2024-08-19] MEDS: ATORVASTATIN 20 MG TABLET PO (09:20)
[2024-08-19] MEDS: amLODIPine BESYLATE 10 MG TABLET PO (09:20)
[2024-08-19] MEDS: FUROSEMIDE 20 MG TABLET PO ×2 (09:20→17:53)
[2024-08-19] MEDS: calcitrioL 0.25 MCG CAPSULE PO (09:20)
[2024-08-19] MEDS: THIAMINE 500 MG/NS 100 ML 500 MG/100 ML BAG 200 MG IVPB ×3 (09:21→22:27)
[2024-08-19] MEDS: CYANOCOBALAMIN INJ 1,000 MCG/ML VIAL 1000 MCG IM (09:21)
[2024-08-19] MEDS: TIMOLOL MALEATE 0.5% OP SOLN 5 ML BOTTLE 1 DROP EACH EYE (09:22)
[2024-08-19] MEDS: CEFEPIME 2 GM/NS 50 ML 2 GM/50 ML BAG IVPB (12:14)
[2024-08-19 14:00] VITALS: BP 142/70; PULSE 62; RESP 18; TEMP 36.1; O2SAT 100
[2024-08-19] MEDS: SODIUM CHLORIDE 0.9% IV 500 ML IV CONT (15:16)
[2024-08-19 21:16] VITALS: BP 144/74; PULSE 60; RESP 18; TEMP 36.4; O2SAT 98
[2024-08-19 21:22] VITALS: O2SAT 98
[2024-08-19] MEDS: LATANOPROST 0.005% OP SOLN 2.5 ML BTL 1 DROP EACH EYE (22:27)
[2024-08-20] MEDS: CEFEPIME 2 GM/NS 50 ML 2 GM/50 ML BAG IVPB (00:52)
[2024-08-20 05:51] VITALS: BP 149/74; PULSE 57; RESP 18; TEMP 36.7; O2SAT 99
[2024-08-20 05:53] LABS: Iron 62 ug/dL (49-181)
[2024-08-20 06:02] LABS: Percent Iron Saturation 27 % (20-50)
[2024-08-20] MEDS: GABAPENTIN 400 MG CAPSULE 1200 MG PO ×2 (06:32→13:34)
--- NOTE | 2024-08-20 07:19 | P.PNIM_ITS ---
Subjective Date/time seen: 08/20/24 07:19 Interval history: Afebrile. VSS Urine culture growing ecoli. Final blood culture pending. Can likely discharge with levaquin Objective Data Vital Signs Vital Signs: Vital Signs - 24 hr 08/19/24 08:00 08/19/24 14:00 08/19/24 21:00 Temperature 97.0 F L Pulse Rate 62 Respiratory Rate 18 Blood Pressure 142/70 H Pulse Oximetry 100 Oxygen Delivery Room Air Room Air 08/19/24 21:16 08/19/24 21:22 08/20/24 05:51 Temperature 97.6 F 98.0 F Pulse Rate 60 57 L Respiratory Rate 18 18 Blood Pressure 144/74 H 149/74 H Pulse Oximetry 98 98 99 Oxygen Delivery Room Air Intake/Output Intake/Output: Intake & Output 08/17/24 08/18/24 08/19/24 08/20/24 23:59 23:59 23:59 23:59 Intake Total 2550 1000 1050.0 500 Output Total 900 2050 2250 975 Balance 1650 -1050 -1200.0 -475 Meds/Results Medications: Active Medications Generic Name Dose Route Start Last Admin Trade Name Freq PRN Reason Stop Dose Admin Acetaminophen 650 mg 08/17/24 15:40 Acetaminophen 325 Mg Tablet PO Q4H PRN Mild Pain (1-3) or Fever Amlodipine Besylate 10 mg 08/18/24 09:00 08/19/24 09:20 Amlodipine Besylate 10 Mg Tablet PO 10 mg QAM ROCIO Administration Atorvastatin Calcium 20 mg 08/18/24 09:00 08/19/24 09:20 Atorvastatin 20 Mg Tablet PO 20 mg DAILY ROCIO Administration Brimonidine Tartrate 1 drop 08/18/24 09:00 08/19/24 09:20 Brimonidine Tartrate 0.2% Op Soln 5 Ml Btl EACH EYE 1 drop DAILY ROCIO Administration Calcitriol 0.25 mcg 08/19/24 09:00 08/19/24 09:20 Calcitriol 0.25 Mcg Capsule PO 0.25 mcg MoWeFr@0900 ROCIO Administration Cyanocobalamin 1,000 mcg 08/19/24 09:00 08/19/24 09:21 Cyanocobalamin Inj 1,000 Mcg/Ml Vial IM 08/20/24 08:59 1,000 mcg DAILY ROCIO Administration Diphenhydramine HCl 25 mg 08/18/24 16:15 Diphenhydramine Hcl Cap 25 Mg Capsule PO Q6H PRN Itching Doxazosin Mesylate 2 mg 08/18/24 09:00 Doxazosin Mesylate 2 Mg Tablet PO DAILY ROCIO Furosemide 20 mg 08/18/24 09:00 08/19/24 17:53 Furosemide 20 Mg Tablet PO 20 mg BID ROCIO Administration Gabapentin 1,200 mg 08/17/24 22:15 08/20/24 06:32 Gabapentin 400 Mg Capsule PO 1,200 mg Q8HR ROCIO Administration Cefepime HCl 2 gm in 50 mls @ 100 mls/hr 08/20/24 00:00 08/20/24 01:22 Maxipime 2 Gm/Ns 50 Ml IVPB Infused Q12H ROCIO Infusion Latanoprost 1 drop 08/17/24 22:15 08/19/24 22:27 Latanoprost 0.005% Op Soln 2.5 Ml Btl EACH EYE 1 drop HS ROCIO Administration Miscellaneous Information 1 each 08/18/24 00:01 08/18/24 07:50 Clarify Trazodone--Unable To Do A Ranged Dose Unless Each Dose Has Prn Parameters. Ok To D XX 09/17/24 00:00 Not Given CLARIFY [facility] Miscellaneous Information 1 each 08/18/24 00:01 08/18/24 07:50 Gregorio And Flomax Is Duplicate Therapy--According To External Med History Flomax Was Last XX 09/17/24 00:00 Not Given CLARIFY [facility] Miscellaneous Information 0 each 08/18/24 00:01 Tymlos Is Non-Formulary. Use Pt Own Supply? XX 09/17/24 00:00 CLARIFY [facility] Multivitamins/Calcium 1 tablet 08/20/24 09:00 Therapeutic Multivitamins/Minerals Tab (*Bkc) PO DAILY [facility] Non-Formulary Medication 80 mcg 08/19/24 09:00 Abaloparatide [Tymlos] SUB-Q 09/18/24 08:59 DAILY ROCIO Ondansetron HCl 4 mg 08/17/24 15:40 Ondansetron Inj 4 Mg/2 Ml Vial IV PUSH Q4H PRN Nausea Polyethylene Glycol 17 gm 08/17/24 22:05 08/18/24 13:20 Polyethylene Glycol 3350 17 Gm Powd.Pack PO 17 gm QAM PRN Administration constipation Tamsulosin HCl 0.8 mg 08/18/24 09:00 Tamsulosin Hcl 0.4 Mg Capsule PO DAILY ROCIO Timolol Maleate 1 drop 08/18/24 09:00 08/19/24 09:22 Timolol Maleate 0.5% Op Soln 5 Ml Bottle EACH EYE 1 drop DAILY ROCIO Administration Trazodone HCl 0 mg 08/17/24 22:05 Trazodone Hcl 50 Mg Tablet PO QHS PRN insomnia Radiology Results: ITS Impressions Chest X-Ray 08/17/24 12:33 IMPRESSION: No acute cardiopulmonary pathology. Head CT 08/17/24 12:42 IMPRESSION: No acute intracranial findings. Cervical Spine CT 08/17/24 13:02 IMPRESSION: No evidence for cervical spine fracture or traumatic subluxation. Multilevel degenerative changes of the cervical spine. Labs Labs: Laboratory Results - last 24 hr 08/19/24 08/20/24 08:24 05:10 WBC 7.7 RBC 4.30 L Hgb 12.3 L Hct 38.3 L MCV 89.1 MCH 28.6 MCHC 32.1 RDW 14.3 Plt Count 145 L MPV 10.5 H Immature Gran % (Auto) 0.6 H Neut % (Auto) 71.0 Lymph % (Auto) 15.3 L [place] % (Auto) 9.3 H Eos % (Auto) 3.0 Baso % (Auto) 0.8 Lymph # (Auto) 1.18 [place] # (Auto) 0.7 H Eos # (Auto) 0.2 Baso # (Auto) 0.1 Abs Immat Gran (auto) 0.05 H Absolute Neuts (auto) 5.5 Absolute Nucleated RBC 0.000 Nucleated RBC % 0.0 Sodium 142 Potassium 4.2 Chloride 108 H Carbon Dioxide 24 Anion Gap 10 BUN 27 H Creatinine 1.74 H Estim Creat Clear Calc 36 Estimated GFR 38 L Glucose 177 H Lactic Acid 0.7 Calcium 8.7 Iron 62 TIBC 233 L % Saturation 27 Ferritin 209.00 Total Bilirubin 0.8 AST 55 ALT 27 Alkaline Phosphatase 53 Total Protein 7.4 Albumin 3.9
[2024-08-20] MEDS: amLODIPine BESYLATE 10 MG TABLET PO (09:40)
[2024-08-20] MEDS: BRIMONIDINE TARTRATE 0.2% OP SOLN 5 ML BTL 1 DROP EACH EYE (09:40)
[2024-08-20] MEDS: ATORVASTATIN 20 MG TABLET PO (09:40)
[2024-08-20] MEDS: THERAPEUTIC MULTIVITAMINS/MINERALS TAB (*BKC) 1 TABLET PO (09:41)
[2024-08-20] MEDS: TIMOLOL MALEATE 0.5% OP SOLN 5 ML BOTTLE 1 DROP EACH EYE (09:41)
[2024-08-20] MEDS: FUROSEMIDE 20 MG TABLET PO (09:41)
[2024-08-20] MEDS: polyethylene glycoL 3350 17 GM POWD.PACK PO (09:45)
--- NOTE | 2024-08-20 11:41 | PM.DS ---
DS: Admitting Diagnosis Discharge Date 08/20/24 Admitting Diagnosis Falls, confusion DS: Discharge Diagnosis Discharge Diagnosis (1) Bacteremia: Code(s): R78.81 - Bacteremia Status: Acute (2) Acute UTI: Code(s): N39.0 - Urinary tract infection, site not specified Status: Acute DS: Summary Hospital Course Reason for hospitalization: Copied from [facility] 08/17: 74 y/o M with PMH of urinary retention, CHF, AFib/flutter, PE, CKD, alcohol abuse, osteoporosis, BPH, asthma, GERD, diabetes, and polyneuropathy presents here with multiple falls and confusion. The patient presents here from home via EMS for further evaluation of multiple falls, weakness, and increased confusion. HPI detained through chart review, patient interview, and EMS report. Per [id number], and caregiver the patient has not been acting like himself. EMS reported they have been to the patient's residence approximately 3 times this week for a lift assist secondary to falls. Patient refused transport 3 times prior. At baseline the patient is orientated A&Ox4, arrived to the emergency department A&O x1. EMS reported that the patient complained of inability to urinate while in route. He denies accompanying abdominal pain, suprapubic pain, dysuria, urinary frequency, fever, chills, or body aches. He has a history of weakness and numbness to his left hand and weakness in his left lower extremity. The left lower extremity weakness has been ongoing since October of 2023. Left hand weakness was first noted in his office visit notes in January of 2024. He recently followed up with neuro surgery in June of 2024 -during this visit the provider recommended an MRI of his cervical spine/brain with and without contrast as well as an EMG of his bilateral upper extremities. The patient reports he has not had these images/EMG completed. He currently lives at home alone and has a caregiver who helps 3 times per week. Currently uses a walker. Patient feels he is falling more because he is getting old. Initial VS at presentation: 99.1? F, HR 93, R 20, 146/77, and 97% on RA. ED workup showed: WBC 12.8, hemoglobin 12.1, normal coags, creatinine 1.9 and GFR 35 (at baseline), glucose 211, lactic 1.1, ammonia negative, CK 734, and initial troponin negative. UA suggestive of UTI. UDS negative, ethanol negative, viral PCR negative. CXR showed no acute cardiopulmonary pathology. Head CT showed no acute intracranial findings. C-spine CT showed no evidence of cervical spine fracture or traumatic subluxation, multilevel degenerative changes of the C-spine. Hospital Course: Sepsis: 08/17 Blood cultures positive, growing GNB. Stopped Vanc/Cefe and started empiric Cefepime Urine culture 08/17 growing ecoli--sensitivities pending Afebrile. VSS Urine culture growing ecoli. Final blood cultures sensitive to quinolones so discharged with levaquin Chowdhury removed and voiding. Follow up with urology. Previously taking doxazosin and tamsulosin UTI (urinary tract infection): Hematuria UA: Turbid, 3+ protein, 1+ ketones, 3+ blood, positive nitrates, 3+ leuks, 11-20 RBC, greater than 100 WBC, WBC clumps present, few epithelial cells, 4+ bacteria. Could be contamination, however given nitrates and 4+ bacteria with only few epithelial cells in favor of infection. 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 - started on Ceftriaxone and vancomycin on 08/17. Now on Cefepime pending cultures given bacteremia - 400 mL retained post-void, chowdhury to be placed and continue Flomax. Has hx of same, likely exacerbated by current UTI. Benign hypertension with CKD (chronic kidney disease) stage III: Hypertensive chronic kidney disease with stage 1 through stage 4 chronic kidney disease, or unspecified chronic kidney disease; - chronic, currently 133/77 - continued home medications: Amlodipine Chronic kidney disease stage BPH DC'd Chowdhury after void trial trial today. DC Chowdhury - creatinine 1.9>1.6, GFR 39. Previously 1.89 and GFR 35 on 04/18/2024. - trend renal function - trend electrolytes, correct as needed Confusion: Head CT: No acute intracranial findings - reviewed previous office visit notes and d/c summary from May of 2023 - intermittent confusion appears to be a frequent complaint/noted finding. may be exacerbated by acute UTI. ammonia negative, UDS negative, viral PCR negative, ethanol negative. Neuro checks q.6 - did not meet SIRS criteria, however blood cultures obtained in ED on 08/17 - history of alcoholism, not drinking recently-> B12 low, folace >20, thiamine pending. ETOH negative. Left-sided muscle weakness: - undergoing outpatient work up, chronic for some time. - likely contributing to falls - PT/OT eval for placement vs acute rehab - care coordination for d/c planning Frequent falls: Head CT, C-spine CT, and CXR negative for acute findings post falls, Increased number of falls over the past week, requiring 3 lift assist at home where patient refused transport. 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 Indicates vitamin B12 deficiency 1 dose 1000mcg B12 today then change to PO. Discharged with sublingual --Continue B12 sublingual --MVI --Further workup with PCP Status at Discharge Cognitive/behavioral status at discharge: A&Ox4 Time Spent with Patient Time attestation: Total time spent providing and/or coordinating discharge services:45 minutes Exam Narrative: General - Awake and alert. No acute distress Eyes - PERRLA, EOM intact ENT - No thrush, No erythema Neck - No noticeable or palpable swelling Lymph Nodes - No lymphadenopathy Cardiovascular - RRR no m/r/g, no JVD Lungs: Clear to auscultation, No wheezing, use of accessory muscles, no crackles or wheezes. Skin - Skin warm and dry, no wounds or rashes Abdomen - Normal bowel sounds, abdomen soft and nontender Extremities - No edema, cyanosis or clubbing Musculoskeletal - 5/5 strength, normal range of motion, no swollen or erythematous joints. Neurological ? Alert and oriented x 3, CN 2-12 grossly intact. Psych: Normal mood and affect DS: Data Data Completed and Pending Labs on day of discharge: Labs from last 24 hours 08/20/24 05:10 Iron 62 TIBC 233 L % Saturation 27 Ferritin 209.00 Methylmalonic Acid Pending Preliminary micro results at discharge 08/17/24 13:18 Blood Culture - Preliminary Blood Escherichia Coli 08/17/24 13:18 Blood Culture - Preliminary Blood Discharge Plan Discharge Attending physician on discharge: Krista Tucker Consulting providers: Abrahan Felipe; Aleyda Strange; Elías Clark; Ajith Maharaj Discharging Clinician: Krista Tucker Anticipated Discharge Date/Time: 08/20/24 11:04 Patient Disposition: Home with Home Health Service Activity: june shower Diet: regular Discharge Instructions: Care Coordination: Patient to have [facility] for [facility]/OT eval and treat, and prison. Their phone number is [phone] if you have any questions; they will contact you to schedule first visit. Follow up with your PCP in 1-2 weeks. Also recommend follow up with urology since your infection was severe. You were previously seen at the office of Dr. Alfredo. Call to schedule an appointment at [phone] Patient Instructions: Antibiotic Form Patient Language: Thai Stand Alone Forms: General Discharge Information Follow-up/Referrals: Abiel Alfredo MD [Physician] - 1 Week (UTI/Bacteremia. Previously on tamsulosin 0.8 and doxazosin) Jaiden Sotelo MD [Primary Care Provider] - 1 Week Discharge Medications: New amlodipine 10 mg Tablet 10 mg PO QAM Qty: 30 0RF multivitamin Tablet 1 tablet PO DAILY Qty: 30 0RF Continued brimonidine 0.2 % drops 1 drp ophthalmic (eye) DAILY latanoprost 0.005 % drops 1 drp EACH EYE HS zinc 50 mg tablet 50 mg PO DAILY ascorbic acid (vitamin C) 500 mg tablet 500 mg PO DAILY B-complex with vitamin C Tablet 1 tablet PO DAILY acetaminophen 500 mg capsule 1,000 mg PO Q6H PRN (Reason: Pain (Scale Score 1-3)) trazodone 50 mg tablet See Rx Instructions PO QHS PRN (Reason: insomnia) Qty: 90 0RF Rx Instructions: 1/2-1 tab orally every day at bedtime PRN; timolol maleate 0.5 % drops 1 drp EACH EYE DAILY polyethylene glycol 3350 [Miralax] 17 gram Powder In Packet 17 g PO QAM PRN (Reason: constipation) gabapentin 600 mg tablet 1,200 mg PO TID Qty: 360 0RF cyanocobalamin (vitamin B-12) [Vitamin B-12] 1,000 mcg Tablet 1,000 mcg PO QAM Qty: 30 0RF tamsulosin 0.4 mg capsule 0.8 mg PO DAILY Qty: 60 0RF furosemide 20 mg tablet 20 mg PO BID Qty: 60 0RF metformin 500 mg tablet extended release 24 hr 1,000 mg PO DAILY Qty: 60 0RF magnesium 200 mg tablet 200 mg PO DAILY 30 Days Qty: 30 0RF aspirin 81 mg tablet,delayed release (DR/EC) 81 mg PO DAILY Qty: 90 0RF atorvastatin 20 mg tablet 20 mg PO DAILY Qty: 90 2RF Tymlos 80 mcg (3,120 mcg/1.56 mL) pen injector 80 mcg subcut DAILY Qty: 1.56 11RF Rx Instructions: inject into abdomen; do not inject within 2 inches of belly button/navel; rotate sites calcitriol 0.25 mcg capsule See Rx Instructions .ROUTE .COMPLEX Qty: 12 12RF Dose Instruction: TAKE 1 CAPSULE BY MOUTH THREE TIMES WEEKLY. TAKE ON MONDAYS, WEDNESDAYS, AND FRIDAYS Rx Instructions: TAKE 1 CAPSULE BY MOUTH THREE TIMES WEEKLY. TAKE ON MONDAYS, WEDNESDAYS, AND FRIDAYS Discontinued pseudoephedrine HCl [Wal-Phed D] 120 mg tablet extended release 120 mg PO Q12H PRN (Reason: Congestion) prednisone 20 mg tablet 20 mg PO .COMPLEX Qty: 18 0RF Rx Instructions: 20 mg orally 3 tabs x 3 days, 2 tabs x 3 days, 1 tabs x 3 days; doxazosin 2 mg tablet 2 mg PO DAILY Qty: 90 3RF amlodipine [Norvasc] 5 mg tablet 10 mg PO QAM Qty: 60 5RF Date of admission: 08/18/24 10:53 Primary Care Provider: Jaiden Sotelo Admitting Provider: Margaret Chen Attending physician on admission: Krista Tucker Condition: Stable Hospitalist MIPS Heart Failure (Exclusion) Patient has history of Heart Transplant or Left Ventricular Assistive Device?: No IF YES, STOP HERE Heart Failure (Qualifier) Patient has current or prior documentation of LVEF less than or equal to 40%, or mod/servere depressed LVSF?: No IF NO, STOP HERE
[2024-08-20] MEDS: levoFLOXacin 750 MG TABLET PO (13:35)
[2024-08-21 11:14] LABS: ADAMTS-13 Activity 0.56 IU/mL (0.68-1.63)
[2024-08-21 23:44] LABS: Vitamin B1. 34 nmol/L (8-30)
[2024-08-22 23:07] LABS: Methylmalonic Acid. 855 nmol/L (69-390)
== END 2024-08-20 14:15 | disposition home health service (06) | DRG 872 ==
LOC: ANHED 15:44 → ANH2MED 15:51
PROVIDERS: Emergency Medicine; Student in an Organized Health Care Education/Training Program; Admitting Provider Internal Medicine; Emergency Provider Student in an Organized Health Care Education/Training Program; PCP Family Medicine Adolescent Medicine; Visit Provider Nurse Practitioner Acute Care
DX: A41.9 Sepsis, unspecified organism (principal); N39.0 Urinary tract infection, site not specified; I48.20 Chronic atrial fibrillation, unspecified; I50.9 Heart failure, unspecified; N18.32 Chronic kidney disease, stage 3b; E11.22 Type 2 diabetes mellitus with diabetic chronic kidney disease; E11.42 Type 2 diabetes mellitus with diabetic polyneuropathy; E78.5 Hyperlipidemia, unspecified; J45.909 Unspecified asthma, uncomplicated; N40.1 Benign prostatic hyperplasia with lower urinary tract symptoms; R33.8 Other retention of urine; D69.6 Thrombocytopenia, unspecified; I12.9 Hypertensive chronic kidney disease with stage 1 through stage 4 chronic kidney disease, or unspecified chronic kidney disease; M50.30 Other cervical disc degeneration, unspecified cervical region; M81.0 Age-related osteoporosis without current pathological fracture; M19.90 Unspecified osteoarthritis, unspecified site; M79.642 Pain in left hand; M62.81 Muscle weakness (generalized); M54.50 Low back pain, unspecified; G89.29 Other chronic pain; R20.0 Anesthesia of skin; R29.6 Repeated falls; H40.1132 Primary open-angle glaucoma, bilateral, moderate stage; Z20.822 Contact with and (suspected) exposure to COVID-19; Z79.82 Long term (current) use of aspirin; Z86.711 Personal history of pulmonary embolism
CPT/HCPCS: 36415; 70450; 71046; 72125; 80048; 80053; 80143; 80179; 80307; 81001; 82077; 82140; 82550; 82607; 82728; 82746; 83010; 83540; 83550; 83605; 83615; 83921; 84425; 84443; 84484; 85025; 85046; 85384; 85397; 85610; 85730; 87040; 87086; 87186; 87637; 93005; 96365; 96367; 96375; 97110; 97162; 97165; 97530; 99285; A9270; G0378; J0692; J0696; J3370; J3411; J3420; J7030; J7040

== ENCOUNTER 2024-08-30 12:09 | Outpatient (NON) | payer MEDICARE, MEDICAID, SELFPAY ==
--- OUTSIDE RECORDS SUMMARY | 2024-08-30 12:12 | XMS_ITS | Encounter Summary ---
Author Organization [facility] Health Address [address] [place] [address] Care Team Providers Care Director Of Aviation Name Role Phone Jaiden Sotelo MD Primary [...] file Not on file Not on file documented as of this encounter Functional Status * Is person deaf or have serious hearing difficulty? Answer Date of Assessment Author No 10/29/2016 5:11 PM NAHOMYT Maricel Lopez RN * Is person blind or have serious difficulty seeing? Answer Date of Assessment Author No 10/29/2016 5:11 PM NAHOMYT Maricel Lopez RN * Does person have serious difficulty walking/climbing stairs? Answer Date of Assessment Author Yes 10/29/2016 5:11 PM NAHOMYT Maricel Lopez RN * Does person have difficulty dressing/bathing? Answer Date of Assessment Author No 10/29/2016 5:11 PM CDT Maricel Lopez RN * Does person have difficulty doing errands alone? Answer Date of Assessment Author No 10/29/2016 5:11 PM NAHOMYT Maricel Lopez RN documented as of this encounter Mental Status * Does person have difficulty concentrating/remembering/making decisions? Answer Entry Date Author No 10/29/2016 5:11 PM CDT Maricel Lopez RN documented in this encounter Plan of Treatment Not on file documented as of this encounter Visit Diagnoses Not on filedocumented in this encounter Additional Health Concerns Infection Onset Date Last Indicated Resolved Time COVID-19 Under Investigation 11/01/2019 11/01/2019 11/02/2019 7:12 PM CDT documented as of this encounter Care Teams Director Of Aviation Relationship Specialty Start Date End Date Jaiden Sotelo MD [address] [address] PCP - General Family Medicine 10/01/16 documented as of this encounter
--- OUTSIDE RECORDS SUMMARY | 2024-08-30 12:12 | XMS_ITS | Encounter Summary ---
Author Organization [facility] Address [address] [place] [address] Care Team Providers Care Files Supervisor Name Role Phone Jaiden Sotelo MD Primary Care Provider + Encounter Details Date Type Department Care Team (Latest Contact Info) Description 03/30/2020 11:28 AM [facility] Encounter [address] [address] Iris Wu MD [address] [place] [address] [address] [place] [id number] [facility] [employer] Social History Tobacco Use Types [...] 11/30/2019 1:51 PM CDT Lorena, Sa mantha, PRINTED CIRCUIT BOARD DESIGNER-DISTRIBUTION DISPATCHER * Is person blind or have serious difficulty seeing? Answer Date of Assessment Author No 11/30/2019 1:51 PM CDT Lorena, Sa mantha, PRINTED CIRCUIT BOARD DESIGNER-DISTRIBUTION DISPATCHER * Does person have serious difficulty walking/climbing stairs? Answer Date of Assessment Author Yes 11/30/2019 1:51 PM CDT Lorena, Sa mantha, PRINTED CIRCUIT BOARD DESIGNER-DISTRIBUTION DISPATCHER * Does person have difficulty dressing/bathing? Answer Date of Assessment Author Yes 11/30/2019 1:51 PM CDT Lorena, Sa mantha, PRINTED CIRCUIT BOARD DESIGNER-DISTRIBUTION DISPATCHER * Does person have difficulty doing errands alone? Answer Date of Assessment Author Yes 11/30/2019 1:51 PM CDT Lorena Sa mantha, PRINTED CIRCUIT BOARD DESIGNER-DISTRIBUTION DISPATCHER documented as of this encounter Mental Status * Does person have difficulty concentrating/remembering/making decisions? Answer Entry Date Author No 11/30/2019 1:51 PM CDT Lorena, Sa mantha, PRINTED CIRCUIT BOARD DESIGNER-DISTRIBUTION DISPATCHER documented in this encounter Plan of Treatment Not on file documented as of this encounter Visit Diagnoses Not on filedocumented in this encounter Care Teams Files Supervisor Relationship Specialty Start Date End Date Jaiden Sotelo MD [address] [place] [id number] PCP - General Family Medicine 10/01/16 documented as of this encounter
--- OUTSIDE RECORDS SUMMARY | 2024-08-30 12:12 | XMS_ITS | Continuity of Care Document ---
Author Organization [facility] Address [address] [place] [address] [address] [place] [address] Phone Care Team Providers Care Ship Joiner Name Role Phone [facility] Unavailable Unavail able James Cee Unavailable Unavailable Procedures Procedure Date Progressive Lens, Plastic Progressive Lens, Plastic Frames Deluxe Tax - Medical Visual Field Examination(s) Eye Exam, New Patient Refraction Advance Directives Directive Yes / No Effective Date File Name No Information Encounters Encounter Description Practice Location Reason(s) For Visit Diagnoses Date Provider Providers Copied on Encounter [facility], [address] [place] [address] [address], [place], [place], [id number], [place] tel:[phone] [facility] No Information 8-200 7 [facility] . [address], [id number], [place]. tel:[phone] Referring Provider: Juancarlos Vargas, [address] [place] [address] [address], [place], [address]. tel:[phone] sulting Provider: James Cee, [address] [place] [address], [place], [address]. tel:[phone] [facility], [id number] [place] [address] [address], [place], [place], [id number], [place] tel:[phone] [facility] No Information 0-200 7 [facility] . [address], [address], [place], [place], [id number], . tel:[phone] Referring Provider: Juancarlos Vargas, [address] [place] [address] [address], [place], [address]. tel:[phone] Provider: James Cee, [address] [place] [address], [place], [address]. tel:[phone] [facility], [address] [place], [place] [address] [address], [place], [place], [id number], tel:[phone] [facility] No Information May-3 0-200 7 [place] OD Juancarlos. [address] [place] [address] , [facility] [address], [place], [address], [place]. tel:[phone] Referring Provider: Juancarlos Vargas, [address] [place] [address] [address], [place], [place], [facility]. tel:[phone] [facility], [address] [place], [place] [address] [address], [place], [place], [id number], tel:[phone] [facility] No Information May-0 9-200 7 [place] OD Juancarlos. [address] [place] [address] , [address], [place], [address], [place]. tel:[phone] Family History Family Member Type Diagnosis Age At Onset No Information Payers Payer name Insurance type Covered libertarian ID Authoriza tion(s) No Information Social History [...]
--- OUTSIDE RECORDS SUMMARY | 2024-08-30 12:12 | XMS_ITS | Clinical Summary ---
Author Organization [facility] Address [address], [place] [address] Phone Care Team Providers Care Geomatics Professor Name Role Phone Jaiden Mendez MD Primary Care Provider [phone] Allergies Active Allergy Reactions Criticality Noted Date Comments Codeine Other (see comments) Low 04/13/2018 Really bad constipation Really bad constipation Medications furosemide (LASIX) 20 MG tablet Take 1 tablet (20 mg total) by mouth 2 (two) times a day 60 tablet 11 2 Active atorvastatin (LIPITOR) 20 MG tablet Take 20 mg by mouth 1 (one) time each day 1 Active brimonidine (ALPHAGAN) 0.15 % ophthalmic solution Administer 1 drop into both eyes 2 (two) times a day 1 Active diclofenac (VOLTAREN) 75 MG EC tablet Take 75 mg by mouth 2 (two) times a day 1 Active doxazosin (CARDURA) 2 MG tablet Take 2 mg by mouth 1 (one) time each day 1 Active gabapentin (NEURONTIN) 600 MG tablet Take 1,200 mg by mouth 2 (two) times a day 1 Active glimepiride (AMARYL) 2 MG tablet Take 2 mg by mouth 1 (one) time each day 1 Active metFORMIN XR 500 MG 24 hr tablet Take 1,000 mg by mouth 2 (two) times a day 2 Active predniSONE (DELTASONE) 10 MG tablet 1 Active tamsulosin (FLOMAX) 0.4 MG 24 hr capsule Take 0.8 mg by mouth every night 2 Active traZODone (DESYREL) 50 MG tablet Take 50 mg by mouth every night 1 Active clopidogrel (PLAVIX) 75 MG tablet Take 75 mg by mouth 1 (one) time each day 2 Active traMADol (ULTRAM) 50 MG tablet Take 50 mg by mouth every 6 (six) hours if needed for pain 2 Active Brimonidine-Gordon zolamide 0.15-2 % solution Administer 1 drop into [...] (03/24/2021): Added automatically from request for surgery [id number] Bilateral pseudophakia 10/21/2017 Overview (03/24/2021): Last Assessment [...] yearly HVF 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
--- OUTSIDE RECORDS SUMMARY | 2024-08-30 12:12 | XMS_ITS | Encounter Summary ---
Author Organization [facility] Health Address [address] [place] [address] Care Team Providers Care Steam Hoist Operator Name Role Phone Jaiden Sotelo MD [...] difficulty? Answer Date of Assessment Author No 07/02/2018 4:59 PM CDT Rachel Torres RN * Is person blind or have serious difficulty seeing? Answer Date of Assessment Author No 07/02/2018 4:59 PM CDT Rachel Torres RN * Does person have serious difficulty walking/climbing stairs? Answer Date of Assessment Author No 07/02/2018 4:59 PM CDT Rachel Torres RN * Does person have difficulty dressing/bathing? Answer Date of Assessment Author No 07/02/2018 4:59 PM CDT Rachel Torres RN * Does person have difficulty doing errands alone? Answer Date of Assessment Author No 07/02/2018 4:59 PM CDT Rachel Torres RN documented as of this encounter Mental Status * Does person have difficulty concentrating/remembering/making decisions? Answer Entry Date Author No 07/02/2018 4:59 PM CDT Rachel Torres RN documented in this encounter Plan of Treatment Not on file documented as of this encounter Visit Diagnoses Not on filedocumented in this encounter Additional Health Concerns Infection Onset Date Last Indicated Resolved Time COVID-19 Under Investigation 11/01/2019 11/01/2019 11/02/2019 7:12 PM CDT documented as of this encounter Care Teams Steam Hoist Operator Relationship Specialty Start Date End Date Jaiden Sotelo MD [address] [address] PCP - General Family Medicine 10/01/16 documented as of this encounter
--- OUTSIDE RECORDS SUMMARY | 2024-08-30 12:12 | XMS_ITS | Encounter Summary ---
Author Organization [facility] Health Address [address] [place] [address] Care Team Providers Care Malt House Kiln Operator Name Role Phone Jaiden Sotelo MD [...] documented as of this encounter Care Teams Malt House Kiln Operator Relationship Specialty Start Date End Date Jaiden Sotelo MD [address] [address] PCP - General Family Medicine 10/01/16 documented as of this encounter
--- OUTSIDE RECORDS SUMMARY | 2024-08-30 12:12 | XMS_ITS | Encounter Summary ---
Author Organization [facility] Health Address [address] [place] [address] Care Team Providers Care Site Manager Name Role Phone Jaiden Sotelo MD Primary [...] documented as of this encounter Care Teams Site Manager Relationship Specialty Start Date End Date Jaiden Sotelo MD [address] [address] PCP - General Family Medicine 10/01/16 documented as of this encounter
--- OUTSIDE RECORDS SUMMARY | 2024-08-30 12:12 | XMS_ITS | Clinical Summary ---
Author Organization [facility] Address [address] [place] [address] Care Team Providers Care Cashier Tube Room Name Role Phone Unavailable Primary Care Provider [...] day. This was being given bid at [facility] but changed to nightly while in Rehab [...] Comments Blood Pressure 115/72 04/18/2020 8:32 AM INSTRUCTOR FLYING Pulse 74 04/18/2020 8:32 AM INSTRUCTOR FLYING Temperature 36.4 C (97.6 F) 04/18/2020 8:32 AM INSTRUCTOR FLYING Respiratory Rate 18 04/18/2020 8:32 AM INSTRUCTOR FLYING Oxygen Saturation 97% 04/18/2020 8:32 AM INSTRUCTOR FLYING Inhaled Oxygen Concentration - - Weight 61.2 kg (135 lb) 04/08/2020 7:36 PM INSTRUCTOR FLYING Height 180.3 cm (5' 11) 04/08/2020 7:36 PM INSTRUCTOR FLYING Body Mass Index 18.83 04/08/2020 7:36 PM INSTRUCTOR FLYING Plan of Treatment Not on file Advance Directives * Full Resuscitation (Latest Code Status on File) Date Activated Date Inactivated Comments 04/04/2020 7:09 PM 04/18/2020 5:20 PM Full code
--- OUTSIDE RECORDS SUMMARY | 2024-08-30 12:12 | XMS_ITS | Encounter Summary ---
Author Organization [facility] Health Address [address] [place] [address] Care Team Providers Care Licensed Mental Health Professional Name Role Phone Jaiden Sotelo MD Primary [...] documented as of this encounter Care Teams Licensed Mental Health Professional Relationship Specialty Start Date End Date Jaiden Sotleo MD [address] [address] PCP - General Family Medicine 10/01/16 documented as of this encounter
--- OUTSIDE RECORDS SUMMARY | 2024-08-30 12:12 | XMS_ITS | Encounter Summary ---
Author Organization [facility] Health Address [address] [place] [address] Care Team Providers Care Beating Machine Operator Name Role Phone Jaiden Sotelo MD [...] documented as of this encounter Care Teams Beating Machine Operator Relationship Specialty Start Date End Date Jaiden Sotelo MD [address] [address] PCP - General Family Medicine 10/01/16 documented as of this encounter
--- OUTSIDE RECORDS SUMMARY | 2024-08-30 12:12 | XMS_ITS | Clinical Summary ---
Author Organization [facility] Address [address] [place] [address] Care Team Providers Care Community Ambassador Name Role Phone Jaiden Sotelo MD Primary Care Provider + Source Comments [facility]non-owned Affiliates and Associated Physician Practices is amultiple site organization consisting of ambulatory clinics and hospital sitesin [place], [place], [place] and [place]. This disclosure is being madepursuant to the Care Everywhere program and may not contain all information available regarding this patient. Last updated 17.[facility] Allergies Active Allergy Reactions Criticality Noted Date Comments Codeine Other Low 04/13/2018 Really bad constipation Medications * Be aware that medications may not be up to date on this document. Alwaysverify current medications with the patient. doxazosin (CARDURA) 2 MG tablet Take 2 mg by mouth once daily Active gabapentin (NEURONTIN) 600 MG tablet TAKE 2 TABLETS(1200 MG) BY MOUTH THREE TIMES DAILY 6 Active glimepiride (AMARYL) 2 MG tablet Take 2 mg by mouth daily with breakfast Active omeprazole (PRILOSEC) 20 MG capsule Take 20 mg by mouth daily before breakfast Active clobetasol (TEMOVATE) 0.05 % solution Apply to scalp, up to twice daily as needed 5 Active PROAIR HFA 108 (90 BASE) MCG/ACT inhaler Inhale 2 puffs by mouth every 6 hours as needed 9 Active ascorbic acid (VITAMIN C) 250 MG tablet Take 250 mg by mouth once daily Active B Complex Vitamins (VITAMIN B COMPLEX PO) Take 1 capsule by mouth once daily Active CALCIUM-MAGNESI UM-ZINC PO Take 1 tablet by mouth Active hydroCHLOROthia zide (HYDRODIURIL) 25 MG tablet Take 25 mg by mouth once daily 9 Active atorvastatin (LIPITOR) 20 MG tablet Take 20 mg by mouth at bedtime Active calcium carbonate (TUMS) 500 MG chew tablet Take 1 tablet by mouth every 4 hours as needed for Heartburn 0 Active Additional Information Patient not taking.Reported on 09/16/2021 predniSONE (DELTASONE) 10 MG tablet Take 1.5 tablets by mouth once daily 0 Active Additional Information Patient not taking.Reported on 09/16/2021 docusate sodium (COLACE) 100 MG capsule Take 1 capsule by mouth 2 times daily 0 Active Additional Information Patient not taking.Reported on 09/16/2021 methocarbamol (ROBAXIN) 750 MG tablet Take 1 tablet by mouth 2 times daily as needed for Muscle Spasms 60 tablet 1 0 Active Additional Information Patient not taking.Reported on 09/16/2021 aspirin (ASPIRIN) 81 MG chew tablet Take 81 mg by mouth once daily 1 Active busPIRone (BUSPAR) 10 MG tablet 1 Active ELIQUIS 5 MG tablet 1 Active melatonin 5 MG tablet Take 10 mg by mouth once daily as needed Active metFORMIN (GLUCOPHAGE) 1000 MG tablet 1 Active tiZANidine (ZANAFLEX) 4 MG tablet 1 Active traZODone (DESYREL) 50 MG tablet 1 Active diphenhydramine (BENADRYL) 25mg/50ml SOLN ivpb 25 mg by Intravenous route Active BRIMONIDINE 0.15%-DORZOLAMI DE 2% PF EYE DROPS (COMPOUNDED) 1 drop Active furosemide (LASIX) 40 MG tablet Take 40 mg by mouth once daily Active lidocaine (LIDODERM) 5 % patch Apply 1 patch to skin once daily Active B Jqzimkz-K-Gognx Acid (RENAL VITAMIN) 0.8 MG TABS Active metFORMIN ER 24hr (GLUCOPHAGE XR) 500 MG tablet Take 1,000 mg by mouth 2 times daily 1 Active Active Problems Problem Noted Date Diagnosed Date Shortness of breath 11/22/2019 Chronic midline low back pain 10/28/2019 Abdominal pain 10/27/2019 Preop examination 07/02/2018 Spine deformity, acquired Immunizations Immunization Administration Dates Next Due INFLUENZA VACCINE 10/15/2018 [...] file Not on file Not on file Last Filed Vital Signs Vital Sign Reading Time Taken Comments Blood Pressure 125/77 09/16/2021 1:43 PM CDT Pulse 69 09/16/2021 1:43 PM CDT Temperature 36.4 C (97.5 F) 11/19/2020 11:35 AM CDT Respiratory Rate 14 01/16/2020 8:59 AM HOSIERY LOOPER Oxygen Saturation 100% 09/16/2021 1:43 PM CDT Inhaled Oxygen Concentration 21% 12/10/2019 1 :16 PM CDT Weight 73.5 kg (162 lb) 11/19/2020 11:35 AM CDT Height 177.8 cm (5' 10) 11/19/2020 11:35 AM CDT Body Mass Index 23.24 11/19/2020 11:35 AM CDT Plan of Treatment Health Maintenance Due Date Last Done Comments COLOGUARD (AGES 45-75) - COL ON CA SCREENING [...] (2 of 2) 12/13/2018 10/18/2018 COVID-19 VACCINE ( - 2023-2 5 season) 2023 Respiratory Syncytial Virus (RSV) Vaccine Pt: or over 60 yrs (1 - 1-dose 75+ series) 01/20/2024 DEPRESSION SCREENING 02/24/2024 MEDICARE AWV CALENDAR YEAR 2024 INFLUENZA VACCINE (Season Ended) 2024 11/16/2019, 10/15/2018 HEPATITIS B VACCINE Aged Out No longe r eligible based on patient's age to complete this topic HIB VACCINE Aged Out No longer eligi ble based on patient's age to complete this topic HPV VACCINE Aged Out No longer eligi ble based on patient's age to complete this topic MENINGOCOCCAL (Group B) VACCINE SHARED DECISION-MAKING Aged Out No longer eligible based on patient's age to complete this topic MENINGOCOCCAL GROUPS A/C/Y/W VACCINE Aged Out No longer eligible b ased on patient's age to complete this topic Medical Devices Implanted Type Area Gasket Inspector Device Identifier Shelf Expiration Date Model / Serial / Lot Penile Implant Other (Type not listed) Penis Coloplast Co TITAN / / Graft Bone Canc 1-4mm 15ml Frzdr Crsh Implanted:Qty: 1 on 10/29/2016 by Yuniel Fuchs MD at [facility] Spine Lumbar Allosource 05/03/2020 [id number] / / [id number] Sub Bngf Progenix Dbm Bvn Clgn Ptty 10ml Implanted:Qty: 1 on 10/29/2016 by Yuniel Fuchs MD at [facility] Spine Lumbar Medtronic Sofamor Danek Inc 04/14/2018 [id number] / / [id number] Locking Nuts Implanted:Qty: 6 on 10/29/2016 by Yuniel Fuchs MD at [facility] Spine Lumbar [id number] / / Corelink Connectors Implanted:Qty: 6 on 10/29/2016 at [facility] Spine Lumbar 64048.01 / / Corelink 6.5 X 55 Screw Implanted:Qty: 4 on 10/29/2016 by Yuniel Fuchs MD at [facility] Spine Lumbar [id number] / / Corelink 6.5 X 50 Screw Implanted:Qty: 2 on 10/29/2016 by Yuniel Fuchs MD at [facility] Spine Lumbar 83513.50 / / Corelink 65mm Khoi Implanted:Qty: 2 on 10/29/2016 by Yuniel Fuchs MD at [facility] Spine Lumbar [id number] / / Corelink 22mm Crosslink Implanted:Qty: 1 on 10/29/2016 by Yuniel Fuchs MD at [facility] Spine Lumbar [id number] / / Implt Dual Lead Sacroiliac 11.5 X 55 Implanted:Qty: 1 on 07/02/2018 by Yuniel Fuchs MD at [facility] Right: Spine [employer] Link Llc [id number] / / Implt Dual Lead Sacroiliac 11.5 X 45 Implanted:Qty: 1 on 07/02/2018 by Yuniel Fuchs MD at [facility] Right: Spine [employer] [id number] / / Graft Bone Alfs Dbm 10ml Gel Implanted:Qty: 1 on 07/02/2018 by Yuniel Fuchs MD at [facility] Right: Spine Allosource 07/25/2020 [id number] / / [id number] Cmnt Bone Kyphon Xpede Spnl Mxr Implanted:Qty: 1 on 11/11/2019 by Grzegorz Mi MD at [facility] N/A: Spine Kyphon Inc 04/22/2022 [id number] / / [id number] Cmnt Bone Hv-R Kphx Mxr Grad Mrk Dspns Implanted:Qty: 1 on 11/11/2019 by Grzegorz Mi MD at [facility] N/A: Spine Kyphon Inc 04/22/2022 [id number] / / [id number] Cmnt Bone Kyphon Xpede Spnl Mxr Implanted:Qty: 1 on 11/11/2019 by Grzegorz Mi MD at [facility] N/A: Spine Kyphon Inc 12/23/2021 [id number] / / [id number] Cmnt Bone Kyphon Xpede Spnl Mxr Implanted:Qty: 1 on 11/11/2019 by Grzegorz Mi MD at [facility] N/A: Spine Kyphon Inc 05/23/2022 [id number] / / [id number] Medtronic Interbody Fusion Device Implanted:Qty: 1 on 11/11/2019 by Grzegorz Mi MD at [facility] N/A: Spine 07/23/2025 [id number] / / [id number] Graft Bone Grftn Dbm Aspt 5x2.5cm Post - [id number] Implanted:Qty: 1 on 11/11/2019 by Grzegorz Mi MD at [facility] N/A: Spine Osteotech Inc 07/12/2022 [id number] / [id number] / Graft Bone Grftn Dbm Aspt 5x2.5cm Post - [id number] Implanted:Qty: 1 on 11/11/2019 by Grzegorz Mi MD at [facility] N/A: Spine Osteotech Inc 05/30/2022 [id number] / [id number] / Interbody Fusion Device Implanted:Qty: 1 on 11/11/2019 by Grzegorz Mi MD at [facility] N/A: Spine Medtronic Neurological 04/28/2025 [id number] / / [id number] Graft Bone Grftn Dbm Aspt 5x2.5cm Post - [id number] Implanted:Qty: 1 on 11/11/2019 by Grzegorz Mi MD at [facility] N/A: Spine Osteotech Inc 07/12/2022 [id number] / [id number] / Screw Set .25in Std 32 Thrd Spne Cap Implanted:Qty: 8 on 11/11/2019 by Grzegroz Mi MD at [facility] N/A: Spine Medtronic Sofamor Danek Inc [id number] / / Screw 9.5mm 90mm Ma Spne Solera Cd Hzn Implanted:Qty: 2 on 11/11/2019 by Grzegorz Mi MD at [facility] N/A: Spine Medtronic Sofamor Danek Inc [id number] / / Screw Set Ti Spnl Brk Off Cd Hzn Nonster Implanted:Qty: 18 on 11/11/2019 by Grzegorz Mi MD at [facility] N/A: Spine Medtronic Sofamor Danek Inc [id number] / / Khoi Spnl Rd 500mm 6mm Str Ccm Ln Implanted:Qty: 2 on 11/11/2019 by Grzegorz Mi MD at [facility] N/A: Spine Medtronic Sofamor Danek Inc [id number] / / Khoi Spnl 500mm 5.5mm Cd Hzn Str Ti Ln Cp Implanted:Qty: 1 on 11/11/2019 by Grzegorz Mi MD at [facility] N/A: Spine Medtronic Inc [id number] / / Laminal Connector Screw Implanted:Qty: 4 on 11/11/2019 by Grzegorz Mi MD at [facility] N/A: Spine Medtronic Inc [id number] / / 6.5 X 45 Screw Implanted:Qty: 2 on 11/11/2019 by Grzegorz Mi MD at [facility] N/A: Spine Medtronic Inc [id number] / / 7.5 X 45 Screw Implanted:Qty: 4 on 11/11/2019 by Grzegorz Mi MD at [facility] N/A: Spine Medtronic Inc [id number] / / 7.5 X 50 Screw Implanted:Qty: 4 on 11/11/2019 by Grzegorz Mi MD at [facility] N/A: Spine Medtronic Inc [id number] / / 7.5 X 55 Screw Implanted:Qty: 4 on 11/11/2019 by Grzegorz Mi MD at [facility] N/A: Spine Medtronic Inc [id number] / / Inner Trs Adapter Implanted:Qty: 16 on 11/11/2019 by Grzegorz Mi MD at [facility] N/A: Spine Medtronic Inc [id number] / / 6.5 X 50 Screws Implanted:Qty: 2 on 11/11/2019 by Grzegorz Mi MD at [facility] N/A: Spine Medtronic Inc [id number] / / Graft Bone Grftn Dbm 5cc Ptty Jr - [id number] Implanted:Qty: 1 on 11/21/2019 by Grzegorz Mi MD at [facility] N/A: Spine Osteotech Inc 08/02/2022 [id number] / [id number] / Stpl Bone 2 Hl Lopro Top Ld Intchn Ti Implanted:Qty: 1 on 11/21/2019 by Grzegorz Mi MD at [facility] N/A: Spine Medtronic Sofamor Danek Inc [id number] / / Stpl Bone 2 Hl Lopro Top Ld Intchn Ti Implanted:Qty: 1 on 11/21/2019 by Grzegorz Mi MD at [facility] N/A: Spine Medtronic Sofamor Danek Inc [id number] / / Screw 5.5mm 35mm Spne Thor Ant Slf-Tap Implanted:Qty: 4 on 11/21/2019 by Grzegorz Mi MD at [facility] N/A: Spine Medtronic Sofamor Danek Inc [id number] / / 8cm Plate Implanted:Qty: 1 on 11/21/2019 by Grzegorz Mi MD at [facility] N/A: Spine Medtronic Sofamor Danek Spine [id number] / / Nut Lck Vntg Ant Thorlmbr Spne Ti Screw Implanted:Qty: 2 on 11/21/2019 by Grzegorz Mi MD at [facility] N/A: Spine Medtronic Sofamor Danek Inc [id number] / / 20mm E Stratosphere Cage Implanted:Qty: 1 on 11/21/2019 by Grzegorz Mi MD at [facility] N/A: Spine Medtronic Sofamor Danek Inc [id number] / / Insurance TNA MEDICARE ADV [employer]NA [employer] M[employer]UAL SELF PAY NO INSURANCE Member Subscriber Plan / Payer (Ef fective for All Dates) Name:April Almodovar Member ID:Not on file Relation to Subscriber:Self Name:April Almodovar Subscriber ID:Not on file Payer ID:Not on file Group ID:Not on file Type:Self Pay Address: [place], [place] Advance Directives Documents on File Type Date Recorded Patient Director Fixed Income Expl anation Adv Directive/Living Will/POA 12/04/2019 2:33 [...] 4:59 PM 10/31/2016 4:30 PM Care Teams Community Ambassador Relationship Specialty Start Date End Date Jaiden Sotelo MD [address] [address] PCP - General Family Medicine 10/01/16
--- OUTSIDE RECORDS SUMMARY | 2024-08-30 12:12 | XMS_ITS | Encounter Summary ---
Author Organization [facility] Health Address [address] [place] [address] Care Team Providers Care Leather Production Machine Operator Name Role Phone Jaiden Sotelo [...] documented as of this encounter Care Teams Leather Production Machine Operator Relationship Specialty Start Date End Date Jaiden Sotelo MD [address] [address] PCP - General Family Medicine 10/01/16 documented as of this encounter
--- OUTSIDE RECORDS SUMMARY | 2024-08-30 12:12 | XMS_ITS | Clinical Summary ---
Author Organization [facility] Address [address] [place] [address] Care Team Providers Care Accounting Reconciliation Clerk Name Role Phone Jaiden Sotelo MD Primary Care Provider [phone] Allergies No known active allergies Medications B [...] Td Vaccines ( 1 - Tdap) 01/20/1968 Pneumococcal Vaccine: 50+ Years (1 of 1 - PCV) 1999 Annual Medicare Wellness Visit 2014 Zoster Vaccines (3 of 3) 12/13/2018 019, 01/21/2014 COVID-19 Vaccine (4 - 2023-2 5 season) 2023 11/24/2020, 03/25/2020, 03/04/2020 RSV Immunization or 60+ Years (1 - [...] patient's age to complete this topic Insurance MEDICAID A[employer]NA [facility] Advance Directives * Full Code (Latest Code Status on File) Date Activated Date Inactivated Comments 08/08/2021 12:10 PM 08/09/2021 12:47 PM * Full Code Date Activated Date Inactivated Comments 06/18/2021 12:13 PM 06/19/2021 8:31 AM Care Teams Accounting Reconciliation Clerk Relationship Specialty Start Date End Date Jaiden Sotelo MD [address] [address] PCP - General FAMILY PRACTICE 06/18/21
--- OUTSIDE RECORDS SUMMARY | 2024-08-30 12:13 | XMS_ITS | Encounter Summary ---
Author Organization [facility] Address [address] [place] [address] Care Team Providers Care Neurology Technician Name Role Phone Jaiden Sotelo MD Primary Care Provider + Reason for Visit * Reason Onset Date Comments Appointment 05/11/2020 Encounter Details Date Type Department Care Team (Late st Contact Info) Description 05/11/2020 Telephone [facility] Urology [address] [place] [id number] Daphne Valera Appointment Social History Tobacco [...] Assessment Author No 11/30/2019 1:51 PM CDT Sa elis Carrillo, DEVELOPMENT DIRECTOR-BATTERY MECHANIC * Is person blind or have serious difficulty seeing? Answer Date of Assessment Author No 11/30/2019 1:51 PM CDT Lorena, Sa mantha, DEVELOPMENT DIRECTOR-BATTERY MECHANIC * Does person have serious difficulty walking/climbing stairs? Answer Date of Assessment Author Yes 11/30/2019 1:51 PM CDT Lorena, Sa mantha, DEVELOPMENT DIRECTOR-BATTERY MECHANIC * Does person have difficulty dressing/bathing? Answer Date of Assessment Author Yes 11/30/2019 1:51 PM CDT Lorena, Sa mantha, DEVELOPMENT DIRECTOR-BATTERY MECHANIC * Does person have difficulty doing errands alone? Answer Date of Assessment Author Yes 11/30/2019 1:51 PM CDT Lorena, Sa mantha, DEVELOPMENT DIRECTOR-BATTERY MECHANIC documented as of this encounter Mental Status * Does person have difficulty concentrating/remembering/making decisions? Answer Entry Date Author No 11/30/2019 1:51 PM CDT Lorena, Sa mantha, DEVELOPMENT DIRECTOR-BATTERY MECHANIC documented in this encounter Miscellaneous Notes * Telephone Encounter - Daphne Valera - 05/11/2020 10:20 AM CDT Left vm to get x-ray prior to appt. Left number to call back if any questions documented in this encounter Plan of Treatment Not on file documented as of this encounter Visit Diagnoses Not on filedocumented in this encounter Care Teams Neurology Technician Relationship Specialty Start Date End Date Jaiden Sotelo MD [address] [place] [address] PCP - General Family Medicine 10/01/16 documented as of this encounter
--- OUTSIDE RECORDS SUMMARY | 2024-08-30 12:13 | XMS_ITS | Referral Summary ---
Author Organization [facility] [address] Address [address] [place] [address] Care Team Providers Care Cutter Woodwind Reeds Name Role Phone Jaiden Sotelo MD Primary Care Prov ider Lasha Askew MD Unavailable [phone] Lasha Askew MD Unavailable [phone] Allergies Active Allergy Reactions Criticality Noted Date [...] 2 mo F/U with me 3 mo [facility] Dry eye syndrome of both eyes 10/15/2018 Assessment & Plan (10/15/2018 11:01 AM CDT): Retaine tears QID both eyes (OU) and SIDDHARTH at bedtime (QHS) Meibomian gland disease 10/15/2018 Assessment & Plan (10/15/2018 11:02 AM CDT): Warm compresses, digital massage Erectile dysfunction 02/02/2018 Overview (02/02/2018): Added automatically from request for surgery [id number] Primary open angle glaucoma (POAG) of left eye, severe stage 10/21/2017 Assessment & Plan (02/01/2019 2:13 PM DIRECTOR OF ESTATE): Reviewing UBM - unlikely that chafe is [...] on file Legal Sex Male 11:16 PM DIRECTOR OF ESTATE Gender Identity Not on file Sexual Orientation [...] 10:49 AM CDT Height 172.7 cm (5' 8) 12/02/2021 10:49 AM CDT Body Mass Index 26.91 12/02/2021 10:49 AM CDT Plan of Treatment Not on file Medical Devices Implanted Type Area Can Operator Device Identifier Shelf Expiration Date Model / Serial / Lot Coloplast Yash 91-9480sc Titan Lock-Out Inflatable Self Contain Fluid Fill Tube Standard Latex Free - [id number] Implanted:Qty: 1 on 03/22/2018 by Jarett Mittal MD at [facility] N/A: Penis Coloplast Yash 10/11/2022 [id number] / / [id number] Coloplast Yash [id number] Titan Coloplast Lock-Out Inflatable Self Contain Fluid Fill Valve Latex Free - [id number] Implanted:Qty: 1 on 03/22/2018 by Jarett Mittal MD at [facility] Left: Groin Coloplast Yash 11/01/2022 [id number] / / [id number] Coloplast Yash [id number] Pros 0d Penile Cyl Pump Set - [id number] Implanted:Qty: 1 on 03/22/2018 by Jarett Mittal MD at [facility] N/A: Penis Coloplast Yash 01/06/2023 [id number] / / [id number] Yash Angio-Seal Vip 6fr Closere Device [id number] - [id number] Implanted:Qty: 1 on 12/02/2021 at [facility] [employer] Yash 07/23/2022 [id number] / / [id number] Procedures Procedure Name Priority Date/Time Associated Diagnosis Comments CTA ABDOMINAL AORTA AND BILATERAL ILIOFEMORAL RUNOFF Schedule Routine, Read Routine (OP Routine) 11/06/2021 2:14 PM CDT PAD (peripheral artery disease) EGFR Routine 03/11/2018 11:28 AM DIRECTOR OF ESTATE Erectile dysfunction due to diseases classified elsewhere HEMOGLOBIN A1C Routine 03/04/2018 12:28 PM DIRECTOR OF ESTATE Preop testing POCT LIPID PANEL Routine 06/30/2017 [...] to ankle with multilevel tandem occlusions of SERVICE INSPECTOR and SONIDO. Extensive calcific atherosclerosis of tibial [...] to ankle with multilevel tandem occlusions of SERVICE INSPECTOR and SONIDO. Extensive calcific atherosclerosis of tibial vessels. Dictated by: Rene Jaimes M.D. The radiology attending physician has personally reviewed this study, and had reviewed and/or edited this written report and agrees with it. Electronically signed by: Taz Pak M.D. Lasha Askew MD IMG CT PROCEDURES Final Result * eGFR (03/11/2018 11:28 AM DIRECTOR OF ESTATE) eGFR 50 mL/min/1.7 3 m2 ERYN Comment: Interpretive Data Reference Interval Normal >/= 90 mL/min/1.73m2 Mildly decreased* 60 - 89 mL/min/1.73m2 Mildly to moderately decreased 45 - 59 mL/min/1.73m2 Moderately to severely decreased 30 - 44 mL/min/1.73m2 Severely decreased 15 - 29 mL/min/1.73m2 Kidney Failure < 15 mL/min/1.73m2 *Relative to young adult level If -[place] multiply value by 1.16. Estimated glomerular filtration [...] 2015. Blood specimen (specimen) 03/11/2018 11:28 AM DIRECTOR OF ESTATE 03/11/2018 11:34 AM DIRECTOR OF ESTATE Haleigh CERNA - 03/11/2018 11:50 AM DIRECTOR OF ESTATE Jarett Mittal MD LAB BLOOD ORDERABLES Fi nal Result ERYN [address] [facility] [place] [address] * (ABNORMAL) Hemoglobin A1c (03/04/2018 12:28 PM DIRECTOR OF ESTATE) Hgb A1C 5.9(H) 4.0 - 5.6 % ERYN BUSCH Estimated Average Glucose 123 mg/dL ERYN BUSCH Comment: The ADA recommends reporting an estimated Average Glucose (eAG) with all Hemoglobin A1c results using the equation derived from a study of 507 normal and diabetic adults. Minority populations were underrepresented and children were not included. (Diabetes Care 31:8955-0633, 2008). The eAG is not equivalent to a fasting glucose. Blood specimen (specimen) 03/04/2018 12:28 PM DIRECTOR OF ESTATE 03/04/2018 1:48 PM DIRECTOR OF ESTATE Haleigh CERNA - 03/04/2018 2:13 PM DIRECTOR OF ESTATE us Jarett Mittal MD LAB BLOOD ORDERABLES Fi nal Result ERYN [address] [facility] [place] [address] * POCT lipid panel (06/30/2017 4:07 PM CDT) Cholesterol, POC 217 mg/dL Triglycerides, POC >650 mg/dL Blood specimen (specimen) 06/30/2017 4:07 PM CDT Farhat De La Cruz MD POINT OF CARE TEST ORDER JORDYN Final Result from Last 3 Months or Most Recently Relevant to Health Maintenance Insurance [facility] IDPA AETNA MEDICARE GOLD AETNA MEDICARE GOLD IDPA Advance Directives For more information, please contact: [phone] * Full Code (Latest Code Status on File) Date Activated Date Inactivated Comments 12/02/2021 10:48 AM 12/03/2021 5:04 AM * Full Code Date Activated Date Inactivated Comments 03/22/2018 1:47 PM 03/23/2018 8:17 PM Care Teams Cutter Woodwind Reeds Relationship Specialty Start Date End Date Jaiden Sotelo MD [address] [place] [address] PCP - General 06/11/16 Lasha Askew MD [address] [address] Consulting Physician Vascular & Interven Rad 12/04/21 Lasha Askew MD [address] [address] Consulting Physician Vascular & Interven Rad 01/10/22
--- OUTSIDE RECORDS SUMMARY | 2024-08-30 12:13 | XMS_ITS | Clinical Summary ---
Author Organization [facility] [address] Address [address] [place] [address] Care Team Providers Care Pizza Hut Assistant Name Role Phone Jaiden Sotelo MD Primary Care Prov ider Lasha Askew MD Unavailable [phone] Lasha Askew MD Unavailable [phone] Allergies Active Allergy Reactions Criticality Noted Date [...] 2 mo F/U with me 3 mo [facility] Dry eye syndrome of both eyes 10/15/2018 Assessment & Plan (10/15/2018 11:01 AM CDT): Retaine tears QID both eyes (OU) and SIDDHARTH at bedtime (QHS) Meibomian gland disease 10/15/2018 Assessment & Plan (10/15/2018 11:02 AM CDT): Warm compresses, digital massage Erectile dysfunction 02/02/2018 Overview (02/02/2018): Added automatically from request for surgery [id number] Primary open angle glaucoma (POAG) of left eye, severe stage 10/21/2017 Assessment & Plan (02/01/2019 2:13 PM INSTRUMENTATION AND CONTROLS DESIGNER): Reviewing UBM - unlikely that chafe is [...] amount of preservative CPMEDS for now Fu Lizetybedison Pseudophakia of both eyes 10/21/2017 Assessment & [...] disease) Type 2 diabetes mellitus (HCC) Neuropathy Arthritis ED (erectile dysfunction) Family History Medical [...] on file Legal Sex Male 11:16 PM INSTRUMENTATION AND CONTROLS DESIGNER Gender Identity Not on file Sexual Orientation [...] Visit 65+ 2014 Lipid Panel 06/30/2018 06/30/2017 Zoster Vaccine (3 of 3) 12/13/2018 10/18/2018, 01/21 Hemoglobin A1C 12/24/2018 06/23/2018, 03/04/2018 eGFR 03/11/2019 03/11/2018, 03/04/2018 Dilated Eye Exam 04/06/2020 04/06/2019, 11/2018, 10/21/2017 Fall Risk Assessment 12/02/2022 12/02/2021 Influenza Vaccine (Season Ended) 2024 11/16/2019, 10/15/2018, 02/10/2012 Abdominal Aortic Aneurysm (A AA) Screen Completed 11/06/2021 Medical Devices Implanted Type Area Back Strip Machine Operator Device Identifier Shelf Expiration Date Model / Serial / Lot Coloplast Yash [id number] Titan Lock-Out Inflatable Self Contain Fluid Fill Tube Standard Latex Free - [id number] Implanted:Qty: 1 on 03/22/2018 by Jarett Mittal MD at [facility] N/A: Penis Coloplast Yash 10/11/2022 [id number] / / [id number] Coloplast Yash [id number] Titan Coloplast Lock-Out Inflatable Self Contain Fluid Fill Valve Latex Free - [id number] Implanted:Qty: 1 on 03/22/2018 by Jarett Mittal MD at [facility] Left: Groin Coloplast Yash 11/01/2022 [id number] / / [id number] Coloplast Yash [id number] Pros 0d Penile Cyl Pump Set - [id number] Implanted:Qty: 1 on 03/22/2018 by Jarett Mittal MD at [facility] N/A: Penis Coloplast Yash 01/06/2023 [id number] / / [id number] [employer] Angio-Seal Vip 6fr Closere Device [id number] - [id number] Implanted:Qty: 1 on 12/02/2021 at [facility] [employer] 07/23/2022 [id number] / / [id number] Procedures Procedure Name Priority Date/Time Associated Diagnosis Comments CTA ABDOMINAL AORTA AND BILATERAL ILIOFEMORAL RUNOFF Schedule Routine, Read Routine (OP Routine) 11/06/2021 2:14 PM CDT PAD (peripheral artery disease) EGFR Routine 03/11/2018 11:28 AM INSTRUMENTATION AND CONTROLS DESIGNER Erectile dysfunction due to diseases classified elsewhere HEMOGLOBIN A1C Routine 03/04/2018 12:28 PM INSTRUMENTATION AND CONTROLS DESIGNER Preop testing POCT LIPID PANEL Routine 06/30/2017 [...] to ankle with multilevel tandem occlusions of ELDERLY COMPANION and SONIDO. Extensive calcific atherosclerosis of tibial [...] to ankle with multilevel tandem occlusions of ELDERLY COMPANION and SONIDO. Extensive calcific atherosclerosis of tibial vessels. Dictated by: Rene Jaimes M.D. The radiology attending physician has personally reviewed this study, and had reviewed and/or edited this written report and agrees with it. Electronically signed by: Taz Pak M.D. Lasha Askew MD IMG CT PROCEDURES Final Result * eGFR (03/11/2018 11:28 AM INSTRUMENTATION AND CONTROLS DESIGNER) eGFR 50 mL/min/1.7 3 m2 ERYN BUSCH Comment: Interpretive Data Reference Interval Normal >/= 90 mL/min/1.73m2 Mildly decreased* 60 - 89 mL/min/1.73m2 Mildly to moderately decreased 45 - 59 mL/min/1.73m2 Moderately to severely decreased 30 - 44 mL/min/1.73m2 Severely decreased 15 - 29 mL/min/1.73m2 Kidney Failure < 15 mL/min/1.73m2 *Relative to young adult level If -Ethiopian multiply value by 1.16. Estimated glomerular filtration [...] 2015. Blood specimen (specimen) 03/11/2018 11:28 AM INSTRUMENTATION AND CONTROLS DESIGNER 03/11/2018 11:34 AM INSTRUMENTATION AND CONTROLS DESIGNER Narrative ERYN - 03/11/2018 11:50 AM INSTRUMENTATION AND CONTROLS DESIGNER Jarett Mittal MD LAB BLOOD ORDERABLES Fi nal Result Performing Organization Address [facility] de Phone Number [facility] [address] [place] [address] * (ABNORMAL) Hemoglobin A1c (03/04/2018 12:28 PM INSTRUMENTATION AND CONTROLS DESIGNER) Hgb A1C 5.9(H) 4.0 - 5.6 % ERYN Estimated Average Glucose 123 mg/dL ERYN Comment: The ADA recommends reporting an estimated Average Glucose (eAG) with all Hemoglobin A1c results using the equation derived from a study of 507 normal and diabetic adults. Minority populations were underrepresented and children were not included. (Diabetes Care 31:5946-3236, 2008). The eAG is not equivalent to a fasting glucose. Blood specimen (specimen) 03/04/2018 12:28 PM INSTRUMENTATION AND CONTROLS DESIGNER 03/04/2018 1:48 PM INSTRUMENTATION AND CONTROLS DESIGNER Narrative ERYN - 03/04/2018 2:13 PM INSTRUMENTATION AND CONTROLS DESIGNER Jarett Mittal MD LAB BLOOD ORDERABLES Fi nal Result Performing Organization Address [facility] de Phone Number [facility] [address] [place] [address] * POCT lipid panel (06/30/2017 4:07 PM CDT) Cholesterol, POC 217 mg/dL Triglycerides, POC >650 mg/dL Blood specimen (specimen) 06/30/2017 4:07 PM CDT Farhat De La Cruz MD POINT OF CARE TEST ORDER JORDYN Final Result from Last 3 Months or Most Recently Relevant to Health Maintenance Insurance [facility] AETNA MEDICARE GOLD AETNA MEDICARE GOLD IDPA Advance Directives For more information, please contact: [phone] * Full Code (Latest Code Status on File) Date Activated Date Inactivated Comments 12/02/2021 10:48 AM 12/03/2021 5:04 AM * Full Code Date Activated Date Inactivated Comments 03/22/2018 1:47 PM 03/23/2018 8:17 PM Care Teams [employer] Assistant Relationship Specialty Start Date End Date Jaiden Sotelo MD [address] [place] [address] PCP - General 06/11/16 Lasha Askew MD [address] [facility] [address] [place] [address] Consulting Physician Vascular & Interven Rad 12/04/21 Lasha Askew MD [address] [facility] [address] [place] [address] Consulting Physician Vascular & Interven Rad 01/10/22
[2024-08-30 12:46] LABS: Anion Gap 8 mmol/L (4-12); Blood Urea Nitrogen 24 mg/dL (9-20); Calcium 9.3 mg/dL (8.4-10.2); Carbon Dioxide 28 mmol/L (22-30); Chloride 104 mmol/L (98-107); Estimated Glomerular Filt Rate 47; Glucose 150 mg/dL (65-110); Potassium 4.5 mmol/L (3.4-5.0); Sodium 140 mmol/L (137-145)
[2024-08-30 13:01] LABS: Hematocrit 37.9 % (42.0-52.0); Hemoglobin 12.3 g/dL (14.0-18.0); Immature Granulocyte Percent A 0.2 % (0-0.5); Lymphocytes Absolute Auto 1.50 K/mm3 (0.9-3.2); Mean Corpuscular HGB Conc 32.5 g/dl (32-36); Mean Corpuscular Hemoglobin 28.6 pg (26-34); Mean Corpuscular Volume 88.1 fl (80-100); Nucleated Red Blood Cells Absolute Auto 0.000 K/mm3 (0.0-0.012); Nucleated Red Blood Cells Perc 0.0 % (0.0-0.2); Platelet Count Result 225 k/mm3 (150-375); Red Blood Count 4.30 M/mm3 (4.6-6.20); White Blood Count 6.3 K/mm3 (4.5-10.0)
== END 2024-08-30 12:10 | disposition home or self-care (01) ==
LOC: HOME HLTH 12:10
PROVIDERS: PCP Family Medicine Adolescent Medicine; Visit Provider Nurse Practitioner Acute Care
DX: N39.0 Urinary tract infection, site not specified (principal); R78.81 Bacteremia
CPT/HCPCS: 80048; 85025

== ENCOUNTER 2024-09-09 09:26 | Outpatient (CLI) | payer MEDICARE, MEDICAID, SELFPAY ==
--- NOTE | ~2024-09-09 | MR_ITS ---
MRI of the brain Clinical History: Contusion Technique: Axial and sagittal T1-weighted images were acquired. These were followed by axial T2-weigh faheem, diffusion weighted, gradient, and FLAIR images. Following intravenous administration of 18 cc Mu ltiHance gadolinium, T1-weighted fat-sat imaging was performed in the axial and coronal planes. Findings: No acute infarct, intracranial hemorrhage or mass lesion seen. There is mild to moderate ch ronic microvascular ischemic change in the periventricular white matter. Ventricles and subarachnoid spaces are dilated. Orbits are unremarkable. Paranasal sinuses and mastoi d air cells are clear. Major intracranial flow voids are intact. Sagittal midline structures are intact. No abnormal postcontrast enhancement identified. IMPRESSION: No acute abnormality. Mild to moderate chronic microvascular ischemic change and mild generalized atrophy. Reviewed, dictated and finalized at [facility]. IMPRESSION: No acute abnormality. Mild to moderate chronic microvascular ischemic change and mild generalized atr ophy.
--- NOTE | ~2024-09-09 | MR_ITS ---
MRI of the cervical spine Clinical History: Anesthesia of skin Technique: Axial T2-weighted and gradient images, and sagittal T1-weighted, T2-weighted, and STIR emil ges were acquired. Findings: No acute fracture seen. There is 5 mm anterolisthesis of C4 over C5. No suspicious bone mar row signal abnormality seen. At C2-C3, there is mild disc osteophyte complex and bilateral facet arthropathy. No spinal canal sten osis or cord compression. Neural foramina are intact. At C3-C4, there is moderate to advanced degenerative disc narrowing. There is disc osteophyte complex with moderate canal stenosis and mild cord compression. There is bilateral facet arthropathy with ad vanced bilateral neural foraminal narrowing. At C4-C5, there is disc osteophyte complex and advanced facet arthropathy. There is bilateral neural foraminal narrowing. There is severe spinal canal stenosis and moderate to advanced cord compression. At C5-C6, there is severe degenerative disc narrowing with minimal disc bulge. Probable mild to moder ate bilateral neural foraminal narrowing. No canal stenosis or cord compression. At C6-C7, there is moderate degenerative disc narrowing. There is diffuse disc osteophyte complex wit h no mónica canal stenosis or cord compression. There is bilateral moderate to severe neural foraminal narrowing. No abnormal signal evident in the spinal cord. Paravertebral soft tissues are unremarkable. Impression: Severe degenerative spondylosis at C3-C4 and C4-C5, as detailed above, with canal stenosis, cord comp ression, and neural foraminal narrowing. 5 mm anterolisthesis of C4 over C5. Additional degenerative changes, as above. Reviewed, dictated and finalized at [facility]. Impression: Severe degenerative spondylosis at C3-C4 and C4-C5, as detailed above, with can al stenosis, cord compression, and neural foraminal narrowing. 5 mm anterolisthesis of C4 over C5. Additional degenerative changes, as above.
== END 2024-09-09 09:27 | disposition home or self-care (01) ==
LOC: MICIMG 09:28
PROVIDERS: PCP Family Medicine Adolescent Medicine; Visit Provider Nurse Practitioner Adult Health
DX: M47.812 Spondylosis without myelopathy or radiculopathy, cervical region (principal); M48.02 Spinal stenosis, cervical region; M43.12 Spondylolisthesis, cervical region; M46.92 Unspecified inflammatory spondylopathy, cervical region; G95.20 Unspecified cord compression; G31.89 Other specified degenerative diseases of nervous system; S00.93XA Contusion of unspecified part of head, initial encounter; X58.XXXA Exposure to other specified factors, initial encounter; I67.82 Cerebral ischemia; R20.0 Anesthesia of skin
CPT/HCPCS: 70553; 72141; A9577

== ENCOUNTER 2024-12-21 14:13 | Outpatient (CLI) | payer MEDICARE, MEDICAID, SELFPAY ==
--- OUTSIDE RECORDS SUMMARY | 2006-12-31 03:48 | XMS_ITS | Continuity of Care Document ---
Author Organization [facility] [place] Address [address] [place] [address] [address] [place] [address] Phone Care Team Providers Care Typist Name Role Phone [facility] Unavailable Unavail able James Cee Unavailable Unavailable Procedures Procedure Date Progressive Lens, Plastic Progressive Lens, Plastic Frames Deluxe Tax - Medical Visual Field Examination(s) Eye Exam, New Patient Refraction Advance Directives Directive Yes / No Effective Date File Name No Information Encounters Encounter Description Practice Location Reason(s) For Visit Diagnoses Date Provider Providers Copied on Encounter [facility], [address] [place] [address] [address], [place], [place], [id number], [place] tel:[phone] [facility] No Information 8-200 7 [facility] . [address], [id number], [place]. tel:[phone] Referring Provider: Juancarlos Vargas, [address] [place] [address] [address], [place], [address]. tel:[phone] sulting Provider: James Cee, [address] [place] [address], [place], [address]. tel:[phone] [facility], [id number] [place] [address] [address], [place], [place], [id number], [place] tel:[phone] [facility] No Information 0-200 7 [facility] . [address], [address], [place], [place], [id number], . tel:[phone] Referring Provider: Juancarlos Vargas, [address] [place] [address] [address], [place], [address]. tel:[phone] Provider: James Cee, [address] [place] [address], [place], [address]. tel:[phone] [facility], [address] [place], [place] [address] [address], [place], [place], [id number], tel:[phone] [facility] No Information May-3 0-200 7 Matamoros OD Juancarlos. [address] [place] [address] , [facility] [address], [place], [address], [place]. tel:[phone] Referring Provider: Juancarlos Vargas, [address] [place] [address] [address], [place], [place], [facility]. tel:[phone] [facility], [address] [place], [place] [address] [address], [place], [place], [id number], tel:[phone] [facility] No Information May-0 9-200 7 [place]os OD Juancarlos. [address] [place] [address] , [address], [place], [address], [place]. tel:[phone] Family History Family Member Type Diagnosis Age At Onset No Information Payers Payer name Insurance type Covered republican ID Authoriza tion(s) No Information Social History Type Description Quantity Date Captured Comments Sex Male Smoking Status No Information Chief Complaint And Reason For Visit No Information Reason For Referral Reason For Referral No Information History Of Present Illness Encounter Date Complaint History Of Prese nt Illness No Information Functional Status Date Functional Assessmen t No Information Instructions Date Instruction Additional Infor mation No Information Assessments Type Assessment Date No Information Patient Care Teams Name Effective Dates (start - stop) Status Members No Information
--- OUTSIDE RECORDS SUMMARY | 2020-03-30 12:28 | XMS_ITS | Encounter Summary ---
Author Organization [facility] Address [address] [place] [address] Care Team Providers Care Linux Systems Engineer Name Role Phone Jaiden Sotelo MD Primary Care Provider + Encounter Details Date Type Department Care Team (Latest Contact Info) Description 03/30/2020 11:28 AM WIRE WEB WORKER Hospital Encounter [address] [address] Iris Wu MD [address] [place] [address] [address] [place] [address] [employer] Social History Tobacco Use Types Packs/Day Years Used Date Smoking Tobacco: Never Smokeless Tobacco: Never Alcohol Use Standard Drinks/Week Comments Not Currently 0 (1 standard drink = 0.6 oz pur e alcohol) AUDIT-C Answer Date Recorded Frequency of Alcohol Consumption Never 02/14/2019 Average Number of Drinks Not on file 019 Frequency of Binge Drinking Not on file 01/24 Sex and Gender Information Value Date Recorded Sex Assigned at Not on file Legal Sex Male 12:53 PM CDT Gender Identity Not on file Sexual Orientation Not on file Occupation Industry Job Start Date Job End Date NOT EMPLOYED Not on file Not on file Not on file COVID-19 Exposure Response Date Recorded In the last 10 days, have jarocho sandoval been in contact with someone who was confirmed or suspected to have Coronavirus/COVID-19? No / Unsure 09/24/2021 10:14 AM CDT documented as of this encounter Functional Status * Is person deaf or have serious hearing difficulty? Answer Date of Assessment Author No 11/30/2019 1:51 PM CDT Lorena, Sa mantha, WIDE PIECE GOODS INSPECTOR-TRAIN SYSTEM OPERATOR * Is person blind or have serious difficulty seeing? Answer Date of Assessment Author No 11/30/2019 1:51 PM CDT Lorena, Sa mantha, WIDE PIECE GOODS INSPECTOR-TRAIN SYSTEM OPERATOR * Does person have serious difficulty walking/climbing stairs? Answer Date of Assessment Author Yes 11/30/2019 1:51 PM CDT Lorena, Sa mantha, WIDE PIECE GOODS INSPECTOR-TRAIN SYSTEM OPERATOR * Does person have difficulty dressing/bathing? Answer Date of Assessment Author Yes 11/30/2019 1:51 PM CDT Lorena Sa mantha, WIDE PIECE GOODS INSPECTOR-TRAIN SYSTEM OPERATOR * Does person have difficulty doing errands alone? Answer Date of Assessment Author Yes 11/30/2019 1:51 PM CDT Lorena Sa mantha, WIDE PIECE GOODS INSPECTOR-TRAIN SYSTEM OPERATOR documented as of this encounter Mental Status * Does person have difficulty concentrating/remembering/making decisions? Answer Entry Date Author No 11/30/2019 1:51 PM CDT Lorena, Sa mantsteven, WIDE PIECE GOODS INSPECTOR-TRAIN SYSTEM OPERATOR documented in this encounter Plan of Treatment Not on file documented as of this encounter Visit Diagnoses Not on filedocumented in this encounter Care Teams Linux Systems Engineer Relationship Specialty Start Date End Date Jaiden Sotelo MD [address] [place] [id number] PCP - General Family Medicine 10/01/16 documented as of this encounter
[2024-12-21 15:09] LABS: Parathyroid Intact 52.0 pg/mL (14.5-75.2)
[2024-12-21 15:15] LABS: Albumin Level 4.4 g/dL (3.5-5.1); Anion Gap 13 mmol/L (4-12); Blood Urea Nitrogen 34 mg/dL (9-20); Calcium 8.8 mg/dL (8.4-10.2); Carbon Dioxide 23 mmol/L (22-30); Chloride 102 mmol/L (98-107); Estimated Glomerular Filt Rate 34; Glucose 171 mg/dL (65-110); Potassium 4.3 mmol/L (3.4-5.0); Sodium 138 mmol/L (137-145)
--- OUTSIDE RECORDS SUMMARY | 2024-12-21 16:03 | XMS_ITS | Encounter Summary ---
Author Organization [facility] Health Address [address] [place] [address] Care Team Providers Care Delinquency Counselor Name Role Phone Jaiden Sotelo MD Primary Care Provider + Encounter Details Date Type Department Care Team (Late st Contact Info) Description 12/11/2016 [facility] Outpatient Visit EXTERNAL NON-[facility] DEPT Unknown, Provider [...] of Assessment Author Yes 10/29/2016 5:11 PM Maricel Hawkins RN * Does person have difficulty dressing/bathing? [...] documented as of this encounter Care Teams Delinquency Counselor Relationship Specialty Start Date End Date Jaiden Sotelo MD [address] [address] PCP - General Family Medicine 10/01/16 documented as of this encounter
--- OUTSIDE RECORDS SUMMARY | 2024-12-21 16:03 | XMS_ITS | Encounter Summary ---
Author Organization [facility] [address] [address] Care Team Providers Care Vb Net Programmer Name Role Phone Jaiden Sotelo MD Primary Care Provider + Reason for Visit * Reason Onset Date Comments Appointment 05/11/2020 Encounter Details Date Type Department Care Team (Late st Contact Info) Description 05/11/2020 Telephone [facility] [address] [place] [id number] Daphne Valera Appointment Social History Tobacco [...] 11/30/2019 1:51 PM CDT Sa elis Carrillo, PAID SEARCH MARKETING ANALYST-WATER REGISTRAR * Is person blind or have serious difficulty seeing? Answer Date of Assessment Author No 11/30/2019 1:51 PM CDT Lorena, Sa mantha, PAID SEARCH MARKETING ANALYST-WATER REGISTRAR * Does person have serious difficulty walking/climbing stairs? Answer Date of Assessment Author Yes 11/30/2019 1:51 PM CDT Lorena, Sa mantha, PAID SEARCH MARKETING ANALYST-WATER REGISTRAR * Does person have difficulty dressing/bathing? Answer Date of Assessment Author Yes 11/30/2019 1:51 PM CDT Lorena, Sa mantha, PAID SEARCH MARKETING ANALYST-WATER REGISTRAR * Does person have difficulty doing errands alone? Answer Date of Assessment Author Yes 11/30/2019 1:51 PM CDT Lorena, Sa mantha, PAID SEARCH MARKETING ANALYST-WATER REGISTRAR documented as of this encounter Mental Status * Does person have difficulty concentrating/remembering/making decisions? Answer Entry Date Author No 11/30/2019 1:51 PM CDT Lorena, Sa mantha, PAID SEARCH MARKETING ANALYST-WATER REGISTRAR documented in this encounter Miscellaneous Notes * Telephone Encounter - Daphne Valera - 05/11/2020 10:20 AM CDT Left vm to get x-ray prior to appt. Left number to call back if any questions documented in this encounter Plan of Treatment Not on file documented as of this encounter Visit Diagnoses Not on filedocumented in this encounter Care Teams Vb Net Programmer Relationship Specialty Start Date End Date Jaiden Sotelo MD [address] [address] PCP - General Family Medicine 10/01/16 documented as of this encounter
--- OUTSIDE RECORDS SUMMARY | 2024-12-21 16:03 | XMS_ITS | Clinical Summary ---
Author Organization [facility] [address] Address [address] [place] [address] Care Team Providers Care Garbage Truck Driver Name Role Phone Jaiden Sotelo MD Primary Care Prov ider Lasha Askew MD Unavailable [phone] Lasha Askew MD Unavailable [phone] Allergies Active Allergy Reactions Criticality Noted Date [...] 2 mo F/U with me [address] [facility] Dry eye syndrome of both eyes 10/15/2018 Assessment & Plan (10/15/2018 11:01 AM CDT): Retaine tears QID both eyes (OU) and SIDDHARTH at bedtime (QHS) Meibomian gland disease 10/15/2018 Assessment & Plan (10/15/2018 11:02 AM CDT): Warm compresses, digital massage Erectile dysfunction 02/02/2018 Overview (02/02/2018): Added automatically from request for surgery [id number] Primary open angle glaucoma (POAG) of left eye, severe stage 10/21/2017 Assessment & Plan (02/01/2019 2:13 PM INDUSTRIAL MECHANIC): Reviewing UBM - unlikely that chafe is [...] (gastroesophageal reflux disease) Type 2 diabetes mellitus Neuropathy Arthritis ED (erectile dysfunction) Family History [...] on file Legal Sex Male 11:16 PM INDUSTRIAL MECHANIC Gender Identity Not on file Sexual Orientation [...] Risk Assessment 12/02/2022 12/02/2021 Influenza Vaccine (#1) 2024 , 10/15/2018, 02/10/2012 Abdominal Aortic Aneurysm (A AA) Screen Completed 11/06/2021 Medical Devices Implanted Type Area Chucking Lathe Operator Device Identifier Shelf Expiration Date Model / Serial / Lot Coloplast Yash [id number] Titan Lock-Out Inflatable Self Contain Fluid Fill Tube Standard Latex Free - [id number] Implanted:Qty: 1 on 03/22/2018 by Jarett Mittal MD at [facility] N/A: Penis Coloplast Yash 10/11/2022 [id number] / / [id number] Coloplast Yash [id number] Titan Coloplast Lock-Out Inflatable Self Contain Fluid Fill Valve Latex Free - [id number] Implanted:Qty: 1 on 03/22/2018 by Jarett Mittal MD at [facility] Left: Groin Coloplast Yash 11/01/2022 [id number] / / [id number] Coloplast Yash [id number] 0d Penile Cyl Pump Set - [id number] Implanted:Qty: 1 on 03/22/2018 by Jarett Mittal MD at [facility] N/A: Penis Coloplast Yash 01/06/2023 [id number] / / [id number] [employer] Angio-Seal Vip 6fr Closere Device [id number] - [id number] Implanted:Qty: 1 on 12/02/2021 at [facility] [employer] 07/23/2022 [id number] / / [id number] Procedures Procedure Name Priority Date/Time Associated Diagnosis Comments CTA ABDOMINAL AORTA AND BILATERAL ILIOFEMORAL RUNOFF Schedule Routine, Read Routine (OP Routine) 11/06/2021 2:14 PM CDT PAD (peripheral artery disease) EGFR Routine 03/11/2018 11:28 AM INDUSTRIAL MECHANIC Erectile dysfunction due to diseases classified elsewhere HEMOGLOBIN A1C Routine 03/04/2018 12:28 PM INDUSTRIAL MECHANIC Preop testing POCT LIPID PANEL Routine 06/30/2017 [...] to ankle with multilevel tandem occlusions of SINK MAKER and SONIDO. Extensive calcific atherosclerosis of tibial [...] to ankle with multilevel tandem occlusions of SINK MAKER and SONIDO. Extensive calcific atherosclerosis of tibial vessels. Dictated by: Rene Jaimes M.D. The radiology attending physician has personally reviewed this study, and had reviewed and/or edited this written report and agrees with it. Electronically signed by: Taz Pak M.D. us Lasha Askew MD IMG CT PROCEDURES Final Result * eGFR (03/11/2018 11:28 AM INDUSTRIAL MECHANIC) eGFR 50 mL/min/1.7 3 m2 ERYN BUSCH Comment: Interpretive Data Reference Interval Normal >/= 90 mL/min/1.73m2 Mildly decreased* 60 - 89 mL/min/1.73m2 Mildly to moderately decreased 45 - 59 mL/min/1.73m2 Moderately to severely decreased 30 - 44 mL/min/1.73m2 Severely decreased 15 - 29 mL/min/1.73m2 Kidney Failure < 15 mL/min/1.73m2 *Relative to young adult level If -Gambian multiply value by 1.16. Estimated glomerular filtration [...] 2015. Blood specimen (specimen) 03/11/2018 11:28 AM INDUSTRIAL MECHANIC 03/11/2018 11:34 AM INDUSTRIAL MECHANIC Narrative ERYN - 03/11/2018 11:50 AM INDUSTRIAL MECHANIC Jarett Mittal MD LAB BLOOD ORDERABLES Fi nal Result Performing Organization Address [facility] de Phone Number ERYN [id number] [place] [address] * (ABNORMAL) Hemoglobin A1c (03/04/2018 12:28 PM INDUSTRIAL MECHANIC) Hgb A1C 5.9(H) 4.0 - 5.6 % ERYN Estimated Average Glucose 123 mg/dL ERYN Comment: The ADA recommends reporting an estimated Average Glucose (eAG) with all Hemoglobin A1c results using the equation derived from a study of 507 normal and diabetic adults. Minority populations were underrepresented and children were not included. (Diabetes Care 31:4244-4506, 2008). The eAG is not equivalent to a fasting glucose. Blood specimen (specimen) 03/04/2018 12:28 PM INDUSTRIAL MECHANIC 03/04/2018 1:48 PM INDUSTRIAL MECHANIC Narrative ERYN - 03/04/2018 2:13 PM INDUSTRIAL MECHANIC Jarett Mittal MD LAB BLOOD ORDERABLES Fi nal Result Performing Organization Address [facility] de Phone Number ERYN [phone] [place] [address] * POCT lipid panel (06/30/2017 4:07 PM CDT) Cholesterol, POC 217 mg/dL Triglycerides, POC >650 mg/dL Blood specimen (specimen) 06/30/2017 4:07 PM CDT Farhat De La Cruz MD POINT OF CARE TEST ORDER JORDYN Final Result from Last 3 Months or Most Recently Relevant to Health Maintenance Insurance [facility] AETNA MEDICARE GOLD AETNA MEDICARE GOLD IDPA Advance Directives For more information, please contact: [phone] * Full Code (Latest Code Status on File) Date Activated Date Inactivated Comments 12/02/2021 10:48 AM 12/03/2021 5:04 AM * Full Code Date Activated Date Inactivated Comments 03/22/2018 1:47 PM 03/23/2018 8:17 PM Care Teams Garbage Truck Driver Relationship Specialty Start Date End Date Jaiden Sotelo MD PCP - General 06/11/16 Lasha Askew MD [id number] [place] [address] Consulting Physician Vascular & Interven Rad 12/04/21 Lasha Askew MD [id number] [place] [address] Consulting Physician Vascular & Interven Rad 01/10/22
--- OUTSIDE RECORDS SUMMARY | 2024-12-21 16:03 | XMS_ITS | Encounter Summary ---
Author Organization [facility] Address [address] [place] [address] Care Team Providers Care Library Circulation Clerk Name Role Phone Jaiden Sotelo MD Primary Care Provider + Encounter Details Date Type Department Care Team (Late st Contact Info) Description 08/16/2018 [facility] Outpatient Visit EXTERNAL NON-[facility] DEPT Unknown, Provider [...] documented as of this encounter Care Teams Library Circulation Clerk Relationship Specialty Start Date End Date Jaiden Sotelo MD [address] [address] PCP - General Family Medicine 10/01/16 documented as of this encounter
--- OUTSIDE RECORDS SUMMARY | 2024-12-21 16:03 | XMS_ITS | Clinical Summary ---
Author Organization [facility] Address [address] [place] [address] Care Team Providers Care Cellophaner Name Role Phone Unavailable Primary Care Provider [...] day. This was being given bid at [facility] but changed to nightly while in [...] Comments Blood Pressure 115/72 04/18/2020 8:32 AM LOGISTICS CENTER MANAGER Pulse 74 04/18/2020 8:32 AM LOGISTICS CENTER MANAGER Temperature 36.4 C (97.6 F) 04/18/2020 8:32 AM LOGISTICS CENTER MANAGER Respiratory Rate 18 04/18/2020 8:32 AM LOGISTICS CENTER MANAGER Oxygen Saturation 97% 04/18/2020 8:32 AM LOGISTICS CENTER MANAGER Inhaled Oxygen Concentration - - Weight 61.2 kg (135 lb) 04/08/2020 7:36 PM LOGISTICS CENTER MANAGER Height 180.3 cm (5' 11) 04/08/2020 7:36 PM LOGISTICS CENTER MANAGER Body Mass Index 18.83 04/08/2020 7:36 PM LOGISTICS CENTER MANAGER Plan of Treatment Health Maintenance Due Date Last Done Comments CT Colonography 1949 Colonoscopy 1949 Colorectal Cancer Screening 1949 FIT-DNA (Cologuard) 1949 FIT 1949 FOBT 1949 Hemoglobin A1C 1949 Sigmoidoscopy 1949 Annual Visit Topic 1950 Urine Microalbumin 1959 Hepatitis C Screening 1967 DTaP/Tdap/Td Vaccines (1 - Tdap) 01/20/1968 Pneumococcal Vaccine: 65+ Years (1 of 2 - PCV) 1999 Ophthalmology Exam 04/06/2021 04/06/2019, 1 04/04/2018, 01/14/2019, Additional history exists HIB Vaccines Aged Out No longer eligi ble based on patient's age to complete this topic HPV Vaccines Aged Out No longer eligi ble based on patient's age to complete this topic Hepatitis A Vaccines Aged Out No long er eligible based on patient's age to complete this topic Hepatitis B Vaccines Aged Out No long er eligible based on patient's age to complete this topic IPV Vaccines Aged Out No longer eligi ble based on patient's age to complete this topic Meningococcal Vaccine Aged Out No gurvinder kamala eligible based on patient's age to complete this topic Advance Directives * Full Resuscitation (Latest Code Status on File) Date Activated Date Inactivated Comments 04/04/2020 7:09 PM 04/18/2020 5:20 PM Full code
--- OUTSIDE RECORDS SUMMARY | 2024-12-21 16:03 | XMS_ITS | Clinical Summary ---
Author Organization [facility] Address [address] [place] [address] Care Team Providers Care Button Spindler Name Role Phone Jaiden Sotelo MD Primary Care Provider + Source Comments [facility],non-owned Affiliates and Associated Physician Practices is amultiple site organization consisting of ambulatory clinics and hospital sitesin [place], [place], [place] and [place]. This disclosure is being madepursuant to the Care Everywhere program and may not contain all information available regarding this patient. Last updated 17.[facility] Allergies Active Allergy Reactions Criticality Noted Date [...] Active Additional Information Patient not taking.Reported on 10/17/2024 predniSONE (DELTASONE) 10 MG tablet Take 1.5 tablets by mouth once daily 0 Active Additional Information Patient not taking.Reported on 10/17/2024 docusate sodium (COLACE) 100 MG capsule Take 1 capsule by mouth 2 times daily 0 Active Additional Information Patient not taking.Reported on 10/17/2024 methocarbamol (ROBAXIN) 750 MG tablet Take 1 tablet by mouth 2 times daily as needed for Muscle Spasms 60 tablet 1 0 Active Additional Information Patient not taking.Reported on 10/17/2024 aspirin (ASPIRIN) 81 MG chew tablet Take [...] patch to skin once daily Active B Ksfkmtc-T-Gtkbf Acid (RENAL VITAMIN) 0.8 MG TABS Active metFORMIN ER 24hr (GLUCOPHAGE XR) 500 MG tablet Take 1,000 mg by mouth 2 times daily 1 Active tamsulosin (Flomax) 0.4 MG capsule Take 2 (two) capsules by mouth at bedtime Active finasteride (Proscar) 5 MG tablet Take 1 (one) tablet by mouth once daily 5 Active amLODIPine (Norvasc) 5 MG tablet Take 2 (two) tablets by mouth every morning 5 Active calcitriol (Rocaltrol) 0.25 MCG capsule Take 1 (one) capsule by mouth every Thursday, Thursday & Thursday 5 Active Active Problems Problem Noted Date Diagnosed Date Shortness of breath 11/22/2019 Chronic midline low back pain 10/28/2019 Abdominal pain 10/27/2019 Preop examination 07/02/2018 Spine deformity, acquired Encounters Date Type Department Care Team Description 11/21/2024 Telephone [facility] - Centralized Scheduling [address] [place] [address] Grzegorz Mi MD Appointment 11/18/2024 Telephone [facility] - Neurosurgery [address] [place] [phone] Abiola Briscoe RN General 11/17/2024 Telephone [facility] - Neurosurgery [address] [place] [phone] Abiola Briscoe RN General 10/27/2024 11:10 AM CDT - 10/27/2024 11:59 PM CDT Hospital Encounter [facility] EEG/EMG [address] [place] [phone] Unknown, Provider Gaston Simeon MD Discharge Disposition: Home or Self Care 10/27/2024 Travel 10/17/2024 1:27 PM CDT - 10/17/2024 11:59 PM CDT Hospital Encounter [facility] DIAGNOSTIC RAD OP [address] [place] [phone] Grzegorz Mi MD Discharge Disposition: Home or Self Care 10/17/2024 1:00 PM CDT Office Visit [facility] - Neurosurgery [address] [facility] [place] [address] Grzegorz Mi MD Spine deformity, acquired (Primary Dx) 10/17/2024 Travel 10/12/2024 Orders Only [facility] - Neurosurgery [address], [address] [place] [address] Laura Ceja APRN-[facility]ER Spine deformity, acquired from Last 3 Months Immunizations Immunization Administration Dates Next Due INFLUENZA [...] Sign Reading Time Taken Comments Blood Pressure 102/62 10/17/2024 1:05 PM CDT Pulse 77 10/17/2024 1:05 PM CDT Temperature 36.4 C (97.5 F) 11/19/2020 11:35 AM CDT Respiratory Rate 18 10/17/2024 1:05 PM CDT Oxygen Saturation 96% 10/17/2024 1:05 PM CDT Inhaled Oxygen Concentration 21% 12/10/2019 1 :16 PM CDT Weight 89.4 kg (197 lb) 10/17/2024 1:05 PM CDT Height 177.8 cm (5' 10) 11/19/2020 11:35 AM CDT Body Mass Index 28.27 11/19/2020 11:35 AM CDT Plan of Treatment Health Maintenance Due Date Last Done Comments COLOGUARD (AGES 45-75) - COLON CA SCREENING 1950 COLON MONITORING 1949 COLONOSCOPY - COLON CA SCREENING 1949 CT COLONOGRAPHY - COLON CA SCREENING 1950 Colorectal Cancer Screening 1949 FIT - COLON CA SCREENING 1949 FLEX SIG - COLON CA SCREENING 1949 HEPATITIS C SCREENING 01/15/1967 DTAP/TDAP/TD VACCINES (1 - Tdap) 01/20/1968 PNEUMOCOCCAL VACCINE 50+ (1 of 1 - PCV) 1999 ZOSTER VACCINE (2 of 2) 12/13/2018 10/18/2018 Respiratory Syncytial Virus (RSV) Vaccine Pt: or over 60 yrs (1 - 1-dose 75+ series) 01/20/2024 DEPRESSION SCREENING 02/24/2024 MEDICARE AWV CALENDAR YEAR 2024 COVID-19 VACCINE ( season) 2024 11/26/2022, 07/11/2021, 03/25/2020, Additional history exists INFLUENZA VACCINE (#1) 2024 , 11/16/2019, 10/15/2018, Additional history exists HEPATITIS B VACCINE Aged Out No longe [...] A/C/Y/W VACCINE Aged Out No longer eligible based on patient's age to complete this topic Medical Devices Implanted Type Area Crude Tester Device Identifier Shelf Expiration Date Model / Serial / Lot Penile Implant Other (Type not listed) Penis Coloplast Co TITAN / / Graft Bone Canc 1-4mm 15ml Frzdr Crsh Implanted:Qty: 1 on 10/29/2016 by Yuniel Fuchs MD at [facility] Spine Lumbar Allosource 05/03/2020 [id number] / / [id number] Sub Bngf Progenix Dbm Bvn Clgn Ptty 10ml Implanted:Qty: 1 on 10/29/2016 by Yuniel Fuchs MD at [facility] Spine Lumbar Medtronic Sofamor Danek Inc 04/14/2018 [id number] / / [id number] Locking Nuts Implanted:Qty: 6 on 10/29/2016 by Yuniel Fuchs MD at [facility] Spine Lumbar [id number] / / Corelink Connectors Implanted:Qty: 6 on 10/29/2016 at [facility] Spine Lumbar 09599.01 / / Corelink 6.5 X 55 Screw Implanted:Qty: 4 on 10/29/2016 by Yuniel Fuchs MD at [facility] Spine Lumbar 81188.55 / / Corelink 6.5 X 50 Screw Implanted:Qty: 2 on 10/29/2016 by Yuniel Fuchs MD at [facility] Spine Lumbar 71236.50 / / Corelink 65mm Khoi Implanted:Qty: 2 on 10/29/2016 by Yuniel Fuchs MD at [facility] Spine Lumbar [id number] / / Corelink 22mm Crosslink Implanted:Qty: 1 on 10/29/2016 by Yuniel Fuchs MD at [facility] Spine Lumbar [id number] / / Implt Dual Lead Sacroiliac 11.5 X 55 Implanted:Qty: 1 on 07/02/2018 by Yuniel Fuchs MD at [facility] Right: Spine [employer] [place] [id number] / / Implt Dual Lead Sacroiliac 11.5 X 45 Implanted:Qty: 1 on 07/02/2018 by Yuniel Fuchs MD at [facility] Right: Spine [employer] [id number] / / Graft Bone Alfs Dbm 10ml Gel Implanted:Qty: 1 on 07/02/2018 by Yuniel Fuchs MD at [facility] Right: Spine Allosource 07/25/2020 [id number] / / [id number] Cmnt Bone Kyphon Xpede Spnl Mxr Implanted:Qty: 1 on 11/11/2019 by Grzegorz iM MD at [facility] N/A: Spine Kyphon Inc 04/22/2022 [id number] / / [id number] Cmnt Bone Hv-R Kphx Mxr Grad Mrk Dspns Implanted:Qty: 1 on 11/11/2019 by Grzegorz Mi MD at [facility] N/A: Spine Kyphon Inc 04/22/2022 [id number] / / [id number] Cmnt Bone Kyphon Xpede Spnl Mxr Implanted:Qty: 1 on 11/11/2019 by Grzegorz Mi MD at [facility] N/A: Spine Kyphon Inc 12/23/2021 CX01A / / [id number] Cmnt Bone Kyphon Xpede Spnl Mxr Implanted:Qty: 1 on 11/11/2019 by Grzegorz Mi MD at [facility] N/A: Spine Kyphon Inc 05/23/2022 CX01A / / [id number] Medtronic Interbody Fusion Device Implanted:Qty: 1 on 11/11/2019 by Grzegorz Mi MD at [facility] N/A: Spine 07/23/2025 [id number] / / [id number] Graft Bone Grftn Dbm Aspt 5x2.5cm Post - [id number] Implanted:Qty: 1 on 11/11/2019 by Grzegorz Mi MD at [facility] N/A: Spine Osteotech Inc 07/12/2022 [id number] / [id number] / Graft Bone Grftn Dbm Aspt 5x2.5cm Post - [id number] Implanted:Qty: 1 on 11/11/2019 by Grzegorz Mi MD at [facility] N/A: Spine Osteotech Inc 05/30/2022 [id number] / [id number] / Interbody Fusion Device Implanted:Qty: 1 on 11/11/2019 by Grzegorz Mi MD at [facility] N/A: Spine Medtronic Neurological 04/28/2025 [id number] / / [id number] Graft Bone Grftn Dbm Aspt 5x2.5cm Post - [id number] Implanted:Qty: 1 on 11/11/2019 by Grzegorz Mi MD at [facility] N/A: Spine Osteotech Inc 07/12/2022 [id number] / [id number] / Screw Set .25in Std 32 Thrd Spne Cap Implanted:Qty: 8 on 11/11/2019 by Grzegorz Mi MD at [facility] N/A: Spine Medtronic Sofamor Danek Inc [id number] / / Screw 9.5mm 90mm Ma Spne Solera Cd Hzn Implanted:Qty: 2 on 11/11/2019 by Grzegorz Mi MD at [facility] N/A: Spine Medtronic Sofamor Danek Inc [id number] / / Screw Set Ti Spnl Brk Off Cd Hzn Nonster Implanted:Qty: 18 on 11/11/2019 by Grzegorz Mi MD at [facility] N/A: Spine Medtronic Sofamor Danek Inc [id number] / / Khoi Spnl Rd 500mm 6mm Str Ccm Ln Implanted:Qty: 2 on 11/11/2019 by Grzegorz Mi MD at [facility] N/A: Spine Medtronic Sofamor Danek Inc [id number] / / Khoi Spnl 500mm 5.5mm Cd Hzn Str Ti Ln Cp Implanted:Qty: 1 on 11/11/2019 by Grzegorz Mi MD at [facility] N/A: Spine Medtronic Inc [id number] / / Laminal Connector Screw Implanted:Qty: 4 on 11/11/2019 by Grzegorz Mi MD at [facility] N/A: Spine Medtronic Inc [id number] / / 6.5 X 45 Screw Implanted:Qty: 2 on 11/11/2019 by Grzegorz Mi MD at [facility] N/A: Spine Medtronic Inc [id number] / / 7.5 X 45 Screw Implanted:Qty: 4 on 11/11/2019 by Grzegorz Mi MD at [facility] N/A: Spine Medtronic Inc [id number] / / 7.5 X 50 Screw Implanted:Qty: 4 on 11/11/2019 by Grzegorz Mi MD at [facility] N/A: Spine Medtronic Inc [id number] / / 7.5 X 55 Screw Implanted:Qty: 4 on 11/11/2019 by Grzegorz Mi MD at [facility] N/A: Spine Medtronic Inc [id number] / / Inner Trs Adapter Implanted:Qty: 16 on 11/11/2019 by Grzegorz Mi MD at [facility] N/A: Spine Medtronic Inc [id number] / / 6.5 X 50 Screws Implanted:Qty: 2 on 11/11/2019 by Grzegorz Mi MD at [facility] N/A: Spine Medtronic Inc [id number] / / Graft Bone Grftn Dbm 5cc Ptty Jr - [id number] Implanted:Qty: 1 on 11/21/2019 by Grzegorz Mi MD at [facility] N/A: Spine Osteotech Inc 08/02/2022 [id number] / [id number] / Stpl Bone 2 Hl Lopro Top Ld Intchn Ti Implanted:Qty: 1 on 11/21/2019 by Grzegorz Mi MD at [facility] N/A: Spine Medtronic Sofamor Danek Inc [id number] / / Stpl Bone 2 Hl Lopro Top Ld Intchn Ti Implanted:Qty: 1 on 11/21/2019 by Grzegorz Mi MD at [facility] N/A: Spine Medtronic Sofamor Danek Inc [id number] / / Screw 5.5mm 35mm Spne Thor Ant Slf-Tap Implanted:Qty: 4 on 11/21/2019 by Grzegorz Mi MD at [facility] N/A: Spine Medtronic Sofamor Danek Inc [id number] / / 8cm Plate Implanted:Qty: 1 on 11/21/2019 by Grzegorz Mi MD at [facility] N/A: Spine Medtronic Sofamor Danek Spine [id number] / / Nut Lck Vntg Ant Thorlmbr Spne Ti Screw Implanted:Qty: 2 on 11/21/2019 by Grzegorz Mi MD at [facility] N/A: Spine Medtronic Sofamor Danek Inc [id number] / / 20mm E Stratosphere Cage Implanted:Qty: 1 on 11/21/2019 by Grzegorz Mi MD at [facility] N/A: Spine Medtronic Sofamor Danek Inc [id number] / / Procedures Procedure Name Priority Date/Time Associated Diagnosis Comments XR THORACIC SPINE 2VW Routine 10/17/2024 1:34 PM CDT Spine deformity, acquired XR LUMBAR SPINE 2 OR 3VW Routine 10/17/2024 1:34 PM CDT Spine deformity, acquired from Last 3 Months Results * XR Lumbar Spine 2 or 3Vw (10/17/2024 1:34 PM CDT) Anatomical Region Laterality Modality Spine Digital Radiogra phy 10/18/2024 1:42 AM CDT Impressions 10/18/2024 1:45 AM CDT IMPRESSION: Thoracic and lumbar spine: Instrumented spinal fusion is present with posterior rods and screws from T9 to the sacrum and iliac bones. There is corpectomy and placement of a vertebral body prosthesis in the region of L2 and L3. A left lateral plate and screws is visible at L1-L4. Lumbar interbody devices are present. Cement is present in multiple mid to lower thoracic vertebra. Lumbar laminectomies are present. There is a fusion device of the intra-articular joint. There is no fracture of the instrumentation. > Interpreting Provider: Osmar Sinclair MD on 10/18/2024 1:45 AM Narrative 10/18/2024 1:45 AM CDT PROCEDURE: XR THORACIC SPINE 2VW, XR LUMBAR SPINE 2 OR 3VW DATE/TIME OF EXAM: 10/17/2024 1:34 PM CLINICAL INFORMATION: None relevant/not provided if blank. Indication: M43.9: Spine deformity, acquired Additional History: COMPARISON: 11/19/2020, XR SCOLIOSIS 2 VW Procedure Note Osmar Sinclair MD - 10/18/2024 PROCEDURE: XR THORACIC SPINE 2VW, XR LUMBAR SPINE 2 OR 3VW DATE/TIME OF EXAM: 10/17/2024 1:34 PM CLINICAL INFORMATION: None relevant/not provided if blank. Indication: M43.9: Spine deformity, acquired Additional History: COMPARISON: 11/19/2020, XR SCOLIOSIS 2 VW IMPRESSION: Thoracic and lumbar spine: Instrumented spinal fusion is present with posterior rods and screwsfrom T9 to the sacrum and iliac bones. There is corpectomy and placement of a vertebral body prosthesis in the region of L2 and L3. A left lateralplate and screws is visible at L1-L4. Lumbar interbody devices are present. Cement is present in multiple mid to lower thoracic vertebra. Lumbar laminectomies are present. There is a fusion device of theintra-articular joint. There is no fracture of the instrumentation. > Interpreting Provider: Osmar Sinclair MD on 10/18/2024 1:45 AM us Grzegorz Mi MD DIAGNOSTIC IMAGING ORDER JORDYN Final Result * XR Thoracic Spine 2Vw (10/17/2024 1:34 PM CDT) Anatomical Region Laterality Modality Spine Digital Radiogra phy 10/18/2024 1:42 AM CDT Impressions 10/18/2024 1:45 AM CDT IMPRESSION: Thoracic and lumbar spine: Instrumented spinal fusion is present with posterior rods and screws from T9 to the sacrum and iliac bones. There is corpectomy and placement of a vertebral body prosthesis in the region of L2 and L3. A left lateral plate and screws is visible at L1-L4. Lumbar interbody devices are present. Cement is present in multiple mid to lower thoracic vertebra. Lumbar laminectomies are present. There is a fusion device of the intra-articular joint. There is no fracture of the instrumentation. > Interpreting Provider: Osmar Sinclair MD on 10/18/2024 1:45 AM Narrative 10/18/2024 1:45 AM CDT PROCEDURE: XR THORACIC SPINE 2VW, XR LUMBAR SPINE 2 OR 3VW DATE/TIME OF EXAM: 10/17/2024 1:34 PM CLINICAL INFORMATION: None relevant/not provided if blank. Indication: M43.9: Spine deformity, acquired Additional History: COMPARISON: 11/19/2020, XR SCOLIOSIS 2 VW Procedure Note Osmar Sinclair MD - 10/18/2024 PROCEDURE: XR THORACIC SPINE 2VW, XR LUMBAR SPINE 2 OR 3VW DATE/TIME OF EXAM: 10/17/2024 1:34 PM CLINICAL INFORMATION: None relevant/not provided if blank. Indication: M43.9: Spine deformity, acquired Additional History: COMPARISON: 11/19/2020, XR SCOLIOSIS 2 VW IMPRESSION: Thoracic and lumbar spine: Instrumented spinal fusion is present with posterior rods and screwsfrom T9 to the sacrum and iliac bones. There is corpectomy and placement of a vertebral body prosthesis in the region of L2 and L3. A left lateralplate and screws is visible at L1-L4. Lumbar interbody devices are present. Cement is present in multiple mid to lower thoracic vertebra. Lumbar laminectomies are present. There is a fusion device of theintra-articular joint. There is no fracture of the instrumentation. 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
--- OUTSIDE RECORDS SUMMARY | 2024-12-21 16:03 | XMS_ITS | Encounter Summary ---
Author Organization [facility] Address [address] [place] [address] Care Team Providers Care Engine Watchman Name Role Phone Jaiden Sotelo MD Primary Care Provider + Encounter Details Date Type Department Care Team (Late st Contact Info) Description 09/16/2018 [facility] Outpatient Visit EXTERNAL NON-[facility] DEPT Unknown, [...] Author No 07/02/2018 4:59 PM CDT Rachel Torers RN * Does person have difficulty doing [...] documented as of this encounter Care Teams Engine Watchman Relationship Specialty Start Date End Date Jaiden Sotelo MD [address] [address] PCP - General Family Medicine 10/01/16 documented as of this encounter
--- OUTSIDE RECORDS SUMMARY | 2024-12-21 16:03 | XMS_ITS | Data Portability ---
Author Organization [facility] [employer], [facility] Address [address] [address] Assessment No assessment recorded. Plan of Treatment Reminders Order Date Submit Date Provider Last Modified By Organization Details Last Modified Time Details Appointments None recorded. Lab None recorded. Referral None recorded. Procedures None recorded. Surgeries None recorded. Imaging x-ray, cervical spine - room 7 2015 016 [email or web address] Not available 6 18:21:11 x-ray, lumbar spine - room 7 2015 016 [email or web address] 4 Not available 6 18:21:11 MRI, C-spine - eval- DDD, soft tissue enlargement distal c spine 2015 016 [email or web address] 4 [facility] [place], [address] , [place], [address], 6 18:21:11 Medication Orders None recorded. Patient TargetsNo targets recorded. Patient Instructions Encounter Date Encounter Id Patient Instructions Last Modified By Organization Details Last Modified Time 03/28/2015 [id number] cervical disc disease: care instructions Not available 04/27/2015 18:21:11 neuropathic pain : care instructions Not available 04/27/2015 18:21:11 Reason for Referral None Reported. Results Created Date Observation Date Name Description Value Unit Range Abnormal Flag Note LastModifiedBy Organization Detail LastModifiedTime 04/23/19 16 MRI, C-spi ne No observ ation record ed. [email or web address] Not Available 2015 10:14:35 04/25/19 16 MRI, cervi jackie spine , w/o contr ast No observ ation record ed. [email or web address] Not Available 05/06 12:52:04 Result Notes None recorded. Problems Name Problem SNOMED Code Status Onset Date Resolution Date Notes Provider Name and Address Organization Details Recorded Time Chronic back pain 185817792 Bulmaro Lawton [address], [place], [address], [facility] - [facility], [facility] 6 18:21:11 Spondylolisthe sis, grade 1 81888730 Active Abiola Lawton [address], [place], [address], [facility] [place] - [facility] 6 18:21:11 Degenerative spondylolisthe sis 0483418 Active Abiola Lawton [address], [place], [address], [facility] [place] - [facility] 6 18:21:11 Lumbar spondylosis 367256262 Active Abiola Hairstonlieu [address], [place], [address], [facility] [place] - [facility] 6 18:21:11 Degeneration of cervical intervertebral disc 65766368 Active Abiola Hairstonlieu [address], [place], [address], [facility] - [facility] 6 18:21:11 Degeneration of lumbar intervertebral disc 62285668 Active Abiola Hairstonlieu [address], [place], [address], [facility] [place] - [facility] 6 18:21:11 Neuropathy 567370346 Active Abiola Boweneu [address], [place], [address], [facility] [place] - [facility] 6 18:21:11 Problem Notes None recorded. Procedures Surgical History Date Name Laterality Status Provider Name and Address Organization Details Recorded Time Knee Surgery completed Chyna Snofke [employer] [facility], [facility] 03/28/2015 12:33:35 Imaging Results None recorded. Procedure Notes None recorded. Medical Equipment None Reported. Allergies No known drug allergies Medications Name Sig Start Date Stop Date Status Note LastModified by Organization Details LastModified Time gabapentin 600 mg tablet 03/28 completed Not Available Not Available Not Available meloxicam 15 mg tablet Take 1 tablet every day by oral route. active Not Available Not Available No t Available trimethoprim 100 mg tablet active Not Available Not Available Not Available doxepin 10 mg capsule active Not Available Not Available N ot Available doxycycline monohydrate 100 mg tablet 03/28 completed Not Available Not Available Not Available omeprazole 20 mg capsule,cameron yed release Take 1 capsule every day by oral route. active Not Available Not Available No t Available allopurinol 300 mg tablet Take 1 tablet every day by oral route. active Not Available Not Available No t Available hydrochlorot hiazide 25 mg tablet Take 1 tablet every day by oral route. active Not Available Not Available No t Available clobetasol 0.05 % scalp solution 03/28 completed Not Available Not Available Not Available metformin ER 500 mg tablet,exten ded release 24 hr active Not Available Not Available Not Available doxazosin 2 mg tablet active Not Available Not Available No t Available Lyrica 150 mg capsule active Not Available Not Available N ot Available aspirin active Not Available Not Avail able Not Available B Complex active Not Available Not Reina ilable Not Available Glucosamine active Not Available Not A vailable Not Available Chondroitin Sulfate active Not Available Not Available Not Available Leonard Multivitamin For Men active Not Available Not Available Not Available krill ijc-kd-8-dha -epa-phospho lipids 300 mg-90 mg-24 mg-50 mg capsule Take by oral route. active Not Available Not Available No t Available Vitals Date Recorded Body weight Heart rate Body mass index (BMI) Body height Systolic And Diastolic Provider Name and Address Organization Details Last Updated DateTime 03/28/2015 05562.47 4 g 87 /min 26.4 kg/m2 185.42 cm 160/97 mm[Hg] Chyna Kamara [employer] [facility], [facility] 03/28/2015 12:06:50 Social History Question Answer Notes LastModified by Organizat ion Details LastModified Time Tobacco Smoking Status Never Smoker Chyna Kamara yecenia [employer], [facility] 03/28/2015 12:33:35 Marital Status Single [employer] not available 03/28/2015 Sex: Unknown Functional Status Question Answer Note LastModified by Organization D etails LastModified Time What is your level of alcohol consumption? Moderate ssnofke Information not available 03/28/2015 Mental Status None recorded. Family History Nothing Reported. Medical History Condition Response Hypertension Y Past Encounters Encounter ID Performer Location Encounter Start Date Encounter Closed Date Diagnosis/Indication Diagnosis SNOMED-CT Code Diagnosis ICD10 Code Diagnosis IMO Codes Diagnosis Note [id number] Gaetano Monteiro MD [facility] [address] [facility] [place] [address] 03/28/2015 12:03:03 03/28/2015 13:44:57 Chronic back pain 144126569 M54.9 Spondyloli sthesis, grade 1 90601745 M43.16 Degenerati ve spondylolisthesis 3713762 M43.16 Lumbar spondylosis 88715 0009 M47.896 Degenerati on of cervical intervertebral disc 94609843 M50.30 Degenerati on of lumbar intervertebral disc 26063062 M51.36 Neuropathy 627413230 G62 .9 Health Concerns Section Related Observation LastModified by Organization Detai ls LastModified Time None Recorded Concern Status LastModified by Organization Details LastModified Time None Recorded Advance Directives Directive None Recorded Payers Insurance Date Sequence Insurance Name Policy Number Policy Yuen Covered Member ID Yuen Member ID Guarantor Name 04/11/2015 1 [place] Santi Torrez [id number] Santi Torrez 03/28/2015 2 [employer] - PLAN N (MEDICARE SUPPLEMENT) Santi Torrez [id number] Santi Torrez Notes Date Note Type Note Provider Name and Address Organization Details Recorded Time 03/28/2015 text/html See Dictated NoteReported by Patient Abiola Banuelosaulieu [address], [place], [address], [employer], [facility] 04/27/2015 18:21:12
--- OUTSIDE RECORDS SUMMARY | 2024-12-21 16:03 | XMS_ITS | Encounter Summary ---
Author Organization [facility] Health Address [address] [place] [address] Care Team Providers Care Plating Equipment Tender Name Role Phone Jaiden Sotelo MD [...] documented as of this encounter Care Teams Plating Equipment Tender Relationship Specialty Start Date End Date Jaiden Sotelo MD [address] [address] PCP - General Family Medicine 10/01/16 documented as of this encounter
--- OUTSIDE RECORDS SUMMARY | 2024-12-21 16:03 | XMS_ITS | Encounter Summary ---
Author Organization [facility] Health Address [address] [place] [address] Care Team Providers Care Computer Equipment Installer Name Role Phone Jaiden Sotelo MD Primary Care Provider + Encounter Details Date Type Department Care Team (Late st Contact Info) Description 11/16/2018 [facility] Outpatient Visit EXTERNAL NON-[facility] DEPT Unknown, Provider [...] documented as of this encounter Care Teams Computer Equipment Installer Relationship Specialty Start Date End Date Jaiden Sotelo MD [address] [address] PCP - General Family Medicine 10/01/16 documented as of this encounter
--- OUTSIDE RECORDS SUMMARY | 2024-12-21 16:03 | XMS_ITS | Clinical Summary ---
Author Organization [facility] Address [address] [address] Phone Care Team Providers Care Survey Worker Name Role Phone Jaiden Mendez MD Primary Care Provider [phone] Allergies Active Allergy Reactions Criticality Noted Date [...] (03/24/2021): Added automatically from request for surgery [id number] Bilateral pseudophakia 10/21/2017 Overview (03/24/2021): Last Assessment [...] 10/15/2018 Insurance [employer] MEDICARE ADVANTAGE Care Teams Survey Worker Relationship Specialty Start Date End Date Jaiden Mendez MD [address] [address] PCP - General Family Medicine 03/12/21
--- OUTSIDE RECORDS SUMMARY | 2024-12-21 16:03 | XMS_ITS | Clinical Summary ---
Author Organization [facility] Address [address] [place] [address] Care Team Providers Care Store Stock Associate Name Role Phone Jaiden Sotelo MD Primary Care Provider [phone] Allergies No known active allergies Medications B [...] Vaccines (3 of 3) 12/13/2018 019, 01/21/2014 RSV Immunization or 60+ Years (1 - 1-dose 75+ series) 01/20/2024 COVID-19 Vaccine (4 - 2024-2 6 season) 2024 11/24/2020, 03/25/2020, 03/04/2020 Influenza Adult (#1) 2024 11/16/2019, 10/15/2018, 02/10/2012 Hepatitis A Vaccines Aged Out No long er eligible based on patient's age to complete this topic Meningococcal B Vaccine Aged Out No l onger eligible based on patient's age to complete this topic Meningococcal Vaccine Aged Out No gurvinder kamala eligible based on patient's age to complete this topic RSV Immunizations Under 20 Months Aged Out No longer eligible b ased on patient's age to complete this topic Insurance MEDICAID A[employer] MEDICARE [facility] Advance Directives * Full Code (Latest Code Status on File) Date Activated Date Inactivated Comments 08/08/2021 12:10 PM 08/09/2021 12:47 PM * Full Code Date Activated Date Inactivated Comments 06/18/2021 12:13 PM 06/19/2021 8:31 AM Care Teams Store Stock Associate Relationship Specialty Start Date End Date Jaiden Sotelo MD [address] [address] PCP - General FAMILY PRACTICE 06/18/21
--- OUTSIDE RECORDS SUMMARY | 2024-12-21 16:03 | XMS_ITS | Encounter Summary ---
Author Organization [facility] Health Address [address] [place] [address] Care Team Providers Care Panelbeater Name Role Phone Jaiden Sotelo MD Primary Care Provider + Encounter Details Date Type Department Care Team (Late st Contact Info) Description 10/14/2018 [facility] Outpatient Visit [facility]TERNAL NON-[facility] DEPT Unknown, Provider [...] documented as of this encounter Care Teams Panelbeater Relationship Specialty Start Date End Date Jaiden Sotelo MD [address] [address] PCP - General Family Medicine 10/01/16 documented as of this encounter
--- OUTSIDE RECORDS SUMMARY | 2024-12-21 16:03 | XMS_ITS | Encounter Summary ---
Author Organization [facility] Health Address [address] [place] [address] Care Team Providers Care Hoop Puncher Name Role Phone Jaiden Sotelo MD Primary Care Provider + Encounter Details Date Type Department Care Team (Late st Contact Info) Description 07/22/2018 [facility] Outpatient Visit EXTERNAL NON-[facility] DEPT Unknown, Provider [...] documented as of this encounter Care Teams Hoop Puncher Relationship Specialty Start Date End Date Jaiden Sotelo MD [address] [address] PCP - General Family Medicine 10/01/16 documented as of this encounter
[2024-12-21 16:15] LABS: Total Protein Urine Random 12 mg/dL; Ur Ttl Prot Creatinine Ratio 0.13 mg/mg (0-0.20)
== END 2024-12-21 14:14 | disposition home or self-care (01) ==
PROVIDERS: PCP Family Medicine Adolescent Medicine; Visit Provider Internal Medicine Nephrology
DX: I12.9 Hypertensive chronic kidney disease with stage 1 through stage 4 chronic kidney disease, or unspecified chronic kidney disease (principal); N18.32 Chronic kidney disease, stage 3b; E11.22 Type 2 diabetes mellitus with diabetic chronic kidney disease; N25.81 Secondary hyperparathyroidism of renal origin; E55.9 Vitamin D deficiency, unspecified
CPT/HCPCS: 36415; 80069; 82306; 82570; 83970; 84156

== ENCOUNTER 2025-01-30 10:17 | Outpatient (CLI) | payer MEDICARE, MEDICAID, SELFPAY ==
[2025-01-30 10:40] LABS: Hemoglobin A1C 6.6 % (<5.7)
[2025-01-30 10:53] LABS: Magnesium 1.7 mg/dL (1.6-2.3)
== END 2025-01-30 10:18 | disposition home or self-care (01) ==
PROVIDERS: PCP Family Medicine Adolescent Medicine; Visit Provider Family Medicine Adolescent Medicine
DX: R25.2 Cramp and spasm (principal); E11.22 Type 2 diabetes mellitus with diabetic chronic kidney disease; N18.31 Chronic kidney disease, stage 3a
CPT/HCPCS: 36415; 83036; 83735